=== PATIENT | male | born 1965 | race Caucasian/White ===

== ENCOUNTER 2023-11-27 15:49 | Emergency (ER) | payer OTHER, SELFPAY ==
[2023-11-27 15:52] VITALS: BP 144/95; PULSE 66; RESP 16; TEMP 36.6; O2SAT 99; BMI 21.4
--- NOTE | 2023-11-27 16:13 | ED.GENADUL1 ---
HPI - General Adult General Chief complaint: Dental/Oral Stated complaint: Dental Pain Time Seen by Provider: 11/27/23 15:56 Source: patient Mode of arrival: walk-in Limitations: no limitations History of Present Illness HPI narrative: Patient is a 58-year-old male who is presenting to the ER today with chief complaint of concern that he is having a partial piece of his tooth popping through his inner hard plate gum tissue from a previous fractured tooth. Patient says he has a dentist appointment in December. Patient is here because he wants a x-ray to see if it is a tooth or not. I educated patient that we do not perform dental x-rays in the ER. Patient states this small area has been there for months, he states today is 7/10 pain and wanted an x-ray to see if it is a tooth or not. No new swelling, no redness, no foul taste in his mouth, no drainage of pus. No signs of any infection, noticed facial swelling. All systems are negative except as noted/marked. All systems reviewed and otherwise negative. Nurses note and vital signs reviewed and patient is not hypoxic. Nurses notes reviewed and patient is noted to be non-hypoxic. General: The patient is comfortable, alert and oriented x3, well appearing, non toxic in no apparent distress. Patient smells of cigarette smoke. Head: Atraumatic and normocephalic. Eyes: Normal conjunctiva ENT: The oropharynx is normal. No pharyngeal erythema, uvular edema, tonsillar exudates, asymmetry or trismus. Uvula is midline. Patient has his lower teeth all extracted. Mouth is normal to inspection With the exception of a pain on percussion to the left lower inner aspect of the left lower hard palate, there is a 2 x 2 millimeter hard, jagged possible piece of tooth that is working its way through the soft tissue. This is not new, this has been there for months. There is no evidence of facial asymmetry or abscess formation. Floor of the mouth is soft. No tenderness in the submental or submandibular space. No tongue elevation or deviation. The patient has no evidence of periapical abscess, gingivitis, ANUG or other acute pathology. Airway is patent. Neck: The neck demonstrates normal range of motion. No meningeals signs are present. No stridor. No masses or lymphandenopathy noted. Respiratory: No acute distress, lungs are clear to auscultation, no wheezing, rhonchi, or rales noted. No stridor or retractions are noted. Cardiovascular: Regular rate and rhythm Skin: The skin exam shows no evidence of rashes Neuro: Alert and oriented x4, normal speech Lymphatic: No cervical lymphadenopathy Related Data Home Medications Medication Instructions Recorded Confirmed olanzapine 20 mg tablet 20 mg PO DAILY 11/27/23 11/27/23 sertraline 100 mg tablet 200 mg PO DAILY 11/27/23 11/27/23 Allergies Allergy/AdvReac Type Severity Reaction Status Date / Time Penicillins AdvReac Mild Verified 11/27/23 15:55 PFSH PFSH Social History Smoking status: Current every day smoker Exam Constitutional Vital Signs, click to edit/add: Last Vital Signs Temp 97.9 F 11/27/23 15:52 Pulse 66 11/27/23 15:52 Resp 16 11/27/23 15:52 BP 144/95 H 11/27/23 15:52 Pulse Ox 99 11/27/23 15:52 O2 Del Method Room Air 11/27/23 15:52 Course Vital Signs Vital signs: Vital Signs Temperature 97.9 F 11/27/23 15:52 Pulse Rate 66 11/27/23 15:52 Respiratory Rate 16 11/27/23 15:52 Blood Pressure 144/95 H 11/27/23 15:52 Pulse Oximetry 99 11/27/23 15:52 Oxygen Delivery Method Room Air 11/27/23 15:52 Temperature 97.9 F 11/27/23 15:52 Pulse Rate 66 11/27/23 15:52 Respiratory Rate 16 11/27/23 15:52 Blood Pressure 144/95 H 11/27/23 15:52 Pulse Oximetry 99 11/27/23 15:52 Oxygen Delivery Method Room Air 11/27/23 15:52 Medical Decision Making MDM Narrative Medical decision making narrative: Patient was given dental anesthesia. Patient was educated we do not perform dental x-rays in the ER. Patient will call his dentist to see if there is a cancellation that he can be seen sooner. Patient has no acute findings on today's exam. Patient's appearance of the ER he is discussing is inside of where tooth #20 used to be, left lower soft tissue looks like canker sore but does feel sharp and it may be a possible tooth. Patient understands a plan and follow-up with dentistry Discharge Plan Discharge Chief Complaint: Dental/Oral Clinical Impression: Atypical face pain, Toothache Patient Disposition: Home, Self-Care Time of Disposition Decision: 16:12 Condition: Fair Prescriptions / Home Meds: No Action sertraline 100 mg tablet 200 mg PO DAILY olanzapine 20 mg tablet 20 mg PO DAILY Instructions: Toothache (ED), Atypical Facial Pain (ED) Additional Instructions: See your dentist at your scheduled appointment. Call to see if there is any cancellations to see if he can move your dentist appointment up sooner. Use the cotton balls with medication half a cottonball every 6 hours as needed for pain. Use Tylenol Motrin as needed. Stand Alone Forms: Portal Instructions Referrals: SILVINA BEARD [Primary Care Provider] - 1 week
[2023-11-27] MEDS: BENZOCAINE 30 ML, lidocaine HCL 15 ML MM (16:25)
== END 2023-11-27 16:28 | disposition home or self-care (01) ==
PROVIDERS: Emergency Provider Emergency Medicine; PCP Internal Medicine
DX: K08.89 Other specified disorders of teeth and supporting structures (principal); G50.1 Atypical facial pain; Z79.899 Other long term (current) drug therapy; F17.210 Nicotine dependence, cigarettes, uncomplicated
CPT/HCPCS: 99282

== ENCOUNTER 2024-09-24 06:46 | Emergency (ER) | payer OTHER, SELFPAY ==
[2024-09-24 06:54] VITALS: BP 113/66; PULSE 57; TEMP 36.6; O2SAT 100; BMI 18.8
--- NOTE | 2024-09-24 07:04 | PC.NURSE ---
Patient reports fall from ladder 5 months ago and has had consistent back pain since. pain worsened over the past few days and feels like he can't get comfortable. patient c/o mid thoracic, bilateral scapula and shoulder pain. patient has attempted to take ibuprofen with no relief. patient's habitus is very thin and patient reports he has lost weight recently. areas on thoracic and cervical spine where pain is noted to be protruding more.
--- NOTE | 2024-09-24 07:17 | CT_ITS ---
The [address] [address] Patient Name: GRACE JURADO MRN: [id number] date: 1965 Sex: M Assigned Patient Location: ER Current Patient Location: ER Accession/Order Number: [id number] Exam Date: 09/24/2024 07:37 Report Date: 09/24/2024 08:14 At the request of: LEONARDA GRACE Procedure: CT thoracic spine wo con PROCEDURE: CT thoracic spine wo con HISTORY: pain COMPARISON: None. TECHNIQUE: Axial, Coronal, and Sagittal CT images obtained without IV contrast. Dose reduction techniques were achieved by using automated exposure control and/or adjustment of mA and/or kV according to patient size and/or use of iterative reconstruction technique. FINDINGS: PARASPINAL AREA: Normal with no visible mass. DISCS: No significant disc space narrowing. BONES: Prominent bone encroachment secondary to uncovertebral joint spurring and facet arthropathy involving the right T3-T4 and T4-T5 neural foramen. No significant central canal narrowing. No fracture, spondylolisthesis, bone lesion. OTHER: Negative. CT/CT thoracic spine wo con IMPRESSION: 1. No appreciable acute abnormality. 2. Right T3-T4 and T4-T5 neural foramen narrowing secondary to degenerative facet arthropathy and uncovertebral joint spurring. Electronically authenticated by: ANA BENSON Date: 09/24/2024 08:14
--- NOTE | 2024-09-24 07:17 | XR_ITS ---
The [address] [address] Patient Name: GRACE JURADO MRN: [id number] date: 1965 Sex: M Assigned Patient Location: ER Current Patient Location: ER Accession/Order Number: [id number] Exam Date: 09/24/2024 07:37 Report Date: 09/24/2024 07:59 At the request of: LEONARDA GRACE Procedure: XR chest 2V EXAM: XR chest 2V HISTORY: pain COMPARISON: None. TECHNIQUE: PA and lateral views of the chest performed. FINDINGS: The heart size is normal. The cardiac mediastinal silhouette and hilar shadows are unremarkable. There is no consolidation, pleural effusion or pulmonary vascular congestion. There is no pneumothorax. There is no acute osseous abnormality. XR/XR chest 2V IMPRESSION: There is no acute cardiopulmonary process. Electronically authenticated by: CATHI CARREON Date: 09/24/2024 07:59
--- OUTSIDE RECORDS SUMMARY | 2024-09-24 07:19 | XMS_ITS | CCD ---
Author Organization [facility] Care Team Providers Care Reimbursement Consultant Name Role Phone CARLOS ENRIQUE BEARD Admitting Unavailable CARLOS ENRIQUE BEARD Attending Unavailable CARLOS ENRIQUE BEARD Primary Care Unavailable CARLOS ENRIQUE BEARD Consulting Unavailable GURVINDER HILLIARD Consulting Unavailable CARLOS ENRIQUE BEARD Primary Care Unavailable QUENTIN ZHAO Admitting Unavailable CECE, QUENTIN Attending Unavailable CECE, QUENTIN Consulting Unavailable GUZMAN HAJI Consulting Unavailable AHMEDCODY Consulting Unavailable CARLOS ENRIQUE BEARD Primary Care Unavailable SAM KOENIG Consulting Unavailable QUENTIN ZHAO Admitting Unavailable QUENTIN ZHAO Attending Unavailable QUENTIN ZHAO Consulting Unavailable PURA RUSSELL Consulting Unavailable Josephine Castillo Unavailable [phone] RISA CANADA Attending Unavailable CARLOS ENRIQUE BEARD Attending Unavailable CARLOS ENRIQUE BEARD Attending Unavailable CARLOS ENRIQUE BEARD Attending Unavailable 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 Attending Unavailable Benjy Ackerman Attending Unavailab Benjy Hightower Admitting Unavailab Carlos Enrique Tipton Primary Care Unavailable Allergies Allergy Classification Reported Allergen(s) Allergy Type Date of Onset Reaction(s) Facility (1 source) Penicillins Drug allergy (disorder) 11-03-2016 [facility] Repository (1 source) Penicillin Drug Allergy Unknown [facility] Other (1 source) Penicillins Drug allergy (disorder) 08-04-2023 [facility] Repository Medications Current Medications Medication Drug Class(es) Dates Sig (Normalized) Sig (Original) atorvastatin 20 mg oral tablet (1 source) HMG-CoA Reductase Inhibitor take 1 tablet by mouth once daily Atorvastatin Calcium 20 MG TAKE 1 TABLET BY MOUTH ONCE DAILY Oral for 90 Days Active clindamycin 300 mg oral capsule (1 source) Lincosamide Antibacterial Start: 08-04-2023 take 1 capsule by mouth every twelve hours Clindamycin HCl 300 MG 1 capsule Orally every 12 hrs for 7 days Jul, Active levothyroxine sodium 0.1 mg oral tablet (1 source) l-Thyroxine Levothyroxine Sodium 100 MCG Oral for 90 Days Active mirtazapine 30 mg oral tablet (1 source) Mirtazapine 30 M G Oral for 67 Days Active OLANZapine 20 mg oral tablet (1 source) Atypical Antipsychotic take 1 tablet by mouth once daily OLANZapine 20 MG TAKE 1 TABLET BY MOUTH ONCE DAILY Oral for 67 Days Active sertraline 100 mg oral tablet (1 source) Serotonin Reuptake Inhibitor take 2 tablets by mouth once daily Sertraline HCl 100 MG TAKE 2 TABLETS BY MOUTH ONCE DAILY Oral for 67 Days Active Problems Active Problems Problem Classification Problem Date Documented Date Episodic/Chronic Anxiety disorders (5 sources) Anxiety disorder, unspecified; Translations: [ANXIETY DISORDER UNSPECIFIED] Onset: 0 Chronic Chronic obstructive pulmonary disease and bronchiectasis (1 source) Emphysema, unspecified; Translations: [EMPHYSEMA UNSPECIFIED] Onset: 0 Chronic Disorders of lipid metabolism (1 source) Hyperlipidemia, unspecified; Translations: [HYPERLIPIDEMIA UNSPECIFIED] Onset: 0 Chronic Disorders of lipid metabolism (1 source) Pure hypercholesterolemia, unspecified; Translations: [PURE HYPERCHOLESTEROLEMIA UNSPEC] Onset: 0 Esophageal disorders (1 source) Gastro-esophageal reflux disease without esophagitis; Translations: [GERD WITHOUT ESOPHAGITIS] Onset: 9 Chronic Fluid and electrolyte disorders (2 sources) Hypokalemia; Translations: [Dehydration] Onset: 0 Episodic Nonspecific chest pain (4 sources) Chest pain, unspecified; Translations: [CHEST PAIN UNSPECIFIED] Onset: 0 Episodic Other aftercare (1 source) Other residential (current) drug therapy; Translations: [OTH PENITENTIARY CURRENT DRUG THERAPY] Onset: 0 Episodic Substance-related disorders (1 source) Nicotine dependence, cigarettes, uncomplicated; Translations: [NICOTINE DEPEND CIGARETTES UNCOMP] Onset: 0 Chronic Superficial injury; contusion (1 source) Blister (nonthermal) of oral cavity, initial encounter Episodic Past or Other Problems Problem Classification Problem Date Documented Da te Episodic/Chronic Abdominal pain (4 sources) Unspecified abdominal pain; Translations: [UNSPECIFIED ABDOMINAL PAIN] Onset: 12-17-2018 Episodic Other nutritional; endocrine; and metabolic disorders (1 source) Anorexia; Translations: [ANOREXIA] Onset: 12-23-2018 Episodic Results Test Name Value Interpretation Reference Range Facility CBC AUTO DIFFon 12-05-2019 Basophils (Bld) [#/Vol] 0.1 103/ul Normal 0.0-0.1 [facility] Comment on above: Performed By: #### C BC #### [facility] [address] [place] [address] Loc Risa Basophils/100 WBC (Bld) 1.1 % Normal 0.2-2.0 [facility] Comment on above: Performed By: #### C BC #### [facility] [address] [place] [address] Loc Risa Eosinophils (Bld) [#/Vol] 0.2 103/ul Normal 0.0-0.7 [facility] Comment on above: Performed By: #### C BC #### [facility] [address] [place] [address] Loc Risa Eosinophils/100 WBC (Bld) 2.2 % Normal 0.9-7.0 [facility] Comment on above: Performed By: #### C BC #### [facility] [address] [place] [address] Loc Risa Erythrocyte distribution width (RBC) [Ratio] 15.1 % Critically high 11.0-15.0 [facility] Comment on above: Performed By: #### C BC #### [facility] [address] [place] [address] Loc Risa Hematocrit (Bld) [Volume fraction] 37.2 % Critically low 42.0-54.0 [facility] Comment on above: Performed By: #### C BC #### [facility] [address] [place], [place] [id number] Loc Risa Hemoglobin (Bld) [Mass/Vol] 12.4 g/dL Critically low 14.0-18.0 [facility] Comment on above: Performed By: #### C BC #### [facility] [address] [place] [address] Loc Risa IG # 0.04 10e3/ul Critically high 0.00-0.03 [facility] Comment on above: Performed By: #### C BC #### [facility] [address] [place], [place] [id number] Loc Risa IG % 0.4 % Normal 0.0-0.5 [facility] Comment on above: Performed By: #### C BC #### [facility] [address] [place], [place] [id number] Loc Risa Lymphocytes (Bld) [#/Vol] 2.9 103/ul Normal 1.2-3.8 [facility] Comment on above: Performed By: #### C BC #### [facility] [address] [place] [address] Loc Risa Lymphocytes/100 WBC (Bld) 31.6 % Normal 20.5-60.0 [facility] Comment on above: Performed By: #### C BC #### [facility] [address] [place] [address] Loc Rsia MANUAL DIFF REQ NO Normal [facility] Comment on above: Performed By: #### C BC #### [facility] [address] [place], [place] [id number] Loc Risa MCH (RBC) [Entitic mass] 27.0 pg Normal 25.9-34.0 [facility] Comment on above: Performed By: #### C BC #### [facility] [address] [place] [address] Loc Risa MCHC (RBC) [Mass/Vol] 33.3 g/dL Normal 29.9-35.2 [facility] Comment on above: Performed By: #### C BC #### [facility] [address] [place], [place] [id number] Loc Risa MCV (RBC) [Entitic vol] 81.0 fL Normal 80.0-94.0 [facility] Comment on above: Performed By: #### C BC #### [facility] [address] [place], [place] [id number] Loc Risa Monocytes (Bld) [#/Vol] 0.6 103/ul Normal 0.3-0.8 [facility] Comment on above: Performed By: #### C BC #### [facility] [address] [place], [place] [id number] Loc Risa Monocytes/100 WBC (Bld) 7.0 % Normal 1.7-12.0 [facility] Comment on above: Performed By: #### C BC #### [facility] [address] [place], [place] [id number] Loc Risa Neutrophils (Bld) [#/Vol] 5.3 103/ul Normal 1.4-6.5 [facility] Comment on above: Performed By: #### C BC #### [facility] [address] [place] [address] Loc Risa Neutrophils/100 WBC (Bld) 57.7 % Normal 43.0-75.0 [facility] Comment on above: Performed By: #### C BC #### [facility] [address] [place], [place] [id number] Loc Risa Platelet mean volume (Bld) [Entitic vol] 9.7 fL Normal 9.5-13.5 [facility] Comment on above: Performed By: #### C BC #### [facility] [address] [place], [place] [id number] Loc Risa Platelets (Bld) [#/Vol] 241 103/ul Normal 150-450 [facility] Comment on above: Performed By: #### C BC #### [facility] [address] [place], [place] [id number] Loc Risa RBC (Bld) [#/Vol] 4.59 106/ul Critically low 4.70-6.10 [facility] Comment on above: Performed By: #### C BC #### [facility] [address] [place], [place] [id number] Loc Risa WBC (Bld) [#/Vol] 9.2 103/ul Normal 4.0-11.0 [facility] Comment on above: Performed By: #### C BC #### [facility] [address] [place], [place] [id number] Loc Lord CTA CHEST WO W CONon 020 CTA CHEST WO W CON EXAMINATION: CTA BIENVENIDO ST WO W CON HISTORY: Acute shortness of breath. Mid chest pain. COMPARISON: None. TECHNIQUE: CT angiography of the pulmonary arteries following the administration of 57 mL Omnipaque 350 intravenous contrast. 3-D, coronal and sagittal MIP (maximum intensity projection) images were performed. Dose reduction techniques were achieved by using automated exposure control and/or adjustment of mA and/or kV according to patient size and/or use of iterative reconstruction technique. FINDINGS: No evidence of pulmonary arterial embolism. Mild paraseptal emphysema is present. The pleural spaces are clear. Nonenlarged and borderline-sized mediastinal and bilateral hilar lymph nodes are present, likely reactive. IMPRESSION: 1. No evidence of pulmonary arterial embolism. 2. Mild emphysema. 3. Nonenlarged and borderline-sized mediastinal and bilateral hilar lymph nodes, likely reactive. Normal [facility] D-DIMERon 12-05-2019 D-DIMER COMMENTS SEE BELOW Normal [facility] [place] Comment on above: Result Comment: Incr eases in D-Dimer concentration observed with thromboembolic events can be variable due to localization, size, and age of the thrombus. Therefore, a thromboembolic event cannot be diagnosed with certainty on the basis of the reference range. D-Dimers may also be elevated for a variety of disorders including: advanced age, , coronary disease, cancer, liver disease, infection, inflammation, hematoma, DIC, trauma, post-surgery, diabetes, thrombolytic or anticoagulant therapy, stress, and generalizd hospitalization. Performed By: #### D DIM ####[facility] [address] [place] [address]Loc Lord Fibrin D-dimer FEU IA (Bld) [Mass/Vol] 0.71 ug/mL Critically high 0.19-0.50 [facility] Comment on above: Result Comment: test repeated, critical value verified Performed By: #### D DIM ####[facility] [address] [place] [address]Loc Lord PROF 14(COMP METB)on Albumin [Mass/Vol] 3.6 g/dL Normal 3.5-5.0 [facility] Comment on above: Performed By: #### C MP, TROP ####[facility] [address] [place], [place] [address]Taeong Risa Albumin/Globulin [Mass ratio] 1.0 {ratio} Normal [facility] Comment on above: Performed By: #### C MP, TROP ####[facility] [address] [place], [place] [address]Cuofkl Risa ALP [Catalytic activity/Vol] 84 U/L Normal 38-126 [facility] Comment on above: Performed By: #### C MP, TROP ####[facility] [address] [place], [place] [address]Lnstrd Risa ALT [Catalytic activity/Vol] 25 U/L Normal 21-72 [facility] Comment on above: Performed By: #### C MP, TROP ####[facility] [address] [place], [place] [address]Vivmha Risa Anion gap [Moles/Vol] 17.1 mmol/L Normal [facility] [place] Comment on above: Performed By: #### C MP, TROP ####[facility] [address] [place], [place] [address]Pihyvi Risa AST [Catalytic activity/Vol] 19 U/L Normal 17-59 [facility] Comment on above: Performed By: #### C MP, TROP ####[facility] [address] [place] [address]Jstilv Risa Bilirubin Ql (U) 0.5 mg/dL Normal 0.2-1.3 [facility] [place] Comment on above: Performed By: #### C MP, TROP ####[facility] [address] [place], [place] [address]Kgcqza Risa Calcium [Mass/Vol] 8.8 mg/dL Normal 8.4-10.2 [facility] Comment on above: Performed By: #### C MP, TROP ####[facility] [address] [place], [place] [address]Zcpubg Risa Chloride [Moles/Vol] 104 mmol/L Normal 98-107 [facility] Comment on above: Performed By: #### C MP, TROP ####[facility] [address] [place], [place] [address]Fnkvyf Risa CO2 [Moles/Vol] 21.3 mmol/L Critically low 22.0-30.0 [facility] Comment on above: Performed By: #### C MP, TROP ####[facility] [address] [place], [place] [address]Gqlaop Risa Creatinine [Mass/Vol] 1.02 mg/dL Normal 0.66-1.25 [facility] Comment on above: Performed By: #### C MP, TROP ####[facility] [address] [place], [place] [address]Flashk Risa EGFR-AF BELARUSIAN >60 Normal >=60 [facility] [place] Comment on above: Performed By: #### C MP, TROP ####[facility] [address] [place], [place] [address]Mxspwy Risa EGFR-NON AF BELARUSIAN >60 Normal >=60 [facility] Comment on above: Performed By: #### C MP, TROP ####[facility] [address] [place] [address]Fbyaoc Risa Globulin (S) [Mass/Vol] 3.6 g/dL Normal [facility] Comment on above: Performed By: #### C MP, TROP ####[facility] [address] [place] [address]Gltwvh Risa Glucose [Mass/Vol] 99 mg/dL Normal 74-106 [facility] Comment on above: Performed By: #### C MP, TROP ####[facility] [address] [place] [address]Yysvvq Risa Potassium [Moles/Vol] 3.4 mmol/L Normal 3.4-5.0 [facility] Comment on above: Performed By: #### C MP, TROP ####[facility] [address] [place] [address]Rvrtqh Risa Protein [Mass/Vol] 7.2 g/dL Normal 6.1-8.2 [facility] Comment on above: Performed By: #### C MP, TROP ####[facility] [address] [place], [place] [address]Dkqhnq Risa Sodium [Moles/Vol] 139 mmol/L Normal 137-145 [facility] Comment on above: Performed By: #### C MP, TROP ####[facility] [address] [place], [place] [address]Dyvatx Risa Urea nitrogen [Mass/Vol] 19.0 mg/dL Normal 9.0-20.0 [facility] Comment on above: Performed By: #### C MP, TROP ####[facility] [address] [place], [place] [address]Zqobtt Risa Urea nitrogen/Creatinine [Mass ratio] 18.6 mg/mg Normal [facility] Comment on above: Performed By: #### C MP, TROP ####[facility] [address] [place], [place] [address]Fzhwue Risa PROTIMEon 12-05-2019 INR Coag (PPP) [Relative time] 1.05 {INR} Normal [facility] Comment on above: Performed By: #### P T, PTT #### [facility] [address] [place], [place] [address] Loc Risa PT Coag (PPP) [Time] 10.9 s Normal 9.0-11.6 [facility] Comment on above: Performed By: #### P T, PTT #### [facility] [address] [place], [place] [address] Loc Risa PT Coag (PPP) [Time] PLEASE NOTE: NORMAL RANGE CHANGE 06-22-2014 DUE TO REAGENT LOT CHANGE Normal [facility] Comment on above: Performed By: #### P T, PTT #### [facility] [address] [place], [place] [address] Loc Risa PT Coag (PPP) [Time] SEE BELOW Normal [facility] Comment on above: Result Comment: ADDI RED INR: 2.0 - 3.0 CONDITIONS NOT LISTED BELOW 2.5 - 3.5 FOR PROSTHETIC HEART VALVE REPLACEMENT 2.5 - 3.5 RECURRENT THROMBOSIS Performed By: #### P T, PTT #### [facility] [address] [place], [place] [address] Loc Lord PTTon 12-05-2019 aPTT Coag (Bld) [Time] 24.8 s Normal 22.3-36.2 [facility] Comment on above: Performed By: #### P T, PTT ####[facility] [address] [place] [phone] Lord aPTT Coag (Bld) [Time] PLEASE NOTE: NORM AL RANGE CHANGE 08-29-2015 DUE TO REAGENT LOT CHANGE Normal [facility] Comment on above: Performed By: #### P T, PTT ####[facility] [address] [place] [id number] Lord TROPONIN - Ion 12-05-2019 Troponin I.cardiac [Mass/Vol] SEE BELOW Normal [facility] Comment on above: Result Comment: <0.0 34 ng/ml NEGATIVE 0.034-0.119 INDETERMINATE 0.120 AMI CUT OFF Performed By: #### C MP, TROP ####[facility] [address] [place] [id number] Lord Troponin I.cardiac [Mass/Vol] ng/mL Normal <=0.034 [facility] Comment on above: Performed By: #### C MP, TROP ####[facility] [address] [place] [phone] Lord CBC AUTO DIFFon 12-04-2019 Basophils (Bld) [#/Vol] 0.1 103/ul Normal 0.0-0.1 [facility] Comment on above: Performed By: #### C BC #### [facility] [address] [place] [id number] Loc Risa Basophils/100 WBC (Bld) 1.2 % Normal 0.2-2.0 [facility] Comment on above: Performed By: #### C BC #### [facility] [address] [place] [id number] Loc Risa Eosinophils (Bld) [#/Vol] 0.1 103/ul Normal 0.0-0.7 [facility] Comment on above: Performed By: #### C BC #### [facility] [address] [place] [id number] Loc Risa Eosinophils/100 WBC (Bld) 1.1 % Normal 0.9-7.0 [facility] Comment on above: Performed By: #### C BC #### [facility] [address] [place], [place] [id number] Loc Risa Erythrocyte distribution width (RBC) [Ratio] 14.8 % Normal 11.0-15.0 [facility] Comment on above: Performed By: #### C BC #### [facility] [address] [place], [place] [id number] Loc Risa Hematocrit (Bld) [Volume fraction] 42.7 % Normal 42.0-54.0 [facility] Comment on above: Performed By: #### C BC #### [facility] [address] [place] [address] Loc Risa Hemoglobin (Bld) [Mass/Vol] 14.8 g/dL Normal 14.0-18.0 [facility] Comment on above: Performed By: #### C BC #### [facility] [address] [place], [place] [id number] Loc Risa IG # 0.05 10e3/ul Critically high 0.00-0.03 [facility] Comment on above: Performed By: #### C BC #### [facility] [address] [place], [place] [id number] Loc Risa IG % 0.4 % Normal 0.0-0.5 [facility] Comment on above: Performed By: #### C BC #### [facility] [address] [place], [place] [id number] Loc Risa Lymphocytes (Bld) [#/Vol] 2.7 103/ul Normal 1.2-3.8 [facility] Comment on above: Performed By: #### C BC #### [facility] [address] [place], [place] [id number] Loc Risa Lymphocytes/100 WBC (Bld) 23.1 % Normal 20.5-60.0 [facility] Comment on above: Performed By: #### C BC #### [facility] [address] [place], [place] [id number] Loc Lord MANUAL DIFF REQ NO Normal [facility] Comment on above: Performed By: #### C BC #### [facility] [address] [place], [place] [id number] Locannalise Lord MCH (RBC) [Entitic mass] 27.1 pg Normal 25.9-34.0 [facility] Comment on above: Performed By: #### C BC #### [facility] [address] [place], [place] [id number] Locannalise Lord MCHC (RBC) [Mass/Vol] 34.7 g/dL Normal 29.9-35.2 [facility] Comment on above: Performed By: #### C BC #### [facility] [address] [place], [place] [id number] Locannalise Orren MCV (RBC) [Entitic vol] 78.2 fL Critically low 80.0-94.0 [facility] Comment on above: Performed By: #### C BC #### [facility] [address] [place], [place] [id number] Loc Risa Monocytes (Bld) [#/Vol] 1.0 103/ul Critically high 0.3-0.8 [facility] Comment on above: Performed By: #### C BC #### [facility] [address] [place], [place] [id number] Loc Risa Monocytes/100 WBC (Bld) 8.4 % Normal 1.7-12.0 [facility] Comment on above: Performed By: #### C BC #### [facility] [address] [place], [place] [id number] Loc Risa Neutrophils (Bld) [#/Vol] 7.6 103/ul Critically high 1.4-6.5 [facility] Comment on above: Performed By: #### C BC #### [facility] [address] [place], [place] [id number] Loc Risa Neutrophils/100 WBC (Bld) 65.8 % Normal 43.0-75.0 [facility] Comment on above: Performed By: #### C BC #### [facility] [address] [place] [id number] Loc Risa Platelet mean volume (Bld) [Entitic vol] 9.3 fL Critically low 9.5-13.5 [facility] Comment on above: Performed By: #### C BC #### [facility] [address] [place] [id number] Loc Risa Platelets (Bld) [#/Vol] 285 103/ul Normal 150-450 [facility] Comment on above: Performed By: #### C BC #### [facility] [address] [place], [place] [id number] Loc Risa RBC (Bld) [#/Vol] 5.46 106/ul Normal 4.70-6.10 [facility] Comment on above: Performed By: #### C BC #### [facility] [address] [place], [place] [id number] Loc Risa WBC (Bld) [#/Vol] 11.6 103/ul Critically high 4.0-11.0 [facility] Comment on above: Performed By: #### C BC #### [facility] [address] [place], [place] [id number] Locannalise Orren PROF CHEM 8 (BAS METB)on Anion gap [Moles/Vol] 20.8 mmol/L Normal [facility] Comment on above: Performed By: #### T ROP, TSH, T4, BMP #### [facility] [address] [place], [place] [id number] Loc Risa Calcium [Mass/Vol] 9.9 mg/dL Normal 8.4-10.2 [facility] Comment on above: Performed By: #### T ROP, TSH, T4, BMP #### [facility] [address] [place], [place] [id number] Loc Risa Chloride [Moles/Vol] 102 mmol/L Normal 98-107 [facility] Comment on above: Performed By: #### T ROP, TSH, T4, BMP #### [facility] [address] [place], [place] [id number] Loc Risa CO2 [Moles/Vol] 18.4 mmol/L Critically low 22.0-30.0 [facility] Comment on above: Performed By: #### T ROP, TSH, T4, BMP #### [facility] [address] [place] [address] Loc Risa Creatinine [Mass/Vol] 1.50 mg/dL Critically high 0.66-1.25 [facility] Comment on above: Performed By: #### T ROP, TSH, T4, BMP #### [facility] [address] [place] [address] Loc Risa EGFR-AF BELARUSIAN 59 mL/min/1.73m2 Critically low >=60 [facility] Comment on above: Performed By: #### T ROP, TSH, T4, BMP #### [facility] [address] [place] [address] Loc Risa EGFR-NON AF BELARUSIAN 49 mL/min/1.73m2 Critically low >=60 [facility] Comment on above: Performed By: #### T ROP, TSH, T4, BMP #### [facility] [address] [place] [address] Loc Risa Glucose [Mass/Vol] 101 mg/dL Normal 74-106 [facility] Comment on above: Performed By: #### T ROP, TSH, T4, BMP #### [facility] [address] [place] [address] Loc Risa Potassium [Moles/Vol] 3.2 mmol/L Critically low 3.4-5.0 [facility] Comment on above: Performed By: #### T ROP, TSH, T4, BMP #### [facility] [address] [place] [address] Loc Risa Sodium [Moles/Vol] 138 mmol/L Normal 137-145 [facility] Comment on above: Performed By: #### T ROP, TSH, T4, BMP #### [facility] [address] [place] [address] Loc Risa Urea nitrogen [Mass/Vol] 26.0 mg/dL Critically high 9.0-20.0 [facility] Comment on above: Performed By: #### T ROP, TSH, T4, BMP #### [facility] [address] [place] [address] Loc Lord Urea nitrogen/Creatinine [Mass ratio] 17.3 mg/mg Normal [facility] Comment on above: Performed By: #### T ROP, TSH, T4, BMP #### [facility] [address] [place] [address] Loc Lord T4on 12-04-2019 T4 [Mass/Vol] 7.40 ug/dL Normal 5.53-11.00 [facility] Comment on above: Performed By: #### T ROP, TSH, T4, BMP #### [facility] [address] [place] [address] Loc Lord TROPONIN - Ion 12-04-2019 Troponin I.cardiac [Mass/Vol] ng/mL Normal <=0.034 [facility] Comment on above: Performed By: #### T ROP, TSH, T4, BMP #### [facility] [address] [place] [address] Loc Lord Troponin I.cardiac [Mass/Vol] SEE BELOW Normal [facility] Comment on above: Result Comment: <0.0 34 ng/ml NEGATIVE 0.034-0.119 INDETERMINATE 0.120 AMI CUT OFF Performed By: #### T ROP, TSH, T4, BMP #### [facility] [address] [place] [address] Loc Lord TSHon 12-04-2019 TSH Qn SEE BELOW [facility] Comment on above: Result Comment: <0.3 4 UIU/ml HYPERTHYROID 0.34-5.60 UIU/ml EUTHYROID >5.60 UIU/ml HYPOTHYROID Performed By: #### T ROP, TSH, T4, BMP #### [facility] [address] [place] [address] Locannalise Lord TSH Qn 11.107 uIU/mL Critically high 0.470-4.680 [facility] Comment on above: Performed By: #### T ROP, TSH, T4, BMP #### [facility] [address] [place] [address] Locannalise Lord XR CHEST 2 Von 12-04-2019 XR CHEST 2 V EXAM:XR CHEST 2 V 12/04/2019 INDICATION: SHORTNESS OF BREATH COMPARISON: None. TECHNIQUE: PA and lateral chest radiographs. FINDINGS: The cardiomediastinal contour is within normal limits. There is chronic bronchial wall thickening. No focal consolidative opacity. No pleural effusion. No acute abnormalities of the visualized osseous structures. IMPRESSION: Chronic bronchial wall thickening is likely related to sequela of COPD. No focal consolidative opacity. Normal [facility] XR CINERADIOGRAPHYon 019 XR CINERADIOGRAPHY [address] [place] [address] Patient: OLE STEPHENS Exam Date: 12/17/2018 : 1965 Gender:M Ordering : DR CARLOS ENRIQUE BEARD M.D. Admission #: [id number] Family : Order #: [id number] CLICK HERE TO VIEW EXAM RADIOLOGY REPORT PROCEDURE: RADIOGRAPH GI UPPER AIR KUB COMPARISON: None. INDICATIONS: Acute loss of appetite and umbilical pain for two months. TECHNIQUE: An air contrast upper gastrointestinal series was performed in the usual manner. Standard level fluoroscopic mode of operation utilized. FLUORO TIME/IMAGES: 1.4 mins/ 13 images FINDINGS: ESOPHAGUS: Multiple episodes of gastroesophageal reflux extending to the thoracic inlet. No abnormal esophageal dilation, mucosal irregularity, or stricture. STOMACH: No obstruction, mass, or ulceration. Normal motility. DUODENUM: Normal. No ulceration or diverticulum. OTHER: Negative. CONCLUSION: 1. Frequent episodes of moderate-marked gastroesophageal reflux. No visible esophageal damage. Dictated by: Gurvinder Hilliard M.D. on 12/17/2018 at 13:58 Approved by: Gurvinder Hilliard M.D. on 12/17/2018 at 14:01 Normal [facility] XR UPPER GI W AIR KUBon 12-03 XR UPPER GI W AIR KUB [address] [place] [address] Patient: OLE STEPHENS Exam Date: 12/17/2018 : 1965 Gender:M Ordering : DR CARLOS ENRIQUE BEARD M.D. Admission #: [id number] Family : Order #: [id number] CLICK HERE TO VIEW EXAM RADIOLOGY REPORT PROCEDURE: RADIOGRAPH GI UPPER AIR KUB COMPARISON: None. INDICATIONS: Acute loss of appetite and umbilical pain for two months. TECHNIQUE: An air contrast upper gastrointestinal series was performed in the usual manner. Standard level fluoroscopic mode of operation utilized. FLUORO TIME/IMAGES: 1.4 mins/ 13 images FINDINGS: ESOPHAGUS: Multiple episodes of gastroesophageal reflux extending to the thoracic inlet. No abnormal esophageal dilation, mucosal irregularity, or stricture. STOMACH: No obstruction, mass, or ulceration. Normal motility. DUODENUM: Normal. No ulceration or diverticulum. OTHER: Negative. CONCLUSION: 1. Frequent episodes of moderate-marked gastroesophageal reflux. No visible esophageal damage. Dictated by: Gurvinder Hilliard M.D. on 12/17/2018 at 13:58 Approved by: Gurvinder Hilliard M.D. on 12/17/2018 at 14:01 Normal [facility] Vital Signs Date Time Vital Sign Value Performing Clinician Facility 08-04-2023 13:25-0400 Body height 180.34 cm Josephine Castillo Other [facility] Other 08-04-2023 13:25-0400 Body mass index (BMI) [Ratio] 18.6 kg/m2 Josephine Castillo Other [facility] Other 08-04-2023 13:25-0400 Body temperature 97.3 [degF] Josephine Castillo Other [facility] Other 08-04-2023 13:25-0400 Body weight 60.51 kg Josephine Castillo Other [facility] Other 08-04-2023 13:25-0400 Diastolic blood pressure 87 mm[Hg] Josephine Castillo Other [facility] Other 08-04-2023 13:25-0400 Respiratory rate 18 /min Josephine Castillo Other [facility] Other 08-04-2023 13:25-0400 SaO2% (BldA) [Mass fraction] 96 % Josephine Castillo Other [facility] Other 08-04-2023 13:25-0400 Systolic blood pressure 128 mm[Hg] Josephine Castillo Other [facility] Other Encounters Encounter Date Encounter Type Care Provider Facility Start: 05-11-2024 ambulatory Benjy Carbajal acility:[facility] Start: 05-11-2024 End: 05-11-2024 ambulatory 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 Not Available Start: 02-04-2024 End: 02-04-2024 ambulatory CARLOS ENRIQUE BEARD Not Available Start: 01-25-2024 End: 01-25-2024 ambulatory CARLOS ENRIQUE BEARD Not Available Start: 01-07-2024 End: 01-07-2024 ambulatory CARLOS ENRIQUE BEARD Not Available Start: 12-09-2023 End: 12-09-2023 ambulatory RISA CANADA Not Available Start: 08-04-2023 End: 08-04-2023 ambulatory Josephine Castillo Other [facility] Other Start: 08-04-2023 Office outpatient ne w 20 minutes Josephine Castillo [facility] Start: 12-05-2019 End: 12-05-2019 Patient encounter procedure CARLOS ENRIQUE BEARD Facility:[facility] Start: 12-04-2019 End: 12-04-2019 Patient encounter procedure CARLOS ENRIQUE BEARD Facility:[facility] Start: 12-17-2018 End: 12-18-2018 Patient encounter procedure CARLOS ENRIQUE BEARD Facility:[facility] Payers Date Payer Category Payer Medicare [id number] 2023 Self-pay 1965 Unknown [id number] 2.16.84 [id number] 1965 Unknown [id number] 2.16.84 [id number] 1965 Unknown [id number] 2.16.84 [id number] 1965 Unknown [id number] 2.16.84 [id number] 1965 Unknown [id number] 2.16.84 [id number] 1965 Unknown [id number] 2.16.84 [id number] 1965 Unknown [id number] 2.16.84 [id number] 1965 Unknown [id number] 2.16.84 [id number] 1958 Medicaid [id number] 1958 Medicare [id number] Unknown [id number] 2.16.8 [id number] Social History Date Type Detail Facility Unknown if ever smoked [facility] Other Sex Assigned At Sex Assigned At Bir th [facility] Other Evaluation note 08-04-2023 Note Date & Type Note Facility 08-04-2023 Evaluation note Encounter Date Diagnosis Assessment Notes Jul, Blister (nonthermal) of oral cavity, initial encounter (ICD-10 - S00.522A) Pt to take meds as prescribed. Take abx with food. No other nsaids while on anti-inflammat ory. Pt to f/u mini with dentist for further management. Educated pt on proper brushing technique and dental care. Avoid chewing on that side. May use oral gel on the area. Pt understood agreed to treatment plan. [facility] Other Summary Purpose Family History No Family History Records FoundNo Family History Records FoundNo Family History Records Found Advance Directives No Advanced Directives Records FoundNo Advanced Directives Records FoundNo Advanced Directives Records Found Additional Source Comments (unrecognized sect ion and content) No Status Records FoundNo Status Records FoundNo Status Records Found INFORMATION SOURCE (unrecogn ized section and content) DATE CREATED AUTHOR 12/07/2019 [facility] DATE CREATED AUTHOR AUTHOR'S ORGANIZ ATION 05/13/2024 [facility] EPIC DATE CREATED AUTHOR AUTHOR'S ORGANIZ ATION 05/24/2024 [facility] REASON FOR VISIT (unrecogniz ed section and content) SORE IN MOUTH, BOTTOM IN MID DLE FOR RECORDS PERTAINING TO PATIENTS WHO ARE OR HAVE BEEN ENROLLED IN A CHEMICAL DEPENDENCY/SUBSTANCEABUSE PROGRAM, SOME INFORMATION MAY BE OMITTED. This clinical summary was aggregated from multiple sources. Caution should be exercised in using it in the provision of clinical care. This summary normalizes information from multiple sources, and as a consequence, information in this document may materially change the coding, format and clinical context of patient data. In addition, data may be omitted in some cases. CLINICAL DECISIONS SHOULD BE BASED ON THE PRIMARY CLINICAL RECORDS. [facility] [employer] provides no warranty or guarantee of the accuracy or completeness of information in this document.
[2024-09-24] MEDS: KETOROLAC TROMETHAMINE 30 MG/ML VIAL IM (07:33)
[2024-09-24] MEDS: PREDNISONE 20 MG TABLET 40 MG PO (07:33)
--- NOTE | 2024-09-24 08:35 | ED_ITS ---
HPI HPI - Back Pain/Injury General Chief Complaint: Back Pain/Injury Stated Complaint: BACK PAIN Time Seen by Provider: 09/24/24 07:01 Source: patient Mode of arrival: walk-in Limitations: no limitations History of Present Illness HPI Narrative: The patient comes to us with upper back pain that been going on at least for the last few months , this all started after a fall injury The patient denies any radiation down his legs any numbness tingling or any weakness but he mentioned that the pain is continuous He did not follow-up with his primary care doctor otherwise He mentioned that he had been losing some weight over the last few months as well Patient have history of smoking cigarettes less than 1 pack/day Related Data Home Medications ?Medication ?Instructions ?Recorded ?Confirmed olanzapine 20 mg tablet 20 mg PO DAILY 11/27/23 11/27/23 sertraline 100 mg tablet 200 mg PO DAILY 11/27/23 09/24/24 atorvastatin 20 mg tablet 20 mg PO DAILY 09/24/24 09/24/24 buspirone 5 mg tablet 5 mg PO TID 09/24/24 09/24/24 Previous Rx's ?Medication ?Instructions ?Recorded diclofenac sodium 75 mg 75 mg PO BID PRN pain #14 tabs 09/24/24 tablet,delayed release orphenadrine citrate 100 mg 100 mg PO BID PRN muscle spasm #14 09/24/24 tablet,extended release tabs Allergies Allergy/AdvReac Type Severity Reaction Status Date / Time Penicillins Allergy Mild swelling Verified 09/24/24 06:59 Opioid HPI Opioid Management Most Recent Opioid Data: Last Pain Scale 10 09/24/24 07:33 09/24/24 Last MAR Pain Assessment 09/24/24 07:33 Review of Systems ROS Status of ROS 10 or more systems reviewed and unremark able except as noted in h istory and below PFSH PFSH Social History Smoking status: Current every day smoker Little interest or pleasure in doing things: not at all Feeling down, depressed, or hopeless: not at all Exam Narrative Exam Narrative: Nurses notes and vital signs reviewed and patient is not hypoxic. General: Well-appearing and in no apparent distress. Skin: Warm, dry, no pallor noted. No rash. Head: Normocephalic, atraumatic. Neck: Supple, non-tender. Eye: Pupils are equal, round and EOMI. No scleral icterus. Ears, Nose, Mouth, and Throat: TM are clear, no nasal mucosal hypertrophy. Oral mucosa is moist, no posterior oropharynx erythema, uvula is mid-line Cardiovascular: Regular Rate and Rhythm without murmur, gallop or rub. Respiratory: No accessory muscle use or respiratory distress. Lungs are clear to auscultation, no wheezing, rales or rhonchi Chest Wall: no tenderness Back: There is tenderness upon palpation of the mid thoracic area as well as paraspinal level Musculoskeletal: normal ROM, no calf or popliteal tenderness, no lower extremity edema/swelling GI: Abdomen is soft, non-distended. Normal bowel sounds. No masses appreciated. No tenderness to palpation. No rebound, guarding, or rigidity noted. Neurological: A&O x4. No cranial nerve dysfunction observed. No truncal ataxia. Moves all extremities. Sensation intact. Psychiatric: Cooperative and interactive. Normal mood and affect. Constitutional Vital Signs, click to edit/add: Last Vital Signs Temp 97.9 F 09/24/24 06:54 Pulse 57 L 09/24/24 06:54 Resp 16 09/24/24 06:54 BP 113/66 09/24/24 06:54 Pulse Ox 100 09/24/24 06:54 O2 Del Method Room Air 09/24/24 06:54 Course Vital Signs Vital signs: Vital Signs Temperature 97.9 F 09/24/24 06:54 Pulse Rate 57 L 09/24/24 06:54 Respiratory Rate 16 09/24/24 06:54 Blood Pressure 113/66 09/24/24 06:54 Pulse Oximetry 100 09/24/24 06:54 Oxygen Delivery Method Room Air 09/24/24 06:54 Temperature 97.9 F 09/24/24 06:54 Pulse Rate 57 L 09/24/24 06:54 Respiratory Rate 16 09/24/24 06:54 Blood Pressure 113/66 09/24/24 06:54 Pulse Oximetry 100 09/24/24 06:54 Oxygen Delivery Method Room Air 09/24/24 06:54 MDM - Back Pain/Injury MDM Narrative Medical decision making narrative: The patient CT of the thoracic spine showed that the patient have multiple disc disease he also had a x-ray of the chest showed no acute pathology Patient feeling better after being treated with Toradol he was discharged home with Voltaren and Norflex He was instructed to stop taking ibuprofen The patient is to follow up with primary care physician in next 2-3 days or to return to the emergency department should any of the signs or symptoms worsen or new symptoms develop. The patient agrees with the following Diagnosis and Treatment plan and the patient will be discharged home. Discharge Plan Discharge Chief Complaint: Back Pain/Injury Clinical Impression: Back pain Patient Disposition: Home, Self-Care Time of Disposition Decision: 08:32 Condition: Good Prescriptions / Home Meds: New orphenadrine citrate 100 mg tablet extended release 100 mg PO BID PRN (Reason: muscle spasm) Qty: 14 0RF diclofenac sodium 75 mg tablet,delayed release (DR/EC) 75 mg PO BID PRN (Reason: pain ) Qty: 14 0RF No Action atorvastatin 20 mg tablet 20 mg PO DAILY buspirone 5 mg tablet 5 mg PO TID sertraline 100 mg tablet 200 mg PO DAILY olanzapine 20 mg tablet 20 mg PO DAILY Print Language: Polish Instructions: Back Pain (ED) Referrals: SILVINA BEARD [Primary Care Provider] - 1 week
== END 2024-09-24 08:44 | disposition home or self-care (01) ==
PROVIDERS: Emergency Provider Emergency Medicine; PCP Internal Medicine
DX: M54.89 Other dorsalgia (principal); F17.210 Nicotine dependence, cigarettes, uncomplicated; Z91.81 History of falling
CPT/HCPCS: 71046; 72128; 96372; 99284; J1885; J7512

== ENCOUNTER 2024-11-28 10:49 | Emergency (ER) | payer OTHER, SELFPAY ==
[2024-11-28 10:54] VITALS: BP 127/76; PULSE 72; TEMP 36.7; O2SAT 100; BMI 19.9
--- OUTSIDE RECORDS SUMMARY | 2024-11-28 11:13 | XMS_ITS | CCD ---
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 Name Role Phone CARLOS ENRIQUE MAGUIRE Admitting Unavailable CARLOS ENRIQUE MAGUIRE Attending Unavailable CARLOS ENRIQUE MAGUIRE Primary Care Unavailable CARLOS ENRIQUE MAGUIRE Consulting Unavailable GURVINDER HILLIARD Consulting Unavailable CARLOS ENRIQUE MAGUIRE Primary Care Unavailable QUENTIN ZHAO Admitting Unavailable QUENTIN ZHAO Attending Unavailable QUENTIN ZHAO Consulting Unavailable GUZMAN HAJI Consulting Unavailable AHMEDCODY Consulting Unavailable CARLOS ENRIQUE MAGUIRE Primary Care Unavailable SAM KOENIG Consulting Unavailable QUENTIN ZHAO Admitting Unavailable QUENTIN ZHAO Attending Unavailable QUENTIN ZHAO Consulting Unavailable PURA RUSSELL Consulting Unavailable Josephine Castillo Unavailable [phone] Carlos Enrique Maguire MD Unavailable [phone] Carlos Enrique Maguire MD Primary Care Provider Benjy Ackerman Attending Unavailab Benjy Hightower Admitting Unavailab Carlos Enrique Tipton Primary Care Unavailable MIRNA KONG Attending Unavailable RISA CANADA Attending Unavailable CARLOS ENRIQUE MAGUIRE Attending Unavailable CARLOS ENRIQUE MAGUIRE Attending Unavailable CARLOS ENRIQUE MAGUIRE Attending Unavailable 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 Attending Unavailable MIRNA KONG Attending Unavailable Allergies Allergy Classification Reported Allergen(s) Allergy Type Date of Onset Reaction(s) Facility (1 source) Penicillins Drug allergy (disorder) 7 [facility] Repository (1 source) Penicillin Drug Allergy Unknown [facility] Other (7 sources) Penicillins Drug Intolerance 0 Swelling [facility] Healthcare Work Phone: (1 source) Penicillins Drug allergy (disorder) 3 [facility] Repository Medications Current Medications Medication Drug Class(es) Dates Sig (Normalized) Sig (Original) atorvastatin 20 mg oral tablet (10 sources) HMG-CoA Reductase Inhibitor Start: 12-10-2023 End: 02-07-2025 take 1 tablet by mouth once daily atorvastatin (Lipitor) 20 MG tablet Indications: Mixed hyperlipidemia (CMS/HCC) Take 1 tablet (20 mg) by mouth Daily 30 tablet 2 11/09/2024 02/07/2025 Active take 1 tablet by mouth once mathew y Atorvastatin Calcium 20 MG TAKE 1 TABLET BY MOUTH ONCE DAILY Oral for 90 Days Active 24 hr buPROPion hydrochloride 150 mg extended release oral tablet (8 sources) Aminoketone Start: 09-29-2024 End: 01-08-2025 take 1 tablet by mouth every twenty-four hours in the morning buPROPion XL (Wellbutrin XL) 150 MG 24 hr tablet Indications: Reactive depression (situational) (CMS/HCC) Take 1 tablet (150 mg) by mouth in the morning. Do not crush, chew, or split.. 30 tablet 2 11/09/2024 01/08/2025 Active busPIRone hydrochloride 5 mg oral tablet (9 sources) Start: 11-09-2024 End: 12-09-2024 take 2 tablets by mouth in the morning, then take 2 tablets by mouth in the evening, then take 2 tablets by mouth at bedtime busPIRone (Buspar) 5 MG tablet Indications: Reactive depression (situational) (CMS/HCC) Take 2 tablets (10 mg) by mouth in the morning and 2 tablets (10 mg) in the evening and 2 tablets (10 mg) before bedtime. 180 tablet 11/09/2024 12/09/2024 Active Start: 01-22-2024 End: 11-09-2024 take 1 tablet by mouth in the morning busPIRone (Buspar) 5 MG tablet Take 5 mg by mouth in the morning and 5 mg before bedtime. 01/22/2024 11/09/2024 Discontinued (Reorder) clindamycin 300 mg oral capsule (1 source) Lincosamide Antibacterial Start: 08-04-2023 take 1 capsule by mouth every twelve hours Clindamycin HCl 300 MG 1 capsule Orally every 12 hrs for 7 days Jul, Active levothyroxine sodium 0.1 mg oral tablet (10 sources) l-Thyroxine Start: 12-10-2023 End: 11-09-2024 take 1 tablet by mouth before mealtime levothyroxine (Synthroid, Levoxyl) 100 MCG tablet Indications: Hypothyroidism, unspecified (CMS/HCC) Take 1 tablet (100 mcg) by mouth in the morning. Take before meals. 100 tablet 3 11/09/2024 Active Levothyroxine So dium 100 MCG Oral for 90 Days Active LORazepam 0.5 mg oral tablet (8 sources) Benzodiazepine Start: 08-08-2024 End: 02-07-2025 take 1 tablet by mouth every twenty-four hours as needed for anxiety and anxiety and anxiety LORazepam (Ativan) 0.5 MG tablet Indications: Anxiety Take 1 tablet (0.5 mg) by mouth Daily as needed for anxiety 30 tablet 2 11/09/2024 02/07/2025 Active mirtazapine 30 mg oral tablet (10 sources) Start: 01-22-2024 End: 02-07-2025 take 1 tablet by mouth at bedtime mirtazapine (Remeron) 30 MG tablet Indications: Reactive depression (situational) (CMS/HCC) Take 1 tablet (30 mg) by mouth at bedtime 30 tablet 2 11/09/2024 02/07/2025 Active Mirtazapine 30 M G Oral for 67 Days Active sertraline 100 mg oral tablet (10 sources) Serotonin Reuptake Inhibitor Start: 11-09-2024 End: 02-07-2025 take 2 tablets by mouth at bedtime sertraline (Zoloft) 100 MG tablet Indications: Reactive depression (situational) (CMS/HCC) Take 2 tablets (200 mg) by mouth at bedtime 60 tablet 2 11/09/2024 02/07/2025 Active tiZANidine 4 mg oral tablet (9 sources) Central alpha-2 Adrenergic Agonist Start: 01-25-2024 End: 12-09-2024 take 1 tablet by mouth every eight hours for muscle spasms tiZANidine (Zanaflex) 4 MG tablet Indications: Acute strain of neck muscle, initial encounter Take 1 tablet (4 mg) by mouth every 8 (eight) hours if needed for muscle spasms 90 tablet 11/09/2024 12/09/2024 Active Completed/Discontinued Medications Medication Drug Class(es) Dates Sig (Normalized) Sig (Original) ALPRAZolam 0.25 mg oral tablet (6 sources) Benzodiazepine Start: 09-29-2024 End: 11-09-2024 take 1 tablet by mouth three times daily as needed for anxiety ALPRAZolam (Xanax) 0.25 MG tablet Indications: Situational mixed anxiety and depressive disorder (CMS/HCC) Take 1 tablet (0.25 mg) by mouth 3 (three) times a day as needed for anxiety for up to 10 days 30 tablet 09/29/2024 11/09/2024 Discontinued (Side effects) cariprazine 4.5 mg oral capsule (9 sources) Atypical Antipsychotic Start: 08-08-2024 End: 11-09-2024 take 1 capsule by mouth once daily Vraylar 4.5 MG capsule Take 1 capsule by mouth Daily 08/08/2024 11/09/2024 Discontinued (Cost of medication) End: 09-29-2024 take 1 capsule by mouth once daily Cariprazine HCl (Vraylar) 3 MG capsule Take 3 mg by mouth Daily 09/29/2024 Discontinued (Other) diclofenac sodium 75 mg delayed release oral tablet (10 sources) Nonsteroidal Anti-inflammatory Drug Start: 09-24-2024 End: 01-08-2025 take 1 tablet by mouth in the morning diclofenac (Voltaren) 75 MG EC tablet Indications: Severe back pain Take 1 tablet (75 mg) by mouth in the morning and 1 tablet (75 mg) before bedtime. 60 tablet 1 09/29/2024 11/09/2024 Discontinued (Reorder) OLANZapine 5 mg oral tablet (8 sources) Atypical Antipsychotic Start: 01-22-2024 End: 11-09-2024 take 1 tablet by mouth at bedtime OLANZapine (ZyPREXA) 5 MG tablet Take 1 tablet by mouth at bedtime 01/22/2024 11/09/2024 Discontinued (Side effects) take 1 tablet by mouth once mathew y OLANZapine 20 MG TAKE 1 TABLET BY MOUTH ONCE DAILY Oral for 67 Days Active 12 hr orphenadrine citrate 100 mg extended release oral tablet (8 sources) Muscle Relaxant Start: 09-24-2024 End: 11-28-2024 take 1 tablet by mouth twice daily as needed for muscle spasms orphenadrine (Norflex) 100 MG 12 hr tablet Indications: Muscle spasm Take 1 tablet (100 mg) by mouth 2 (two) times a day as needed for muscle spasms Do not crush, chew, or split. 60 tablet 1 09/29/2024 11/09/2024 Discontinued (Cost of medication) Problems Active Problems Problem Classification Problem Date Documented Date Episodic/Chronic Adjustment disorders (2 sources) Mixed anxiety and depressive disorder; Translations: [Adjustment disorder with mixed anxiety and depressed mood] 09-29-2024 Chronic Alcohol-related disorders (14 sources) History of alcohol abuse; Translations: [Alcohol abuse, in remission] Onset: 12-07-19 Resolved : 12-09-1912-09-2023 Chronic Anxiety disorders (14 sources) Anxiety disorder, unspecified; Translations: [Anxiety disorder] Onset: 12-04-1907-01-2023 Chronic Anxiety disorders (2 sources) Organic anxiety disorder; 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] 11-09-2024 Episodic Chronic obstructive pulmonary disease and bronchiectasis (1 source) Emphysema, unspecified; Translations: [EMPHYSEMA UNSPECIFIED] Onset: 12-07-19 Chronic Disorders of lipid metabolism (10 sources) Hyperlipidemia, unspecified; Translations: [Mixed hyperlipidemia] Onset: 12-06-1907-01-2023 Chronic Disorders of lipid metabolism (1 source) Pure hypercholesterolemia, unspecified; Translations: [PURE HYPERCHOLESTEROLEMIA UNSPEC] Onset: 12-07-19 Epilepsy; convulsions (9 sources) Seizure; Translations: [Unspecified convulsions] Onset: 07-01-2007-01-2023 Episodic Esophageal disorders (8 sources) Gastro-esophageal reflux disease without esophagitis; Translations: [Gastroesophageal reflux disease] Onset: 12-24-19 19 07-01-2023 Chronic Fluid and electrolyte disorders (2 sources) Hypokalemia; Translations: [Dehydration] Onset: 12-06-19 Episodic Mood disorders (20 sources) Bipolar disorder; Translations: [Bipolar disorder, unspecified] Onset: 07-01-2007-01-2023 Chronic Nonspecific chest pain (4 sources) Chest pain, unspecified; Translations: [CHEST PAIN UNSPECIFIED] Onset: 12-05-19 Episodic Other aftercare (1 source) 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; Translations: [OTH INTERMEDIATE CURRENT DRUG THERAPY] Onset: 12-07-19 Episodic Other aftercare (2 sources) Post-discharge follow-up; Translations: [Encounter for follow-up examination after completed treatment for conditions other than malignant neoplasm] 10-13-2024 Episodic Other connective tissue disease (2 sources) Spasm; Translations: [Other muscle spasm] 09-29-2024 Episodic Other gastrointestinal disorders (7 sources) Chronic idiopathic constipation; Translations: [Chronic idiopathic constipation] Onset: 12-09-19 24 12-09-2023 Chronic Other nutritional; endocrine; and metabolic disorders (9 sources) Loss of appetite; Translations: [Anorexia] Onset: 07-01-2007-01-2023 Episodic Other nutritional; endocrine; and metabolic disorders (2 sources) Weight loss; Translations: [Abnormal weight loss] 09-29-2024 Episodic Spondylosis; intervertebral disc disorders; other back problems (4 sources) Degeneration of thoracic intervertebral disc; Translations: [Other intervertebral disc degeneration, thoracic region] 09-29-2024 Chronic Spondylosis; intervertebral disc disorders; other back problems (4 sources) Backache; Translations: [Dorsalgia, unspecified] 09-29-2024 Episodic Sprains and strains (2 sources) Strain of neck muscle; Translations: [Strain of muscle, fascia and tendon at neck level, initial encounter] 11-09-2024 Episodic Substance-related disorders (17 sources) Nicotine dependence, cigarettes, uncomplicated; Translations: [History of drug abuse] Onset: 12-07-19 Resolved : 12-09-1912-09-2023 Chronic Superficial injury; contusion (1 source) Blister (nonthermal) of oral cavity, initial encounter Episodic Thyroid disorders (11 sources) Hypothyroidism; Translations: [Hypothyroidism, unspecified] Onset: 07-01-2007-01-2023 Chronic Past or Other Problems Problem Classification Problem Date Documented Da te Episodic/Chronic Abdominal pain (4 sources) Unspecified abdominal pain; Translations: [UNSPECIFIED ABDOMINAL PAIN] Onset: 12-17-2018 Episodic Cardiac dysrhythmias (7 sources) Palpitations; Translations: [Palpitations] Onset: 12-09-2009 12-09-2023 Episodic Conditions associated with dizziness or vertigo (7 sources) Dizziness and giddiness; Translations: [Dizziness and giddiness] Onset: 12-09-2009 12-09-2023 Episodic Hemorrhoids (7 sources) Bleeding external hemorrhoids; Translations: [Residual hemorrhoidal skin tags] Onset: 12-09-2023 12-09-2023 Episodic Mood disorders (7 sources) Mood disorders Onset: 12-09-2023 12-09-2023 Nutritional deficiencies (14 sources) Vitamin B deficiency; Translations: [Deficiency of other specified B group vitamins] Onset: 07-01-2023 07-01-2023 Episodic Other circulatory disease (7 sources) Orthostatic hypotension; Translations: [Orthostatic hypotension] Onset: 12-15-2009 12-09-2023 Episodic Other nutritional; endocrine; and metabolic disorders (1 source) Anorexia; Translations: [ANOREXIA] Onset: 12-23-2018 Episodic Other skin disorders (7 sources) Excessive sweating; Translations: [Generalized hyperhidrosis] Onset: 12-09-2009 Resolved: 12-09-2023 12-09-2023 Episodic Results Test Name Value Interpretation Reference Range Facility CBC AUTO DIFFon 12-05-2019 Basophils (Bld) [#/Vol] 0.1 103/ul Normal 0.0-0.1 [facility] Comment on above: Performed By: #### C BC #### [facility] [address] [place], [place] [phone] Loc [place]isa Basophils/100 WBC (Bld) 1.1 % Normal 0.2-2.0 [facility] Comment on above: Performed By: #### C BC #### [facility] [address] [place] [address] Loc [place] Eosinophils (Bld) [#/Vol] 0.2 103/ul Normal 0.0-0.7 [facility] Comment on above: Performed By: #### C BC #### [facility] [address] [place], [place] [phone] Loc [place] Eosinophils/100 WBC (Bld) 2.2 % Normal 0.9-7.0 [facility] Comment on above: Performed By: #### C BC #### [facility] [address] [place] [address] Loc [place]isa Erythrocyte distribution width (RBC) [Ratio] 15.1 % Critically high 11.0-15.0 [facility] Comment on above: Performed By: #### C BC #### [facility] [address] [place], [place] [phone] Loc [place] Hematocrit (Bld) [Volume fraction] 37.2 % Critically low 42.0-54.0 [facility] Comment on above: Performed By: #### C BC #### [facility] [address] [place] [address] Loc [place] Hemoglobin (Bld) [Mass/Vol] 12.4 g/dL Critically low 14.0-18.0 [facility] Comment on above: Performed By: #### C BC #### [facility] [address] [place] [address] Locannalise Lord IG # 0.04 10e3/ul Critically high 0.00-0.03 [facility] Comment on above: Performed By: #### C BC #### [facility] [address] [place] [address] [place] IG % 0.4 % Normal 0.0-0.5 [facility] Comment on above: Performed By: #### C BC #### [facility] [address] [place] [address] [place] Lymphocytes (Bld) [#/Vol] 2.9 103/ul Normal 1.2-3.8 [facility] Comment on above: Performed By: #### C BC #### [facility] [address] [place], [place] [phone] Loc Lord Lymphocytes/100 WBC (Bld) 31.6 % Normal 20.5-60.0 [facility] Comment on above: Performed By: #### C BC #### [facility] [address] [place], [place] [phone] Loc Lord MANUAL DIFF REQ NO Normal [facility] Comment on above: Performed By: #### C BC #### [facility] [address] [place], [place] [phone] Loc Lord MCH (RBC) [Entitic mass] 27.0 pg Normal 25.9-34.0 [facility] Comment on above: Performed By: #### C BC #### [facility] [address] [place], [place] [phone] Loc Lord MCHC (RBC) [Mass/Vol] 33.3 g/dL Normal 29.9-35.2 [facility] Comment on above: Performed By: #### C BC #### [facility] [address] [place], [place] [phone] Loc [place]isa MCV (RBC) [Entitic vol] 81.0 fL Normal 80.0-94.0 [facility] Comment on above: Performed By: #### C BC #### [facility] [address] [place], [place] [phone] Loc [place] Monocytes (Bld) [#/Vol] 0.6 103/ul Normal 0.3-0.8 [facility] Comment on above: Performed By: #### C BC #### [facility] [address] [place], [place] [phone] Loc [place] Monocytes/100 WBC (Bld) 7.0 % Normal 1.7-12.0 [facility] Comment on above: Performed By: #### C BC #### [facility] [address] [place], [place] [phone] Loc [place] Neutrophils (Bld) [#/Vol] 5.3 103/ul Normal 1.4-6.5 [facility] Comment on above: Performed By: #### C BC #### [facility] [address] [place], [place] [phone] Loc [place] Neutrophils/100 WBC (Bld) 57.7 % Normal 43.0-75.0 [facility] Comment on above: Performed By: #### C BC #### [facility] [address] [place], [place] [phone] Loc [place]isa Platelet mean volume (Bld) [Entitic vol] 9.7 fL Normal 9.5-13.5 [facility] Comment on above: Performed By: #### C BC #### [facility] [address] [place], [place] [phone] Loc [place]isa Platelets (Bld) [#/Vol] 241 103/ul Normal 150-450 [facility] Comment on above: Performed By: #### C BC #### [facility] [address] [place], [place] [phone] Loc [place]isa RBC (Bld) [#/Vol] 4.59 106/ul Critically low 4.70-6.10 [facility] Comment on above: Performed By: #### C BC #### [facility] [address] [place], [place] [address] Loc Lord WBC (Bld) [#/Vol] 9.2 103/ul Normal 4.0-11.0 [facility] Comment on above: Performed By: #### C BC #### [facility] [address] [place], [place] [address] Loc Lord CTA CHEST WO W CONon [...] hilar lymph nodes, likely reactive. Normal [facility] D-DIMERon 12-05-2019 D-DIMER COMMENTS SEE BELOW Normal [facility] [place] [facility] Comment on above: Result Comment: Incr eases [...] generalizd hospitalization. Performed By: #### D DIM ####[facility] [address] [place], [place] [address]Lsbqef Karen Fibrin D-dimer FEU IA (Bld) [Mass/Vol] 0.71 ug/mL Critically high 0.19-0.50 [facility] Comment on above: Result Comment: test repeated, critical value verified Performed By: #### D DIM ####[facility] [address] [place] [id number] Risa PROF 14(COMP METB)on 020 Albumin [Mass/Vol] 3.6 g/dL Normal 3.5-5.0 [facility] Comment on above: Performed By: #### C MP, TROP ####[facility] [address] [place], [place] [id number] Risa Albumin/Globulin [Mass ratio] 1.0 {ratio} Normal [facility] Comment on above: Performed By: #### C AMARILIS, TROP ####[facility] [address] [place], [place] [id number] Risa ALP [Catalytic activity/Vol] 84 U/L Normal 38-126 [facility] Comment on above: Performed By: #### C MP, TROP ####[facility] [address] [place], [place] [id number] Risa ALT [Catalytic activity/Vol] 25 U/L Normal 21-72 [facility] Comment on above: Performed By: #### C MP, TROP ####[facility] [address] [place] [phone] Risa Anion gap [Moles/Vol] 17.1 mmol/L Normal [facility] [place] Comment on above: Performed By: #### C MP, TROP ####[facility] [address] [place] [phone] Risa AST [Catalytic activity/Vol] 19 U/L Normal 17-59 [facility] Comment on above: Performed By: #### C MP, TROP ####[facility] [address] [place] [phone] Risa Bilirubin Ql (U) 0.5 mg/dL Normal 0.2-1.3 [facility] [place] [facility] Comment on above: Performed By: #### C MP, TROP ####[facility] [address] [place], [place] [address]Ymbvzz Risa Calcium [Mass/Vol] 8.8 mg/dL Normal 8.4-10.2 [facility] Comment on above: Performed By: #### C MP, TROP ####[facility] [address] [place] [phone] Risa Chloride [Moles/Vol] 104 mmol/L Normal 98-107 [facility] Comment on above: Performed By: #### C MP, TROP ####[facility] [address] Risa CO2 [Moles/Vol] 21.3 mmol/L Critically low 22.0-30.0 [facility] Comment on above: Performed By: #### C MP, TROP ####[facility] [address] [place], [place] [id number] Risa Creatinine [Mass/Vol] 1.02 mg/dL Normal 0.66-1.25 [facility] Comment on above: Performed By: #### C MP, TROP ####[facility] [address] [place] [address]Bdfikn Risa EGFR-AF TAJIK >60 Normal >=60 [facility] [place] [facility] Comment on above: Performed By: #### C MP, TROP ####[facility] [address] [place], [place] [address]Gerken Risa EGFR-NON AF TAJIK >60 Normal >=60 [facility] Comment on above: Performed By: #### C MP, TROP ####[facility] [address] [place] [address]Exugyu Risa Globulin (S) [Mass/Vol] 3.6 g/dL Normal [facility] Comment on above: Performed By: #### C MP, TROP ####[facility] [address] [place], [place] [id number] Risa Glucose [Mass/Vol] 99 mg/dL Normal 74-106 [facility] Comment on above: Performed By: #### C MP, TROP ####[facility] [address] [place], [place] [address]Qvpzko Risa Potassium [Moles/Vol] 3.4 mmol/L Normal 3.4-5.0 [facility] Comment on above: Performed By: #### C MP, TROP ####[facility] [address] [place], [place] [address]Glabsm Risa Protein [Mass/Vol] 7.2 g/dL Normal 6.1-8.2 [facility] Comment on above: Performed By: #### C MP, TROP ####[facility] [address] [place], [place] [address]Jtdbbk Risa Sodium [Moles/Vol] 139 mmol/L Normal 137-145 [facility] Comment on above: Performed By: #### C MP, TROP ####[facility] [address] [place], [place] [address]Lankcx Risa Urea nitrogen [Mass/Vol] 19.0 mg/dL Normal 9.0-20.0 [facility] Comment on above: Performed By: #### C MP, TROP ####[facility] [address] [place], [place] [address]Ddhmpb Risa Urea nitrogen/Creatinine [Mass ratio] 18.6 mg/mg Normal [facility] Comment on above: Performed By: #### C MP, TROP ####[facility] [address] [place] [address]Bnvgue Risa PROTIMEon 12-05-2019 INR Coag (PPP) [Relative time] 1.05 {INR} Normal [facility] Comment on above: Performed By: #### P T, PTT #### [facility] [address] [place], [place] [address] Loc Risa PT Coag (PPP) [Time] 10.9 s Normal 9.0-11.6 [facility] Comment on above: Performed By: #### P T, PTT #### [facility] [address] [place], [place] [address] Loc Risa PT Coag (PPP) [Time] PLEASE NOTE: NORMAL RANGE CHANGE 06-22-2014 DUE TO REAGENT LOT CHANGE Normal [facility] Comment on above: Performed By: #### P T, PTT #### [facility] [address] [place], [place] [address] Loc Lord PT Coag (PPP) [Time] SEE BELOW Normal [facility] Comment on above: Result Comment: ADDI RED INR: 2.0 - 3.0 CONDITIONS NOT LISTED BELOW 2.5 - 3.5 FOR PROSTHETIC HEART VALVE REPLACEMENT 2.5 - 3.5 RECURRENT THROMBOSIS Performed By: #### P T, PTT #### [facility] [address] [place] [address] Loc Lord PTTon 12-05-2019 aPTT Coag (Bld) [Time] 24.8 s Normal 22.3-36.2 [facility] Comment on above: Performed By: #### P T, PTT ####[facility] [address] [place] [address]Loc Lord aPTT Coag (Bld) [Time] PLEASE NOTE: NORM AL RANGE CHANGE 08-29-2015 DUE TO REAGENT LOT CHANGE Normal [facility] Comment on above: Performed By: #### P T, PTT ####[facility] [address] Risa TROPONIN - Ion 12-05-2019 Troponin I.cardiac [Mass/Vol] SEE BELOW Normal [facility] Comment on above: Result Comment: <0.0 34 ng/ml NEGATIVE 0.034-0.119 INDETERMINATE 0.120 AMI CUT OFF Performed By: #### C MP, TROP ####[facility] [address] [place] Troponin I.cardiac [Mass/Vol] ng/mL Normal <=0.034 [facility] Comment on above: Performed By: #### C MP, TROP ####[facility] [address] [place] [address]Loc Lord CBC AUTO DIFFon 12-04-2019 Basophils (Bld) [#/Vol] 0.1 103/ul Normal 0.0-0.1 [facility] Comment on above: Performed By: #### C BC #### [facility] [address] [place], [place] [address] Loc [place]isa Basophils/100 WBC (Bld) 1.2 % Normal 0.2-2.0 [facility] Comment on above: Performed By: #### C BC #### [facility] [address] [place], [place] [phone] Loc [place]isa Eosinophils (Bld) [#/Vol] 0.1 103/ul Normal 0.0-0.7 [facility] Comment on above: Performed By: #### C BC #### [facility] [address] [place], [place] [phone] Loc [place] Eosinophils/100 WBC (Bld) 1.1 % Normal 0.9-7.0 [facility] Comment on above: Performed By: #### C BC #### [facility] Laboratory [address] [place], [place] [id number] Loc Risa Erythrocyte distribution width (RBC) [Ratio] 14.8 % Normal 11.0-15.0 [facility] Comment on above: Performed By: #### C BC #### [facility] [address] [place], [place] [phone] Loc Risa Hematocrit (Bld) [Volume fraction] 42.7 % Normal 42.0-54.0 [facility] Comment on above: Performed By: #### C BC #### [facility] [address] [place], [place] [phone] Loc Risa Hemoglobin (Bld) [Mass/Vol] 14.8 g/dL Normal 14.0-18.0 [facility] Comment on above: Performed By: #### C BC #### [facility] [address] [place], [place] [phone] Loc Risa IG # 0.05 10e3/ul Critically high 0.00-0.03 [facility] Comment on above: Performed By: #### C BC #### [facility] [address] [place], [place] [phone] Loc Risa IG % 0.4 % Normal 0.0-0.5 [facility] Comment on above: Performed By: #### C BC #### [facility] [address] [address] Loc Risa Lymphocytes (Bld) [#/Vol] 2.7 103/ul Normal 1.2-3.8 [facility] Comment on above: Performed By: #### C BC #### [facility] [address] [id number] Loc Risa Lymphocytes/100 WBC (Bld) 23.1 % Normal 20.5-60.0 [facility] Comment on above: Performed By: #### C BC #### [facility] [address] [place], [place] [phone] Loc Risa MANUAL DIFF REQ NO Normal [facility] Comment on above: Performed By: #### C BC #### [facility] [address] [place], [place] [phone] Loc Risa MCH (RBC) [Entitic mass] 27.1 pg Normal 25.9-34.0 [facility] Comment on above: Performed By: #### C BC #### [facility] [address] [place], [place] [phone] Loc Risa MCHC (RBC) [Mass/Vol] 34.7 g/dL Normal 29.9-35.2 [facility] Comment on above: Performed By: #### C BC #### [facility] [address] [place], [place] [phone] Loc Risa MCV (RBC) [Entitic vol] 78.2 fL Critically low 80.0-94.0 [facility] Comment on above: Performed By: #### C BC #### [facility] [address] [place], [place] [phone] Loc Risa Monocytes (Bld) [#/Vol] 1.0 103/ul Critically high 0.3-0.8 [facility] Comment on above: Performed By: #### C BC #### [facility] [address] [place], [place] [phone] Loc Risa Monocytes/100 WBC (Bld) 8.4 % Normal 1.7-12.0 [facility] Comment on above: Performed By: #### C BC #### [facility] [address] [place], [place] [address] Loc Risa Neutrophils (Bld) [#/Vol] 7.6 103/ul Critically high 1.4-6.5 [facility] Comment on above: Performed By: #### C BC #### [facility] [address] [place], [place] [phone] Loc Risa Neutrophils/100 WBC (Bld) 65.8 % Normal 43.0-75.0 [facility] Comment on above: Performed By: #### C BC #### [facility] [address] [place] [address] Loc Risa Platelet mean volume (Bld) [Entitic vol] 9.3 fL Critically low 9.5-13.5 [facility] Comment on above: Performed By: #### C BC #### [facility] [address] [place], [place] [phone] Loc Risa Platelets (Bld) [#/Vol] 285 103/ul Normal 150-450 [facility] Comment on above: Performed By: #### C BC #### [facility] [address] [place] [address] Loc Risa RBC (Bld) [#/Vol] 5.46 106/ul Normal 4.70-6.10 [facility] Comment on above: Performed By: #### C BC #### [facility] [address] [place] [address] Loc Risa WBC (Bld) [#/Vol] 11.6 103/ul Critically high 4.0-11.0 [facility] Comment on above: Performed By: #### C BC #### [facility] [address] [place] [address] Loc Risa PROF CHEM 8 (BAS METB)on Anion gap [Moles/Vol] 20.8 mmol/L Normal [facility] [place] Comment on above: Performed By: #### T ROP, TSH, T4, BMP #### [facility] [address] [place] [address] Loc Risa Calcium [Mass/Vol] 9.9 mg/dL Normal 8.4-10.2 [facility] Comment on above: Performed By: #### T ROP, TSH, T4, BMP #### [facility] [address] [address] Loc Risa Chloride [Moles/Vol] 102 mmol/L Normal 98-107 [facility] Comment on above: Performed By: #### T ROP, TSH, T4, BMP #### [facility] [address] [address] Loc Risa CO2 [Moles/Vol] 18.4 mmol/L Critically low 22.0-30.0 [facility] Comment on above: Performed By: #### T ROP, TSH, T4, BMP #### [facility] [address] [place] [address] Loc Risa Creatinine [Mass/Vol] 1.50 mg/dL Critically high 0.66-1.25 [facility] Comment on above: Performed By: #### T ROP, TSH, T4, BMP #### [facility] [address] [place] [address] Loc Risa EGFR-AF TAJIK 59 mL/min/1.73m2 Critically low >=60 [facility] Comment on above: Performed By: #### T ROP, TSH, T4, BMP #### [facility] [address] [place] [address] Loc Risa EGFR-NON AF TAJIK 49 mL/min/1.73m2 Critically low >=60 [facility] Comment on above: Performed By: #### T ROP, TSH, T4, BMP #### [facility] [address] [place] [address] Loc Risa Glucose [Mass/Vol] 101 mg/dL Normal 74-106 [facility] Comment on above: Performed By: #### T ROP, TSH, T4, BMP #### [facility] [address] [address] Loc Risa Potassium [Moles/Vol] 3.2 mmol/L Critically low 3.4-5.0 [facility] Comment on above: Performed By: #### T ROP, TSH, T4, BMP #### [facility] [address] [phone] Loc Lord Sodium [Moles/Vol] 138 mmol/L Normal 137-145 [facility] Comment on above: Performed By: #### T ROP, TSH, T4, BMP #### [facility] [address] [phone] Locannalise Lord Urea nitrogen [Mass/Vol] 26.0 mg/dL Critically high 9.0-20.0 [facility] Comment on above: Performed By: #### T ROP, TSH, T4, BMP #### [facility] [address] [place], [place] [address] Loc Lord Urea nitrogen/Creatinine [Mass ratio] 17.3 mg/mg Normal [facility] Comment on above: Performed By: #### T ROP, TSH, T4, BMP #### [facility] [address] [place] [address] Locannalise Orren T4on 12-04-2019 T4 [Mass/Vol] 7.40 ug/dL Normal 5.53-11.00 [facility] Comment on above: Performed By: #### T ROP, TSH, T4, BMP #### [facility] [address] [place], [place] [address] Loc Lord TROPONIN - Ion 12-04-2019 Troponin I.cardiac [Mass/Vol] ng/mL Normal <=0.034 [facility] Comment on above: Performed By: #### T ROP, TSH, T4, BMP #### [facility] [address] [place], [place] [address] Loc Lord Troponin I.cardiac [Mass/Vol] SEE BELOW Normal [facility] Comment on above: Result Comment: <0.0 34 ng/ml NEGATIVE 0.034-0.119 INDETERMINATE 0.120 AMI CUT OFF Performed By: #### T ROP, TSH, T4, BMP #### [facility] [address] [place], [place] [address] Locannalise Orren TSHon 12-04-2019 TSH Qn SEE BELOW Normal [facility] Comment on above: Result Comment: <0.3 4 UIU/ml HYPERTHYROID 0.34-5.60 UIU/ml EUTHYROID >5.60 UIU/ml HYPOTHYROID Performed By: #### T ROP, TSH, T4, BMP #### [facility] [address] [phone] Loc Lord TSH Qn 11.107 uIU/mL Critically high 0.470-4.680 [facility] Comment on above: Performed By: #### T ROP, TSH, T4, BMP #### [facility] [address] [phone] Loc Lord XR CHEST 2 Von 12-04-2019 XR [...] COPD. No focal consolidative opacity. Normal [facility] XR CINERADIOGRAPHYon 019 XR CINERADIOGRAPHY [address] [place] [id number] Patient: OLE STEPHENS Exam Date: 12/17/2018 : 1965 Gender:M Ordering : DR CARLOS ENRIQUE MAGUIRE M.D. Admission #: [id number] Family : Order #: [id number] CLICK HERE TO VIEW EXAM RADIOLOGY REPORT [...] Gurvinder Hilliard M.D. on 12/17/2018 at 14:01 [facility] XR UPPER GI W AIR KUBon 12-03 XR UPPER GI W AIR KUB [address] [place] [address] Patient: OLE STEPHENS Exam Date: 12/17/2018 : 1965 Gender:M Ordering : DR CARLOS ENRIQUE MAGUIRE M.D. Admission #: [id number] Family : Order #: [id number] CLICK HERE TO VIEW EXAM RADIOLOGY REPORT [...] Gurvinder Hilliard M.D. on 12/17/2018 at 14:01 [facility] Vital Signs Date Time Vital Sign Value Performing Clinician Facility 11-09-2024 14:00-0500 Body height 175.3 cm Mirna Kong [employer] Work Phone: [facility] 11-09-2024 14:00-0500 Body mass index (BMI) [Ratio] 17.66 kg/m2 Mirna Kong [employer] Work Phone: [facility] 11-09-2024 14:00-0500 Body weight 54.25 kg Mirna Kong [employer] Work Phone: [facility] 11-09-2024 14:00-0500 Diastolic blood pressure 72 mm[Hg] Mirna Kong [employer] Work Phone: [facility] 11-09-2024 14:00-0500 Heart rate 67 /min Miran Kong [employer] Work Phone: [facility] 11-09-2024 14:00-0500 Respiratory rate 17 /min Mirna Kong [employer] Work Phone: [facility] 11-09-2024 14:00-0500 SaO2% (BldA) [Mass fraction] 99 % Mirna Kong [employer] Work Phone: [facility] 11-09-2024 14:00-0500 Systolic blood pressure 110 mm[Hg] Mirna Kong [employer] Work Phone: [facility] 09-29-2024 13:06-0500 Body height 175.3 cm Mirna Kong [employer] Work Phone: [facility] 09-29-2024 13:06-0500 Body mass index (BMI) [Ratio] 17.43 kg/m2 Mirna Kong [employer] Work Phone: [facility] 09-29-2024 13:06-0500 Body weight 53.52 kg Mirna Kong [employer] Work Phone: [facility] 09-29-2024 13:06-0500 Diastolic blood pressure 82 mm[Hg] Mirna Kong [employer] Work Phone: [facility] 09-29-2024 13:06-0500 Heart rate 56 /min Mirna Kong [employer] Work Phone: [facility] 09-29-2024 13:06-0500 SaO2% (BldA) [Mass fraction] 97 % Mirna Kong [employer] Work Phone: [facility] 09-29-2024 13:06-0500 Systolic blood pressure 118 mm[Hg] Mirna Kong [employer] Work Phone: [facility] 08-04-2023 13:25-0400 Body height 180.34 cm Josephine Castillo Other [facility] Other 08-04-2023 13:25-0400 Body mass index (BMI) [Ratio] 18.6 kg/m2 Josephine Castillo Other [facility] Other 08-04-2023 13:25-0400 Body temperature 97.3 [degF] Josephine Garzadeedee Other [facility] Other 08-04-2023 13:25-0400 Body weight 60.51 kg Josephine Leeedgar Other [facility] Other 08-04-2023 13:25-0400 Diastolic blood pressure 87 mm[Hg] Josephine Anna Other [facility] Other 08-04-2023 13:25-0400 Respiratory rate 18 /min Josephine Anna Other [facility] Other 08-04-2023 13:25-0400 SaO2% (BldA) [Mass fraction] 96 % Josephine Anna Other [facility] Other 08-04-2023 13:25-0400 Systolic blood pressure 128 mm[Hg] Josephine Anna Other [facility] Other Encounters Encounter Date Encounter Type Care Provider Facility Start: 11-09-2024 End: 11-09-2024 [employer] [employer] flow[facility] Mirna Kong [employer] Work Phone: [facility] Start: 11-09-2024 End: 11-09-2024 Bamboo flowsheet Mirna Kong [employer] Work Phone: [facility] Start: 11-09-2024 End: 11-09-2024 Office outpatient visit 25 minutes Mirna Kong [employer] Work Phone: [facility] Comment on above: Anxiety (Primary Dx) ; Severe back pain; Reactive depression (situational) (CMS/HCC); Mixed hyperlipidemia (CMS/HCC); Hypothyroidism, unspecified (CMS/HCC); Acute strain of neck muscle, initial encounter; Acquired hypothyroidism (CMS/HCC); Anorexia; Anxiety disorder due to known physiological condition; Bipolar affective disorder, current episode hypomanic (CMS/HCC); Unspecified convulsions (CMS/HCC); Bipolar disorder, in partial remission, most recent episode depressed (CMS/HCC); Other psychoactive substance abuse, in remission (CMS/HCC); Bipolar disorder, unspecified (CMS/HCC); Bipolar disorder, in partial remission, most recent episode mixed (CMS/HCC) Start: 11-09-2024 End: 11-09-2024 ambulatory MIRNA KONG Not Available Start: 10-04-2024 ambulatory Benjy Carbajal acility:[facility] Start: 10-03-2024 End: 10-14-2024 Telephone encounter Marsha Schofield MA [facility] Start: 09-29-2024 End: 09-29-2024 Bamboo flowsheet Mirna Kong [employer] Work Phone: [facility] Start: 09-29-2024 End: 09-29-2024 Bamboo flowsheet Mirna Kong [employer] Work Phone: [facility] Start: 09-29-2024 End: 09-29-2024 Office outpatient visit 25 minutes Mirna Kong [employer] Work Phone: [facility] Comment on above: Hospital discharge f ollow-up (Primary Dx); Degenerative disc disease, thoracic; Severe back pain; Muscle spasm; Reactive depression (situational) (CMS/HCC); Situational mixed anxiety and depressive disorder (CMS/HCC); Weight loss Start: 09-29-2024 End: 09-29-2024 ambulatory MIRNA KONG Not Available Start: 05-11-2024 End: 05-11-2024 ambulatory 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 Not Available Start: 02-04-2024 End: 02-04-2024 ambulatory CARLOS ENRIQUE MAGUIRE Not Available Start: 01-25-2024 End: 01-25-2024 ambulatory CARLOS ENRIQUE MAGUIRE Not Available Start: 01-07-2024 End: 01-07-2024 ambulatory CARLOS ENRIQUE MAGUIRE Not Available Start: 12-09-2023 End: 12-09-2023 ambulatory RISA CANADA Not Available Start: 08-04-2023 End: 08-04-2023 ambulatory Josephine Castillo Other [employer] Other Start: 08-04-2023 Office outpatient ne w 20 minutes Josephine Castillo [facility] [place] Start: 12-05-2019 End: 12-05-2019 Patient encounter procedure CARLOS ENRIQUE MAGUIRE Facility:[facility] Start: 12-04-2019 End: 12-04-2019 Patient encounter procedure CARLOS ENRIQUE MAGUIRE Facility:[facility] Start: 12-17-2018 End: 12-18-2018 Patient encounter procedure CARLOS ENRIQUE MAGUIRE Facility:[facility] Plan of Treatment Date Care Activity Detail Author Start: 02-08-2025 End: 02-08-2025 Patient encounter procedure 02/08/2025 1:00 PM EDT Office Visit [facility] [address] [place] [address] Mirna Kong, [employer] [address] [place] [address] [facility] Start: 12-08-2024 Medicare Annual Well ness (AWV) Medicare Annual Wellness (AWV) [facility] Start: 12-08-2024 Screening for malign ant neoplasm of colon Colorectal Cancer Screening [facility] Comment on above: Postponed from 10/16 (Patient Refused) Start: 11-09-2024 End: 11-09-2024 Patient encounter procedure 11/09/2024 2:00 PM EST Office Visit [facility] [address] [place] [address] Mirna Kong, [employer] [address] [place] [address] Arrived [facility] Comment on above: Arrived Start: 10-27-2024 End: 10-27-2024 Patient encounter procedure 10/27/2024 1:30 PM EST Office Visit [facility] [address] [place] [address] Mirna Kong, [employer] [address] [place] [address] [facility] Start: 09-29-2024 End: 09-29-2024 Patient encounter procedure 09/29/2024 1:00 PM EST Office Visit [facility] [address] [place] [address] Mirna Knog, [employer] [address] [place] [address] Arrived [facility] Comment on above: Arrived Start: 06-05-2024 Influenza vaccination Influenza Vacc ine (#1) [facility] Start: 1965 Screening for malign ant neoplasm of colon [facility] Immunizations Immunization Date Immunization Notes Care Provider [facility] 06-22-2020 influenza, injectabl e, quadrivalent, preservative free Mirna Kong [employer] Work Phone: [facility] 06-22-2020 influenza virus vacc ine, unspecified formulation Mirna Kong [employer] Work Phone: [facility] 07-08-2019 influenza, injectabl e, quadrivalent, contains preservative Mirna Kong [employer] Work Phone: [facility] 06-22-2017 seasonal influenza, intradermal, preservative free Mirna Kong [employer] Work Phone: [facility] 07-06-2015 seasonal influenza, intradermal, preservative free Mirna Kong [employer] Work Phone: [facility] 07-07-2014 seasonal influenza, intradermal, preservative free Mirna Kong [employer] Work Phone: [facility] Payers Date Payer Category Payer Medicare (Managed Care) [facility] [id number] 2023 Medicare [id number] 2023 Self-pay 1965 Unknown [id number] [id number] 1965 Unknown [id number] [id number]. 593 1966 Unknown [id number] [id number]. 593 1965 Unknown [id number] [id number]. 1259 1966 Unknown [id number] [id number]. 1259 1965 Unknown [id number] [id number]. 9 1966 Unknown [id number] [id number]. 1259 1966 Unknown [id number] [id number]. 9 1966 Unknown [id number] [id number]. 9 1966 Unknown [id number]. 1259 1958 Medicaid [id number] 1958 Medicare [id number] Unknown [id number] 531 Social History Date Type Detail Facility Unknown if ever smoked [facility] Other Start: 12-09-2023 End: 05-11-2024 Sex Assigned At [employer] Other Start: 12-09-2023 End: 11-09-2024 Tobacco smoking status NHIS Smokes tobacco daily [facility] History of tobacco use Cigarette Smoker [facility] Start: 12-09-2023 End: 11-09-2024 Tobacco use and exposure Smokeless tobacco non-user [facility] Start: 05-11-2024 End: 11-09-2024 Alcoholic beverage intake Lifetime non-drinker (finding) [facility] Start: 12-09-2023 End: 05-11-2024 History of Social function [facility] Start: 12-09-2023 Alcohol Comment Caffeine intak e : chocolate [facility] Start: 1965 Sex assigned at Not on file N [facility] History of Present illness Narrative 11-09-2024 Mirna Kong, JERRY - 11/09/2024 2:00 PM EST Note Date & Type Note Facility 11-09-2024 History of Presen t illness Narrative Images from the original note were not included. Subjective Patient ID: Ole Stephens is a 59 y.o. male who presents for medication F/U Ole presents today for medication F/U. Current Outpatient Medications on File Prior to Visit Medication Sig Dispense Refill ALPRAZolam (Xanax) 0.25 MG tablet Take 1 tablet (0.25 mg) by mouth 3 (three) times a day as needed for anxiety for up to 10 days 30 tablet 0 atorvastatin (Lipitor) 20 MG tablet Take 1 tablet (20 mg) by mouth Daily 100 tablet 3 buPROPion XL (Wellbutrin XL) 150 MG 24 hr tablet Take 1 tablet (150 mg) by mouth in the morning. Do not crush, chew, or split.. 30 tablet 1 busPIRone (Buspar) 5 MG tablet Take 5 mg by mouth in the morning and 5 mg before bedtime. diclofenac (Voltaren) 75 MG EC tablet Take 1 tablet (75 mg) by mouth in the morning and 1 tablet (75 mg) before bedtime. 60 tablet 1 levothyroxine (Synthroid, Levoxyl) 100 MCG tablet Take 1 tablet (100 mcg) by mouth in the morning. Take before meals. 100 tablet 3 LORazepam (Ativan) 0.5 MG tablet Take 0.5 mg by mouth Daily as needed for anxiety mirtazapine (Remeron) 30 MG tablet Take 30 mg by mouth at bedtime OLANZapine (ZyPREXA) 5 MG tablet Take 1 tablet by mouth at bedtime orphenadrine (Norflex) 100 MG 12 hr tablet Take 1 tablet (100 mg) by mouth 2 (two) times a day as needed for muscle spasms Do not crush, chew, or split. 60 tablet 1 sertraline (Zoloft) 100 MG tablet TAKE 2 TABLETS BY MOUTH ONCE DAILY tiZANidine (Zanaflex) 4 MG tablet Take 1 tablet (4 mg) by mouth in the evening 20 tablet 1 Vraylar 4.5 MG capsule Take 1 capsule by mouth Daily No current facility-administered medications on file prior to visit. I have reviewed and reconciled the history and medication list with the patient today. Allergies Allergen Reactions Penicillins Swelling Other Reaction(s): Unknown localized to the site of injection Social History Tobacco Use Smoking status: Every Day Current packs/day: 1.00 Types: Cigarettes Smokeless tobacco: Never Vaping Use Vaping status: Unknown Substance Use Topics Alcohol use: Never Comment: Caffeine intake : chocolate Drug use: Never Family History Problem Relation Name Age of Onset Hypertension Father Coronary artery disease Father Stroke Father Hyperlipidemia Father Past Medical History: Diagnosis Date Allergies Anxiety Bipolar disorder (CMS/HCC) Chest discomfort Closed head injury 10/2016 Fall Degenerative disease of basal ganglia (CMS/HCC) Diaphoresis Dysfunction of eustachian tube Esophageal reflux Gastritis and gastroduodenitis Hyperlipidemia (CMS/HCC) Hypothyroidism (CMS/HCC) Loss of appetite Seizure (CMS/HCC) Vitamin B 12 deficiency Past Surgical History: Procedure Laterality Date HERNIA REPAIR 1981 Visit Vitals Smoking Status Every Day Review of Systems Constitutional: Positive for fatigue. HENT: Negative. Eyes: Negative. Cardiovascular: Negative. Genitourinary: Negative. Musculoskeletal: Positive for arthralgias, back pain and myalgias. Skin: Negative. Neurological: Negative. Psychiatric/Behavioral: The patient is nervous/anxious. Hematological: Negative. Endocrine: Negative. Allergic/Immunologic: Negative. Objective Physical Exam Vitals reviewed. Constitutional: Appearance: Normal appearance. HENT: Head: Normocephalic and atraumatic. Right Ear: External ear normal. Left Ear: External ear normal. Nose: Nose normal. Eyes: Conjunctiva/sclera: Conjunctivae normal. Cardiovascular: Rate and Rhythm: Normal rate and regular rhythm. Heart sounds: Normal heart sounds. Pulmonary: Effort: Pulmonary effort is normal. Breath sounds: Normal breath sounds. Abdominal: Palpations: Abdomen is soft. Musculoskeletal: General: Normal range of motion. Cervical back: Normal range of motion. Skin: General: Skin is warm and dry. Neurological: General: No focal deficit present. Mental Status: He is alert and oriented to person, place, and time. Psychiatric: Mood and Affect: Mood normal. Thought Content: Thought content normal. Judgment: Judgment normal. Assessment/Plan 1. Severe back pain He states that his back pain is controlled with the use of voltaren. He denies any side effects. He will continue this medication without changes. - diclofenac (Voltaren) 75 MG EC tablet; Take 1 tablet (75 mg) by mouth in the morning and 1 tablet (75 mg) before bedtime. Dispense: 60 tablet; Refill: 2 2. Reactive depression (situational) (CMS/HCC) He continues to report feeling anxious. The buspirone is increased today to 10 mg TID. He continues on wellbutrin xl as ordered. He continues on mirtazapine as ordered. He continues on zoloft as ordered. - busPIRone (Buspar) 5 MG tablet; Take 2 tablets (10 mg) by mouth in the morning and 2 tablets (10 mg) in the evening and 2 tablets (10 mg) before bedtime. Dispense: 180 tablet; Refill: 0 - buPROPion XL (Wellbutrin XL) 150 MG 24 hr tablet; Take 1 tablet (150 mg) by mouth in the morning. Do not crush, chew, or split.. Dispense: 30 tablet; Refill: 2 - mirtazapine (Remeron) 30 MG tablet; Take 1 tablet (30 mg) by mouth at bedtime Dispense: 30 tablet; Refill: 2 - sertraline (Zoloft) 100 MG tablet; Take 2 tablets (200 mg) by mouth at bedtime Dispense: 60 tablet; Refill: 2 3. Mixed hyperlipidemia (CMS/HCC) Stable. 12/09/23 CHOLESTEROL, TOTAL <200 mg/dL 263 High HDL CHOLESTEROL > OR = 40 mg/dL 34 Low TRIGLYCERIDES <150 mg/dL 285 High LDL-CHOLESTEROL mg/dL (calc) 178 High - atorvastatin (Lipitor) 20 MG tablet; Take 1 tablet (20 mg) by mouth Daily Dispense: 30 tablet; Refill: 2 4. Hypothyroidism, unspecified (CMS/HCC) Stable. 12/09/23 TSH W/REFLEX TO FT4 0.40 - 4.50 mIU/L 6.28 High - levothyroxine (Synthroid, Levoxyl) 100 MCG tablet; Take 1 tablet (100 mcg) by mouth in the morning. Take before meals. Dispense: 100 tablet; Refill: 3 5. Acute strain of neck muscle, initial encounter The pt will continue tizanidine as ordered. The norflex previously ordered has been discontinued dt cost. - tiZANidine (Zanaflex) 4 MG tablet; Take 1 tablet (4 mg) by mouth every 8 (eight) hours if needed for muscle spasms Dispense: 90 tablet; Refill: 0 6. Anxiety (Primary) Stable. - LORazepam (Ativan) 0.5 MG tablet; Take 1 tablet (0.5 mg) by mouth Daily as needed for anxiety Dispense: 30 tablet; Refill: 2 7. Acquired hypothyroidism (CMS/HCC) stable 8. Anorexia Current wt at 119 lbs. 9. Anxiety disorder due to known physiological condition 10. Bipolar affective disorder, current episode hypomanic (CMS/HCC) Zoloft, Bupropion xl, buspirone continue. 11. Unspecified convulsions (CMS/HCC) No seizure activity reported. Stable. 12. Bipolar disorder, in partial remission, most recent episode depressed (CMS/HCC) Buspar has been increased. 13. Other psychoactive substance abuse, in remission (CMS/HCC) Stable. 14. Bipolar disorder, unspecified (CMS/HCC) 15. Bipolar disorder, in partial remission, most recent episode mixed (CMS/HCC) No follow-ups on file. documented in this encounter [facility] Instructions 11-09-2024 Patient Instructions Note Date & Type Note Facility 11-09-2024 Instructions Mirna Kong NP - 11/09/2024 2:00 PM EST Refills sent today. documented in this encounter [facility] Telephone encounter Note 10-14-2024 Telephone Encounter - Mirna Kong NP - 10/14/2024 11:35 AM EST Note Date & Type Note Facility 10-14-2024 Telephone encount er Note Please call the pt and notify that orthopedics recommended pain management. If he is ok with going to pain management please send the referral. [facility] Note 10-14-2024 Telephone Encounter - Mirna Kong NP - 10/14/2024 11:35 AM ESTTelephone Encounter - Marsha Schofield MA - 10/03/2024 9:27 AM EST Note Date & Type Note Facility 10-14-2024 Miscellaneous Notes Formattin g of this note might be different from the original. Please call the pt and notify that orthopedics recommended pain management. If he is ok with going to pain management please send the referral. Ortho office states they are denying the referral please refer to [facility] per ortho documented in this encounter [facility] Telephone encounter Note 10-03-2024 Telephone Encounter - Marsha Schofield MA - 10/03/2024 9:27 AM EST Note Date & Type Note Facility 10-03-2024 Telephone encount er Note Ortho office states they are denying the referral please refer to [facility] per ortho [facility] History of Present illness Narrative 09-29-2024 Mirna Kong NP - 09/29/2024 1:00 PM EST Note Date & Type Note Facility 09-29-2024 History of Presen t illness Narrative Images from the original note were not included. Subjective Patient ID: Ole Stephens is a 58 y.o. male who presents for Back Pain. Went to Er on Thursday,this was for the back pain he was given pain med and a muscle relaxer, they do help him with the pain Pt did try heat ice and this does not work for him Pt is also losing weight, pt is only eating one time a day pt is having microwave dinners like fish he stated No problems with going to the bathroom Back Pain This is a new problem. The current episode started in the past 7 days. Current Outpatient Medications on File Prior to Visit Medication Sig Dispense Refill diclofenac (Voltaren) 75 MG EC tablet Take 75 mg by mouth 2 (two) times a day as needed LORazepam (Ativan) 0.5 MG tablet Take 0.5 mg by mouth Daily as needed for anxiety orphenadrine (Norflex) 100 MG 12 hr tablet TAKE 1 TABLET BY MOUTH TWICE DAILY NEEDED FOR MUSCLE SPASM Vraylar 4.5 MG capsule Take 1 capsule by mouth Daily atorvastatin (Lipitor) 20 MG tablet Take 1 tablet (20 mg) by mouth Daily 100 tablet 3 busPIRone (Buspar) 5 MG tablet Take 5 mg by mouth in the morning and 5 mg before bedtime. levothyroxine (Synthroid, Levoxyl) 100 MCG tablet Take 1 tablet (100 mcg) by mouth in the morning. Take before meals. 100 tablet 3 mirtazapine (Remeron) 30 MG tablet Take 30 mg by mouth at bedtime OLANZapine (ZyPREXA) 5 MG tablet Take 1 tablet by mouth at bedtime sertraline (Zoloft) 100 MG tablet TAKE 2 TABLETS BY MOUTH ONCE DAILY tiZANidine (Zanaflex) 4 MG tablet Take 1 tablet (4 mg) by mouth in the evening 20 tablet 1 [DISCONTINUED] Cariprazine HCl (Vraylar) 3 MG capsule Take 3 mg by mouth Daily No current facility-administered medications on file prior to visit. I have reviewed and reconciled the history and medication list with the patient today. Allergies Allergen Reactions Penicillins Swelling Other Reaction(s): Unknown localized to the site of injection Social History Tobacco Use Smoking status: Every Day Current packs/day: 1.00 Types: Cigarettes Smokeless tobacco: Never Substance Use Topics Alcohol use: Never Comment: Caffeine intake : chocolate Drug use: Never Family History Problem Relation Name Age of Onset Hypertension Father Coronary artery disease Father Stroke Father Hyperlipidemia Father Past Medical History: Diagnosis Date Allergies Anxiety Bipolar disorder (CMS/HCC) Chest discomfort Closed head injury 10/2016 Fall Degenerative disease of basal ganglia (CMS/HCC) Diaphoresis Dysfunction of eustachian tube Esophageal reflux Gastritis and gastroduodenitis Hyperlipidemia (CMS/HCC) Hypothyroidism (CMS/HCC) Loss of appetite Seizure (CMS/HCC) Vitamin B 12 deficiency Past Surgical History: Procedure Laterality Date HERNIA REPAIR 1981 Visit Vitals Smoking Status Every Day Review of Systems Constitutional: Positive for activity change. HENT: Negative. Eyes: Negative. Respiratory: Negative. Cardiovascular: Negative. Gastrointestinal: Negative. Genitourinary: Negative. Musculoskeletal: Positive for arthralgias, back pain and myalgias. Skin: Negative. Neurological: Negative. Psychiatric/Behavioral: The patient is nervous/anxious. Hematological: Negative. Endocrine: Negative. Allergic/Immunologic: Negative. Objective Physical Exam Vitals reviewed. Constitutional: Appearance: Normal appearance. HENT: Head: Normocephalic and atraumatic. Right Ear: External ear normal. Left Ear: External ear normal. Nose: Nose normal. Mouth/Throat: Mouth: Mucous membranes are moist. Pharynx: Oropharynx is clear. Eyes: Extraocular Movements: Extraocular movements intact. Pupils: Pupils are equal, round, and reactive to light. Cardiovascular: Rate and Rhythm: Normal rate and regular rhythm. Heart sounds: Normal heart sounds. Pulmonary: Effort: Pulmonary effort is normal. Breath sounds: Normal breath sounds. Abdominal: Palpations: Abdomen is soft. Musculoskeletal: General: Swelling and tenderness present. Cervical back: Normal range of motion and neck supple. Comments: Thoracic paraspinal muscle spasms Skin: General: Skin is warm and dry. Neurological: General: No focal deficit present. Mental Status: He is alert and oriented to person, place, and time. Psychiatric: Mood and Affect: Mood normal. Behavior: Behavior normal. Thought Content: Thought content normal. Judgment: Judgment normal. Assessment/Plan 1. Hospital discharge follow-up (Primary) He reports that his back pain has worsened and he would like to go to orthopedics. 2. Degenerative disc disease, thoracic - Ambulatory referral to Orthopaedic Surgery; Future 3. Severe back pain He continues on voltaren as ordered. Stable. - diclofenac (Voltaren) 75 MG EC tablet; Take 1 tablet (75 mg) by mouth in the morning and 1 tablet (75 mg) before bedtime. Dispense: 60 tablet; Refill: 1 4. Muscle spasm Norflex continues. Stable. - orphenadrine (Norflex) 100 MG 12 hr tablet; Take 1 tablet (100 mg) by mouth 2 (two) times a day as needed for muscle spasms Do not crush, chew, or split. Dispense: 60 tablet; Refill: 1 5. Reactive depression (situational) (CMS/HCC) Discussed diagnosis with the pt today. Wellburin xl is ordered today. Follow up 1 month. - buPROPion XL (Wellbutrin XL) 150 MG 24 hr tablet; Take 1 tablet (150 mg) by mouth in the morning. Do not crush, chew, or split.. Dispense: 30 tablet; Refill: 1 6. Situational mixed anxiety and depressive disorder (CMS/HCC) The pt reports increasing anxiety and depression. Alprazolam ordered today x 10 days. He is encouraged to continue the wellbutrin xl, most common side effects are discussed. Follow up in 1 month. - ALPRAZolam (Xanax) 0.25 MG tablet; Take 1 tablet (0.25 mg) by mouth 3 (three) times a day as needed for anxiety for up to 10 days Dispense: 30 tablet; Refill: 0 7. Weight loss Encouraged to start boost as directed. No follow-ups on file. documented in this encounter [facility] Instructions 09-29-2024 Patient Instructions Note Date & Type Note Facility 09-29-2024 Instructions Mirna Kong NP - 09/29/2024 1:00 PM EST Norflex continues. Voltaren continues. Wellbutrin xl is started. Alprazolam is started x 10 days only. documented in this encounter [facility] Evaluation note 08-04-2023 Note Date & Type [...] area. Pt understood agreed to treatment plan. 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) Weight loss Loss of weight documented in this encounter [facility] Evaluation note Note Date & Type Note Facility Evaluation note Diagnosis Anxiety- Primary Anxiety state, unspecified Severe back pain Reactive depression (situational) (CMS/HCC) Dysthymic disorder Mixed hyperlipidemia (CMS/HCC) Mixed hyperlipidemia Hypothyroidism, unspecified (CMS/HCC) Acute strain of neck muscle, initial encounter Acquired hypothyroidism (CMS/HCC) Unspecified hypothyroidism Anorexia Anxiety disorder due to known physiological condition Bipolar affective disorder, current episode hypomanic (CMS/HCC) Unspecified convulsions (CMS/HCC) Bipolar disorder, in partial remission, most recent episode depressed (CMS/HCC) Other psychoactive substance abuse, in remission (CMS/HCC) Bipolar disorder, unspecified (CMS/HCC) Bipolar disorder, unspecified Bipolar disorder, in partial remission, most recent episode mixed (CMS/HCC) documented in this encounter [facility] Summary Purpose Family History No Family History Records FoundNo Family History Records FoundNo Family History Records Found Advance Directives No Advanced Directives Records FoundNo Advanced Directives Records FoundNo Advanced Directives Records Found Additional Source Comments (unrecognized sect ion and content) No Status Records FoundNo Status Records FoundNo Status Records Found INFORMATION SOURCE (unrecogn ized section and content) DATE CREATED AUTHOR 12/07/2019 [facility] p[facility] DATE CREATED AUTHOR AUTHOR'S ORGANIZ ATION 10/06/2024 [facility] DATE CREATED AUTHOR AUTHOR'S ORGANIZ ATION 11/11/2024 [facility] EPIC REASON FOR VISIT (unrecogniz ed section and content) Reason Comments Back Pain Care Teams (unrecognized sec tion and content) Cooler Operator Relationship Specialty Start Date End Date Carlos Enrique Maguire MD [address] [facility] [address] [place] [address] PCP - ACO Reach 02/26/23 Carlos Enrique Maguire MD [address] [place] [address] PCP - General Internal Medicine 02/10/23 Cooler Operator Relationship Specialty Start Date End Date Carlos Enrique Maguire MD [address] [place] [address] PCP - ACO Reach 02/26/23 Carlos Enrique Maguire MD [address] [place] [address] PCP - General Internal Medicine 02/10/23 Cooler Operator Relationship Specialty Start Date End Date Carlos Enrique Maguire MD [address] [place] [address] PCP - ACO Reach 02/26/23 Carlos Enrique Maguire MD [address] [place] [address] PCP - General Internal Medicine 02/10/23 Cooler Operator Relationship Specialty Start Date End Date Carlos Enrique Maguire MD [address] [place] [address] PCP - ACO Reach 02/26/23 Carlos Enrique Maguire MD [address] [place] [address] PCP - General Internal Medicine 02/10/23 Cooler Operator Relationship Specialty Start Date End Date Carlos Enrique Maguire MD [address] [place] [address] PCP - ACO Reach 02/26/23 Carlos Enrique Maguire MD [address] [place] [address] PCP - General Internal Medicine 02/10/23 FOR RECORDS PERTAINING TO PATIENTS WHO ARE [...] BE BASED ON THE PRIMARY CLINICAL RECORDS. [facility] [employer] [facility]. provides no warranty or guarantee of the accuracy or completeness of information in this document.
== END 2024-11-28 13:12 | disposition left against medical advice (07) ==
PROVIDERS: Emergency Provider Emergency Medicine; PCP Internal Medicine
DX: Z53.21 Procedure and treatment not carried out due to patient leaving prior to being seen by health care provider (principal)

== ENCOUNTER 2025-04-17 13:55 | Emergency (ER) | payer OTHER, MEDICAID, SELFPAY ==
[2025-04-17 14:07] VITALS: BP 112/69; PULSE 53; TEMP 36.7; O2SAT 100; BMI 17.6
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
[2025-04-17] MEDS: BACITRACIN 0.9 GM PACKET 1 PACKET TOPICAL (14:17)
== END 2025-04-17 14:24 | disposition home or self-care (01) ==
PROVIDERS: Emergency Provider Emergency Medicine; PCP Internal Medicine
DX: T22.211A Burn of second degree of right forearm, initial encounter (principal); X08.8XXA Exposure to other specified smoke, fire and flames, initial encounter; F17.210 Nicotine dependence, cigarettes, uncomplicated
CPT/HCPCS: 99281

== ENCOUNTER 2025-06-24 03:07 | Emergency (ER) | payer BC, SELFPAY ==
--- OUTSIDE RECORDS SUMMARY | 2025-06-15 16:00 | XMS_ITS | Encounter Summary ---
Author Organization [facility] Address [address] [place] [address] Care Team Providers Care Post Acute Care Nurse Practitioner Name Role Phone Carlos Enrique Maguire MD Primary Care Provider [phone] Reason for Referral * Consultation (Routine) - Authorized Specialty Diagnoses / Procedures Referred By Contac t Referred To Contact General Surgery Diagnoses Weight loss Gastric pain Nausea and vomiting, unspecified vomiting type Dysphagia, unspecified type Procedures [place] OFFICE/OUTPATIENT [facility] 60 MINUTES Munira Freedman NP 112 [facility] [address] [place] [address] Phone: tel: fax: Gustavo Castro DO [address] [place] [id number] Phone: tel: fax: Referral ID Status Reason Start Date Expiration Date Visits Requested Visits Authorized [id number] Authorized Specialty Services Required 06/15/2025 12/12/2025 1 1 Encounter Details Date Type Department Care Team (Late st Contact Info) Description 06/15/2025 4:00 PM EDT Office Visit HENNY Navarro [address] [facility] [address] [place] [address] Munira Freedman NP 112 [facility] [address] [place], [place] [id number] Weight loss (Primary Dx); Gastric pain; Nausea and vomiting, unspecified vomiting type; Dysphagia, unspecified type; Pericardial effusion (HHS-HCC); Skin infection Social History Tobacco Use Types Packs/Day Years Used Date Smoking Tobacco: Every Day Cigarettes Smokeless Tobacco: Never Tobacco Cessation:Ready to Q uit: No; Counseling Given: Yes Alcohol Use Standard Drinks/Week Comments Never 0 (1 standard drink = 0.6 oz pur e alcohol) Caffeine intake : chocolate PHQ-2 Answer Date Recorded Patient Health Questionnaire-2 Score 2 06/15/2025 Sex and Gender Information Value Date Recorded Sex Assigned at Not on file Legal Sex Male 6:37 PM EDT Gender Identity Not on file Sexual Orientation Not on file documented as of this encounter Last Filed Vital Signs Vital Sign Reading Time Taken Comments Blood Pressure 130/68 06/15/2025 3:49 PM EDT Pulse 84 06/15/2025 3:49 PM EDT Temperature - - Respiratory Rate 17 06/15/2025 3:49 PM EDT Oxygen Saturation 96% 06/15/2025 3:49 PM EDT Inhaled Oxygen Concentration - - Weight 51.7 kg (114 lb) 06/15/2025 3:49 PM EDT Height 175.3 cm (5' 9 ) 06/15/2025 3:49 PM EDT Body Mass Index 16.83 06/15/2025 3:49 PM EDT documented in this encounter Functional Status * Over the past 2 weeks, how often have you been bothered by any of the following problems? Question Answer Date of Assessment Author Little interest or pleasure in doing things Several days 06/15/2025 3:48 PM EDT MORRIS VEGA Feeling down, depressed, or hopeless Several days 06/05 3:48 PM EDT MORRIS VEGA Patient Health Questionnaire-2 Score 2 06/05 3:48 PM EDT MORRIS VEGA * If you checked off any problems on this questionnaire so far, Question Answer Date of Assessment Author How difficult have these problems made it for you to do your work, take care of things at home, or get along with other people? Somewhat difficult 06/15/2025 3:48 PM EDT MORRIS VEGA documented as of this encounter Progress Notes * Munira Freedman NP - 06/15/2025 4:00 PM EDT Images from the original note were not included. Subjective Patient ID: Ole Stephens is a 59 y.o. male who presents for No chief complaint on file.. Ole presents today for his echo results. Abdominal Pain This is a new problem. The current episode started 1 to 4 weeks ago. The onset quality is sudden. The problem occurs intermittently. The problem has been gradually worsening. The pain is located in the LLQ. The pain is at a severity of 3/10. The pain is moderate. The quality of the pain is crampingand sharp. The abdominal pain radiates to the LLQ. Associated symptoms include anorexia, belching, constipation, flatus, nausea and vomiting. The pain is aggravated by eating. The pain is relieved byNothing. He has tried proton pump inhibitors for the symptoms. The treatment provided no relief. His past medical history is significant for GERD. Over the past 2 weeks, how often have you been bothered by any of the following problems? Little interest or pleasure in doing things: Several days Feeling down, depressed, or hopeless: Several days Patient Health Questionnaire-2 Score: 2 If you checked off any problems on this questionnaire so far, How difficult have these problems made it for you to do your work, take care of things at home, or get along with other people?: Somewhat difficult Current Outpatient Medications on File Prior to Visit Medication Sig Dispense Refill atorvastatin (Lipitor) 20 MG tablet Take 1 tablet (20 mg) by mouth Daily 30 tablet 2 bacitracin 500 UNIT/GM ointment Apply topically in the morning and before bedtime. 14 g 1 cyclobenzaprine (Flexeril) 5 MG tablet Take 1 tablet (5 mg) by mouth 3 (three) times a day as needed for muscle spasms May take 2 at bedtime 60 tablet 2 diclofenac (Voltaren) 75 MG EC tablet Take 1 tablet (75 mg) by mouth in the morning and 1 tablet (75 mg) before bedtime. 180 tablet 3 levothyroxine (Synthroid, Levoxyl) 100 MCG tablet Take 1 tablet (100 mcg) by mouth in the morning. Take before meals. 100 tablet 3 LORazepam (Ativan) 1 MG tablet Take 1 tablet (1 mg) by mouth 3 (three) times a day as needed for anxiety for up to 10 days 30 tablet 0 mirtazapine (Remeron) 30 MG tablet Take 1 tablet (30 mg) by mouth at bedtime 30 tablet 2 pantoprazole (ProtoNix) 40 MG EC tablet Take 1 tablet (40 mg) by mouth Daily Do not crush, chew, orsplit. 100 tablet 3 sertraline (Zoloft) 100 MG tablet Take 2 tablets (200 mg) by mouth at bedtime 60 tablet 2 traMADol (Ultram) 50 MG tablet Take 1 tablet (50 mg) by mouth every 6 (six) hours if needed for severe pain for up to 7 days 28 tablet 0 No current facility-administered medications on file prior to visit. I have reviewed and reconciled the history and medication list with the patient today. Allergies Allergen Reactions Penicillins Swelling Other Reaction(s): Unknown localized to the site of injection Social History Tobacco Use Smoking status: Every Day Current packs/day: 1.00 Types: Cigarettes Smokeless tobacco: Never Vaping Use Vaping status: Never Used Substance Use Topics Alcohol use: Never Comment: Caffeine intake : chocolate Drug use: Never Family History Problem Relation Name Age of Onset Hypertension Father Coronary artery disease Father Stroke Father Hyperlipidemia Father Past Medical History: Diagnosis Date Allergies Anxiety Bipolar disorder (HCC) Chest discomfort Closed head injury 10/2016 Fall Degenerative disease of basal ganglia (HCC) Diaphoresis Dysfunction of eustachian tube Esophageal reflux Gastritis and gastroduodenitis Hyperlipidemia Hypothyroidism Loss of appetite Seizure (HCC) Vitamin B 12 deficiency Past Surgical History: Procedure Laterality Date HERNIA REPAIR 1981 Visit Vitals Smoking Status Every Day Review of Systems Constitutional: Positive for unexpected weight change. HENT: Negative. Eyes: Negative. Respiratory: Negative. Cardiovascular: Negative. Gastrointestinal: Positive for abdominal pain, anorexia, constipation, flatus, nausea and vomiting. Genitourinary: Negative. Musculoskeletal: Negative. Skin: Negative. Neurological: Negative. Psychiatric/Behavioral: Negative. Endocrine: Negative. Objective Physical Exam Vitals reviewed. Constitutional: Appearance: Normal appearance. HENT: Head: Normocephalic. Nose: Nose normal. Mouth/Throat: Mouth: Mucous membranes are moist. Pharynx: Oropharynx is clear. Eyes: Conjunctiva/sclera: Conjunctivae normal. Cardiovascular: Rate and Rhythm: Normal rate. Pulmonary: Effort: Pulmonary effort is normal. Abdominal: General: Bowel sounds are normal. Palpations: Abdomen is soft. Skin: General: Skin is warm and dry. Neurological: General: No focal deficit present. Mental Status: He is alert and oriented to person, place, and time. Psychiatric: Mood and Affect: Mood normal. Behavior: Behavior normal. Thought Content: Thought content normal. Judgment: Judgment normal. Assessment/Plan Diagnoses and all orders for this visit: Weight loss - Ambulatory referral to General Surgery; Future Referral made for EGD. Gastric pain - Ambulatory referral to General Surgery; Future - sucralfate (Carafate) 1 g tablet; Take 1 tablet (1 g) by mouth in the morning and 1 tablet (1 g) in the evening. Take before meals. Take medication as ordered. Await referral for EGD Nausea and vomiting, unspecified vomiting type - Ambulatory referral to General Surgery; Future - sucralfate (Carafate) 1 g tablet; Take 1 tablet (1 g) by mouth in the morning and 1 tablet (1 g) in the evening. Take before meals. Await referral for EGD Dysphagia, unspecified type - Ambulatory referral to General Surgery; Future Await EGD Pericardial effusion (HHS-HCC) - predniSONE (Deltasone) 10 MG tablet; Take 4 tablets (40 mg) by mouth Daily for 4 days, THEN 3 tablets (30 mg) Daily for 4 days, THEN 2 tablets (20 mg) Daily for 4 days, THEN 1 tablet (10 mg) Daily for 4 days. Pt had a small pericardial effusion on Echo. Will start Prednisone. No Motrin or Ibuprofen while onPrednisone. No follow-ups on file. documented in this encounter Plan of Treatment Upcoming Encounters Date Type Department Care Team (Late st Contact Info) Description 08/23/2025 10:30 AM EST Office Visit [facility] [address] [address] Munira Freedman NP 112 [facility] 110 [place] [address] Scheduled Referrals Name Type Priority Associated Diagnoses Orde r Schedule Ambulatory referral to General Surgery Outpatient Referral Routine Weight loss Gastric pain Nausea and vomiting, unspecified vomiting type Dysphagia, unspecified type Expected: 06/15/2025 (Approximate), Expires: 12/13/2025 documented as of this encounter Visit Diagnoses Diagnosis Weight loss- Primary Loss of weight Gastric pain Dyspepsia and other specified disorders of function of stomach Nausea and vomiting, unspecified vomiting type Dysphagia, unspecified type Pericardial effusion (HHS-HCC) Unspecified disease of pericardium Skin infection Unspecified local infection of skin and subcutaneous tissue documented in this encounter Additional Health Concerns Assessment Noted Time PHQ-9 Depression Total Score: 0 12/09/19 24 11:00 AM EST documented as of this encounter Care Teams Post Acute Care Nurse Practitioner Relationship Specialty Start Date End Date Carlos Enrique Maguire MD 112 [facility] 110 [place] [address] PCP - General Internal Medicine 02/10/23 06/21/25 documented as of this encounter
--- OUTSIDE RECORDS SUMMARY | 2025-06-21 11:30 | XMS_ITS | Encounter Summary ---
Author Organization [facility] Address [address] [place] [address] Care Team Providers Care Lead Pressman [employer] Name Role Phone Carlos Enrique Maguire MD Primary Care Provider [phone] Encounter Details Date Type Department Care Team (Late st Contact Info) Description 06/21/2025 11:30 AM EDT Office Visit [facility] [address] [facility] [address] [place] [id number] Munira Freedman, DOCUMENT REVIEW ATTORNEY [address] [facility] [address] [place], [place] [id number] Pre-operative clearance (Primary Dx) Social History Tobacco Use Types Packs/Day Years Used Date Smoking Tobacco: Every Day Cigarettes Smokeless Tobacco: Never Tobacco Cessation:Ready to Q uit: Not Asked; Counseling Given: Yes Alcohol Use Standard Drinks/Week Comments Never 0 (1 standard drink = 0.6 oz pur e alcohol) Caffeine intake : chocolate PHQ-2 Answer Date Recorded Patient Health Questionnaire-2 Score 4 06/21/2025 Sex and Gender Information Value Date Recorded Sex Assigned at Not on file Legal Sex Male 6:37 PM EDT Gender Identity Not on file Sexual Orientation Not on file documented as of this encounter Last Filed Vital Signs Vital Sign Reading Time Taken Comments Blood Pressure 122/78 06/21/2025 11:32 AM EDT Pulse 80 06/21/2025 11:32 AM EDT Temperature - - Respiratory Rate 16 06/21/2025 11:32 AM EDT Oxygen Saturation 98% 06/21/2025 11:32 AM EDT Inhaled Oxygen Concentration - - Weight 51.3 kg (113 lb) 06/21/2025 11:32 AM EDT Height 175.3 cm (5' 9 ) 06/21/2025 11:32 AM EDT Body Mass Index 16.69 06/21/2025 11:32 AM EDT documented in this encounter Functional Status * Over the past 2 weeks, how often have you been bothered by any of the following problems? Question Answer Date of Assessment Author Little interest or pleasure in doing things More than half the days 06/21/2025 11:28 AM MORRIS REMY Feeling down, depressed, or hopeless More than half the days 06/21/2025 11:28 AM MORRIS REMY Patient Health Questionnaire-2 Score 4 06/21/2025 11:28 AM MORRIS REMY * Question Answer Date of Assessment Author Trouble falling or staying asleep, or sleeping too much More than half the days 06/21/2025 11:28 AM MORRIS REMY Feeling tired or having little energy More than half the days 06/21/2025 11:28 AM MORRIS REMY Poor appetite or overeating More than damon lf the days 06/21/2025 11:28 AM MORRIS REMY Feeling bad about yourself - or that you are a failure or have let yourself or your family down More than half the days 06/21/2025 11:28 AM MORRIS REMY Trouble concentrating on things, such as reading the newspaper or watching television More than half the days 06/21/2025 11:28 AM MORRIS REMY Moving or speaking so slowly that other people could have noticed? Or the opposite - being so fidgety or restless that you have been moving around a lot more than usual. More than half the days 06/21/2025 11:28 AM MORRIS REMY Thoughts that you would be better off or hurting yourself in some way Not at all 06/21/2025 11:28 AM MORRIS REMY Patient Health Questionnaire-9 Score 16 06/21/2025 11:28 AM MORRIS REMY * If you checked off any problems on this questionnaire so far, Question Answer Date of Assessment Author How difficult have these pro blems made it for you to do your work, take care of things at home, or get along with other people? Very difficult 06/21/2025 11:28 AM MORRIS REMY documented as of this encounter Progress Notes * Munira Freedman, DOCUMENT REVIEW ATTORNEY - 06/21/2025 11:30 AM EDT Images from the original note were not included. Subjective Patient ID: Ole Stephens is a 59 y.o. male who presents for No chief complaint on file.. Ole presents today for issues with fluid around his heart. Pain management will not do anythinguntil they speak with a provider. He see's pain management at [facility] in [place]. Pt needs surgical clearance injection. See echo results: ?? Left Ventricle: Left ventricle is small. Systolic function is normal with an ejection fraction of 60-65%. The quantitative EF by [employer]D [employer] biplane is 65%. Normal diastolic function is present. ?? Right Ventricle: Right ventricular size appears normal. ?? There is no significant valvular stenosis or regurgitation. ?? Pericardium: There is a small fluid pericardial effusion. There is a left pleural effusion. 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 WBC 9.0 Hgb 12.8 BU 12 Cr 0.82 GFR 102 Na 141 K 4.7 CO2 30 Alk Phos 83 AST 18 ALT 17 Chol 142 Triglycerides 111 LDL 74 PSA 0.26 Vit B12 317 CXR negative Pt is in significant pain. He is unable to sleep. He wants to proceed with his injections Over the past 2 weeks, how often have you been bothered by any of the following problems? Little interest or pleasure in doing things: More than half the days Feeling down, depressed, or hopeless: More than half the days Patient Health Questionnaire-2 Score: 4 Over the past 2 weeks, how often have you been bothered by any of the following problems? Trouble falling or staying asleep, or sleeping too much: More than half the days Feeling tired or having little energy: More than half the days Poor appetite or overeating: More than half the days Feeling bad about yourself - or that you are a failure or have let yourself or your family down: More than half the days Trouble concentrating on things, such as reading the newspaper or watching television: More than half the days Moving or speaking so slowly that other people could have noticed? Or the opposite - being so fidgety or restless that you have been moving around a lot more than usual.: More than half the days Thoughts that you would be better off or hurting yourself in some way: Not at all Patient Health Questionnaire-9 Score: 16 If you checked off any problems on this questionnaire so far, How difficult have these problems made it for you to do your work, take care of things at home, or get along with other people?: Very difficult Current Outpatient Medications on File Prior [...] by mouth at bedtime 30 tablet 2 mupirocin (Bactroban) 2 % cream Apply topically in the morning and in the evening and before bedtime. Do all this for 10 days. 15 g 0 pantoprazole (ProtoNix) 40 MG EC tablet Take 1 tablet (40 mg) by mouth Daily Do not crush, chew, orsplit. 100 tablet 3 predniSONE (Deltasone) 10 MG tablet Take 4 tablets (40 mg) by mouth Daily for 4 days, THEN 3 tablets (30 mg) Daily for 4 days, THEN 2 tablets (20 mg) Daily for 4 days, THEN 1 tablet (10 mg) Daily for4 days. 40 tablet 0 sertraline (Zoloft) 100 MG tablet Take 2 tablets (200 mg) by mouth at bedtime 60 tablet 2 sucralfate (Carafate) 1 g tablet Take 1 tablet (1 g) by mouth in the morning and 1 tablet (1 g) in the evening. Take before meals. 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 HENT: Negative. Eyes: Negative. Respiratory: Negative. Cardiovascular: Negative. Gastrointestinal: Negative. Genitourinary: Negative. Musculoskeletal: Negative. Skin: Negative. Neurological: Negative. Psychiatric/Behavioral: Negative. Objective Physical Exam Vitals reviewed. Constitutional: Appearance: Normal appearance. HENT: Head: Normocephalic. Nose: Nose normal. Mouth/Throat: Mouth: Mucous membranes are moist. Pharynx: Oropharynx is clear. Eyes: Conjunctiva/sclera: Conjunctivae normal. Cardiovascular: Rate and Rhythm: Normal rate and regular rhythm. Pulmonary: Effort: Pulmonary effort is normal. Breath sounds: Normal breath sounds. Abdominal: General: Bowel sounds are normal. Palpations: Abdomen is soft. Musculoskeletal: General: Tenderness present. Cervical back: Neck supple. Comments: Back pain Skin: General: Skin is warm and dry. Neurological: General: No focal deficit present. Mental Status: He is alert and oriented to person, place, and time. Psychiatric: Mood and Affect: Mood normal. Behavior: Behavior normal. Thought Content: Thought content normal. Judgment: Judgment normal. Assessment/Plan Diagnoses and all orders for this visit: Pre-operative clearance The patient was interviewed and examined. The patient's medical history and medications were reviewed. Patient is to follow guidance of surgical team regarding all medications. There are no uncontrolled medical problems at present. Patient is active and has no chest pain or dyspnea. All available PAT was reviewed. The patient is cleared for surgery without additional testing. Pt does not want to see cardiology for small pericardial effusion. He is on Steroids at this time. Discussed risk and benefits with pt and he verbalized understanding. He wants to continue with injections despite the risk involved as his pain is severe and interfering with his sleep. No follow-ups on file. documented in this encounter Plan of Treatment Upcoming Encounters Date Type Department Care Team (Late st Contact Info) Description 08/23/2025 10:30 AM EST Office Visit [facility] [place] [facility] [address] [facility] [address] [place] [address] Munira Freedman NP [address] [facility] [address] [place] [address] documented as of this encounter Visit Diagnoses Diagnosis Pre-operative clearance- Primary Unspecified pre-operative examination documented in this encounter Additional Health Concerns Assessment Noted Time PHQ-9 Depression Total Score: 16 025 11:28 AM EDT documented as of this encounter Care Teams Lead Pressman [employer] Relationship Specialty Start Date End Date Carlos Enrique Maguire MD [address] [facility] [address] [place] [address] PCP - General Internal Medicine 02/10/23 06/21/25 documented as of this encounter
--- OUTSIDE RECORDS SUMMARY | 2025-06-23 08:45 | XMS_ITS | Encounter Summary ---
Author Organization [facility] Address [id number] [address] [place] [address] Care Team Providers Care Informatic[employer] Architect Name Role Phone Carlos Enrique Maguire MD Primary Care Provider [phone] Reason for Referral * Diagnostic Imaging (Routine) - Pending Review Specialty Diagnoses / Procedures Referred By Rasac melinda Referred To Contact Diagnoses Thoracic spondylosis without myelopathy Procedures Fluoroscopy less than one hour Kota Petty MD [address] [place] [address] Phone: tel: fax: Referral ID Status Reason Start Date Expiration Date V isits Requested Visits Authorized [id number] Pending Review 06/22/2025 06/22/2026 1 1 Reason for Visit * Auth/Cert Specialty Diagnoses / Procedures Referred By Iris lawrence Referred To Contact Diagnoses Thoracic spondylosis without myelopathy Thoracic spondylosis without myelopathy [721.2] Procedures CA INJ DX/THER AGNT PARAVERT FACET JOINT,IMG GUIDE,CERV/THORAC, 1ST LEVEL INJECTION BLOCK NERVE MEDIAL BRANCH; Bilat T 3/4, 4/5 Kota Petty MD [address] [place] [address] Phone: tel: fax: Referral ID Status Reason Start Date Expiration Date Visits Re quested Visits Authorized [id number] 1 1 Encounter Details Date Type Department Care Team (Latest Contact Info) Description 06/23/2025 8:45 AM EDT - 06/23/2025 9:22 AM EDT Hospital Encounter [facility] - Radiology [address] [place] [address] [place] [address] Kota Petty MD [address] [place] [address] [place] [address] Thoracic spondylosis without myelopathy Discharge Disposition: Home Social History Tobacco Use Types Packs/Day Years Used Date Smoking Tobacco: Every Day Cigarettes Smokeless Tobacco: Never Childcare Answer Date Recorded Childcare Unknown 03/16/2019 Employment Answer Date Recorded Employment Unknown 03/16/2019 Hunger Screening Answer Date Recorded Within the past 12 months we worried whether our food would run out before we got money to buy more. Never True 06/07/2025 Within the past 12 months th e food we bought just didn't last and we didn't have money to get more. Never True 06/07/2025 Sex and Gender Information Value Date Recorded Sex Assigned at Not on file Legal Sex Male 11:28 AM EDT Gender Identity Not on file Sexual Orientation Not on file documented as of this encounter Medications at Time of Discharge atorvastatin (LIPITOR) 20 mg tablet Take 1 tablet (20 mg total) by mouth in the morning. baclofen (LIORESAL) 10 mg tablet Take 1 tablet (10 mg total) by mouth 2 (two) times a day as needed for muscle spasms. 60 tablet 1 05/31/2025 gabapentin (NEURONTIN) 300 mg capsuleIndication s:Thoracic spondylosis without myelopathy,Lumbar spondylosis Take 1 capsule (300 mg total) by mouth 3 (three) times a day. 90 capsule 1 05/23/2025 levothyroxine (SYNTHROID, LEVOTHROID) 100 MCG tablet Take 1 tablet (100 mcg total) by mouth in the morning. LORazepam (ATIVAN) 0.5 mg tablet Take 1 tablet (0.5 mg total) by mouth 2 (two) times a day as needed for anxiety. 02/23/2025 meloxicam (MOBIC) 15 mg tablet Take 1 tablet (15 mg total) by mouth in the morning. 30 tablet 1 05/23/2025 mirtazapine (REMERON) 30 mg tablet Take 1 tablet (30 mg total) by mouth nightly. 11/09/2024 mupirocin (BACTROBAN) 2 % cream 06/15/2025 09/21/202 5 predniSONE (DELTASONE) 10 mg tablet Take by mouth in the morning. 40 mg taper as directed . 06/15/2025 sucralfate (CARAFATE) 1 gram tablet Take 1 tablet (1 g total) by mouth in the morning and 1 tablet (1 g total) in the evening. Take before meals. 06/15/2025 tiZANidine (ZANAFLEX) 4 mg tablet Take 1 tablet (4 mg total) by mouth every 8 (eight) hours as needed for muscle spasms. TAKE 1 TABLET(4 MG) BY MOUTH EVERY 8 HOURS NEEDED FOR MUSCLE SPASMS 12/19/2024 traMADoL (ULTRAM) 50 mg tablet Take 2 tablets (100 mg total) by mouth every 6 (six) hours as needed. 03/02/2025 doxycycline (VIBRAMYCIN) 100 mg capsule Take 1 capsule (100 mg total) by mouth in the morning and 1 capsule (100 mg total) before bedtime. 06/13/2025 documented as of this encounter Plan of Treatment Upcoming Encounters Date Type Department Care Team (Late st Contact Info) Description 07/11/2025 9:00 AM EDT Office Visit [facility] [address] [place] [id number] Monica Ortiz APRN-[facility] [address] [place] [address] 07/19/2025 10:45 AM EDT Office Visit [facility] [address] [place] [address] [place] [id number] Jackelin Omalley PA-C [address] [facility], [address] [place] [address] documented as of this encounter Procedures Procedure Name Priority Date/Time Associated Diagnosis Comments FL FLUOROSCOPY UP TO 1 HOUR Routine 06/23/2025 9:55 AM EDT Thoracic spondylosis without myelopathy documented in this encounter Results * Fluoroscopy less than one hour (06/23/2025 9:55 AM EDT) Narrative SYSTEMGENERATED, DOCUMENTATION - 06/23/2025 9:55 AM EDT No Reading Required. This procedure does not require a formal dictation. Non-Radiologist provider performed procedures can be reviewed under Post-Op, Procedure or Progress notes. For full report details, please reach out to your physician. Effective 02/19/2021 this image will be visible to you in MyChart. us Kota Petty MD IMG FLUOROSCOPY ORDERABLES Fi nal Result documented in this encounter Visit Diagnoses Diagnosis Thoracic spondylosis without myelopathy documented in this encounter Care Teams Inform[employer] Architect Relationship Specialty Start Date End Date Carlos Enrique Maguire MD [address] [place] [address] PCP - General Internal Medicine 03/15/25 documented as of this encounter
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
--- OUTSIDE RECORDS SUMMARY | 2025-06-23 10:07 | XMS_ITS | Encounter Summary ---
Author Organization [facility] Address [id number] [place] [address] Care Team Providers Care Commercial Producer Name Role Phone Carlos Enrique Maguire MD Primary Care Provider [phone] Reason for Visit * Auth/Cert Specialty Diagnoses / Procedures Referred By Contac t Referred To Contact Diagnoses Thoracic spondylosis without myelopathy Thoracic spondylosis without myelopathy [721.2] Procedures [facility] INJ DX/THER AGNT PARAVERT FACET JOINT,IMG GUIDE,CERV/THORAC, 1ST LEVEL INJECTION BLOCK NERVE MEDIAL BRANCH; Bilat T 3/4, 4/5 Kota Petty MD [address] [place] [address] Phone: tel: fax: Referral ID Status Reason Start Date Expiration Date Visits Re quested Visits Authorized [id number] 1 1 Encounter Details Date Type Department Care Team (Late st Contact Info) Description 06/23/2025 10:07 AM EDT - 06/23/2025 10:14 AM EDT Surgery [facility] - Pain Procedures [address] [place] [phone] Kota Petty MD [address], [place] [id number] INJECTION BLOCK NERVE MEDIAL BRANCH Bilat T 3/4, 4/5 [87734 (CPT )] Surgery Details Date/Time Status Location OR Service Patient Class Case Class Case Type Trauma Case? 06/23/2025 10:07 AM Posted [facility] Pain Management Outpatient Elective Panel 1 Procedure LRB Anes Op Region Wound Class Comments INJECTION BLOCK NERVE MEDIAL BRANCH Bilat T 3/4, 4/5 Bilateral Local Clean Surgeon Surgeon Role Service Panel Kota Petty MD Primary Pain Management 1 Special Needs Echo 06/08 documented in this encounter Social History Tobacco Use Types Packs/Day Years [...] 40 mg taper as directed . 06/15/2025 5 sucralfate (CARAFATE) 1 gram tablet Take 1 [...] AND PHYSICAL INTERVAL NOTE: Ole Stephens 1965 [id number] H&P reviewed. The patient was examined and there are no changes to the H&P. Kota Petty Jr, MD Source Note - Jackelin Omalley PA-C - 06/07/2025 1:00 PM EDT [facility] Pain Management [address] [place] [address] Patient: Ole Stephens Sex: male : 1965 [...] treatment: see above Pain scale after treatment: 06/14 currently Chief Complaint Patient presents with Back [...] Anxiety disorder, unspecified 12/09/2009 [place] 2 [place] 12/06/20092002 Chronic bilateral thoracic back pain Chronic idiopathic constipation 12/09/2023 Chronic pain disorder Depressive disorder 12/09/2009 Drug abuse [place] 12/06/2009 denies since 2005 Esophageal reflux 07/01/2023 ETOH abuse 12/06/2009 denies since 2005 External hemorrhoid, bleeding 12/09/2023 History of drug abuse in remission [place] 12/09/2023 Hypothyroidism 07/01/2023 Joint pain Loss of appetite 07/01/2023 Low back pain Mixed hyperlipidemia 07/01/2023 Murmur Muscle spasm Orthostatic hypotension 12/15/2009 Palpitations 12/09/2009 Seizure [place] 07/01/2023 Vitamin B12 deficiency 07/01/2023 Past Surgical History: Procedure Laterality Date INJECTION BLOCK NERVE MEDIAL BRANCH Bilat T 3, 4/5 Bilateral 05/19/2025 Performed by Kota Petty MD at [facility] Allergies Allergen Reactions Penicillins Swelling localized [...] for further evaluation. OARRS: Reviewed. Scribe Statement: IRufina CNA, scribed for and in the presence [...] Description 07/11/2025 9:00 AM EDT Office Visit [facility] [address] [place] [address] Monica Ortiz, CHARGE AUTHORIZER-PAYROLL OFFICER [address] [place] [address] 07/19/2025 10:45 AM EDT Office Visit [facility] [address] [place] [phone] Jackelin Omalley PA-C [address] [facility] [place] [address] Scheduled Orders Name Type Priority Associated Diagnoses Orde r Schedule Bedside Glucose *Place/Obtain serum glucose if >500 per glucometer. Point of Care Testing Routine As Needed until discontinued starting 06/23/2025 documented as of this encounter Procedures Procedure Name Priority Date/Time Associated Diagnosis Comments VA INJ DX/THER AGNT PARAVERT FACET JOINT,IMG GUIDE,CERV/THORAC, 1ST LEVEL 06/23/2025 9:50 AM EDT Thoracic spondylosis without myelopathy Special Needs Echo 06/08 documented in this encounter Visit Diagnoses Diagnosis Thoracic spondylosis without myelopathy- Primary Thoracic spondylosis without myelopathy documented in this encounter Admitting Diagnoses Diagnosis Thoracic spondylosis without myelopathy documented in this encounter Administered Medications Inactive Administered Medications - up to 3 most recent administrations Medication Order MAR Action Action Date Dose Rate Site BUPivacaine (PF) (MARCAINE) 0.25 % (2.5 mg/mL) injection As needed, Starting on Thu06/23/25 at 0953, Intra-op Given 06/23/2025 9:53 AM EDT 8 mL triamcinolone acetonide (KENALOG-40) injection As needed, Starting on Thu06/23/25 at 0953, Intra-op Given 06/23/2025 9:53 AM EDT 40 mg documented in this encounter Care Teams Commercial Producer Relationship Specialty Start Date End Date Carlos Enrique Maguire MD [address] [facility] [address] [place] [address] PCP - General Internal Medicine 03/15/25 documented as of this encounter
[2025-06-24 03:13] VITALS: BP 136/83; PULSE 65; TEMP 36.7; O2SAT 99; BMI 16.7
--- OUTSIDE RECORDS SUMMARY | 2025-06-24 03:14 | XMS_ITS | Encounter Summary ---
Author Organization [facility] Address [address] [place] [address] Care Team Providers Care Barrel Brander Name Role Phone Carlos Enrique Maguire MD Primary Care Provider [phone] Unallocated, [facility]oms Provider Primary Care Provi alba Encounter Details Date Type Department Care Team (Late Contact Info) Description 05/17/2025 Abstract [facility] [address] [facility] [address] [place] [phone] Carlos Enrique Maguire MD [address] [facility] [address] [place] [address] Social History Tobacco Use Types Packs/Day Years Used Date Smoking Tobacco: Every Day Cigarettes Smokeless Tobacco: Never Alcohol Use Standard Drinks/Week Comments Never 0 (1 standard drink = 0.6 oz pur e alcohol) Caffeine intake : chocolate PHQ-2 Answer Date Recorded Patient Health Questionnaire-2 Score 0 02/28/2025 Sex and Gender Information Value Date Recorded Sex Assigned at Not on file Legal Sex Male 6:37 PM EDT Gender Identity Not on file Sexual Orientation Not on file documented as of this encounter Plan of Treatment Upcoming Encounters Date Type Department Care Team (Late st Contact Info) Description 08/23/2025 10:30 AM EST Office Visit [facility] [place] [facility] [address] [facility] [address] [place] [phone] Munira Freedman NP [address] [facility] [address] [place] [address] documented as of this encounter Visit Diagnoses Not on filedocumented in this encounter Additional Health Concerns Assessment Noted Time PHQ-9 Depression Total Score: 0 12/09/19 24 11:00 AM EST documented as of this encounter Care Teams Barrel Brander Relationship Specialty Start Date End Date Carlos Enrique Maguire MD [address] [facility] [address] [place] [address] PCP - General Internal Medicine 02/10/23 06/21/25 Unallocated, Noms Provider, [address] [place], [place] [phone] PCP - General Family Medicine 06/22/25 documented as of this encounter
--- OUTSIDE RECORDS SUMMARY | 2025-06-24 03:14 | XMS_ITS | Encounter Summary ---
Author Organization [facility] Address [address] [place] [address] Care Team Providers Care Position Clerk Name Role Phone Carlos Enrique Maguire MD Primary Care Provider [phone] Carlos Enrique Maguire MD Unavailable [phone] Unallocated, Noms Provider Primary Care Provi alba Encounter Details Date Type Department Care Team (Late st Contact Info) Description 11/18/2024 Abstract [facility]un[facility] [address] [place] [address] [place] [phone] Carlos Enrique Maguire MD [address] [facility] [address] [place] [address] Social History Tobacco Use Types Packs/Day Years Used Date Smoking Tobacco: Every Day Cigarettes Smokeless Tobacco: Never Alcohol Use Standard Drinks/Week Comments Never 0 (1 standard drink = 0.6 oz pur e alcohol) Caffeine intake : chocolate Sex and Gender Information Value Date Recorded Sex Assigned at Not on file Legal Sex Male 6:37 PM EDT Gender Identity Not on file Sexual Orientation Not on file documented as of this encounter Plan of Treatment Upcoming Encounters Date Type Department Care Team (Late st Contact Info) Description 08/23/2025 10:30 AM EST Office Visit [facility] [address] [place] [address] [place] [phone] Munira Freedman NP [address] [facility] [address] [place], [place] [phone] documented as of this encounter Visit Diagnoses Not on filedocumented in this encounter Additional Health Concerns Assessment Noted Time PHQ-9 Depression Total Score: 0 12/09/19 24 11:00 AM EST documented as of this encounter Care Teams Position Clerk Relationship Specialty Start Date End Date Carlos Enrique Maguire MD [address] [facility] [address] [place] [address] PCP - General Internal Medicine 02/10/23 06/21/25 Carlos Enrique Maguire MD [address] [facility] [address] [place] [address] PCP - ACO Reach 11/18/24 01/05/25 Unallocated, Noms Provider, [address] [place] [address] PCP - General Family Medicine 06/22/25 documented as of this encounter
--- OUTSIDE RECORDS SUMMARY | 2025-06-24 03:14 | XMS_ITS | Encounter Summary ---
Author Organization [facility] Address [address] [facility] [place] [address] Care Team Providers Care Broadcast Operations Engineer Name Role Phone Carlos Enrique Maguire MD Primary Care Provider [phone] Unallocated, Noms Provider Primary Care Provi alba Encounter Details Date Type Department Care Team (Late Contact Info) Description 03/01/2025 Abstract [facility] [address] [facility] [address] [place] [phone] Carlos Enrique Maguire MD [address] [facility] [address] [place] [address] Social History Tobacco Use Types Packs/Day Years [...] 08/23/2025 10:30 AM EST Office Visit [facility] [address] [facility] [address] [place] [phone] Munira Freedman NP [address] [facility] [address] [place] [address] documented as of this encounter Visit Diagnoses Not on filedocumented in this encounter Additional Health Concerns Assessment Noted Time PHQ-9 Depression Total Score: 0 12/09/19 24 11:00 AM EST documented as of this encounter Care Teams Broadcast Operations Engineer Relationship Specialty Start Date End Date Carlos Enrique Maguire MD [address] [facility] [address] [place] [address] PCP - General Internal Medicine 02/10/23 06/21/25 Unallocated, Noms Provider, [address] [place], [place] [phone] PCP - General Family Medicine 06/22/25 documented as of this encounter
--- OUTSIDE RECORDS SUMMARY | 2025-06-24 03:14 | XMS_ITS | Encounter Summary ---
Author Organization [facility] Address [address] [place] [address] Care Team Providers Care Container Finishing Inspector Name Role Phone Carlos Enrique Maguire MD Unavailable [phone] Carlos Enrique Maguire MD Primary Care Provider [phone] Carlos Enrique Maguire MD Unavailable [phone] Unallocated, Noms Provider Primary Care Provi alba Encounter Details Date Type Department Care Team (Late st Contact Info) Description 12/10/2023 Abstract [facility] [place] [facility] [address] [facility] [address] [place] [phone] Carlos Enrique Maguire MD [address] [facility] [address] [place] [address] Social History Tobacco Use Types Packs/Day Years [...] 10:30 AM EST Office Visit [facility] [place] [facility] [address] [facility] [address] [place] [phone] Munira Freedman, JERRY [address] [facility] [address] [place], [place] [phone] documented as of this encounter Visit Diagnoses Not on filedocumented in this encounter Additional Health Concerns Assessment Noted Time PHQ-9 Depression Total Score: 0 12/09/19 24 11:00 AM EST documented as of this encounter Care Teams Container Finishing Inspector Relationship Specialty Start Date End Date Carlos Enrique Maguire MD [address] [facility] [address] [place] [address] PCP - ACO Reach 02/26/23 11/10/24 Carlos Enrique Maguire MD [address] [facility] [address] [place] [address] PCP - General Internal Medicine 02/10/23 06/21/25 Carlos Enrique Maguire MD [address] [place] [address] PCP - ACO Reach 11/18/24 01/05/25 Unallocated, Noms Provider, [address] [place] [address] PCP - General Family Medicine 06/22/25 documented as of this encounter
--- OUTSIDE RECORDS SUMMARY | 2025-06-24 03:14 | XMS_ITS | CCD ---
Author Organization [facility] Care Team Providers Care Body Stylist Name Role Phone CARLOS ENRIQUE MAGUIRE Admitting Unavailable CARLOS ENRIQUE MAGUIRE Attending Unavailable CARLOS ENRIQUE MAGUIRE Primary Care Unavailable CARLOS ENRIQUE MAGUIRE Consulting Unavailable ANA HILLIARD Consulting Unavailable CARLOS ENRIQUE MAGUIRE Primary Care Unavailable QUENTIN ZHAO Admitting Unavailable QUENTIN ZHAO Attending Unavailable QUENTIN ZHAO Consulting Unavailable GUZMAN HAJI Consulting Unavailable CODY BARRON Consulting Unavailable CARLOS ENRIQUE MAGUIRE Primary Care Unavailable SAM KOENIG Consulting Unavailable QUENTIN ZHAO Admitting Unavailable QUENTIN ZHAO Attending Unavailable QUENTIN ZHAO Consulting Unavailable PURA RUSSELL Consulting Unavailable Josephine Castillo Unavailable [phone] Carlos Enrique Maguire MD Unavailable Carlos Enrique Maguire MD Primary Care Provider [phone] Carlos Enrique Maguire MD Unavailable [phone] Benjy Ackerman Attending Unavailab Benjy Hightower Admitting Unavailab Carlos Enrique Tipton Primary Care Unavailable Carlos Enrique Maguire MD Primary Care Provider Carlos Enrique Maguire II Primary Care Provider Rebeca Dill APRN Attending Provider Jaqui Zeng APRN Attending Provider [phone] RAUDEL CROWLEY Primary Care Unavailable GABI OMALLEY Attending Unavailable CARLOS ENRIQUE MAGUIRE Primary Care Unavailable CARLOS ENRIQUE MAGUIRE Referring Unavailable GABI OMALLEY Referring Unavailable CARLOS ENRIQUE MAGUIRE Primary Care Unavailable GABI OMALLEY Attending Unavailable CARLOS ENRIQUE MAGUIRE Referring Unavailable CARLOS ENRIQUE MAGUIRE Primary Care Unavailable GABI OMALLEY Referring Unavailable CARLOS ENRIQUE MAGUIRE Primary Care Unavailable KOTA PETTY Attending Unavailable KOTA PETTY Referring Unavailable CARLOS ENRIQUE MAGUIRE Primary Care Unavailable KOTA PETTY Admitting Unavailable KOTA PETTY Attending Unavailable CARLOS ENRIQUE MAGUIRE B Referring Unavailable CARLOS ENRIQUE MAGUIRE B Primary Care Unavailable GABI OMALLEY Referring Unavailable CARLOS ENRIQUE MAGUIRE B Primary Care Unavailable GABI OMALLEY Attending Unavailable CARLOS ENRIQUE MAGUIRE B Referring Unavailable CARLOS ENRIQUE MAGUIRE B Primary Care Unavailable AHSAN, HALEY M Referring Unavailable ANDREZ CARLOS ENRIQUE B Primary Care Unavailable Anny Bhatti APRN Attending Provider [phone] MICHAEL KONG Attending Unavailable AHSANHALEY M Attending Unavailable HEMDORIAN FINCH Attending Unavailable AHSANHALEY M Attending Unavailable AHSAN HALEY M Referring Unavailable MICHAEL KONG Attending Unavailable AHSANHALEY M Referring Unavailable AHSAN, HALEY M Referring Unavailable HEMMERDORIAN M Referring Unavailable AHSAN, HALEY M Attending Unavailable AHSANJOVANIRI M Attending Unavailable AHSANJOVANIRI M Attending Unavailable Allergies Allergy Classification Reported Allergen(s) Allergy Type Date of Onset Reaction(s) Facility (6 sources) Penicillins; Translations: [PENICILLINS] Drug allergy (disorder) 0 Swelling [facility] Repository (1 source) Penicillin Drug Allergy Unknown [employer] Other (20 sources) Penicillins Drug Intolerance 0 Swelling [facility] [employer] Work Phone: (1 source) Penicillins Drug allergy (disorder) 3 [facility] [place] Repository (6 sources) Penicillins Propensity to adverse reactions to drug 0 Swelling [facility] Medications Current Medications Medication Drug Class(es) Dates Sig (Normalized) Sig (Original) atorvastatin 20 mg oral tablet (20 sources) HMG-CoA Reductase Inhibitor Start: 12-10-2023 End: 02-07-2025 take 1 tablet by mouth once daily atorvastatin (Lipitor) 20 MG tablet Indications: Mixed hyperlipidemia Take 1 tablet (20 mg) by mouth Daily 30 tablet 2 11/09/2024 Active bacitracin zinc 0.5 unt/mg topical ointment (9 sources) Start: 05-24-2025 bacitracin 500 UNIT/GM ointment Indications: Abrasion Apply topically in the morning and before bedtime. 14 g 1 05/24/2025 Active baclofen 10 mg oral tablet (4 sources) gamma-Aminobutyri c Acid-ergic Agonist Start: 05-31-2025 take 1 tablet by mouth twice daily as needed for muscle spasms baclofen (LIORESAL) 10 mg tablet Take 1 tablet (10 mg total) by mouth 2 (two) times a day as needed for muscle spasms. 60 tablet 1 05/31/2025 Active 24 hr buPROPion hydrochloride 150 mg extended release oral tablet (19 sources) Aminoketone Start: 09-29-2024 End: 02-28-2025 take 1 tablet by mouth every twenty-four hours in the morning buPROPion XL (Wellbutrin XL) 150 MG 24 hr tablet Indications: Reactive depression (situational) (CMS/HCC) Take 1 tablet (150 mg) by mouth in the morning. Do not crush, chew, or split.. 30 tablet 2 11/09/2024 02/28/2025 Discontinued (Ineffective) busPIRone hydrochloride 5 mg oral tablet (19 sources) Start: 11-09-2024 End: 02-28-2025 take 2 tablets by mouth in the morning, then take 2 tablets by mouth in the evening, then take 2 tablets by mouth at bedtime busPIRone (Buspar) 5 MG tablet Indications: Reactive depression (situational) (CMS/HCC) Take 2 tablets (10 mg) by mouth in the morning and 2 tablets (10 mg) in the evening and 2 tablets (10 mg) before bedtime. 180 tablet 11/09/2024 02/28/2025 Discontinued (Ineffective) Start: 01-22-2024 End: 11-09-2024 take 1 tablet [...] 12 hrs for 7 days Jul, Active cyclobenzaprine hydrochloride 5 mg oral tablet (11 sources) Muscle Relaxant Start: 05-24-2025 End: 01-19-2026 take 1 tablet by mouth three times daily as needed for muscle spasms, then take 2 tablets by mouth at bedtime as needed for muscle spasms cyclobenzaprine (Flexeril) 5 MG tablet Indications: Muscle spasm Take 1 tablet (5 mg) by mouth 3 (three) times a day as needed for muscle spasms May take 2 at bedtime 60 tablet 2 05/24/2025 01/19/2026 Active diclofenac sodium 75 mg delayed release oral tablet (20 sources) Nonsteroidal Anti-inflammatory Drug Start: 09-24-2024 End: 01-11-2026 take 1 tablet by mouth in the morning diclofenac (Voltaren) 75 MG EC tablet Indications: Severe back pain Take 1 tablet (75 mg) by mouth in the morning and 1 tablet (75 mg) before bedtime. 180 tablet 3 01/11/2025 01/11/2026 Active doxycycline hyclate 100 mg oral capsule (1 source) Tetracycline-class Drug Start: 06-13-2025 take 1 capsule by mouth twice daily Doxycycline Hyclate 100 mg capsule Active 100 MG PO Twice daily 24 07June 13, 2025 12:00am Complies with drug therapy gabapentin 300 mg oral capsule (9 sources) Anti-epileptic Agent Start: 04-26-2025 End: 05-22-2025 take 1 capsule by mouth three times daily gabapentin (NEURONTIN) 300 mg capsule Indications: Thoracic spondylosis without myelopathy , Lumbar spondylosis Take 1 capsule (300 mg total) by mouth 3 (three) times a day. 90 capsule 1 05/23/2025 Active levothyroxine sodium 0.1 mg oral tablet (20 sources) l-Thyroxine Start: 12-10-2023 End: 11-09-2024 take 1 tablet by mouth before mealtime levothyroxine (Synthroid, Levoxyl) 100 MCG tablet Indications: Hypothyroidism, unspecified Take 1 tablet (100 mcg) by mouth in the morning. Take before meals. 100 tablet 3 11/09/2024 Active Levothyroxine So dium 100 MCG Oral for 90 Days Active LORazepam 0.5 mg oral tablet (20 sources) Benzodiazepine Start: 06-13-2025 Lorazepam 0.5 mg tablet Active MG PO June 13, 2025 12:00am Complies with drug therapy Start: 03-02-2025 End: 06-18-2025 take 1 tablet by mouth three times daily as needed for anxiety LORazepam (Ativan) 1 MG tablet Indications: Anxiety Take 1 tablet (1 mg) by mouth 3 (three) times a day as needed for anxiety for up to 10 days 30 tablet 06/08/2025 Active Start: 02-28-2025 End: 02-28-2025 take 1 tablet by mouth three times daily as needed for anxiety LORazepam (Ativan) 1 MG tablet Indications: Anxiety Take 1 tablet (1 mg) by mouth 3 (three) times a day as needed for anxiety 30 tablet 02/28/2025 02/28/2025 Discontinued (Ineffective) Start: 11-29-2024 End: 03-25-2025 take 1 tablet by mouth twice daily as needed for anxiety LORazepam (ATIVAN) 0.5 mg tablet Take 1 tablet (0.5 mg total) by mouth 2 (two) times a day as needed for anxiety. 02/23/2025 Active Start: 08-08-2024 End: 02-07-2025 take 1 tablet by mouth every twenty-four hours as needed for anxiety and anxiety and anxiety LORazepam (Ativan) 0.5 MG tablet Indications: Anxiety Take 1 tablet (0.5 mg) by mouth Daily as needed for anxiety 30 tablet 2 11/09/2024 02/07/2025 Active meloxicam 15 mg oral tablet (10 sources) Nonsteroidal Anti-inflammatory Drug Start: 03-15-2025 End: 05-22-2025 take 1 tablet by mouth in the morning meloxicam (MOBIC) 15 mg tablet Take 1 tablet (15 mg total) by mouth in the morning. 30 tablet 1 05/23/2025 Active mirtazapine 30 mg oral tablet (20 sources) Start: 01-22-2024 End: 02-07-2025 take 1 tablet by mouth once daily mirtazapine (REMERON) 30 mg tablet Take 1 tablet (30 mg total) by mouth nightly. 11/09/2024 Active Mirtazapine 30 M G Oral for 67 Days Active mupirocin 20 mg/ml topical cream (5 sources) RNA Synthetase Inhibitor Antibacterial Start: 06-15-2025 End: 06-25-2025 mupirocin (Bactroban) 2 % cream Indications: Skin infection Apply topically in the morning and in the evening and before bedtime. Do all this for 10 days. 15 g 06/15/2025 06/25/2025 Active ondansetron 4 mg disintegrating oral tablet (4 sources) Serotonin-3 Receptor Antagonist Start: 05-24-2025 End: 05-31-2025 take 1 tablet by mouth every eight hours for nausea ondansetron ODT (Zofran-ODT) 4 MG disintegrating tablet Indications: Nausea and vomiting, unspecified vomiting type Take 1 tablet (4 mg) by mouth every 8 (eight) hours if needed for nausea or vomiting for up to 7 days 21 tablet 05/24/2025 05/31/2025 Active Start: 02-06-2025 End: 02-13-2025 take 1 tablet by mouth every eight hours for nausea ondansetron ODT (Zofran-ODT) 4 MG disintegrating tablet Indications: Nausea and vomiting, unspecified vomiting type Take 1 tablet (4 mg) by mouth every 8 (eight) hours if needed for nausea or vomiting for up to 7 days 21 tablet 02/06/2025 02/13/2025 Active 12 hr orphenadrine citrate 100 mg extended release oral tablet (20 sources) Muscle Relaxant Start: 12-16-2024 End: 05-24-2025 take 1 tablet by mouth twice daily as needed for muscle spasms orphenadrine (Norflex) 100 MG 12 hr tablet Indications: Muscle spasm Take 1 tablet (100 mg) by mouth 2 (two) times a day as needed for muscle spasms Do not crush, chew, or split. 60 tablet 1 02/28/2025 05/24/2025 Discontinued (Ineffective) Start: 09-24-2024 End: 11-28-2024 take 1 tablet by mouth twice daily as needed for muscle spasms orphenadrine (Norflex) 100 MG 12 hr tablet Indications: Muscle spasm Take 1 tablet (100 mg) by mouth 2 (two) times a day as needed for muscle spasms Do not crush, chew, or split. 60 tablet 1 09/29/2024 11/09/2024 Discontinued (Cost of medication) pantoprazole 40 mg delayed release oral tablet (11 sources) Proton Pump Inhibitor Start: 05-24-2025 End: 05-24-2026 take 1 tablet by mouth once daily pantoprazole (ProtoNix) 40 MG EC tablet Indications: Gastroesophageal reflux disease with esophagitis without hemorrhage Take 1 tablet (40 mg) by mouth Daily Do not crush, chew, or split. 100 tablet 3 05/24/2025 05/24/2026 Active predniSONE 10 mg oral tablet (5 sources) Start: 06-15-2025 End: 07-01-2025 take 4 tablets by mouth once daily, then take 3 tablets by mouth once daily, then take 2 tablets by mouth once daily, then take 1 tablet by mouth once daily predniSONE (Deltasone) 10 MG tablet Indications: Pericardial effusion (HHS-HCC) Take 4 tablets (40 mg) by mouth Daily for 4 days, THEN 3 tablets (30 mg) Daily for 4 days, THEN 2 tablets (20 mg) Daily for 4 days, THEN 1 tablet (10 mg) Daily for 4 days. 40 tablet 06/15/2025 07/01/2025 Active sertraline 100 mg oral tablet (20 sources) Serotonin Reuptake Inhibitor Start: 05-17-2025 Sertraline 100 mg tablet Active 100 MG PO May 17, 2025 12:00am Complies with drug therapy Start: 11-09-2024 End: 05-29-2025 take 2 tablets by mouth at bedtime sertraline (Zoloft) 100 MG tablet Indications: Reactive depression (situational) Take 2 tablets (200 mg) by mouth at bedtime 60 tablet 2 02/28/2025 Active sucralfate 1000 mg oral tablet (5 sources) Aluminum Complex Start: 06-15-2025 End: 06-15-2026 take 1 tablet by mouth before mealtime sucralfate (Carafate) 1 g tablet Indications: Gastric pain , Nausea and vomiting, unspecified vomiting type Take 1 tablet (1 g) by mouth in the morning and 1 tablet (1 g) in the evening. Take before meals. 60 tablet 11 06/15/2025 06/15/2026 Active tiZANidine 4 mg oral tablet (20 sources) Central alpha-2 Adrenergic Agonist Start: 12-19-2024 End: 05-24-2025 take 1 tablet by mouth every eight hours as needed tiZANidine (ZANAFLEX) 4 mg tablet Take 1 tablet (4 mg total) by mouth every 8 (eight) hours as needed for muscle spasms. TAKE 1 TABLET(4 MG) BY MOUTH EVERY 8 HOURS NEEDED FOR MUSCLE SPASMS 12/19/2024 Active Start: 01-25-2024 End: 12-09-2024 take 1 tablet by mouth every eight hours for muscle spasms tiZANidine (Zanaflex) 4 MG tablet Indications: Acute strain of neck muscle, initial encounter Take 1 tablet (4 mg) by mouth every 8 (eight) hours if needed for muscle spasms 90 tablet 11/09/2024 12/09/2024 Active traMADol hydrochloride 50 mg oral tablet (20 sources) Opioid Agonist Start: 05-17-2025 End: 05-29-2025 take 1 tablet by mouth every six hours for pain traMADol (Ultram) 50 MG tablet Indications: Severe back pain Take 1 tablet (50 mg) by mouth every 6 (six) hours if needed for severe pain for up to 7 days 28 tablet 05/22/2025 Active Start: 03-02-2025 End: 05-01-2025 take 2 tablets by mouth every six hours as needed traMADoL (ULTRAM) 50 mg tablet Take 2 tablets (100 mg total) by mouth every 6 (six) hours as needed. 03/02/2025 Active Start: 02-28-2025 End: 02-28-2025 take 2 tablets by mouth every six hours for pain traMADol (Ultram) 50 MG tablet Indications: Severe back pain Take 2 tablets (100 mg) by mouth every 6 (six) hours if needed for severe pain 28 tablet 02/28/2025 02/28/2025 Discontinued (Ineffective) Start: 02-23-2025 End: 02-28-2025 take 1 tablet by mouth every six hours for pain traMADol (Ultram) 50 MG tablet Indications: Severe back pain Take 1 tablet (50 mg) by mouth every 6 (six) hours if needed for severe pain 28 tablet 02/23/2025 02/28/2025 Discontinued (Reorder) Start: 01-10-2025 End: 01-26-2025 take 1 tablet by mouth every six hours for pain traMADol (Ultram) 50 MG tablet Indications: Severe back pain Take 1 tablet (50 mg) by mouth every 6 (six) hours if needed for severe pain 28 tablet 01/26/2025 Active Start: 11-29-2024 End: 12-06-2024 take 1 tablet by mouth every six hours for pain traMADol (Ultram) 50 MG tablet Indications: Severe back pain Take 1 tablet (50 mg) by mouth every 6 (six) hours if needed for moderate pain or severe pain for up to 7 days 28 tablet 11/29/2024 12/06/2024 Active Completed/Discontinued Medications Medication Drug Class(es) Dates [...] mg by mouth Daily 09/29/2024 Discontinued (Other) OLANZapine 5 mg oral tablet (8 sources) Atypical Antipsychotic Start: 01-22-2024 End: 11-09-2024 take 1 tablet by mouth at bedtime OLANZapine (ZyPREXA) 5 MG tablet Take 1 tablet by mouth at bedtime 01/22/2024 11/09/2024 Discontinued (Side effects) take 1 tablet by mouth once mathew y OLANZapine 20 MG TAKE 1 TABLET BY MOUTH ONCE DAILY Oral for 67 Days Active sulfamethoxazole 800 mg / trimethoprim 160 mg oral tablet (3 sources) Dihydrofolate Reductase Inhibitor Antibacterial, Sulfonamide Antimicrobial Start: 05-17-2025 End: 06-06-2025 take 1 tablet by mouth every twelve hours Sulfamethoxazole-Trimethoprim (Bactrim Ds) 800-160 mg tablet Discontinued 1 TAB PO Every 12 hours May 17, 2025 12:00am June 06, 2025 9:03am Problems Active Problems Problem Classification Problem Date Documented Date Episodic/Chronic Abdominal pain (10 sources) Unspecified abdominal pain; Translations: [Generalized abdominal pain] Onset: 12-18-19 19 02-28-2025 Episodic Adjustment disorders (2 sources) Mixed anxiety and depressive disorder; Translations: [Adjustment disorder with mixed anxiety and depressed mood] 09-29-2024 Chronic Alcohol-related disorders (20 sources) History of alcohol abuse; Translations: [Alcohol abuse, in remission] Onset: 12-07-19 Resolved : 12-09-1912-09-2023 Chronic Anxiety disorders (20 sources) Anxiety disorder, unspecified; Translations: [Anxiety disorder] Onset: 12-10-19 10 07-01-2023 Chronic Anxiety disorders (2 sources) Organic anxiety disorder; 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] 11-09-2024 Episodic Chronic obstructive pulmonary disease and bronchiectasis (1 source) Emphysema, unspecified; Translations: [EMPHYSEMA UNSPECIFIED] Onset: 12-07-19 Chronic Disorders of lipid metabolism (20 sources) Hyperlipidemia, unspecified; Translations: [Mixed hyperlipidemia] Onset: 12-06-1907-01-2023 Chronic Disorders of lipid metabolism (1 source) Pure hypercholesterolemia, unspecified; Translations: [PURE HYPERCHOLESTEROLEMIA UNSPEC] Onset: 12-07-19 Esophageal disorders (20 sources) Gastro-esophageal reflux disease without esophagitis; Translations: [Gastroesophageal reflux disease] Onset: 12-24-19 19 07-01-2023 Chronic Essential hypertension (3 sources) Hypertensive disorder; Translations: [Essential (primary) hypertension] 05-17-2025 Chronic Fluid and electrolyte disorders (2 sources) Hypokalemia; Translations: [Dehydration] Onset: 12-06-19 Episodic Heart valve disorders (5 sources) Heart murmur; Translations: [Cardiac murmur, unspecified] Onset: 06-08-2005-24-2025 Episodic Mood disorders (20 sources) Bipolar disorder; Translations: [Bipolar disorder, unspecified] Onset: 12-07-19 10 07-01-2023 Chronic Nausea and vomiting (8 sources) Nausea and vomiting; Translations: [Nausea with vomiting, unspecified] 02-06-2025 Episodic Nonspecific chest pain (4 sources) Chest pain, unspecified; Translations: [CHEST PAIN UNSPECIFIED] Onset: 12-05-19 Episodic Open wounds of extremities (1 source) Puncture wound of left hand; Translations: [Puncture wound without foreign body of left hand, initial encounter] 06-06-2025 Episodic Other aftercare (1 source) Other rat exterminator (current) 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 therapy; Translations: [OTH ALF CURRENT DRUG THERAPY] Onset: 12-07-19 Episodic Other aftercare (2 sources) Post-discharge follow-up; Translations: [Encounter for follow-up examination after completed treatment for conditions other than malignant neoplasm] 10-13-2024 Episodic Other connective tissue disease (6 sources) Spasm; Translations: [Other muscle spasm] 09-29-2024 Episodic Other gastrointestinal disorders (20 sources) Chronic idiopathic constipation; Translations: [Chronic idiopathic constipation] Onset: 12-09-1912-09-2023 Chronic Other gastrointestinal disorders (4 sources) Dysphagia; Translations: [Dysphagia, unspecified] 06-15-2025 Episodic Other injuries and conditions due to external causes (2 sources) Abrasion; Translations: [Other injury of unspecified body region, initial encounter] 05-24-2025 Episodic Other lower respiratory disease (2 sources) Rib pain; Translations: [Pleurodynia] 03-15-2025 Episodic Other lower respiratory disease (1 source) Cough; Translations: [Acute cough] 03-15-2025 Episodic Other lower respiratory disease (4 sources) Dyspnea; Translations: [Shortness of breath] 05-24-2025 Episodic Other lower respiratory disease (1 source) Shortness of breath; Translations: [Shortness of breath] Onset: 06-08-20 Episodic Other nutritional; endocrine; and metabolic disorders (2 sources) Weight loss; Translations: [Abnormal weight loss] 09-29-2024 Episodic Other nutritional; endocrine; and metabolic disorders (6 sources) Weight decreased; Translations: [Abnormal weight loss] 02-28-2025 Episodic Other screening for suspected conditions (not mental disorders or infectious disease) (4 sources) Patient encounter status; Translations: [Encounter for screening for malignant neoplasm of prostate] 02-28-2025 Episodic Yazmin-; endo-; and myocarditis; cardiomyopathy (except that caused by tuberculosis or sexually transmitted disease) (2 sources) Pericardial effusion; Translations: [Pericardial effusion (HHS-HCC)] 06-15-2025 Episodic Residual codes; unclassified (4 sources) Tobacco user; Translations: [Tobacco use] 02-28-2025 Episodic Residual codes; unclassified (1 source) Pain, unspecified; Translations: [Pain, unspecified] Onset: 03-02-20 Episodic Screening and history of mental health and substance abuse codes (2 sources) Tobacco use and exposure - finding 02-28-2025 Chronic Screening and history of mental health and substance abuse codes (6 sources) Personal history of nicotine dependence; Translations: [Tobacco use and exposure - finding] 02-28-2025 Episodic Skin and subcutaneous tissue infections (6 sources) Impetigo; Translations: [Impetigo, unspecified] 05-17-2025 Episodic Spondylosis; intervertebral disc disorders; other back problems (20 sources) Degeneration of thoracic intervertebral disc; Translations: [Other intervertebral disc degeneration, thoracic region] Onset: 03-15-2009-29-2024 Chronic Spondylosis; intervertebral disc disorders; other back problems (20 sources) Backache; Translations: [Dorsalgia, unspecified] Onset: 03-15-2009-29-2024 Episodic Sprains and strains (2 sources) Strain of neck muscle; Translations: [Strain of muscle, fascia and tendon at neck level, initial encounter] 11-09-2024 Episodic Substance-related disorders (20 sources) Nicotine dependence, cigarettes, uncomplicated; Translations: [History of drug abuse] Onset: 12-07-19 Resolved : 12-09-19 24 12-09-2023 Chronic Superficial injury; contusion (1 source) Blister (nonthermal) of oral cavity, initial encounter Episodic Thyroid disorders (20 sources) Hypothyroidism; Translations: [Hypothyroidism, unspecified] Onset: 07-01-2007-01-2023 Chronic Unclassified (1 source) Anxiety, Med Refill Onset: 11-28-19 Past or Other Problems Problem Classification Problem Date Documented Da te Episodic/Chronic Cardiac dysrhythmias (20 sources) Palpitations; Translations: [Palpitations] Onset: 12-09-2009 12-09-2023 Episodic Conditions associated with dizziness or vertigo (20 sources) Dizziness and giddiness; Translations: [Dizziness and giddiness] Onset: 12-09-2009 12-09-2023 Episodic Epilepsy; convulsions (20 sources) Seizure; Translations: [Unspecified convulsions] Onset: 07-01-2023 07-01-2023 Episodic Hemorrhoids (20 sources) Bleeding external hemorrhoids; Translations: [Residual hemorrhoidal skin tags] Onset: 12-09-2023 12-09-2023 Episodic Mood disorders (20 sources) Mood disorders Onset: 12-09-2023 Resolved: 06-21-2025 12-09-2023 Nutritional deficiencies (20 sources) Vitamin B deficiency; Translations: [Deficiency of other specified B group vitamins] Onset: 07-01-2023 07-01-2023 Episodic Other circulatory disease (20 sources) Orthostatic hypotension; Translations: [Orthostatic hypotension] Onset: 12-15-2009 12-09-2023 Episodic Other nutritional; endocrine; and metabolic disorders (1 source) Anorexia; Translations: [ANOREXIA] Onset: 12-23-2018 Episodic Other nutritional; endocrine; and metabolic disorders (20 sources) Loss of appetite; Translations: [Anorexia] Onset: 07-01-2023 07-01-2023 Episodic Other skin disorders (20 sources) Excessive sweating; Translations: [Generalized hyperhidrosis] Onset: 12-09-2009 Resolved: 12-09-2023 12-09-2023 Episodic Unclassified (2 sources) Patient encounter status 02-28-2025 Results Test Name Value Interpretation Reference Range Facility XR RIBS 3 VIEWS BILATERAL WI TH CHEST POSTEROANTERIORon 03-15-2025 XR RIBS 3 VIEWS BILATERAL WITH CHEST POSTEROANTERIOR XR RIBS 3 VIEWS BILATERAL WITH CHEST POSTEROANTERIOR Reason for exam: Acute bilateral mid to distal rib pain posteriorly, ribs cracking when coughing, no injury Views: 10 FINDINGS: The lungs are clear. The heart size is normal. No pleural abnormalities are seen. No definite rib fractures are identified. IMPRESSION: Normal study. Dictated on: 03/16/2025 7:58 AM This report has been electronically signed and approved by the interpreting Radiologist. Normal Not Available CT LUNG SCREENING LOW DOSEon 03-10-2025 CT LUNG SCREENING LOW DOSE This is a summary report. The complete report is available in the patient's medical record. If you cannot access the medical record, please contact the sending organization for a detailed fax or copy. LOW DOSE CT IMAGING OF THE CHEST WITHOUT INTRAVENOUS CONTRAST MEDIUM. HISTORY: Tobacco use. TECHNICAL FACTORS: Without IV contrast axial helical 1.25mm slice thickness low dose images of the chest performed for lung cancer screening. Findings: No suspicious nodule, mass or parenchymal consolidation. Moderate subpleural bullous formation both upper lobes/apices. No significant hilar or mediastinal lymphadenopathy. IMPRESSION: Lung Rads: LUNGRADS 2 - Benign Follow-up Recommendation: LDCT 1 Year Lung Rads categories: Category 0: Incomplete Additional Imaging Categories 1 & 2: Negative/Benign Continue annual screening Category 3: Probable benign 6 month f/u CT Chest wo Category 3s: Clinically significant or potentially clinically significant findings Category 4A/B Suspicious 4A: [address] Chest wo; PET/CT when > 8mm solid nodule component exists 4B: Chest w/ contrast; PET/CT and/or biopsy Category 5: Highly suspicious for Nodules with strong evidence of malignancy, requiring malignancy. immediate biopsy. Category 6: Incomplete Insufficient Information All CT scans at this facility use dose modulation, iterative reconstruction, and/or weight based dosing when appropriate to reduce radiation dose to as low as reasonably achievable. TRANSCRIBED BY: ELECTRONICALLY SIGNED BY: Aaron Edwards MD Normal Not Available CBC (H/H, RBC, INDICES, WBC, PLT)on 03-01-2025 Erythrocyte distribution width (RBC) [Ratio] 13.7 % Normal 11.0-15.0 [facility] Comment on above: Performed By: #### 9 27, 866, 83452, 31943, 5363, 1759, 7600 #### [facility] [address] Network Support Engineer: Brian Alvares MD Hematocrit (Bld) [Volume fraction] 41.3 % Normal 38.5-50.0 [facility] Comment on above: Performed By: #### 9 27, 866, 36826, 19577, 5363, 1759, 7600 #### [facility] [address], [address] [place] [phone] Network Support Engineer: Brian Alvares MD Hemoglobin (Bld) [Mass/Vol] 12.8 g/dL Low 13.2-17.1 [facility] Comment on above: Performed By: #### 9 27, 866, 05330, 00010, 5363, 1759, 7600 #### [facility] [address], [address] [place] [address] Network Support Engineer: Brian Alvares MD MCH (RBC) [Entitic mass] 28.7 pg Normal 27.0-33.0 [facility] Comment on above: Performed By: #### 9 27, 866, 57661, 24327, 5363, 175, 7600 #### [facility] [place] [address] Network Support Engineer: Brian Alvares MD MCHC (RBC) [Mass/Vol] 31.0 g/dL Low 32.0-36.[address] [facility] Comment on above: Result Comment: For adults, a slight decrease in the calculated MCHC value (in the range of 30 to 32 g/dL) is most likely not clinically significant; however, it should be interpreted with caution in correlation with other red cell parameters and the patient's clinical condition. Performed By: #### 9 , 86, , , 5363, 175, 7600 #### [facility] [place] [address] Network Support Engineer: Brian Alvares MD MCV (RBC) [Entitic vol] 92.6 fL Normal 80.0-100.0 [facility] Comment on above: Performed By: #### 9 , 86, 29835, , 5363, 175, 7600 #### [facility] [place] [address] Network Support Engineer: Brian Alvares MD Platelet mean volume (Bld) [Entitic vol] 10.2 fL Normal 7.5-12.5 [facility] Comment on above: Performed By: #### 9 , 86, 48820, , 5363, 1759, 7600 #### [facility] [place] [address] Network Support Engineer: Brian Alvares MD Platelets (Bld) [#/Vol] 326 10*3/uL Normal 140-400 [facility] Comment on above: Performed By: #### 9 , 86, 61463, , 5363, 175, 7600 #### [facility] of [address], [address] [place] [address] Network Support Engineer: Brian Alvares MD RBC (Bld) [#/Vol] 4.46 10*6/uL Normal 4.20-5.80 [facility] Comment on above: Performed By: #### 9 27, 866, 65447, 31252, 5363, 1759, 7600 #### [facility] of [place] [address] Network Support Engineer: Brian Alvares MD WBC (Bld) [#/Vol] 9.0 10*3/uL Normal 3.8-10.8 [facility] Comment on above: Performed By: #### 9 27, 866, 62135, 36759, 5363, 1759, 7600 #### [facility] of [place] [address] Network Support Engineer: Brian Alvares MD COMPREHENSIVE METABOLIC PANE [facility] 03-01-2025 Albumin [Mass/Vol] 4.3 g/dL Normal 3.6-5.1 [facility] Comment on above: Performed By: #### 9 27, 866, 78311, 81970, 5363, 1759, 7600 #### [facility] of [place] [address] Network Support Engineer: Brian Alvares MD Albumin/Globulin [Mass ratio] 1.7 {ratio} Normal 1.0-2.5 [facility] Comment on above: Performed By: #### 9 27, 866, 43970, 83513, 5363, 1759, 7600 #### [facility] of [place] [address] Network Support Engineer: Brian Alvares MD ALP [Catalytic activity/Vol] 83 U/L Normal 35-144 [facility] Comment on above: Performed By: #### 9 27, 866, 98092, 69841, 5363, 1759, 7600 #### [facility] of [place] [address] Network Support Engineer: Brian Alvares MD ALT [Catalytic activity/Vol] 17 U/L Normal 9-46 [facility] Comment on above: Performed By: #### 9 27, 866, 39435, 05018, 5363, 1759, 7600 #### [facility] [place] [address] Network Support Engineer: Brian Alvares MD AST [Catalytic activity/Vol] 18 U/L Normal 10-35 [facility] Comment on above: Performed By: #### 9 27, 866, 45279, 17424, 5363, 1759, 7600 #### [facility] [place] [address] Network Support Engineer: Brian Alvares MD Bilirubin [Mass/Vol] 0.3 mg/dL Normal 0.2-1.2 [facility] Comment on above: Performed By: #### 9 27, 86, 60482, , 5363, 175, 7600 #### [facility] [address], [address] [place] [address] Network Support Engineer: Brian Alvares MD BUN/CREATININE RATIO SEE NOTE: Normal 6-22 [facility] Comment on above: Result Comment: Not Reported: BUN and Creatinine are within reference range. Performed By: #### 9 27, 866, 46143, 30184, 5363, 1759, 7600 #### [facility] [place] [address] Network Support Engineer: Brian Alvares MD Calcium [Mass/Vol] 9.1 mg/dL Normal 8.6-10.3 [facility] Comment on above: Performed By: #### 9 27, 866, 58235, 95469, 5363, 1759, 7600 #### [facility] [address], [address] [place] [address] Network Support Engineer: Brian Alvares MD Chloride [Moles/Vol] 104 mmol/L Normal 98-110 [facility] Comment on above: Performed By: #### 9 27, 866, 32142, 55036, 5363, 1759, 7600 #### [facility] [place] [address] Network Support Engineer: Brian Alvares MD CO2 [Moles/Vol] 30 mmol/L Normal 20-32 [facility] Comment on above: Performed By: #### 9 27, 866, 63058, 98530, 5363, 1759, 7600 #### [facility] [place] [address] Network Support Engineer: Brian Alvares MD Creatinine [Mass/Vol] 0.82 mg/dL Normal 0.70-1.30 [facility] Comment on above: Performed By: #### 9 27, 866, 93508, 72358, 5363, 1759, 7600 #### [facility] [place] [address] Network Support Engineer: Brian Alvares MD GFR/1.73 sq M.predicted among non-blacks MDRD (S/P/Bld) [Vol rate/Area] 102 mL/min/{1.73_m2} Normal > OR = 60 [facility] Comment on above: Performed By: #### 9 27, 866, 42861, 60696, 5363, 1759, 7600 #### [facility] [place] [address] Network Support Engineer: Brian Alvares MD Globulin (S) [Mass/Vol] 2.5 g/dL Normal 1.9-3.7 [facility] Comment on above: Performed By: #### 9 27, 866, 37534, 39716, 5363, 1759, 7600 #### [facility] [place] [address] Network Support Engineer: Brian Alvares MD Glucose [Mass/Vol] 92 mg/dL Normal 65-99 [facility] Comment on above: Result Comment: Fasting reference interval Performed By: #### 9 27, 866, 74966, 25838, 5363, 1759, 7600 #### [facility] of [address], [address] [place] [address] Network Support Engineer: Brian Alvares MD Potassium [Moles/Vol] 4.7 mmol/L Normal 3.5-5.3 [facility] Comment on above: Performed By: #### 9 27, 866, 28231, 14759, 5363, 1759, 7600 #### [facility] of [place] [address] Network Support Engineer: Brian Alvares MD Protein [Mass/Vol] 6.8 g/dL Normal 6.1-8.1 [facility] Comment on above: Performed By: #### 9 27, 866, 58676, 07944, 5363, 1759, 7600 #### [facility] of [address], [address] [place] [address] Network Support Engineer: Brian Alvares MD Sodium [Moles/Vol] 141 mmol/L Normal 135-146 [facility] Comment on above: Performed By: #### 9 27, 866, 55383, 23409, 5363, 1759, 7600 #### [facility] of [place] [address] Network Support Engineer: Brian Alvares MD Urea nitrogen [Mass/Vol] 12 mg/dL Normal 7-25 [facility] Comment on above: Performed By: #### 9 27, 866, 72936, 72040, 5363, 1759, 7600 #### [facility] of [place] [address] Network Support Engineer: Brian Alvares MD LIPID PANEL, [facility] 02-03 Cholesterol [Mass/Vol] 142 mg/dL Normal <200 [facility] Comment on above: Order Comment: FASTI NG:YES FASTING: YES Performed By: #### 9 27, 866, 53949, 18724, 5363, 1759, 7600 #### [facility] of [address], [address] [place] [address] Network Support Engineer: Brian Alvares MD Cholesterol in HDL [Mass/Vol] 49 mg/dL Normal > OR = 40 [facility] Comment on above: Order Comment: FASTI NG:YES FASTING: YES Performed By: #### 9 27, 866, 23773, 04656, 5363, 1759, 7600 #### [facility] [address], [address] [place] [address] Network Support Engineer: Brian Alvares MD Cholesterol in LDL [Mass/Vol] 74 mg/dL Normal [facility] Comment on above: Order Comment: FASTI NG:YES FASTING: YES Result Comment: Refe rence range: <100 Desirable range <100 mg/dL for primary prevention; <70 mg/dL for patients with CHD or diabetic patients with > or = 2 CHD risk factors. LDL-C is now calculated using the Swathi calculation, which is a validated novel method providing better accuracy than the Friedewald equation in the estimation of LDL-C. Aman SILVEIRA et al. CLARISA. 2013;310(19): 2625-3164 (http://education.[employer] Education.Omnireliant/faq/BGX167) Performed By: #### 9 27, 866, 17638, 21955, 5363, 1759, 7600 #### [facility] [address], [address] [place] [address] Network Support Engineer: Brian Alvares MD Cholesterol.total/Cho lesterol in HDL [Mass ratio] 2.9 {ratio} Normal <5.0 [facility] Comment on above: Order Comment: FASTI NG:YES FASTING: YES Performed By: #### 9 27, 866, 62406, 54514, 5363, 1759, 7600 #### [facility] [address], [address] [place] [address] Network Support Engineer: Brian Alvares MD NON HDL CHOLESTEROL 93 mg/dL (calc) Normal <130 [facility] Comment on above: Order Comment: FASTI NG:YES FASTING: YES Result Comment: For patients with diabetes plus 1 major ASCVD risk factor, treating to a non-HDL-C goal of <100 mg/dL (LDL-C of <70 mg/dL) is considered a therapeutic option. Performed By: #### 9 27, 866, 02454, 32623, 5363, 1759, 7600 #### [facility] [place] [address] Network Support Engineer: Brian Alvares MD Triglyceride [Mass/Vol] 111 mg/dL Normal <150 [facility] Comment on above: Order Comment: FASTI NG:YES FASTING: YES Performed By: #### 9 27, 866, 70262, 35097, 5363, 1759, 7600 #### [facility] [address], [address] [place] [address] Network Support Engineer: Brian Alvares MD PSA, TOTALon 03-01-2025 PSA, TOTAL 0.26 ng/mL Normal < OR = 4.00 [facility] Comment on above: Result Comment: The total PSA value from this assay system is standardized against the WHO standard. The test result will be approximately 20% lower when compared to the equimolar-standardized total PSA (Warren Danny). Comparison of serial PSA results should be interpreted with this fact in mind. This test was performed using the Siemens chemiluminescent method. Values obtained from different assay methods cannot be used interchangeably. PSA levels, regardless of value, should not be interpreted as absolute evidence of the presence or absence of disease. Performed By: #### 9 27, 866, 19851, 10317, 5363, 1759, 7600 #### [facility] [place] [address] Network Support Engineer: Brian Alvares MD T4, FREEon 03-01-2025 Free T4 [Mass/Vol] 1.0 ng/dL Normal 0.8-1.8 [facility] Comment on above: Performed By: #### 9 27, 866, 76667, 43694, 5363, 1759, 7600 #### [facility] [place] [address] Network Support Engineer: Brian Alvares MD TSH W/REFLEX TO FT4on 2024 TSH W/REFLEX TO FT4 5.15 mIU/L High 0.40-4.50 [facility] Comment on above: Performed By: #### 9 27, 866, 51205, 94348, 5363, 1759, 7600 #### [facility] [address] [place] [address], [address] [place] [phone] Network Support Engineer: Brian Alvares MD VITAMIN B12on 03-01-2025 Cobalamin (Vitamin B12) [Mass/Vol] 317 pg/mL Normal 200-1100 [facility] Comment on above: Result Comment: Please Note: Although the reference range for vitamin B12 is 200-1100 pg/mL, it has been reported that between 5 and 10% of patients with values between 200 and 400 pg/mL may experience neuropsychiatric and hematologic abnormalities due to occult B12 deficiency; less than 1% of patients with values above 400 pg/mL will have symptoms. Performed By: #### 9 27, 866, 55273, 51430, 5363, 1759, 7600 #### [facility] [address] [facility], [address] [place] [address] Network Support Engineer: Brian Alvares MD XR ABDOMEN 2 VIEWon 02-29-20 XR ABDOMEN 2 VIEW Abdomen CLINICAL HISTORY: Abdominal pain Supine and upright views of the abdomen. Normal bowel gas pattern. Retained stool in the distal colon. No apparent air-fluid level. There are clips in the right upper quadrant related to cholecystectomy. IMPRESSION: Distal colonic stool. No evidence for obstruction Normal Not Available XR LUMBAR SPINE 4+ VIEWS WIT H FLEXION EXTENSIONon 02-28-2025 XR LUMBAR SPINE 4+ VIEWS WITH FLEXION EXTENSION Exam: XR LUMBAR SPINE 4+ VIEWS WITH FLEXION EXTENSION Reason for study: Low back pain Comparison: None AP, lateral, lateral flexion, lateral extension, and bilateral oblique views Lumbar vertebral alignment is satisfactory. No compression deformities or listhesis. No dynamic instability. The disc spaces appear to be maintained. IMPRESSION: No acute fracture or malalignment of the lumbosacral spine Dictated on: 02/28/2025 1:06 PM This report has been electronically signed and approved by the interpreting Radiologist. Normal Not Available CBC AUTO DIFFon 12-05-2019 Basophils (Bld) [#/Vol] 0.1 103/ul Normal 0.0-0.1 [facility] Comment on above: Performed By: #### C BC #### [facility] [address] [place], [place] [address] Loc [place] Basophils/100 WBC (Bld) 1.1 % Normal 0.2-2.0 [facility] Comment on above: Performed By: #### C BC #### [facility] [address] [place] [address] [place] Eosinophils (Bld) [#/Vol] 0.2 103/ul Normal 0.0-0.7 [facility] Comment on above: Performed By: #### C BC #### [facility] [address] [place] [address] [place] Eosinophils/100 WBC (Bld) 2.2 % Normal 0.9-7.0 [facility] Comment on above: Performed By: #### C BC #### [facility] [address] [place] [address] [place] Erythrocyte distribution width (RBC) [Ratio] 15.1 % Critically high 11.0-15.0 [facility] Comment on above: Performed By: #### C BC #### [facility] [address] [place] [address] [place] Hematocrit (Bld) [Volume fraction] 37.2 % Critically low 42.0-54.0 [facility] Comment on above: Performed By: #### C BC #### [facility] [address] [place] [address] [place] Hemoglobin (Bld) [Mass/Vol] 12.4 g/dL Critically low 14.0-18.0 [facility] Comment on above: Performed By: #### C BC #### [facility] [address] [place] [address] [place] IG # 0.04 10e3/ul Critically high 0.00-0.03 [facility] Comment on above: Performed By: #### C BC #### [facility] [address] [place] [address] [place] IG % 0.4 % Normal 0.0-0.5 [facility] Comment on above: Performed By: #### C BC #### [facility] [address] [place] [address] [place] Lymphocytes (Bld) [#/Vol] 2.9 103/ul Normal 1.2-3.8 [facility] Comment on above: Performed By: #### C BC #### [facility] [address] [place], [place] [id number] [place] Lymphocytes/100 WBC (Bld) 31.6 % Normal 20.5-60.0 [facility] Comment on above: Performed By: #### C BC #### [facility] [address] [place], [place] [id number] [place] MANUAL DIFF REQ NO Normal [facility] Comment on above: Performed By: #### C BC #### [facility] [address] [place], [place] [id number] [place] MCH (RBC) [Entitic mass] 27.0 pg Normal 25.9-34.0 [facility] Comment on above: Performed By: #### C BC #### [facility] [address] [place] [address] [place] MCHC (RBC) [Mass/Vol] 33.3 g/dL Normal 29.9-35.2 [facility] Comment on above: Performed By: #### C BC #### [facility] [address] [place], [place] [id number] [place] MCV (RBC) [Entitic vol] 81.0 fL Normal 80.0-94.0 [facility] Comment on above: Performed By: #### C BC #### [facility] [address] [place] [address] [place] Monocytes (Bld) [#/Vol] 0.6 103/ul Normal 0.3-0.8 [facility] Comment on above: Performed By: #### C BC #### [facility] [address] [place], [place] [id number] [place] Monocytes/100 WBC (Bld) 7.0 % Normal 1.7-12.0 [facility] Comment on above: Performed By: #### C BC #### [facility] [address] [place], [place] [id number] [place] Neutrophils (Bld) [#/Vol] 5.3 103/ul Normal 1.4-6.5 [facility] Comment on above: Performed By: #### C BC #### [facility] [address] [place], [place] [address] Loc Lord Neutrophils/100 WBC (Bld) 57.7 % Normal 43.0-75.0 [facility] Comment on above: Performed By: #### C BC #### [facility] [address] [place], [place] [address] Locannalise Lord Platelet mean volume (Bld) [Entitic vol] 9.7 fL Normal 9.5-13.5 [facility] Comment on above: Performed By: #### C BC #### [facility] [address] [place], [place] [address] Locannalise Orren Platelets (Bld) [#/Vol] 241 103/ul Normal 150-450 [facility] Comment on above: Performed By: #### C BC #### [facility] [address] [place], [place] [address] [place] RBC (Bld) [#/Vol] 4.59 106/ul Critically low 4.70-6.10 [facility] Comment on above: Performed By: #### C BC #### [facility] [address] [place] [address] Locannalise Lord WBC (Bld) [#/Vol] 9.2 103/ul Normal 4.0-11.0 [facility] Comment on above: Performed By: #### C BC #### [facility] [address] [place] [address] Locannalise Orren CTA CHEST WO W CONon 020 CTA CHEST WO W CON EXAMINATION: CTA CHEST WO W CON HISTORY: Acute shortness of [...] hilar lymph nodes, likely reactive. Normal [facility] D-DIMERon 12-05-2019 D-DIMER COMMENTS SEE BELOW Normal [facility] Comment on above: Result Comment: Incr eases [...] generalizd hospitalization. Performed By: #### D DIM ####[facility] Tob[address] [place] Fibrin D-dimer FEU IA (Bld) [Mass/Vol] 0.71 ug/mL Critically high 0.19-0.50 [facility] Comment on above: Result Comment: test repeated, critical value verified Performed By: #### D DIM ####[facility] [address] [place] [address]Gerken [place]ian PROF 14(COMP METB)on 020 Albumin [Mass/Vol] 3.6 g/dL Normal 3.5-5.0 [facility] Comment on above: Performed By: #### C MP, TROP ####[facility] [address] [place] Albumin/Globulin [Mass ratio] 1.0 {ratio} Normal [facility] Comment on above: Performed By: #### C MP, TROP ####[facility] [address] [place] ALP [Catalytic activity/Vol] 84 U/L Normal 38-126 [facility] Comment on above: Performed By: #### C MP, TROP ####[facility] [address] [place], [place] [address]Lztftu Dorian ALT [Catalytic activity/Vol] 25 U/L Normal 21-72 [facility] Comment on above: Performed By: #### C MP, TROP ####[facility] [address] [place], [place] [address]Mlihwq Dorian Anion gap [Moles/Vol] 17.1 mmol/L Normal [facility] Comment on above: Performed By: #### C MP, TROP ####[facility] [address] [place], [place] [address]Uttuaj Dorian AST [Catalytic activity/Vol] 19 U/L Normal 17-59 [facility] Comment on above: Performed By: #### C MP, TROP ####[facility] [address] [place] [address]Ufkumr Dorian Bilirubin Ql (U) 0.5 mg/dL Normal 0.2-1.3 [facility] Comment on above: Performed By: #### C MP, TROP ####[facility] [address] [place] [address]Ldwyhg Dorian Calcium [Mass/Vol] 8.8 mg/dL Normal 8.4-10.2 [facility] Comment on above: Performed By: #### C MP, TROP ####[facility] [address] [place] [address]Snwjsc [place] Chloride [Moles/Vol] 104 mmol/L Normal 98-107 [facility] Comment on above: Performed By: #### C MP, TROP ####[facility] [address] [place], [place] [address]Ftfovh Dorian CO2 [Moles/Vol] 21.3 mmol/L Critically low 22.0-30.0 [facility] Comment on above: Performed By: #### C MP, TROP ####[facility] [address] [place], [place] [address]Ywupcw Dorian Creatinine [Mass/Vol] 1.02 mg/dL Normal 0.66-1.25 [facility] Comment on above: Performed By: #### C MP, TROP ####[facility] [address] [place], [place] [address]Uwimko Dorian EGFR-AF MALAYSIAN >60 Normal >=60 [facility] Comment on above: Performed By: #### C MP, TROP ####[facility] [address] [place], [place] [address]Skcvux Dorian EGFR-NON AF MALAYSIAN >60 Normal >=60 [facility] Comment on above: Performed By: #### C MP, TROP ####[facility] [address] [place], [place] [address]Ppffgc Dorian Globulin (S) [Mass/Vol] 3.6 g/dL Normal [facility] Comment on above: Performed By: #### C MP, TROP ####[facility] [address] [place], [place] [address]Wslkdj Dorian Glucose [Mass/Vol] 99 mg/dL Normal 74-106 [facility] Comment on above: Performed By: #### C MP, TROP ####[facility] [address] [place], [place] [address]Nqdaxr Dorian Potassium [Moles/Vol] 3.4 mmol/L Normal 3.4-5.0 [facility] Comment on above: Performed By: #### C MP, TROP ####[facility] [address] [place] [address]Xmzixz Dor[place] Protein [Mass/Vol] 7.2 g/dL Normal 6.1-8.2 [facility] Comment on above: Performed By: #### C MP, TROP ####[facility] [address] [place], [place] [address]Xfsjvb Dorian Sodium [Moles/Vol] 139 mmol/L Normal 137-145 [facility] Comment on above: Performed By: #### C MP, TROP ####[facility] [facility] [id number] [place] [id number] Dorian Urea nitrogen [Mass/Vol] 19.0 mg/dL Normal 9.0-20.0 [facility] Comment on above: Performed By: #### C MP, TROP ####[facility] [address] [place], [place] [address]Wffdyh Dorian Urea nitrogen/Creatinine [Mass ratio] 18.6 mg/mg Normal [facility] Comment on above: Performed By: #### C MP, TROP ####[facility] [address] [place], [place] [address]Xocgvu Dorian PROTIMEon 12-05-2019 INR Coag (PPP) [Relative time] 1.05 {INR} Normal [facility] Comment on above: Performed By: #### P T, PTT #### [facility] [address] [place], [place] [address] Loc Dorian PT Coag (PPP) [Time] 10.9 s Normal 9.0-11.6 [facility] Comment on above: Performed By: #### P T, PTT #### [facility] [address] [place], [place] [address] Loc Dorian PT Coag (PPP) [Time] PLEASE NOTE: NORMAL RANGE CHANGE 06-22-2014 DUE TO REAGENT LOT CHANGE [facility] Comment on above: Performed By: #### P T, PTT #### [facility] [address] [place], [place] [address] Loc Dorian PT Coag (PPP) [Time] SEE BELOW Normal [facility] Comment on above: Result Comment: ADDI RED INR: 2.0 - 3.0 CONDITIONS NOT LISTED BELOW 2.5 - 3.5 FOR PROSTHETIC HEART VALVE REPLACEMENT 2.5 - 3.5 RECURRENT THROMBOSIS Performed By: #### P T, PTT #### [facility] [address] [place], [place] [address] Loc Dorian PTTon 12-05-2019 aPTT Coag (Bld) [Time] 24.8 s Normal 22.3-36.2 [facility] Comment on above: Performed By: #### P T, PTT ####[facility] [address] [place], [place] [address]Zklxsj Dorian aPTT Coag (Bld) [Time] PLEASE NOTE: NORMAL RANGE CHANGE 08-29-2015 DUE TO REAGENT LOT CHANGE Normal [facility] Comment on above: Performed By: #### P T, PTT ####[facility] [address] [place], [place] [address]XvvrrbLoc Lord TROPONIN - Ion 12-05-2019 Troponin I.cardiac [Mass/Vol] SEE BELOW Normal [facility] Comment on above: Result Comment: <0.0 34 ng/ml NEGATIVE 0.034-0.119 INDETERMINATE 0.120 AMI CUT OFF Performed By: #### C MP, TROP ####[facility] [address] [place], [place] [address]EggzrrLoc Lord Troponin I.cardiac [Mass/Vol] ng/mL Normal <=0.034 [facility] Comment on above: Performed By: #### C MP, TROP ####[facility] [address] [place] [id number] Lord CBC AUTO DIFFon 12-04-2019 Basophils (Bld) [#/Vol] 0.1 103/ul Normal 0.0-0.1 [facility] Comment on above: Performed By: #### C BC #### [facility] [address] [place] [address] Loc Dorian Basophils/100 WBC (Bld) 1.2 % Normal 0.2-2.0 [facility] Comment on above: Performed By: #### C BC #### [facility] [address] [place] [address] Loc Dorian Eosinophils (Bld) [#/Vol] 0.1 103/ul Normal 0.0-0.7 [facility] Comment on above: Performed By: #### C BC #### [facility] [address] [place] [address] Loc Dorian Eosinophils/100 WBC (Bld) 1.1 % Normal 0.9-7.0 [facility] Comment on above: Performed By: #### C BC #### [facility] [address] [place] [address] Loc Dorian Erythrocyte distribution width (RBC) [Ratio] 14.8 % Normal 11.0-15.0 [facility] Comment on above: Performed By: #### C BC #### [facility] [address] [place] [id number] Loc Dorian Hematocrit (Bld) [Volume fraction] 42.7 % Normal 42.0-54.0 [facility] Comment on above: Performed By: #### C BC #### [facility] [address] [place] [id number] Loc Droian Hemoglobin (Bld) [Mass/Vol] 14.8 g/dL Normal 14.0-18.0 [facility] Comment on above: Performed By: #### C BC #### [facility] [address] [place] [id number] Loc Dorian IG # 0.05 10e3/ul Critically high 0.00-0.03 [facility] Comment on above: Performed By: #### C BC #### [facility] [address] [place] [address] Loc Dorian IG % 0.4 % Normal 0.0-0.5 [facility] Comment on above: Performed By: #### C BC #### [facility] [address] [place] [id number] Loc Dorian Lymphocytes (Bld) [#/Vol] 2.7 103/ul Normal 1.2-3.8 [facility] Comment on above: Performed By: #### C BC #### [facility] [address] [place], [place] [phone] Loc Dorian Lymphocytes/100 WBC (Bld) 23.1 % Normal 20.5-60.0 [facility] Comment on above: Performed By: #### C BC #### [facility] [address] [place], [place] [phone] Loc Dorian MANUAL DIFF REQ NO Normal [facility] Comment on above: Performed By: #### C BC #### [facility] [address] [place], [place] [phone] Loc Dorian MCH (RBC) [Entitic mass] 27.1 pg Normal 25.9-34.0 [facility] Comment on above: Performed By: #### C BC #### [facility] [address] [place], [place] [phone] Locannalise Orren MCHC (RBC) [Mass/Vol] 34.7 g/dL Normal 29.9-35.2 [facility] Comment on above: Performed By: #### C BC #### [facility] [address] [place], [place] [address] Loc Dorian MCV (RBC) [Entitic vol] 78.2 fL Critically low 80.0-94.0 [facility] Comment on above: Performed By: #### C BC #### [facility] [address] [place], [place] [address] Loc Dorian Monocytes (Bld) [#/Vol] 1.0 103/ul Critically high 0.3-0.8 [facility] Comment on above: Performed By: #### C BC #### [facility] [address] [place] [id number] Loc Dorian Monocytes/100 WBC (Bld) 8.4 % Normal 1.7-12.0 [facility] Comment on above: Performed By: #### C BC #### [facility] [address] [place], [place] [address] Loc Dorian Neutrophils (Bld) [#/Vol] 7.6 103/ul Critically high 1.4-6.5 [facility] Comment on above: Performed By: #### C BC #### [facility] [address] [place] [address] Loc Dorian Neutrophils/100 WBC (Bld) 65.8 % Normal 43.0-75.0 [facility] Comment on above: Performed By: #### C BC #### [facility] [address] [place], [place] [address] Loc Dorian Platelet mean volume (Bld) [Entitic vol] 9.3 fL Critically low 9.5-13.5 [facility] Comment on above: Performed By: #### C BC #### [facility] [address] [place], [place] [address] Loc Dorian Platelets (Bld) [#/Vol] 285 103/ul Normal 150-450 [facility] Comment on above: Performed By: #### C BC #### [facility] [address] [place] [address] Loc Dorian RBC (Bld) [#/Vol] 5.46 106/ul Normal 4.70-6.10 The [facility] Comment on above: Performed By: #### C BC #### [facility] [address] [place], [place] [phone] Loc Dorian WBC (Bld) [#/Vol] 11.6 103/ul Critically high 4.0-11.0 [facility] Comment on above: Performed By: #### C BC #### [facility] [address] [place] [address] Loc Dorian PROF CHEM 8 (BAS METB)on Anion gap [Moles/Vol] 20.8 mmol/L Normal [facility] Comment on above: Performed By: #### T ROP, TSH, T4, BMP #### [facility] [address] [place] [address] Loc Dorian Calcium [Mass/Vol] 9.9 mg/dL Normal 8.4-10.2 [facility] Comment on above: Performed By: #### T ROP, TSH, T4, BMP #### [facility] [address] [place] [address] Loc Dorian Chloride [Moles/Vol] 102 mmol/L Normal 98-107 [facility] Comment on above: Performed By: #### T ROP, TSH, T4, BMP #### [facility] [address] [place] [address] Loc Dorian CO2 [Moles/Vol] 18.4 mmol/L Critically low 22.0-30.0 [facility] Comment on above: Performed By: #### T ROP, TSH, T4, BMP #### [facility] [address] [place] [address] Loc Dorian Creatinine [Mass/Vol] 1.50 mg/dL Critically high 0.66-1.25 [facility] Comment on above: Performed By: #### T ROP, TSH, T4, BMP #### [facility] [address] [place], [place] [address] Loc Dorian EGFR-AF MALAYSIAN 59 mL/min/1.73m2 Critically low >=60 [facility] Comment on above: Performed By: #### T ROP, TSH, T4, BMP #### [facility] [address] [place] [address] Loc Dorian EGFR-NON AF MALAYSIAN 49 mL/min/1.73m2 Critically low >=60 [facility] Comment on above: Performed By: #### T ROP, TSH, T4, BMP #### [facility] [address] [place] [address] Loc Dorian Glucose [Mass/Vol] 101 mg/dL Normal 74-106 The [facility] Comment on above: Performed By: #### T ROP, TSH, T4, BMP #### [facility] [address] [place] [address] Loc Dorian Potassium [Moles/Vol] 3.2 mmol/L Critically low 3.4-5.0 [facility] Comment on above: Performed By: #### T ROP, TSH, T4, BMP #### [facility] [address] [place] [address] Loc Dorian Sodium [Moles/Vol] 138 mmol/L Normal 137-145 The [facility] Comment on above: Performed By: #### T ROP, TSH, T4, BMP #### [facility] [address] [place] [address] Loc Dorian Urea nitrogen [Mass/Vol] 26.0 mg/dL Critically high 9.0-20.0 [facility] Comment on above: Performed By: #### T ROP, TSH, T4, BMP #### [facility] [address] [place] [address] Loc Dorian Urea nitrogen/Creatinine [Mass ratio] 17.3 mg/mg Normal [facility] Comment on above: Performed By: #### T ROP, TSH, T4, BMP #### [facility] [address] [place] [id number] Loc Dorian T4on 12-04-2019 T4 [Mass/Vol] 7.40 ug/dL Normal 5.53-11.00 [facility] Comment on above: Performed By: #### T ROP, TSH, T4, BMP #### [facility] [address] [place] [address] TROPONIN - Ion 12-04-2019 Troponin I.cardiac [Mass/Vol] ng/mL Normal <=0.034 [facility] Comment on above: Performed By: #### T ROP, TSH, T4, BMP #### [facility] [address] [place] [address] Troponin I.cardiac [Mass/Vol] SEE BELOW Normal [facility] Comment on above: Result Comment: <0.0 34 ng/ml NEGATIVE 0.034-0.119 INDETERMINATE 0.120 AMI CUT OFF Performed By: #### T ROP, TSH, T4, BMP #### [facility] [address] [place], [place] [address] TSHon 12-04-2019 TSH Qn SEE BELOW Normal [facility] Comment on above: Result Comment: <0.3 4 UIU/ml HYPERTHYROID 0.34-5.60 UIU/ml EUTHYROID >5.60 UIU/ml HYPOTHYROID Performed By: #### T ROP, TSH, T4, BMP #### [facility] [address] [place] [address] TSH Qn 11.107 uIU/mL Critically high 0.470-4.680 [facility] Comment on above: Performed By: #### T ROP, TSH, T4, BMP #### [facility] [address] [place] [address] [facility] Von 12-04-2019 XR CHEST [...] COPD. No focal consolidative opacity. Normal [facility] XR CINERADIOGRAPHYon 019 XR CINERADIOGRAPHY [address] [place] [address] Patient: OLE STEPHENS Exam Date: 12/17/2018 : 1965 Gender:M Ordering : DR CARLOS ENRIQUE MAGUIRE M.D. Admission #: [id number] Family : Order #: [id number] CLICK HERE TO VIEW EXAM RADIOLOGY REPORT [...] reflux. No visible esophageal damage. Dictated by: Ana Hilliard M.D. on 12/17/2018 at 13:58 Approved by: Ana Hilliard M.D. on 12/17/2018 at 14:01 Normal [facility] XR UPPER GI W AIR KUBon 12-03 XR UPPER GI W AIR KUB [address] [place] [address] Patient: OLE STEPHENS Exam Date: 12/17/2018 : 1965 Gender:Meenu Ordering : DR CARLOS ENRIQUE MAGUIRE M.D. Admission #: [id number] Family : Order #: [id number] CLICK HERE TO VIEW EXAM RADIOLOGY REPORT [...] reflux. No visible esophageal damage. Dictated by: Ana Hilliard M.D. on 12/17/2018 at 13:58 Approved by: Ana Hilliard M.D. on 12/17/2018 at 14:01 Normal [facility] Vital Signs Date Time Vital Sign Value Performing Clinician Facility 06-21-2025 11:32-0400 Body height 175.3 cm Haleyaidan Freedman REFINING MACHINE OPERATOR Work Phone: [facility] 06-21-2025 11:32-0400 Body mass index (BMI) [Ratio] 16.69 kg/m2 Haley Arcola REFINING MACHINE OPERATOR Work Phone: [facility] 06-21-2025 11:32-0400 Body weight 51.26 kg Haley Ahsan REFINING MACHINE OPERATOR Work Phone: [facility] 06-21-2025 11:32-0400 Diastolic blood pressure 78 mm[Hg] Haley Ahsan REFINING MACHINE OPERATOR Work Phone: [facility] 06-21-2025 11:32-0400 Heart rate 80 /min Haley Arcola REFINING MACHINE OPERATOR Work Phone: [facility] 06-21-2025 11:32-0400 Respiratory rate 16 /min Haley Ahsan REFINING MACHINE OPERATOR Work Phone: [facility] 06-21-2025 11:32-0400 SaO2% (BldA) [Mass fraction] 98 % Haley Arcola REFINING MACHINE OPERATOR Work Phone: [facility] 06-21-2025 11:32-0400 Systolic blood pressure 122 mm[Hg] Haley Arcola REFINING MACHINE OPERATOR Work Phone: [facility] 06-15-2025 15:49-0400 Body height 175.3 cm Haley Arcola REFINING MACHINE OPERATOR Work Phone: [facility] 06-15-2025 15:49-0400 Body mass index (BMI) [Ratio] 16.83 kg/m2 Haley Ahsan REFINING MACHINE OPERATOR Work Phone: [facility] 06-15-2025 15:49-0400 Body weight 51.71 kg Haley Ahsan REFINING MACHINE OPERATOR Work Phone: [facility] 06-15-2025 15:49-0400 Diastolic blood pressure 68 mm[Hg] Haley Freedman REFINING MACHINE OPERATOR Work Phone: [facility] 06-15-2025 15:49-0400 Heart rate 84 /min Haley Arcola REFINING MACHINE OPERATOR Work Phone: [facility] 06-15-2025 15:49-0400 Respiratory rate 17 /min Haley Ahsan REFINING MACHINE OPERATOR Work Phone: [facility] 06-15-2025 15:49-0400 SaO2% (BldA) [Mass fraction] 96 % Haley Reynavely REFINING MACHINE OPERATOR Work Phone: [facility] 06-15-2025 15:49-0400 Systolic blood pressure 130 mm[Hg] Haley Freedman REFINING MACHINE OPERATOR Work Phone: [facility] 06-13-2025 10:12-0400 Body height 175.26 cm Carlos Enrique Maguire II Work Phone: [facility] 06-13-2025 10:12-0400 Body mass index (BMI) [Ratio] 16.2 kg/m2 Carlos Enrique Maguire II Work Phone: [facility] 06-13-2025 10:12-0400 Body temperature 98 [degF] Carlos Enrique Maguire II Work Phone: [facility] 06-13-2025 10:12-0400 Body weight 49.95 kg Carlos Enrique Maguire II Work Phone: [facility] 06-13-2025 10:12-0400 Diastolic blood pressure 87 mm[Hg] Carlos Enrique Maguire II Work Phone: [facility] 06-13-2025 10:12-0400 Heart rate 75 /min Carlos Enrique Maguire II Work Phone: [facility] 06-13-2025 10:12-0400 Respiratory rate 18 /min Carlos Enrique Maguire II Work Phone: [facility] 06-13-2025 10:12-0400 SaO2% (BldA) [Mass fraction] 99 % Carlos Enrique Maguire II Work Phone: [facility] 06-13-2025 10:12-0400 Systolic blood pressure 129 mm[Hg] Carlos Enrique Andrez ROBERTS Work Phone: [facility] 06-07-2025 12:55-0400 Body height 175.3 cm Gabi Verhoff PA-C Work Phone: [facility] [employer] [facility] 06-07-2025 12:55-0400 Body mass index (BMI) [Ratio] 15.8 kg/m2 Gabi Verhoff PA-C Work Phone: [facility] 06-07-2025 12:55-0400 Body weight 48.53 kg Gabi Verhoff PA-C Work Phone: [facility] [employer] [facility] 06-07-2025 12:55-0400 Diastolic blood pressure 94 mm[Hg] Gabi Verhoff PA-C Work Phone: [facility] [employer] [facility] 06-07-2025 12:55-0400 Heart rate 100 /min Gabi Verhoff PA-C Work Phone: [facility] 06-07-2025 12:55-0400 Respiratory rate 18 /min Gabi Verhoff PA-C Work Phone: [facility] 06-07-2025 12:55-0400 SaO2% (BldA) [Mass fraction] 100 % Gabi Verhoff PA-C Work Phone: [facility] [employer] [facility] 06-07-2025 12:55-0400 Systolic blood pressure 129 mm[Hg] Gabi Verhoff PA-C Work Phone: [facility] 06-06-2025 09:08-0400 Body height 175.26 cm Carlos Enrique Maguire II Work Phone: [facility] 06-06-2025 09:08-0400 Body mass index (BMI) [Ratio] 16.7 kg/m2 Carlos Enriqueelisabeth Maguire II Work Phone: [facility] 06-06-2025 09:08-0400 Body temperature 98.2 [degF] Carlos Enrique Maguire II Work Phone: [facility] 06-06-2025 09:08-0400 Body weight 51.31 kg Carlos Enrique Maguire II Work Phone: [facility] 06-06-2025 09:08-0400 Diastolic blood pressure 76 mm[Hg] Carlos Enrique Maguire II Work Phone: [facility] 06-06-2025 09:08-0400 Heart rate 75 /min Carlos Enrique Maguire II Work Phone: [facility] 06-06-2025 09:08-0400 Respiratory rate 16 /min Carlos Enrique Maguire II Work Phone: [facility] 06-06-2025 09:08-0400 SaO2% (BldA) [Mass fraction] 99 % Carlos Enrique Maguire II Work Phone: [facility] 06-06-2025 09:08-0400 Systolic blood pressure 144 mm[Hg] Carlos Enrique Maguire II Work Phone: [facility] 05-24-2025 10:35-0400 Body height 175.3 cm Haley Freedman REFINING MACHINE OPERATOR Work Phone: [facility] 05-24-2025 10:35-0400 Body mass index (BMI) [Ratio] 16.69 kg/m2 Haley Freedman REFINING MACHINE OPERATOR Work Phone: [facility] 05-24-2025 10:35-0400 Body weight 51.26 kg Haley Freedman REFINING MACHINE OPERATOR Work Phone: [facility] 05-24-2025 10:35-0400 Diastolic blood pressure 78 mm[Hg] Haley Freedman REFINING MACHINE OPERATOR Work Phone: [facility] 05-24-2025 10:35-0400 Heart rate 55 /min Haley Freedman REFINING MACHINE OPERATOR Work Phone: [facility] 05-24-2025 10:35-0400 Respiratory rate 17 /min Haley Freedman REFINING MACHINE OPERATOR Work Phone: [facility] 05-24-2025 10:35-0400 SaO2% (BldA) [Mass fraction] 99 % Haley Freedman REFINING MACHINE OPERATOR Work Phone: [facility] 05-24-2025 10:35-0400 Systolic blood pressure 110 mm[Hg] Haley Freedman REFINING MACHINE OPERATOR Work Phone: [facility] 05-17-2025 09:49-0400 Body height 175.26 cm Carlos Enrique Maguire II Work Phone: [facility] 05-17-2025 09:49-0400 Body mass index (BMI) [Ratio] 16.7 kg/m2 Carlos Enrique Maguire II Work Phone: [facility] 05-17-2025 09:49-0400 Body temperature 97.9 [degF] Carlos Enrique Maguire II Work Phone: [facility] 05-17-2025 09:49-0400 Body weight 51.25 kg Carlos Enrique Maguire II Work Phone: [facility] 05-17-2025 09:49-0400 Diastolic blood pressure 79 mm[Hg] Carlos Enrique Maguire II Work Phone: [facility] 05-17-2025 09:49-0400 Heart rate 58 /min Carlos Enrique Mgauire II Work Phone: [facility] 05-17-2025 09:49-0400 Respiratory rate 14 /min Carlos Enrique Maguire II Work Phone: [facility] 05-17-2025 09:49-0400 SaO2% (BldA) [Mass fraction] 99 % Carlos Enrique Maguire II Work Phone: [facility] 05-17-2025 09:49-0400 Systolic blood pressure 131 mm[Hg] Carlos Enrique Maguire II Work Phone: [facility] 04-26-2025 08:50-0400 Diastolic blood pressure 84 mm[Hg] Gabi Omalley PA-C Work Phone: [facility] 04-26-2025 08:50-0400 Heart rate 51 /min Gabi Verhoff PA-C Work Phone: [facility] [employer] [facility] 04-26-2025 08:50-0400 Respiratory rate 18 /min Gabi Verhoff PA-C Work Phone: [facility] 04-26-2025 08:50-0400 SaO2% (BldA) [Mass fraction] 100 % Gabi Verhoff PA-C Work Phone: [facility] 04-26-2025 08:50-0400 Systolic blood pressure 126 mm[Hg] Gabi Verhoff PA-C Work Phone: [facility] 03-15-2025 12:29-0400 Body height 175.3 cm Gabi Verhoff PA-C Work Phone: [facility] 03-15-2025 12:29-0400 Body mass index (BMI) [Ratio] 16.54 kg/m2 Gabi Verhoff PA-C Work Phone: [facility] [employer] [facility] 03-15-2025 12:29-0400 Body weight 50.8 kg Gabi Verhoff PA-C Work Phone: [facility] 03-15-2025 12:29-0400 Diastolic blood pressure 95 mm[Hg] Gabi Verhoff PA-C Work Phone: [facility] 03-15-2025 12:29-0400 Heart rate 59 /min Gabi Verhoff PA-C Work Phone: [facility] [employer] [facility] 03-15-2025 12:29-0400 Respiratory rate 18 /min Gabi Verhoff PA-C Work Phone: [facility] [employer] [facility] 03-15-2025 12:29-0400 SaO2% (BldA) [Mass fraction] 100 % Gabi Verhoff PA-C Work Phone: [facility] 03-15-2025 12:29-0400 Systolic blood pressure 141 mm[Hg] Gabi Gomezabhijit PA-C Work Phone: [facility] 02-28-2025 10:11-0400 Body height 175.3 cm Haley Freedman REFINING MACHINE OPERATOR Work Phone: [facility] 02-28-2025 10:11-0400 Body mass index (BMI) [Ratio] 16.89 kg/m2 Haley Freedman REFINING MACHINE OPERATOR Work Phone: [facility] 02-28-2025 10:11-0400 Body weight 51.89 kg Haley Freedman REFINING MACHINE OPERATOR Work Phone: [facility] 02-28-2025 10:11-0400 Diastolic blood pressure 76 mm[Hg] Haley Freedman REFINING MACHINE OPERATOR Work Phone: [facility] 02-28-2025 10:11-0400 Heart rate 54 /min Haley Freedman REFINING MACHINE OPERATOR Work Phone: [facility] 02-28-2025 10:11-0400 Respiratory rate 16 /min Haley Reynavely REFINING MACHINE OPERATOR Work Phone: [facility] 02-28-2025 10:11-0400 SaO2% (BldA) [Mass fraction] 98 % Haley Freedman REFINING MACHINE OPERATOR Work Phone: [facility] 02-28-2025 10:11-0400 Systolic blood pressure 112 mm[Hg] Haley Freedman REFINING MACHINE OPERATOR Work Phone: [facility] 02-06-2025 08:38-0400 Body height 175.3 cm Dorian Hemmer PA Work Phone: [facility] 02-06-2025 08:38-0400 Body mass index (BMI) [Ratio] 17.1 kg/m2 Dorian Hemmer PA Work Phone: [facility] 02-06-2025 08:38-0400 Body temperature 97.3 [degF] Dorian Hemmer PA Work Phone: [facility] 02-06-2025 08:38-0400 Body weight 52.53 kg Dorian Hemmer PA Work Phone: [facility] 02-06-2025 08:38-0400 Diastolic blood pressure 84 mm[Hg] Dorian Hemmer PA Work Phone: [facility] 02-06-2025 08:38-0400 Heart rate 54 /min Dorian Hemmer PA Work Phone: [facility] 02-06-2025 08:38-0400 Respiratory rate 16 /min Dorian Hemmer PA Work Phone: [facility] 02-06-2025 08:38-0400 SaO2% (BldA) [Mass fraction] 98 % Dorian Hemmer PA Work Phone: [facility] 02-06-2025 08:38-0400 Systolic blood pressure 122 mm[Hg] Dorian Hemmer PA Work Phone: [facility] 11-29-2024 11:05-0500 Body height 175.3 cm Haley Freedman REFINING MACHINE OPERATOR Work Phone: [facility] 11-29-2024 11:05-0500 Body mass index (BMI) [Ratio] 16.69 kg/m2 Haley Freedman REFINING MACHINE OPERATOR Work Phone: [facility] 11-29-2024 11:05-0500 Body weight 51.26 kg Haley Freedman REFINING MACHINE OPERATOR Work Phone: [facility] 11-29-2024 11:05-0500 Diastolic blood pressure 74 mm[Hg] Haley Freedman REFINING MACHINE OPERATOR Work Phone: [facility] 11-29-2024 11:05-0500 Heart rate 56 /min Haley Freedman REFINING MACHINE OPERATOR Work Phone: [facility] 11-29-2024 11:05-0500 Respiratory rate 17 /min Haley Freedman REFINING MACHINE OPERATOR Work Phone: [facility] 11-29-2024 11:05-0500 SaO2% (BldA) [Mass fraction] 99 % Haley Freedman REFINING MACHINE OPERATOR Work Phone: [facility] 11-29-2024 11:05-0500 Systolic blood pressure 122 mm[Hg] Haley Freedman REFINING MACHINE OPERATOR Work Phone: [facility] 11-09-2024 14:00-0500 Body height 175.3 cm Michael Kong REFINING MACHINE OPERATOR Work Phone: [facility] 11-09-2024 14:00-0500 Body mass index (BMI) [Ratio] 17.66 kg/m2 Michael Kong REFINING MACHINE OPERATOR Work Phone: [facility] 11-09-2024 14:00-0500 Body weight 54.25 kg Michael Kong REFINING MACHINE OPERATOR Work Phone: [facility] 11-09-2024 14:00-0500 Diastolic blood pressure 72 mm[Hg] Michael Kong REFINING MACHINE OPERATOR Work Phone: [facility] 11-09-2024 14:00-0500 Heart rate 67 /min Michael Kong REFINING MACHINE OPERATOR Work Phone: [facility] 11-09-2024 14:00-0500 Respiratory rate 17 /min Michael Kong REFINING MACHINE OPERATOR Work Phone: [facility] 11-09-2024 14:00-0500 SaO2% (BldA) [Mass fraction] 99 % Michael Kong REFINING MACHINE OPERATOR Work Phone: [facility] 11-09-2024 14:00-0500 Systolic blood pressure 110 mm[Hg] Michael Derek REFINING MACHINE OPERATOR Work Phone: [facility] 09-29-2024 13:06-0500 Body height 175.3 cm Michael Kong REFINING MACHINE OPERATOR Work Phone: [facility] 09-29-2024 13:06-0500 Body mass index (BMI) [Ratio] 17.43 kg/m2 Michael Kong REFINING MACHINE OPERATOR Work Phone: [facility] 09-29-2024 13:06-0500 Body weight 53.52 kg Michael Derek REFINING MACHINE OPERATOR Work Phone: [facility] 09-29-2024 13:06-0500 Diastolic blood pressure 82 mm[Hg] Michael Kong REFINING MACHINE OPERATOR Work Phone: [facility] 09-29-2024 13:06-0500 Heart rate 56 /min Michael Kong REFINING MACHINE OPERATOR Work Phone: [facility] 09-29-2024 13:06-0500 SaO2% (BldA) [Mass fraction] 97 % Michael Kong REFINING MACHINE OPERATOR Work Phone: [facility] [employer] 09-29-2024 13:06-0500 Systolic blood pressure 118 mm[Hg] Michael Kong REFINING MACHINE OPERATOR Work Phone: [facility] 08-04-2023 13:25-0400 Body height 180.34 cm Josephine Castillo Other [employer] Other 08-04-2023 13:25-0400 Body mass index (BMI) [Ratio] 18.6 kg/m2 Josephine Castillo Other [employer] Other 08-04-2023 13:25-0400 Body temperature 97.3 [degF] Josephine Castillo Other [employer] Other 08-04-2023 13:25-0400 Body weight 60.51 kg Josephine Castillo Other [employer] Other 08-04-2023 13:25-0400 Diastolic blood pressure 87 mm[Hg] Josephine Castillo Other [employer] Other 08-04-2023 13:25-0400 Respiratory rate 18 /min Josephine Castillo Other [employer] Other 08-04-2023 13:25-0400 SaO2% (BldA) [Mass fraction] 96 % Josephine Castillo Other [employer] Other 08-04-2023 13:25-0400 Systolic blood pressure 128 mm[Hg] Josephine Castillo Other [employer] Other Encounters Encounter Date Encounter Type Care Provider Facility Start: 06-21-2025 End: 06-21-2025 Bamboo flowsheet Haley Freedman REFINING MACHINE OPERATOR Work Phone: [facility] Start: 06-21-2025 End: 06-21-2025 Bamboo flowsheet Haley Freedman REFINING MACHINE OPERATOR Work Phone: [facility] [facility] Start: 06-21-2025 End: 06-21-2025 Office outpatient visit 25 minutes Haley Freedman REFINING MACHINE OPERATOR Work Phone: [facility] [facility] Comment on above: Pre-operative cleara nce (Primary Dx) Start: 06-21-2025 End: 06-21-2025 Preoperative state Haley Freedman REFINING MACHINE OPERATOR Work Phone: [facility] Work Phone: Start: 06-21-2025 End: 06-21-2025 ambulatory HALEY FREEDMAN Not Available Start: 06-16-2025 End: 06-23-2025 Telephone encounter Steffi Israel RN [facility] Start: 06-15-2025 End: 06-15-2025 Office outpatient visit 25 minutes Haley Freedman REFINING MACHINE OPERATOR Work Phone: [facility] [facility] Comment on above: Weight loss (Primary Dx); Gastric pain; Nausea and vomiting, unspecified vomiting type; Dysphagia, unspecified type; Pericardial effusion ([facility]); Skin infection Start: 06-15-2025 End: 06-15-2025 ambulatory HALEY FREEDMAN Not Available Start: 06-15-2025 End: 06-15-2025 Bamboo flowsheet Haley Freedman REFINING MACHINE OPERATOR Work Phone: [facility] [place] [facility] Start: 06-15-2025 End: 06-15-2025 Bamboo flowsheet Haley Freedman REFINING MACHINE OPERATOR Work Phone: [facility] [place] [facility] Start: 06-13-2025 End: 06-13-2025 ambulatory Carlos Enrique Maguire II Work Phone: [facility] Work Phone: Start: 06-13-2025 End: 06-13-2025 Patient encounter procedure Anny Corrigan [facility] WORK[facility] [place] Work Phone: Start: 06-08-2025 End: 06-08-2025 Refjolie Maguire MD Work Phone: [facility] [place] [address] [place] [address] Medicine Comment on above: Anxiety Start: 06-07-2025 End: 06-07-2025 Office outpatient visit 15 minutes Gabi Omalley PA-C Work Phone: [facility] Comment on above: Thoracic spondylosis without myelopathy (Primary Dx) Start: 06-07-2025 End: 06-07-2025 [facility] Start: 06-06-2025 End: 06-06-2025 ambulatory Carlos Enrique Maguire II Work Phone: [facility] Work Phone: Start: 06-06-2025 End: 06-06-2025 Patient encounter procedure Jaqui Bliss Karri [facility] WORK[facility] [place] Work Phone: Start: 05-24-2025 End: 05-24-2025 Bamboo flowsheet Haley Freedman REFINING MACHINE OPERATOR Work Phone: [facility] [place] [facility] Start: 05-24-2025 End: 05-24-2025 Bamboo flowsheet Haley Freedman REFINING MACHINE OPERATOR Work Phone: [facility] [place] [facility] Start: 05-24-2025 End: 05-24-2025 ambulatory HALEY FREEDMAN Not Available Start: 05-24-2025 End: 05-24-2025 Office outpatient visit 25 minutes Haley Freedman REFINING MACHINE OPERATOR Work Phone: [facility] [facility] Comment on above: SOB (shortness of br eath) (Primary Dx); Nausea and vomiting, unspecified vomiting type; Muscle spasm; Abrasion; Gastroesophageal reflux disease with esophagitis without hemorrhage; Murmur, heart Start: 05-22-2025 End: 05-24-2025 Telephone encounter Carlos Enrique Maguire MD Work Phone: [address] Comment on above: Thoracic spondylosis without myelopathy; Lumbar spondylosis Start: 05-20-2025 End: 05-22-2025 Refill Carlos Enrique Maguire MD Work Phone: [facility] Comment on above: Anxiety; Severe back pain Start: 05-19-2025 End: 05-19-2025 ambulatory KOTA Sosa PETTY [facility] Start: 05-17-2025 End: 05-17-2025 ambulatory Carlos Enrique Maguire II Work Phone: [facility] Work Phone: Start: 05-17-2025 End: 05-17-2025 Patient encounter procedure Rebeca Dill [facility]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 [facility] [place] Work Phone: Start: 05-08-2025 ambulatory [facility]ABI [facility] Start: 04-26-2025 End: 04-26-2025 Office outpatient visit 25 minutes Gabi CEDEÑOC Work Phone: [facility] Comment on above: Thoracic spondylosis without myelopathy (Primary Dx); Lumbar spondylosis Start: 04-26-2025 End: 04-26-2025 ambulatory GABI N [facility] Start: 04-24-2025 End: 04-24-2025 Refjolie Maguire MD Work Phone: [facility] Comment on above: Severe back pain Start: 04-17-2025 End: 04-18-2025 Refjolie Maguire MD Work Phone: [facility] Comment on above: Anxiety Start: 04-08-2025 End: 04-10-2025 Refjolie Maguire MD Work Phone: [facility] Comment on above: Severe back pain Start: 03-16-2025 ambulatory [facility] Daisy HAQUEОЛЬГА [facility] Start: 03-15-2025 End: 03-15-2025 ambulatory DORIAN CANADA Not Available Start: 03-15-2025 End: 03-15-2025 Telephone encounter Carlos Enrique Maguire MD Work Phone: [facility] Start: 03-15-2025 End: 03-15-2025 ambulatory [facility] Start: 03-15-2025 End: 03-15-2025 Office outpatient new 45 minutes [facility] Work Phone: [facility] Comment on above: Thoracic spondylosis without myelopathy (Primary Dx); Lumbar spondylosis Start: 03-14-2025 End: 03-15-2025 Telephone encounter Carlos Enrique Maguire MD Work Phone: [facility] Start: 03-10-2025 End: 03-10-2025 ambulatory HALEY FREEDMAN Not Available Start: 03-02-2025 ambulatory [facility] Start: 02-28-2025 End: 02-28-2025 Bamboo flowsheet Haley Freedman REFINING MACHINE OPERATOR Work Phone: [facility] Start: 02-28-2025 End: 02-28-2025 Bamboo flowsheet Haley Freedman REFINING MACHINE OPERATOR Work Phone: [facility] Start: 02-28-2025 End: 02-28-2025 Telephone encounter Haley Freedman REFINING MACHINE OPERATOR Work Phone: [facility] Start: 02-28-2025 End: 02-28-2025 ambulatory HALEY FREEDMAN Not Available Start: 02-28-2025 End: 02-28-2025 Assay of hemosiderin, quant Haley Freedman REFINING MACHINE OPERATOR Work Phone: [facility] Start: 02-28-2025 End: 02-28-2025 Patient encounter procedure Haley Freedman REFINING MACHINE OPERATOR Work Phone: [facility] Comment on above: Chronic bilateral th oracic back pain (Primary Dx); Reactive depression (situational) (CMS/HCC); Muscle spasm; Vitamin B12 deficiency; Acquired hypothyroidism (CMS/HCC); Mixed hyperlipidemia (CMS/HCC); Orthostatic hypotension; Weight loss; Screening for prostate cancer; Seizure ([facility]); Palpitations; Chronic idiopathic constipation; Other specified anxiety disorders; Bipolar disorder, in partial remission, most recent episode mixed ([facility]); History of drug abuse in remission; History of ETOH abuse; Persistent depressive disorder ([facility]/HCC); Routine general medical examination at health care facility; Generalized abdominal pain; Acute bilateral low back pain without sciatica; History of smoking for more than 10 years; Screening for lung cancer; Continuous tobacco abuse; Personal history of nicotine dependence; Medicare annual wellness visit, subsequent Start: 02-28-2025 End: 02-28-2025 ambulatory HALEY FREEDMAN Not Available Start: 02-06-2025 End: 02-06-2025 Bamboo flowsheet Dorian PATRICIO Work Phone: [facility] Start: 02-06-2025 End: 02-06-2025 Bamboo flowsheet Dorian Canada PA Work Phone: [facility] Start: 02-06-2025 End: 02-06-2025 Office outpatient visit 15 minutes Dorian PATRICIO Work Phone: [facility] Comment on above: Nausea and vomiting, unspecified vomiting type (Primary Dx); Chronic idiopathic constipation; Acute bilateral low back pain without sciatica Start: 02-06-2025 End: 02-06-2025 ambulatory DORIAN CANADA Not Available Start: 01-26-2025 End: 01-26-2025 Refjolie Maguire MD Work Phone: [facility] Comment on above: Severe back pain Start: 01-06-2025 End: 01-10-2025 Vickie Maguire MD Work Phone: [facility] Comment on above: Severe back pain Start: 11-29-2024 End: 11-29-2024 Bamboo flowsheet Haley Freedman REFINING MACHINE OPERATOR Work Phone: [facility] Start: 11-29-2024 End: 11-29-2024 Bamboo flowsheet Haley Freedman REFINING MACHINE OPERATOR Work Phone: [facility] Start: 11-29-2024 End: 11-29-2024 Office outpatient visit 25 minutes Haley Freedman REFINING MACHINE OPERATOR Work Phone: [facility] Comment on above: Severe back pain; Anxiety Start: 11-29-2024 End: 11-29-2024 ambulatory HALEY FREEDMAN Not Available Start: 11-28-2024 End: 11-28-2024 Emergency department patient visit RAUDEL [facility] Start: 11-09-2024 End: 11-09-2024 Bamboo flowsheet Michael Kong REFINING MACHINE OPERATOR Work Phone: [facility] Start: 11-09-2024 End: 11-09-2024 Bamboo flowsheet Michael Kong REFINING MACHINE OPERATOR Work Phone: [facility] Start: 11-09-2024 End: 11-09-2024 Office outpatient visit 25 minutes Michael Kong REFINING MACHINE OPERATOR Work Phone: [facility] Comment on [...] mixed (CMS/HCC) Start: 11-09-2024 End: 11-09-2024 ambulatory MICHAEL KONG Not Available Start: 10-04-2024 ambulatory Benjy Carbajal acility:[facility] Start: 10-03-2024 End: 10-14-2024 Telephone encounter Marsha Schofield ROSHAN [facility] Start: 09-29-2024 End: 09-29-2024 Bamboo flowsheet Michael Kong REFINING MACHINE OPERATOR Work Phone: [facility] Start: 09-29-2024 End: 09-29-2024 Bamboo flowsheet Michael Kong REFINING MACHINE OPERATOR Work Phone: [facility] Start: 09-29-2024 End: 09-29-2024 Office outpatient visit 25 minutes Michael Kong REFINING MACHINE OPERATOR Work Phone: [facility] Comment on above: Hospital discharge f ollow-up (Primary Dx); Degenerative disc disease, thoracic; Severe back pain; Muscle spasm; Reactive depression (situational) (CMS/HCC); Situational mixed anxiety and depressive disorder (CMS/HCC); Weight loss Start: 09-29-2024 End: 09-29-2024 ambulatory MICHAEL KONG Not Available Start: 08-04-2023 End: 08-04-2023 ambulatory Josephine Castillo Other [employer] Other Start: 08-04-2023 Office outpatient ne w 20 minutes Josephine Castillo [facility] [place] Start: 12-05-2019 End: 12-05-2019 Patient encounter procedure CARLOS ENRIQUE MAGUIRE Facility:[facility] Start: 12-04-2019 End: 12-04-2019 Patient encounter procedure CARLOS ENRIQUE MAGUIRE Facility:[facility] Start: 12-17-2018 End: 12-18-2018 Patient encounter procedure CARLOS ENRIQUE MAGUIRE Facility:[facility] Plan of Treatment Date Care Activity Detail Author Start: 06-06-2035 DTaP,Tdap and Td Vaccines (2 - Td or Tdap) DTaP,Tdap and Td Vaccines (2 - Td or Tdap) [facility] Start: 06-23-2026 Tobacco Screening Tobacco Screening [facility] Start: 06-07-2026 Adult BMI Screening Adult BMI Screening [facility] Start: 06-07-2026 Tobacco Screening Tobacco Screening [facility] Start: 03-15-2026 Adult BMI Screening Adult BMI Screening [facility] Start: 02-28-2026 Medicare Annual Wellness (AWV) Medicare Annual Wellness (AWV) [facility] Start: 08-23-2025 End: 08-23-2025 Patient encounter procedure 08/23/2025 10:30 AM EST Office Visit [facility] [address] [place] [address] Haley Freedman REFINING MACHINE OPERATOR [address] [place] [address] [facility] Start: 07-19-2025 End: 07-19-2025 Patient encounter procedure 07/19/2025 10:45 AM EDT Office Visit [facility] [address] [place] [phone] Gabi Omalley, PAAngC [address] [place], [place] [id number] [facility] Start: 07-11-2025 End: 07-11-2025 Patient encounter procedure 07/11/2025 9:00 AM EDT Office Visit [facility] General Surgery [address] [place] [id number] Monica Ortiz, MORTAR WORKER-TRANSITION OF CARE SPECIALIST [address] [place] [address] [facility] General Surgery Start: 06-23-2025 End: 06-23-2025 Admission to same day surgery center 06/23/2025 10:07 AM EDT - 06/23/2025 10:14 AM EDT Surgery [facility] [address] [place] [phone] Kota Petty MD [address] [place] [address] INJECTION FACET JOINT Bilateral T 3/4, 4/5 [59049 (CPT )] [facility] Comment on above: INJECTION FACET JOINT Bilateral T 3/4, 4 /5 [75048 (CPT )] Start: 06-23-2025 End: 06-23-2025 Njx dx/ther agt pvrt facet jt crv/thrc 1 level INJECTION FACET JOINT Thoracic spondylosis without myelopathy 06/23/2025 10:07 AM EDT [facility] Start: 06-23-2025 Subsequent hospital visit by physician 06/23/2025 10:07 AM EDT Hospital Encounter [facility] [address] [place] [phone] Kota Petty MD [address], [place] [phone] [facility] Start: 06-21-2025 End: 06-21-2025 Patient encounter procedure 06/21/2025 11:30 AM EDT Office Visit [facility] [address] [place] [address] Haley Freedman NP [address] [place] [address] Arrived [facility] Comment on above: Arrived Start: 06-15-2025 End: 06-15-2025 Patient encounter procedure 06/15/2025 4:00 PM EDT Office Visit [facility] [place] [facility] [address] [place] [address] Halye Freedman NP [address] [place] [address] Arrived [facility] Comment on above: Arrived Start: 06-08-2025 End: 06-08-2025 Patient encounter procedure 06/08/2025 7:30 AM EDT Appointment [facility] [address] [place] [phone] [facility] Start: 06-07-2025 End: 06-07-2025 Patient encounter procedure [facility] Start: 06-05-2025 Influenza vaccination [facility] Start: 05-24-2025 End: 05-24-2027 Echocardiogram 2D complete Echocardiogram 2D complete Echocardiography Routine Murmur, heart SOB (shortness of breath) Expected: 05/24/2025 (Approximate), Expires: 05/24/2027 [facility] Work Phone: Comment on above: Expected: 05/24/2025 (Approximate), Expi res: 05/24/2027 Start: 05-24-2025 End: 05-24-2025 Patient encounter procedure [facility] [address] [facility] Start: 05-19-2025 End: 05-19-2025 Admission to same day surgery center 05/19/2025 9:45 AM EDT - 05/19/2025 9:52 AM EDT Surgery [facility] [address] [place] [phone] Kota Petty MD [address] [place], [place] [phone] INJECTION FACET JOINT Bilateral T 3/4, 4/5 [87845 (CPT )] [facility] Comment on above: INJECTION FACET JOINT Bilateral T 3/4, 4 /5 [41075 (CPT )] Start: 05-19-2025 End: 05-19-2025 Njx dx/ther agt pvrt facet jt crv/thrc 1 level INJECTION FACET JOINT Thoracic spondylosis without myelopathy 05/19/2025 9:45 AM EDT [facility] Start: 05-19-2025 Subsequent hospital visit by physician 05/19/2025 9:45 AM EDT Hospital Encounter [facility] [address] [place] [phone] Kota Petty MD [address] [place] [address] [facility] Start: 04-26-2025 End: 04-26-2025 Patient encounter procedure 04/26/2025 8:45 AM EDT Office Visit [facility] [address] [phone] Gabi Omalley, PA-C [address] [place] [address] [facility] Start: 03-15-2025 End: 03-15-2026 XR Chest 2 Views XR chest 2 views Imaging Routine Rib pain Expected: 03/15/2025, Expires: 03/15/2026 [facility] Work Phone: Comment on above: Expected: 03/15/2025, Expires: Start: 03-15-2025 End: 03-15-2026 XR Ribs Views and Chest PA [facility] Work Phone: Comment on above: Expected: 03/15/2025, Expires: Start: 02-28-2025 End: 02-28-2026 CBC panel - Blood by Automated count CBC Lab Routine Orthostatic hypotension Expected: 02/28/2025 (Approximate), Expires: 02/28/2026 [facility] Comment on above: Expected: 02/28/2025 (Approximate), Expi res: 02/28/2026 Start: 02-28-2025 End: 02-28-2026 Cobalamin (Vitamin B12) [Mass/volume] in Serum or Plasma Vitamin B12 Lab Routine Vitamin B12 deficiency Expected: 02/28/2025 (Approximate), Expires: 02/28/2026 [facility] Comment on above: Expected: 02/28/2025 (Approximate), Expi res: 02/28/2026 Start: 02-28-2025 End: 02-28-2026 Comprehensive metabolic 2000 panel - Serum or Plasma Comprehensive metabolic panel Lab Routine Acquired hypothyroidism (CMS/HCC) Orthostatic hypotension Weight loss Expected: 02/28/2025 (Approximate), Expires: 02/28/2026 [facility] Comment on above: Expected: 02/28/2025 (Approximate), Expi res: 02/28/2026 Start: 02-28-2025 End: 02-28-2026 CT Chest for screening WO contrast [facility] Comment on above: Expected: 02/28/2025 (Approximate), Expi res: 02/28/2026 Expected: 02/28/2025 , Expires: 02/28/2026 Start: 02-28-2025 End: 02-28-2026 Lipid 1996 panel - Serum or Plasma Lipid panel Lab Routine Mixed hyperlipidemia (CMS/HCC) Expected: 02/28/2025 (Approximate), Expires: 02/28/2026 [facility] Comment on above: Expected: 02/28/2025 (Approximate), Expi res: 02/28/2026 Start: 02-28-2025 End: 02-28-2026 Prostate specific Ag [Mass/volume] in Serum or Plasma PSA Lab Routine Screening for prostate cancer Expected: 02/28/2025 (Approximate), Expires: 02/28/2026 [facility] Comment on above: Expected: 02/28/2025 (Approximate), Expi res: 02/28/2026 Start: 02-28-2025 End: 02-28-2026 TSH W/REFLEX TO FT4 TSH W/REFLEX TO FT4 Lab Routine Acquired hypothyroidism (CMS/HCC) Expected: 02/28/2025 (Approximate), Expires: 02/28/2026 [facility] Work Phone: Comment on above: Expected: 02/28/2025 (Approximate), Expi res: 02/28/2026 Start: 02-28-2025 End: 02-28-2026 XR Abdomen Single view XR ABDOMEN 2 VIEW Imaging Routine Chronic idiopathic constipation Expected: 02/28/2025, Expires: 02/28/2026 [facility] [facility] Comment on above: Expected: 02/28/2025, Expires: Start: 02-28-2025 End: 02-28-2026 XR Lumbar spine Views W flexion and W extension XR lumbar spine 4+ views w flexion extension Imaging Routine Acute bilateral low back pain without sciatica Expected: 02/28/2025, Expires: 02/28/2026 [facility] Comment on above: Expected: 02/28/2025, Expires: Start: 02-28-2025 End: 02-28-2025 Patient encounter procedure [facility] Comment on above: Arrived Start: 02-08-2025 End: 02-08-2025 Patient encounter procedure 02/08/2025 1:00 PM EDT Office Visit [facility] [address] [place] [address] Michael Kong REFINING MACHINE OPERATOR [address] [place] [address] [facility] Start: 02-06-2025 End: 02-06-2025 Patient encounter procedure 02/06/2025 8:30 AM EDT Office Visit [facility] [address] [place] [address] Dorian Canada PA [address] [place] [address] Arrived [facility] Comment on above: Arrived Start: 12-08-2024 Medicare Annual Wellness (AWV) Medicare Annual Wellness (AWV) [facility] Start: 12-08-2024 Screening for malignant neoplasm of colon Colorectal Cancer Screening [facility] Comment on above: Postponed from 1966 (Patient Refus ed) Start: 11-29-2024 End: 11-29-2024 Patient encounter procedure 11/29/2024 11:00 AM EST Office Visit [facility] [address] [place] [address] Haley Freedman REFINING MACHINE OPERATOR [address] [place] [address] Arrived [facility] Comment on above: Arrived Start: 11-09-2024 End: 11-09-2024 Patient encounter procedure 11/09/2024 2:00 PM EST Office Visit [facility] [address] [place] [address] Michael Kong, REFINING MACHINE OPERATOR [address] [place] [address] Arrived [facility] Comment on above: Arrived Start: 10-27-2024 End: 10-27-2024 Patient encounter procedure 10/27/2024 1:30 PM EST Office Visit [facility] [address] [place] [address] Michael Kong, REFINING MACHINE OPERATOR [address] [place] [address] [facility] Start: 09-29-2024 End: 09-29-2024 Patient encounter procedure 09/29/2024 1:00 PM EST Office Visit [facility] [address] [place] [address] Michael Kong, REFINING MACHINE OPERATOR [address] [place] [address] Arrived [facility] Comment on above: Arrived Start: 06-05-2024 Influenza vaccination Influenza Vaccine (#1) [facility] Start: 2016 Administration of varicella zoster vaccine Zoster (Shingles) Vaccine (1 of 2) [facility] Start: 1985 DTaP,Tdap and Td Vaccines (1 - Tdap) DTaP,Tdap and Td Vaccines (1 - Tdap) [facility] Start: 1984 Adult BMI Follow Up Plan Adult BMI Follow Up Plan [facility] Start: 1978 Depression Screening Depression Screening [facility] Start: 1978 Tobacco Screening Tobacco Screening [facility] Start: 1966 Screening for malignant neoplasm of colon [facility] Start: 1966 Tobacco Counseling Tobacco Counseling [facility] Immunizations Immunization Date Immunization Notes Care Provider Fa cility 06-06-2025 tetanus and diphther ia toxoids, adsorbed, preservative free, for adult use (5 Lf of tetanus toxoid and 2 Lf of diphtheria toxoid) Carlos Enrique Maguire II Work Phone: [facility] 06-22-2020 influenza, injectabl e, quadrivalent, preservative free Michael Kong REFINING MACHINE OPERATOR Work Phone: [facility] 06-22-2020 influenza virus vaccine, unspecified formulation Michael Kong REFINING MACHINE OPERATOR Work Phone: [facility] 07-08-2019 influenza, injectabl e, quadrivalent, contains preservative Michael Kong REFINING MACHINE OPERATOR Work Phone: [facility] 06-22-2017 seasonal influenza, intradermal, preservative free Michael Kong REFINING MACHINE OPERATOR Work Phone: [facility] 07-06-2015 seasonal influenza, intradermal, preservative free Michael Kong REFINING MACHINE OPERATOR Work Phone: [facility] 07-07-2014 seasonal influenza, intradermal, preservative free Michael Kong REFINING MACHINE OPERATOR Work Phone: [facility] Payers Date Payer Category Payer Unknown [id number] 2024 Medicare HMO [id number] 2023 Medicare (Managed Care) 1.2. [id number] 2023 Unknown [id number] 2023 Self-pay [address] [facility] [id number] 1966 Unknown [id number] 2.16.840.1.981105.3.579.2. 593 1966 Unknown [id number] 2.16.840.1.118522.3.579.2. 593 1966 Unknown [id number] 2.16.840.1.416130.3.579.2. 593 1966 Unknown [id number] 2.16.840.1.887204.3.579.2. 1286 1966 Unknown [id number] 2.16.840.1.074206.3.579.2. 1285 1966 Unknown [id number] 2.16.840.1.609507.3.579.2. 1285 1966 Unknown [id number] 2.16.840.1.702117.3.579.2. 1285 1966 Unknown [id number] 2.16.840.1.165240.3.579.2. 1285 1966 Unknown [id number] 2.16.840.1.151339.3.579.2. 1285 1966 Unknown [id number] 2.16.840.1.583388.3.579.2. 1285 1966 Unknown [id number] 2.16.840.1.113882.3.579.2. 1285 1966 Unknown [id number] 2.16.840.1.097259.3.579.2. 1285 1966 Unknown [id number] 2.16.840.1.753665.3.579.2. 1285 1966 Unknown [id number] 2.16.840.1.170828.3.579.2. 1285 1966 Unknown [id number] 2.16.840.1.403858.3.579.2. 1285 1966 Unknown [id number] 2.16.840.1.238924.3.579.2. 9 1966 Unknown [id number] 2.16.840.1.830796.3.579.2. 9 1966 Unknown [id number] 2.16.840.1.433942.3.579.2. 1258 1966 Unknown [id number] 2.16.840.1.953623.3.579.2. 1258 1966 Unknown [id number] 2.16.840.1.405528.3.579.2. 1258 1966 Unknown [id number] 2.16.840.1.718655.3.579.2. 1258 1966 Unknown [id number] 2.16.840.1.639484.3.579.2. 1258 1966 Unknown [id number] 2.16.840.1.489260.3.579.2. 1258 1966 Unknown [id number] 2.16.840.1.571480.3.579.2. 1258 1966 Unknown [id number] 2.16.840.1.187427.3.579.2. 1258 1966 Unknown [id number] 2.16.840.1.930314.3.579.2. 1258 1966 Unknown [id number] 2.16840.1.189972.3.579.2. 1258 1966 Unknown [id number] 2.16.840.1.661918.3.579.2. 9 1959 Medicaid [id number] 1958 Medicare [id number] Unknown [id number] 2.16.840.1.832605.3.579.2. 531 Social History Date Type Detail Facility Unknown if ever smoked [employer] Other Start: 05-11-2024 End: 06-07-2025 Sex Assigned At [facility] [employer] Other Start: 12-09-2023 End: 06-07-2025 Tobacco smoking status NHIS Smokes tobacco daily [facility] History of tobacco use Cigarette Smoker [facility] Start: 12-09-2023 End: 06-07-2025 Tobacco use and exposure Smokeless tobacco non-user [facility] Start: 05-11-2024 End: 06-21-2025 Alcoholic beverage intake Lifetime non-drinker (finding) [facility] Start: 05-11-2024 End: 06-07-2025 History of Social function [facility] Start: 12-09-2023 Alcohol Comment Caffeine intak e : chocolate [facility] Start: 1965 Sex assigned at Not on file [facility] Tobacco smoking status VTIS Tobacco smoking consumption unknown [facility] Childcare Unknown [facility] Start: 05-10-2015 Sex Male (finding) [facility] Start: 1965 Sex Assigned At Male F [facility] Functional Status Date Assessment Result Facility 06-21-2025 Patient Health Quest ionnaire 2 item (PHQ-2) [Reported] [facility] 06-21-2025 PHQ-9 quick depressi on assessment panel [Reported.PHQ] [facility] 06-15-2025 Patient Health Quest ionnaire 2 item (PHQ-2) [Reported] [facility] 06-15-2025 PHQ-9 quick depressi on assessment panel [Reported.PHQ] [facility] 05-24-2025 Patient Health Quest ionnaire 2 item (PHQ-2) [Reported] [facility] 05-24-2025 PHQ-9 quick depressi on assessment panel [Reported.PHQ] [facility] 02-28-2025 Patient Health Quest ionnaire 2 item (PHQ-2) [Reported] [facility] 02-06-2025 Patient Health Quest ionnaire 2 item (PHQ-2) [Reported] [facility] Clinical Notes 08-04-2023 to 06-21-2025 Haley Freedman NP - 06/21/2025 11:30 AM EDTTelephone Encounter - Steffi Israel RN - 06/16/2025 1:40 PM EDTTelephone Encounter - Gabi Omalley PA-C - 06/16/2025 1:40 PM EDT Note Date & Type Note Facility 06-21-2025 History of Presen t illness Narrative Images from the original note were not included. Subjective Patient ID: Ole Stephens is a 59 y.o. male who presents for No chief complaint on file.. Ole presents today for issues with fluid around his heart. Pain management will not do anything until they speak with a provider. He see's pain management at [facility] in [place]. Pt needs surgical clearance injection. See echo results: Left Ventricle: Left ventricle is small. Systolic function is normal with an ejection fraction of 60-65%. The quantitative EF by 2D Go biplane is 65%. Normal diastolic function is present. Right Ventricle: Right ventricular size appears normal. There is no significant valvular stenosis or regurgitation. Pericardium: There is a small fluid pericardial effusion. There is a left pleural effusion. Pt does not want to pursue calcine furnace loader at this time. WBC 9.0 Hgb 12.8 [...] by mouth Daily Do not crush, chew, or split. 100 tablet 3 predniSONE (Deltasone) 10 MG tablet Take 4 tablets (40 mg) by mouth Daily for 4 days, THEN 3 tablets (30 mg) Daily for 4 days, THEN 2 tablets (20 mg) Daily for 4 days, THEN 1 tablet (10 mg) Daily for 4 days. 40 tablet 0 sertraline (Zoloft) 100 [...] 10/2016 Fall Degenerative disease of basal ganglia ([facility]) Diaphoresis Dysfunction of eustachian tube Esophageal reflux Gastritis and gastroduodenitis Hyperlipidemia Hypothyroidism Loss of appetite Seizure ([facility]) Vitamin B 12 deficiency Past Surgical History: [...] follow-ups on file. documented in this encounter [facility] 06-16-2025 Miscellaneous Notes Patient called office today to report that he was seen by cardiology and placed on new medications. He states he had an echo that showed water around my heart . New medications include 40 mg Prednisone taper, Carafate, Doxycycline (started 2 days ago), and a steroid cream that he has not oyster picker yet from the pharmacy. Doxy and topical is for a skin infection on his chin. Patient is scheduled for Bilateral T 3/4 4/5 MBB 06/23/2025. We will need cardio clearance prior to procedure Call placed to patient to obtain the name of patient's calcine furnace loader. He states he does not have a calcine furnace loader. Patient's PCP, Haley Freedman NP, ordered the echo. Patient's upcoming procedure is without sedation. How would you like to proceed? Patient called office and repeated information noted in previous encounters related to echo results. He states he has to have his injection this week as he is so much pain. 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 Patient states that if he not able to have his scheduled injection this week he will go to the ED. He then ended the call. Patient called office again and states he called and scheduled an appointment with Haley Freedman CNP tomorrow at 11:00 AM. Patient was again informed that provider will be made of aware of previous conversations. He is informed that a nurse will call him with an update tomorrow once provider response. He states it's just a little water around my heart . If PCP will clear him that is sufficient Clearance letter sent to his PCP, Haley Freedman NP. Resent surgical clearance to haley freedman. They did not send it back. They sent a referral, documentation stating pt requested referral Pt states his PCP office received our surgical clearance letter but they never addressed it. No one is back in office until 1 pm and they may not sign it by the time this office closes at 3pm. Pt states he went off with PCP office, yelling & cursing at them so he's not sure if they will even send it back to us. I told him I'll wait until at least 4 pm to give PCP more time to return clearance. If I don't received anything I'll call him and let him know if he can have procedure or not. Pt is scheduled for Bilateral T 3/4, 4/5 MBB, local. Clearance received from PCP. Called pt to inform him and that he can proceed with procedure. No answer. Will try again later. documented in this encounter [facility] 06-16-2025 Telephone encounter Note Patient called office today to report that he was seen by cardiology and placed on new medications. He states he had an echo that showed water around my heart . New medications include 40 mg Prednisone taper, Carafate, Doxycycline (started 2 days ago), and a steroid cream that he has not oyster picker yet from the pharmacy. Doxy and topical is for a skin infection on his chin. Patient is scheduled for Bilateral T 3/4 4/5 MBB 06/23/2025. [facility] 06-16-2025 Telephone encounter Note We will need cardio clearance prior to procedure [facility] 06-16-2025 Telephone encounter Note Call placed to patient to obtain the name of patient's calcine furnace loader. He states he does not have a calcine furnace loader. Patient's PCP, Haley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 metabolic panel Standing Status: Future Number of Occurrences: 1 Expected Date: 02/28/2025 Expiration Date: 02/28/2026 Print requisition?: No CBC Standing Status: Future Number of Occurrences: 1 Expected Date: 02/28/2025 Expiration Date: 02/28/2026 Print requisition?: No Ambulatory referral to Pain Medicine Standing Status: Future Expected Date: 02/28/2025 Expiration Date: 08/31/2025 Referral Priority: Routine Referral Type: Consultation Referral Reason: Specialty Services Required Referred to Provider: Kota Petty MD Requested Specialty: Pain Medicine Number of Visits Requested: 1 1. Reactive depression (situational) (CMS/[facility]) Medication as directed. Verbalizes understanding of the need to be seen in the ER for suicidal/homicidal ideation, excessive stress, elevated blood pressure or palpitations. Pt offers understanding of treatment plan. I discussed the side effects of the medications described and to seek medical careif they arise. Discussed stress mgmt strategies, social support and importance of healthy diet, exercise and regular sleep habits. Advised on relaxation methods to decrease anxiety and depression. - sertraline (Zoloft) 100 MG tablet; Take 2 tablets (200 mg) by mouth at bedtime Dispense: 60 tablet; Refill: 2 2. Muscle spasm Start the above medications as directed. Advised of potential side effects of the steroid. Patient is to take the steroid with food. Do not take any NSAIDs while on Prednisone, Tylenol ok prn. Can take the Tizanidine prn before bed, cautioned it may cause drowsiness. Encouraged gentle heat to area.Encouraged gentle stretches. Handout provided. Advised patient that if symptoms do not improve imaging may be required for further evaluation, PT referral may also be appropriate. - orphenadrine (Norflex) 100 MG 12 hr tablet; Take 1 tablet (100 mg) by mouth 2 (two) times a day as needed for muscle spasms Do not crush, chew, or split. Dispense: 60 tablet; Refill: 1 3. Chronic bilateral thoracic back pain (Primary) Await referral to pain management - Ambulatory referral to Pain Medicine; Future 4. Vitamin B12 deficiency Await lab values - Vitamin B12; Future - Vitamin B12 5. Acquired hypothyroidism (CMS/HCC) This is a chronic medical condition that is stable since last assessment. No changes in treatment are suggested at this time. - TSH W/REFLEX TO FT4; Future - Comprehensive metabolic panel; Future - TSH W/REFLEX TO FT4 - Comprehensive metabolic panel 6. Mixed hyperlipidemia (CMS/HCC) This is a chronic medical condition that is stable since last assessment. No changes in treatment are suggested at this time. - Lipid panel; Future - Lipid panel 7. Orthostatic hypotension This is a chronic medical condition that is stable since last assessment. No changes in treatment are suggested at this time. - Comprehensive metabolic panel; Future - CBC; Future - Comprehensive metabolic panel - CBC 8. Weight loss Encouraged supplements. Await TSH level - Comprehensive metabolic panel; Future - Comprehensive metabolic panel 9. Screening for prostate cancer Await lab - PSA; Future - PSA 10. Seizure (CMS/HCC) This is a chronic medical condition that is stable since last assessment. No changes in treatment are suggested at this time. 11. Palpitations This is a chronic medical condition that is stable since last assessment. No changes in treatment are suggested at this time. 12. Chronic idiopathic constipation Drink plenty of fluids, enough so that your urine is light yellow or clear like water. At least 1/2body weight in water each day. Include high-fiber foods in your diet each day. These include fruits, vegetables, beans, and whole grains. Get at least 30 minutes of exercise on most days of the week.Take a fiber supplement, such as Citrucel or Metamucil, every day. Probiotics recommended also. Schedule time each day for a bowel movement. A daily routine may help. Take your time having your bowelmovement. - XR ABDOMEN 2 VIEW; Future 13. Other specified anxiety disorders Take medication as directed. Verbalizes understanding of the need to be seen in the ER for excessive stress, elevated blood pressure or palpitations. Advised on relaxation methods to decrease anxietyand depression. Pt offers understanding of treatment plan. Pt does not feel that the anxiety medication has been effective. Will increase Ativan 1mg three times a day as needed 14. Bipolar disorder, in partial remission, most recent episode mixed (CMS/HCC) Pt has stopped all of his medications. He feels that he is on too much medication. 15. History of drug abuse in remission This is a chronic medical condition that is stable since last assessment. No changes in treatment are suggested at this time. 16. History of ETOH abuse This is a chronic medical condition that is stable since last assessment. No changes in treatment are suggested at this time. 17. Persistent depressive disorder (CMS/HCC) Medication as directed. Verbalizes understanding of the need to be seen in the ER for suicidal/homicidal ideation, excessive stress, elevated blood pressure or palpitations. Pt offers understanding of treatment plan. I discussed the side effects of the medications described and to seek medical careif they arise. Discussed stress mgmt strategies, social support and importance of healthy diet, exercise and regular sleep habits. Advised on relaxation methods to decrease anxiety and depression. 18. Routine general medical examination at health care facility Reviewed all relevant preventative screenings with the patient in detail. Medicare Wellness form completed and will be scanned into patient's chart. All needed testing was ordered. Will continue withyearly Medicare Wellness exams. 19. Generalized abdominal pain Await results of xray 20. Acute bilateral low back pain without sciatica Await results of xray. He has been referred to pain management - XR lumbar spine 4+ views w flexion extension; Future 21. History of smoking for more than 10 years Discussed smoking cessation with the patient. Encouraged patient to cut back and soon quit smoking.Health risks of smoking, and benefits of quitting reviewed with the patient. - CT lung screening low dose; Future 22. Screening for lung cancer Await results - CT lung screening low dose; Future 23. Continuous tobacco abuse Discussed smoking cessation with the patient. Encouraged patient to cut back and soon quit smoking.Health risks of smoking, and benefits of quitting reviewed with the patient. - CT lung screening low dose; Future 24. Personal history of nicotine dependence Discussed smoking cessation with the patient. Encouraged patient to cut back and soon quit smoking.Health risks of smoking, and benefits of quitting reviewed with the patient. - CT lung screening low dose; Future 25. Medicare annual wellness visit, subsequent Reviewed all relevant preventative screenings with the patient in detail. Medicare Wellness form completed and will be scanned into patient's chart. All needed testing was ordered. Will continue withyearly Medicare Wellness exams. Electronically signed by Haley Freedman NP on February 28, 2025 documented in this encounterUniversity Health [facility] Medical [id number] History of Present illness Narrative* SHENG Carrasco - 02/06/2025 8:30 AM EDT Images from the original note were not included. HPI Constipation Additional comments: States this has been going on forever and it he is taking Miralax with some relief. Has never tried anything else. Back Pain Additional comments: Admits lower back pain for 3 days. Describes pain as an ache, he can turn his back a certain way and it will crack and that will relieve the pain some. Rates pain 7/10. He has been taking a muscle relaxer, he has 2 on his med list and he is not sure which one he is taking and also diclofenac and tramadol. Last edited by SHENG Carrasco on 02/06/2025 8:46 AM. Subjective Patient ID: Ole Stephens is a 59 y.o. male who presents for vomiting. Ole is present today for evaluation of vomiting. Admits started 3 days ago, spicy foods seem toaggravate it and cannot seem to keep anything down, nausea. He has not been taking anything OTC to help with his symptoms. Spicy foods and dairy aggravate his symptoms. States he drinks chocolate milk. Last time he had a BM was about 2 days ago. Current Outpatient Medications on File Prior to Visit Medication Sig Dispense Refill atorvastatin (Lipitor) 20 MG tablet Take 1 tablet (20 mg) by mouth Daily 30 tablet 2 buPROPion XL (Wellbutrin XL) 150 MG 24 hr tablet Take 1 tablet (150 mg) by mouth in the morning. Donot crush, chew, or split.. 30 tablet 2 busPIRone (Buspar) 5 MG tablet Take 2 tablets (10 mg) by mouth in the morning and 2 tablets (10 mg)in the evening and 2 tablets (10 mg) before bedtime. 180 tablet 0 diclofenac (Voltaren) 75 MG EC tablet Take 1 tablet (75 mg) by mouth in the morning and 1 tablet (75 mg) before bedtime. 180 tablet 3 levothyroxine (Synthroid, Levoxyl) 100 MCG tablet Take 1 tablet (100 mcg) by mouth in the morning. Take before meals. 100 tablet 3 LORazepam (Ativan) 0.5 MG tablet Take 1 tablet (0.5 mg) by mouth 2 (two) times a day as needed for anxiety 60 tablet 2 mirtazapine (Remeron) 30 MG tablet Take 1 tablet (30 mg) by mouth at bedtime 30 tablet 2 orphenadrine (Norflex) 100 MG 12 hr tablet Take 1 tablet (100 mg) by mouth 2 (two) times a day as needed for muscle spasms Do not crush, chew, or split. 60 tablet 1 sertraline (Zoloft) 100 MG tablet Take 2 tablets (200 mg) by mouth at bedtime 60 tablet 2 tiZANidine (Zanaflex) 4 MG tablet TAKE 1 TABLET(4 MG) BY MOUTH EVERY 8 HOURS NEEDED FOR MUSCLE SPASMS 90 tablet 0 traMADol (Ultram) 50 MG tablet Take 1 tablet (50 mg) by mouth every 6 (six) hours if needed for severe pain 28 tablet 0 No current facility-administered medications [...] History: Diagnosis Date Allergies Anxiety Bipolar disorder Chest discomfort Closed head injury 10/2016 Fall Degenerative disease of basal ganglia (CMS/HCC) Diaphoresis Dysfunction of eustachian tube Esophageal reflux Gastritis and gastroduodenitis Hyperlipidemia (CMS/HCC) Hypothyroidism (CMS/HCC) Loss of appetite Seizure (CMS/HCC) Vitamin B 12 deficiency Past Surgical History: Procedure Laterality Date HERNIA REPAIR 1980 Visit Vitals BP 122/84 Pulse 54 Temp 97.3 F Resp 16 Ht 5' 9 Wt 115 lb 12.8 oz SpO2 98% BMI 17.10 kg/m Smoking Status Every Day BSA 1.6 m Review of Systems Constitutional: Positive for fatigue. Negative for chills and fever. Respiratory: Negative for cough, shortness of breath and wheezing. Cardiovascular: Negative for chest pain, palpitations and leg swelling. Gastrointestinal: Positive for constipation, nausea and vomiting. Negative for abdominal pain and diarrhea. Musculoskeletal: Positive for back pain. Skin: Negative for rash. Objective Physical Exam Constitutional: General: He is not in acute distress. Comments: Thin, appears fatigued HENT: Head: Normocephalic and atraumatic. Eyes: General: No scleral icterus. Cardiovascular: Rate and Rhythm: Normal rate and regular rhythm. Heart sounds: No murmur heard. Pulmonary: Effort: Pulmonary effort is normal. No respiratory distress. Breath sounds: Wheezing (Mild inspiratory) present. No rhonchi or rales. Abdominal: General: Bowel sounds are decreased. Palpations: Abdomen is soft. Tenderness: There is generalized abdominal tenderness (Mild diffuse). There is no guarding. Musculoskeletal: General: No swelling. Lumbar back: Tenderness (Paraspinous) present. No bony tenderness. Skin: General: Skin is warm and dry. Neurological: General: No focal deficit present. Mental Status: He is alert and oriented to person, place, and time. Psychiatric: Mood and Affect: Mood normal. Behavior: Behavior normal. Assessment/Plan Diagnoses and all orders for this visit: Nausea and vomiting, unspecified vomiting type - ondansetron ODT (Zofran-ODT) 4 MG disintegrating tablet; Take 1 tablet (4 mg) by mouth every 8 (eight) hours if needed for nausea or vomiting for up to 7 days Reassurance given that this is most likely viral and should continue to gradually improve. Start the above medication as needed for nausea. Increase water intake, sipping clear fluids frequently, getplenty of rest. Keep to a bland diet. Can take Tylenol prn for any discomfort or fever. Wash hands often, and avoid sharing food/drinks. Follow up in our office if no improvement in one week. Chronic idiopathic constipation Pt admits he does not drink water. Encouraged him to gradually increase his water intake. Avoid Miralax until he is feeling better as that will dehydrate him further. Limit dairy intake. Acute bilateral low back pain without sciatica Encouraged gentle heat to the area as needed. Can take a muscle relaxer once his stomach has calmeddown. Follow up if this does not improve. He does see a chiropractor as needed. Follow up for Appointment As Scheduled. documented in this encounterUniversity Health [facility] Medical [id number] Telephone encounter Note* Telephone Encounter - Abi Diego - 01/26/2025 11:18 AM EDT traMADol (Ultram) 50 MG tablet [facility] [id number] Miscellaneous Notes* Telephone Encounter - Abi Diego - 01/26/2025 11:18 AM EDT traMADol (Ultram) 50 MG tablet [facility] documented in this encounterUniversity Health Truman Medical [id number] History of Present illness Narrative* MORRIS VEGA - 11/29/2024 11:00 AM EST Images from the original note were not included. Subjective Patient ID: Ole Stephens is a 59 y.o. male who presents for medication F/U. Ole presents today for a F/U for anxiety medication. Current Outpatient Medications on File Prior to Visit Medication Sig Dispense Refill atorvastatin (Lipitor) 20 MG tablet Take 1 tablet (20 mg) by mouth Daily 30 tablet 2 buPROPion XL (Wellbutrin XL) 150 MG 24 hr tablet Take 1 tablet (150 mg) by mouth in the morning. Donot crush, chew, or split.. 30 tablet 2 busPIRone (Buspar) 5 MG tablet Take 2 tablets (10 mg) by mouth in the morning and 2 tablets (10 mg)in the evening and 2 tablets (10 mg) before bedtime. 180 tablet 0 diclofenac (Voltaren) 75 MG EC tablet Take 1 tablet (75 mg) by mouth in the morning and 1 tablet (75 mg) before bedtime. 60 tablet 2 levothyroxine (Synthroid, Levoxyl) 100 MCG tablet Take 1 tablet (100 mcg) by mouth in the morning. Take before meals. 100 tablet 3 LORazepam (Ativan) 0.5 MG tablet Take 1 tablet (0.5 mg) by mouth Daily as needed for anxiety 30 tablet 2 mirtazapine (Remeron) 30 MG tablet Take 1 tablet (30 mg) by mouth at bedtime 30 tablet 2 sertraline (Zoloft) 100 MG tablet Take 2 tablets (200 mg) by mouth at bedtime 60 tablet 2 tiZANidine (Zanaflex) 4 MG tablet Take 1 tablet (4 mg) by mouth every 8 (eight) hours if needed formuscle spasms 90 tablet 0 No current facility-administered medications on [...] Surgical History: Procedure Laterality Date HERNIA REPAIR 1980 Visit Vitals BP 122/74 Pulse 56 Resp 17 Ht 5' 9 Wt 113 lb SpO2 99% BMI 16.69 kg/m Smoking Status Every Day BSA 1.58 m Review of Systems Objective Physical Exam Assessment/Plan No follow-ups on file. * Haley Freedman NP - 11/29/2024 11:00 AM EST Subjective Patient ID: Ole Stephens is a 59 y.o. male who presents for No chief complaint on file.. Pt is here for follow up on anxiety medications. He had order for 1 time a day as needed but has such severe anxiety that he needs to take an ativan at night. He has had a 5 pound weight loss. He reports that this is due to anxiety and pain. Anxiety Presents for follow-up visit. Symptoms include decreased concentration, excessive worry, irritability, nervous/anxious behavior and restlessness. Symptoms occur constantly. The severity of symptoms is severe and causing significant distress. The patient sleeps 8 hours per night. The quality of sleep is good. Nighttime awakenings: none. Compliance with medications is 76-100%. Back Pain This is a chronic problem. The current episode started more than 1 year ago. The problem occurs constantly. The problem has been gradually worsening since onset. The pain is present in the lumbar spine and thoracic spine. The quality of the pain is described as aching. The pain is at a severity of 8/10. The pain is severe. The pain is The same all the time. Exacerbated by: nothing mkes it worse. Stiffness is present All day. He has tried analgesics, heat, muscle relaxant, NSAIDs and walking forthe symptoms. The treatment provided mild relief. Review of Systems Constitutional: Positive for irritability. Musculoskeletal: Positive for back pain. Psychiatric/Behavioral: Positive for decreased concentration. The patient is nervous/anxious. Objective Physical Exam Vitals reviewed. Constitutional: Appearance: Normal appearance. HENT: Head: Normocephalic. Nose: Nose normal. Mouth/Throat: Mouth: Mucous membranes are moist. Pharynx: Oropharynx is clear. Eyes: Conjunctiva/sclera: Conjunctivae normal. Cardiovascular: Rate and Rhythm: Normal rate. Pulmonary: Effort: Pulmonary effort is normal. Musculoskeletal: General: Tenderness present. Skin: General: Skin is warm and dry. Neurological: General: No focal deficit present. Mental Status: He is alert and oriented to person, place, and time. Psychiatric: Mood and Affect: Mood normal. Behavior: Behavior normal. Thought Content: Thought content normal. Assessment/Plan Diagnoses and all orders for this visit: Severe back pain - diclofenac (Voltaren) 75 MG EC tablet; Take 1 tablet (75 mg) by mouth in the morning and 1 tablet(75 mg) before bedtime. - Ambulatory referral to Neurosurgery; Future - traMADol (Ultram) 50 MG tablet; Take 1 tablet (50 mg) by mouth every 6 (six) hours if needed for moderate pain or severe pain for up to 7 days Discussed risks of this class of medication including the potential for abuse, reliance. Discussed importance of properly storing and disposing of the medication. Reviewed the goals of treatment, including improving pain control and improving functional status. Medication choice and dosage is appropriate for patient's current medical conditions. Reviewed the rules and regulations surrounding prescription of opioids and compliance at length with the patient. Patient will be required to be seen in our office at least every three months for monitoring. At each follow up visit I will reassess thepatient's need for the medication. Patient is to have this medication prescribed only through this office. Failure to follow the rules and regulations will result in tapering and discontinuation of medications if applicable. Patient verbalized understanding. OARRS Report was reviewed for this patient. Anxiety - LORazepam (Ativan) 0.5 MG tablet; Take 1 tablet (0.5 mg) by mouth 2 (two) times a day as needed for anxiety Take medication as directed. Verbalizes understanding of the need to be seen in the ER for excessive stress, elevated blood pressure or palpitations. Advised on relaxation methods to decrease anxietyand depression. Pt offers understanding of treatment plan. documented in this encounterUniversity Health Truman Medical [id number] History of Present illness Narrative* Michael Kong NP - 11/09/2024 2:00 PM EST Images from the original note were not [...] (150 mg) by mouth in the morning. Donot crush, chew, or split.. 30 tablet 1 [...] Surgical History: Procedure Laterality Date HERNIA REPAIR 1980 Visit Vitals Smoking Status Every Day Review [...] of voltaren. He denies any side effects. Hewill continue this medication without changes. - diclofenac (Voltaren) 75 MG EC tablet; Take 1 tablet (75 mg) by mouth in the morning and 1 tablet(75 mg) before bedtime. Dispense: 60 tablet; Refill: 2 2. Reactive depression (situational) (CMS/HCC) He continues to report feeling anxious. The buspirone is increased today to 10 mg TID. He continueson wellbutrin xl as ordered. He continues on [...] tablet (150 mg) by mouth in the morning.Do not crush, chew, or split.. Dispense: 30 [...] The norflex previously ordered has been discontinued dtcost. - tiZANidine (Zanaflex) 4 MG tablet; Take [...] No follow-ups on file. documented in this [facility]02-05-2025 Instructions* Patient Instructions* Michael Kong NP - 11/09/2024 2:00 PM EST Refills sent today. documented in this [facility]01-10-2025 Telephone encounter Note* Telephone Encounter - Michael Kong NP - 10/14/2024 11:35 AM EST Please call the pt and notify that orthopedics recommended pain management. If he is ok with going to pain management please send the referral. [facility] [id number] Miscellaneous Notes* Telephone Encounter - Michael Kong NP - 10/14/2024 11:35 AM EST Please call the pt and notify that orthopedics recommended pain management. If he is ok with going to pain management please send the referral. * Telephone Encounter - Marsha Schofield MA - 10/03/2024 9:27 AM EST Ortho office states they are denying the referral please refer to [facility] per ortho documented in this [facility]12-30-2024 Telephone encounter Note* Telephone Encounter - Marsha Schofield MA - 10/03/2024 9:27 AM EST Ortho office states they are denying the referral please refer to [facility] per ortho [facility] [id number] History of Present illness Narrative* Michael Kong NP - 09/29/2024 1:00 PM EST Images from the original note were not [...] day pt is having microwave dinners like [employer] stated No problems with going to the [...] by mouth in the morning and 1 tablet(75 mg) before bedtime. Dispense: 60 tablet; Refill: [...] tablet (150 mg) by mouth in the morning.Do not crush, chew, or split.. Dispense: 30 [...] No follow-ups on file. documented in this [facility]12-26-2024 Instructions* Patient Instructions* Michael Kong NP - 09/29/2024 1:00 PM EST Norflex continues. Voltaren continues. Wellbutrin xl is started. Alprazolam is started x 10 days only. documented in this [facility]10-31-2023 Evaluation note* Encounter Date Diagnosis Assessment Notes Treatment Notes Treatment Clinical Notes Jul, Blister (nonthermal) of oral cavity, initial encounter (ICD-10 - S00.522A) Pt to take meds as prescribed. Take abx with food. No other nsaids while on anti-inflammatory. Pt to f/u mini with dentist for further management. Educated pt on proper brushing technique and dental care. Avoid chewing on that side. May use oral gel on the area. Pt understood agreed to treatment plan. 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) Weight loss Loss of weight [facility] Diagnosis Anxiety- Primary Anxiety state, unspecified Severe [...] mixed (CMS/HCC) [facility]* Diagnosis Severe back pain Anxiety Anxiety state, unspecified [facility]* Diagnosis Severe back pain [facility]* Diagnosis Severe back pain [facility]* Diagnosis Nausea and vomiting, unspecified vomiting type- Primary Chronic idiopathic constipation Unspecified constipation Acute bilateral low back pain without sciatica [facility]* Diagnosis Chronic bilateral thoracic back pain- Primary Reactive depression (situational) (CMS/HCC) Dysthymic disorder Muscle spasm Spasm of muscle Vitamin B12 deficiency Other B-complex deficiencies Acquired hypothyroidism (CMS/HCC) Unspecified hypothyroidism Mixed hyperlipidemia (CMS/HCC) Mixed hyperlipidemia Orthostatic hypotension Weight loss Loss of weight Screening for prostate cancer Special screening for malignant neoplasm of prostate Seizure (CMS/HCC) Other convulsions Palpitations Chronic idiopathic constipation Unspecified constipation Other specified anxiety disorders Bipolar disorder, in partial remission, most recent episode mixed ([facility]) History of drug abuse in remission History of ETOH abuse Persistent depressive disorder ([facility]) Routine general medical examination at health care facility Routine general medical examination at a health care facility Generalized abdominal pain Abdominal pain, generalized Acute bilateral low back pain without sciatica History of smoking for more than 10 years Screening for lung cancer Continuous tobacco abuse Personal history of nicotine dependence Medicare annual wellness visit, subsequent [facility]* Diagnosis Anxiety Anxiety state, unspecified Severe back pain [facility]* Diagnosis Rib pain- Primary Unspecified chest pain [facility]* Diagnosis Rib pain- Primary Unspecified chest pain Acute cough Chronic bilateral thoracic back pain [facility]* Diagnosis Thoracic spondylosis without myelopathy- Primary Lumbar spondylosis Lumbosacral spondylosis without myelopathy [facility] Diagnosis Severe back pain [facility]* Diagnosis Anxiety Anxiety state, unspecified [facility]* Diagnosis Anxiety Anxiety state, unspecified [facility]* Diagnosis Severe back pain [facility]* Diagnosis Thoracic spondylosis without myelopathy- Primary Lumbar spondylosis Lumbosacral spondylosis without myelopathy Thoracic spondylosis without myelopathy- Primary Thoracic spondylosis without myelopathy [facility] noteNo assessment information available [facility] Work Phone: Evaluation note* Diagnosis Anxiety Anxiety state, unspecified Severe back pain [facility]* Diagnosis Severe back pain Anxiety Anxiety state, unspecified [facility]* Diagnosis Thoracic spondylosis without myelopathy Lumbar spondylosis Lumbosacral spondylosis without myelopathy [facility]* Diagnosis SOB (shortness of breath)- Primary Shortness of breath Nausea and vomiting, unspecified vomiting type Muscle spasm Spasm of muscle Abrasion Abrasion or friction burn of other, multiple, and unspecified sites, without mention of infection Gastroesophageal reflux disease with esophagitis without hemorrhage Murmur, heart Undiagnosed cardiac murmurs [facility]* Diagnosis Thoracic spondylosis without myelopathy- Primary Thoracic spondylosis without myelopathy- Primary Thoracic spondylosis without myelopathy [facility]* Diagnosis Anxiety Anxiety state, unspecified documented in [facility] encounter [facility]* Diagnosis Weight loss- Primary Loss of weight Gastric pain Dyspepsia and other specified disorders of function of stomach Nausea and vomiting, unspecified vomiting type Dysphagia, unspecified type Pericardial effusion ([facility]-HCC) Unspecified disease of pericardium Skin infection Unspecified local infection of skin and subcutaneous tissue [facility]* Diagnosis Pre-operative clearance- Primary Unspecified pre-operative examination documented in this encounter [facility] HealthcareInstructionsNot on filedocumented in this encounterProMediak Health SystemInstructionsNot on filedocumented in this encounterProFirelands [facility] SystemInstructionsNot on filedocumented in this encounterProFirelands [facility] SystemInstructionsNot on filedocumented in this encounterProFirelands [facility] System Reason for referral (narrative)No reason for referral information available [facility] Work Phone: Summary Purpose Family History No Family History Records FoundNo Family History Records FoundNo Family History Records FoundNo Family History Records FoundNo Family History Records FoundNo Family History Records Found Advance Directives Advance Directive Response Recorded Date/ Time Advance Directives No May 17, 2025 9:41am Chief Complaint and Reason for Visit Chief Complaint Admit Date Rash on Chin May 17, 2025 9: 43am Chief Complaint Admit Date Rash on Chin May 17, 2025 9: 43am wants tetanus, puncture on hand Septembe r 2024 9:02am Reason for Visit Admit Date Impetigo May 17, 2025 9: 43am Chief Complaint Admit Date Rash on Chin May 17, 2025 9: 43am wants tetanus, puncture on hand Septembe r 2024 9:02am infection on chin June 13, 2025 10:03am Reason for Visit Admit Date Impetigo May 17, 2025 9: 43am Puncture wound of left hand June 9:02am Additional Source Comments (unrecognized sect ion and content) No Status Records FoundNo Status Records FoundNo Status Records FoundNo Status Records FoundNo Status Records FoundNo Status Records Found INFORMATION SOURCE (unrecogn ized section and content) DATE CREATED AUTHOR 12/07/2019 [facility] DATE CREATED AUTHOR AUTHOR'S ORGANIZ ATION 01/13/2025 [facility] DATE CREATED AUTHOR AUTHOR'S ORGANIZ ATION 03/04/2025 [facility] DATE CREATED AUTHOR AUTHOR'S ORGANIZ ATION 05/27/2025 [facility] DATE CREATED AUTHOR AUTHOR'S ORGANIZ ATION 06/11/2025 [facility] DATE CREATED AUTHOR AUTHOR'S ORGANIZ ATION 06/22/2025 [facility] EPIC REASON FOR VISIT (unrecogniz ed section and content) Reason Comments Back Pain Reason Comments Med Refill Reason Onset Date Comments Med Refill 01/26/2025 Reason Comments Constipation States this has been going on forever and it he is taking Miralax with some relief. Has never tried anything else. Back Pain Admits lower back pa in for 3 days. Describes pain as an ache, he can turn his back a certain way and it will crack and that will relieve the pain some. Rates pain 10. He has been taking a muscle relaxer, he has 2 on his med list and he is not sure which one he is taking and also diclofenac and tramadol. Reason Onset Date Comments Med Refill 04/17/2025 Reason Onset Date Comments Med Refill 05/22/2025 Care Teams (unrecognized sec tion and content) Body Stylist Relationship Specialty Start Date End Date Carlos Enrique Maguire MD [address] [facility] [address] [place] [address] PCP - ACO Reach 02/26/23 Carlos Enrique Maguire MD [address] [facility] [address] [place] [address] PCP - General Internal Medicine 02/10/23 Body Stylist Relationship Specialty Start Date End Date Carlos Enrique Maguire MD [address] [facility] [address] [place] [address] PCP - ACO Reach 02/26/23 Carlos Enrique Maguire MD [address] [facility] [address] [place] [address] PCP - General Internal Medicine 02/10/23 Body Stylist Relationship Specialty Start Date End Date Carlos Enrique Maguire MD [address] [facility] [address] [place] [address] PCP - ACO Reach 02/26/23 Carlos Enrique Maguire MD [address] [facility] [address] [place] [address] PCP - General Internal Medicine 02/10/23 Body Stylist Relationship Specialty Start Date End Date Carlos Enrique Maguire MD [address] [facility] [address] [place] [address] PCP - ACO Reach 02/26/23 Carlos Enrique Maguire MD [address] [facility] [address] [place] [address] PCP - General Internal Medicine 02/10/23 Body Stylist Relationship Specialty Start Date End Date Carlos Enrique Maguire MD [address] [facility] [address] [place] [address] PCP - ACO Reach 02/26/23 Carlos Enrique Maguire MD [address] [place] [address] PCP - General Internal Medicine 02/10/23 Body Stylist Relationship Specialty Start Date End Date Carlos Enrique Maguire MD [address] [place] [address] PCP - General Internal Medicine 02/10/23 Carlos Enrique Maguire MD [address] [place] [address] PCP - ACO Reach 11/18/24 Body Stylist Relationship Specialty Start Date End Date Carlos Enrique Maguire MD [address] [place] [address] PCP - General Internal Medicine 02/10/23 Carlos Enrique Maguire MD [address] [place] [address] PCP - ACO Reach 11/18/24 Body Stylist Relationship Specialty Start Date End Date Carlos Enrique Maguire MD [address] [place] [address] PCP - General Internal Medicine 02/10/23 Body Stylist Relationship Specialty Start Date End Date Carlos Enrique Maguire MD [address] [place] [address] PCP - General Internal Medicine 02/10/23 Body Stylist Relationship Specialty Start Date End Date Carlos Enrique Maguire MD [address] [place] [address] PCP - General Internal Medicine 02/10/23 Body Stylist Relationship Specialty Start Date End Date Carlos Enrique Maguire MD [address] [place] [address] PCP - General Internal Medicine 02/10/23 Body Stylist Relationship Specialty Start Date End Date Carlos Enrique Maguire MD [address] [place] [address] PCP - General Internal Medicine 02/10/23 Body Stylist Relationship Specialty Start Date End Date Carlos Enrique Maguire MD [address] [place] [address] PCP - General Internal Medicine 02/10/23 Body Stylist Relationship Specialty Start Date End Date Carlos Enrique Maguire MD [address] [place] [address] PCP - General Internal Medicine 02/10/23 Body Stylist Relationship Specialty Start Date End Date Carlos Enrique Maguire MD [address] [place] [address] PCP - General Internal Medicine 02/10/23 Body Stylist Relationship Specialty Start Date End Date Carlos Enrique Maguire MD [address] [place] [address] PCP - General Internal Medicine 03/15/25 Body Stylist Relationship Specialty Start Date End Date Carlos Enrique Maguire MD [address] [place] [address] PCP - General Internal Medicine 02/10/23 Body Stylist Relationship Specialty Start Date End Date Carlos Enrique Maguire MD [address] [place] [address] PCP - General Internal Medicine 03/15/25 Team Status: Active Member Role Status Dates Carlos Enrique Maguire II MD Primary Care Provider Active Team Status: Inactive Member Role Status Dates Carlos Enrique Maguire II MD Primary Care Provider Active Start: May 17, 2025 End: May 17, 2025 ALBERT Galindo RN REFINING MACHINE OPERATOR-C Attending Provider Active Start: May 17, 2025 End: May 17, 2025 Body Stylist Relationship Specialty Start Date End Date Carlos Enrique Maguire MD [address] [place] [address] PCP - General Internal Medicine 02/10/23 Body Stylist Relationship Specialty Start Date End Date Carlos Enrique Maguire MD [address] [place] [address] PCP - General Internal Medicine 02/10/23 Body Stylist Relationship Specialty Start Date End Date Carlos Enrique Maguire MD [address] [place] [address] PCP - General Internal Medicine 03/15/25 Body Stylist Relationship Specialty Start Date End Date Carlos Enrique Maguire MD [address] [place] [address] PCP - General Internal Medicine 03/15/25 Body Stylist Relationship Specialty Start Date End Date Carlos Enrique Maguire MD [address] [place] [address] PCP - General Internal Medicine 02/10/23 Body Stylist Relationship Specialty Start Date End Date Carlos Enrique Maguire MD [address] [place] [address] PCP - General Internal Medicine 02/10/23 Team Status: Inactive Member Role Status Dates Carlos Enrique Maguire II MD Primary Care Provider Active Start: June 06, 2025 End: June 06, 2025 Jaqui Zeng APRN Attending Provider Active Start: June 06, 2025 End: June 06, 2025 Body Stylist Relationship Specialty Start Date End Date Carlos Enrique Maguire MD [address] [place] [address] PCP - General Internal Medicine 02/10/23 Team Status: Inactive Member Role Status Dates Carlos Enrique Maguire II MD Primary Care Provider Active Start: June 13, 2025 End: June 13, 2025 Anny Bhatti APRN Attending Provider Active S tart: June 13, 2025 End: June 13, 2025 Body Stylist Relationship Specialty Start Date End Date Carlos Enrique Maguire MD [address] [facility] [address] [place] [address] PCP - General Internal Medicine 02/10/23 Body Stylist Relationship Specialty Start Date End Date Carlos Enrique Maguire MD [address] [facility] [address] [place] [address] PCP - General Internal Medicine 02/10/23 Body Stylist Relationship Specialty Start Date End Date Carlos Enrique Maguire MD [address] [facility] [address] [place] [address] PCP - General Internal Medicine 03/15/25 Goals (unrecognized section and content) Goals may be documented in a n alternate section FOR RECORDS PERTAINING TO PATIENTS WHO ARE [...] BE BASED ON THE PRIMARY CLINICAL RECORDS. [employer] [facility]. provides no warranty or guarantee of the accuracy or completeness of information in this document.
--- OUTSIDE RECORDS SUMMARY | 2025-06-24 03:15 | XMS_ITS | Encounter Summary ---
Author Organization [facility] Address [address] [place] [address] Care Team Providers Care Screen Writer Name Role Phone Carlos Enrique Maguire MD Primary Care Provider [phone] Encounter Details Date Type Department Care Team (Late st Contact Info) Description 06/14/2025 Telephone [facility] [address] [place] [address] Munira Freedman NP [address] [place] [address] Social History Tobacco Use Types Packs/Day Years [...] on file documented as of this encounter Functional Status * Over the [...] people? Somewhat difficult 06/15/2025 3:48 PM EDT SILVIA, MORRIS documented as of this encounter Miscellaneous Notes * Telephone Encounter - MORRIS VEGA - 06/14/2025 4:10 PM EDT Patient Lm for a CB for his echo results. I returned his call and he stated that he was having trouble breathing and wanted his test results. I advised him to call 911 if he was having breathing issues. He proceeded to yell at me for the result and that he has called 4 different times. He said he first called on Thursday when he saw the result sin his Mychart and then again twice on Thursday and . He was very upset that tasia one had called him back. I stated that there wasn't any messages in his chart that he had called. I even asked the other nurses if they got a call, they said No. He continued to yell at me for his result and I relayed to him that they provider has not seen them andthat if his breathing issues continue it would be in his best interest to go to the ER. documented in this encounter Plan of Treatment Upcoming Encounters Date Type Department Care Team (Late st Contact Info) Description 08/23/2025 10:30 AM EST Office Visit [facility] [place] [facility] [address] [facility] [address] [place] [address] Munira Freedman NP [address] [facility] [address] [place] [address] documented as of this encounter Visit Diagnoses Not on filedocumented in this encounter Additional Health Concerns Assessment Noted Time PHQ-9 Depression Total Score: 0 12/09/19 24 11:00 AM EST documented as of this encounter Care Teams Screen Writer Relationship Specialty Start Date End Date Carlos Enrique Maguire MD [address] [facility] [address] [place] [address] PCP - General Internal Medicine 02/10/23 06/21/25 documented as of this encounter
--- OUTSIDE RECORDS SUMMARY | 2025-06-24 03:15 | XMS_ITS | Clinical Summary ---
Author Organization [employer] [facility] Address [id number] [place] [address] Care Team Providers Care Java Tech Lead Name Role Phone Carlos Enrique Maguire MD Primary Care Provider [phone] Allergies Active Allergy Reactions Criticality Noted Date Comments Penicillins Swelling 12/06/2009 localized to the site of injection Other Reaction(s): Unknown localized to the site of injection Medications atorvastatin (LIPITOR) 20 mg tablet Take 1 tablet (20 mg total) by mouth in the morning. Active levothyroxine (SYNTHROID, LEVOTHROID) 100 MCG tablet Take 1 tablet (100 mcg total) by mouth in the morning. Active LORazepam (ATIVAN) 0.5 mg tablet Take 1 tablet (0.5 mg total) by mouth 2 (two) times a day as needed for anxiety. 5 Active mirtazapine (REMERON) 30 mg tablet Take 1 tablet (30 mg total) by mouth nightly. 5 Active tiZANidine (ZANAFLEX) 4 mg tablet Take 1 tablet (4 mg total) by mouth every 8 (eight) hours as needed for muscle spasms. TAKE 1 TABLET(4 MG) BY MOUTH EVERY 8 HOURS NEEDED FOR MUSCLE SPASMS 5 Active traMADoL (ULTRAM) 50 mg tablet Take 2 tablets (100 mg total) by mouth every 6 (six) hours as needed. 5 Active gabapentin (NEURONTIN) 300 mg capsuleIndicatio ns:Thoracic spondylosis without myelopathy,Lumba r spondylosis Take 1 capsule (300 mg total) by mouth 3 (three) times a day. 90 capsule 1 5 Active meloxicam (MOBIC) 15 mg tablet Take 1 tablet (15 mg total) by mouth in the morning. 30 tablet 1 5 Active baclofen (LIORESAL) 10 mg tablet Take 1 tablet (10 mg total) by mouth 2 (two) times a day as needed for muscle spasms. 60 tablet 1 Active mupirocin (BACTROBAN) 2 % cream 5 06/25/20 Active sucralfate (CARAFATE) 1 gram tablet Take 1 tablet (1 g total) by mouth in the morning and 1 tablet (1 g total) in the evening. Take before meals. Active predniSONE (DELTASONE) 10 mg tablet Take by mouth in the morning. 40 mg taper as directed . 5 07/01/20 Active sertraline (ZOLOFT) 100 mg tablet Take 2 tablets (200 mg total) by mouth. 5 05/29/20 doxycycline (VIBRAMYCIN) 100 mg capsule Take 1 capsule (100 mg total) by mouth in the morning and 1 capsule (100 mg total) before bedtime. 06/23/20 Active Problems Problem Noted Date Diagnosed Date Thoracic spondylosis without myelopathy 03/15/20 Chronic idiopathic constipation 12/09/2023 External hemorrhoid, bleeding 12/09/2023 History of drug abuse in remission 12/09/2023 Esophageal reflux 07/01/2023 Hypothyroidism 07/01/2023 Loss of appetite 07/01/2023 Mixed hyperlipidemia 07/01/2023 Seizure 07/01/2023 Vitamin B12 deficiency 07/01/2023 Orthostatic hypotension 12/15/2009 Anxiety disorder, unspecified 12/09/2009 Depressive disorder 12/09/2009 Palpitations 12/09/2009 Bipolar 2 disorder 12/06/2009 Overview (03/15/2025): 2003 Drug abuse 12/06/2009 Overview (03/15/2025): denies since 2005 ETOH abuse 12/06/2009 Overview (03/15/2025): denies since 2005 Encounters Date Type Department Care Team Description 06/23/2025 10:07 AM EDT - 06/23/2025 10:14 AM EDT Surgery [facility] Procedures [address] [place] [address] Kota Petty MD INJECTION BLOCK NERVE MEDIAL BRANCH Bilat T 3/4, 4/5 [01769 (CPT )] 06/23/2025 9:23 AM EDT - 06/23/2025 11:59 PM EDT Hospital Encounter [facility] [address] [place] [place] [address] Kota Petty MD Discharge Disposition: Home 06/23/2025 8:45 AM EDT - 06/23/2025 9:22 AM EDT Hospital Encounter [facility] - Radiology [address] [address] Kota Petty MD Thoracic spondylosis without myelopathy Discharge Disposition: Home 06/23/2025 Telephone [facility] [address] [place] [address] Stacie Carranza, FLORENCIA 06/16/2025 Orders Only [facility] [address] [place] [address] Steffi Israel, FLORENCIA 06/16/2025 Telephone [facility] [address] [place] [address] Steffi Israel, FLORENCIA 06/09/2025 Refill [facility] [address] [place] [address] Liss Moralez, FLORENCIA 06/08/2025 7:16 AM EDT - 06/08/2025 11:59 PM EDT Hospital Encounter [facility] - Cardiovascular [address] [place] [address] Murmur, heart; SOB (shortness of breath) Discharge Disposition: Home 06/07/2025 1:00 PM EDT Office Visit [facility] [address] [place] [address] Jackelin Omalley PA-C Thoracic spondylosis without myelopathy (Primary Dx) 06/06/2025 Travel 05/22/2025 Refill [facility] [address] [place] [address] Liss Moralez RN 05/22/2025 Refill [facility] [address] [place] [address] Liss Moralez RN Thoracic spondylosis without myelopathy; Lumbar spondylosis 05/19/2025 9:50 AM EDT - 05/19/2025 9:57 AM EDT Surgery [facility] [address] [place] [address] Kota Petty MD INJECTION BLOCK NERVE MEDIAL BRANCH Bilat T 3/4, 4/5 [27392 (CPT )] 05/19/2025 8:59 AM EDT - 05/19/2025 11:59 PM EDT Hospital Encounter [facility] [address] [place] [address] Kota Petty MD Discharge Disposition: Home 05/19/2025 8:20 AM EDT - 05/19/2025 8:58 AM EDT Hospital Encounter [facility] [address] [place] [address] Kota Petty MD Thoracic spondylosis without myelopathy Discharge Disposition: Home 05/19/2025 Travel 05/08/2025 Travel 04/26/2025 8:45 AM EDT Office Visit [facility] [address] [place] [address] [place] [address] Jackelin Omalley PA-C Thoracic spondylosis without myelopathy (Primary Dx); Lumbar spondylosis 04/26/2025 Travel from Last 3 Months Social History Tobacco Use Types Packs/Day Years [...] on file Sexual Orientation Not on file Last Filed Vital Signs Vital Sign Reading Time Taken Comments Blood Pressure 152/90 06/23/2025 9:56 AM EDT Pulse 53 06/23/2025 9:56 AM EDT Temperature 36.4 C (97.5 F) 06/23/2025 9:37 AM EDT Respiratory Rate 18 06/23/2025 9:56 AM EDT Oxygen Saturation 100% 06/23/2025 9:56 AM EDT Inhaled Oxygen Concentration - - Weight 48.5 kg (107 lb) 06/07/2025 12:55 PM EDT Height 175.3 cm (5' 9 ) 06/07/2025 12:55 PM EDT Body Mass Index 15.8 06/07/2025 12:55 PM EDT Plan of Treatment Upcoming Encounters Date Type Department Care Team (Late st Contact Info) Description 07/11/2025 9:00 AM EDT Office Visit [facility] General Surgery [address] [place] [address] Monica Ortiz, BOOSTER PUMP OPERATOR-DIRECTOR [employer] [address] [place] [address] 07/19/2025 10:45 AM EDT Office Visit [facility] [address] [place] [address] Jackelin Omalley, PA-C [address] [place] [address] Health Maintenance Due Date Last Done Comments Tobacco Counseling 1966 Depression Screening 1978 Adult BMI Follow Up Plan 1984 Zoster (Shingles) Vaccine (1 of 2) 2016 Influenza Vaccine 06/05/2025 06/22/2020, , 06/22/2017, Additional history exists Adult BMI Screening 06/07/2026 06/07/2025 Tobacco Screening 06/23/2026 06/23/2025 DTaP,Tdap and Td Vaccines (2 - Td or Tdap) 06/06/2035 06/06/2025 Medical Devices Not on file Procedures Procedure Name Priority Date/Time Associated Diagnosis Comments FL FLUOROSCOPY UP TO 1 HOUR Routine 06/23/2025 9:55 AM EDT Thoracic spondylosis without myelopathy OR INJ DX/THER AGNT PARAVERT FACET JOINT,IMG GUIDE,CERV/THORAC, 1ST LEVEL 06/23/2025 9:50 AM EDT Thoracic spondylosis without myelopathy Special Needs Echo 06/08 ECHO COMPLETE WO CONTRAST Routine 06/08/2025 7:58 AM EDT Murmur, heart SOB (shortness of breath) FL FLUOROSCOPY UP TO 1 HOUR Routine 05/19/2025 9:41 AM EDT Thoracic spondylosis without myelopathy OR INJ DX/THER AGNT PARAVERT FACET JOINT,IMG GUIDE,CERV/THORAC, 1ST LEVEL 05/19/2025 9:34 AM EDT Thoracic spondylosis without myelopathy Special Needs NO STEROID PER INSURANCE from Last 3 Months Results * Fluoroscopy less than one hour (06/23/2025 9:55 AM EDT) Only the most recent of2 resultswithin the time period is included. Narrative SYSTEMGENERATED, DOCUMENTATION - 06/23/2025 9:55 AM EDT No Reading Required. This procedure does not require a formal dictation. Non-Radiologist provider performed procedures can be reviewed under Post-Op, Procedure or Progress notes. For full report details, please reach out to your physician. Effective 02/19/2021 this image will be visible to you in [employer]. us Kota Petty MD IMG FLUOROSCOPY ORDERABLES Fi nal Result * Echo complete W/O contrast (06/08/2025 7:58 AM EDT) LVOT stroke volume 68.80 ml XCELERA LV Systolic Volume 23.80 mL XCELERA EF 65 % XCELERA FS 33 28 - 44 % XCELERA LV Diastolic Volume 68.50 mL XCELERA LVIDd 3.60 cm XCELERA LVIDs 2.40 cm XCELERA IVS 0.80 0.6 - 1.1 cm XCELERA PW 0.80 0.6 - 1.1 cm XCELERA LVOT diameter 2.00 cm XCELERA TDI 11.10 cm/s XCELERA MV TDI E' (medial) 7.29 cm/s XCELERA LA Volume Index 13.1 mL/m2 XCELERA E/A ratio 0.83 XCELERA E wave deceleration time 275.00 msec XCELERA MV Peak E Felix 47.50 cm/s XCELERA MV Peak A Felix 57.20 cm/s XCELERA LA size 3.00 cm XCELERA Aortic root 2.90 cm XCELERA LA volume 20.10 cm3 XCELERA RV diastolic dimension (basal) 32.0 mm XCELERA RVID d 2.6 cm XCELERA TAPSE 2.47 cm XCELERA AV peak felix 141.00 cm/s XCELERA LVOT peak felix 1.25 m/s XCELERA AV VTI 28.20 cm XCELERA LVOT peak VTI 21.90 cm XCELERA AV mean gradient 4.00 mmHg XCELERA AV peak gradient 7.95 mmHg XCELERA AV valve area 2.44 XCELERA Valve area - Index 1.6 XCELERA MV pressure 1/2 time 80.00 ms XCELERA MV valve area p 1/2 method 2.75 cm2 XCELERA TR Peak Felix 1.8 m/s XCELERA TR peak gradient 12.25 mmHg XCELERA LV ESV A2C 18.80 mL XCELERA LV ESV A4C 19.20 mL XCELERA LV RWT 2D 44.44 XCELERA Echo EF Estimated 65 % XC[facility]A AV Velocity Ratio 0.78 XCELERA Left Ventricle Mass 78.101635 68573853 g XCELERA Interventricular Septum Diastolic Thickness by 2D 8 cm XCELERA Est. RA pressure 3 mmHg XCELERA RA area 10.5 cm2 XCELERA Anatomical Region Laterality Modality Chest N/A Ultrasound Narrative 06/08/2025 9:51 AM EDT Left Ventricle: Left ventricle is small. Systolic function is normal with an ejection fraction of 60-65%. The quantitative EF by 2D Og biplane is 65%. Normal diastolic function is present. Right Ventricle: Right ventricular size appears normal. There is no significant valvular stenosis or regurgitation. Pericardium: There is a small fluid pericardial effusion. There is a left pleural effusion. Left Ventricle Left ventricle is small. Wall thickness is normal. Systolic function is normal with an ejection fraction of 60-65%. The quantitative EF by 2D Go biplane is 65%. No obvious regional wall motion abnormalities. Normal diastolic function is present. Lateral E' is 11.10 cm/s. Medial E' is 7.29 cm/s. Right Ventricle Right ventricular size appears normal. The right ventricular basal diameter is 32.0 mm. Systolic function is normal. Normal tricuspid annular plane systolic excursion. Normal systolic excursion velocity by TDI (>9.5 cm/s). Left Atrium Left atrium volume index is normal. The left atrial volume index is 13.1 mL/m2. Right Atrium Right atrium is normal in size. The right atrial area is 10.5 cm2. IVC/SVC The right atrial pressure is estimated at 3 mmHg. There is normal collapse with deep inspiration. Mitral Valve The mitral valve was not well visualized. The leaflets are mildly thickened. There is mild annular calcification. There is no regurgitation or stenosis. Tricuspid Valve The tricuspid valve was not well visualized. The leaflets are mildly thickened. There is trace regurgitation. There is no evidence of tricuspid valve stenosis. Insufficient regurgitant jet to assess right ventricular systolic pressure. RVSP is based on RA pressure of 3 mmHg. RVSP estimated at <30 mmHg. Aortic Valve The aortic valve was not well visualized. There is mild sclerosis. There is no regurgitation or stenosis. Pulmonic Valve The pulmonic valve was not well visualized. Ascending Aorta The aortic root is normal in size. Pericardium There is a small fluid pericardial effusion. There is a left pleural effusion. Study Details A complete echo was performed using complete 2D, color flow Doppler and spectral Doppler. Overall the study quality was adequate. The study was difficult due to patient's body habitus and poor acoustic windows. BP 138/85 Wall Scoring Baseline Score Index: 1.00 The left ventricular wall motion is normal. us Munira Freedman BOOSTER PUMP OPERATOR-DIRECTOR [employer]NER[employer] CV ECHO ORDERABLES Fin al Result from Last 3 Months Insurance MEDICAID [place] MEDIC[place] Care Teams Java Tech Lead Relationship Specialty Start Date End Date Carlos Enrique Maguire MD [address] [facility] [address] [place] [address] PCP - General Internal Medicine 03/15/25
--- OUTSIDE RECORDS SUMMARY | 2025-06-24 03:15 | XMS_ITS | Clinical Summary ---
Author Organization [facility] Address [address] [place], [place] [id number] Care Team Providers Care Fish Salter Name Role Phone Unavailable Primary Care Provider Unavailabl e Allergies Active Allergy Reactions Criticality Noted Date Comments Penicillins Swelling 12/06/2009 localized to the site of injection Medications sertraline hcl(ZOLOFT 100 MG TAB) two tablets daily 0 12/06/2009 Active OLANZAPINE 15 MG TAB Take one(1) tablet daily. 0 12/06/2009 Active fludrocortisone acetate(FLORINEF 0.1 MG TAB)Indications: Orthostatic hypotension Take one tablet a day for 2 days, then take 1/2 tablet once a day for 10 days, then take 1/2 tablet every other day. 13 2 12/25/2009 Active potassium chloride(KLOR-CO N 8 MEQ TAB)Indications: Hypokalemia Take one tablet daily. 30 3 12/28/2009 Active Active Problems Problem Noted Date Diagnosed Date Orthostatic hypotension 12/15/2009 Dizziness and giddiness 12/09/2009 Diaphoresis 12/09/2009 Anxiety 12/09/2009 Depressive disorder 12/09/2009 Bipolar disorder 12/09/2009 Palpitations 12/09/2009 Bipolar 2 disorder 12/06/2009 Overview (12/06/2009): 2003 Syncope 12/06/2009 ETOH abuse 12/06/2009 Overview (12/06/2009): denies since 2005 Drug abuse 12/06/2009 Overview (12/06/2009): denies since 2005 Social History Tobacco Use Types Packs/Day Years Used Date Smoking Tobacco: Every Day Cigarettes 1 17 Comments:smokes marajuana 1- 2 times a month Alcohol Use Standard Drinks/Week Comments No 0 (1 standard drink = 0.6 oz pure alcohol) quit 2005, used to drink 3 beers daily Sex and Gender Information Value Date Recorded Sex Assigned at Not on file Legal Sex Male 8:27 AM EST Gender Identity Not on file Sexual Orientation Not on file Last Filed Vital Signs Vital Sign Reading Time Taken Comments Blood Pressure - - Pulse - - Temperature - - Respiratory Rate - - Oxygen Saturation - - Inhaled Oxygen Concentration - - Weight 76.3 kg (168 lb 4.8 oz) 12/06/2009 12:23 PM EST Height 175.3 cm (5' 9 ) 12/06/2009 12:23 PM EST Body Mass Index 24.85 12/06/2009 12:23 PM EST Plan of Treatment Health Maintenance Due Date Last Done Comments Anxiety Screening 1984 Depression Screening 1984 HIV Screening 1984 Hepatitis C Screening 1984 DTaP,Tdap,Td Vaccine (1 - Tdap) 1985 Hepatitis B Vaccine (1 of 3 - 19+ 3-dose series) 10/[address] Colonography 2011 Cologuard (FIT-DNA) 2011 Colonoscopy 2011 Colorectal Cancer Screening 2011 Diabetes Screening 2011 Fecal Occult Blood 2011 Prostate Cancer Screening Discussion 2011 Sigmoidoscopy 2011 Pneumococcal Vaccine: 50+ (1 of 1 - PCV) 2016 Shingrix Vaccine (1 of 2) 2016 Influenza Vaccine (#1) 2025
--- OUTSIDE RECORDS SUMMARY | 2025-06-24 03:15 | XMS_ITS | Encounter Summary ---
Author Organization [facility] Address [id number] [address] [place] [address] Care Team Providers Care Branch Service Associate Name Role Phone Carlos Enrique Maguire MD Primary Care Provider [phone] Encounter Details Date Type Department Care Team (Late st Contact Info) Description 06/23/2025 Telephone [facility] [address] [place] [address] Stacie Carranza, RN Social History Tobacco Use Types Packs/Day Years [...] on file documented as of this encounter Miscellaneous Notes * Telephone Encounter - Stacie Carranza RN - 06/23/2025 12:37 PM EDT Pt calls with c/o pain at injection site and bilateral shoulder blades are sore. Educated pt that injection site pain is to be expected and for pain control he can use OTC treatments such as NSAIDs, tylenol, topical pain relievers such as creams/gels, patches, heat/ice. PVU documented in this encounter Plan of Treatment Upcoming Encounters Date Type Department Care Team (Late st Contact Info) Description 07/11/2025 9:00 AM EDT Office Visit [facility] General [facility] [address] [place] [phone] Monica Ortiz APRN-[employer] [address] [place] [address] 07/19/2025 10:45 AM EDT Office Visit [facility] [address] [place] [phone] Jackelin Omalley, PAAngC [address] [facility], 2nd Floor [place], [place] [phone] documented as of this encounter Visit Diagnoses Not on filedocumented in this encounter Care Teams Branch Service Associate Relationship Specialty Start Date End Date Carlos Enrique Maguire MD [address] [facility] [address] [place] [address] PCP - General Internal Medicine 03/15/25 documented as of this encounter
--- OUTSIDE RECORDS SUMMARY | 2025-06-24 03:15 | XMS_ITS | Encounter Summary ---
Author Organization [email or web address] Address [id number] [address] [place] [address] Care Team Providers Care Pocket Assembler Name Role Phone Carlos Enrique Maguire MD Primary Care Provider [phone] Reason for Visit * Reason Onset Date Comments Med Refill 06/09/2025 Encounter Details Date Type Department Care Team ([facility] Contact Info) Description 06/09/2025 Refill [facility] [address] [place] [phone] Liss Moralez RN Social History Tobacco Use Types Packs/Day [...] encounter Miscellaneous Notes * Telephone Encounter - Liss Moralez RN - 06/09/2025 1:16 PM EDT Error. Patient does not need a refill. Last RX for Gabapentin was 05/23/25 with one refill. Attempt to call patient an inform of refill at pharmacy, no answer and unable to leave a voicemail. documented in this encounter Plan of Treatment Upcoming Encounters Date Type Department Care Team ([facility] Contact Info) Description 07/11/2025 9:00 AM EDT Office Visit [facility] [address] [place] [phone] Monica Ortiz APRN-DIRECTOR OF MARKETING [employer]NALYTICS [address] [place] [address] 07/19/2025 10:45 AM EDT Office Visit [facility] [address] [place] [phone] Jackelin Omalley PA-C [address] [facility], 2nd Floor [place], [place] [phone] documented as of this encounter Visit Diagnoses Not on filedocumented in this encounter Care Teams Pocket Assembler Relationship Specialty Start Date End Date Carlos Enrique Maguire MD [address] [facility] [address] [place] [address] PCP - General Internal Medicine 03/15/25 documented as of this encounter
--- OUTSIDE RECORDS SUMMARY | 2025-06-24 03:15 | XMS_ITS | Encounter Summary ---
Author Organization [facility] Address [address] [place] [address] Care Team Providers Care Marine Rigger Name Role Phone Carlos Enrique Maguire MD Primary Care Provider [phone] Encounter Details Date Type Department Care Team (Late Contact Info) Description 06/15/2025 Bamboo flowsheet [facility] [place] [facility] [address] [place] [phone] Munira Freedman NP [address] [place] [address] Social History Tobacco Use Types Packs/Day Years [...] Encounters Date Type Department Care Team (Late Contact Info) Description 08/23/2025 10:30 AM EST Office Visit [facility] [place] [facility] [address] [place] [phone] Munira Freedman NP [address] [place] [address] documented as of this encounter Visit Diagnoses Not on filedocumented in this encounter Additional Health Concerns Assessment Noted Time PHQ-9 Depression Total Score: 0 12/09/19 24 11:00 AM EST documented as of this encounter Care Teams Marine Rigger Relationship Specialty Start Date End Date Carlos Enrique Maguire MD 112 [facility] 110 [place] [address] PCP - General Internal Medicine 02/10/23 06/21/25 documented as of this encounter
--- OUTSIDE RECORDS SUMMARY | 2025-06-24 03:15 | XMS_ITS | Clinical Summary ---
Author Organization [facility] Healthcare Address [address] [place] [address] Care Team Providers Care Nursery Helper Name Role Phone Unallocated, [facility] Provider Primary Care Provi alba Allergies Active Allergy Reactions Criticality Noted Date Comments Penicillins Swelling 12/06/2009 Other Reaction(s): Unknown localized to the site of injection Medications atorvastatin (Lipitor) 20 MG tabletIndications: Mixed hyperlipidemia Take 1 tablet (20 mg) by mouth Daily 30 tablet 2 11/09/19 25 Active levothyroxine (Synthroid, Levoxyl) 100 MCG tabletIndications: Hypothyroidism, unspecified Take 1 tablet (100 mcg) by mouth in the morning. Take before meals. 100 tablet 3 11/09/19 25 Active mirtazapine (Remeron) 30 MG tabletIndications: Reactive depression (situational) Take 1 tablet (30 mg) by mouth at bedtime 30 tablet 2 11/09/19 25 Active diclofenac (Voltaren) 75 MG EC tabletIndications: Severe back pain Take 1 tablet (75 mg) by mouth in the morning and 1 tablet (75 mg) before bedtime. 180 tablet 3 01/12/20 25 026 Active sertraline (Zoloft) 100 MG tabletIndications: Reactive depression (situational) Take 2 tablets (200 mg) by mouth at bedtime 60 tablet 2 02/29/20 25 Active traMADol (Ultram) 50 MG tabletIndications: Severe back pain Take 1 tablet (50 mg) by mouth every 6 (six) hours if needed for severe pain for up to 7 days 28 tablet 05/22/20 25 Active cyclobenzaprine (Flexeril) 5 MG tabletIndications: Muscle spasm Take 1 tablet (5 mg) by mouth 3 (three) times a day as needed for muscle spasms May take 2 at bedtime 60 tablet 2 05/24/20 25 026 Active bacitracin 500 UNIT/GM ointmentIndication s:Abrasion Apply topically in the morning and before bedtime. 14 g 1 05/24/20 25 Active pantoprazole (ProtoNix) 40 MG EC tabletIndications: Gastroesophageal reflux disease with esophagitis without hemorrhage Take 1 tablet (40 mg) by mouth Daily Do not crush, chew, or split. 100 tablet 3 05/24/20 25 026 Active LORazepam (Ativan) 1 MG tabletIndications: Anxiety Take 1 tablet (1 mg) by mouth 3 (three) times a day as needed for anxiety for up to 10 days 30 tablet 06/08/20 25 Active sucralfate (Carafate) 1 g tabletIndications: Gastric pain,Nausea and vomiting, unspecified vomiting type Take 1 tablet (1 g) by mouth in the morning and 1 tablet (1 g) in the evening. Take before meals. 60 tablet 11 06/15/20 25 026 Active predniSONE (Deltasone) 10 MG tabletIndications: Pericardial effusion (HHS-HCC) Take 4 tablets (40 mg) by mouth Daily for 4 days, THEN 3 tablets (30 mg) Daily for 4 days, THEN 2 tablets (20 mg) Daily for 4 days, THEN 1 tablet (10 mg) Daily for 4 days. 40 tablet 06/15/20 25 025 Active mupirocin (Bactroban) 2 % creamIndications:S kin infection Apply topically in the morning and in the evening and before bedtime. Do all this for 10 days. 15 g 06/15/20 25 025 Active LORazepam (Ativan) 1 MG tabletIndications: Anxiety Take 1 tablet (1 mg) by mouth 3 (three) times a day as needed for anxiety for up to 10 days 30 tablet 05/22/20 25 025 Discontinu ed(Reorder ) ondansetron ODT (Zofran-ODT) 4 MG disintegrating tabletIndications: Nausea and vomiting, unspecified vomiting type Take 1 tablet (4 mg) by mouth every 8 (eight) hours if needed for nausea or vomiting for up to 7 days 21 tablet 05/24/20 25 025 Active Problems Problem Noted Date Diagnosed Date Persistent depressive disorder 11/09/2024 Chronic idiopathic constipation 12/09/2023 External hemorrhoid, bleeding 12/09/2023 History of drug abuse in remission 12/09/2023 History of ETOH abuse 12/09/2023 Anorexia 07/01/2023 Anxiety disorder, unspecified 07/01/2023 Bipolar disorder 07/01/2023 Deficiency of other specified B group vitamins 0 07/01/2023 Vitamin B12 deficiency 07/01/2023 Esophageal reflux 07/01/2023 Hypothyroidism 07/01/2023 Mixed hyperlipidemia 07/01/2023 Seizure 07/01/2023 Orthostatic hypotension 12/15/2009 Dizziness and giddiness 12/09/2009 Palpitations 12/09/2009 Resolved Problems Problem Noted Date Diagnosed Date Resolved Date Diaphoresis 12/09/2009 12/09/2023 Drug abuse 12/06/2009 12/09/2023 Overview (12/09/2023): denies since 2005 ETOH abuse 12/06/2009 12/09/2023 Overview (12/09/2023): denies since 2005 Encounters Date Type Department Care Team Description 06/22/2025 [facility] [address] [place] [address] Unallocated, Noms MD Reshma 06/22/2025 Telephone [facility] [place] [facility] [address] [place] [place] [address] Tessa Castañeda 06/21/2025 11:30 AM EDT Office Visit [facility] [place] [facility] [address] [place] [address] Munira Freedman NP Pre-operative clearance (Primary Dx) 06/21/2025 Telephone [facility] [place] [facility] [address] [place] [place] [address] Carlos Enrique Maguire MD 06/21/2025 Bamboo flowsheet [facility] [place] [facility] [address] [place] [address] Munira Freedman, JERRY 06/21/2025 Travel 06/15/2025 4:00 PM EDT Office Visit [facility] [place] [facility] [address] [facility] [address] [place] [address] Munira Freedman, FILM SORTER Weight loss (Primary Dx); Gastric pain; Nausea and vomiting, unspecified vomiting type; Dysphagia, unspecified type; Pericardial effusion ([facility]); Skin infection 06/15/2025 Bamboo flowsheet [facility] [place] [facility] [address] [facility] [address] [place] [address] Munira Freedman NP 06/15/2025 Travel 06/14/2025 Telephone [facility] [place] [facility] [address] [facility] [address] [place] [address] Munira Freedman NP 06/13/2025 Abstract [facility] [place] [facility] [address] [facility] [address] [place] [address] Carlos Enrique Maguire MD 06/08/[address] [facility] [place] [facility] [address] [place] [address] Carlos Enrique Maguire MD Anxiety 06/08/2025 Abstract [facility] [place] [facility] [address] [facility] [address] [place] [address] Carlos Enrique Maguire MD 06/06/2025 Abstract [facility] [place] [facility] [address] [facility] [address] [place] [address] Carlos Enrique Maguire MD 05/24/2025 10:30 AM EDT Office Visit [facility] [place] [facility] [address] [facility] [address] [place] [address] Munira Freedman NP SOB (shortness of breath) (Primary Dx); Nausea and vomiting, unspecified vomiting type; Muscle spasm; Abrasion; Gastroesophageal reflux disease with esophagitis without hemorrhage; Murmur, heart 05/24/2025 Telephone [facility] [place] [facility] [address] [place] [address] Carlos Enrique Maguire MD 05/24/2025 Bamboo flowsheet [facility] [place] [facility] [address] [place] [address] Munira Freedman, FILM SORTER 05/24/2025 Travel 05/22/2025 Telephone [facility] [place] [facility] [address] [place] [address] Carlos Enrique Maguire MD 05/20/2025 Refill [facility] [place] [facility] [address] [place] [address] Carlos Enrique Maguire MD Anxiety; Severe back pain 05/17/2025 Abstract [facility] [place] [facility] [address] [place] [address] Carlos Enrique aMguire MD 05/03/2025 Telephone [facility] [place] [facility] [address] [place] [address] Carlos Enrique Maguire MD Referral 04/24/2025 Refill [facility] [place] [facility] [address] [place] [address] Carlos Enrique Maguire MD Severe back pain 04/17/2025 Refill [facility] [place] [facility] [address] [place] [address] Carlos Enrique Maguire MD Anxiety 04/17/2025 Refill [facility] [place] [facility] [address] [place] [address] Carlos Enrique Maguire MD Anxiety 04/08/2025 Refill [facility] [place] [facility] [address] [place] [address] Carlos Enrique Maguire MD Severe back pain from Last 3 Months Immunizations Immunization Administration Dates Next Due Influenza, injectable, quadrivalent 07/08/2019 Influenza, injectable, quadr ivalent, preservative free 06/22/2020 Influenza, seasonal, intrade rmal, preservative free 06/22/2017,07/06/2015,07/07/2014 Family History Medical History Relation Name Comments Coronary artery disease Father Hyperlipidemia Father Hypertension Father Stroke Father Relation Name Status Comments Father Mother Social History Tobacco Use Types Packs/Day Years [...] Pulse 80 06/21/2025 11:32 AM EDT Temperature 36.3 C (97.3 F) 02/06/2025 8:38 AM EDT Respiratory Rate 16 06/21/2025 11:32 AM EDT Oxygen Saturation 98% 06/21/2025 11:32 AM EDT Inhaled Oxygen Concentration - - Weight 51.3 kg (113 lb) 06/21/2025 11:32 AM EDT Height 175.3 cm (5' 9 ) 06/21/2025 11:32 AM EDT Body Mass Index 16.69 06/21/2025 11:32 AM EDT Plan of Treatment Upcoming Encounters Date Type Department Care Team (Late st Contact Info) Description 08/23/2025 10:30 AM EST Office Visit [facility] [place] [facility] [address] [facility] 110 [place] [address] Munira Freedman NP 112 [facility] 110 [place] [address] Health Maintenance Due Date Last Done Comments CT Colonography 1966 Colonoscopy 1966 Colorectal Cancer Screening 1966 FIT-DNA 1966 FIT 1966 FOBT 1966 Sigmoidoscopy 1966 Influenza Vaccine (#1) 2025 0, 07/08/2019, 06/22/2017, Additional history exists Medicare Annual Wellness (AWV) 02/28/2026 02/28/2025 , 02/28/2025, 12/09/2023 Insurance [employer]ARE [employer]VANTAGE Care Teams Nursery Helper Relationship Specialty Start Date End Date Unallocated, Noms MD Reshma [address] [place] [address] PCP - General Family Medicine 06/22/25
--- OUTSIDE RECORDS SUMMARY | 2025-06-24 03:15 | XMS_ITS | Encounter Summary ---
Author Organization [facility] Address [address] [facility] [place] [address] Care Team Providers Care Litigation Associate Name Role Phone Carlos Enrique Maguire MD Primary Care Provider [phone] Unallocated, [facility] Provider Primary Care Provi alba Encounter Details Date Type Department Care Team (Late Contact Info) Description 06/08/2025 Abstract [facility] [place] [facility] [address] [facility] 110 [place] [address] Carlos Enrique Maguire MD [address] [facility] 110 [place] [address] Social History Tobacco Use Types Packs/Day Years Used Date Smoking Tobacco: Every Day Cigarettes Smokeless Tobacco: Never Alcohol Use Standard Drinks/Week Comments Never 0 (1 standard drink = 0.6 oz pur e alcohol) Caffeine intake : chocolate PHQ-2 Answer Date Recorded Patient Health Questionnaire-2 Score 2 05/24/2025 Sex and Gender Information Value Date Recorded Sex Assigned at Not on file Legal Sex Male 6:37 PM EDT Gender Identity Not on file Sexual Orientation Not on file documented as of this encounter Plan of Treatment Upcoming Encounters Date Type Department Care Team (Late st Contact Info) Description 08/23/2025 10:30 AM EST Office Visit [facility] [place] [facility] [address] [facility] [address] [place] [address] Munira Freedman NP [address] [facility] [address] [place] [address] documented as of this encounter Visit Diagnoses Not on filedocumented in this encounter Additional Health Concerns Assessment Noted Time PHQ-9 Depression Total Score: 0 12/09/19 24 11:00 AM EST documented as of this encounter Care Teams Litigation Associate Relationship Specialty Start Date End Date Carlos Enrique Maguire MD [address] [facility] [address] [place] [address] PCP - General Internal Medicine 02/10/23 06/21/25 Unallocated, Noms Provider, [address] [place], [place] [phone] PCP - General Family Medicine 06/22/25 documented as of this encounter
--- OUTSIDE RECORDS SUMMARY | 2025-06-24 03:15 | XMS_ITS | Encounter Summary ---
Author Organization [facility] Address [address] [place] [address] Care Team Providers Care Gallery Manager Name Role Phone Unallocated, [facility] Encounter Details Date Type Department Care Team (Late Contact Info) Description 06/22/2025 Telephone [facility] [place] [facility] [address] [place] [address] Tessa Castañeda Social History Tobacco Use Types Packs/Day Years [...] encounter Miscellaneous Notes * Telephone Encounter - Tessa Castañeda - 06/22/2025 10:21 AM EDT Made in Error documented in this encounter Plan of Treatment Upcoming Encounters Date Type Department Care Team (Late st Contact Info) Description 08/23/2025 10:30 AM EST Office Visit [facility] [place] [facility] [address] [place] [address] Munira Freedman, JERRY [address] [place], [place] [address] documented as of this encounter Visit Diagnoses Not on filedocumented in this encounter Additional Health Concerns Assessment Noted Time PHQ-9 Depression Total Score: 16 025 11:28 AM EDT documented as of this encounter Care Teams Gallery Manager Relationship Specialty Start Date End Date Unallocated, Noms Provider, [address] [place] [address] PCP - General Family Medicine 06/22/25 documented as of this encounter
--- OUTSIDE RECORDS SUMMARY | 2025-06-24 03:15 | XMS_ITS | Encounter Summary ---
Author Organization [facility] Address [address] [place] [address] Care Team Providers Care Telephonic Case Manager Name Role Phone Unallocated, Noms Provider Primary Care [facility] Encounter Details Date Type Department Care Team ([facility] Contact Info) Description 06/22/2025 Abstract [facility] [address] [place] [phone] Unallocated, Noms Provider, [address] [place] [address] Social History Tobacco Use Types Packs/Day Years [...] Upcoming Encounters Date Type Department Care Team ([facility] Contact Info) Description 08/23/2025 10:30 AM EST Office Visit [facility] [facility] [address] [facility] 110 [place] [address] Munira Freedman, JERRY 112 [facility] 110 [place] [address] documented as of this encounter Visit Diagnoses Not on filedocumented in this encounter Additional Health Concerns Assessment Noted Time PHQ-9 Depression Total Score: 16 025 11:28 AM EDT documented as of this encounter Care Teams Telephonic Case Manager Relationship Specialty Start Date End Date Unallocated, Anys Provider, [address] [place] [address] PCP - General Family Medicine 06/22/25 documented as of this encounter
--- OUTSIDE RECORDS SUMMARY | 2025-06-24 03:15 | XMS_ITS | Encounter Summary ---
Author Organization [facility] [employer] [facility] tem Address [id number] [address] [place] [address] Care Team Providers Care Mechanic And Welder Name Role Phone Carlos Enrique Maguire MD Primary Care Provider [phone] Encounter Details Date Type Department Care Team (Late st Contact Info) Description 06/16/2025 Telephone [facility] [address] [place] [address] Steffi Israel RN Social History Tobacco Use Types Packs/Day [...] encounter Miscellaneous Notes * Telephone Encounter - Steffi Israel RN - 06/16/2025 1:40 PM EDT Patient called office today to report that he was seen by cardiology and placed on new medications.He states he had an echo that showed water around my heart . 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 Doxy and topical is for a skin infection on his chin. Patient is scheduled for Bilateral T 3/4 4/5 MBB 06/23/2025. * Telephone Encounter - Jackelin Omalley PA-C - 06/16/2025 1:40 PM EDT We will need cardio clearance prior to procedure * Telephone Encounter - Steffi Israel RN - 06/16/2025 1:40 PM EDT Call placed to patient to obtain the name of patient's manager sales and marketing. He states he does not have a manager sales and marketing. Patient's PCP, Haley Morrell NP, ordered the echo. Patient's upcoming procedure is without sedation. How would you like to proceed? * Telephone Encounter - Steffi Israel RN - 06/16/2025 1:40 PM EDT Patient called office and repeated information noted in previous encounters related to echo results. He states he has to have his injection this week as he is so much pain. Patient is informed that provider will be made aware that he has no manager sales and marketing and that his PCP was the ordering provider. Patient states that if he not able to have his scheduled injection this week he will go to the ED. Jose ended the call. * Telephone Encounter - Steffi Israel RN - 06/16/2025 1:40 PM EDT Patient called office again and states he called and scheduled an appointment with Haley Morrell CNP tomorrow at 11:00 AM. Patient was again informed that provider will be made of aware of previous conversations. He is informed that a nurse will call him with an update tomorrow once provider response. He states it's just a little water around my heart . * Telephone Encounter - Jackelin Omalley PA-C - 06/16/2025 1:40 PM EDT If PCP will clear him that is sufficient * Telephone Encounter - Steffi Israel RN - 06/16/2025 1:40 PM EDT Clearance letter sent to his PCP, Haley Morrell RESEARCH LAB ASSISTANT. * Telephone Encounter - Stacie Carranza RN - 06/16/2025 1:40 PM EDT Resent surgical clearance to haley morrell. They did not send it back. They sent a referral, documentation stating pt requested referral * Telephone Encounter - Stacie Carranza RN - 06/16/2025 1:40 PM EDT Pt states his PCP office received our surgical clearance letter but they never addressed it. No oneis back in office until 1 pm and [...] for Bilateral T 3/4, 4/5 MBB, local. * Telephone Encounter - Stacie Carranza RN - 06/16/2025 1:40 PM EDT Clearance received from PCP. Called pt to inform him and that he can proceed with procedure. No answer. Will try again later. documented in this encounter Plan of Treatment Upcoming Encounters Date Type Department Care Team (Late st Contact Info) Description 07/11/2025 9:00 AM EDT Office Visit [facility] General Surgery [address] [place] [address] Monica Ortiz APRN-FIELD LOGISTICS COORDINATOR [address] [place] [address] 07/19/2025 10:45 AM EDT Office Visit [facility] [address] [place] [phone] Jackelin Omalley, PAAngC [address] [place] [address] documented as of this encounter Visit Diagnoses Not on filedocumented in this encounter Care Teams Mechanic And Welder Relationship Specialty Start Date End Date Carlos Enrique Maguire MD [address] [facility] 110 [place] [address] PCP - General Internal Medicine 03/15/25 documented as of this encounter
--- OUTSIDE RECORDS SUMMARY | 2025-06-24 03:15 | XMS_ITS | Encounter Summary ---
Author Organization [facility] Address [address] [place] [address] Care Team Providers Care Hematology Oncology Consultant Name Role Phone Carlos Enrique Maguire MD Primary Care Provider [phone] Encounter Details Date Type Department Care Team (Latest Contact Info) Description 06/15/2025 Travel Social History Tobacco Use Types Packs/Day Years [...] MORRIS VEGA documented as of this encounter Plan of Treatment Upcoming Encounters Date Type Department Care Team (Late st Contact Info) Description 08/23/2025 10:30 AM EST Office Visit [facility] [place] [facility] [address] [place] [address] [place] [address] Munira Freedman, AGRICULTURAL CROP FARM MANAGER [address] [facility] 110 [place] [address] documented as of this encounter Visit Diagnoses Not on filedocumented in this encounter Additional Health Concerns Assessment Noted Time PHQ-9 Depression Total Score: 0 12/09/19 24 11:00 AM EST documented as of this encounter Care Teams Hematology Oncology Consultant Relationship Specialty Start Date End Date Carlos Enrique Maugire MD [address] [facility] 110 [place] [address] PCP - General Internal Medicine 02/10/23 06/21/25 documented as of this encounter
--- OUTSIDE RECORDS SUMMARY | 2025-06-24 03:15 | XMS_ITS | Encounter Summary ---
Author Organization [facility] Address [address] [place] [address] Care Team Providers Care Behavioral Health Consultant Name Role Phone Carlos Enrique Maguire MD Primary Care Provider [phone] Reason for Referral * Consultation (Routine) - Authorized Specialty Diagnoses / Procedures Referred By Contac t Referred To Contact Pain Medicine Diagnoses Severe back pain Chronic bilateral thoracic back pain Procedures [place] OFFICE/OUTPATIENT [facility] MDM 60 MINUTES Carlos Enrique Maguire MD [address] [facility] 110 [place] [address] Phone: tel: fax: Kota Petty MD [address] [place] [address] Phone: tel: fax: Referral ID Status Reason Start Date Expiration Date Visits Requested Visits Authorized [id number] Authorized Consult and Treat 06/21/2025 12/18/2025 1 1 Encounter Details Date Type Department Care Team (Late st Contact Info) Description 06/21/2025 Telephone [facility] [place] [facility] 110 [place] [address] Carlos Enrique Maguire MD 112 [facility] 110 [place], [place] [id number] Social History Tobacco Use Types Packs/Day Years [...] other people? Very difficult 06/21/2025 11:28 AM EDT MORRIS VEGA documented as of this encounter Miscellaneous Notes * Telephone Encounter - Abi Diego - 06/21/2025 1:13 PM EDT Patient called and asked for us to send referral to pain management and the fax number that he gaveus is [phone]. documented in this encounter Plan of Treatment Upcoming Encounters Date Type Department Care Team (Late st Contact Info) Description 08/23/2025 10:30 AM EST Office Visit [facility] [place] [facility] [address] [facility] 110 [place] [address] Munira Freedman NP [address] [place] [address] [place] [address] Scheduled Referrals Name Type Priority Associated Diagnoses Order Schedule Ambulatory referral to Pain Medicine Outpatient Referral Routine Severe back pain Chronic bilateral thoracic back pain Expected: 06/21/2025 (Approximate), Expires: 12/19/2025 documented as of this encounter Visit Diagnoses Diagnosis Severe back pain Chronic bilateral thoracic back pain documented in this encounter Additional Health Concerns Assessment Noted Time PHQ-9 Depression Total Score: 16 025 11:28 AM EDT documented as of this encounter Care Teams Behavioral Health Consultant Relationship Specialty Start Date End Date Carlos Enrique Maguire MD [address] [facility] 110 [place] [address] PCP - General Internal Medicine 02/10/23 06/21/25 documented as of this encounter
--- OUTSIDE RECORDS SUMMARY | 2025-06-24 03:15 | XMS_ITS | Encounter Summary ---
Author Organization [facility] Address [address] [place] [address] Care Team Providers Care Mold Filler Plastic Dolls Name Role Phone Carlos Enrique Maguire MD Primary Care Provider [phone] Encounter Details Date Type Department Care Team (Late Contact Info) Description 06/21/2025 Bamboo flowsheet [facility] [place] [facility] [address] [place] [address] [place] [phone] Munira Freedman NP [address] [place] [address] [place] [address] Social History Tobacco Use Types Packs/Day Years [...] [facility] [address] [place] [phone] Munira Freedman NP [address] [place] [address] documented as of this encounter Visit Diagnoses Not on filedocumented in this encounter Additional Health Concerns Assessment Noted Time PHQ-9 Depression Total Score: 16 025 11:28 AM EDT documented as of this encounter Care Teams Mold Filler Plastic Dolls Relationship Specialty Start Date End Date Carlos Enrique Maguire MD 112 [facility] 110 [place] [address] PCP - General Internal Medicine 02/10/23 06/21/25 documented as of this encounter
--- OUTSIDE RECORDS SUMMARY | 2025-06-24 03:15 | XMS_ITS | Encounter Summary ---
Author Organization [facility] Address [address] [facility] [place] [address] Care Team Providers Care Life Insurance Agent Name Role Phone Carlos Enrique Maguire MD Primary Care Provider [phone] Unallocated, Noms Provider Primary Care Provi alba Encounter Details Date Type Department Care Team (Late Contact Info) Description 03/16/2025 Abstract [facility] [place] [facility] [address] [facility] 110 [place] [address] Carlos Enrique Maguire MD [address] [facility] 110 [place] [address] Social History Tobacco Use Types Packs/Day Years [...] Visit [facility] [place] [facility] [address] [facility] 110 [place] [phone] Munira Freedman NP [address] [facility] 110 [place] [address] documented as of this encounter Visit Diagnoses Not on filedocumented in this encounter Additional Health Concerns Assessment Noted Time PHQ-9 Depression Total Score: 0 12/09/19 24 11:00 AM EST documented as of this encounter Care Teams Life Insurance Agent Relationship Specialty Start Date End Date Carlos Enrique Maguire MD [address] [facility] 110 [place] [address] PCP - General Internal Medicine 02/10/23 06/21/25 Unallocated, Noms Provider, [address] [place], [place] [address] PCP - General Family Medicine 06/22/25 documented as of this encounter
--- OUTSIDE RECORDS SUMMARY | 2025-06-24 03:15 | XMS_ITS | Encounter Summary ---
Author Organization [facility] Address [id number] [address] [place] [address] Care Team Providers Care Licensed Weigher Name Role Phone Carlos Enrique Maguire MD Primary Care Provider [phone] Encounter Details Date Type Department Care Team ([facility] Contact Info) Description 06/16/2025 Orders Only [facility] [address] [facility] [place] [phone] Steffi Israel RN Social History Tobacco Use [...] Department Care Team (Late Contact Info) Description 07/11/2025 9:00 AM EDT Office Visit [facility] General Surgery [address] [place] [phone] Monica Ortiz, LEAD JAVA PROGRAMMER-CHLORINATION OPERATOR [address] [place], [place] [phone] 07/19/2025 10:45 AM EDT Office Visit [facility] [address] [place] [address] Jackelin Omalley, PA-C [address] [place], [place] [address] documented as of this encounter Visit Diagnoses Not on filedocumented in this encounter Care Teams Licensed Weigher Relationship Specialty Start Date End Date Carlos Enrique Maguire MD 112 [facility] 110 [place] [address] PCP - General Internal Medicine 03/15/25 documented as of this encounter
--- OUTSIDE RECORDS SUMMARY | 2025-06-24 03:15 | XMS_ITS | Encounter Summary ---
Author Organization [facility] Address [address] [place] [address] Care Team Providers Care Client Development Manager Name Role Phone aCrlos Enrique Maguire MD Primary Care Provider [phone] Encounter Details Date Type Department Care Team (Latest Contact Info) Description 06/21/2025 Travel Social History Tobacco Use Types Packs/Day [...] MORRIS REMY documented as of this encounter Plan of Treatment Upcoming Encounters Date Type Department Care Team (Late st Contact Info) Description 08/23/2025 10:30 AM EST Office Visit [facility] [place] [facility] [address] [place] [address] [place] [address] Munira Freedman SAP BASIS CONSULTANT [address] [place] [address] documented as of this encounter Visit Diagnoses Not on filedocumented in this encounter Additional Health Concerns Assessment Noted Time PHQ-9 Depression Total Score: 16 025 11:28 AM EDT documented as of this encounter Care Teams Client Development Manager Relationship Specialty Start Date End Date Carlos Enrique Maguire MD [address] [place] [address] PCP - General Internal Medicine 02/10/23 06/21/25 documented as of this encounter
--- OUTSIDE RECORDS SUMMARY | 2025-06-24 03:16 | XMS_ITS | Encounter Summary ---
Author Organization [facility] Address [address] [place] [facility] [place] [address] Care Team Providers Care Salad Maker Name Role Phone Carlos Enrique Maguire MD Primary Care Provider [phone] Unallocated, Noms Provider Primary Care Provi alba Encounter Details Date Type Department Care Team (Late Contact Info) Description 06/06/2025 Abstract [facility] [place] [facility] [facility] [address] [facility] 110 [place] [phone] Carlos Enrique Maguire MD [address] [facility] 110 [place] [address] Social History Tobacco Use Types Packs/Day Years [...] Visit [facility] [place] [facility] [address] [facility] 110 [place] [phone] Munira Freedman NP [address] [facility] 110 [place] [address] documented as of this encounter Visit Diagnoses Not on filedocumented in this encounter Additional Health Concerns Assessment Noted Time PHQ-9 Depression Total Score: 0 12/09/19 24 11:00 AM EST documented as of this encounter Care Teams Salad Maker Relationship Specialty Start Date End Date Carlos Enrique Maguire MD [address] [facility] 110 [place] [address] PCP - General Internal Medicine 02/10/23 06/21/25 Unallocated, Noms Provider, [address] [place], [place] [address] PCP - General Family Medicine 06/22/25 documented as of this encounter
--- OUTSIDE RECORDS SUMMARY | 2025-06-24 03:16 | XMS_ITS | Encounter Summary ---
Author Organization [facility] Address [address] [place] [address] Care Team Providers Care [place] Cutter Name Role Phone Carlos Enrique Maguire MD Primary Care Provider Unallocated, Noms Provider Primary Care Provi alba Encounter Details Date Type Department Care Team (Late st Contact Info) Description 06/13/2025 Abstract [facility] [address] [facility] 110 [place] [address] Carlos Enrique Maguire MD [address] [facility] 110 [place], [place] [phone] Social History Tobacco Use Types Packs/Day Years [...] doing things Several days 06/15/2025 3:48 PM JEAN MARIET MORRIS VEGA Feeling down, depressed, or hopeless [...] Description 08/23/2025 10:30 AM EST Office Visit [facility] [address] [facility] 110 [place] [address] Munira Freedman NP [address] [facility] 110 [place] [address] documented as of this encounter Visit Diagnoses Not on filedocumented in this encounter Additional Health Concerns Assessment Noted Time PHQ-9 Depression Total Score: 0 12/09/19 24 11:00 AM EST documented as of this encounter Care Teams Gore Cutter Relationship Specialty Start Date End Date Carlos Enrique Maguire MD [address] [facility] 110 [place] [address] PCP - General Internal Medicine 02/10/23 06/21/25 Unallocated, Henny Justice MD [address] [place] [address] PCP - General Family Medicine 06/22/25 documented as of this encounter
--- NOTE | 2025-06-24 03:33 | ED.GENADUL1 ---
HPI HPI - General Adult General Chief complaint: Skin/Abscess/Foreign Body Stated complaint: infection in chin Time Seen by Provider: 06/24/25 03:20 Source: patient Mode of arrival: walk-in Limitations: no limitations History of Present Illness HPI narrative: Patient is a 59-year-old male presenting to the emergency department for evaluation of a wound on his chin. Patient states he was diagnosed with a infection of the skin on his chin 2 weeks ago. He states he finished a course of doxycycline and has been using mupirocin cream prescribed by his outpatient PCP. Patient states that he is still having persistent pain from the area. He states he squeezes the wound with return of fresh blood multiple times throughout the day. He denies any pus draining from the area. He denies any redness of the chin. Denies any difficulty swallowing, breathing, shortness of breath, chest pain, fevers, chills, or any other systemic symptoms. Related Data Home Medications ?Medication ?Instructions ?Recorded ?Confirmed olanzapine 20 mg tablet 20 mg PO DAILY 11/27/23 06/24/25 sertraline 100 mg tablet 200 mg PO DAILY 11/27/23 06/24/25 atorvastatin 20 mg tablet 20 mg PO DAILY 09/24/24 06/24/25 buspirone 5 mg tablet 5 mg PO TID 09/24/24 06/24/25 alprazolam 0.25 mg tablet 0.5 mg PO DAILY 11/28/24 06/24/25 meloxicam 15 mg tablet 15 mg PO DAILY 06/24/25 06/24/25 Previous Rx's ?Medication ?Instructions ?Recorded diclofenac sodium 75 mg 75 mg PO BID PRN pain #14 tabs 09/24/24 tablet,delayed release orphenadrine citrate 100 mg 100 mg PO BID PRN muscle spasm #14 09/24/24 tablet,extended release tabs Allergies Allergy/AdvReac Type Severity Reaction Status Date / Time Penicillins Allergy Mild swelling Verified 06/24/25 03:18 Opioid HPI Opioid Management Most Recent Opioid Data: Last Pain Scale 9 Today, 03:23 Last ED Pain Assessment Today, 03:23 Review of Systems ROS Status of ROS 10 or more systems reviewed and unremarkable except as noted in history and below PFSH PFSH Social History Smoking status: Current every day smoker Little interest or pleasure in doing things: not at all Feeling down, depressed, or hopeless: not at all Exam Narrative Exam Narrative: CONSTITUTIONAL: Well-appearing, answering questions and following commands appropriately SKIN: On the patient's anterior chin, just below the lip, there is a superficial abrasion with an overlying scab. There is no surrounding cellulitic changes such as induration, fluctuance, purulent drainage, crepitus, erythema, or tenderness to palpation. EYES: Sclerae white. EARS, NOSE, THROAT: Moist oral mucosa. No trismus. Edentulous with healthy gingiva. No facial edema. RESPIRATORY: Nonlabored respirations CARDIOVASCULAR: Normal rate and regular rhythm. There is no S3, S4, murmur, rub. GASTROINTESTINAL: Abdomen is nondistended. MUSCULOSKELETAL: No peripheral edema. NEUROLOGIC: Patient is awake and alert. Facies were symmetrical. Constitutional Vital Signs, click to edit/add: Last Vital Signs Temp 98.1 F 06/24/25 03:13 Pulse 65 06/24/25 03:13 Resp 18 06/24/25 03:13 BP 136/83 06/24/25 03:13 Pulse Ox 99 06/24/25 03:13 O2 Del Method Room Air 06/24/25 03:13 Course Vital Signs Vital signs: Vital Signs Temperature 98.1 F 06/24/25 03:13 Pulse Rate 65 06/24/25 03:13 Respiratory Rate 18 06/24/25 03:13 Blood Pressure 136/83 06/24/25 03:13 Pulse Oximetry 99 06/24/25 03:13 Oxygen Delivery Method Room Air 06/24/25 03:13 Temperature 98.1 F 06/24/25 03:13 Pulse Rate 65 06/24/25 03:13 Respiratory Rate 18 06/24/25 03:13 Blood Pressure 136/83 06/24/25 03:13 Pulse Oximetry 99 06/24/25 03:13 Oxygen Delivery Method Room Air 06/24/25 03:13 Medical Decision Making [facility] Narrative Medical decision making narrative: Patient is a 59-year-old male presenting to the emergency department for evaluation of a chin wound. He was recently treated with oral doxycycline and mupirocin cream over the last 10 days. His vital signs are within normal limits. He is afebrile and hemodynamically stable. Examination was consistent with a superficial abrasion of the left chin, just inferior to the bottom lip. He may have had a previous soft tissue infection, however there is no signs of active infection currently. The patient states the wound is draining blood, but no pus. There is no underlying fluctuance - I have low concern for abscess. There are no cellulitic changes to the skin. Overall, the patient appears well. I do believe the patient is stable for discharge. He was educated on proper wound care, including keeping the area clean with soap/water. He was instructed to refrain from squeezing/picking at the wound, as this is likely contributing to his pain and delayed healing. They were instructed to follow up with his PCP as needed. Return precautions were given including any new or worsening symptoms. Patient understands and agrees to the plan. FINAL IMPRESSION: #Acute chin abrasion DISPOSITION: Discharged home CONDITION: Good Discharge Plan Discharge Chief Complaint: Skin/Abscess/Foreign Body Clinical Impression: Abrasion Patient Disposition: Home, Self-Care Time of Disposition Decision: 03:26 Condition: Good Mode of Transportation: Private Vehicle Prescriptions / Home Meds: No Action atorvastatin 20 mg tablet 20 mg PO DAILY buspirone 5 mg tablet 5 mg PO TID orphenadrine citrate 100 mg tablet extended release 100 mg PO BID PRN (Reason: muscle spasm) Qty: 14 0RF diclofenac sodium 75 mg tablet,delayed release (DR/EC) 75 mg PO BID PRN (Reason: pain ) Qty: 14 0RF alprazolam 0.25 mg tablet 0.5 mg PO DAILY sertraline 100 mg tablet 200 mg PO DAILY olanzapine 20 mg tablet 20 mg PO DAILY meloxicam 15 mg tablet 15 mg PO DAILY Print Language: Grenadian Instructions: Abrasion (ED) Referrals: SILVINA BEARD [Primary Care Provider, Internal Medicine] - 1 week
== END 2025-06-24 03:36 | disposition home or self-care (01) ==
PROVIDERS: Emergency Provider Student in an Organized Health Care Education/Training Program; PCP Internal Medicine
DX: S00.81XA Abrasion of other part of head, initial encounter (principal); X58.XXXA Exposure to other specified factors, initial encounter; F17.200 Nicotine dependence, unspecified, uncomplicated
CPT/HCPCS: 99282

== ENCOUNTER 2025-07-09 17:10 | Emergency (ER) | payer MEDICARE, SELFPAY ==
--- OUTSIDE RECORDS SUMMARY | 2025-07-09 17:18 | XMS_ITS | CCD ---
Author Organization [facility] Care Team Providers Care Regional Sales Associate Name Role Phone CARLOS ENRIQUE MAGUIRE Admitting [...] PURA RUSSELL Consulting Unavailable Josephine Castillo Unavailable Carlos Enrique Maguire MD Unavailable Carlos Enrique Maguire MD Primary Care Provider Carlos Enrique Maguire MD Unavailable Benjy Ackerman Attending Unavailab Benjy Hightower Admitting Unavailab Carlos Enrique Tipton Primary Care Unavailable Carlos Enrique Maguire MD Primary Care Provider Carlos Enrique Maguire II Primary Care Provider [phone] Rebeca Dill APRN Attending Provider Jaqui Zeng APRN Attending Provider Anny Bhatti APRN Attending Provider MICHAEL KONG Attending Unavailable HALEY FREEDMAN Attending Unavailable DORIAN CANADA Attending Unavailable HALEY FREEDMAN Attending Unavailable HALEY FREEDMAN Referring Unavailable MICHAEL KONG Attending Unavailable HALEY FREEDMAN Referring Unavailable HALEY FREEDMAN Referring Unavailable DORIAN CANADA Referring Unavailable HALEY FREEDMAN Attending Unavailable HALEY FREEDMAN Attending Unavailable HALEY FREEDMAN Attending Unavailable Carlos Enrique Maguire MD Primary Care Provider Tonya Hare APRN Attending Provider RAUDEL CROWLEY Primary Care Unavailable VERHOFF, GABI N Attending Unavailable MAGUIRE, CARLOS ENRIQUE B Primary Care Unavailable MAGUIRE, CARLOS ENRIQUE B Referring Unavailable VERHOFF, GABI N Referring Unavailable MAGUIRE, CARLOS ENRIQUE B Primary Care Unavailable VERHOFF, GABI N Attending Unavailable MAGUIRE, CARLOS ENRIQUE B Referring Unavailable MAGUIRE, CARLOS ENRIQUE B Primary Care Unavailable VERHOFF, GABI N Referring Unavailable MAGUIRE, CARLOS ENRIQUE B Primary Care Unavailable PETTY, KOTA E Attending Unavailable PETTY, KOTA E Referring Unavailable MAGUIRE, CARLOS ENRIQUE B Primary Care Unavailable PETTY, KOTA E Admitting Unavailable PETTY, KOTA E Attending Unavailable MAGUIRE, CARLOS ENRIQUE B Referring Unavailable MAGUIRE, CARLOS ENRIQUE B Primary Care Unavailable VERHOFF, GABI N Referring Unavailable MAGUIRE, CARLOS ENRIQUE B Primary Care Unavailable VERHOFF, GABI N Attending Unavailable MAGUIRE, CARLOS ENRIQUE B Referring Unavailable MAGUIRE, CARLO SENRIQUE B Primary Care Unavailable HALEY FREEDMAN Referring Unavailable MAGUIRE, CARLOS ENRIQUE B Primary Care Unavailable PETTY, KOTA E Attending Unavailable PETTY, KOTA E Referring Unavailable MAGUIRE, CARLOS ENRIQUE B Primary Care Unavailable PETTY, KOAT E Admitting Unavailable PETTY, KOTA E Attending Unavailable MAGUIRE, CARLOS ENRIQUE B Referring Unavailable MAGUIRE, CARLOS ENRIQUE B Primary Care Unavailable Allergies Allergy Classification Reported Allergen(s) Allergy Type Date of Onset Reaction(s) Facility (7 sources) Penicillins; Translations: [PENICILLINS] Drug allergy (disorder) 0 Swelling [facility] Repository (1 source) Penicillin Drug Allergy Unknown Citizen.VC Other (20 sources) Penicillins Drug Intolerance 0 Swelling [facility] [employer] Work Phone: (1 source) Penicillins Drug allergy (disorder) 3 [facility] Repository (8 sources) Penicillins Propensity to adverse reactions to drug 0 Swelling [facility] Medications Current Medications Medication Drug Class(es) Dates Sig (Normalized) Sig (Original) atorvastatin 20 mg oral tablet (20 sources) HMG-CoA Reductase Inhibitor Start: 05-17-2025 Atorvastatin 20 mg tablet Active 20 MG PO May 17, 2025 12:00am Complies with drug therapy Start: 12-10-2023 End: 02-07-2025 take 1 tablet by mouth once daily atorvastatin (Lipitor) 20 MG tablet Indications: Mixed hyperlipidemia Take 1 tablet (20 mg) by mouth Daily 30 tablet 2 11/09/2024 Active bacitracin zinc 0.5 unt/mg topical ointment (10 sources) Start: 05-24-2025 bacitracin 500 UNIT/GM ointment Indications: Abrasion Apply topically in the morning and before bedtime. 14 g 1 05/24/2025 Active baclofen 10 mg oral tablet (7 sources) gamma-Aminobutyric Acid-ergic Agonist Start: 05-31-2025 take 1 tablet [...] mg before bedtime. 01/22/2024 11/09/2024 Discontinued (Reorder) cephalexin 500 mg oral capsule (1 source) Cephalosporin Antibacterial Start: 06-30-2025 take 1 capsule by mouth three times daily Cephalexin 500 mg capsule Active 500 MG PO Three times daily 24 04June 30, 2025 12:00am Complies with drug therapy clindamycin 300 mg oral capsule (1 source) Lincosamide Antibacterial Start: 08-04-2023 take 1 capsule by mouth every twelve hours Clindamycin HCl 300 MG 1 capsule Orally every 12 hrs for 7 days Jul, Active cyclobenzaprine hydrochloride 5 mg oral tablet (13 sources) Muscle Relaxant Start: 05-24-2025 End: 01-19-2026 take 1 mg by mouth three times daily as needed Cyclobenzaprine 5 mg tablet Active MG PO Three times daily as needed June 06, 2025 12:00am Complies with drug therapy diclofenac sodium 75 mg delayed release oral tablet (20 sources) Nonsteroidal Anti-inflammatory Drug Start: 09-24-2024 End: 01-11-2026 take 1 tablet by mouth in the morning diclofenac (Voltaren) 75 MG EC tablet Indications: Severe back pain Take 1 tablet (75 mg) by mouth in the morning and 1 tablet (75 mg) before bedtime. 180 tablet 3 01/11/2025 01/11/2026 Active gabapentin 300 mg oral capsule (12 sources) Anti-epileptic Agent Start: 04-26-2025 End: 05-22-2025 [...] 100 MCG Oral for 90 Days Active meloxicam 15 mg oral tablet (13 sources) Nonsteroidal Anti-inflammatory Drug Start: 03-15-2025 End: [...] G Oral for 67 Days Active mupirocin 0.02 mg/mg topical ointment (6 sources) RNA Synthetase Inhibitor Antibacterial Start: 06-30-2025 Mupirocin 2 % ointment Active 1 APPLIC TOPICAL Three times daily 26 07June 30, 2025 12:00am Complies with drug therapy Start: 06-15-2025 End: 06-25-2025 mupirocin (Bactroban) 2 % cr eam Indications: Skin infection Apply topically in the [...] pantoprazole 40 mg delayed release oral tablet (13 sources) Proton Pump Inhibitor Start: 05-24-2025 End: 05-24-2026 Pantoprazole 40 mg tablet,delayed release (DR/EC) Active MG PO June 06, 2025 12:00am Complies with drug therapy predniSONE 10 mg oral tablet (7 sources) Start: 06-15-2025 End: 07-01-2025 take 4 tablets by mouth in the morning predniSONE (DELTASONE) 10 mg tablet Take by mouth in the morning. 40 mg taper as directed . 06/15/2025 07/01/2025 Active sertraline 100 mg oral [...] 02/28/2025 Active sucralfate 1000 mg oral tablet (9 sources) Aluminum Complex Start: 06-30-2025 Sucralfate 1 gram tablet Active PO June 30, 2025 12:00am Complies with drug therapy Start: 06-15-2025 End: 06-15-2026 take 1 tablet by mouth before mealtime sucralfate (CARAFATE) 1 gram tablet Take 1 tablet (1 g total) by mouth in the morning and 1 tablet (1 g total) in the evening. Take before meals. 06/15/2025 Active tiZANidine 4 mg oral tablet (20 [...] mg by mouth Daily 09/29/2024 Discontinued (Other) doxycycline hyclate 100 mg oral capsule (2 sources) Tetracycline-class Drug Start: 06-13-2025 End: 06-30-2025 take 1 capsule by mouth twice daily Doxycycline Hyclate 100 mg capsule Discontinued 100 MG PO Twice daily 20 June 13, 2025 12:00am June 30, 2025 11:09am LORazepam 0.5 mg oral tablet (20 sources) Benzodiazepine Start: 06-13-2025 End: 06-30-2025 Lorazepam 0.5 mg tablet Discontinued MG PO June 13, 2025 12:00am June 30, 2025 11:10am Start: 03-02-2025 End: 07-06-2025 Lorazepam 1 mg tablet Discon tinued 1 MG PO May 17, 2025 12:00am June 13, 2025 10:06am Start: 02-28-2025 End: 02-28-2025 take 1 tablet [...] anxiety 30 tablet 2 11/09/2024 02/07/2025 Active OLANZapine 5 mg oral tablet (8 sources) [...] mg / trimethoprim 160 mg oral tablet (4 sources) Dihydrofolate Reductase Inhibitor Antibacterial, Sulfonamide Antimicrobial Start: 05-17-2025 End: 06-06-2025 take 1 tablet by mouth every twelve hours Sulfamethoxazole-Trimethoprim (Bactrim Ds) 800-160 mg tablet Discontinued 1 TAB PO Every 12 hours May 17, 2025 12:00am June 06, 2025 9:03am traMADol hydrochloride 50 mg oral tablet (20 sources) Opioid Agonist Start: 05-17-2025 End: 06-30-2025 Tramadol 50 mg tablet Discontinued MG PO May 17, 2025 12:00am June 30, 2025 11:09am Start: 03-02-2025 End: 05-01-2025 take 2 tablets [...] 7 days 28 tablet 11/29/2024 12/06/2024 Active Problems Active Problems Problem Classification Problem Date Documented Date Episodic/Chronic Abdominal pain (10 sources) Unspecified abdominal pain; Translations: [Generalized abdominal pain] Onset: 12-18-19 19 02-28-2025 Episodic Adjustment disorders (3 sources) Mixed anxiety and depressive disorder; Translations: [...] Onset: 12-24-19 19 07-01-2023 Chronic Essential hypertension (4 sources) Hypertensive disorder; Translations: [Essential (primary) hypertension] [...] Onset: 12-05-19 Episodic Open wounds of extremities (2 sources) Puncture wound of left hand; Translations: [Puncture wound without foreign body of left hand, initial encounter] 06-06-2025 Episodic Other aftercare (1 source) Other meterman (current) drug therapy; Translations: [OTH USP CURRENT DRUG THERAPY] Onset: 12-07-19 Episodic Other [...] for malignant neoplasm of prostate] 02-28-2025 Episodic Other skin disorders (2 sources) Folliculitis; Translations: [Follicular disorder, unspecified] 06-13-2025 Episodic Yazmin-; endo-; and myocarditis; cardiomyopathy (except that caused by tuberculosis or sexually transmitted disease) (2 sources) Pericardial effusion; Translations: [Pericardial effusion ([facility])] 06-15-2025 Episodic Residual codes; unclassified (4 sources) [...] 02-28-2025 Episodic Skin and subcutaneous tissue infections (10 sources) Impetigo; Translations: [Impetigo, unspecified] 05-17-2025 Episodic Spondylosis; intervertebral disc disorders; other back problems (20 sources) Degeneration of thoracic intervertebral disc; Translations: [Other intervertebral disc degeneration, thoracic region] Onset: 03-15-20 25 09-29-2024 Chronic Sprains and strains (2 sources) Strain of neck muscle; Translations: [Strain of muscle, fascia and tendon at neck level, initial encounter] 11-09-2024 Episodic Substance-related disorders (20 sources) Nicotine dependence, cigarettes, uncomplicated; Translations: [History of drug abuse] Onset: 12-07-19 10 Resolved : 12-09-19 24 12-09-2023 Chronic Superficial injury; contusion (1 source) Blister (nonthermal) of oral cavity, initial encounter Episodic Thyroid disorders (20 sources) Hypothyroidism; Translations: [Hypothyroidism, unspecified] Onset: 07-01-20 23 07-01-2023 Chronic Unclassified (1 source) Anxiety, Med Refill [...] hyperhidrosis] Onset: 12-09-2009 Resolved: 12-09-2023 12-09-2023 Episodic Spondylosis; intervertebral disc disorders; other back problems (20 sources) Backache; Translations: [Dorsalgia, unspecified] Onset: 03-15-2025 09-29-2024 Episodic Unclassified (2 sources) Patient encounter status [...] above: Performed By: #### 9 27, 866, 65204, 78979, 5363, 1759, 7600 #### [facility] [address], [address] [place] [id number] Antisubmarine Weapons Officer: Brian Alvares MD Hematocrit (Bld) [Volume fraction] 41.3 % Normal 38.5-50.0 [facility] Comment on above: Performed By: #### 9 27, 866, 87416, 81093, 5363, 1759, 7600 #### [facility] [address], [address] [place] [phone] Antisubmarine Weapons Officer: Brian Alvares MD Hemoglobin (Bld) [Mass/Vol] 12.8 g/dL Low 13.2-17.1 [facility] Comment on above: Performed By: #### 9 27, 866, 72594, 77417, 5363, 1759, 7600 #### [facility] [place] [address] Antis[employer]ine Weapons Officer: Brian Alvares MD MCH (RBC) [Entitic mass] 28.7 pg Normal 27.0-33.0 [facility] Comment on above: Performed By: #### 9 27, 866, 85446, 39390, 5363, 1759, 7600 #### [facility] [place] [address] Antis[employer]ine Weapons Officer: Brian Alvares MD MCHC (RBC) [Mass/Vol] 31.0 [...] patient's clinical condition. Performed By: #### 9 27, 866, 08723, 16029, 5363, 1759, 7600 #### [facility] [place] [address] Antisubmarine Weapons Officer: Brian Alvares MD MCV (RBC) [Entitic vol] 92.6 fL Normal 80.0-100.0 [facility] Comment on above: Performed By: #### 9 27, 866, 12398, 52412, 5363, 1759, 7600 #### [facility] [place] [address] Antisubmarine Weapons Officer: Brian Alvares MD Platelet mean volume (Bld) [Entitic vol] 10.2 fL Normal 7.5-12.5 [facility] Comment on above: Performed By: #### 9 27, 866, 95982, 58329, 5363, 1759, 7600 #### [facility] [address] [place] [address] Antisubmarine Weapons Officer: Brian Alvares MD Platelets (Bld) [#/Vol] 326 10*3/uL Normal 140-400 [facility] Comment on above: Performed By: #### 9 27, 866, 23485, 80302, 5363, 1759, 7600 #### [facility] of [place] [address] Antisubmarine Weapons Officer: Brian Alvares MD RBC (Bld) [#/Vol] 4.46 10*6/uL Normal 4.20-5.80 [facility] Comment on above: Performed By: #### 9 27, 866, 56339, 83720, 5363, 1759, 7600 #### [facility] [place] [address] Antisubmarine Weapons Officer: Brian Alvares MD WBC (Bld) [#/Vol] 9.0 10*3/uL Normal 3.8-10.8 [facility] Comment on above: Performed By: #### 9 27, 866, 55366, 75693, 5363, 1759, 7600 #### [facility] [place] [address] Antis[employer]ine Weapons Officer: Brian Alvares MD [facility] METABOL[facility] 03-01-2025 Albumin [Mass/Vol] 4.3 g/dL Normal 3.6-5.1 [facility] Comment on above: Performed By: #### 9 27, 866, 26744, 88112, 5363, 1759, 7600 #### [facility] [place] [address] Antis[employer]ine Weapons Officer: Brian Alvares MD Albumin/Globulin [Mass ratio] 1.7 {ratio} Normal 1.0-2.5 [facility] Comment on above: Performed By: #### 9 27, 866, 08591, 20052, 5363, 1759, 7600 #### [facility] [place] [address] Antisubmarine Weapons Officer: Brian Alvares MD ALP [Catalytic activity/Vol] 83 U/L Normal 35-144 [facility] Comment on above: Performed By: #### 9 27, 866, 04233, 68889, 5363, 1759, 7600 #### [facility] [place] [address] Antisubmarine Weapons Officer: Brian Alvares MD ALT [Catalytic activity/Vol] 17 U/L Normal 9-46 [facility] Comment on above: Performed By: #### 9 27, 866, 47488, 56062, 5363, 1759, 7600 #### [facility] [place] [address] Antisubmarine Weapons Officer: Brian Alvares MD AST [Catalytic activity/Vol] 18 U/L Normal 10-35 [facility] Comment on above: Performed By: #### 9 27, 866, 84709, 38002, 5363, 1759, 7600 #### [facility] [place] [address] Antisub[employer]ine Weapons Officer: Brian Alvares MD Bilirubin [Mass/Vol] 0.3 mg/dL Normal 0.2-1.2 [facility] Comment on above: Performed By: #### 9 27, 866, 83915, 82812, 5363, 1759, 7600 #### [facility] [place] [address] Antisubmarine Weapons Officer: Brian Alvares MD BUN/CREATININE RATIO SEE NOTE: Normal 6-22 [facility] Comment on above: Result Comment: Not Reported: BUN and Creatinine are within reference range. Performed By: #### 9 27, 866, 23558, 26713, 5363, 1759, 7600 #### [facility] [place] [address] Antisubmarine Weapons Officer: Brian Alvares MD Calcium [Mass/Vol] 9.1 mg/dL Normal 8.6-10.3 [facility] Comment on above: Performed By: #### 9 27, 866, 99875, 51721, 5363, 1759, 7600 #### [facility] of [address], [address] [place] [address] Antisub[employer]ine Weapons Officer: Brian Alvares MD Chloride [Moles/Vol] 104 mmol/L Normal 98-110 [facility] Comment on above: Performed By: #### 9 27, 866, 46653, 70822, 5363, 1759, 7600 #### [facility] of [address], [address] [place] [address] Antisub[employer]ine Weapons Officer: Brian Alvares MD CO2 [Moles/Vol] 30 mmol/L Normal 20-32 [facility] Comment on above: Performed By: #### 9 27, 866, 11627, 03731, 5363, 175, 7600 #### [facility] [place] [address] Antisubmarine Weapons Officer: Brian Alvares MD Creatinine [Mass/Vol] 0.82 mg/dL Normal 0.70-1.30 [facility] Comment on above: Performed By: #### 9 27, 866, 49890, 65149, 5363, 175, 7600 #### [facility] [place] [address] Antisub[employer]ine Weapons Officer: Brian Alvares MD GFR/1.73 sq M.predicted among non-blacks MDRD (S/P/Bld) [Vol rate/Area] 102 mL/min/{1.73_m2} Normal > OR = 60 [facility] Comment on above: Performed By: #### 9 27, 866, 69374, 07839, 5363, 1759, 7600 #### [facility] of [address], [address] [place] [address] Antisub[employer]ine Weapons Officer: Brian Alvares MD Globulin (S) [Mass/Vol] 2.5 g/dL Normal 1.9-3.7 [facility] Comment on above: Performed By: #### 9 27, 866, 10480, 78083, 5363, 1759, 7600 #### [facility] of [address], [address] [place] [address] Antisub[employer]ine Weapons Officer: Brian Alvares MD Glucose [Mass/Vol] 92 mg/dL Normal 65-99 [facility] Comment on above: Result Comment: Fasting reference interval Performed By: #### 9 27, 866, 61270, 20406, 5363, 1759, 7600 #### [facility] [place] [address] Antis[employer]ine Weapons Officer: Brian Alvares MD Potassium [Moles/Vol] 4.7 mmol/L Normal 3.5-5.3 [facility] Comment on above: Performed By: #### 9 27, 866, 55973, 84024, 5363, 1759, 7600 #### [facility] [place] [address] Antis[employer]ine Weapons Officer: Brian Alvares MD Protein [Mass/Vol] 6.8 g/dL Normal 6.1-8.1 [facility] Comment on above: Performed By: #### 9 27, 866, 61260, 97889, 5363, 1759, 7600 #### [facility] [address], [address] [place] [address] Antis[employer]ine Weapons Officer: Brian Alvares MD Sodium [Moles/Vol] 141 mmol/L Normal 135-146 [facility] Comment on above: Performed By: #### 9 27, 866, 86000, 10118, 5363, 1759, 7600 #### [facility] [place] [address] Antis[employer]ine Weapons Officer: Brian Alvares MD Urea nitrogen [Mass/Vol] 12 mg/dL Normal 7-25 [facility] Comment on above: Performed By: #### 9 27, 866, 00331, 21276, 5363, 1759, 7600 #### [facility] of [place] [address] Antis[employer]ine Weapons Officer: Brian Alvares MD LIPID PANEL, [facility] 02-03 Cholesterol [Mass/Vol] 142 mg/dL Normal <200 [facility] Comment on above: Order Comment: FASTI NG:YES FASTING: YES Performed By: #### 9 27, 866, 44878, 78867, 5363, 1759, 7600 #### [facility] [address], [address] [place] [address] Antis[employer]ine Weapons Officer: Brian Alvares MD Cholesterol in HDL [Mass/Vol] 49 mg/dL Normal > OR = 40 [facility] Comment on above: Order Comment: FASTI NG:YES FASTING: YES Performed By: #### 9 27, 866, 45320, 82682, 5363, 1759, 7600 #### [facility] [address], [address] [place] [address] Antis[employer]ine Weapons Officer: Brian Alvares MD Cholesterol in LDL [Mass/Vol] 74 mg/dL Normal [facility] Comment on above: Order Comment: FASTI NG:YES FASTING: YES Result Comment: Refe rence range: <100 Desirable range <100 mg/dL for primary prevention; <70 mg/dL for patients with CHD or diabetic patients with > or = 2 CHD risk factors. LDL-C is now calculated using the Aman-Julienne calculation, which is a validated novel method providing better accuracy than the Friedewald equation in the estimation of LDL-C. Aman SS et al. CLARISA. 2013;310(19): 2590-3059 (http://education.Ubiquigent/faq/DJB503) Performed By: #### 9 27, 866, 04580, 35494, 5363, 1759, 7600 #### [facility] [address], [address] [place] [address] Antis[employer]ine Weapons Officer: Brian Alvares MD Cholesterol.total/Cho lesterol in HDL [Mass ratio] 2.9 {ratio} Normal <5.0 [facility] Comment on above: Order Comment: FASTI NG:YES FASTING: YES Performed By: #### 9 27, 866, 26569, 75559, 5363, 1759, 7600 #### [facility] [address], [address] [place], [place] [address] Antisubmarine Weapons Officer: Brian Alvares MD NON HDL CHOLESTEROL 93 mg/dL (calc) Normal <130 [facility] Comment on above: Order Comment: FASTI NG:YES FASTING: YES Result Comment: For patients with diabetes plus 1 major ASCVD risk factor, treating to a non-HDL-C goal of <100 mg/dL (LDL-C of <70 mg/dL) is considered a therapeutic option. Performed By: #### 9 27, 866, 31894, 72701, 5363, 1759, 7600 #### [facility] [address], [address] [place] [address] [employer]ine Weapons Officer: Brian Alvares MD Triglyceride [Mass/Vol] 111 mg/dL Normal <150 [facility] Comment on above: Order Comment: FASTI NG:YES FASTING: YES Performed By: #### 9 27, 866, 86595, 81641, 5363, 1759, 7600 #### [facility] [address], [address] [place] [address] Antis[employer]ine Weapons Officer: Brian Alvares MD PSA, TOTALon 03-01-2025 PSA, TOTAL 0.26 ng/mL Normal < OR = 4.00 [facility] Comment on above: Result Comment: The total PSA value from this assay system is standardized against the WHO standard. The test result will be approximately 20% lower when compared to the equimolar-standardized total PSA ([place]). Comparison of serial PSA results should be interpreted with this fact in mind. This test was performed using the Siemens chemiluminescent method. Values obtained from different assay methods cannot be used interchangeably. PSA levels, regardless of value, should not be interpreted as absolute evidence of the presence or absence of disease. Performed By: #### 9 27, 866, 39994, 27547, 5363, 1759, 7600 #### [facility] [address], [address] [place] [address] Antis[employer]ine Weapons Officer: Brian Alvares MD T4, FREEon 03-01-2025 Free T4 [Mass/Vol] 1.0 ng/dL Normal 0.8-1.8 [facility] Comment on above: Performed By: #### 9 27, 866, 14840, 98071, 5363, 1759, 7600 #### [facility] [address], [address] [place] [address] Antis[employer]ine Weapons Officer: Brian Alvares MD TSH W/REFLEX TO FT4on 2024 TSH W/REFLEX TO FT4 5.15 mIU/L High 0.40-4.50 [facility] Comment on above: Performed By: #### 9 27, 866, 98287, 48071, 5363, 1759, 7600 #### [facility] [address], [address] [place] [address] Antis[employer]ine Weapons Officer: Brian Alvares MD VITAMIN B12on 03-01-2025 Cobalamin [...] symptoms. Performed By: #### 9 27, 866, 07848, 93214, 5363, 1759, 7600 #### [facility] [address], [address] [place] [address] Antisub[employer]ine Weapons Officer: Brian Alvares MD XR ABDOMEN 2 VIEWon [...] Basophils (Bld) [#/Vol] 0.1 103/ul Normal 0.0-0.1 [facility] Comment on above: Performed By: #### C BC #### [facility] [address] [id number] [place] Basophils/100 WBC (Bld) 1.1 % Normal 0.2-2.0 [facility] Comment on above: Performed By: #### C BC #### [facility] [address] [place] [address] [place] Eosinophils (Bld) [#/Vol] 0.2 103/ul Normal 0.0-0.7 [facility] Comment on above: Performed By: #### C BC #### [facility] [address] [place] [address] [place] Eosinophils/100 WBC (Bld) 2.2 % Normal 0.9-7.0 [facility] Comment on above: Performed By: #### C BC #### [facility] [address] [place], [place] [id number] [place] Erythrocyte distribution width (RBC) [Ratio] 15.1 % Critically high 11.0-15.0 [facility] Comment on above: Performed By: #### C BC #### [facility] [address] [place], [place] [id number] [place] Hematocrit (Bld) [Volume fraction] 37.2 % Critically low 42.0-54.0 [facility] Comment on above: Performed By: #### C BC #### [facility] [address] [place], [place] [id number] [place] Hemoglobin (Bld) [Mass/Vol] 12.4 g/dL Critically low 14.0-18.0 [facility] Comment on above: Performed By: #### C BC #### [facility] [address] [place], [place] [id number] [place] IG # 0.04 10e3/ul Critically high 0.00-0.03 [facility] Comment on above: Performed By: #### C BC #### [facility] [address] [place] [id number] [place] Dorian IG % 0.4 % Normal 0.0-0.5 [facility] Comment on above: Performed By: #### C BC #### [facility] [address] [place] [id number] [place] Lymphocytes (Bld) [#/Vol] 2.9 103/ul Normal 1.2-3.8 [facility] Comment on above: Performed By: #### C BC #### [facility] [address] [place], [place] [id number] [place] Lymphocytes/100 WBC (Bld) 31.6 % Normal 20.5-60.0 [facility] Comment on above: Performed By: #### C BC #### [facility] [address] [place], [place] [id number] [place] MANUAL DIFF REQ NO Normal [facility] Comment on above: Performed By: #### C BC #### [facility] [address] [place], [place] [id number] [place] MCH (RBC) [Entitic mass] 27.0 pg Normal 25.9-34.0 [facility] Comment on above: Performed By: #### C BC #### [facility] [address] [place], [place] [id number] [place] MCHC (RBC) [Mass/Vol] 33.3 g/dL Normal 29.9-35.2 [facility] Comment on above: Performed By: #### C BC #### [facility] [address] [place], [place] [id number] [place] MCV (RBC) [Entitic vol] 81.0 fL Normal 80.0-94.0 [facility] Comment on above: Performed By: #### C BC #### [facility] [address] [place], [place] [id number] [place] Monocytes (Bld) [#/Vol] 0.6 103/ul Normal 0.3-0.8 [facility] Comment on above: Performed By: #### C BC #### [facility] [address] [place], [place] [address] [place] Monocytes/100 WBC (Bld) 7.0 % Normal 1.7-12.0 [facility] Comment on above: Performed By: #### C BC #### [facility] [address] [place], [place] [address] [place] Neutrophils (Bld) [#/Vol] 5.3 103/ul Normal 1.4-6.5 [facility] Comment on above: Performed By: #### C BC #### [facility] [address] [place], [place] [address] [place] Neutrophils/100 WBC (Bld) 57.7 % Normal 43.0-75.0 [facility] Comment on above: Performed By: #### C BC #### [facility] [address] [place], [place] [address] [place] Platelet mean volume (Bld) [Entitic vol] 9.7 fL Normal 9.5-13.5 [facility] Comment on above: Performed By: #### C BC #### [facility] [address] [place], [place] [address] [place] Platelets (Bld) [#/Vol] 241 103/ul Normal 150-450 [facility] Comment on above: Performed By: #### C BC #### [facility] [address] [place], [place] [address] [place] RBC (Bld) [#/Vol] 4.59 106/ul Critically low 4.70-6.10 [facility] Comment on above: Performed By: #### C BC #### [facility] [address] [place], [place] [address] [place] WBC (Bld) [#/Vol] 9.2 103/ul Normal 4.0-11.0 [facility] Comment on above: Performed By: #### C BC #### [facility] [address] [place], [place] [address] [place] CTA CHEST WO W CONon 020 CTA [...] hilar lymph nodes, likely reactive. Normal [facility] D-DIMERon 12-05-2019 D-DIMER COMMENTS SEE BELOW Normal [facility] Comment on above: Result Comment: Incr eases [...] generalizd hospitalization. Performed By: #### D DIM ####[facility] [address] Dorian Fibrin D-dimer FEU IA (Bld) [Mass/Vol] 0.71 ug/mL Critically high 0.19-0.50 [facility] Comment on above: Result Comment: test repeated, critical value verified Performed By: #### D DIM ####[facility] [address] [place] [address] PROF 14(COMP METB)on 020 Albumin [Mass/Vol] 3.6 g/dL Normal 3.5-5.0 [facility] Comment on above: Performed By: #### C MP, TROP ####[facility] [address] Dorian Albumin/Globulin [Mass ratio] 1.0 {ratio} Normal [facility] Comment on above: Performed By: #### C MP, TROP ####[facility] [address] [place], [place] [address]Skermb Dorian ALP [Catalytic activity/Vol] 84 U/L Normal 38-126 [facility] Comment on above: Performed By: #### C MP, TROP ####[facility] [address] [place], [place] [address]Divtlk Dorian ALT [Catalytic activity/Vol] 25 U/L Normal 21-72 [facility] Comment on above: Performed By: #### C MP, TROP ####[facility] [address] [place], [place] [address]Pwefnw Dorian Anion gap [Moles/Vol] 17.1 mmol/L Normal [facility] Comment on above: Performed By: #### C MP, TROP ####[facility] [address] [place], [place] [address]Ylnchy Dorian AST [Catalytic activity/Vol] 19 U/L Normal 17-59 [facility] Comment on above: Performed By: #### C MP, TROP ####[facility] [address] [place], [place] [address]Dazpmx Dorian Bilirubin Ql (U) 0.5 mg/dL Normal 0.2-1.3 [facility] Comment on above: Performed By: #### C MP, TROP ####[facility] [address] [place], [place] [address]Eebsqe Dorian Calcium [Mass/Vol] 8.8 mg/dL Normal 8.4-10.2 [facility] Comment on above: Performed By: #### C MP, TROP ####[facility] [address] [place], [place] [address]Yeuink Dorian Chloride [Moles/Vol] 104 mmol/L Normal 98-107 [facility] Comment on above: Performed By: #### C MP, TROP ####[facility] [address] [place], [place] [address]Iyydeq Dorian CO2 [Moles/Vol] 21.3 mmol/L Critically low 22.0-30.0 [facility] Comment on above: Performed By: #### C MP, TROP ####[facility] [address] [place], [place] [address]Pgpwzx Dorian Creatinine [Mass/Vol] 1.02 mg/dL Normal 0.66-1.25 [facility] Comment on above: Performed By: #### C MP, TROP ####[facility] [address] [place], [place] [address]Tbftoy Dorian EGFR-AF ALGERIAN >60 Normal >=60 [facility] Comment on above: Performed By: #### C MP, TROP ####[facility] [address] [place], [place] [address]Kwthoh Dorian EGFR-NON AF ALGERIAN >60 Normal >=60 [facility] Comment on above: Performed By: #### C MP, TROP ####[facility] [address] [place], [place] [address]Gerken Dorian Globulin (S) [Mass/Vol] 3.6 g/dL Normal [facility] Comment on above: Performed By: #### C MP, TROP ####[facility] [address]28[address] [place], [place] [address]Qmhssp Dorian Glucose [Mass/Vol] 99 mg/dL Normal 74-106 [facility] Comment on above: Performed By: #### C MP, TROP ####[facility] [address] [place] [address]Gerken Dorian Potassium [Moles/Vol] 3.4 mmol/L Normal 3.4-5.0 [facility] Comment on above: Performed By: #### C MP, TROP ####[facility] [address] [place], [place] [address]Tjomxl Dorian Protein [Mass/Vol] 7.2 g/dL Normal 6.1-8.2 [facility] Comment on above: Performed By: #### C MP, TROP ####[facility] [address] [place] [phone] Dorian Sodium [Moles/Vol] 139 mmol/L Normal 137-145 [facility] Comment on above: Performed By: #### C MP, TROP ####[facility] [address] [place], [place] [address]GojqioLoc Lord Urea nitrogen [Mass/Vol] 19.0 mg/dL Normal 9.0-20.0 [facility] Comment on above: Performed By: #### C MP, TROP ####[facility] [address] [place], [place] [address]BlmxkwLoc Lord Urea nitrogen/Creatinine [Mass ratio] 18.6 mg/mg Normal [facility] Comment on above: Performed By: #### C MP, TROP ####[facility] [address] [place] [id number] PROTIMEon 12-05-2019 INR Coag (PPP) [Relative time] 1.05 {INR} Normal [facility] Comment on above: Performed By: #### P T, PTT #### [facility] [address] [place] [address] [place] PT Coag (PPP) [Time] 10.9 s Normal 9.0-11.6 [facility] Comment on above: Performed By: #### P T, PTT #### [facility] [address] [place] [phone] [place] PT Coag (PPP) [Time] PLEASE NOTE: NORMAL RANGE CHANGE 06-22-2014 DUE TO REAGENT LOT CHANGE Normal [facility] Comment on above: Performed By: #### P T, PTT #### [facility] [address] [place] [address] [place] PT Coag (PPP) [Time] SEE BELOW Normal [facility] Comment on above: Result Comment: ADDI RED INR: 2.0 - 3.0 CONDITIONS NOT LISTED BELOW 2.5 - 3.5 FOR PROSTHETIC HEART VALVE REPLACEMENT 2.5 - 3.5 RECURRENT THROMBOSIS Performed By: #### P T, PTT #### [facility] [address] [place] [phone] Locannalise Lord PTTon 12-05-2019 aPTT Coag (Bld) [Time] 24.8 s Normal 22.3-36.2 [facility] Comment on above: Performed By: #### P T, PTT ####[facility] [address] [place] [phone] Lord aPTT Coag (Bld) [Time] PLEASE NOTE: NORMAL RANGE CHANGE 08-29-2015 DUE TO REAGENT LOT CHANGE Normal [facility] Comment on above: Performed By: #### P T, PTT ####[facility] [address] [place] [address] TROPONIN - Ion 12-05-2019 Troponin I.cardiac [Mass/Vol] SEE BELOW Normal [facility] Comment on above: Result Comment: <0.0 34 ng/ml NEGATIVE 0.034-0.119 INDETERMINATE 0.120 AMI CUT OFF Performed By: #### C MP, TROP ####[facility] [address] [place], [place] [address]Loc Lord Troponin I.cardiac [Mass/Vol] ng/mL Normal <=0.034 [facility] Comment on above: Performed By: #### C MP, TROP ####[facility] [address] [place], [place] [address]Loc Lord CBC AUTO DIFFon 12-04-2019 Basophils (Bld) [#/Vol] 0.1 103/ul Normal 0.0-0.1 [facility] Comment on above: Performed By: #### C BC #### [facility] [address] [place] [address] [place] Basophils/100 WBC (Bld) 1.2 % Normal 0.2-2.0 [facility] Comment on above: Performed By: #### C BC #### [facility] [address] [place] [address] [place] Eosinophils (Bld) [#/Vol] 0.1 103/ul Normal 0.0-0.7 [facility] Comment on above: Performed By: #### C BC #### [facility] [address] [place] [address] [place] Eosinophils/100 WBC (Bld) 1.1 % Normal 0.9-7.0 [facility] Comment on above: Performed By: #### C BC #### [facility] [address] [place] [phone] [place] Erythrocyte distribution width (RBC) [Ratio] 14.8 % Normal 11.0-15.0 [facility] Comment on above: Performed By: #### C BC #### [facility] [address] [place] [phone] [place] Hematocrit (Bld) [Volume fraction] 42.7 % Normal 42.0-54.0 [facility] Comment on above: Performed By: #### C BC #### [facility] [address] [place] [address] [place] Hemoglobin (Bld) [Mass/Vol] 14.8 g/dL Normal 14.0-18.0 [facility] Comment on above: Performed By: #### C BC #### [facility] [address] [place], [place] [address] [place] IG # 0.05 10e3/ul Critically high 0.00-0.03 [facility] Comment on above: Performed By: #### C BC #### [facility] [address] [place], [place] [address] [place] IG % 0.4 % Normal 0.0-0.5 [facility] Comment on above: Performed By: #### C BC #### [facility] [address] [place], [place] [id number] [place] Lymphocytes (Bld) [#/Vol] 2.7 103/ul Normal 1.2-3.8 [facility] Comment on above: Performed By: #### C BC #### [facility] [address] [place], [place] [address] [place] Lymphocytes/100 WBC (Bld) 23.1 % Normal 20.5-60.0 [facility] Comment on above: Performed By: #### C BC #### [facility] [address] [place] [phone] [place] MANUAL DIFF REQ NO Normal [facility] Comment on above: Performed By: #### C BC #### [facility] [address] [place], [place] [address] Locannalise Orren MCH (RBC) [Entitic mass] 27.1 pg Normal 25.9-34.0 [facility] Comment on above: Performed By: #### C BC #### [facility] [address] [place] [address] Locannalise Lord MCHC (RBC) [Mass/Vol] 34.7 g/dL Normal 29.9-35.2 [facility] Comment on above: Performed By: #### C BC #### [facility] [address] [place] [address] [place] MCV (RBC) [Entitic vol] 78.2 fL Critically low 80.0-94.0 [facility] Comment on above: Performed By: #### C BC #### [facility] [address] [place] [address] [place] Monocytes (Bld) [#/Vol] 1.0 103/ul Critically high 0.3-0.8 [facility] Comment on above: Performed By: #### C BC #### [facility] [address] [place] [address] [place] Monocytes/100 WBC (Bld) 8.4 % Normal 1.7-12.0 [facility] Comment on above: Performed By: #### C BC #### [facility] [address] [place] [address] [place] Neutrophils (Bld) [#/Vol] 7.6 103/ul Critically high 1.4-6.5 [facility] Comment on above: Performed By: #### C BC #### [facility] [address] [place] [address] [place] Neutrophils/100 WBC (Bld) 65.8 % Normal 43.0-75.0 [facility] Comment on above: Performed By: #### C BC #### [facility] [address] [place] [address] [place] Platelet mean volume (Bld) [Entitic vol] 9.3 fL Critically low 9.5-13.5 [facility] Comment on above: Performed By: #### C BC #### [facility] [address] [place] [phone] Locannalise Orren Platelets (Bld) [#/Vol] 285 103/ul Normal 150-450 [facility] Comment on above: Performed By: #### C BC #### [facility] [address] [place] [address] [place] RBC (Bld) [#/Vol] 5.46 106/ul Normal 4.70-6.10 [facility] Comment on above: Performed By: #### C BC #### [facility] [address] [place], [place] [address] [place] WBC (Bld) [#/Vol] 11.6 103/ul Critically high 4.0-11.0 [facility] Comment on above: Performed By: #### C BC #### [facility] [address] [place] [address] [place] PROF CHEM 8 (BAS METB)on Anion gap [Moles/Vol] 20.8 mmol/L Normal [facility] Comment on above: Performed By: #### T ROP, TSH, T4, BMP #### [facility] [address] [place] [address] [place] Calcium [Mass/Vol] 9.9 mg/dL Normal 8.4-10.2 [facility] Comment on above: Performed By: #### T ROP, TSH, T4, BMP #### [facility] [address] [place] [address] Loc [place] Chloride [Moles/Vol] 102 mmol/L Normal 98-107 [facility] Comment on above: Performed By: #### T ROP, TSH, T4, BMP #### [facility] [address] [place] [address] [place] CO2 [Moles/Vol] 18.4 mmol/L Critically low 22.0-30.0 [facility] Comment on above: Performed By: #### T ROP, TSH, T4, BMP #### [facility] [address] [place] [address] [place] Creatinine [Mass/Vol] 1.50 mg/dL Critically high 0.66-1.25 [facility] Comment on above: Performed By: #### T ROP, TSH, T4, BMP #### [facility] [address] [place] [address] [place] EGFR-AF ALGERIAN 59 mL/min/1.73m2 Critically low >=60 [facility] Comment on above: Performed By: #### T ROP, TSH, T4, BMP #### [facility] [address] [place] [address] [place] EGFR-NON AF ALGERIAN 49 mL/min/1.73m2 Critically low >=60 [facility] Comment on above: Performed By: #### T ROP, TSH, T4, BMP #### [facility] [address] [place] [address] [place]ian Glucose [Mass/Vol] 101 mg/dL Normal 74-106 [facility] Comment on above: Performed By: #### T ROP, TSH, T4, BMP #### [facility] [address] [place] [address] [place] Potassium [Moles/Vol] 3.2 mmol/L Critically low 3.4-5.0 [facility] Comment on above: Performed By: #### T ROP, TSH, T4, BMP #### [facility] [address] [place] [address] [place] Sodium [Moles/Vol] 138 mmol/L Normal 137-145 [facility] Comment on above: Performed By: #### T ROP, TSH, T4, BMP #### [facility] [address] [place] [address] Loc [place]ian Urea nitrogen [Mass/Vol] 26.0 mg/dL Critically high 9.0-20.0 [facility] Comment on above: Performed By: #### T ROP, TSH, T4, BMP #### [facility] [address] [place] [address] Loc Dorian Urea nitrogen/Creatinine [Mass ratio] 17.3 mg/mg Normal [facility] Comment on above: Performed By: #### T ROP, TSH, T4, BMP #### [facility] [address] [place] [address] Loc Lord T4on 12-04-2019 T4 [Mass/Vol] 7.40 ug/dL Normal 5.53-11.00 [facility] Comment on above: Performed By: #### T ROP, TSH, T4, BMP #### [facility] [address] [place] [address] [facility] 12-04-2019 Troponin I.cardiac [Mass/Vol] ng/mL Normal <=0.034 [facility] Comment on above: Performed By: #### T ROP, TSH, T4, BMP #### [facility] [address] [place] [address] Loc Dorian Troponin I.cardiac [Mass/Vol] SEE BELOW Normal [facility] Comment on above: Result Comment: <0.0 34 ng/ml NEGATIVE 0.034-0.119 INDETERMINATE 0.120 AMI CUT OFF Performed By: #### T ROP, TSH, T4, BMP #### [facility] [address] [place] [address] Loc Dorian TSHon 12-04-2019 TSH Qn SEE BELOW Normal [facility] Comment on above: Result Comment: <0.3 4 UIU/ml HYPERTHYROID 0.34-5.60 UIU/ml EUTHYROID >5.60 UIU/ml HYPOTHYROID Performed By: #### T ROP, TSH, T4, BMP #### [facility] [address] [place] [address] Loc Lord TSH Qn 11.107 uIU/mL Critically high 0.470-4.680 [facility] Comment on above: Performed By: #### T ROP, TSH, T4, BMP #### [facility] [address] [place] [address] Loc Lord XR CHEST 2 Von 12-04-2019 [...] COPD. No focal consolidative opacity. Normal [facility] XR CINERADIOGRAPHYon 019 XR CINERADIOGRAPHY [address] [place] [address] Patient: OLE STEPHENS. Exam Date: 12/17/2018 : 1965 Gender:M Ordering : DR CARLOS ENRIQUE MAGUIRE M.D. Admission #: [id number] Family : Order #: [id number] CLICK HERE TO VIEW EXAM RADIOLOGY REPORT [...] M.D. on 12/17/2018 at 14:01 Normal [facility] XR UPPER GI W AIR KUBon 12-03 XR UPPER GI W AIR KUB [address] [place] [address] Patient: OLE STEPHENS. Exam Date: 12/17/2018 : 1965 Gender:M Ordering : DR CARLOS ENRIQUE MAGUIRE M.D. Admission #: [id number] Family : Order #: [id number] CLICK HERE TO VIEW EXAM RADIOLOGY REPORT [...] Hilliard M.D. on 12/17/2018 at 14:01 Normal [facility] Vital Signs Date Time Vital Sign Value Performing Clinician Facility 06-30-2025 11:15-0400 Body height 175.26 cm Carlos Enrique Maguire II Work Phone: [facility] 06-30-2025 11:15-0400 Body mass index (BMI) [Ratio] 16.1 kg/m2 Carlos Enrique Maguire II Work Phone: [facility] 06-30-2025 11:15-0400 Body temperature 98.3 [degF] Carlos Enriqueelisabeth Maguire II Work Phone: [facility] 06-30-2025 11:15-0400 Body weight 49.49 kg Carlos Enrique Maguire II Work Phone: [facility] 06-30-2025 11:15-0400 Diastolic blood pressure 87 mm[Hg] Carlos Enrique Maguire II Work Phone: [facility] 06-30-2025 11:15-0400 Heart rate 54 /min Carlos Enrique Maguire II Work Phone: [facility] 06-30-2025 11:15-0400 Respiratory rate 18 /min Carlos Enrique Maguire II Work Phone: [facility] 06-30-2025 11:15-0400 SaO2% (BldA) [Mass fraction] 99 % Carlos Enrique Maguire II Work Phone: [facility] 06-30-2025 11:15-0400 Systolic blood pressure 133 mm[Hg] Carlos Enriqeu Maguire II Work Phone: [facility] 06-21-2025 11:32-0400 Body height 175.3 cm Haley Lowpoint [employer] Work Phone: [facility] 06-21-2025 11:32-0400 Body mass index (BMI) [Ratio] 16.69 kg/m2 Haley Tano [employer]PER[employer] Work Phone: [facility] 06-21-2025 11:32-0400 Body weight 51.26 kg Haley Tano [employer] Work Phone: [facility] 06-21-2025 11:32-0400 Diastolic blood pressure 78 mm[Hg] Haley Lowpoint [employer]PER[employer] Work Phone: [facility] 06-21-2025 11:32-0400 Heart rate 80 /min Haley Lowpoint [employer]PER[employer] Work Phone: [facility] 06-21-2025 11:32-0400 Respiratory rate 16 /min Haley Lowpoint [employer]PER[employer] Work Phone: [facility] 06-21-2025 11:32-0400 SaO2% (BldA) [Mass fraction] 98 % Haley Lowpoint [employer]PER[employer] Work Phone: [facility] 06-21-2025 11:32-0400 Systolic blood pressure 122 mm[Hg] Haley Lowpoint [employer]PER[employer] Work Phone: [facility] 06-15-2025 15:49-0400 Body height 175.3 cm Haley Lowpoint [employer]PER[employer] Work Phone: [facility] 06-15-2025 15:49-0400 Body mass index (BMI) [Ratio] 16.83 kg/m2 Haley Lowpoint [employer]PER[employer] Work Phone: [facility] 06-15-2025 15:49-0400 Body weight 51.71 kg Haley Tano [employer]PER[employer] Work Phone: [facility] 06-15-2025 15:49-0400 Diastolic blood pressure 68 mm[Hg] Haley Tano [employer]PER[employer] Work Phone: [facility] 06-15-2025 15:49-0400 Heart rate 84 /min Haley Freedman [employer]PER[employer] Work Phone: [facility] 06-15-2025 15:49-0400 Respiratory rate 17 /min Haley Reynavely [employer]PER[employer] Work Phone: [facility] 06-15-2025 15:49-0400 SaO2% (BldA) [Mass fraction] 96 % Haley Reynavely [employer]PER[employer] Work Phone: [facility] 06-15-2025 15:49-0400 Systolic blood pressure 130 mm[Hg] Haley Freedman [employer]PER[employer] Work Phone: [facility] 06-13-2025 10:12-0400 Body height 175.26 cm Carlos Enrique Maguire II Work Phone: [facility] 06-13-2025 10:12-0400 Body mass index (BMI) [Ratio] 16.2 kg/m2 Carlos nErique Maguire II Work Phone: [facility] 06-13-2025 10:12-0400 Body temperature 98 [degF] Carlos Enrique Maguire II Work Phone: [facility] 06-13-2025 10:12-0400 Body weight 49.95 kg Carlos Enrique Maguire II Work Phone: [facility] 06-13-2025 10:12-0400 Diastolic blood pressure 87 mm[Hg] Carlos Enrique Maguire II Work Phone: [facility] 06-13-2025 10:12-0400 Heart rate 75 /min Carlos Enriqueelisabeth Maguire II Work Phone: [facility] 06-13-2025 10:12-0400 Respiratory rate 18 /min Carlos Enrique Maguire II Work Phone: [facility] 06-13-2025 10:12-0400 SaO2% (BldA) [Mass fraction] 99 % Carlos Enrique Maguire II Work Phone: [facility] 06-13-2025 10:12-0400 Systolic blood pressure 129 mm[Hg] Carlos Enrique Maguire II Work Phone: [facility] 06-07-2025 12:55-0400 Body height 175.3 cm Gabi Verhoff PA-C Work Phone: [facility] [employer] [facility] 06-07-2025 12:55-0400 Body mass index (BMI) [Ratio] 15.8 kg/m2 Gabi Verhoff PA-C Work Phone: [facility] [employer] [facility] 06-07-2025 12:55-0400 Body weight 48.53 kg Gabi Verhoff PA-C Work Phone: [facility] [employer] [facility] 06-07-2025 12:55-0400 Diastolic blood pressure 94 mm[Hg] Gabi Verhoff PA-C Work Phone: [facility] [employer] [facility] 06-07-2025 12:55-0400 Heart rate 100 /min Gabi Verhoff PA-C Work Phone: [facility] [employer] [facility] 06-07-2025 12:55-0400 Respiratory rate 18 /min Gabi Verhoff PA-C Work Phone: [facility] [employer] [facility] 06-07-2025 12:55-0400 SaO2% (BldA) [Mass fraction] 100 % Gabi Verhoff PA-C Work Phone: [facility] [employer] [facility] 06-07-2025 12:55-0400 Systolic blood pressure 129 mm[Hg] Gabi Verhoff PA-C Work Phone: [facility] 06-06-2025 09:08-0400 Body height 175.26 cm Carlos Enrique Maguire II Work Phone: [facility] 06-06-2025 09:08-0400 Body mass index (BMI) [Ratio] 16.7 kg/m2 Carlos Enrique Maguire II Work Phone: [facility] 06-06-2025 09:08-0400 Body temperature 98.2 [degF] Carlos Enrique Maguire II Work Phone: [facility] 06-06-2025 09:08-0400 Body weight 51.31 kg Carlos Enrique Maguire II Work Phone: [facility] 06-06-2025 09:08-0400 Diastolic blood pressure 76 mm[Hg] Carlos Enrique Maguire II Work Phone: [facility] 06-06-2025 09:08-0400 Heart rate 75 /min Carlos Enrique Maguire II Work Phone: [facility] 06-06-2025 09:08-0400 Respiratory rate 16 /min Carlos Enrique Maguire II Work Phone: [facility] 06-06-2025 09:08-0400 SaO2% (BldA) [Mass fraction] 99 % Carlos Enrique Maguire II Work Phone: [facility] 06-06-2025 09:08-0400 Systolic blood pressure 144 mm[Hg] Carlos Enrique Maguire II Work Phone: [facility] 05-24-2025 10:35-0400 Body height 175.3 cm Haley Freedman CATALYST SUPERVISOR Work Phone: [facility] 05-24-2025 10:35-0400 Body mass index (BMI) [Ratio] 16.69 kg/m2 Haley Freedman CATALYST SUPERVISOR Work Phone: [facility] 05-24-2025 10:35-0400 Body weight 51.26 kg Haley Freedman CATALYST SUPERVISOR Work Phone: [facility] 05-24-2025 10:35-0400 Diastolic blood pressure 78 mm[Hg] Haley Freedman CATALYST SUPERVISOR Work Phone: [facility] 05-24-2025 10:35-0400 Heart rate 55 /min Haley Freedman CATALYST SUPERVISOR Work Phone: [facility] 05-24-2025 10:35-0400 Respiratory rate 17 /min Haley Freedman CATALYST SUPERVISOR Work Phone: [facility] 05-24-2025 10:35-0400 SaO2% (BldA) [Mass fraction] 99 % Haley Freedman CATALYST SUPERVISOR Work Phone: [facility] 05-24-2025 10:35-0400 Systolic blood pressure 110 mm[Hg] Haley Freedman NP Work Phone: [facility] 05-17-2025 09:49-0400 Body height 175.26 cm Carlos Enrique Maguire II Work Phone: [facility] 05-17-2025 09:49-0400 Body mass index (BMI) [Ratio] 16.7 kg/m2 Carlos Enrique Maguire II Work Phone: [facility] 05-17-2025 09:49-0400 Body temperature 97.9 [degF] Carlos Enrique Maguire II Work Phone: [facility] 05-17-2025 09:49-0400 Body weight 51.25 kg Carlos Enrique Maguire II Work Phone: [facility] 05-17-2025 09:49-0400 Diastolic blood pressure 79 mm[Hg] Carlos Enrique Maguire II Work Phone: [facility] 05-17-2025 09:49-0400 Heart rate 58 /min Carlos Enriqueelisabeth Maguire II Work Phone: [facility] 05-17-2025 09:49-0400 Respiratory rate 14 /min Carlos Enrique Maguire II Work Phone: [facility] 05-17-2025 09:49-0400 SaO2% (BldA) [Mass fraction] 99 % Carlos Enriqueleisabeth Maguire II Work Phone: [facility] 05-17-2025 09:49-0400 Systolic blood pressure 131 mm[Hg] Carlos Enrique Maguire II Work Phone: [facility] 04-26-2025 08:50-0400 Diastolic blood pressure 84 mm[Hg] Gabi Verhoff PA-C Work Phone: [facility] 04-26-2025 08:50-0400 Heart rate 51 /min Gabi Verhoff PA-C [facility] 04-26-2025 08:50-0400 Respiratory rate 18 /min Gabi Verhoff PA-C Work Phone: [facility] 04-26-2025 08:50-0400 SaO2% (BldA) [Mass fraction] 100 % Gabi Verhoff PA-C Work Phone: [facility] [employer] [facility] 04-26-2025 08:50-0400 Systolic blood pressure 126 mm[Hg] Gabi Verhoff PA-C Work Phone: [facility] [employer] [facility] 03-15-2025 12:29-0400 Body height 175.3 cm Gabi Verhoff PA-C Work Phone: [facility] [employer] 03-15-2025 12:29-0400 Body mass index (BMI) [Ratio] 16.54 kg/m2 Gabi Verhoff PA-C Work Phone: [facility] [employer] [facility] 03-15-2025 12:29-0400 Body weight 50.8 kg Gabi Verhoff PA-C Work Phone: [facility] [employer] [facility] 03-15-2025 12:29-0400 Diastolic blood pressure 95 mm[Hg] Gabi Verhoff PA-C Work Phone: [facility] [employer] 03-15-2025 12:29-0400 Heart rate 59 /min Gabi Verhoff PA-C Work Phone: [facility] [employer] [facility] 03-15-2025 12:29-0400 Respiratory rate 18 /min Gabi Verhoff PA-C Work Phone: [facility] [employer] [facility] 03-15-2025 12:29-0400 SaO2% (BldA) [Mass fraction] 100 % Gabi Verhoff PA-C Work Phone: [facility] [employer] [facility] 03-15-2025 12:29-0400 Systolic blood pressure 141 mm[Hg] Gabi Verhoff PA-C Work Phone: [facility] [employer] [facility] 02-28-2025 10:11-0400 Body height 175.3 cm Haley Freedman NP Work Phone: [facility] 02-28-2025 10:11-0400 Body mass index (BMI) [Ratio] 16.89 kg/m2 Haley Freedman CATALYST SUPERVISOR Work Phone: [facility] 02-28-2025 10:11-0400 Body weight 51.89 kg Haley Freedman CATALYST SUPERVISOR Work Phone: [facility] 02-28-2025 10:11-0400 Diastolic blood pressure 76 mm[Hg] Haley Freedman CATALYST SUPERVISOR Work Phone: [facility] 02-28-2025 10:11-0400 Heart rate 54 /min Haley Freedman CATALYST SUPERVISOR Work Phone: [facility] 02-28-2025 10:11-0400 Respiratory rate 16 /min Haley Freedman CATALYST SUPERVISOR Work Phone: [facility] 02-28-2025 10:11-0400 SaO2% (BldA) [Mass fraction] 98 % Haley Freedman CATALYST SUPERVISOR Work Phone: [facility] 02-28-2025 10:11-0400 Systolic blood pressure 112 mm[Hg] Haley Freedman CATALYST SUPERVISOR Work Phone: [facility] 02-06-2025 08:38-0400 Body height 175.3 cm Dorian Hemmer PA Work Phone: [facility] 02-06-2025 08:38-0400 Body mass index (BMI) [Ratio] 17.1 kg/m2 Dorian Hemmer PA Work Phone: [facility] 02-06-2025 08:38-0400 Body temperature 97.3 [degF] Dorian Hemmer PA Work Phone: [facility] 02-06-2025 08:38-0400 Body weight 52.53 kg Dorian Hemmer PA Work Phone: [facility] 02-06-2025 08:38-0400 Diastolic blood pressure 84 mm[Hg] Dorian Hemmer PA Work Phone: [facility] 02-06-2025 08:38-0400 Heart rate 54 /min Dorian Hemmer PA Work Phone: [facility] 02-06-2025 08:38-0400 Respiratory rate 16 /min Dorian Canada PA Work Phone: [facility] 02-06-2025 08:38-0400 SaO2% (BldA) [Mass fraction] 98 % Dorian Arellanomer PA Work Phone: [facility] 02-06-2025 08:38-0400 Systolic blood pressure 122 mm[Hg] Dorian Canada PA Work Phone: [facility] 11-29-2024 11:05-0500 Body height 175.3 cm Haley Freedman CATALYST SUPERVISOR Work Phone: [facility] 11-29-2024 11:05-0500 Body mass index (BMI) [Ratio] 16.69 kg/m2 Haley Freedman CATALYST SUPERVISOR Work Phone: [facility] 11-29-2024 11:05-0500 Body weight 51.26 kg Haley Freedman CATALYST SUPERVISOR Work Phone: [facility] 11-29-2024 11:05-0500 Diastolic blood pressure 74 mm[Hg] Haley Freedman CATALYST SUPERVISOR Work Phone: [facility] 11-29-2024 11:05-0500 Heart rate 56 /min Haley Freedman CATALYST SUPERVISOR Work Phone: [facility] 11-29-2024 11:05-0500 Respiratory rate 17 /min Haley Freedman CATALYST SUPERVISOR Work Phone: [facility] 11-29-2024 11:05-0500 SaO2% (BldA) [Mass fraction] 99 % Haley Freedman CATALYST SUPERVISOR Work Phone: [facility] 11-29-2024 11:05-0500 Systolic blood pressure 122 mm[Hg] Haley Freedman CATALYST SUPERVISOR Work Phone: [facility] 11-09-2024 14:00-0500 Body height 175.3 cm Michael Kong CATALYST SUPERVISOR Work Phone: [facility] 11-09-2024 14:00-0500 Body mass index (BMI) [Ratio] 17.66 kg/m2 Michael Kong CATALYST SUPERVISOR Work Phone: [facility] 11-09-2024 14:00-0500 Body weight 54.25 kg Michael Kong CATALYST SUPERVISOR Work Phone: [facility] 11-09-2024 14:00-0500 Diastolic blood pressure 72 mm[Hg] Michael Kong CATALYST SUPERVISOR Work Phone: [facility] 11-09-2024 14:00-0500 Heart rate 67 /min Michael Kong CATALYST SUPERVISOR Work Phone: [facility] 11-09-2024 14:00-0500 Respiratory rate 17 /min Michael Kong CATALYST SUPERVISOR Work Phone: [facility] 11-09-2024 14:00-0500 SaO2% (BldA) [Mass fraction] 99 % Michael Kong CATALYST SUPERVISOR Work Phone: [facility] 11-09-2024 14:00-0500 Systolic blood pressure 110 mm[Hg] Michael Kong CATALYST SUPERVISOR Work Phone: [facility] 09-29-2024 13:06-0500 Body height 175.3 cm Michael Kong CATALYST SUPERVISOR Work Phone: [facility] 09-29-2024 13:06-0500 Body mass index (BMI) [Ratio] 17.43 kg/m2 Michael Kong CATALYST SUPERVISOR Work Phone: [facility] 09-29-2024 13:06-0500 Body weight 53.52 kg Michael Kong CATALYST SUPERVISOR Work Phone: [facility] 09-29-2024 13:06-0500 Diastolic blood pressure 82 mm[Hg] Michael Kong CATALYST SUPERVISOR Work Phone: [facility] 09-29-2024 13:06-0500 Heart rate 56 /min Michael Kong CATALYST SUPERVISOR Work Phone: [facility] 09-29-2024 13:06-0500 SaO2% (BldA) [Mass fraction] 97 % Michael Kong CATALYST SUPERVISOR Work Phone: [facility] 09-29-2024 13:06-0500 Systolic blood pressure 118 mm[Hg] Michael Kong CATALYST SUPERVISOR Work Phone: [facility] 08-04-2023 13:25-0400 Body height 180.34 cm Josephine Castillo Other [employer] Other 08-04-2023 13:25-0400 Body mass index (BMI) [Ratio] 18.6 kg/m2 Josephine Csatillo Other [employer] Other 08-04-2023 13:25-0400 Body temperature 97.3 [degF] Josephine Castillo Other [employer] Other 08-04-2023 13:25-0400 Body weight 60.51 kg Josephine Castillo Other [employer] Other 08-04-2023 13:25-0400 Diastolic blood pressure 87 mm[Hg] Josephine Castillo Other [employer] Other 08-04-2023 13:25-0400 Respiratory rate 18 /min Josephine Castillo Other [employer] Other 08-04-2023 13:25-0400 SaO2% (BldA) [Mass fraction] 96 % Josephine Castillo Other [employer] Other 08-04-2023 13:25-0400 Systolic blood pressure 128 mm[Hg] Josephine Castillo Other [employer] Other Encounters Encounter Date Encounter Type Care Provider Facility Start: 06-30-2025 End: 06-30-2025 ambulatory Carlos Enrique Maguire II Work Phone: [facility] Work Phone: Start: 06-30-2025 End: 06-30-2025 Patient encounter procedure Tonya Ananya Corrigan [employer] [facility] [place] Work Phone: Start: 06-27-2025 End: 06-29-2025 Telephone encounter Steffi Israel RN [facility] Start: 06-26-2025 End: 06-26-2025 Refill Haley Freedman CATALYST SUPERVISOR Work Phone: [facility] Comment on above: Situational mixed an xiety and depressive disorder ; Anxiety Start: 06-23-2025 End: 07-06-2025 Telephone encounter Stcaie Carranza RN [facility] Start: 06-23-2025 End: 06-23-2025 ambulatory KOTA Sosa PETTY [facility] Start: 06-21-2025 End: 06-21-2025 Bamboo flowsheet Haley Freedman CATALYST SUPERVISOR Work Phone: [facility] Start: 06-21-2025 End: 06-21-2025 Bamboo flowsheet Haley Freedman CATALYST SUPERVISOR Work Phone: [facility] Start: 06-21-2025 End: 06-21-2025 Office outpatient visit 25 minutes Haley Freedman CATALYST SUPERVISOR Work Phone: [facility] Comment on above: Pre-operative cleara nce (Primary Dx) Start: 06-21-2025 End: 06-21-2025 Preoperative state Haley Freedman CATALYST SUPERVISOR Work Phone: [facility] Work Phone: Start: 06-21-2025 End: 06-21-2025 ambulatory HALEY FREEDMAN Not Available Start: 06-16-2025 End: 06-23-2025 Telephone encounter Steffi Israel RN [facility] Start: 06-15-2025 End: 06-15-2025 Office outpatient visit 25 minutes Haley Freedman CATALYST SUPERVISOR Work Phone: [facility] [place] [facility] Comment on above: Weight loss (Primary Dx); Gastric pain; Nausea and vomiting, unspecified vomiting type; Dysphagia, unspecified type; Pericardial effusion (HHS-HCC); Skin infection Start: 06-15-2025 End: 06-15-2025 ambulatory HALEY FREEDMAN Not Available Start: 06-15-2025 End: 06-15-2025 Bamboo flowsheet Haley Freedman CATALYST SUPERVISOR Work Phone: [facility] [facility] Start: 06-15-2025 End: 06-15-2025 Bamboo flowsheet Haley Freedman CATALYST SUPERVISOR Work Phone: [facility] [place] [facility] Start: 06-13-2025 End: 06-13-2025 ambulatory Carlos Enrique Maguire II Work Phone: [facility] Work Phone: Start: 06-13-2025 End: 06-13-2025 Patient encounter procedure Anny Corrigan [employer] [facility] [place] Work Phone: Start: 06-08-2025 End: 06-08-2025 Vickie Maguire MD Work Phone: [address] Comment on above: Anxiety Start: 06-07-2025 End: 06-07-2025 Office outpatient visit 15 minutes Gabi Omalley PA-C Work Phone: [facility] Comment on above: Thoracic spondylosis without myelopathy (Primary Dx) Start: 06-07-2025 End: 06-07-2025 ambulatory GABI OMALLEY [facility] Start: 06-06-2025 End: 06-06-2025 ambulatory Carlos Enrique Maguire II Work Phone: [facility] Work Phone: Start: 06-06-2025 End: 06-06-2025 Patient encounter procedure Jaqui Zeng [employer] [facility] [place] Work Phone: Start: 05-24-2025 End: 05-24-2025 Bamboo flowsheet Haley Freedman CATALYST SUPERVISOR Work Phone: [facility] [place] [facility] Start: 05-24-2025 End: 05-24-2025 Bamboo flowsheet Haley Freedman CATALYST SUPERVISOR Work Phone: [facility] [facility] Start: 05-24-2025 End: 05-24-2025 ambulatory HALEY FREEDMAN Not Available Start: 05-24-2025 End: 05-24-2025 Office outpatient visit 25 minutes Haley Freedman CATALYST SUPERVISOR Work Phone: [facility] [place] [facility] Comment on above: SOB (shortness of br eath) (Primary Dx); Nausea and vomiting, unspecified vomiting type; Muscle spasm; Abrasion; Gastroesophageal reflux disease with esophagitis without hemorrhage; Murmur, heart Start: 05-22-2025 End: 05-24-2025 Telephone encounter [facility] Comment on above: Thoracic spondylosis without myelopathy; Lumbar spondylosis Start: 05-20-2025 End: 05-22-2025 Refill Carlos Enrique Maguire MD Work Phone: [facility] [place] [facility] Comment on above: Anxiety; Severe back pain Start: 05-19-2025 End: 05-19-2025 [facility] Start: 05-17-2025 End: 05-17-2025 ambulatory Carlos Enrique Maguire II Work Phone: [facility] Work Phone: Start: 05-17-2025 End: 05-17-2025 Patient encounter procedure Rebeca Dill [employer] [facility] Work Phone: Start: 05-08-2025 [facility] Start: 04-26-2025 End: 04-26-2025 Office outpatient visit 25 minutes Gabi Omalley PA-C Work Phone: [facility] Comment on above: Thoracic spondylosis without myelopathy (Primary Dx); Lumbar spondylosis Start: 04-26-2025 End: 04-26-2025 ambulatory [facility] Start: 04-24-2025 End: 04-24-2025 Refill Carlos Enrique Maguire MD Work Phone: [facility] Comment on above: Severe back pain Start: 04-17-2025 End: 04-18-2025 Refill Carlos Enrique Maguire MD Work Phone: [facility] Comment on above: Anxiety Start: 04-08-2025 End: 04-10-2025 Refill Carlos Enrique Maguire MD Work Phone: [facility] Comment on above: Severe back pain Start: 03-16-2025 ambulatory GABI OMALLEY [facility] Start: 03-15-2025 End: 03-15-2025 ambulatory DORIAN Corrigan NANCIE Not Available Start: 03-15-2025 End: 03-15-2025 Telephone encounter Carlos Enrique Maguire MD Work Phone: [facility] Start: 03-15-2025 End: 03-15-2025 ambulatory [facility] Start: 03-15-2025 End: 03-15-2025 Office outpatient new 45 minutes Gabi Daisy Dyerjuarez PA-C Work Phone: [facility] Comment on above: Thoracic spondylosis without myelopathy (Primary Dx); Lumbar spondylosis Start: 03-14-2025 End: 03-15-2025 Telephone encounter Carlos Enrique Maguire MD Work Phone: [facility] Start: 03-10-2025 End: 03-10-2025 ambulatory HALEY FREEDMAN Not Available Start: 03-02-2025 [facility] Start: 02-28-2025 End: 02-28-2025 Bamboo flowsheet Haley Freedman CATALYST SUPERVISOR Work Phone: [facility] Start: 02-28-2025 End: 02-28-2025 Bamboo flowsheet Haley Freedman CATALYST SUPERVISOR Work Phone: [facility] Start: 02-28-2025 End: 02-28-2025 Telephone encounter Haley Freedman NP Work Phone: [facility] Start: 02-28-2025 End: 02-28-2025 ambulatory HALEY FREEDMAN Not Available Start: 02-28-2025 End: 02-28-2025 Assay of hemosiderin, quant Haley Freedman CATALYST SUPERVISOR Work Phone: [facility] Start: 02-28-2025 End: 02-28-2025 Patient encounter procedure Haley Freedman CATALYST SUPERVISOR Work Phone: [facility] Comment on above: Chronic bilateral th oracic back pain (Primary Dx); Reactive depression (situational) (CMS/HCC); Muscle spasm; Vitamin B12 deficiency; Acquired hypothyroidism (CMS/HCC); Mixed hyperlipidemia (CMS/HCC); Orthostatic hypotension; Weight loss; Screening for prostate cancer; Seizure (CMS/HCC); Palpitations; Chronic idiopathic constipation; Other specified anxiety disorders; Bipolar disorder, in partial remission, most recent episode mixed (CMS/HCC); History of drug abuse in remission; History of ETOH abuse; Persistent depressive disorder (CMS/HCC); Routine general medical examination at health care [...] 02-06-2025 Office outpatient visit 15 minutes Dorian Corrigan Nancie PA Work Phone: [facility] Comment on above: Nausea and vomiting, unspecified vomiting type (Primary Dx); Chronic idiopathic constipation; Acute bilateral low back pain without sciatica Start: 02-06-2025 End: 02-06-2025 ambulatory DORIAN CANADA Not Available Start: 01-26-2025 End: 01-26-2025 Refill Carlos Enrique Maguire MD Work Phone: [facility] Comment on above: Severe back pain Start: 01-06-2025 End: 01-10-2025 Refill Carlos Enrique Maguire MD Work Phone: [facility] Comment on above: Severe back pain Start: 11-29-2024 End: 11-29-2024 Bamboo flowsheet Haley Freedman CATALYST SUPERVISOR Work Phone: [facility] Start: 11-29-2024 End: 11-29-2024 Bamboo flowsheet Haley Freedman CATALYST SUPERVISOR Work Phone: [facility] Start: 11-29-2024 End: 11-29-2024 Office outpatient visit 25 minutes Haley Freedman CATALYST SUPERVISOR Work Phone: [facility] Comment on above: Severe back pain; Anxiety Start: 11-29-2024 End: 11-29-2024 ambulatory HALEY FREEDMAN Not Available Start: 11-28-2024 End: 11-28-2024 [facility] Start: 11-09-2024 End: 11-09-2024 Bamboo flowsheet Michael Kong CATALYST SUPERVISOR Work Phone: [facility] Start: 11-09-2024 End: 11-09-2024 Bamboo flowsheet Michael Kong CATALYST SUPERVISOR Work Phone: [facility] Start: 11-09-2024 End: 11-09-2024 Office outpatient visit 25 minutes Michael Kong CATALYST SUPERVISOR Work Phone: [facility] Comment on [...] Not Available Start: 10-04-2024 ambulatory Benjy Carbajal acility:[facility] Start: 10-03-2024 End: 10-14-2024 Telephone encounter Marsha Schofield MA [facility] Start: 09-29-2024 End: 09-29-2024 Bamboo flowsheet Michael Kong CATALYST SUPERVISOR Work Phone: [facility] Start: 09-29-2024 End: 09-29-2024 Bamboo flowsheet Michael Kong CATALYST SUPERVISOR Work Phone: [facility] Start: 09-29-2024 End: 09-29-2024 Office outpatient visit 25 minutes Michael Kong CATALYST SUPERVISOR Work Phone: [facility] Comment on above: Hospital discharge f ollow-up (Primary Dx); Degenerative disc disease, thoracic; Severe back pain; Muscle spasm; Reactive depression (situational) (CMS/HCC); Situational mixed anxiety and depressive disorder (CMS/HCC); Weight loss Start: 09-29-2024 End: 09-29-2024 ambulatory MICHAEL KONG Not Available Start: 08-04-2023 End: 08-04-2023 ambulatory Josephine Castillo Other [employer] Other Start: 08-04-2023 Office outpatient ne w 20 minutes Josephine Castillo [facility] [place] Start: 12-05-2019 [...] Td Vaccines (2 - Td or Tdap) [facility] Start: 06-23-2026 Tobacco Screening Tobacco Screening [facility] Start: 06-07-2026 Adult BMI Screening Adult BMI Screening [facility] Start: 06-07-2026 Tobacco Screening Tobacco Screening [facility] Start: 03-15-2026 Adult BMI Screening Adult BMI Screening [facility] Start: 02-28-2026 Medicare Annual Wellness (AWV) Medicare Annual Wellness (AWV) [facility] Start: 08-23-2025 End: 08-23-2025 Patient encounter procedure 08/23/2025 10:30 AM EST Office Visit [facility] [place] [facility] [address] [facility] [address] [place] [address] Haley Freedman NP [address] [facility] [address] [place] [address] [facility] Start: 07-19-2025 End: 07-19-2025 Patient encounter procedure 07/19/2025 10:45 AM EDT Office Visit [facility] [address] [place] [id number] Gabi Omalley, PAAngC [address] [place] [address] [facility] Start: 07-11-2025 End: 07-11-2025 Patient encounter procedure 07/11/2025 9:00 AM EDT Office Visit [facility] [address] [place] [phone] Monica Ortiz, CO TEACHER-[employer] ADMINISTRATOR [address] [place] [address] [facility] Start: 06-23-2025 End: 06-23-2025 Admission to same day surgery center 06/23/2025 10:07 AM EDT - 06/23/2025 10:14 AM EDT Surgery [facility] [address] [place] [id number] Kota Petty MD [address] [place] [place], [place] [id number] INJECTION FACET JOINT Bilateral T 3/4, 4/5 [04188 (CPT )] [facility] Comment on above: INJECTION FACET JOINT Bilateral T 3/4, 4 /5 [43258 (CPT )] Start: 06-23-2025 End: 06-23-2025 Njx dx/ther agt pvrt facet jt crv/thrc 1 level INJECTION FACET JOINT Thoracic spondylosis without myelopathy 06/23/2025 10:07 AM EDT [facility] Start: 06-23-2025 Subsequent hospital visit by physician 06/23/2025 10:07 AM EDT Hospital Encounter [facility] [address] [place] [phone] Kota Petty MD [address] [place] [address] [facility] Start: 06-21-2025 End: 06-21-2025 Patient encounter procedure 06/21/2025 11:30 AM EDT Office Visit [facility] [place] [facility] [address] [place] [id number] Haley Freedman NP [address] [place] [address] Arrived [facility] Comment on above: Arrived Start: 06-15-2025 End: 06-15-2025 Patient encounter procedure 06/15/2025 4:00 PM EDT Office Visit HENNY Prieto Ramon [address] [place] [address] Haley Freedman, CATALYST SUPERVISOR [address] [place] [address] Arrived HENNY [facility] Ramon Comment on above: Arrived Start: 06-08-2025 End: 06-08-2025 Patient encounter procedure 06/08/2025 7:30 AM EDT Appointment [facility] [address] [place] [id number] [facility] Start: 06-07-2025 End: 06-07-2025 Patient encounter procedure [facility] Start: 06-05-2025 Influenza vaccination [facility] Start: 05-24-2025 End: 05-24-2027 Echocardiogram 2D complete Echocardiogram 2D complete Echocardiography Routine Murmur, heart SOB (shortness of breath) Expected: 05/24/2025 (Approximate), Expires: 05/24/2027 [facility] Work Phone: Comment on above: Expected: 05/24/2025 (Approximate), Expi res: 05/24/2027 Start: 05-24-2025 End: 05-24-2025 Patient encounter procedure [facility] Start: 05-19-2025 End: 05-19-2025 Admission to same day surgery center 05/19/2025 9:45 AM EDT - 05/19/2025 9:52 AM EDT Surgery [facility] Pain Procedures [address] [place] [id number] Kota Petty MD [address] [facility] [place] [place] [id number] INJECTION FACET JOINT Bilateral T 3/4, 4/5 [28384 (CPT )] [facility] Comment on above: INJECTION FACET JOINT Bilateral T 3/4, 4 /5 [14992 (CPT )] Start: 05-19-2025 End: 05-19-2025 Njx dx/ther agt pvrt facet jt crv/thrc 1 level INJECTION FACET JOINT Thoracic spondylosis without myelopathy 05/19/2025 9:45 AM EDT [facility] Start: 05-19-2025 Subsequent hospital visit by physician 05/19/2025 9:45 AM EDT Hospital Encounter [facility] [address] [place] [phone] Kota Petty MD [address] [place] [address] [facility] Start: 04-26-2025 End: 04-26-2025 Patient encounter procedure 04/26/2025 8:45 AM EDT Office Visit [facility] [address] [place] [phone] Gabi Omalley, PA-C [address] [place] [address] [facility] Start: 03-15-2025 End: 03-15-2026 XR Chest 2 Views XR chest 2 views Imaging Routine Rib pain Expected: 03/15/2025, Expires: 03/15/2026 [facility] Work Phone: Comment on above: Expected: 03/15/2025, Expires: Start: 03-15-2025 End: 03-15-2026 XR Ribs Views and Chest PA [facility] Work Phone: Comment on above: Expected: 03/15/2025, Expires: Start: 02-28-2025 End: 02-28-2026 CBC panel - Blood by Automated count CBC Lab Routine Orthostatic hypotension Expected: 02/28/2025 (Approximate), Expires: 02/28/2026 [facility] Comment on above: Expected: 02/28/2025 (Approximate), Expi res: 02/28/2026 Start: 02-28-2025 End: 02-28-2026 Cobalamin (Vitamin B12) [Mass/volume] in Serum or Plasma Vitamin B12 Lab Routine Vitamin B12 deficiency Expected: 02/28/2025 (Approximate), Expires: 02/28/2026 [facility] Comment on above: Expected: 02/28/2025 (Approximate), Expi res: 02/28/2026 Start: 02-28-2025 End: 02-28-2026 Comprehensive metabolic 2000 panel - Serum or Plasma Comprehensive metabolic panel Lab Routine Acquired hypothyroidism (CMS/HCC) Orthostatic hypotension Weight loss Expected: 02/28/2025 (Approximate), Expires: 02/28/2026 [facility] Comment on above: Expected: 02/28/2025 (Approximate), Expi res: 02/28/2026 Start: 02-28-2025 End: 02-28-2026 CT Chest for screening WO contrast [facility] Comment on above: Expected: 02/28/2025 (Approximate), Expi res: 02/28/2026 Expected: 02/28/2025 , Expires: 02/28/2026 Start: 02-28-2025 End: 02-28-2026 Lipid 1996 panel - Serum or Plasma Lipid panel Lab Routine Mixed hyperlipidemia (CMS/HCC) Expected: 02/28/2025 (Approximate), Expires: 02/28/2026 [facility] Comment on above: Expected: 02/28/2025 (Approximate), Expi res: 02/28/2026 Start: 02-28-2025 End: 02-28-2026 Prostate specific Ag [Mass/volume] in Serum or Plasma PSA Lab Routine Screening for prostate cancer Expected: 02/28/2025 (Approximate), Expires: 02/28/2026 [facility] Comment on above: Expected: 02/28/2025 (Approximate), Expi res: 02/28/2026 Start: 02-28-2025 End: 02-28-2026 TSH W/REFLEX TO FT4 TSH W/REFLEX TO FT4 Lab Routine Acquired hypothyroidism (CMS/HCC) Expected: 02/28/2025 (Approximate), Expires: 02/28/2026 [facility] Work Phone: Comment on above: Expected: 02/28/2025 (Approximate), Expi res: 02/28/2026 Start: 02-28-2025 End: 02-28-2026 XR Abdomen Single view XR ABDOMEN 2 VIEW Imaging Routine Chronic idiopathic constipation Expected: 02/28/2025, Expires: 02/28/2026 [facility] Comment [...] [address] [place] [address] Michael Kong, CATALYST SUPERVISOR [address] [place] [address] [facility] Start: 02-06-2025 End: 02-06-2025 Patient encounter procedure 02/06/2025 8:30 AM EDT Office Visit [facility] [address] [place] [address] Dorian Canada, PA [address] [place] [address] Arrived [facility] Comment on above: Arrived Start: 12-08-2024 Medicare Annual Wellness (AWV) Medicare Annual Wellness (AWV) [facility] Start: 12-08-2024 Screening for malignant neoplasm of colon Colorectal Cancer Screening [facility] Comment on above: Postponed from 1966 (Patient Refus ed) Start: 11-29-2024 End: 11-29-2024 Patient encounter procedure 11/29/2024 11:00 AM EST Office Visit [facility] [address] [place] [address] Haley Freedman NP [address] [place] [address] Arrived [facility] Comment on above: Arrived Start: 11-09-2024 End: 11-09-2024 Patient encounter procedure 11/09/2024 2:00 PM EST Office Visit [facility] [address] [place] [address] Michael Kogn, CATALYST SUPERVISOR [address] [place] [address] Arrived [facility] Comment on above: Arrived Start: 10-27-2024 End: 10-27-2024 Patient encounter procedure 10/27/2024 1:30 PM EST Office Visit [facility] [address] [place] [address] Michael Kong, CATALYST SUPERVISOR [address] [place] [address] [facility] Start: 09-29-2024 End: 09-29-2024 Patient encounter procedure 09/29/2024 1:00 PM EST Office Visit [facility] [address] [place] [address] Michael Kong, CATALYST SUPERVISOR [address] [place] [address] Arrived [facility] Comment on above: Arrived Start: 06-05-2024 Influenza vaccination Influenza Vaccine (#1) [facility] Start: 2016 Administration of varicella zoster vaccine Zoster (Shingles) Vaccine (1 of 2) [facility] Start: 1985 DTaP,Tdap and Td Vaccines (1 - Tdap) DTaP,Tdap and Td Vaccines (1 - Tdap) [facility] Start: 1984 Adult BMI Follow Up Plan Adult BMI Follow Up Plan [facility] Start: 1978 Depression Screening Depression Screening [facility] Start: 1978 Tobacco Screening Tobacco Screening [facility] Start: 1966 Screening for malignant neoplasm of colon [facility] Start: 1966 Tobacco Counseling Tobacco Counseling [facility] Immunizations Immunization Date Immunization Notes Care Provider Fa cilidana 06-06-2025 tetanus and diphther ia toxoids, adsorbed, preservative free, for adult use (5 Lf of tetanus toxoid and 2 Lf of diphtheria toxoid) Carlos Enrique Maguire II Work Phone: [facility] 06-22-2020 influenza, injectabl e, quadrivalent, preservative free Michael Kong CATALYST SUPERVISOR Work Phone: [facility] 06-22-2020 influenza virus vaccine, unspecified formulation Michael Kong CATALYST SUPERVISOR Work Phone: [facility] 07-08-2019 influenza, injectabl e, quadrivalent, contains preservative Michael Kong CATALYST SUPERVISOR Work Phone: [facility] 06-22-2017 seasonal influenza, intradermal, preservative free Michael Kong CATALYST SUPERVISOR Work Phone: [facility] 07-06-2015 seasonal influenza, intradermal, preservative free Michael Kong CATALYST SUPERVISOR Work Phone: [facility] 07-07-2014 seasonal influenza, intradermal, preservative free Michael Kong CATALYST SUPERVISOR Work Phone: [facility] Payers Date Payer Category Payer Unknown [id number] 2024 Medicare O [id number] 2023 Medicare (Managed Care) 1.2. [id number] 2023 Unknown [id number] 2023 Self-pay 2017 Medicaid [place] [id number] 1966 Unknown [id number] 2.16.840.1.401122.3.579.2. 593 1966 Unknown [id number] 2.16.840.1.817445.3.579.2. 593 1966 Unknown [id number] 2.16.840.1.881999.3.579.2. 593 1966 Unknown [id number] 2.16.840.1.075987.3.579.2. 1286 1966 Unknown [id number] 2.16.840.1.356882.3.579.2. 1286 1966 Unknown [id number] 2.16.840.1.035256.3.579.2. 1259 1966 Unknown [id number] 2.16.840.1.326017.3.579.2. 1259 1966 Unknown [id number] 2.16.840.1.014266.3.579.2. 1259 1966 Unknown [id number] 2.16.840.1.008995.3.579.2. 1259 1966 Unknown [id number] 2.16.840.1.610919.3.579.2. 1258 1966 Unknown [id number] 2.16.840.1.532306.3.579.2. 1258 1966 Unknown [id number] 2.16.840.1.981703.3.579.2. 1258 1966 Unknown [id number] 2.16.840.1.854937.3.579.2. 1258 1966 Unknown [id number] 2.16.840.1.693809.3.579.2. 1258 1966 Unknown [id number] 2.16.840.1.558041.3.579.2. 1258 1966 Unknown [id number] 2.16.840.1.718739.3.579.2. 1258 1966 Unknown [id number] 2.16.840.1.050236.3.579.2. 1258 1966 Unknown [id number] 2.16.840.1.360237.3.579.2. 1258 1966 Unknown [id number] 2.16.840.1.582673.3.579.2. 1285 1966 Unknown [id number] 2.16.840.1.799398.3.579.2. 1285 1966 Unknown [id number] 2.16.840.1.880567.3.579.2. 1285 1966 Unknown [id number] 2.16.840.1.682914.3.579.2. 1285 1966 Unknown [id number] 2.16.840.1.846406.3.579.2. 1285 1966 Unknown [id number] 2.16.840.1.802327.3.579.2. 1285 1966 Unknown [id number] 2.16.840.1.362317.3.579.2. 1286 1966 Unknown [id number] 2.16.840.1.661912.3.579.2. 1286 1966 Unknown [id number] 2.16.840.1.203426.3.579.2. 1286 1966 Unknown [id number] 2.16.840.1.293140.3.579.2. 1286 1966 Unknown [id number] 2.16.840.1.578808.3.579.2. 1286 1966 Unknown [id number] 2.16.840.1.004943.3.579.2. 1286 1958 Medicaid [id number] 1958 Medicare [id number] Unknown [id number] 2.16.840.1.669893.3.579.2. 531 Social History Date Type Detail Facility Unknown if ever smoked [employer] Other Start: 05-11-2024 End: 06-07-2025 Sex Assigned At Self [facility] Start: 12-09-2023 End: 06-07-2025 Tobacco smoking status [facility] Smokes tobacco daily [facility] History of tobacco use Cigarette Smoker [facility] Start: 12-09-2023 End: 06-07-2025 Tobacco use and exposure Smokeless tobacco non-user [facility] Start: 05-11-2024 End: 06-21-2025 Alcoholic beverage intake Lifetime non-drinker (finding) [facility] Start: 05-11-2024 End: 06-07-2025 History of Social function [facility] Start: 12-09-2023 Alcohol Comment Caffeine intak e : chocolate [facility] Start: 1965 Sex assigned at Not on file [facility] Tobacco smoking status LAIS Tobacco smoking consumption unknown [facility] Childcare Unknown [facility] Start: 05-10-2015 Sex Male (finding) [facility] Start: 1965 Sex Assigned At Male F [facility] Functional Status Date Assessment Result Facility 06-21-2025 Patient Health [facility] ionnaire 2 item (PHQ-2) [Reported] [facility] 06-21-2025 PHQ-9 quick depressi on assessment panel [Reported.PHQ] [facility] 06-15-2025 Patient Health [facility] ionnaire 2 item (PHQ-2) [Reported] [facility] 06-15-2025 PHQ-9 quick depressi on assessment panel [Reported.PHQ] [facility] 05-24-2025 Patient Health [facility] ionnaire 2 item (PHQ-2) [Reported] [facility] 05-24-2025 PHQ-9 quick depressi on assessment panel [Reported.PHQ] [facility] 02-28-2025 Patient Health [facility] ionnaire 2 item (PHQ-2) [Reported] [facility] 02-06-2025 Patient Health Quest ionnaire 2 item (PHQ-2) [Reported] [facility] Clinical Notes 08-04-2023 to 06-27-2025 Telephone Encounter - Steffi Israel RN - 06/27/2025 1:36 PM EDTTelephone Encounter - Steffi Israel RN - 06/27/2025 1:36 PM Raj Freedman NP - 06/21/2025 11:30 AM EDT Note Date & Type Note Facility 06-27-2025 Miscellaneous Notes Patient left message requesting Meloxicam refill. Prescription signed 05/23/2025 has 1 refill. Call placed to patient to inform him of this information and to advise him to call his pharmacy. PVU documented in this encounter [facility] 06-27-2025 Telephone encounter Note Patient left message requesting Meloxicam refill. Prescription signed 05/23/2025 has 1 refill. Call placed to patient to inform him of this information and to advise him to call his pharmacy. PVU [facility] 06-26-2025 Telephone encounter Note Request was for Xanax, Alprazolam. Pt does not take this medication. OARRS reviewed. Lorazepam sent. [facility] 06-26-2025 Miscellaneous Notes Request was for Xanax, Alprazolam. Pt does not take this medication. OARRS reviewed. Lorazepam sent. documented in this encounter [facility] 06-23-2025 Miscellaneous Notes Pt calls with c/o pain at injection site and bilateral shoulder blades are sore. Educated pt that injection site pain is to be expected and for pain control he can use OTC treatments such as NSAIDs, tylenol, topical pain relievers such as creams/gels, patches, heat/ice. PVU documented in this encounter [facility] 06-23-2025 Telephone encounter Note Pt calls with c/o pain at injection site and bilateral shoulder blades are sore. Educated pt that injection site pain is to be expected and for pain control he can use OTC treatments such as NSAIDs, tylenol, topical pain relievers such as creams/gels, patches, heat/ice. PVU [facility] 06-21-2025 History of Presen t illness Narrative Images from the original note were not included. Subjective Patient ID: Ole Stephens is a 59 y.o. male who presents for No chief complaint on file.. Ole presents today for issues with fluid around his heart. Pain management will not do anything until they speak with a provider. He see's pain management at [facility] in [place]. Pt needs surgical clearance injection. See echo [...] effusion. Pt does not want to pursue mold builder at this time. WBC 9.0 Hgb 12.8 [...] History: Diagnosis Date Allergies Anxiety Bipolar disorder ([facility]) Chest discomfort Closed head injury 10/2016 Fall Degenerative disease of basal ganglia ([facility]) Diaphoresis Dysfunction of eustachian tube Esophageal reflux Gastritis and gastroduodenitis Hyperlipidemia Hypothyroidism Loss of appetite Seizure ([facility]) Vitamin B 12 deficiency Past Surgical History: [...] follow-ups on file. documented in this encounter [facility] 06-16-2025 Miscellaneous Notes Patient called office today to report that he was seen by cardiology and placed on new medications. He states he had an echo that showed water around my heart . 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 Doxy and topical is for a skin infection on his chin. Patient is scheduled for Bilateral T 3/4 4/5 MBB 06/23/2025. We will need cardio clearance prior to procedure Call placed to patient to obtain the name of patient's mold builder. He states he does not have a mold builder. Patient's PCP, Haley Freedman NP, ordered the echo. Patient's upcoming procedure is without sedation. How would you like to proceed? Patient called office and repeated information noted in previous encounters related to echo results. He states he has to have his injection this week as he is so much pain. Patient is informed that provider will be made aware that he has no mold builder and that his PCP was the ordering [...] letter sent to his PCP, Haley Freedman CATALYST SUPERVISOR. Resent surgical clearance to haley freedman. They [...] try again later. documented in this encounter [facility] 06-16-2025 Telephone encounter Note Patient called office today to report that he was seen by cardiology and placed on new medications. He states he had an echo that showed water around my heart . 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 Doxy and topical is for a skin infection on his chin. Patient is scheduled for Bilateral T 3/4 4/5 MBB 06/23/2025. [facility] 06-16-2025 Telephone encounter Note We will need cardio clearance prior to procedure [facility] 06-16-2025 Telephone encounter Note Call placed to patient to obtain the name of patient's mold builder. He states he does not have a mold builder. Patient's PCP, Haley Freedman NP, ordered the echo. Patient's upcoming procedure is without sedation. How would you like to proceed? [facility] 06-16-2025 Telephone encounter Note Patient called office and repeated information noted in previous encounters related to echo results. He states he has to have his injection this week as he is so much pain. Patient is informed that provider will be made aware that he has no mold builder and that his PCP was the ordering provider. Patient states that if he not able to have his scheduled injection this week he will go to the ED. He then ended the call. [facility] 06-16-2025 Telephone encounter Note Patient called [...] a little water around my heart . [facility] 06-16-2025 Telephone encounter Note If PCP will clear him that is sufficient [facility] 06-16-2025 Telephone encounter Note Clearance letter sent to his PCP, Haley Freedman CATALYST SUPERVISOR. [facility] 06-16-2025 Telephone encounter Note Resent surgical clearance to haley freedman. They did not send it back. They sent a referral, documentation stating pt requested referral [facility] 06-16-2025 Telephone encounter Note Pt states his [...] for Bilateral T 3/4, 4/5 MBB, local. [facility] 06-16-2025 Telephone encounter Note Clearance received from PCP. Called pt to inform him and that he can proceed with procedure. No answer. Will try again later. [facility] 06-15-2025 History of Presen t illness [...] General Surgery; Future Await EGD Pericardial effusion ([facility]) - predniSONE (Deltasone) 10 MG tablet; Take [...] follow-ups on file. documented in this encounter [facility] 06-08-2025 Telephone encounter Note OARRS reviewed, Rx sent into patient's pharmacy. [facility] 06-08-2025 Miscellaneous Notes OARRS reviewed, Rx sent into patient's pharmacy. Ole stopped in asking for a refill on LORazepam (Ativan) 1 MG to [facility] in [place] documented in this encounter [facility] 06-08-2025 Telephone encounter Note Ole stopped in asking for a refill on LORazepam (Ativan) 1 MG to [facility] [place] [facility] 06-07-2025 History of Presen t illness Narrative [facility] [address] [place] [address] Patient: Ole Stephens Sex: male : 1965 [...] Anxiety disorder, unspecified 12/09/2009 Bipolar 2 disorder ([facility]) 12/06/20092002 Chronic bilateral thoracic back pain Chronic idiopathic constipation 12/09/2023 Chronic pain disorder Depressive disorder 12/09/2009 Drug abuse ([facility]) 12/06/2009 denies since 2005 Esophageal reflux 07/01/2023 ETOH abuse 12/06/2009 denies since 2005 External hemorrhoid, bleeding 12/09/2023 History of drug abuse in remission ([facility]) 12/09/2023 Hypothyroidism 07/01/2023 Joint pain Loss of appetite 07/01/2023 Low back pain Mixed hyperlipidemia 07/01/2023 Murmur Muscle spasm Orthostatic hypotension 12/15/2009 Palpitations 12/09/2009 Seizure ([facility]) 07/01/2023 Vitamin B12 deficiency 07/01/2023 Past Surgical History: Procedure Laterality Date INJECTION BLOCK NERVE MEDIAL BRANCH Bilat T 3/4, 4/5 Bilateral 05/19/2025 Performed by Kota Petty MD at [facility] Allergies Allergen Reactions Penicillins Swelling localized [...] PA-C 06/07/25 1329 documented in this encounter [facility] [employer] [facility] 06-07-2025 Instructions Rufina Banks CNA - 06/07/2025 [...] nearest emergency room. documented in this encounter [facility] 05-24-2025 History of Presen t illness Narrative [...] follow-ups on file. documented in this encounter [facility] 05-22-2025 Miscellaneous Notes Patient had a bilateral T3/4, 4/5 on 05/19/25, he only received 100% relief x 30 minutes. 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 Advised patient, will send note to provider, but to follow up as scheduled and reminded him to bring his pain diary. PVU 13:00 Patient called office to request refill for Meloxicam and Gabapentin. He was informed that both medications had already been sent to [facility]. He is able to pick them [...] to sleep documented in this encounter [facility] 05-22-2025 Telephone encounter Note Patient had a bilateral T3/4, 4/5 on 05/19/25, he only received 100% relief x 30 minutes. 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 Advised patient, will send note to provider, but to follow up as scheduled and reminded him to bring his pain diary. PVU [facility] 05-22-2025 Telephone encounter Note 13:00 Patient [...] has not tried any other muscle relaxer. [facility] 05-22-2025 Telephone encounter Note Pt called in and left a voicemail requesting a different muscle relaxer. He stated that the muscle relaxer he is taking now does nothing but put him to sleep [facility] 05-22-2025 Miscellaneous Notes Last OV: 04/26/2025 Next OV: 06/07/2025 OARRS appropriate: Yes Last UDS: NA Pharmacy: [facility] Gabapentin was new on 04/26/25, patient requested refill of the Gabapentin and Mobic. documented in this encounter [facility] 05-22-2025 Telephone encounter Note Last OV: 04/26/2025 Next OV: 06/07/2025 OARRS appropriate: Yes Last UDS: NA [facility]acy: [facility] Gabapentin was new on 04/26/25, patient requested refill of the Gabapentin and Mobic. [facility] 05-22-2025 Telephone encounter Note resent [facility] 05-22-2025 Miscellaneous Notes resent Ole called and stated his meds got sent to [facility] but he goes to [facility] [place]. He asked that you resend it to [facility]. documented in this encounter [facility] 05-22-2025 Telephone encounter Note Ole called and stated his meds got sent to [facility] but he goes to [facility] [place]. He [facility] that [facility] 05-22-2025 Telephone encounter Note OARRS reviewed, Rx sent into patient's pharmacy. [facility] 05-22-2025 Miscellaneous Notes OARRS reviewed, Rx sent into patient's pharmacy. LORazepam (Ativan) 1 MG tablet And tramadol sent to [facility] [place] Per Leatha Arzate: I spoke with the [...] a lot of pain, call back number [phone]. Per Leatha Arzate: I'm not sure if he has a contract with pain mgt in regard to pain med. 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 I was reading his history in [employer] and he has a hx of drug abuse. I do not feel comfortable prescribing opioid medication Pt notified, states he will go to the ER Pt is calling because he just had injections with pain management in his back and he states he is in pain. He wants to know if he can get lorazepam and tramadol sent to [facility] in [place]. States he is in severe pain and it is causing him anxiety. Call back number is [phone] documented in this encounter [facility] 05-22-2025 Telephone encounter Note LORazepam (Ativan) 1 MG tablet [facility] [place] [facility] 05-20-2025 Telephone encounter Note Per Leatha Arzate: [...] and she said they can't be filled. [facility] 05-20-2025 Telephone encounter Note Pt called back and asked that the provider call him directly, he is very upset and in a lot of pain, call back number [phone]. [facility] 05-20-2025 Telephone encounter Note Per Leatha Arzate: I'm not sure if he has a contract with pain mgt in regard to pain med. 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 I was reading his history in [employer] and he has a hx of drug abuse. I do not feel comfortable prescribing opioid medication Pt notified, states he will go to the ER [facility] 05-20-2025 Telephone encounter Note Pt is calling because he just had injections with pain management in his back and he states he is in pain. He wants to know if he can get lorazepam and tramadol sent to [facility] in [place]. States he is in severe pain and it is causing him anxiety. Call back number is [phone] [facility] 05-17-2025 Evaluation note Diagnosis Onset Date Resolution Impetigo acute May 17, 2 025 9:43am [facility] Work Phone: 1(506) 974-138608-13-2025 Evaluation note* Diagnosis Onset Date Resolution Status Admit Date Impetigo acute May 17, 2 025 9:43am Puncture wound of left hand noneactive June 06 025 9:02am [facility] Work Phone: 1(869) 877-812708-13-2025 Evaluation note* Diagnosis Onset Date Resolution Status Admit Date Impetigo acute May 17, 2 025 9:43am Puncture wound of left hand noneacti ve June 06, 2025 9:02am Folliculitis acute June 10:03am Skin infection acute June 13, 2025 10:03am [facility] Work Phone: 1(822) 233-906207-23-2025 History of Present illness Narrative* Gabi Omalley PA-C - 04/26/2025 8:45 AM EDT [facility] [address] [place] [address] Patient: Ole Stephens Sex: male : 1965 Age: 59 y.o. PCP: CARLOS ENRIQUE MAGUIRE MD 04/26/2025 Ole Stephens is here for a(n) follow up appointment after starting Mobic 15mg daily whichis providing some relief for his upper back pain. Patient also started Physical Therapy in [place] which provides only very temporary relief before [...] Anxiety disorder, unspecified 12/09/2009 Bipolar 2 disorder ([facility]) 12/06/20092002 Chronic bilateral thoracic back pain Chronic idiopathic constipation 12/09/2023 Depressive disorder 12/09/2009 Drug abuse ([facility]) 12/06/2009 denies since 2005 Esophageal reflux 07/01/2023 ETOH abuse 12/06/2009 denies since 2005 External hemorrhoid, bleeding 12/09/2023 History of drug abuse in remission ([facility]) 12/09/2023 Hypothyroidism 07/01/2023 Loss of appetite 07/01/2023 Mixed hyperlipidemia 07/01/2023 Murmur Muscle spasm Orthostatic hypotension 12/15/2009 Palpitations 12/09/2009 Seizure ([facility]) 07/01/2023 Vitamin B12 deficiency 07/01/2023 History reviewed. [...] decrease procedural anxiety. OARRS: Reviewed. Scribe Statement: Rufina Wilson CNA, scribed for and in the presence of GABI OMALLEY PA-C who performed the above service. Rufina Banks CNA 04/26/25 0913 Gabi Omalley PA-C 04/26/25 0922 [facility] Instructions* Patient Instructions* Rufina Banks CNA [...] the nearest emergency room. [facility] Telephone encounter Note* Telephone Encounter - SHENG Carrasco - 04/24/2025 1:44 PM EDT OARRS reviewed, Rx sent into patient's pharmacy. [id number] Miscellaneous Notes* Telephone Encounter - SHENG Carrasco - 04/24/2025 1:44 PM EDT OARRS reviewed, Rx sent into patient's pharmacy. * Telephone Encounter - Jesusita Beck LPN - 04/24/2025 11:25 AM EDT I completed the prior auth on [employer] and it came back that Prior auth not required . Spoke to pt and he is just asking for a refill. * Telephone Encounter - Yuly Chan - 04/24/2025 10:08 AM EDT Ole left a message stating he needed a prior auth done on his Tramadol so he can fill it. documented in this encounterC[facility] [id number] Telephone encounter Note* Telephone Encounter - Jesusita Beck LPN - 04/24/2025 11:25 AM EDT I completed the prior auth on [employer] and it came back that Prior auth not required . Spoke to pt and he is just asking for a refill. [id number] Telephone encounter Note* Telephone Encounter - Yuly Chan - 04/24/2025 10:08 AM EDT Ole left a message stating he needed a prior auth done on his Tramadol so he can fill it. [id number] Miscellaneous Notes* Telephone Encounter - SHENG Carrasco [...] a new prescription to be sent to [facility] in [place]. * Telephone Encounter - Abi Diego - 04/17/2025 4:22 PM EDT LORazepam (Ativan) 1 MG tablet [facility] documented in this encounterC[facility] [id number] Telephone encounter Note* Telephone Encounter - SHENG Crarasco - 04/18/2025 9:59 AM EDT Spoke with [...] due to our office increasing the dosage. [id number] Telephone encounter Note* Telephone Encounter - Yuly Chan - 04/18/2025 9:14 AM EDT Ole left a message stating hisLORazepam (Ativan) 1 MG could not be filled and the pharmacy stated it was waiting approval from the physician. He is asking for a new prescription to be sent to [facility] in [place]. [id number] Telephone encounter Note* Telephone Encounter - Edith Contreras - 04/17/2025 5:06 PM EDT Pt called and he need refill of ativan [place] [id number] Miscellaneous Notes* Telephone Encounter - Edith Contreras - 04/17/2025 5:06 PM EDT Pt called and he need refill of ativan documented in this encounterCox [id number] Telephone encounter Note* Telephone Encounter - Abi Diego - 04/17/2025 4:22 PM EDT LORazepam (Ativan) 1 MG tablet [facility]gizchtnpq01-83-1053 Telephone encounter Note* Telephone Encounter - SHENG Carrasco - 04/10/2025 8:30 AM EDT OARRS reviewed, Rx sent into patient's pharmacy. [id number] Miscellaneous Notes* Telephone Encounter - SHENG Carrasco - 04/10/2025 8:30 AM EDT OARRS reviewed, Rx sent into patient's pharmacy. documented in this [facility]06-11-2025 Telephone encounter Note* Telephone Encounter - SHENG Carrasco - 03/15/2025 3:12 PM EDT Spoke with patient. He would like imaging specifically of his ribs to make sure he did not break a rib. Rib series with chest PA x-ray order sent to [facility]. [id number] Miscellaneous Notes* Telephone Encounter - SHENG Carrasco - 03/15/2025 3:12 PM EDT Spoke with patient. He would like imaging specifically of his ribs to make sure he did not break a rib. Rib series with chest PA x-ray order sent to [facility] Imaging. * Telephone Encounter - Abi [...] view of his ribs. documented in this [facility]06-11-2025 Telephone encounter Note* Telephone Encounter - Abi [...] order for another view of his ribs. [facility] [id number] History of Present illness Narrative* Gabi Omalley PA-C - 03/15/2025 12:00 PM EDT [facility] [address] [place] [address] Patient: Ole Stephens Sex: male : 1965 [...] Anxiety disorder, unspecified 12/09/2009 Bipolar 2 disorder ([facility]) 12/06/20092002 Chronic bilateral thoracic back pain Chronic idiopathic constipation 12/09/2023 Depressive disorder 12/09/2009 Drug abuse ([facility]) 12/06/2009 denies since 2005 Esophageal reflux 07/01/2023 ETOH abuse 12/06/2009 denies since 2005 External hemorrhoid, bleeding 12/09/2023 History of drug abuse in remission ([facility]) 12/09/2023 Hypothyroidism 07/01/2023 Loss of appetite 07/01/2023 Mixed hyperlipidemia 07/01/2023 Muscle spasm Orthostatic hypotension 12/15/2009 Palpitations 12/09/2009 Seizure ([facility]) 07/01/2023 Vitamin B12 deficiency 07/01/2023 History reviewed. [...] explain the condition. OARRS: Reviewed. Scribe Statement: I, Rufina Banks CNA, scribed for and in the presence of AGBI OMALLEY PA-C who performed the above service. Rufina Banks CNA 03/15/25 1245 Rufina Banks CNA 03/15/25 1344 Gabi Omalley PA-C 03/15/25 1359 [facility]06-[facility] Telephone encounter Note* Telephone Encounter - MORRIS VEGA - 03/14/2025 2:13 PM EDT Spoke with patient and he would like an x-ray done of his ribs due to back pain. He states his ribshurt all over when he coughs. He is to have back surgery and also see pain management on 03-15-25. Please avise [id number] Miscellaneous Notes* Telephone Encounter - MORRIS VEGA [...] they are very painful. documented in this encounterCox [id number] Telephone encounter Note* Telephone Encounter - Abi Diego - 03/14/2025 11:04 AM EDT Patient wants to know if he can get an xray on his ribs he said that they are very painful. [id number] Telephone encounter Note* Telephone Encounter - Haley Freedman NP - 02/28/2025 12:06 PM EDT Pt needs his Tramadol and Ativan sent in. Both of these are an increase since last visit. I referred him to pain management for his back pain Ativan 1mg TID prn Tramadol 100mg every 6 hours as needed [id number] Miscellaneous Notes* Telephone Encounter - Haley Freedman NP - 02/28/2025 12:06 PM EDT Pt needs his Tramadol and Ativan sent in. Both of these are an increase since last visit. I referred him to pain management for his back pain Ativan 1mg TID prn Tramadol 100mg every 6 hours as needed documented in this encounterCox [id number] History of Present illness Narrative* Haley Freedman [...] Yes Cognitive Screening Three Word Registration: Banana, [place], Chair Clock Drawing: Inability or Refusal to Draw Clock - 0 Three Word Recall: All 3 words correct - 3 Total Score (0-5 Points): 3 Pain Assessment Pain Score: 8 Advance Care Planning Do you have a living will?: Yes Do you have a medical power of wastewater project manager?: Yes Objective : BP 112/76 Pulse 54 [...] Visits Requested: 1 1. Reactive depression (situational) (CMS/[facility]) Medication as directed. Verbalizes understanding of the [...] depression. 18. Routine general medical examination at [facility] facility Reviewed all relevant preventative screenings with [...] on February 28, 2025 documented in this encounterCox [id number] History of Present illness Narrative* SHENG Carrasco [...] will relieve the pain some. Rates pain 04/13. He has been taking a muscle relaxer, [...] for Appointment As Scheduled. documented in this encounterCox [id number] Telephone encounter Note* Telephone Encounter - Abi Diego - 01/26/2025 11:18 AM EDT traMADol (Ultram) 50 [id number] Miscellaneous Notes* Telephone Encounter - Abi Diego - 01/26/2025 11:18 AM EDT traMADol (Ultram) 50 MG tablet [facility] documented in this encounterCox [id number] History of Present illness Narrative* MORRIS VEGA [...] understanding of treatment plan. documented in this encounterCox [id number] History of Present illness Narrative* Michael Kong [...] Refill: 2 3. Mixed hyperlipidemia (CMS/HCC) Stable. 3/6/24 CHOLESTEROL, TOTAL <200 mg/dL 263 High HDL [...] No follow-ups on file. documented in this encounterCox [id number] Instructions* Patient Instructions* Michael Kong NP - 11/09/2024 2:00 PM EST Refills sent today. documented in this [facility]01-10-2025 Telephone encounter Note* Telephone Encounter - Michael Kong NP - 10/14/2024 11:35 AM EST Please call the pt and notify that orthopedics recommended pain management. If he is ok with going to pain management please send the referral. [id number] Miscellaneous Notes* Telephone Encounter - Michael Kong NP - 10/14/2024 11:35 AM EST Please call the pt and notify that orthopedics recommended pain management. If he is ok with going to pain management please send the referral. * Telephone Encounter - Marsha Schofield MA - 10/03/2024 9:27 AM EST Ortho office states they are denying the referral please refer to [facility] per ortho documented in this [facility]12-30-2024 Telephone encounter Note* Telephone Encounter - Marsha Schofield MA - 10/03/2024 9:27 AM EST Ortho office states they are denying the referral please refer to [facility] per ortho [id number] History of Present illness Narrative* Michael Kong [...] day pt is having microwave dinners like [place]ark stated No problems with going to the [...] History: Diagnosis Date Allergies Anxiety Bipolar disorder ([facility]) Chest discomfort Closed head injury 10/2016 Fall [...] No follow-ups on file. documented in this [facility]12-26-2024 Instructions* Patient Instructions* Michael Kong NP - 09/29/2024 1:00 PM EST Norflex continues. Voltaren continues. Wellbutrin xl is started. Alprazolam is started x 10 days only. documented in this [facility]10-31-2023 Evaluation note* Encounter Date Diagnosis Assessment Notes [...] area. Pt understood agreed to treatment plan. Citizen[facility]VC Other Evaluation note* Diagnosis Hospital discharge follow-up- [...] in partial remission, most recent episode depressed ([facility]/HCC) Other psychoactive substance abuse, in remission ([facility]/HCC) Bipolar disorder, unspecified ([facility]/HCC) Bipolar disorder, unspecified Bipolar disorder, in partial remission, most recent episode mixed ([facility]/HCC) documented in this encounter [facility]* [...] partial remission, most recent episode mixed (CMS/HCC) History of drug abuse in remission History of ETOH abuse Persistent depressive disorder (CMS/HCC) Routine general medical examination at health care [...] [facility] assessment information available [facility] Work Phone: Evaluation note* Diagnosis Anxiety Anxiety state, unspecified Severe back pain documented in this encounter [facility]* Diagnosis Severe back pain Anxiety Anxiety state, unspecified documented in this encounter [facility]* Diagnosis Thoracic spondylosis without myelopathy Lumbar spondylosis Lumbosacral spondylosis without myelopathy documented [facility] this [facility]* Diagnosis SOB (shortness of [...] this encounter [facility]* Diagnosis Anxiety Anxiety state, unspecified documented in this encounter [facility]* Diagnosis Weight loss- Primary Loss [...] Unspecified pre-operative examination documented in this encounter [facility]* Diagnosis Situational mixed anxiety and depressive disorder Anxiety Anxiety state, unspecified documented in this encounter [facility] HealthcareInstructionsNot on filedocumented in this encounterProMedica Health SystemInstructionsNot on filedocumented in this encounterProMedica Health SystemInstructionsNot on filedocumented in this encounterProMedica Health SystemInstructionsNot on filedocumented in this encounterProMedica Health System InstructionsNot on filedocumented in this encounterProMedica Health SystemReason for referral (narrative)No reason for referral information availableCorey Hospital Work Phone: Summary Purpose Family History No Family History Records FoundNo Family History Records FoundNo Family History Records FoundNo Family History Records FoundNo Family History Records FoundNo Family History Records Found Advance Directives No Advanced Directives Records Found Advance Directive Response Recorded Date/ Time Advance [...] Puncture wound of left hand June 9:02am Chief Complaint Admit Date Rash on Chin May 17, 2025 9: 43am wants tetanus, puncture on hand Septembe r 2024 9:02am infection on chin June 13, 2025 10:03am Sore on chin possible infected acne Sept ember 2024 11:05am Reason for Visit Admit Date Impetigo May 17, 2025 9: 43am Puncture wound of left hand June 9:02am Folliculitis June 13, 2025 10:03am Skin infection June 13, 2025 10:03am Additional Source Comments (unrecognized sect ion and content) No Status Records FoundNo Status Records FoundNo Status Records FoundNo Status Records FoundNo Status Records FoundNo Status Records Found INFORMATION SOURCE (unrecogn ized section and content) DATE CREATED AUTHOR 12/07/2019 [facility] DATE CREATED AUTHOR AUTHOR'S ORGANIZ ATION 01/13/2025 [facility] DATE CREATED AUTHOR AUTHOR'S ORGANIZ ATION 03/04/2025 [facility] DATE CREATED AUTHOR AUTHOR'S ORGANIZ ATION 05/27/2025 [facility] DATE CREATED AUTHOR AUTHOR'S ORGANIZ ATION 06/22/2025 [facility] DATE CREATED AUTHOR AUTHOR'S ORGANIZ ATION 07/08/2025 [facility] REASON FOR VISIT (unrecogniz ed section and [...] Reason Onset Date Comments Med Refill 05/22/2025 Reason Onset Date Comments Med Refill 06/26/2025 Care Teams (unrecognized sec tion and content) Regional Sales Associate Relationship Specialty Start Date End Date Carlos Enrique Maguire MD [address] [facility] [address] [place] [address] PCP - ACO Reach 02/26/23 Carlos Enrique Maguire MD [address] [place] [address] PCP - General Internal Medicine 02/10/23 Regional Sales Associate Relationship Specialty Start Date End Date Carlos Enrique Maguire MD [address] [place] [address] PCP - ACO Reach 02/26/23 Carlos Enrique Maguire MD [address] [place] [address] PCP - General Internal Medicine 02/10/23 Regional Sales Associate Relationship Specialty Start Date End Date Carlos Enrique Maguire MD [address] [place] [address] PCP - ACO Reach 02/26/23 Carlos Enrique Maguire MD [address] [place] [address] PCP - General Internal Medicine 02/10/23 Regional Sales Associate Relationship Specialty Start Date End Date Carlos Enrique Maguire MD [address] [place] [address] PCP - ACO Reach 02/26/23 Carlos Enrique Maguire MD [address] [place] [address] PCP - General Internal Medicine 02/10/23 Regional Sales Associate Relationship Specialty Start Date End Date Carlos Enrique Maguire MD [address] [place] [address] PCP - ACO Reach 02/26/23 Carlos Enrique Maguire MD [address] [place] [address] PCP - General Internal Medicine 02/10/23 Regional Sales Associate Relationship Specialty Start Date End Date Carlos Enrique Maguire MD [address] [place] [address] PCP - General Internal Medicine 02/10/23 Carlos Enrique Maguire MD [address] [place] [address] PCP - ACO Reach 11/18/24 Regional Sales Associate Relationship Specialty Start Date End Date Carlos Enrique Maguire MD [address] [place] [address] PCP - General Internal Medicine 02/10/23 Carlos Enrique Maguire MD [address] [place] [address] PCP - ACO Reach 11/18/24 Regional Sales Associate Relationship Specialty Start Date End Date Carlos Enrique Maguire MD [address] [place] [address] PCP - General Internal Medicine 02/10/23 Regional Sales Associate Relationship Specialty Start Date End Date Carlos Enrique Maguire MD [address] [place] [address] PCP - General Internal Medicine 02/10/23 Regional Sales Associate Relationship Specialty Start Date End Date Carlos Enrique Maguire MD [address] [place] [address] PCP - General Internal Medicine 02/10/23 Regional Sales Associate Relationship Specialty Start Date End Date Carlos Enrique Maguire MD [address] [place] [address] PCP - General Internal Medicine 02/10/23 Regional Sales Associate Relationship Specialty Start Date End Date Carlos Enrique Maguire MD [address] [place] [address] PCP - General Internal Medicine 02/10/23 Regional Sales Associate Relationship Specialty Start Date End Date Carlos Enrique Maguire MD [address] [place] [address] PCP - General Internal Medicine 02/10/23 Regional Sales Associate Relationship Specialty Start Date End Date Carlos Enrique Maguire MD [address] [place] [address] PCP - General Internal Medicine 02/10/23 Regional Sales Associate Relationship Specialty Start Date End Date Carlos Enrique Maguire MD [address] [place] [address] PCP - General Internal Medicine 02/10/23 Regional Sales Associate Relationship Specialty Start Date End Date Carlos Enrique Maguire MD [address] [place] [address] PCP - General Internal Medicine 03/15/25 Regional Sales Associate Relationship Specialty Start Date End Date Carlos Enrique Maguire MD [address] [place] [address] PCP - General Internal Medicine 02/10/23 Regional Sales Associate Relationship Specialty Start Date End Date Carlos Enrique Maguire MD [address] [place] [address] PCP - General Internal Medicine 03/15/25 Team Status: Active Member Role Status Dates Carlos Enrique Maguire II MD Primary Care Provider Active Team Status: Inactive Member Role Status Dates Carlos Enrique Maguire II MD Primary Care Provider Active Start: May 17, 2025 End: May 17, 2025 ALBERT Galindo RN [employer] SUPERVISOR-C Attending Provider Active Start: May 17, 2025 End: May 17, 2025 Regional Sales Associate Relationship Specialty Start Date End Date Carlos Enrique Maguire MD [address] [place] [address] PCP - General Internal Medicine 02/10/23 Regional Sales Associate Relationship Specialty Start Date End Date Carlos Enrique Maguire MD [address] [place] [address] PCP - General Internal Medicine 02/10/23 Regional Sales Associate Relationship Specialty Start Date End Date Carlos Enrique Maguire MD [address] [place] [address] PCP - General Internal Medicine 03/15/25 Regional Sales Associate Relationship Specialty Start Date End Date Carlos Enrique Maguire MD [address] [place] [address] PCP - General Internal Medicine 03/15/25 Regional Sales Associate Relationship Specialty Start Date End Date Carlos Enrique Maguire MD [address] [place] [address] PCP - General Internal Medicine 02/10/23 Regional Sales Associate Relationship Specialty Start Date End Date Carlos Enrique Maguire MD [address] [place] [address] PCP - General Internal Medicine 02/10/23 Team Status: Inactive Member Role Status Dates Carlos Enrique Maguire II MD Primary Care Provider Active Start: June 06, 2025 End: June 06, 2025 Jaqui Zeng APRN Attending Provider Active Start: June 06, 2025 End: June 06, 2025 Regional Sales Associate Relationship Specialty Start Date End Date Carlos Enrique Maguire MD [address] [place] [address] PCP - General Internal Medicine 02/10/23 Team Status: Inactive Member Role Status Dates Carlos Enrique Maguire II MD Primary Care Provider Active Start: June 13, 2025 End: June 13, 2025 Anny Bhatti APRN Attending Provider Active S tart: June 13, 2025 End: June 13, 2025 Regional Sales Associate Relationship Specialty Start Date End Date Carlos Enrique Maguire MD [address] [facility] [address] [place] [address] PCP - General Internal Medicine 02/10/23 Regional Sales Associate Relationship Specialty Start Date End Date Carlos Enrique Maguire MD [address] [facility] [address] [place] [address] PCP - General Internal Medicine 02/10/23 Regional Sales Associate Relationship Specialty Start Date End Date Carlos Enrique Maguire MD [address] [place] [address] PCP - General Internal Medicine 03/15/25 Regional Sales Associate Relationship Specialty Start Date End Date Carlos Enrique Maguire MD [address] [place] [address] PCP - General Internal Medicine 06/26/25 Regional Sales Associate Relationship Specialty Start Date End Date Carlos Enrique Maguire MD [address] [place] [address] PCP - General Internal Medicine 03/15/25 Team Status: Inactive Member Role Status Dates Carlos Enrique Maguire II MD Primary Care Provider Active Start: June 30, 2025 End: June 30, 2025 Tonya Hare , JORGE Attending Provider Active Start: June 30, 2025 End: June 30, 2025 Regional Sales Associate Relationship Specialty Start Date End Date Carlos Enrique Maguire MD [address] [facility] [address] [place] [address] PCP - General Internal Medicine 03/15/25 Goals [...] BE BASED ON THE PRIMARY CLINICAL RECORDS. [employer] provides no warranty or guarantee of the accuracy or completeness of information in this document.
== END 2025-07-09 17:55 | disposition left against medical advice (07) ==
PROVIDERS: Emergency Provider Emergency Medicine; PCP Family Medicine
DX: Z53.21 Procedure and treatment not carried out due to patient leaving prior to being seen by health care provider (principal)

== ENCOUNTER 2025-07-28 16:32 | Emergency (ER) | payer MEDICARE, MEDICAID, SELFPAY ==
--- OUTSIDE RECORDS SUMMARY | 2025-07-17 23:59 | XMS_ITS | Encounter Summary ---
Author Organization [facility] [employer] [facility] tem Address [id number] [address] [place] [address] Care Team Providers Care Branch Specialist Name Role Phone Alexander Lassiter MD Primary Care Provider [phone] Encounter Details DateTypeDepartmentCare Team (Latest Contact Info)Wtmejerqkiz22/16/2025 11:59 PM EDTAnesthesia Event [facility] [address] [place] [address] Costa Brooke, DO [address] [place] [address] Anesthesia Record Procedure NameResponsible AnesthesiologistAnesthesia Start TimeAnesthesia Stop TimeESOPHAGOGASTRODUODENOSCOPY DIAGNOSTICEvents No events on file. * Meds No medications on file. * Agents No agents on file. * Blood No blood administrations on file. Lines, Drains, and Airways No LDAs on file. documented in this encounter Social History Tobacco UseTypesPacks/DayYears UsedDateSmoking Tobacco: Every DayCigarettes Smokeless Tobacco: NeverAlcohol UseStandard Drinks/WeekCommentsNot Currently0 (1 standard drink = 0.6 oz pure alcohol)soberChildcareAnswerDate RecordedChildcare Djmfnjo0303/16/2019EmploymentAnswerDate NsivoevtRupcqjsvsiQrosvxo41/12/2019Hunger ScreeningAnswerDate RecordedWithin the past 12 months we worried whether our food would run out before we got money to buy more.Never True07/19/2025Within the past 12 months the food we bought just didn't last and we didn't have money to get more.Never True07/19/2025Sex and Gender InformationValueDate RecordedSex Assigned at BirthNot on fileLegal RfpMpyq1805/10/2015 11:28 AM EDTGender Identity Not on fileSexual OrientationNot on filedocumented as of this encounter OR Notes * Anesthesia Preprocedure Evaluation - Costa Brooke DO - 07/17/2025 7:36 AM EDT ANESTHESIA PRE-PROCEDURE EVALUATION [facility] Procedure(s): ESOPHAGOGASTRODUODENOSCOPY DIAGNOSTIC COLONOSCOPY DIAGNOSTIC / SCREENING Anesthesia Evaluation ANESTHESIA PLAN ASA 3 Anesthesia Type: MAC Induction: Intravenous Anesthetic risks, plan and alternatives discussed with Patient. Plan discussed with FINISHED CIGAR MAKER. Airway Management: Nasal Cannula Transfer to Phase II PONV: Low Risk Total Score: 0 Criteria that do not apply: Female patient Non-smoker History of PONV and/or Motion Sickness Intended opioid administration RCRI: Low Risk: Score of 0 = 3.9% (2.8-5.4%) Risk of major cardiac event Score of 1 = 6.0% (4.9-7.4%) Risk of major cardiac event Total Score: 0 Criteria that do not apply: Cerebrovascular Disease Ischemic Heart Disease Congestive Heart Failure Elevated Risk Surgery Pre-operative Treatment with Insulin Pre-operative Creatinine >2 mg/dL / 176.8 mol/L Patient Active Problem List Diagnosis Anxiety disorder, unspecified Bipolar 2 disorder ([facility]) Chronic idiopathic constipation Depressive disorder Drug abuse ([facility]) Esophageal reflux ETOH abuse External hemorrhoid, bleeding History of drug abuse in remission ([facility]) Hypothyroidism Loss of appetite Mixed hyperlipidemia Orthostatic hypotension Palpitations Seizure ([facility]) Vitamin B12 deficiency Thoracic spondylosis without myelopathy documented in this encounter Plan of Treatment DateTypeDepartmentCare Team (Latest Contact Info)Kctxicuorci18/06/2025 7:15 AM ESTAppointment [facility] [address] [place] [phone] Jackelin Omalley, PAPatrice [address] [place] [address] 08/22/2025 8:00 AM ESTOffice Visit [facility] [address] [place] [place] [phone] Zarina Holt APRN-SAFETY MANAGER [address] [facility] [facility] [address] documented as of this encounter Goals GoalPatient Goal TypeAssociated ProblemsRecent ProgressPatient-Stated?Author Autogenerated Goal Care PlanAutogenerated ProblemNoPotts, Elizabethdocumented as of this encounter Visit Diagnoses Not on filedocumented in this encounter Additional Health Concerns Active ProblemsNoted DateDiagnosed DateAutogenerated Xzribzp7707/11/2025documented as of this encounter Care Teams Team MemberRelationshipSpecialtyStart DateEnd Date Alexander Lassiter MD [address] [place] [address] PCP - GeneralFamily Qjsnmgcl25/5/2510documented as of this encounter
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
--- OUTSIDE RECORDS SUMMARY | 2025-07-20 06:00 | XMS_ITS ---
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 * Medical History: Objective: * Vitals: Assessment: Plan: * Treatment: * Billing Information: * Visit Code: * Procedure Codes: * Electronic signature of MACHELLE Vincent on 07/28/2025 at 05:01 PM EDT Sign off status: Pending * Provider: Yesica Vargas APRN, FNP-C Date: 1 Generated for Printing/Faxing/eTransmitting on:?07/28/2025 05:01 PM EDT
--- OUTSIDE RECORDS SUMMARY | 2025-07-24 04:30 | XMS_ITS ---
Author Organization [facility] vices Address [address] [place] [id number] Care Team Providers Care Cigar Packing Examiner Name Role Phone Azucena Vargas Primary Care Provider [phone] Alexander Quan [phone] REASON FOR VISIT DEPUTY K 9 Wellness Encounters Encounter Location Date Provider Diagnosis Main [address] [place] [id number] 07/24/2025 Alexander Cook Plan Of Treatment No Information Progress Notes * Ole STEPHENSDOB:[birth year] (59 yo M)Acc No.[id number]:07/24/2025 Patient:?Ole STEPHENS :?Alexander BlockdDOB:1965???Age:59 Y???Sex:Male Date:07/24/2025Phone:[phone]:[address], [place], [place]: Azucena Vargas Subjective: * Chief Complaints: * 1 . DEPUTY K 9 Wellness. * Medical History: Objective: * Vitals: Assessment: Plan: * Treatment: * Billing Information: * Visit Code: * Procedure Codes: * Electronic signature of SHENG Jacob on 07/28/2025 at 05:01 PM EDTSign off status: Pending * Provider: Chip Cook Date: Generated for Printing/Faxing/eTransmitting on:?07/28/2025 05:01 PM EDT
--- OUTSIDE RECORDS SUMMARY | 2025-07-26 08:20 | XMS_ITS | Encounter Summary ---
Author Organization [facility] Address [address] [place] [address] Care Team Providers Care Supervisor By[employer] Name Role Phone Dg Galo DO Primary Care Provider + [phone] Reason for Referral * Consultation (Routine) - AuthorizedSpecialtyDiagnoses / ProceduresReferred By ContactReferred To ContactGeneral Surgery Diagnoses Screening for colon cancer Unintentional weight loss Procedures ND OFFICE/OUTPATIENT NEW HIGH MDM 60 MINUTES Dg Galo DO [address] [facility] [address] [place] [address] Phone: tel: fax: Jarod Wall DO [facility] [facility] [address] [place] [address] Phone: tel: fax: Referral IDStatusReasonStart DateExpiration DateVisits RequestedVisits [id number] Specialty Services Required / * Imaging (Routine) - Pending ReviewSpecialtyDiagnoses / ProceduresReferred By ContactReferred To ContactRadiology Diagnoses Smoker Unintentional weight loss Procedures CT chest w IV contrast Dg Galo DO [address] [facility] [address] [place] [address] Phone: tel: fax: [facility] [address] [facility] [address] [place] [address] Phone: tel: fax: Referral IDStatusNanette DateExpiration DateVisits RequestedVisits [id number] Iacaux30/ * Imaging (Routine) - Pending ReviewSpecialtyDiagnoses / ProceduresReferred By ContactReferred To ContactRadiology Diagnoses Gastroesophageal reflux disease with esophagitis without hemorrhage Gastric pain Nausea and vomiting, unspecified vomiting type Unintentional weight loss Procedures CT abdomen pelvis w IV contrast Dg Galo DO [address] [place] [address] Phone: tel: fax: [facility] [address] [place] [address] Phone: tel: fax: Referral IDStatusNanette DateExpiration DateVisits RequestedVisits [id number]/ Reason for Visit * ReasonCommentsEstablish Care Encounter Details DateTypeDepartmentCare Team (Latest Contact Info)Ujyuincuesg49/22/2025 8:20 AM EDTOffice Visit [facility] [address] [place] [phone] Dg Galo DO [address] [place] [address] Wellness examination (Primary Dx); Screening for colon cancer; Severe back pain; Anxiety; Encounter for screening for coronary artery disease; Smoker; Reactive depression (situational); Hypothyroidism, unspecified; Gastroesophageal reflux disease with esophagitis without hemorrhage; Gastric pain; Nausea and vomiting, unspecified vomiting type; Mixed hyperlipidemia; Unintentional weight loss; Dermatitis Social History Tobacco UseTypesPacks/DayYears UsedDateSmoking Tobacco: Every DayCigarettes Smokeless Tobacco: NeverAlcohol UseStandard Drinks/WeekCommentsNever0 (1 standard drink = 0.6 oz pure alcohol)Caffeine intake : chocolatePHQ-2AnswerDate RecordedPatient Health Questionnaire-2 Mawcp062Sex and Gender InformationValueDate RecordedSex Assigned at BirthNot on fileLegal SexMale 12/17/2022 6:37 PM EDTGender IdentityNot on fileSexual OrientationNot on file documented as of this encounter Last Filed Vital Signs Vital SignReadingTime TakenCommentsBlood Wmaattys248/7807/26/2025 8:12 AM EDT Coeiq529107/26/2025 8:12 AM GHIXpzkfgvhmnw10.4 ??C (97.5 ??F)07/26/2025 8:12 AM EDTRespiratory Rate--Oxygen Gtcfdezefr14%07/26/2025 8:12 AM EDTInhaled Oxygen Concentration--Rjkxbg86.9 kg (112 lb 3.2 oz)07/26/2025 8:12 AM JZNNspbnm449.3 cm (5' 9 )07/26/2025 8:12 AM EDTBody Mass Index16.5707/26/2025 8:12 AM EDT documented in this encounter Functional Status * Over the past 2 weeks, how often have you been bothered by any of the following problems?QuestionAnswerDate of AssessmentAuthorLittle interest or pleasure in doing thingsNearly every day07/26/2025 8:11 AM Isabelle Godfrey MAFeeling down, depressed, or hopelessNearly every day07/26/2025 8:11 AM Isabelle Godfrey MAPatient Health Questionnaire-2 Hqfcw070 8:11 AM Isabelle Godfrey MA * QuestionAnswerDate of AssessmentAuthorTrouble falling or staying asleep, or sleeping too muchNearly every day07/26/2025 8:11 AM Isabelle Godfrey MA Feeling tired or having little energyNearly every day07/26/2025 8:11 AM EDT SepidehIsabelle saldana MAPoor appetite or overeatingNearly every day07/26/2025 8:11 AM EDIsabelle Shaver MAFeeling bad about yourself - or that you are a failure or have let yourself or your family downNearly every day07/26/2025 8:11 AM Isabelle Godfrey MATrouble concentrating on things, such as reading the newspaper or watching televisionNearly every day07/26/2025 8:11 AM Isabelle Godfrey MAMoving or speaking so slowly that other people could have noticed? Or the opposite - being so fidgety or restless that you have been moving around a lot more than usual.Not at all07/26/2025 8:11 AM Isabelle Gore MAThoughts that you would be better off or hurting yourself in some wayNot at all07/26/2025 8:11 AM Isabelle Godfrey MA Patient Health Questionnaire-9 Desni572107/26/2025 8:11 AM Isabelle Godfrey MA * If you checked off any problems on this questionnaire,QuestionAnswerDate of AssessmentAuthorHow difficult have these problems made it for you to do your work, take care of things at home, or get along with other people?Extremely qrdvfgufz54/22/2025 8:11 AM Isabelle Godfrey MA documented as of this encounter Progress Notes * Dg Galo, DO - 07/26/2025 8:20 AM EDT Images from the original note were not included. [facility] SUBJECTIVE: HPI: Ole Stephens is a 59 y.o. male who presents with chief complaint of Establish Care Pt states that he is here to establish care. Pt states he would like yearly labs. Pt states that he has been losing weight. Pt states he started to lose weight about 7 months ago. Pt states he was at about 143lb and is at 112lb today. Pt states that he has been having pain and numbness that goes down to his feet. Pt states the pain comes and goes. Pt states that this has been going for about a month ago. Pt states that for the last 4 days he has had numbness in his feet and toes. Pt states that he has anxiety that is not controlled. Pt states that he was taking lorazepam before. Pt states that he has been dealing with a short fuse. Pt states that he has been snapping at people frequently Pt states that he is having pain in his tailbone and his having difficulty walking and is falling down. Pt states that this pain started about 2 months ago. Pt Denies injury. Pt states the pain is constant. Pt states his back pain has been going on for over a year. Pt states he does see pain management at [facility]. I have reviewed and reconciled the history and medication list with the patient today. History of Present Illness The patient presents with weight loss, anxiety, back pain, leg numbness, and a skin laceration. Weight Loss - He has lost 30 pounds over 7 months without dietary changes, primarily consuming yogurt and lacking appetite. - No blood in stool. - History of gastrointestinal issues, including constipation. - Underwent stomach x-rays due to vomiting but no endoscopy. Leg Numbness - For 4 days, he has had numbness and pain in both legs from knees to feet, worse in toes, alleviated by walking at night. - Numbness intensifies when lying down. Back Pain - Severe tailbone and upper back pain impedes walking, causing falls. - Injections for back pain initially effective but now ineffective. - Scheduled for MRI on 08/10/2025. - Under pain management care, taking meloxicam, gabapentin, muscle relaxant, and diclofenac for arthritis, worse at night and in cold weather. Anxiety - Heightened anxiety possibly leading to nervous breakdowns. - Previously on lorazepam for severe anxiety attacks causing fainting, now on Zoloft 100 mg twice daily. Skin Laceration - Sustained a cut while shaving, treated with ointment for 1.5 months, condition worsened and painful. - Tried Bactine zinc, which exacerbated condition. - Emergency care prescribed bacitracin, providing some relief. PAST MEDICAL HISTORY: - Gastrointestinal issues, including constipation - Anxiety - Arthritis - Acid reflux SOCIAL HISTORY Smokes a pack a day since age [age]. Smokes marijuana daily. FAMILY HISTORY Family history of stomach problems, including constipation. MEDICATIONS - Meloxicam - Gabapentin - Muscle relaxant - Diclofenac - Zoloft: 100 mg, oral, twice daily - Pantoprazole: oral, daily - Sucralfate: oral, as needed Depression: At risk (07/26/2025) PHQ-2 PHQ-2 Score: 6 reports that he has been smoking cigarettes. He has never used smokeless tobacco. He reports current drug use. Drug: Marijuana. He reports that he does not drink alcohol. OBJECTIVE: 11/29/2024 11:05 AM 02/06/2025 8:38 AM 02/28/2025 10:11 AM 05/24/2025 10:35 AM 06/15/2025 3:49 PM 06/21/2025 11:32 AM 07/26/2025 8:12 AM Vitals BMI 16.69 kg/m2 17.1 kg/m2 16.89 kg/m2 16.69 kg/m2 16.83 kg/m2 16.69 kg/m2 16.57 kg/m2 BSA (m2) 1.58 m2 1.6 m2 1.59 m2 1.58 m2 1.59 m2 1.58 m2 1.57 m2 Systolic 122 122 112 110 130 122 136 Diastolic 74 84 76 78 68 78 78 Heart Rate 56 54 54 55 84 80 68 SpO2 99 % 98 % 98 % 99 % 96 % 98 % 99 % Temp 97.3 ??F 97.5 ??F Resp 17 16 16 17 17 16 Height (in) 5' 9 5' 9 5' 9 5' 9 5' 9 5' 9 5' 9 Weight (lb) 113 115.8 114.4 113 114 113 112.2 Visit Report Report Report Report Report Report Report Report Physical Exam Physical Exam General Appearance: Alert, no distress. Cachectic. Respiratory: No respiratory distress, normal work of breathing. CTA bilat without wheezes or ronchi. Cardiovascular: RRR, no murmurs. Skin: Warm and dry, no rash. Neurological: Normal. Psychiatric: normal affect, normal thought content. Results Laboratory Studies Prostate cancer screening test in February was normal. Recent Results (from the past 4 weeks) CBC and differential Collection Time: 07/27/25 8:42 AM Result Value Ref Range WBC 12.3 (H) 3.4 - 10.8 x10E3/uL RBC 4.73 4.14 - 5.80 x10E6/uL Hgb 13.7 13.0 - 17.7 g/dL Hct 42.1 37.5 - 51.0 % MCV 89 79 - 97 fL MCH 29.0 26.6 - 33.0 pg MCHC 32.5 31.5 - 35.7 g/dL RDW 14.3 11.6 - 15.4 % Platelets 401 150 - 450 x10E3/uL Neutrophils 61 Not Estab. % Lymphs 28 Not Estab. % Monocytes 8 Not Estab. % Eos 2 Not Estab. % Basos 1 Not Estab. % Neutrophils Abs 7.5 (H) 1.4 - 7.0 x10E3/uL Lymphs Abs 3.4 (H) 0.7 - 3.1 x10E3/uL MonocytesAbs 1.0 (H) 0.1 - 0.9 x10E3/uL Eos Abs 0.2 0.0 - 0.4 x10E3/uL Baso Abs 0.1 0.0 - 0.2 x10E3/uL Immature Granulocytes 0 Not Estab. % Immature Grans Abs 0.0 0.0 - 0.1 x10E3/uL Comprehensive metabolic panel Collection Time: 07/27/25 8:42 AM Result Value Ref Range Glucose 102 (H) 70 - 99 mg/dL BUN 23 6 - 24 mg/dL Creat 0.81 0.76 - 1.27 mg/dL EGFR 102 >59 mL/min/1.73 BUN/Creat Ratio 28 (H) 9 - 20 Sodium 140 134 - 144 mmol/L Potassium 4.6 3.5 - 5.2 mmol/L Chloride 102 96 - 106 mmol/L Carbon Dioxide 24 20 - 29 mmol/L Calcium 9.1 8.7 - 10.2 mg/dL Protein Total 6.7 6.0 - 8.5 g/dL Albumin 4.2 3.8 - 4.9 g/dL Globulin Total 2.5 1.5 - 4.5 g/dL Bili Total 0.5 0.0 - 1.2 mg/dL Alk Phosphatase 102 47 - 123 IU/L AST 30 0 - 40 IU/L ALT 31 0 - 44 IU/L Lipid panel Collection Time: 07/27/25 8:42 AM Result Value Ref Range Cholesterol, Total 171 100 - 199 mg/dL Triglycerides 135 0 - 149 mg/dL HDL Cholesterol 43 >39 mg/dL VLDL Cholesterol Cristofer 24 5 - 40 mg/dL LDL Chol Calc (NIH) 104 (H) 0 - 99 mg/dL TSH Collection Time: 07/27/25 8:42 AM Result Value Ref Range TSH 7.650 (H) 0.450 - 4.500 uIU/mL T4, free Collection Time: 07/27/25 8:42 AM Result Value Ref Range T4Free(Direct) 1.04 0.82 - 1.77 ng/dL C-reactive protein Collection Time: 07/27/25 8:42 AM Result Value Ref Range C-Reactive Protein Quant <1 0 - 10 mg/L Sedimentation rate, automated Collection Time: 07/27/25 8:42 AM Result Value Ref Range Sed Rate-Westergren 12 0 - 30 mm/hr ASSESSMENT AND PLAN: Assessment/Plan Diagnoses and all orders for this visit: Wellness examination - CBC and differential; Future - Comprehensive metabolic panel; Future - Lipid panel; Future Screening for colon cancer - Ambulatory referral to General Surgery; Future Severe back pain - diclofenac (Voltaren) 75 MG EC tablet; Take 1 tablet (75 mg) by mouth in the morning and 1 tablet(75 mg) before bedtime. Anxiety - hydrOXYzine pamoate (Vistaril) 50 MG capsule; Take 1 capsule (50 mg) by mouth every 6 (six) hoursif needed for anxiety Encounter for screening for coronary artery disease - CBC and differential; Future - Comprehensive metabolic panel; Future - Lipid panel; Future Smoker - CT chest w IV contrast; Future Reactive depression (situational) - sertraline (Zoloft) 100 MG tablet; Take 2 tablets (200 mg) by mouth at bedtime Hypothyroidism, unspecified - levothyroxine (Synthroid, Levoxyl) 100 MCG tablet; Take 1 tablet (100 mcg) by mouth in the morning. Take before meals. - TSH; Future - T4, free; Future Gastroesophageal reflux disease with esophagitis without hemorrhage - CT abdomen pelvis w IV contrast; Future - pantoprazole (ProtoNix) 40 MG EC tablet; Take 1 tablet (40 mg) by mouth Daily Do not crush, chew,or split. Gastric pain - CT abdomen pelvis w IV contrast; Future - sucralfate (Carafate) 1 g tablet; Take 1 tablet (1 g) by mouth 3 (three) times a day as needed (reflux) Nausea and vomiting, unspecified vomiting type - CT abdomen pelvis w IV contrast; Future - sucralfate (Carafate) 1 g tablet; Take 1 tablet (1 g) by mouth 3 (three) times a day as needed (reflux) Mixed hyperlipidemia - atorvastatin (Lipitor) 20 MG tablet; Take 1 tablet (20 mg) by mouth Daily Unintentional weight loss - CT abdomen pelvis w IV contrast; Future - CT chest w IV contrast; Future - TSH; Future - T4, free; Future - C-reactive protein; Future - Sedimentation rate, automated; Future - Ambulatory referral to General Surgery; Future Dermatitis - triamcinolone (Kenalog) 0.1 % cream; Apply topically in the morning and before bedtime. Assessment & Plan 1. Unexplained weight loss: Acute. - Comprehensive blood workup today to assess CBC, kidney, liver, and thyroid function. - CT scan of chest, abdomen, and pelvis ordered. - Referral for colonoscopy. 2. Anxiety: Chronic. - Prescribed mirtazapine for anxiety and sleep. - Vistaril as needed for panic attacks. 3. Back pain: Chronic. - CT scan to evaluate cause. - Currently taking meloxicam, gabapentin, and muscle relaxant. 4. Numbness in legs and toes. - Recommended OTC magnesium supplements. - If ineffective, consider alpha-lipoic acid. 5. Skin laceration. - Prescribed topical cream twice daily. 6. Medication management. - Current medications: meloxicam, gabapentin, muscle relaxant, Zoloft 100 mg, pantoprazole, sucralfate as needed. - Refills as necessary. Follow-up in 1 month. 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[facility]) History of ETOH abuse Persistent depressive disorder [2] Past Medical History: Diagnosis Date Allergies Anxiety Bipolar disorder (HCC) Chest discomfort Closed head injury 10/2016 Fall Degenerative disease of basal ganglia (HCC) Diaphoresis Dysfunction of eustachian tube Esophageal reflux Gastritis and gastroduodenitis Hyperlipidemia Hypothyroidism Loss of appetite Seizure (HCC) Vitamin B 12 deficiency documented in this encounter Plan of Treatment DateTypeDepartmentCare Team (Latest Contact Info)Gtyteqeddlf23/07/2025 9:15 AM ESTConsult [facility] [address] [place] [id number] Samuel Taveras MD [facility] [facility] [address] [place] [address] 08/23/2025 10:30 AM ESTOffice Visit [facility] [address] [place] [id number] Munira Freedman NP [address] [place] [address] 09/04/2025 8:40 AM ESTOffice Visit [facility] [address] [place] [phone] Dg Galo, [address] [place] [address] NameTypePriorityAssociated DiagnosesOrder ScheduleCT abdomen pelvis w IV contrastImagingRoutine Gastroesophageal reflux disease with esophagitis without hemorrhage Gastric pain Nausea and vomiting, unspecified vomiting type Unintentional weight loss Expected: 07/26/2025, Expires: 07/26/2026T chest w IV contrastImagingRoutine Smoker Unintentional weight loss Expected: 07/26/2025, Expires: 07/26/2026NameTypePriorityAssociated Diagnoses Order ScheduleAmbulatory referral to General SurgeryOutpatient ReferralRoutine Screening for colon cancer Unintentional weight loss Expected: 07/26/2025 (Approximate), Expires: 01/24/2026documented as of this encounter Procedures Procedure NamePriorityDate/TimeAssociated DiagnosisCommentsSED RATE BY MODIFIED HDUGNNPJGSRpcnnsb70/23/2025 8:42 AM EDT Unintentional weight loss CBC (INCLUDES DIFF/PLT)Yfykwzm6407/27/2025 8:42 AM EDT Wellness examination Encounter for screening for coronary artery disease C-REACTIVE LKOHZASKuaaeva64/23/2025 8:42 AM EDT Unintentional weight loss CINKxigzjp20/23/2025 8:42 AM EDT Hypothyroidism, unspecified Unintentional weight loss T4, XXRJFzqopoz39/23/2025 8:42 AM EDT Hypothyroidism, unspecified Unintentional weight loss LIPID FBXZVEfrwidm85/23/2025 8:42 AM EDT Wellness examination Encounter for screening for coronary artery disease COMPREHENSIVE METABOLIC TNMSKHiqwtkd51/23/2025 8:42 AM EDT Wellness examination Encounter for screening for coronary artery disease documented in this encounter Results * Sedimentation rate, automated (07/27/2025 8:42 AM EDT)ComponentValueRef Range Test MethodAnalysis TimePerformed AtPathologist SignatureSed Rate-Njnrgivdvm86 0 - 30 mm/hrLABCORPSpecimen (Source)Anatomical Location / LateralityCollection Method / VolumeCollection TimeReceived TimeBloodVenous blood specimen / Znqxugw0107/27/2025 8:42 AM EDT1 Narrative [facility] - 07/28/2025 8:08 AM EDT Performed at: [address] ??[id number] [employer]: Henri Figueroa PhD, Phone: ??[phone] Authorizing ProviderResult TypeResult StatusTimothy Izaiah Galo DOLAB BLOOD ORDERABLESFinal ResultPerforming OrganizationAddressCity/State/ZIP CodePhone Number [facility] * C-reactive protein (07/27/2025 8:42 AM EDT)ComponentValueRef RangeTest Method Analysis TimePerformed AtPathologist SignatureC-Reactive Protein Quant<10 - 10 mg/LLABCORPSpecimen (Source)Anatomical Location / LateralityCollection Method / VolumeCollection TimeReceived TimeBloodVenous blood specimen / Unknown 07/27/2025 8:42 AM EDT1 Narrative [facility] - 07/28/2025 8:08 AM EDT Performed at: [address] ??[id number] [employer]: Henri Figueroa PhD, Phone: ??[phone] Authorizing ProviderResult TypeResult StatusTimothy L [place] DOLAB BLOOD ORDERABLESFinal ResultPerforming OrganizationAddressCity/State/ZIP CodePhone Number [facility] * T4, free (07/27/2025 8:42 AM EDT)ComponentValueRef RangeTest MethodAnalysis TimePerformed AtPathologist QuvuvkkzjA3Axdd(Direct)1.040.82 - 1.77 ng/dL [facility]PSpecimen (Source)Anatomical Location / LateralityCollection Method / VolumeCollection TimeReceived TimeBloodVenous blood specimen / Unknown 07/27/2025 8:42 AM EDT1 Narrative [facility] - 07/28/2025 8:08 AM EDT Performed at: 01 - [address] ??[id number] [employer]: Henri Figueroa PhD, Phone: ??[phone] Authorizing ProviderResult TypeResult StatusTimothy L [place] DOLAB BLOOD ORDERABLESFinal ResultPerforming OrganizationAddressCity/State/ZIP CodePhone Number [facility] * (ABNORMAL) TSH (07/27/2025 8:42 AM EDT)ComponentValueRef RangeTest Method Analysis TimePerformed AtPathologist SignatureTSH7.650(H)0.450 - 4.500 uIU/mL [facility]PSpecimen (Source)Anatomical Location / LateralityCollection Method / VolumeCollection TimeReceived TimeBloodVenous blood specimen / Unknown 07/27/2025 8:42 AM EDT1 Narrative [facility] - 07/28/2025 8:08 AM EDT Performed at: 01 - [address] ??[id number] [employer]: Henri Figueroa PhD, Phone: ??[phone] Authorizing ProviderResult TypeResult StatusTimothy L [place] DOLAB BLOOD ORDERABLESFinal ResultPerforming OrganizationAddressCity/State/ZIP CodePhone Number [facility] * (ABNORMAL) Lipid panel (07/27/2025 8:42 AM EDT)ComponentValueRef RangeTest MethodAnalysis TimePerformed AtPathologist SignatureCholesterol, Bcflp390441 - 199 mg/uFJSNVCUDFdoxelkwmmamt2281 - 149 mg/dLLABCORPHDL Ygjaebdqybq41>39 mg/dLLABCORPVLDL Cholesterol Xly416 - 40 mg/dLLABCORPLDL Chol Calc (NIH)104(H) 0 - 99 mg/dLLABCORPSpecimen (Source)Anatomical Location / LateralityCollection Method / VolumeCollection TimeReceived TimeBloodVenous blood specimen / Vlsrmej1507/27/2025 8:42 AM EDT1 Narrative [facility] - 07/28/2025 8:08 AM EDT Performed at: 01 - [address] ??[id number] [employer]: Henri Figueroa PhD, Phone: ??[phone] Authorizing ProviderResult TypeResult StatusTimtristen Galo [facility] BLOOD ORDERABLESFinal ResultPerforming OrganizationAddressCity/State/ZIP CodePhone Number [facility] * (ABNORMAL) Comprehensive metabolic panel (07/27/2025 8:42 AM EDT)Component ValueRef RangeTest MethodAnalysis TimePerformed AtPathologist SignatureGlucose 102(H)70 - 99 mg/sLETKVMATABF632 - 24 mg/dLLABCORPCreat0.810.76 - 1.27 mg/dL KWYPMXIDRCV157>59 mL/min/1.73LABCORPBUN/Creat Ratio28(H)9 - 87TJQQIRANhdheb209 134 - 144 mmol/[facility]ABC[facility]PPotassium4.63.5 - 5.2 mmol/KCWEBCTGLfrnkwak06162 - 106 mmol/LLABCORPCarbon Gjchscs7813 - 29 mmol/LLABCORPCalcium9.18.7 - 10.2 mg/dL [facility]PProtein Total6.76.0 - 8.5 g/dLLABCORPAlbumin4.23.8 - 4.9 g/dLLABCORP Globulin Total2.51.5 - 4.5 g/dLLABCORPBili Total0.50.0 - 1.2 mg/dLLABCORPAlk Npksdblrfzl36857 - 123 IU/AKEEDMHHADK833 - 40 IU/OVHAAJEIGFS389 - 44 IU/L [facility]PSpecimen (Source)Anatomical Location / LateralityCollection Method / VolumeCollection TimeReceived TimeBloodVenous blood specimen / Unknown 07/27/2025 8:42 AM EDT1 Narrative [facility] - 07/28/2025 8:08 AM EDT Performed at: 01 - [address], [place], [place] ??[id number] [employer]: Henri Figueroa PhD, Phone: ??[phone] Authorizing ProviderResult TypeResult StatusTimtristen Galo DOLAB BLOOD ORDERABLESFinal ResultPerforming OrganizationAddressCity/State/ZIP CodePhone Number [facility] * (ABNORMAL) CBC and differential (07/27/2025 8:42 AM EDT)ComponentValueRef RangeTest MethodAnalysis TimePerformed AtPathologist XlwffnimsRIV57.3(H)3.4 - 10.8 x10E3/uLLABCORPRBC4.734.14 - 5.80 x10E6/oFCAVFJDELtn10.713.0 - 17.7 g/dL JTWJLYZWpq72.137.5 - 51.0 %DDUEECWZAW9808 - 97 qNLWURGURERB84.026.6 - 33.0 pg KYCUORFAWZE68.531.5 - 35.7 g/mPLSQLYSAAGN54.311.6 - 15.4 %YRETDXHFgdmuvunx165 150 - 450 x10E3/vGSCNUNYZNuzehxfvdqa80Nnm Estab. %QLBSEROFoamko71Hsa Estab. % RFVFDEOOrbpdqdih0Roz Estab. %MIWFSEEIkq1Okb Estab. %CIJBHDKOdnhk4Rbm Estab. % [facility]ABCORPNeutrophils Abs7.5(H)1.4 - 7.0 x10E3/uLLABCORPLymphs Abs3.4(H)0.7 - 3.1 x10E3/uLLABCORPMonocytesAbs1.0(H)0.1 - 0.9 x10E3/uLLABCORPEos Abs0.20.0 - 0.4 x10E3/uLLABCORPBaso Abs0.10.0 - 0.2 x10E3/uLLABCORPImmature Uqbfupzfebka2Acz Estab. %LABCORPImmature Grans Abs0.00.0 - 0.1 x10E3/uLLABCORPSpecimen (Source) Anatomical Location / LateralityCollection Method / VolumeCollection Time Received TimeBloodVenous blood specimen / Cuekdfb9407/27/2025 8:42 AM EDT 07/27/2025 Narrative [facility] - 07/28/2025 8:08 AM EDT Performed at: 01 - [facility] [address] ??[id number] [employer]: Henri Figueroa PhD, Phone: ??[phone] Authorizing ProviderResult TypeResult StatusDg Galo DOLAB BLOOD ORDERABLESFinal ResultPerforming OrganizationAddressCity/State/ZIP CodePhone Number [facility] documented in this encounter Visit Diagnoses Diagnosis Wellness examination- Primary Screening for colon cancer Special screening for malignant neoplasms, colon Severe back pain Anxiety Anxiety state, unspecified Encounter for screening for coronary artery disease Smoker Tobacco use disorder Reactive depression (situational) Dysthymic disorder Hypothyroidism, unspecified Gastroesophageal reflux disease with esophagitis without hemorrhage Gastric pain Dyspepsia and other specified disorders of function of stomach Nausea and vomiting, unspecified vomiting type Mixed hyperlipidemia Unintentional weight loss Loss of weight Dermatitis Contact dermatitis and other eczema, due to unspecified cause documented in this encounter Additional Health Concerns AssessmentNoted TimePHQ-9 Depression Total Score: 8:11 AM EDT documented as of this encounter Care Teams Team MemberRelationshipSpecialtyStart DateEnd Date Dg Galo DO [address] [place] [address] PCP - GeneralFamily Ezxqiwed55/21/25documented as of this encounter
[2025-07-28 16:35] VITALS: BP 151/87; PULSE 89; TEMP 37; O2SAT 100; BMI 16.5
--- NOTE | 2025-07-28 16:41 | PC.NURSE ---
pt presents to ED very anxious. pt is tachypneic, but not in any resp distress. denies any suicidal/homicidal ideations. took a hydroxyzine around 1500, not helping. has apt with on sep 04 but doesnt feel like he can wait that long.
[2025-07-28] MEDS: LORAZEPAM 0.5 MG TABLET PO (16:56)
--- OUTSIDE RECORDS SUMMARY | 2025-07-28 17:01 | XMS_ITS | Encounter Summary ---
Author Organization [facility] [employer] [facility] tem Address [id number] [address] [place] [address] Care Team Providers Care Equipment Inspector Name Role Phone Alexander Lassiter MD Primary Care Provider [phone] Encounter Details DateTypeDepartmentCare Team (Latest Contact Info)Igikcacnuhd35/15/2025Travel Social History Tobacco UseTypesPacks/DayYears UsedDateSmoking Tobacco: Every DayCigarettes Smokeless Tobacco: NeverAlcohol UseStandard Drinks/WeekCommentsNot Currently0 (1 standard drink = 0.6 oz pure alcohol)soberChildcareAnswerDate RecordedChildcare Eubjnyh8903/16/2019EmploymentAnswerDate IxtrtimiIlgjxecgkcUzhywvs32/12/2019Hunger ScreeningAnswerDate RecordedWithin the past 12 months we worried whether our food would run out before we got money to buy more.Never True07/19/2025Within the past 12 months the food we bought just didn't last and we didn't have money to get more.Never True07/19/2025Sex and Gender InformationValueDate RecordedSex Assigned at BirthNot on fileLegal GyvSjgu9905/10/2015 11:28 AM EDTGender Identity Not on fileSexual OrientationNot on filedocumented as of this encounter Plan of Treatment DateTypeDepartmentCare Team (Latest Contact Info)Huushgvwkxp27/06/2025 7:[address] [facility] [address] [place] [address] Jackelin Omalley PA-C [address] [place], [place] [address] 08/22/2025 8:[address] [facility] [address] [facility] [place] [address] Zarina Holt, PRINTING GREY CLOTH TENDER-AMMONIA DISTILLER [address] [place] [place] [place] [address] documented as of this encounter Goals GoalPatient Goal TypeAssociated ProblemsRecent ProgressPatient-Stated?Author Autogenerated Goal Care PlanAutogenerated ProblemNoPotts, Elizabethdocumented as of this encounter Visit Diagnoses Not on filedocumented in this encounter Additional Health Concerns Active ProblemsNoted DateDiagnosed DateAutogenerated Ailrfhx5007/11/2025documented as of this encounter Care Teams Team MemberRelationshipSpecialtyStart DateEnd Date Alexander Lassiter MD [address] [place] [address] PCP - GeneralFamily Tzipwsyx20/5/2510documented as of this encounter
--- OUTSIDE RECORDS SUMMARY | 2025-07-28 17:01 | XMS_ITS | Encounter Summary ---
Author Organization [facility] [employer] [facility] tem Address [facility] [id number] [address] [place] [address] Care Team Providers Care Administrative Office Clerk Name Role Phone Dg Galo DO Primary Care Provider [phone] Encounter Details DateTypeDepartmentCare Team (Latest Contact Info)Akfdmgegubh43/17/2025Telephone [facility] [address] [place] [address] Leny Madsen RN Social History Tobacco UseTypesPacks/DayYears UsedDateSmoking Tobacco: Every DayCigarettes Smokeless Tobacco: NeverAlcohol UseStandard Drinks/WeekCommentsNot Currently0 (1 standard drink = 0.6 oz pure alcohol)soberChildcareAnswerDate RecordedChildcare Olpscol0503/16/2019EmploymentAnswerDate ZozrponjOkycyzvzomKjqsbxg46/12/2019Hunger ScreeningAnswerDate RecordedWithin the past 12 months we worried whether our food would run out before we got money to buy more.Never True07/19/2025Within the past 12 months the food we bought just didn't last and we didn't have money to get more.Never True07/19/2025Sex and Gender InformationValueDate RecordedSex Assigned at BirthNot on fileLegal MwcUhlv4005/10/2015 11:28 AM EDTGender Identity Not on fileSexual OrientationNot on filedocumented as of this encounter Miscellaneous Notes * Telephone Encounter - Leny Madsen RN - 07/21/2025 3:07 PM EDT Attempted to return patient's call about what he could do and what medications he could take for knee arthritis. No voicemail was set up. * Telephone Encounter - Stacie Carranza RN - 07/21/2025 3:07 PM EDT Pt calls back, states he's noticed improvement from gabapentin increase from last OV, also taking baclofen 10 mg BID, voltaren gel on his low back, meloxicam 15 daily. He wants to know what he can dofor knee arthritis. Advised pt he can add diclofenac for knee pain. PVU Asks if there is anything else he can do for pain relief. * Telephone Encounter - Jackelin Omalley PA-C - 07/21/2025 3:07 PM EDT He can do ice or heat and try an over the counter brace. We can see him and get xray and see if we can do an injection in his knee * Telephone Encounter - Steffi Israel RN - 07/21/2025 3:07 PM EDT Patient was seen 07/19 for thoracic pain. He is scheduled for MRI follow up on 08/22/2025. Should we try to find something sooner for his knee or can X-ray be ordered now? * Telephone Encounter - Jackelin Omalley PA-C - 07/21/2025 3:07 PM EDT We can order an xray for his knee and then have him follow up and we can go over it * Telephone Encounter - Steffi Israel RN - 07/21/2025 3:07 PM EDT Call placed to patient to clarify which knee is painful. He states both knees are equally painful due to arthritis. Patient was advised of provider's recommendations and is agreeable the plan. X-ray pended for bilateral knees for review and signature if you agree. Patient also has a new PCP. The information has been updated in [facility]. * Addendum Note - Steffi Israel RN - 07/21/2025 3:07 PM EDTAddended by: STEFFI ISRAEL on: 07/26/2025 05:01 PM Modules accepted: Orders documented in this encounter Plan of Treatment DateTypeDepartmentCare Team (Latest Contact Info)Mqdswimfzzr35/06/2025 7:15 AM ESTAppointment [facility] - [facility] [address] [address] Jackelin Omalley, PAAngC [address] [place] [address] 08/22/2025 8:00 AM ESTOffice Visit [facility] [address] [address] Zarina Holt, SENIOR ANALYST DEVELOPER-WEDDING COORDINATOR [address] [address] documented as of this encounter Goals GoalPatient Goal TypeAssociated ProblemsRecent ProgressPatient-Stated?Author Autogenerated Goal Care PlanAutogenerated ProblemNoPotts, Elizabethdocumented as of this encounter Visit Diagnoses Diagnosis Chronic pain of left knee- Primary Chronic pain of right knee documented in this encounter Additional Health Concerns Active ProblemsNoted DateDiagnosed DateAutogenerated Vbcazzm2907/11/2025documented as of this encounter Care Teams Team MemberRelationshipSpecialtyStart DateEnd Date Dg Galo DO [address] [facility] [address] [place] [address] PCP - GeneralOsteopathic Oftbtylx60/22/25documented as of this encounter
--- OUTSIDE RECORDS SUMMARY | 2025-07-28 17:01 | XMS_ITS | Encounter Summary ---
Author Organization [facility] Address [id number] [address] [id number] Care Team Providers Care State Attorney Name Role Phone Dg Galo Primary Care Provider [phone] Reason for Visit * Auth/CertSpecialtyDiagnoses / ProceduresReferred By ContactReferred To Contact Diagnoses unintentional weight loss Procedures NC ESOPHAGOGASTRODUODENOSCOPY TRANSORAL DIAGNOSTIC NC COLONOSCOPY FLX DX W/COLLJ SPEC WHEN PFRMD ESOPHAGOGASTRODUODENOSCOPY DIAGNOSTIC COLONOSCOPY DIAGNOSTIC / SCREENING Gustavo Castro DO [address] [place] [address] Phone: tel: fax: Referral IDStatusReasonStart DateExpiration DateVisits RequestedVisits [id number] Encounter Details DateTypeDepartmentCare Team (Latest Contact Info)Dbiuhyvrcol69/16/2025Hospital Encounter [facility] - Surgery [address] [place] [address] [place] [address] [place] [address] Social History Tobacco UseTypesPacks/DayYears UsedDateSmoking Tobacco: Every DayCigarettes Smokeless Tobacco: NeverAlcohol UseStandard Drinks/WeekCommentsNot Currently0 (1 standard drink = 0.6 oz pure alcohol)soberChildcareAnswerDate RecordedChildcare Pfkkruy3203/16/2019EmploymentAnswerDate UdylvxnpTftodsgnvqPnghapw72/12/2019Hunger ScreeningAnswerDate RecordedWithin the past 12 months we worried whether our food would run out before we got money to buy more.Never True07/19/2025Within the past 12 months the food we bought just didn't last and we didn't have money to get more.Never True07/19/2025Sex and Gender InformationValueDate RecordedSex Assigned at BirthNot on fileLegal FiuYvgd5705/10/2015 11:28 AM EDTGender Identity Not on fileSexual OrientationNot on filedocumented as of this encounter Plan of Treatment DateTypeDepartmentCare Team (Latest Contact Info)Vkotcwecihv47/06/2025 7:15 AM ESTAppointment [facility] [address] [place] [address] Jackelin Omalley, PA-C [address] [facility] 2nd [address] [place], [place] [address] 08/22/2025 8:00 AM ESTOffice Visit [facility] [address] [place] [address] Zarina Holt, ELECTRICIAN AIRCRAFT-APPLIED RESEARCHER [address] [place], [place] [address] documented as of this encounter Goals GoalPatient Goal TypeAssociated ProblemsRecent ProgressPatient-Stated?Author Autogenerated Goal Care PlanAutogenerated ProblemNoPotts, Elizabethdocumented as of this encounter Visit Diagnoses Not on filedocumented in this encounter Additional Health Concerns Active ProblemsNoted DateDiagnosed DateAutogenerated Tmfvdfg0807/11/2025documented as of this encounter Care Teams Team MemberRelationshipSpecialtyStart DateEnd Date Dg Galo DO [address] [place] [address] PCP - GeneralOsteopathic Cottigqa79/22/25documented as of this encounter
--- OUTSIDE RECORDS SUMMARY | 2025-07-28 17:01 | XMS_ITS | Encounter Summary ---
Author Organization [employer] [facility] tem Address [facility] [id number] [address] [place] [address] Care Team Providers Care Automotive Airconditioning Mechanic Name Role Phone Alexander Lassiter MD Primary Care Provider [phone] Encounter Details DateTypeDepartmentCare Team (Latest Contact Info)Lpvltiletkc76/14/2025Telephone [facility] [address] [place] [address] Gustavo Castro, DO [address] [place], [place] [address] Social History Tobacco UseTypesPacks/DayYears UsedDateSmoking Tobacco: Every DayCigarettes Smokeless Tobacco: NeverAlcohol UseStandard Drinks/WeekCommentsNot Currently0 (1 standard drink = 0.6 oz pure alcohol)soberChildcareAnswerDate RecordedChildcare Jrxjrbk0003/16/2019EmploymentAnswerDate ThgrpothPsvrytyvolGmxyipa92/12/2019Hunger ScreeningAnswerDate RecordedWithin the past 12 months we worried whether our food would run out before we got money to buy more.Never True07/19/2025Within the past 12 months the food we bought just didn't last and we didn't have money to get more.Never True07/19/2025Sex and Gender InformationValueDate RecordedSex Assigned at BirthNot on fileLegal UgdHfyj7905/10/2015 11:28 AM EDTGender Identity Not on fileSexual OrientationNot on filedocumented as of this encounter Miscellaneous Notes * Telephone Encounter - Karie Pope - 07/18/2025 9:53 AM EDT Ole called the office and stated he wished to cancel his colonoscopy and egd scheduled for 07/20/[address] Castro. He does not wish to reschedule at this time. I informed patient he will need another consult if he chooses to wait past 30 days to reschedule. * Telephone Encounter - ROZINA Blair - 07/18/2025 9:53 AM EDT [facility] Surgery Coordinator @ [facility] was called and patient was removed from the surgery schedule. documented in this encounter Plan of Treatment DateTypeDepartmentCare Team (Latest Contact Info)Zdkwjzwelnq40/06/2025 7:15 AM ESTAppointment [facility] - [facility] Imaging [address] [place] [address] Jackelin Omalley, PAAngC [address] [facility], 2nd [place] [address] 08/22/2025 8:00 AM ESTOffice Visit [facility] [address] [place] [address] Zarina Holt, JAVASCRIPT FRONT END DEVELOPER-POWER BARKER [address] [place], [place] [address] documented as of this encounter Goals GoalPatient Goal TypeAssociated ProblemsRecent ProgressPatient-Stated?Author Autogenerated Goal Care PlanAutogenerated ProblemNoPotts, Elizabethdocumented as of this encounter Visit Diagnoses Not on filedocumented in this encounter Additional Health Concerns Active ProblemsNoted DateDiagnosed DateAutogenerated Acyyhfa5807/11/2025documented as of this encounter Care Teams Team MemberRelationshipSpecialtyStart DateEnd Date Alexander Lassiter MD [address] [place] [address] PCP - GeneralFamily Jfsdyztl45/5/2510documented as of this encounter
--- NOTE | 2025-07-28 17:02 | CT_ITS ---
The [address] [address] Patient Name: GRACE JURADO MRN: [id number] date: 1965 Sex: M Assigned Patient Location: ER Current Patient Location: ER Accession/Order Number: [id number] Exam Date: 07/28/2025 17:24 Report Date: 07/28/2025 17:51 At the request of: YAZAN BUTLER DO Procedure: CT chest wo con CT CHEST WITHOUT IV CONTRAST: CLINICAL HISTORY: heavy smoking history, recent weight loss, SOB COMPARISON: None TECHNIQUE: Spiral images were obtained through the chest without IV contrast. This CT exam was performed using one or more following dose reduction techniques: Automated exposure control, adjustment of the mA and/or kV according to patient size, or use of iterative reconstruction technique. FINDINGS: Evaluation degraded due to lack contrast. Mediastinum:Coronary artery calcifications. No pericardial effusion, no bulky adenopathy. Lungs:Hyperinflation. Emphysematous changes with biapical bulla formation. No focal airspace opacity effusion or pneumothorax.. Abd:There are vascular calcification. Soft tissues/Bones: Degenerative changes. CT/CT chest wo con IMPRESSION: Emphysematous change. Negative acute pleural-parenchymal disease. Impression dictated by: Hayden Collado M.D. 07/28/2025 5:51 PM Dictation Location: [place] [address] Electronically authenticated by: [id number] Y Date: 07/28/2025 17:51
--- NOTE | 2025-07-28 17:02 | CT_ITS ---
The [address] [address] Patient Name: GRACE JURADO MRN: [id number] date: 1965 Sex: M Assigned Patient Location: ER Current Patient Location: Accession/Order Number: [id number] Exam Date: 07/28/2025 17:24 Report Date: 07/28/2025 18:11 At the request of: YAZAN BUTLER DO Procedure: CT abdomen pelvis w con CT ABDOMEN AND PELVIS WITH INTRAVENOUS CONTRAST: CLINICAL HISTORY: weight loss, epigastric discomfort, possible ca. COMPARISON: None TECHNIQUE: Spiral images were obtained through the abdomen and pelvis following the administration of intravenous contrast. This CT exam was performed using one or more following dose reduction techniques: Automated exposure control, adjustment of the mA and/or kV according to patient size, or use of iterative reconstruction technique. FINDINGS: Lung Bases: [No focal opacity] Organs:Cholecystectomy. Fatty liver. Otherwise liver, spleen, adrenals, kidneys, pancreas unremarkable. GI: Wall thickening gastric antrum. Zqzz-zn-cbnkmjha stool burden. No bowel obstruction.[ Visualized. No pericecal inflammatory changes. Colonic diverticulosis. Pelvis:[Bladder and prostate are grossly unremarkable.] Peritoneum/Retroperitoneum:Mild/moderate aortic plaque. Aorta is not aneurysmal. No free fluid. No bulky adenopathy.[ Abd wall/Bones:No suspicious osseous lesion. Degenerative changes both hips[ CT/CT abdomen pelvis w con IMPRESSION: No definite abdominal mass or metastatic disease identified Mild gastric wall thickening could raise possibility for gastritis. Impression dictated by: Hayden Collado M.D. 07/28/2025 6:11 PM Dictation Location: [place] [address] Electronically authenticated by: [id number] Y Date: 07/28/2025 18:11
--- OUTSIDE RECORDS SUMMARY | 2025-07-28 17:02 | XMS_ITS | Encounter Summary ---
Author Organization [facility] Address [address] [place] [address] Care Team Providers Care Mud Worker Name Role Phone Unallocated, Noms Provider Primary Care Provi alba Dg Galo DO Primary Care Provider [phone] Reason for Visit * ReasonOnset DateCommentsAppointment Msylxsf3807/24/2025 Encounter Details DateTypeDepartmentCare Team (Latest Contact Info)Jwbyvblhdge73/20/2025Telephone [facility] [address] [facility] [address] [place] [address] Dg Galo DO [address] [facility] [address] [place] [address] Appointment Request Social History Tobacco UseTypesPacks/DayYears UsedDateSmoking Tobacco: Every DayCigarettes Smokeless Tobacco: NeverAlcohol UseStandard Drinks/WeekCommentsNever0 (1 standard drink = 0.6 oz pure alcohol)Caffeine intake : chocolatePHQ-2AnswerDate RecordedPatient Health Questionnaire-2 Iqjkl429Sex and Gender InformationValueDate RecordedSex Assigned at BirthNot on fileLegal SexMale 12/17/2022 6:37 PM EDTGender IdentityNot on fileSexual OrientationNot on file documented as of this encounter Miscellaneous Notes * Telephone Encounter - Adeola Suarez - 07/25/2025 8:19 AM EDT Noted. Thanks. * Telephone Encounter - Jigna Rodriguez LPN - 07/24/2025 12:04 PM EDT It looks like he is scheduled on 07.26 for this * Telephone Encounter - Adeola Suarez - 07/24/2025 10:18 AM EDT Pt is calling to fu about npq that was filled out for Dr. Galo last week. He is concerned becausehe has lost a significant amount of weight and would like to get checked out mini. documented in this encounter Plan of Treatment DateTypeDepartmentCare Team (Latest Contact Info)Uuwrrdgzczb84/07/2025 9:15 AM ESTConsult [facility] [address] [facility] [address] [place] [address] Samuel Taveras MD [address] [facility] [address] [place] [address] 08/23/2025 10:30 AM ESTOffice Visit [facility] [place] [facility] [address] [place] [address] Munira Freedman NP [address] [place] [address] 09/04/2025 8:40 AM ESTOffice Visit [facility] [address] [place] [address] Dg Galo DO [address] [place] [address] documented as of this encounter Visit Diagnoses Not on filedocumented in this encounter Additional Health Concerns AssessmentNoted TimePHQ-9 Depression Total Score: 1609 11:28 AM EDT documented as of this encounter Care Teams Team MemberRelationshipSpecialtyStart DateEnd Date Unallocated, Noms Provider, [address] [place] [address] PCP - GeneralFamily Medicine06/27/2510 Dg Galo DO [address] [place] [address] PCP - GeneralFamily Hzeblcum67/21/25documented as of this encounter
--- OUTSIDE RECORDS SUMMARY | 2025-07-28 17:02 | XMS_ITS | Encounter Summary ---
Author Organization [facility] Address [address] [place] [address] Care Team Providers Care Contracts Attorney Name Role Phone HammondDg mclaughlin Izaiah MORIN Primary Care Provider [phone] Encounter Details DateTypeDepartmentCare Team (Latest Contact Info)Hwllnxhdive85/22/2025amboo flowsheet [facility] [address] [place] [address] Dg Galo DO [address] [place] [address] Social History Tobacco UseTypesPacks/DayYears UsedDateSmoking Tobacco: Every DayCigarettes Smokeless Tobacco: NeverAlcohol UseStandard Drinks/WeekCommentsNever0 (1 standard drink = 0.6 oz pure alcohol)Caffeine intake : chocolatePHQ-2AnswerDate RecordedPatient Health Questionnaire-2 Qhing102Sex and Gender InformationValueDate RecordedSex Assigned at BirthNot on fileLegal SexMale 12/17/2022 6:37 PM EDTGender IdentityNot on fileSexual OrientationNot on file documented as of this encounter Plan of Treatment DateTypeDepartmentCare Team (Latest Contact Info)Sdemrihwudn65/07/2025 9:15 AM ESTConsult [facility] [address] [facility] [address] [place] [address] Samuel Taveras MD [address] [facility] [address] [place] [address] 08/23/2025 10:30 AM ESTOffice Visit [facility] [address] [place] [address] Munira Freedman, MANAGER [place] [address] [place] [address] 09/04/2025 8:40 AM ESTOffice Visit [facility] [address] [place] [address] Dg Galo DO [address] [facility] [address] [place] [address] documented as of this encounter Visit Diagnoses Not on filedocumented in this encounter Additional Health Concerns AssessmentNoted TimePHQ-9 Depression Total Score: 8:11 AM EDT documented as of this encounter Care Teams Team MemberRelationshipSpecialtyStart DateEnd Date Dg Galo DO [address] [facility] [address] [place] [address] PCP - GeneralFamily Hdekpqof05/21/25documented as of this encounter
--- OUTSIDE RECORDS SUMMARY | 2025-07-28 17:02 | XMS_ITS | Patient Health Record ---
Author Organization [facility] Address [address] [place], [place] [address] Care Team Providers Care School Age Teacher Name Role Phone Azucena Vargas Primary Care Provider [phone] Alexander Cook Unavailable [phone] Reason For Referral No Information Plan Of Treatment No Information Insurance Providers Payer Name Payer Address Payer Phone Subscriber Number Group Number Insured Name Patient Relationship to Insured Coverage Start Date Coverage End Date [place] [employer] [address] [place] [address] [id number] Jennifer Stephens - patient is the insuredMedicaid CrossoverPo [address] [place], [place] [id number], CharlesSelf - patient is the insured
--- OUTSIDE RECORDS SUMMARY | 2025-07-28 17:02 | XMS_ITS | Encounter Summary ---
Author Organization [facility] Address [address] [place] [address] Care Team Providers Care Chronometer Assembler And Adjuster Name Role Phone Dg Galo DO Primary Care Provider [phone] Reason for Visit * ReasonOnset DateCommentsMed Iezuuo7507/26/2025Medication Gxjugivb44/22/2025 Encounter Details DateTypeDepartmentCare Team (Latest Contact Info)Qwxozrdssnh00/22/2025Telephone [facility] [address] [facility] [address] [place] [address] Dg Galo DO [address] [facility] [address] [place] [address] Med Refill; Medication Question Social History Tobacco UseTypesPacks/DayYears UsedDateSmoking Tobacco: Every DayCigarettes Smokeless Tobacco: NeverAlcohol UseStandard Drinks/WeekCommentsNever0 (1 standard drink = 0.6 oz pure alcohol)Caffeine intake : chocolatePHQ-2AnswerDate RecordedPatient Health Questionnaire-2 [id number] and Gender InformationValueDate RecordedSex Assigned at BirthNot on fileLegal SexMale 12/17/2022 6:37 PM EDTGender IdentityNot on fileSexual OrientationNot on file documented as of this encounter Functional Status * Over the past 2 weeks, how often have you been bothered by any of the following problems?QuestionAnswerDate of AssessmentAuthorLittle interest or pleasure in doing thingsNearly every day07/26/2025 8:11 AM EDTReinshana, Isabelle, MAFeeling down, depressed, or hopelessNearly every day07/26/2025 8:11 AM Isabelle Godfrey MAPatient Health Questionnaire-2 Svseh335 8:11 AM Isabelle Godfrey MA * QuestionAnswerDate of AssessmentAuthorTrouble falling or staying asleep, or sleeping too muchNearly every day07/26/2025 8:11 AM sIabelle Godfrey MA Feeling tired or having little energyNearly every day07/26/2025 8:11 AM Isabelle Gore MAPoor appetite or overeatingNearly every day07/26/2025 8:11 AM Isabelle Godfrey MAFeeling bad about yourself - or that [...] AM Isabelle Godfrey MA Patient Health Questionnaire-9 Lqbtt674207/26/2025 8:11 AM Isabelle Godfrey MA * If you checked off any problems on this questionnaire,QuestionAnswerDate of AssessmentAuthorHow difficult have these problems made it for you to do your work, take care of things at home, or get along with other people?Extremely tjohhmplz19/22/2025 8:11 AM Isabelle Godfrey MA documented as of this encounter Miscellaneous Notes * Telephone Encounter - Isabelle Bunn MA - 07/28/2025 3:38 PM EDT Spoke to pt on the phone and explained that Dr. Galo said he should not be feeling that way and to try 1 tablet daily to see how he feels. Pt states he took 1 tablet last night. Did re-explain thatthe magnesium should not be having that kind of effect. Pt states he will try it through the weekend and let us know on Thursday how he feels * Telephone Encounter - Isabelle Bunn MA - 07/28/2025 2:25 PM EDT Attempted to contact pt but went a VM that was not set up at this time. * Telephone Encounter - Dg Galo DO - 07/28/2025 2:07 PM EDT There is no reason magnesium should make him feel this way, he should try 1 pill daily moving forward and keep seeing how he feels * Telephone Encounter - Adeola Suarez - 07/28/2025 1:05 PM EDT Pt states he is waking up in the morning doped up . This started 2 days ago when he started magnesium. He took 2 pills at night the first day and he felt he couldn't drive. The next night he just took [address] but still is feeling doped up . He is very concerned about this and would like a call back. * Telephone Encounter - Isabelle Bunn MA - 07/27/2025 8:16 AM EDT Spoke to pt about his medication and what they are for. Pt voiced understanding. * Telephone Encounter - Dg Galo DO - 07/26/2025 5:44 PM EDT Diclofenac is for arthritis Magnesium is for numbness/tingling in his toes * Telephone Encounter - Adeola Suarez - 07/26/2025 3:06 PM EDT Pt would like a call back regarding medications prescribed today. He would like to know which med is for his arthritis. He also would like to know if the magnesium glycinate is for arthritis. * Telephone Encounter - Isabelle Bunn MA - 07/26/2025 2:15 PM EDT Spoke to pt on the phone about the otc medication. Pt voiced understanding and states he forgot that was mentioned. * Telephone Encounter - Dg Galo DO - 07/26/2025 2:08 PM EDT Those are both OTC as discussed today * Telephone Encounter - Isabelle Bunn MA - 07/26/2025 1:15 PM EDT These are not on the patient medication list * Telephone Encounter - Letty Bui - 07/26/2025 1:07 PM EDT Patient called in stating that he was missing a few medications that he was supposed to be prescribed after today's visit with Dr. Galo. He says that he is missing the magnesium glycinate and also alpha lipoic acid medication. [facility] [place] Please advise. documented in this encounter Plan of Treatment DateTypeDepartmentCare Team (Latest Contact Info)Hkyhydsbxjb68/07/2025 9:15 AM ESTConsult [facility] [address] [place] [phone] Samuel Taveras MD [address] [place] [address] 08/23/2025 10:30 AM ESTOffice Visit [facility] [address] [place] [address] Munira Freedman NP [address] [place] [address] 09/04/2025 8:40 AM ESTOffice Visit [facility] [address] [place] [address] Dg Galo DO [address] [place] [address] documented as of this encounter Visit Diagnoses Not on filedocumented in this encounter Additional Health Concerns AssessmentNoted TimePHQ-9 Depression Total Score: 8:11 AM EDT documented as of this encounter Care Teams Team MemberRelationshipSpecialtyStart DateEnd Date Dg Galo DO [address] [place] [address] PCP - GeneralFamily Qqjajdde56/21/25documented as of this encounter
--- OUTSIDE RECORDS SUMMARY | 2025-07-28 17:02 | XMS_ITS | Encounter Summary ---
Author Organization [facility] Address [address] [place] [address] Care Team Providers Care Preflight Inspector Name Role Phone Dg Galo DO Primary Care Provider + [phone] Encounter Details DateTypeDepartmentCare Team (Latest Contact Info)Xagdwhkrunj45/22/2025Travel Social History Tobacco UseTypesPacks/DayYears UsedDateSmoking Tobacco: Every DayCigarettes Smokeless Tobacco: NeverAlcohol UseStandard Drinks/WeekCommentsNever0 (1 standard drink = 0.6 oz pure alcohol)Caffeine intake : chocolatePHQ-2AnswerDate RecordedPatient Health Questionnaire-2 [id number] and Gender InformationValueDate RecordedSex Assigned at BirthNot [...] 8:11 AM Isabelle Godfrey MAPatient Health Questionnaire-2 Toocb292 8:11 AM Isabelle Godfrey MA * QuestionAnswerDate [...] AM Isabelle Godfrey MA Patient Health Questionnaire-9 Qanqk645207/26/2025 8:11 AM Isabelle Godfrey MA * If you checked off any problems on this questionnaire,QuestionAnswerDate of AssessmentAuthorHow difficult have these problems made it for you to do your work, take care of things at home, or get along with other people?Extremely gvdxiabqn56/22/2025 8:11 AM Isabelle Godfrey MA documented as of this encounter Plan of Treatment DateTypeDepartmentCare Team (Latest Contact Info)Naamntppzmt11/07/2025 9:15 AM ESTConsult [facility] [address] [facility] [address] [place] [address] Samuel Taveras MD 7[address] [facility] [address] [place] [address] 08/23/2025 10:30 AM ESTOffice Visit [facility] [place] [facility] [address] [facility] [address] [place] [address] Munira Freedman NP [address] [facility] 110 [place] [address] 09/04/2025 8:40 AM ESTOffice Visit [facility] [address] [place] [address] Dg Galo DO [address] [facility] 230 [place] [address] documented as of this encounter Visit Diagnoses Not on filedocumented in this encounter Additional Health Concerns AssessmentNoted TimePHQ-9 Depression Total Score: 8:11 AM EDT documented as of this encounter Care Teams Team MemberRelationshipSpecialtyStart DateEnd Dg Galo DO [address] [facility] [address] [place] [address] PCP - GeneralFamily Dtecaszy43/21/25documented as of this encounter
--- OUTSIDE RECORDS SUMMARY | 2025-07-28 17:02 | XMS_ITS | Clinical Summary ---
Author Organization [facility] Address [address] [place], [place] [id number] Care Team Providers Care Furnace Combustion Analyst Name Role Phone Unavailable Primary Care Provider Unavailabl e Allergies Active AllergyReactionsCriticalityNoted DateCommentsPenicillinsSwelling 12/06/2009 localized to the site of injection Medications MedicationSigDispense QuantityRefillsLast FilledStart DateEnd DateStatus sertraline hcl(ZOLOFT 100 MG TAB) two tablets [id number] OLANZAPINE 15 MG TAB Take one(1) tablet daily.ctive fludrocortisone acetate(FLORINEF 0.1 MG TAB) Indications:Orthostatic hypotensionTake one tablet a day for 2 days, then take 1/2 tablet once a day for 10 days, then take 1/2 tabletevery other day. 13 ctive potassium chloride(KLOR-CON 8 MEQ TAB) Indications:HypokalemiaTake one tablet daily. 30 ctive Active Problems ProblemNoted DateDiagnosed DateOrthostatic duspztjbgba98/13/2010Dizziness and bhgzkwweo37/07/4256Vkegskstunp77/07/7163Nfjixeh61/07/2010Depressive disorder 12/09/2009ipolar ydjbbryt66/07/3317Ljavksjdlgtq94/07/2010ipolar 2 disorder 12/06/2009 Overview (12/06/2009): 2003 Csizxjr4912/06/2009ETOH abuse12/06/2009 Overview (12/06/2009): denies since 2005 Drug abuse12/06/2009 Overview (12/06/2009): denies since 2005 Social History Tobacco UseTypesPacks/DayYears UsedDateSmoking Tobacco: Every VfzMzioryxxbp417 Comments:smokes marajuana 1- 2 times a month Alcohol UseStandard Drinks/WeekCommentsNo0 (1 standard drink = 0.6 oz pure alcohol)quit 2005, used to drink 3 beers dailySex and Gender InformationValue Date RecordedSex Assigned at BirthNot on fileLegal LumJgsq72/02/2012 8:27 AM EST Gender IdentityNot on fileSexual OrientationNot on file Last Filed Vital Signs Vital SignReadingTime TakenCommentsBlood Pressure--Pulse--Temperature-- Respiratory Rate--Oxygen Saturation--Inhaled Oxygen Concentration--Yubxmn33.3 kg (168 lb 4.8 oz)12/06/2009 12:23 PM GTKQdlbhe945.3 cm (5' 9 )12/06/2009 12:23 PM ESTBody Mass Index24.85012/06/2009 12:23 PM EST Plan of Treatment Health MaintenanceDue DateLast DoneCommentsAnxiety Ydwymefsm05/12/1985Depression Xkbqcumlx04/12/1985HIV Slwmjejis62/12/1985Hepatitis C Cwhabpkcw10/12/1985 DTaP,Tdap,Td Vaccine (1 - Tdap)1985Hepatitis B Vaccine (1 of 3 - 19+ 3- dose series)1985Lipid Jzerfbdnt32/12/2002CT Qlensxgimpfn78/12/2012 Cologuard (FIT-DNA)10/16/20111113Yseqejczcph63/12/2012Colorectal Cancer Screening 2011Diabetes Ihpphjdkx93/12/2012Fecal Occult Blood2011Prostate Cancer Screening Xmvmsqsdxk64/12/8658Nvxyuojaalirn86/12/2012Pneumococcal Vaccine: 50+ (1 of 1 - PCV)2016Shingrix Vaccine (1 of 2)2016Covid-19 Vaccine (1 - 2024-26 season)2025Influenza Vaccine (#1)2025
--- OUTSIDE RECORDS SUMMARY | 2025-07-28 17:02 | XMS_ITS | Encounter Summary ---
Author Organization [facility] Address [address] [place] [address] Care Team Providers Care Cash Processor Name Role Phone Dg Galo DO Primary Care Provider [phone] Encounter Details DateTypeDepartmentCare Team (Latest Contact Info)Iwaugpmocua82/24/2025Results Follow-Up [facility] [address] [place] [phone] Dg Galo DO [address] [facility] [address] [place] [address] CBC and differential, Comprehensive metabolic panel, Lipid panel, Additional followed-up results: 4 Social History Tobacco UseTypesPacks/DayYears UsedDateSmoking Tobacco: Every DayCigarettes Smokeless Tobacco: NeverAlcohol UseStandard Drinks/WeekCommentsNever0 (1 standard drink = 0.6 oz pure alcohol)Caffeine intake : chocolatePHQ-2AnswerDate RecordedPatient Health Questionnaire-2 Pzmyb678Sex and Gender InformationValueDate RecordedSex Assigned at BirthNot on fileLegal SexMale 12/17/2022 6:37 PM EDTGender IdentityNot on fileSexual OrientationNot on file documented as of this encounter Miscellaneous Notes * Telephone Encounter - Isabelle Bunn MA - 07/28/2025 4:03 PM EDT Attempted to contact pt but he does not have a set up at this time. * Telephone Encounter - Isabelle Bnun MA - 07/28/2025 4:01 PM EDT ----- Message from Dr. Dg Galo sent at 07/28/2025 3:23 PM EDT ----- Let the patient know that I reviewed the labs below. They do not explain his weight loss. Await CT scans ----- Message ----- From: Interface, [facility] Lab Results In Sent: 07/28/2025 8:08 AM EDT To: Dg Galo DO documented in this encounter Plan of Treatment DateTypeDepartmentCare Team (Latest Contact Info)Bnfnhcbcips52/07/2025 9:15 AM ESTConsult [facility] [address] [facility] [address] [place] [address] Samuel Taveras MD [address] [facility] [address] [place], [place] [address] 08/23/2025 10:30 AM ESTOffice Visit [facility] [address] [place] [address] Munira Freedman NP [address] [place] [address] 09/04/2025 8:40 AM ESTOffice Visit [facility] [address] [place] [phone] Dg Galo DO [address] [place], [place] [phone] documented as of this encounter Visit Diagnoses Not on filedocumented in this encounter Additional Health Concerns AssessmentNoted TimePHQ-9 Depression Total Score: 8:11 AM EDT documented as of this encounter Care Teams Team MemberRelationshipSpecialtyStart DateEnd Date Dg Galo DO [address] [place] [address] PCP - GeneralFamily Fdvqxdfw25/21/25documented as of this encounter
--- OUTSIDE RECORDS SUMMARY | 2025-07-28 17:02 | XMS_ITS | CCD ---
Author Organization [facility] Care Team Providers Care Business Banking Sales Assistant Name Role Phone CARLOS ENRIQUE MAGUIRE Admitting Unavailable CARLOS ENRIQUE MAGUIRE Attending Unavailable CARLOS ENRIQUE MAGUIRE Primary Care Unavailable CARLOS ENRIQUE MAGUIRE Consulting Unavailable ANA BENSON Consulting Unavailable CARLOS ENRIQUE MAGUIRE Primary Care Unavailable QUENTIN ZHAO Admitting Unavailable QUENTIN ZHAO Attending Unavailable QUENTIN ZHAO Consulting Unavailable GUZMAN HAJI Consulting Unavailable AHMEDCODY Consulting Unavailable CARLOS ENRIQUE MAGUIRE Primary Care Unavailable SAM KOENIG Consulting Unavailable QUENTIN ZHAO Admitting Unavailable QUENTIN ZHAO Attending Unavailable QUENTIN ZHAO Consulting Unavailable PURA RUSSELL Consulting Unavailable Josephine Castillo Unavailable [phone] Carlos Enrique Maguire MD Unavailable Carlos Enrique Maguire MD Primary Care Provider [phone] Carlos Enrique Maguire MD Unavailable [phone] Carlos Enrique Maguire MD Primary Care Provider Carlos Enrique Maguire II Primary Care Provider Rebeca Dill APRN Attending Provider Jaqui Zeng APRN Attending Provider Anny Bhatti APRN Attending Provider Carlos Enrique Maguire MD Primary Care Provider Tonya Hare APRN Attending Provider Alexander Lopez MD Primary Care Provider MONICA ORTIZ Attending Unavailable CARLOS ENRIQUE MAGUIRE Referring Unavailable ALEXANDER LOPEZ Primary Care Unavailable RAUDEL CROWLEY Primary Care Unavailable GABI OMALLEY Attending Unavailable CARLOS ENRIQUE MAGUIRE Primary Care Unavailable MAGUIRE, CARLOS ENRIQUE B [...] MAGUIRE, CARLOS ENRIQUE B Primary Care Unavailable AHSAN, HALEY M Referring Unavailable MAGUIRE, CARLOS ENRIQUE B Primary Care Unavailable PETTY, KOTA E Attending Unavailable PETTY, KOTA E Referring Unavailable MAGUIRE, CARLOS ENRIQUE B Primary Care Unavailable PETTY, KOTA E Admitting Unavailable PETTY, KOTA E Attending Unavailable MAGUIRE, CARLOS ENRIQUE B Referring Unavailable MAGUIRE, CARLOS ENRIQUE B Primary Care Unavailable NADERER, ALEXANDER Primary Care Unavailable NADERER, ALEXANDER Referring Unavailable NADERER, ALEXANDER Primary Care Unavailable VERHOFF, GABI N Attending Unavailable MAGUIRE, CARLOS ENRIQUE B Referring Unavailable NADERER, ALEXANDER Primary Care Unavailable Unallocated MD, Noms Provider Primary Care Provi alba Benjy Ackerman Attending Unavailab Benjy Hightower Admitting Unavailab le Maguire, Carlos Enrique Primary Care Unavailable Jean Pierre Galo DO Primary Care Provider MICHAEL KONG Attending Unavailable AHSAN, HALEY M Attending Unavailable HEMMER, DORIAN M Attending Unavailable AHSAN, HALEY M Attending Unavailable AHSAN, HALEY M Referring Unavailable AHSAN, HALEY M Referring Unavailable AHSAN, HALEY M Referring Unavailable HEMMER, DORIAN M Referring Unavailable AHSAN, HALEY M Attending Unavailable AHSAN, HALEY M Attending Unavailable AHSAN, HALEY M Attending Unavailable CUTLER JEAN PIERRE L Attending Unavailable CUTLERSUKHWINDERJEAN PIERRE L Referring Unavailable MICHAEL KONG Attending Unavailable Allergies Allergy ClassificationReported Allergen(s)Allergy TypeDate of OnsetReaction(s) Facility (7 sources)Penicillins; Translations: [PENICILLINS]Drug allergy (disorder) 62-35-3973EvamdkslAbhEast [facility] (1 source)PenicillinDrug AllergyUnknoAlbany Medical Center [facility] Other (20 sources)PenicillinsDrug Cpjqgbyokbd26-84-4808LrixerchJLVA Healthcare Work Phone: (14 sources)PenicillinsPropensity to adverse reactions to bfur74-10-4529Isriwaxn [facility] [employer] [facility] (1 source)PenicillinsDrug allergy (disorder)85-49-0192UwadodecfVeterans Health Administration Repository Medications Current Medications MedicationDrug Class(es)DatesSig (Normalized)Sig (Original)atorvastatin 20 mg oral tablet (20 sources)HMG-CoA Reductase InhibitorStart: 07-26-2025 End: 83-31-1063snvb 1 tablet by mouth once dailyatorvastatin (Lipitor) 20 MG tablet Indications: Mixed hyperlipidemia Take 1 tablet (20 mg) by mouth Daily 30 tablet 2 07/26/2025 10/24/2025 ActiveStart: 12-10-2023 End: 67-23-2786dhmt 1 tablet by mouth once dailyatorvastatin (Lipitor) 20 MG tablet Indications: Mixed hyperlipidemia Take 1 tablet (20 mg) by mouth Daily 30 tablet 2 11/09/2024 Activebacitracin zinc 0.5 unt/mg topical ointment (19 sources)Start: 50-93-6728oodtymnqvc zinc ointment Apply 1 Application topically in the morning and 1 Application before bedtime. 120 g 07/09/2025 ActiveStart: 33-83-2449fieskwoxhq 500 UNIT/GM ointment Indications: Abrasion Apply topically in the morning and before bedtime. 14 g 1 05/24/2025 Active baclofen 10 mg oral tablet (12 sources)gamma-Aminobutyric Acid-ergic AgonistStart: 05-31-2025 End: 79-49-1339eqvm 1 tablet by mouth twice daily as needed for muscle spasms baclofen (LIORESAL) 10 mg tablet Take 1 tablet (10 mg total) by mouth 2 (two) times a day as neededfor muscle spasms. 60 tablet 1 07/19/2025 Fxizwv93 hr buPROPion hydrochloride 150 mg extended release oral tablet (19 sources)AminoketoneStart: 09-29-2024 End: 44-03-0547fnrs 1 tablet by mouth every twenty-four hours in the morning buPROPion XL (Wellbutrin XL) 150 MG 24 hr tablet Indications: Reactive depression (situational) (CMS/HCC) Take 1 tablet (150 mg) by mouth in the morning. Do not crush, chew, or split.. 30 tablet 2 11/09/2024 02/28/2025 Discontinued (Ineffective)busPIRone hydrochloride 5 mg oral tablet (19 sources)Start: 11-09-2024 End: 72-99-3856uvdh 2 tablets by mouth in the morning, then take 2 tablets by mouth in the evening, then take 2 tablets by mouth at bedtimebusPIRone (Buspar) 5 MG tablet Indications: Reactive depression (situational) (CMS/HCC) Take 2 tablets (10 mg) by mouth in the morning and 2 tablets (10 mg) in the evening and 2 tablets (10 mg) before bedtime. 180 tablet 11/09/2024 02/28/2025 Discontinued (Ineffective)Start: 01-22-2024 End: 28-73-4074hchy 1 tablet by mouth in the morningbusPIRone (Buspar) 5 MG tablet Take 5 mg by mouth in the morning and 5 mg before bedtime. 01/22/2024 11/09/2024 Discontinued (Reorder)cephalexin 500 mg oral capsule (1 source)Cephalosporin AntibacterialStart: 66-06-8454wcci 1 capsule by mouth three times dailyCephalexin 500 mg capsule Active 500 MG PO Three times daily 24 04June 30, 2025 12:00am Complies with drug therapyclindamycin 300 mg oral capsule (1 source)Lincosamide AntibacterialStart: 03-93-9821jmqh 1 capsule by mouth every twelve hoursClindamycin HCl 300 MG 1 capsule Orally every 12 hrs for 7 days Jul, Activecyclobenzaprine hydrochloride 5 mg oral tablet (16 sources)Muscle RelaxantStart: 05-24-2025 End: 28-61-4832luzp 1 tablet by mouth three times daily as needed for muscle spasms, then take 2 tablets by mouth at bedtime as needed for muscle spasms cyclobenzaprine (Flexeril) 5 MG tablet Indications: Muscle spasm Take 1 tablet (5 mg) by mouth 3 (three) times a day as needed for muscle spasms May take 2 at bedtime 60 tablet 2 05/24/2025 01/19/2026 Activediclofenac sodium 75 mg delayed release oral tablet (20 sources)Nonsteroidal Anti-inflammatory DrugStart: 65-34-4857sjmrapmedm sodium (VOLTAREN) 1 % gel Apply 2 g topically in the morning and 2 g at noon and 2 g in the evening and 2 g before bedtime. 100 g 07/09/2025 ActiveStart: 09-24-2024 End: 82-21-4395zeyz 1 tablet by mouth in the morningdiclofenac (Voltaren) 75 MG EC tablet Indications: Severe back pain Take 1 tablet (75 mg) by mouth in the morning and 1 tablet (75 mg) before bedtime. 180 tablet 3 07/26/2025 07/26/2026 Activegabapentin 600 mg oral tablet (17 sources)Anti-epileptic AgentStart: 12-42-6472cill 1 tablet by mouth three times dailygabapentin (NEURONTIN) 600 mg tablet Indications: Thoracic spondylosis without myelopathy , Lumbar spondylosis Take 1 tablet (600 mg total) by mouth 3 (three) times a day. 90 tablet 1 07/19/2025 ActiveStart: 04-26-2025 End: 86-58-5653vcvy 1 capsule by mouth three times dailygabapentin (NEURONTIN) 300 mg capsule Indications: Thoracic spondylosis without myelopathy , Lumbar spondylosis Take 1 capsule (300 mg total) by mouth 3 (three) times a day. 90 capsule 1 05/23/2025 07/19/2025 Discontinued (Reorder)hydrOXYzine pamoate 50 mg oral capsule (1 source)AntihistamineStart: 48-14-4747ccrb 1 capsule by mouth every six hours as needed for anxiety and anxiety and anxietyhydrOXYzine pamoate (Vistaril) 50 MG capsule Indications: Anxiety Take 1 capsule (50 mg) by mouth every 6 (six) hours if needed for anxiety 90 capsule 11 07/26/2025 ActiveStart: 96-00-8296tuek 1 capsule by mouth every six hours as needed for anxiety and anxiety and anxietyhydrOXYzine pamoate (Vistaril) 50 MG capsule Indications: Anxiety Take 1 capsule (50 mg) by mouth every 6 (six) hours if needed for anxiety 90 capsule 11 07/26/2025 Activeibuprofen 600 mg oral tablet (6 sources)Nonsteroidal Anti-inflammatory DrugStart: 84-33-6539fopa 1 tablet by mouth every six hours as needed for painibuprofen (MOTRIN) 600 mg tablet Take 1 tablet (600 mg total) by mouth every 6 (six) hours as needed for pain. 30 tablet 07/09/2025 Activelevothyroxine sodium 0.1 mg oral tablet (20 sources)l-ThyroxineStart: 02-27-5700grba 1 tablet by mouth before mealtime levothyroxine (Synthroid, Levoxyl) 100 MCG tablet Indications: Hypothyroidism, unspecified Take 1 tablet (100 mcg) by mouth in the morning. Take before meals. 100 tablet 3 07/26/2025 ActiveStart: 12-10-2023 End: 14-31-9589bujq 1 tablet by mouth before mealtimelevothyroxine (Synthroid, Levoxyl) 100 MCG tablet Indications: Hypothyroidism, unspecified Take 1 tablet (100 mcg) by mouth in the morning. Take before meals. 100 tablet 3 11/09/2024 ActiveLevothyroxine Sodium 100 MCG Oral for 90 Days ActiveLORazepam 1 mg oral tablet (20 sources)BenzodiazepineStart: 06-13-2025 End: 72-46-7874Chidootqi 0.5 mg tablet Discontinued MG PO June 13, 2025 12:00am June 30, 2025 11:10amStart: 03-02-2025 End: 52-91-4514uore 1 tablet by mouth three times daily as needed for anxiety LORazepam (Ativan) 1 MG tablet Indications: Anxiety Take 1 tablet (1 mg) by mouth 3 (three) times aday as needed for anxiety for up to 10 days 30 tablet 06/26/2025 ActiveStart: 02-28-2025 End: 42-85-7164ijhd 1 tablet by mouth three times daily as needed for anxiety LORazepam (Ativan) 1 MG tablet Indications: Anxiety Take 1 tablet (1 mg) by mouth 3 (three) times aday as needed for anxiety 30 tablet 02/28/2025 02/28/2025 Discontinued (Ineffective)Start: 11-29-2024 End: 17-56-4332mejt 1 tablet by mouth twice daily as needed for anxietyLORazepam (ATIVAN) 0.5 mg tablet Take 1 tablet (0.5 mg total) by mouth 2 (two) times a day as needed for anxiety. 02/23/2025 ActiveStart: 08-08-2024 End: 78-28-0587kyxn 1 tablet by mouth every twenty-four hours as needed for anxiety and anxiety and anxietyLORazepam (Ativan) 0.5 MG tablet Indications: Anxiety Take 1 tablet (0.5 mg) by mouth Daily as needed for anxiety 30 tablet 2 11/09/2024 02/07/2025 Activemeloxicam 15 mg oral tablet (18 sources)Nonsteroidal Anti-inflammatory DrugStart: 03-15-2025 End: 44-98-7248aiop 1 tablet by mouth in the morningmeloxicam (MOBIC) 15 mg tablet Take 1 tablet (15 mg total) by mouth in the morning. 30 tablet 1 07/05 Activemirtazapine 30 mg oral tablet (20 sources)Start: 01-22-2024 End: 37-81-3194dodt 1 tablet by mouth at bedtimemirtazapine (Remeron) 30 MG tablet Indications: Reactive depression (situational) Take 1 tablet (30mg) by mouth at bedtime 30 tablet 2 11/09/2024 ActiveMirtazapine 30 MG Oral for 67 Days Activemupirocin 0.02 mg/mg topical ointment (6 sources)RNA Synthetase Inhibitor AntibacterialStart: 38-68-1427Rzobtdurw 2 % ointment Active 1 APPLIC TOPICAL Three times daily 26 07June 30, 2025 12:00amComplies with drug therapyStart: 06-15-2025 End: 22-44-9385cclkmshoq (Bactroban) 2 % cream Indications: Skin infection Apply topically in the morning and in the evening and before bedtime. Do all this for 10 days. 15 g 06/15/2025 06/25/2025 Activeondansetron 4 mg disintegrating oral tablet (4 sources)Serotonin-3 Receptor AntagonistStart: 05-24-2025 End: 96-94-7625oecb 1 tablet by mouth every eight hours for nauseaondansetron ODT (Zofran-ODT) 4 MG disintegrating tablet Indications: Nausea and vomiting, unspecified vomiting type Take 1 tablet (4 mg) by mouth every 8 (eight) hours if needed for nausea or vomiting for up to 7 days 21 tablet 05/24/2025 05/31/2025 ActiveStart: 02-06-2025 End: 18-28-4527lklk 1 tablet by mouth every eight hours for nauseaondansetron ODT (Zofran-ODT) 4 MG disintegrating tablet Indications: Nausea and vomiting, unspecified vomiting type Take 1 tablet (4 mg) by mouth every 8 (eight) hours if needed for nausea or vomiting for up to 7 days 21 tablet 02/06/2025 02/13/2025 Wbhmyf39 hr orphenadrine citrate 100 mg extended release oral tablet (20 sources)Muscle RelaxantStart: 12-16-2024 End: 11-44-6318ompi 1 tablet by mouth twice daily as needed for muscle spasms orphenadrine (Norflex) 100 MG 12 hr tablet Indications: Muscle spasm Take 1 tablet (100 mg) by mouth 2 (two) times a day as needed for muscle spasms Do not crush, chew, or split. 60 tablet 1 02/28/2025 05/24/2025 Discontinued (Ineffective)Start: 09-24-2024 End: 47-88-6022vbby 1 tablet by mouth twice daily as needed for muscle spasms orphenadrine (Norflex) 100 MG 12 hr tablet Indications: Muscle spasm Take 1 tablet (100 mg) by mouth 2 (two) times a day as needed for muscle spasms Do not crush, chew, or split. 60 tablet 1 09/29/2024 11/09/2024 Discontinued (Cost of medication)pantoprazole 40 mg delayed release oral tablet (16 sources)Proton Pump InhibitorStart: 05-24-2025 End: 15-31-9333uvzn 1 tablet by mouth once dailypantoprazole (ProtoNix) 40 MG EC tablet Indications: Gastroesophageal reflux disease with esophagitis without hemorrhage Take 1 tablet (40 mg) by mouth Daily Do not crush, chew, or split. 90 tablet 07/26/2026 ActivepredniSONE 10 mg oral tablet (7 sources)Start: 06-15-2025 End: 78-10-3876ihwo 4 tablets by mouth in the morningpredniSONE (DELTASONE) 10 mg tablet Take by mouth in the morning. 40 mg taper as directed . 06/15/2025 07/01/2025 Activesertraline 100 mg oral tablet (20 sources)Serotonin Reuptake InhibitorStart: 07-26-2025 End: 71-34-5170mdpr 2 tablets by mouth at bedtimesertraline (Zoloft) 100 MG tablet Indications: Reactive depression (situational) Take 2 tablets (200 mg) by mouth at bedtime 60 tablet 2 07/26/2025 10/24/2025 ActiveStart: 05-17-2025 Sertraline 100 mg tablet Active 100 MG PO May 17, 2025 12:00am Complies with drug therapyStart: 11-09-2024 End: 26-11-5180ldbe 2 tablets by mouth at bedtimesertraline (Zoloft) 100 MG tablet Indications: Reactive depression (situational) Take 2 tablets (200 mg) by mouth at bedtime 60 tablet 2 02/28/2025 Activesod sulf-pot chloride-mag sulf 1.479-0.188- 0.225 gram tablet (7 sources)Start: 33-11-6394vcw sulf-pot chloride-mag sulf 1.479-0.188- 0.225 gram tablet Indications: Weight loss , Nausea andvomiting, unspecified vomiting type Please see instructional sheet given by physicians office. 24 tablet 07/11/2025 ActiveStart: 07-11-2025 End: 47-09-9080wps sulf-pot chloride-mag sulf 1.479-0.188- 0.225 gram tablet Indications: Weight loss , Nausea andvomiting, unspecified vomiting type Please see instructional sheet given by physicians office. 24 tablet 07/11/2025 07/11/2025 Discontinuedsucralfate 1000 mg oral tablet (18 sources)Aluminum ComplexStart: 16-31-5552syvk 1 tablet by mouth three times daily as needed for gastroesophageal reflux diseasesucralfate (Carafate) 1 g tablet Indications: Gastric pain , Nausea and vomiting, unspecified vomiting type Take 1 tablet (1 g) by mouth 3 (three) times a day as needed (reflux) 120 tablet 3 07/26/2025 ActiveStart: 57-46-7521Iskynlqxwg 1 gram tablet Active PO June 30, 2025 12:00am Complies with drug therapyStart: 06-15-2025 End: 90-58-9879vqic 1 tablet by mouth before mealtimesucralfate (Carafate) 1 g tablet Indications: Gastric pain , Nausea and vomiting, unspecified vomiting type Take 1 tablet (1 g) by mouth in the morning and 1 tablet (1 g) in the evening. Take before meals. 60 tablet 11 06/15/2025 06/15/2026 ActivetraMADol hydrochloride 50 mg oral tablet (20 sources)Opioid AgonistStart: 05-17-2025 End: 67-45-7002fmel 1 tablet by mouth every six hours for paintraMADol (Ultram) 50 MG tablet Indications: Severe back pain Take 1 tablet (50 mg) by mouth every 6(six) hours if needed for severe pain for up to 7 days 28 tablet 05/22/2025 ActiveStart: 03-02-2025 End: 97-05-4857udxr 2 tablets by mouth every six hours as neededtraMADoL (ULTRAM) 50 mg tablet Take 2 tablets (100 mg total) by mouth every 6 (six) hours as needed. 03/02/2025 ActiveStart: 02-28-2025 End: 25-04-6863lmah 2 tablets by mouth every six hours for paintraMADol (Ultram) 50 MG tablet Indications: Severe back pain Take 2 tablets (100 mg) by mouth every6 (six) hours if needed for severe pain 28 tablet 02/28/2025 02/28/2025 Discontinued (Ineffective)Start: 02-23-2025 End: 88-70-9497dfkx 1 tablet by mouth every six hours for paintraMADol (Ultram) 50 MG tablet Indications: Severe back pain Take 1 tablet (50 mg) by mouth every 6(six) hours if needed for severe pain 28 tablet 02/23/2025 02/28/2025 Discontinued (Reorder)Start: 01-10-2025 End: 53-84-8473wcrr 1 tablet by mouth every six hours for paintraMADol (Ultram) 50 MG tablet Indications: Severe back pain Take 1 tablet (50 mg) by mouth every 6(six) hours if needed for severe pain 28 tablet 01/26/2025 ActiveStart: 11-29-2024 End: 15-81-4480udam 1 tablet by mouth every six hours for paintraMADol (Ultram) 50 MG tablet Indications: Severe back pain Take 1 tablet (50 mg) by mouth every 6(six) hours if needed for moderate pain or severe pain for up to 7 days 28 tablet 11/29/2024 12/06/2024 Activetriamcinolone acetonide 1 mg/ml topical cream (1 source)CorticosteroidStart: 78-62-3587hlnfwljmgqowb (Kenalog) 0.1 % cream Indications: Dermatitis Apply topically in the morning and before bedtime. 30 g 07/26/2025 ActiveStart: 80-17-5591llfwgayyblfal (Kenalog) 0.1 % cream Indications: Dermatitis Apply topically in the morning and before bedtime. 30 g 07/26/2025 Active Completed/Discontinued Medications MedicationDrug Class(es)DatesSig (Normalized)Sig (Original)ALPRAZolam 0.25 mg oral tablet (6 sources)BenzodiazepineStart: 09-29-2024 End: 98-20-0312noqm 1 tablet by mouth three times daily as needed for anxiety ALPRAZolam (Xanax) 0.25 MG tablet Indications: Situational mixed anxiety and depressive disorder (CMS/HCC) Take 1 tablet (0.25 mg) by mouth 3 (three) times a day as needed for anxiety for up to 10 days 30 tablet 09/29/2024 11/09/2024 Discontinued (Side effects)cariprazine 4.5 mg oral capsule (9 sources)Atypical AntipsychoticStart: 08-08-2024 End: 59-37-9232xwzu 1 capsule by mouth once dailyVraylar 4.5 MG capsule Take 1 capsule by mouth Daily 08/08/2024 11/09/2024 Discontinued (Cost of medication) End: 72-66-3498xvbj 1 capsule by mouth once dailyCariprazine HCl (Vraylar) 3 MG capsule Take 3 mg by mouth Daily 09/29/2024 Discontinued (Other)doxycycline hyclate 100 mg oral capsule (2 sources)Tetracycline-class DrugStart: 06-13-2025 End: 10-36-0275ncve 1 capsule by mouth twice dailyDoxycycline Hyclate 100 mg capsule Discontinued 100 MG PO Twice daily 20 10 June 13, 2025 12:00am June 30, 2025 11:09amOLANZapine 5 mg oral tablet (8 sources)Atypical AntipsychoticStart: 01-22-2024 End: 36-56-4060kjqq 1 tablet by mouth at bedtimeOLANZapine (ZyPREXA) 5 MG tablet Take 1 tablet by mouth at bedtime 01/22/2024 11/09/2024 Discontinued (Side effects)take 1 tablet by mouth once dailyOLANZapine 20 MG TAKE 1 TABLET BY MOUTH ONCE DAILY Oral for 67 Days Activesulfamethoxazole 800 mg / trimethoprim 160 mg oral tablet (4 sources)Dihydrofolate Reductase Inhibitor Antibacterial, Sulfonamide AntimicrobialStart: 05-17-2025 End: 13-49-6515ukjb 1 tablet by mouth every twelve hoursSulfamethoxazole- Trimethoprim (Bactrim Ds) 800-160 mg tablet Discontinued 1 TAB PO Every 12 hours May 17, 2025 12:00am June 06, 2025 9:03amtiZANidine 4 mg oral tablet (20 sources)Central alpha-2 Adrenergic AgonistStart: 12-19-2024 End: 63-43-1444cstm 1 tablet by mouth every eight hours as neededtiZANidine (ZANAFLEX) 4 mg tablet Take 1 tablet (4 mg total) by mouth every 8 (eight) hours as needed for muscle spasms. TAKE 1 TABLET(4 MG) BY MOUTH EVERY 8 HOURS NEEDED FOR MUSCLE SPASMS 12/19/2024 07/19/2025 Discontinued (Alternate therapy) Start: 01-25-2024 End: 45-65-4289nfbd 1 tablet by mouth every eight hours for muscle spasms tiZANidine (Zanaflex) 4 MG tablet Indications: Acute strain of neck muscle, initial encounter Take 1 tablet (4 mg) by mouth every 8 (eight) hours if needed for muscle spasms 90 tablet 11/09/2024 12/09/2024 Active Problems Active Problems Problem ClassificationProblemDateDocumented DateEpisodic/ChronicAbdominal pain (10 sources)Unspecified abdominal pain; Translations: [Generalized abdominal pain]Onset: 170082-75-9134GhgtqtcvJkizigvqkd disorders (3 sources)Mixed anxiety and depressive disorder; Translations: [Adjustment disorder with mixed anxiety and depressed mood]79-06-9474XwgjjshRguhxzh-related disorders (20 sources)History of alcohol abuse; Translations: [Alcohol abuse, in remission]Onset: 12-06-2009 Resolved: 216777-08-0408WofyxbrTvyektt disorders (20 sources)Anxiety disorder, unspecified; Translations: [Anxiety disorder] Onset: 959563-01-3284WnbbljwXuxmpnx disorders (2 sources)Organic anxiety disorder; 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]92-75-8909AttfsqdnQpoztna obstructive pulmonary disease and bronchiectasis (1 source)Emphysema, unspecified; Translations: [EMPHYSEMA UNSPECIFIED]Onset: 51-83-0333MskqoozMzalcylxb of lipid metabolism (20 sources)Hyperlipidemia, unspecified; Translations: [Mixed hyperlipidemia] Onset: 236567-80-5718ByiiybwIrmbluxqo of lipid metabolism (1 source)Pure hypercholesterolemia, unspecified; Translations: [PURE HYPERCHOLESTEROLEMIA UNSPEC]Onset: 81-28-1178Qvgpazqdvp disorders (20 sources)Gastro-esophageal reflux disease without esophagitis; Translations: [Gastroesophageal reflux disease]Onset: 138258-69-2968SeqsvinYmfmnxcgs hypertension (4 sources)Hypertensive disorder; Translations: [Essential (primary) hypertension]76-79-9651GuvrgyhKhqgk and electrolyte disorders (2 sources)Hypokalemia; Translations: [Dehydration]Onset: 99-46-3787Bknnpmjy Heart valve disorders (5 sources)Heart murmur; Translations: [Cardiac murmur, unspecified]Onset: 345060-78-6985VjmtqkybUlgc disorders (20 sources)Bipolar disorder; Translations: [Bipolar disorder, unspecified] Onset: 037043-43-7088WwmqdbnCkbrml and vomiting (10 sources)Nausea and vomiting; Translations: [Nausea with vomiting, unspecified]Onset: 424963-44-8505LdpfrgpmPfctqrrovgp chest pain (4 sources)Chest pain, unspecified; Translations: [CHEST PAIN UNSPECIFIED]Onset: 38-89-8829FkypxyohStya wounds of extremities (2 sources)Puncture wound of left hand; Translations: [Puncture wound without foreign body of left hand, initial encounter]75-61-4152HddgukwaGqfv wounds of head; neck; and trunk (2 sources)Unspecified open wound of other part of head, initial encounter; Translations: [Facial laceration ]Onset: 98-51-8503GinvqwjjYkgxl aftercare (1 source)Other group home (current) drug therapy; Translations: [OTH ASSISTED CURRENT DRUG THERAPY]Onset: 29-40-7989OsirdpnuBzrik aftercare (2 sources)Post-discharge follow-up; Translations: [Encounter for follow-up examination after completed treatment for conditions other than malignant neoplasm]87-04-7201UubihtwaSrsjw connective tissue disease (6 sources)Spasm; Translations: [Other muscle spasm]66-22-5859QhjqxbdzZsmwt gastrointestinal disorders (20 sources)Chronic idiopathic constipation; Translations: [Chronic idiopathic constipation]Onset: 359329-92-0124KplrojiJynyl gastrointestinal disorders (4 sources)Dysphagia; Translations: [Dysphagia, unspecified]10-81-2392Clwhghvb Other injuries and conditions due to external causes (2 sources)Abrasion; Translations: [Other injury of unspecified body region, initial encounter]53-59-2997IfvwxvqlTnskp lower respiratory disease (2 sources)Rib pain; Translations: [Pleurodynia]84-74-4510SojnlcdjHnrxc lower respiratory disease (1 source)Cough; Translations: [Acute cough]68-08-3116WmitmugjJaavl lower respiratory disease (4 sources)Dyspnea; Translations: [Shortness of breath]62-27-8796MfbhezssSulcr lower respiratory disease (1 source)Shortness of breath; Translations: [Shortness of breath]Onset: 15-82-4018AasgybfiLcqcl nutritional; endocrine; and metabolic disorders (3 sources)Weight loss; Translations: [Abnormal weight loss]Onset: 07-11-2025 44-56-0249XfcohparBuyqo nutritional; endocrine; and metabolic disorders (7 sources)Weight decreased; Translations: [Abnormal weight loss]02-28-2025 EpisodicOther nutritional; endocrine; and metabolic disorders (1 source)Abnormal weight loss; Translations: [Abnormal weight loss]Onset: 93-22-2956BtfstzrjEuzpi screening for suspected conditions (not mental disorders or infectious disease) (4 sources)Patient encounter status; Translations: [Encounter for screening for malignant neoplasm of prostate]35-17-9313UfdndxaxNivjz skin disorders (2 sources)Folliculitis; Translations: [Follicular disorder, unspecified] 70-33-1245JvirxcrhOevb-; endo-; and myocarditis; cardiomyopathy (except that caused by tuberculosis or sexually transmitted disease) (2 sources)Pericardial effusion; Translations: [Pericardial effusion (HHS-HCC)] 67-77-8099UbkagjjbFjoxmwkr codes; unclassified (4 sources)Tobacco user; Translations: [Tobacco use]68-76-0583GrvgzitoInwutgixz and history of mental health and substance abuse codes (2 sources)Tobacco use and exposure - phbacty39-66-7911SpylrlrDtgwkfvzq and history of mental health and substance abuse codes (6 sources)Personal history of nicotine dependence; Translations: [Tobacco use and exposure - finding]95-18-7303PllihlrgQehk and subcutaneous tissue infections (10 sources)Impetigo; Translations: [Impetigo, unspecified]14-58-2012Gtrtrqad Spondylosis; intervertebral disc disorders; other back problems (20 sources)Degeneration of thoracic intervertebral disc; Translations: [Other intervertebral disc degeneration, thoracic region]Onset: ChronicSpondylosis; intervertebral disc disorders; other back problems (20 sources)Backache; Translations: [Dorsalgia, unspecified]Onset: 03-15-2025 49-72-7654IavztltqFeksabd and strains (2 sources)Strain of neck muscle; Translations: [Strain of muscle, fascia and tendon at neck level, initial encounter]50-61-3158MymlegszQklqlaipb-related disorders (20 sources)Nicotine dependence, cigarettes, uncomplicated; Translations: [History of drug abuse]Onset: 12-06-2009 Resolved: 307101-97-5691HqstxtaZkvqcbalnjp injury; contusion (1 source)Blister (nonthermal) of oral cavity, initial encounterEpisodicThyroid disorders (20 sources)Hypothyroidism; Translations: [Hypothyroidism, unspecified]Onset: 881625-62-0531NmxdcjnPvamioydrbcm (6 sources)Autogenerated ProblemOnset: 218145-69-7888Yojvgxxdjiga (1 source)Anxiety, Med RefillOnset: 11-28-2024 Past or Other Problems Problem ClassificationProblemDateDocumented DateEpisodic/ChronicCardiac dysrhythmias (20 sources)Palpitations; Translations: [Palpitations]Onset: 12-09-2009 63-17-9496TpggpditBdfkwtckdh associated with dizziness or vertigo (20 sources)Dizziness and giddiness; Translations: [Dizziness and giddiness] Onset: 542061-76-2994BzjtdpivKtpcabcw; convulsions (20 sources)Seizure; Translations: [Unspecified convulsions]Onset: 07-01-2023 12-01-9662RtdhgweyLngcjhdaqvs (20 sources)Bleeding external hemorrhoids; Translations: [Residual hemorrhoidal skin tags]Onset: 373899-08-8272BddpbodqDihu disorders (20 sources)Mood disordersOnset: 12-09-2023 Resolved: 487294-62-0215Uubozlkzobi deficiencies (20 sources)Vitamin B deficiency; Translations: [Deficiency of other specified B group vitamins]Onset: 100907-57-1720TtuwzjrvWxtlg circulatory disease (20 sources)Orthostatic hypotension; Translations: [Orthostatic hypotension] Onset: 366888-02-5273GaaxpyskJknpt nutritional; endocrine; and metabolic disorders (1 source)Anorexia; Translations: [ANOREXIA]Onset: 86-32-4594AcliqfzuWlvlv nutritional; endocrine; and metabolic disorders (20 sources)Loss of appetite; Translations: [Anorexia]Onset: 07-01-2023 45-08-4812WfqvxmcdFfgja skin disorders (20 sources)Excessive sweating; Translations: [Generalized hyperhidrosis]Onset: 12-09-2009 Resolved: 807107-65-3602SxenpyuvXuvvilzf codes; unclassified (1 source)Pain, unspecified; Translations: [Pain, unspecified]Onset: 03-02-2025 EpisodicUnclassified (2 sources)Patient encounter jvohra16-43-7316 Results Test NameValueInterpretationReference RangeFacilityXR RIBS 3 VIEWS BILATERAL WITH CHEST POSTEROANTERIORon 60-28-7108ZJ RIBS 3 VIEWS BILATERAL WITH CHEST POSTEROANTERIORXR RIBS 3 VIEWS BILATERAL WITH CHEST POSTEROANTERIOR [...] electronically signed and approved by the interpreting Radiologist.NormalNot AvailableCT LUNG SCREENING LOW DOSEon 03-35-5205EO LUNG SCREENING LOW DOSEThis is a summary report. The complete report is available in the patient's medical record. If you cannot access the medical record, please contact the sending organization for a detailed fax or copy. LOW DOSE CT IMAGING OF THE CHEST WITHOUT INTRAVENOUS CONTRAST MEDIUM. HISTORY: Tobacco use. TECHNICAL FACTORS: Without IV contrast axial helical 1.25mm slice thickness low dose images of the chest performed forlung cancer screening. Findings: No suspicious nodule, mass or parenchymal consolidation. Moderate subpleural bullous formation bothupper lobes/apices. No significant hilar or mediastinal lymphadenopathy. [...] TRANSCRIBED BY: ELECTRONICALLY SIGNED BY: Aaron Edwards MDNormalNot AvailableCBC (H/H, RBC, INDICES, WBC, PLT)on 62-24-9941Vjaojgkcjoj distribution width (RBC) [Ratio]13.7 %Lexxpm35.0-15.0Quest DiagnosticsComment on above:Performed By: #### 927, 866, 56519, 85957, 5363, 1759, 7600 #### [facility] of [address], [address] [place] [address] Mobility Specialist: Brian Alvares MDHematocrit (Bld) [Volume fraction]41.3 %Normal 38.5-50.0Quest DiagnosticsComment on above:Performed By: #### 927, 866, 31485, 22556, 5363, 1759, 7600 #### [facility] of [address], [address] [place] [address] Mobility Specialist: Brian Alvares MDHemoglobin (Bld) [Mass/Vol]12.8 g/dLLow 13.2-17.1Quest DiagnosticsComment on above:Performed By: #### 927, 866, 71747, 53213, 5363, 1759, 7600 #### [facility] [place] [address] Mobility Specialist: Brian Alvares MDMCH (RBC) [Entitic mass]28.7 qsXlpqgi70.0-33.0 [facility] DiagnosticsComment on above:Performed By: #### 927, 866, 49546, 50731, 5363, 1759, 7600 #### [facility] of [place] [address] Mobility Specialist: Brian Alavres MDMCHC (RBC) [Mass/Vol]31.0 g/dLLow32.0-36.0 Quest DiagnosticsComment on above:Result Comment: For adults, a slight decrease in the calculated MCHC value (in the range of 30 to 32 g/dL) is most likely not clinically significant; however, it should be interpreted with caution in correlation with other red cell parameters and the patient's clinical condition.Performed By: #### 927, 866, 00277, 41622, 5363, 1759, 7600 #### [facility] [place] [address] Mobility Specialist: Brian Alvares MDMCV (RBC) [Entitic vol]92.6 jDRgejds65.0-100.0 [facility] DiagnosticsComment on above:Performed By: #### 927, 866, 78805, 23799, 5363, 1759, 7600 #### [facility] of [place] [address], [address] [place], [place] [id number] Mobility Specialist: Brian Alvares MDPlatelet mean volume (Bld) [Entitic vol]10.2 fLNormal7.5-12.5Quest DiagnosticsComment on above:Performed By: #### 927, 866, 81919, 69419, 5363, 1759, 7600 #### [facility] of [address], [address] [place], [place] [address] Mobility Specialist: Brian Alvares MDPlatelets (Bld) [#/Vol]326 10*3/uLNormal 140-400Quest DiagnosticsComment on above:Performed By: #### 927, 866, 62863, 96099, 5363, 1759, 7600 #### [facility] of [address], [address] [place] [address] Mobility Specialist: Brian Alvares MDRBC (Bld) [#/Vol]4.46 10*6/uLNormal4.20-5.80 [facility] DiagnosticsComment on above:Performed By: #### 927, 866, 00466, 12306, 5363, 1759, 7600 #### [facility] of [place] [address], [address] [place], [place] [phone] Mobility Specialist: Brian Alvares MDWBC (Bld) [#/Vol]9.0 10*3/uLNormal3.8-10.8 [facility] DiagnosticsComment on above:Performed By: #### 927, 866, 38834, 70571, 5363, 1759, 7600 #### [facility] of [address], [address] [place] [address] Mobility Specialist: Brian Alvares MDCOMPREHENSIVE METABOLIC PANELon 03-01-2025 Albumin [Mass/Vol]4.3 g/dLNormal3.6-5.1Quest DiagnosticsComment on above: Performed By: #### 927, 866, 32930, 58697, 5363, 1759, 7600 #### [facility] of [address], [address] [place] [address] Mobility Specialist: Brian Alvares MDAlbumin/Globulin [Mass ratio]1.7 {ratio}Normal 1.0-2.5Quest DiagnosticsComment on above:Performed By: #### 927, 866, 31330, 62630, 5363, 1759, 7600 #### [facility] of [place] [address] Mobility Specialist: Brian Alvares MDALP [Catalytic activity/Vol]83 U/ARfcsyn19-845 Quest DiagnosticsComment on above:Performed By: #### 927, 866, 19865, 38734, 5363, 1759, 7600 #### [facility] of [address], [address] [place] [address] Mobility Specialist: Brian Alvares MDALT [Catalytic activity/Vol]17 U/LNormal9-46 [facility] DiagnosticsComment on above:Performed By: #### 927, 866, 03356, 74131, 5363, 1759, 7600 #### [facility] of [place] [address] Mobility Specialist: Brian Alvares MDAST [Catalytic activity/Vol]18 U/QMxmidm54-45 [facility] DiagnosticsComment on above:Performed By: #### 927, 866, 33527, 38179, 5363, 1759, 7600 #### [facility] of [place] [address] Mobility Specialist: Brian Alvares MDBilirubin [Mass/Vol]0.3 mg/dLNormal0.2-1.2 [facility] DiagnosticsComment on above:Performed By: #### 927, 866, 91455, 27633, 5363, 1759, 7600 #### [facility] of [place] [address] Mobility Specialist: Brian Alvares MDBUN/CREATININE RATIOSEE NOTE:Normal6-22Quest DiagnosticsComment on above:Result Comment: Not Reported: BUN and Creatinine are within reference range.Performed By: #### 927, 866, 88151, 58302, 5363, 1759, 7600 #### [facility] of [address], [address] [place] [address] Mobility Specialist: Brian Alvares MDCalcium [Mass/Vol]9.1 mg/dLNormal8.6-10.3Quest DiagnosticsComment on above:Performed By: #### 927, 866, 15931, 78859, 5363, 1759, 7600 #### [facility] of [address], [address] [place] [address] Mobility Specialist: Brian Alvares MDChloride [Moles/Vol]104 mmol/FPsbyix59-401 Quest DiagnosticsComment on above:Performed By: #### 927, 866, 76572, 42605, 5363, 1759, 7600 #### [facility] of [place] [address] Mobility Specialist: Brian Alvares MDCO2 [Moles/Vol]30 mmol/QQrxuay00-11Nqzzp DiagnosticsComment on above:Performed By: #### 927, 866, 77630, 18021, 5363, 1759, 7600 #### [facility] of [place] [address] Mobility Specialist: Brian Alvares MDCreatinine [Mass/Vol]0.82 mg/dLNormal0.70-1.30 [facility] DiagnosticsComment on above:Performed By: #### 927, 866, 85089, 89893, 5363, 1759, 7600 #### [facility] of [place] [address] [place] [address] Mobility Specialist: Brian Alvares MDGFR/1.73 sq M.predicted among non-blacks MDRD (S/P/Bld) [Vol rate/Area]102 mL/min/{1.73_m2}Normal> OR = 60[facility] Comment on above:Performed By: #### 927, 866, 50343, 48913, 5363, 1759, 7600 #### [facility] [place] [address] Mobility Specialist: Brian Alvares MDGlobulin (S) [Mass/Vol]2.5 g/dLNormal1.9-3.7 [facility] DiagnosticsComment on above:Performed By: #### 927, 866, 50209, 37784, 5363, 175, 7600 #### [facility] [place] [address] Mobility Specialist: Brian Alvares MDGlucose [Mass/Vol]92 mg/oUCggzlo57-82Ldjfr DiagnosticsComment on above:Result Comment: Fasting reference intervalPerformed By: #### 927, 866, 49075, 32759, 5363, 1759, 7600 #### [facility] [place] [address] Mobility Specialist: Brian Alvares MDPotassium [Moles/Vol]4.7 mmol/LNormal3.5-5.3 [facility] DiagnosticsComment on above:Performed By: #### 927, 866, 19321, 46226, 5363, 1759, 7600 #### [facility] [place] [address] Mobility Specialist: Brian Alvares MDProtein [Mass/Vol]6.8 g/dLNormal6.1-8.1Quest DiagnosticsComment on above:Performed By: #### 927, 866, 19907, 36919, 5363, 1759, 7600 #### [facility] [address] [address] Mobility Specialist: Brian Alvares MDSodium [Moles/Vol]141 mmol/NDjyiad069-485Gpyhl DiagnosticsComment on above:Performed By: #### 927, 866, 10674, 35214, 5363, 1759, 7600 #### [facility] [address], [address] [place] [address] Mobility Specialist: Brian Alvares MDUrea nitrogen [Mass/Vol]12 mg/dLNormal7-25 [facility] DiagnosticsComment on above:Performed By: #### 927, 866, 03148, 58268, 5363, 1759, 7600 #### [facility] [place] [address] Mobility Specialist: Brian Alvares MDLIPID PANEL, STANDARD 46-42-2648Hncqkjbtfns [Mass/Vol]142 mg/dLNormal<200Quest DiagnosticsComment on above:Order Comment: FASTING:YES FASTING: YESPerformed By: #### 927, 866, 71386, 30830, 5363, 1759, 7600 #### [facility] [place] [address] Mobility Specialist: Brian Alvares MDCholesterol in HDL [Mass/Vol]49 mg/dLNormal> OR = 40Quest DiagnosticsComment on above:Order Comment: FASTING:YES FASTING: YESPerformed By: #### 927, 866, 73099, 89670, 5363, 1759, 7600 #### [facility] [address], [address] [place] [address] Mobility Specialist: Brian Alvares MDCholesterol in LDL [Mass/Vol]74 mg/dLNormal [facility] DiagnosticsComment on above:Order Comment: FASTING:YES FASTING: YESResult Comment: Reference range: <100 Desirable range <100 mg/dL for primary prevention; <70 mg/dL for patients with CHD or diabetic patients with > or = 2 CHD risk factors. LDL-C is now calculated using the Aman-Robins calculation, which is a validated novel method providing better accuracy than the Friedewald equation in the estimation of LDL-C. Aman SS et al. CLARISA. 2013;310(19): 5013-1321 (http://education.[employer]/faq/UIE327)Performed By: #### 927, 866, 56639, 61592, 5363, 1759, 7600 #### [facility] [address], [address] [place] [address] Mobility Specialist: Brian MCCARTHYholesterol.total/Cholesterol in HDL [Mass ratio]2.9 {ratio}Normal<5.0Quest DiagnosticsComment on above:Order Comment: FASTING:YES FASTING: YESPerformed By: #### 927, 866, 08993, 46165, 5363, 1759, 7600 #### [facility] [address], [address] [place] [address] Mobility Specialist: Brian DE DIOS HDL STIMZUUUHTM86 mg/dL (calc)Normal<130 [facility] DiagnosticsComment on above:Order Comment: FASTING:YES FASTING: YESResult Comment: For patients with diabetes plus 1 major ASCVD risk factor, treating to a non-HDL-C goal of <100 mg/dL (LDL-C of <70 mg/dL) is considered a therapeutic option.Performed By: #### 927, 866, 02713, 80362, 5363, 1759, 7600 #### [facility] [place] [address] Mobility Specialist: Brian Alvares MDTriglyceride [Mass/Vol]111 mg/dLNormal<150 [facility] DiagnosticsComment on above:Order Comment: FASTING:YES FASTING: YESPerformed By: #### 927, 866, 32753, 42906, 5363, 1759, 7600 #### [facility] [address], [address] [place] [address] Mobility Specialist: Brian Alvares MDPSA, TOTALon 83-79-5134RKG, TOTAL0.26 ng/mL Normal< OR = 4.00Quest DiagnosticsComment on above:Result Comment: The total PSA value from this [...] evidence of the presence or absence of disease.Performed By: #### 927, 866, 62274, 92203, 5363, 1759, 7600 #### [facility] [address], [address] [place] [address] Mobility Specialist: Brian Alvares MDT, FREE 23-25-1902Xfgr T4 [Mass/Vol]1.0 ng/dLNormal0.8-1.8Quest DiagnosticsComment on above:Performed By: #### 927, 866, 39336, 16104, 5363, 1759, 7600 #### [facility] [address], [address] [place] [address] Mobility Specialist: Brian Alvares MDTS W/REFLEX TO FT4on 90-43-1490LBD W/REFLEX TO FT45.15 mIU/LHigh0.40-4.50Quest DiagnosticsComment on above:Performed By: #### 927, 866, 07128, 17730, 5363, 1759, 7600 #### [facility] [address], [address] [place] [address] Mobility Specialist: Brian Alvares MDVITAMIN B12on 69-46-1107Okmefqrbx (Vitamin B12) [Mass/Vol]317 pg/nKYuaciw233-8639Ylwtq DiagnosticsComment on above:Result Comment: Please Note: Although the reference range for vitamin B12 is 200-1100 pg/mL, it has been reported that between 5 and 10% of patients with values between 200 and 400 pg/mL may experience neuropsychiatric and hematologic abnormalities due to occult B12 deficiency; less than 1% of patients with values above 400 pg/mL will have symptoms.Performed By: #### 927, 866, 34321, 59722, 5363, 1759, 7600 #### [facility] [address] [facility], [address] [place] [address] Mobility Specialist: Brian Alvares MDXR ABDOMEN 2 VIEWon 86-28-7583WT ABDOMEN 2 VIEWAbdomen CLINICAL HISTORY: Abdominal pain Supine and upright views of the abdomen. Normal bowel gas pattern. Retained stool in the distal colon. No apparent air- fluid level. There are clips in the right upper quadrant related to cholecystectomy. IMPRESSION: Distal colonic stool. No evidence for obstructionNormalNot AvailableXR LUMBAR SPINE 4+ VIEWS WITH FLEXION EXTENSIONon 72-65-1567XG LUMBAR SPINE 4+ VIEWS WITH FLEXION EXTENSIONExam: XR LUMBAR SPINE 4+ VIEWS WITH FLEXION [...] electronically signed and approved by the interpreting Radiologist.NormalNot AvailableCB AUTO DIFFon 35-39-8252Qzwvfseok (Bld) [#/Vol] 0.1 103/ulNormal0.0-0.1[facility] HospitalComment on above:Performed By: #### CBC #### [facility] [address] [place], [place] [address] Loc KarenBasophils/100 WBC (Bld)1.1 %Normal0.2-2.0The [facility] Comment on above:Performed By: #### CBC #### [facility] [address] [place], [place] [address] Loc KarenEosinophils (Bld) [#/Vol]0.2 103/ulNormal0.0-0.7The [facility] HospitalComment on above:Performed By: #### CBC #### [facility] [address] [place], [place] [address] Loc KarenEosinophils/100 WBC (Bld)2.2 %Normal0.9-7.0[facility] Comment on above:Performed By: #### CBC #### [facility] [address] [place] [address] Loc KarenErythrocyte distribution width (RBC) [Ratio]15.1 %Critically high 11.0-15.0The [facility] HospitalComment on above:Performed By: #### CBC #### [facility] [address] [place] [address] Loc KarenHematocrit (Bld) [Volume fraction]37.2 %Critically low42.0-54.0The [facility] HospitalComment on above:Performed By: #### CBC #### [facility] [address] [place] [address] Loc KarenHemoglobin (Bld) [Mass/Vol]12.4 g/dLCritically low14.0-18.0The [facility] HospitalComment on above:Performed By: #### CBC #### [facility] [address] [place] [address] Loc KarenIG #0.04 10e3/ulCritically high0.00-0.03The [facility] HospitalComment on above:Performed By: #### CBC #### [facility] [address] [place] [address] Loc KarenIG %0.4 %Normal0.0-0.5The [facility] HospitalComment on above: Performed By: #### CBC #### [facility] [address] [place] [address] Loc KarenLymphocytes (Bld) [#/Vol]2.9 103/ulNormal1.2-3.8The [facility] HospitalComment on above:Performed By: #### CBC #### [facility] [address] [place] [address] Loc KarenLymphocytes/100 WBC (Bld)31.6 %Gyyqsu05.5-60.0The [facility] Comment on above:Performed By: #### CBC #### [facility] [address] [place] [address] Loc KarenMANUAL DIFF REQNONormalThe [facility] HospitalComment on above: Performed By: #### CBC #### [facility] [address] [place] [address] Loc KarenMCH (RBC) [Entitic mass]27.0 xrTudznz18.9-34.0[facility] Comment on above:Performed By: #### CBC #### [facility] [address] [place] [address] Loc KarenMCHC (RBC) [Mass/Vol]33.3 g/zMGvdpgg67.9-35.2[facility] Comment on above:Performed By: #### CBC #### [facility] [address] [place] [address] Loc KarenMCV (RBC) [Entitic vol]81.0 wECrqvsn74.0-94.0[facility] Comment on above:Performed By: #### CBC #### [facility] [address] [place] [address] Loc KarenMonocytes (Bld) [#/Vol]0.6 103/ulNormal0.3-0.8ThWooster [facility] Comment on above:Performed By: #### CBC #### [facility] [address] [place] [address] Loc KarenMonocytes/100 WBC (Bld)7.0 %Normal1.7-12.0[facility] Comment on above:Performed By: #### CBC #### [facility] [address] [place] [address] Loc KarenNeutrophils (Bld) [#/Vol]5.3 103/ulNormal1.4-6.5The [facility] HospitalComment on above:Performed By: #### CBC #### [facility] [address] [place] [address] Loc KarenNeutrophils/100 WBC (Bld)57.7 %Vnsees60.0-75.0[facility] Comment on above:Performed By: #### CBC #### [facility] [address] [place] [address] Loc KarenPlatelet mean volume (Bld) [Entitic vol]9.7 fLNormal9.5-13.5The [facility] HospitalComment on above:Performed By: #### CBC #### [facility] [address] [place] [address] Loc KarenPlatelets (Bld) [#/Vol]241 103/uaHbvtlh715-326Sjp [facility] Comment on above:Performed By: #### CBC #### [facility] [address] [place] [address] Loc KarenRBC (Bld) [#/Vol]4.59 106/ulCritically low4.70-6.10The [facility] HospitalComment on above:Performed By: #### CBC #### [facility] [address] [place] [address] Loc KarenWBC (Bld) [#/Vol]9.2 103/ulNormal4.0-11.0The [facility] Comment on above:Performed By: #### CBC #### [facility] [address] [place] [address] Loc KarenCTA CHEST WO W CONon [id number] CHEST WO W CONEXAMINATION: CTA CHEST WO W CON HISTORY: Acute [...] mediastinal and bilateral hilar lymph nodes, likely reactive.NormalThe [facility]-DIMERon [id number]-DIMER COMMENTS SEE BELOWNormalThe Jordan HospitalComment on above:Result Comment: Increases in D-Dimer concentration observed with thromboembolic events can be variable due to localization, size, and age of the thrombus. Therefore, a thromboembolic event cannot be diagnosed with certainty on the basis of the reference range. D- Dimers may also be elevated for a variety of disorders including: advanced age, , coronary disease, cancer, liver disease, infection, inflammation, hematoma, DIC, trauma, post-surgery, diabetes, thrombolytic or anticoagulant the rapy, stress, and generalizd hospitalization.Performed By: #### DDIM ####[facility] [address] KarenFibrin D-dimer FEU IA (Bld) [Mass/Vol]0.71 ug/mLCritically high0.19-0.50The [facility] on above:Result Comment: test repeated, critical value verifiedPerformed By: #### DDIM ####[facility] [address] [place] [address] KarenPROF 14(COMP METB)on 42-76-0251Wyzffyx [Mass/Vol]3.6 g/dLNormal3.5-5.0The [facility] on above:Performed By: #### CMP, TROP ####[facility] [address] [place], [place] [address]Gerken KarenAlbumin/Globulin [Mass ratio]1.0 {ratio} NormalThe [facility] on above:Performed By: #### CMP, TROP ####[facility] [facility] Vqsmallpuh[address] [place], [place] [address]Gerken KarenALP [Catalytic activity/Vol]84 U/UGkfwif06-053Plm [facility] on above:Performed By: #### CMP, TROP ####[facility] Vbswlvsrys[address] [place], [place] [address]Gerken KarenALT [Catalytic activity/Vol]25 U/L Tygtjk77-16Omy [facility] on above:Performed By: #### CMP, TROP ####[facility] Cvlquvrjdi[address] [place], [place] [address]Gerken KarenAnion gap [Moles/Vol]17.1 mmol/LNormalThe [facility] HospitalComment on above:Performed By: #### CMP, TROP ####[facility] Acgiknjscp[address] KarenAST [Catalytic activity/Vol]19 U/L Zipwkq40-78Lij [facility] HospitalComment on above:Performed By: #### CMP, TROP ####[facility] Rktlpslqgr[address] [place], [place] [address]Gerken KarenBilirubin Ql (U)0.5 mg/dLNormal0.2-1.3The [facility] HospitalComment on above:Performed By: #### CMP, TROP ####[facility] Xqrelusoxm[address] [place], [place] [address]Gerken KarenCalcium [Mass/Vol]8.8 mg/dLNormal 8.4-10.2The [facility] HospitalComment on above:Performed By: #### CMP, TROP ####[facility] Ilngqojuib[address] [place], [place] [address]Gerken KarenChloride [Moles/Vol]104 mmol/QRyudst25-331Eob [facility] HospitalComment on above:Performed By: #### CMP, TROP ####[facility] Zxvallrvcq[address] [place], [place] [address]Gerken KarenCO2 [Moles/Vol]21.3 mmol/LCritically low22.0-30.0The [facility] HospitalComment on above:Performed By: #### CMP, TROP ####[facility] Zoowsdcera[address] [place], [place] [address]Gerken KarenCreatinine [Mass/Vol]1.02 mg/dLNormal0.66-1.25The [facility] HospitalComment on above:Performed By: #### CMP, TROP ####[facility] Malgqmnrll[address] [place], [place] [address]Gerken KarenEGFR-AF COLOMBIAN>60Normal>=60The [facility] HospitalComment on above:Performed By: #### CMP, TROP ####[facility] Ccjcikzycn[address] Main StreetB[place], [place] [address]Uoeblw KarenEGFR-NON AF COLOMBIAN>60Normal>=60The [facility] HospitalComment on above:Performed By: #### CMP, TROP ####[facility] Piisivddef[address] [place], [place] [address]Gerken KarenGlobulin (S) [Mass/Vol]3.6 g/dLNormalThe [facility] Comment on above:Performed By: #### CMP, TROP ####[facility] Qliujsccyd[address] [place], [place] [address]Gerken KarenGlucose [Mass/Vol]99 mg/tNOqymst01-184Pny [facility] HospitalComment on above:Performed By: #### CMP, TROP ####[facility] Xlhqwmprfz[address] [place], [place] [address]Gerken KarenPotassium [Moles/Vol]3.4 mmol/LNormal 3.4-5.0The [facility] HospitalComment on above:Performed By: #### CMP, TROP ####[facility] Tgpnsiatgl[address] [place], [place] [address]Gerken KarenProtein [Mass/Vol]7.2 g/dLNormal6.1-8.2The [facility] HospitalComment on above:Performed By: #### CMP, TROP ####[facility] Zlqywwgyfx[address] [place], [place] [address]Gerken KarenSodium [Moles/Vol]139 mmol/LNormal 137-145The [facility] HospitalComment on above:Performed By: #### CMP, TROP ####[facility] Lwgijklpjn[address] [place], [place] [address]Gerken KarenUrea nitrogen [Mass/Vol]19.0 mg/dLNormal9.0-20.0The [facility] Comment on above:Performed By: #### CMP, TROP ####[facility] Wrorbbumvx[address] [place], [place] [address]Gerken KarenUrea nitrogen/Creatinine [Mass ratio]18.6 mg/mgNormalThe [facility] HospitalComment on above:Performed By: #### CMP, TROP ####[facility] Prymirarur[address] [place] [address] KarenPROTIMEon [id number] Coag (PPP) [Relative time]1.05 {INR}NormalThe [facility] on above:Performed By: #### PT, PTT #### [facility] [address] [place], [place] [address] Loc KarenPT Coag (PPP) [Time]10.9 sNormal9.0-11.6The [facility] on above:Performed By: #### PT, PTT #### [facility] [address] [place] [phone] Loc KarenPT Coag (PPP) [Time]PLEASE NOTE: NORMAL RANGE CHANGE 06-22-2014 DUE TO [facility]AGENT [facility]ANGEKind[facility] on above:Performed By: #### PT, PTT #### [facility] [address] [place] [phone] Loc KarenPT Coag (PPP) [Time]SEE BELOWKindred Healthcare on above:Result Comment: DESIRED INR: 2.0 - 3.0 CONDITIONS NOT LISTED BELOW 2.5 - 3.5 FOR PROSTHETIC HEART VALVE REPLACEMENT 2.5 - 3.5 RECURRENT THROMBOSIS Performed By: #### PT, PTT #### [facility] [address] [place] [address] Loc LordPTTon [id number] Coag (Bld) [Time]24.8 xDluqyo86.3-36.2The [facility] on above:Performed By: #### PT, PTT ####[facility] [address] [place] [address]Gerken KarenaPTT Coag (Bld) [Time]PLEASE NOTE: NORMAL RANGE CHANGE 08-29-2015 DUE TO REAGENT [facility]ANGEKind[facility] on above:Performed By: #### PT, PTT ####[facility] [address] [place] [address]Gerken KarenTROPONIN - Ion 12-22-8722Vfibjqpr I.cardiac [Mass/Vol]SEE BELOWKindred Healthcare on above:Result Comment: <0.034 ng/ml NEGATIVE 0.034- 0.119 INDETERMINATE 0.120 AMI CUT OFFPerformed By: #### CMP, TROP ####[facility] X[address] [place] [address]Gerken KarenTroponin I.cardiac [Mass/Vol]ng/mLNormal<=0.034The [facility] HospitalComment on above: Performed By: #### CMP, TROP ####[facility] [address] [place] [address]Gerken KarenCBC AUTO DIFFon 88-00-0215Hbcmnnptq (Bld) [#/Vol]0.1 103/ulNormal0.0-0.1The [facility] HospitalComment on above:Performed By: #### CBC #### [facility] [address] [place] [address] Loc KarenBasophils/100 WBC (Bld)1.2 %Normal0.2-2.0The [facility] Comment on above:Performed By: #### CBC #### [facility] [address] [place] [address] Loc KarenEosinophils (Bld) [#/Vol]0.1 103/ulNormal0.0-0.7The [facility] HospitalComment on above:Performed By: #### CBC #### [facility] [address] [place] [address] Loc KarenEosinophils/100 WBC (Bld)1.1 %Normal0.9-7.0The [facility] Comment on above:Performed By: #### CBC #### [facility] [address] [place] [address] Loc KarenErythrocyte distribution width (RBC) [Ratio]14.8 %Sqlxdr43.0-15.0The [facility] HospitalComment on above:Performed By: #### CBC #### [facility] [address] [place] [address] Loc KarenHematocrit (Bld) [Volume fraction]42.7 %Pnbyga73.0-54.0The [facility] HospitalComment on above:Performed By: #### CBC #### [facility] [address] [place] [address] Loc KarenHemoglobin (Bld) [Mass/Vol]14.8 g/zRUznhga22.0-18.0The [facility] HospitalComment on above:Performed By: #### CBC #### [facility] [address] [place] [address] Loc KarenIG #0.05 10e3/ulCritically high0.00-0.03The [facility] HospitalComment on above:Performed By: #### CBC #### [facility] [address] [place] [address] Loc KarenIG %0.4 %Normal0.0-0.5The [facility] HospitalComment on above: Performed By: #### CBC #### [facility] [address] [place] [address] Loc KarenLymphocytes (Bld) [#/Vol]2.7 103/ulNormal1.2-3.8The [facility] HospitalComment on above:Performed By: #### CBC #### [facility] [address] [place] [address] Loc KarenLymphocytes/100 WBC (Bld)23.1 %Ubfwli88.5-60.0[facility] Comment on above:Performed By: #### CBC #### [facility] [address] [place] [address] Loc KarenMANUAL DIFF REQNONormalThe [facility] HospitalComment on above: Performed By: #### CBC #### [facility] [address] [place] [address] Loc KarenMCH (RBC) [Entitic mass]27.1 oiAkohai98.9-34.0The [facility] Comment on above:Performed By: #### CBC #### [facility] [address] [place] [address] Loc KarenMCHC (RBC) [Mass/Vol]34.7 g/lLXhfnhb03.9-35.2The [facility] Comment on above:Performed By: #### CBC #### [facility] [address] [place], [place] [address] Loc KarenMCV (RBC) [Entitic vol]78.2 fLCritically low80.0-94.0[facility]Comment on above:Performed By: #### CBC #### [facility] [address] [place] [address] Loc KarenMonocytes (Bld) [#/Vol]1.0 103/ulCritically high0.3-0.8The [facility] HospitalComment on above:Performed By: #### CBC #### [facility] [address] [place], [place] [address] Loc KarenMonocytes/100 WBC (Bld)8.4 %Normal1.7-12.0[facility] Comment on above:Performed By: #### CBC #### [facility] [address] [place] [address] Loc KarenNeutrophils (Bld) [#/Vol]7.6 103/ulCritically high1.4-6.5The [facility] HospitalComment on above:Performed By: #### CBC #### [facility] [address] [place] [address] Loc KarenNeutrophils/100 WBC (Bld)65.8 %Wkxqyr40.0-75.0[facility] Comment on above:Performed By: #### CBC #### [facility] [address] [place] [address] Loc KarenPlatelet mean volume (Bld) [Entitic vol]9.3 fLCritically low9.5-13.5 The [facility] HospitalComment on above:Performed By: #### CBC #### [facility] [address] [place] [address] Loc KarenPlatelets (Bld) [#/Vol]285 103/zjYncydw714-919JsoLicking Memorial Hospital Comment on above:Performed By: #### CBC #### [facility] [address] [place], [place] [address] Loc KarenRBC (Bld) [#/Vol]5.46 106/ulNormal4.70-6.10The [facility] Comment on above:Performed By: #### CBC #### [facility] [address] [place] [address] Loc KarenWBC (Bld) [#/Vol]11.6 103/ulCritically high4.0-11.0The [facility] HospitalComment on above:Performed By: #### CBC #### [facility] [address] [place] [address] Loc KarenPROF CHEM 8 (BAS METB)on 81-20-9177Pklqe gap [Moles/Vol]20.8 mmol/L NormalThe [facility] HospitalComment on above:Performed By: #### TROP, TSH, T4, BMP #### [facility] [address] [place] [address] Olc KarenCalcium [Mass/Vol]9.9 mg/dLNormal8.4-10.2[facility] Comment on above:Performed By: #### TROP, TSH, T4, BMP #### [facility] [address] [place] [address] Loc KarenChloride [Moles/Vol]102 mmol/OIatpay18-928Unj [facility] Comment on above:Performed By: #### TROP, TSH, T4, BMP #### [facility] [address] [place] [address] Loc KarenCO2 [Moles/Vol]18.4 mmol/LCritically low22.0-30.0The [facility] HospitalComment on above:Performed By: #### TROP, TSH, T4, BMP #### [facility] [address] [place] [address] Loc KarenCreatinine [Mass/Vol]1.50 mg/dLCritically high0.66-1.25The [facility] HospitalComment on above:Performed By: #### TROP, TSH, T4, BMP #### [facility] [address] [place] [address] Loc KarenEGFR-AF TFASLNBR77 mL/min/1.67r7Scqamjxpcy low>=60The [facility] on above:Performed By: #### TROP, TSH, T4, BMP #### [facility] [address] [place] [address] Loc KarenEGFR-NON AF IBUSHGUA65 mL/min/1.53l0Egfxnhbney low>=60The [facility] on above:Performed By: #### TROP, TSH, T4, BMP #### [facility] [address] [place] [address] Loc KarenGlucose [Mass/Vol]101 mg/lVKrtyfx11-186Qcu [facility] HospitalComment on above:Performed By: #### TROP, TSH, T4, BMP #### [facility] [address] [place] [address] Loc KarenPotassium [Moles/Vol]3.2 mmol/LCritically low3.4-5.0The [facility] on above:Performed By: #### TROP, TSH, T4, BMP #### [facility] [address] [place] [address] Loc KarenSodium [Moles/Vol]138 mmol/CGzpgsr666-751Myr [facility] Comment on above:Performed By: #### TROP, TSH, T4, BMP #### [facility] [address] [place] [address] Loc KarenUrea nitrogen [Mass/Vol]26.0 mg/dLCritically high9.0-20.0The [facility] on above:Performed By: #### TROP, TSH, T4, BMP #### [facility] [address] [place] [address] Loc KarenUrea nitrogen/Creatinine [Mass ratio]17.3 mg/mgNormalThe [facility] on above:Performed By: #### TROP, TSH, T4, BMP #### [facility] [address] [place] [address] Loc YfdcaT4nx 94-22-0938A7 [Mass/Vol]7.40 ug/dLNormal5.53-11.00The [facility] on above:Performed By: #### TROP, TSH, T4, BMP #### [facility] [address] [place] [address] Loc KarenTROPONIN - Ion 41-01-8614Yjlvscxz I.cardiac [Mass/Vol]ng/mLNormal <=0.034[facility] HospitalComment on above:Performed By: #### TROP, TSH, T4, BMP #### [facility] [address] [place] [address] KarenTroponin I.cardiac [Mass/Vol]SEE [facility] Comment on above:Result Comment: <0.034 ng/ml NEGATIVE 0.034-0.119 INDETERMINATE 0.120 AMI CUT OFFPerformed By: #### TROP, TSH, T4, BMP #### [facility] [address] [place] [address] KirbyenTSHon [id number] QnSEE BELOWDetwiler Memorial HospitalComment on above:Result Comment: <0.34 UIU/ml HYPERTHYROID 0.34-5.60 UIU/ml EUTHYROID >5.60 UIU/ml HYPOTHYROIDPerformed By: #### TROP, TSH, T4, BMP #### [facility] [address] [place] [address] Qn11.107 uIU/mLCritically high0.470-4.680[facility] Comment on above:Performed By: #### TROP, TSH, T4, BMP #### [facility] [address] [place] [address] KirbyenXR CHEST 2 Von 25-47-3872QI CHEST 2 VEXAM:XR CHEST 2 V 12/04/2019 INDICATION: SHORTNESS OF BREATH COMPARISON: None. TECHNIQUE: PA and lateral chest radiographs. FINDINGS: The cardiomediastinal contour is within normal limits. There is chronic bronchial wall thickening. No focal consolidative opacity. No pleural effusion. No acute abnormalities of the visualized osseous structures. IMPRESSION: Chronic bronchial wall thickening is likely related to sequela of COPD. No focal consolidative opacity.NormalThe [facility] HospitalXR CINERADIOGRAPHYon 36-14-6490UZ MLLSAMAFTNHKVRF5822 [place] [address] Patient: OLE STEPHENS Exam Date: 12/17/2018 : 1965 Gender:M Ordering : DR CARLOS ENRIQUE MAGUIRE M.D. Admission #: [id number] Family : Order #: [id number] CLICK HERE TO VIEW EXAM RADIOLOGY REPORT [...] No visible esophageal damage. Dictated by: Ana Benson M.D. on 12/17/2018 at 13:58 Approved by: Ana Benson M.D. on 12/17/2018 at 14:01[facility] HospitalXR UPPER GI W AIR KUBon [id number] UPPER GI W AIR IAJ3711 [place] [address] Patient: OLE STEPHENS Exam Date: 12/17/2018 : 1965 Gender:Sujey Ordering : DR CARLOS ENRIQUE MAGUIRE M.D. Admission #: [id number] Family : Order #: [id number] CLICK HERE TO VIEW EXAM RADIOLOGY REPORT [...] No visible esophageal damage. Dictated by: Ana Benson M.D. on 12/17/2018 at 13:58 Approved by: Ana Benson M.D. on 12/17/2018 at 14:01[facility] Vital Signs Date TimeVital SignValuePerforming GwwnjwourQmhwndeq23-85-4001 10:37-0400 Diastolic blood egvnotkb83 mm[Hg]Gabi Verhoff PA-C Work Phone: [facility] 10:37-0400Heart rate 66 /minMegan Verhoff PA-C Work Phone: [facility]-2025 10:37-0400 Respiratory rate18 /minMegan Verhoff PA-C Work Phone: [facility]-15-2025 10:37-4223FcB8% (BldA) [Mass fraction]100 %Gabi Verhoff PA-C Work Phone: [facility]-15-2025 10:37-0400Systolic blood zfyoreer812 mm[Hg]Gabi Verhoff PA-C Work Phone: [facility]-07-2025 08:55-0400Body uorhpz161.3 cmMonica Ortiz MANAGER VAN-PNEUMATIC TOOL REPAIRER Work Phone: [facility]-07-2025 08:55-0400Body mass index (BMI) [Ratio]16.86 kg/s3VyynzpwMonica Ortiz MANAGER VAN-PNEUMATIC TOOL REPAIRER Work Phone: [facility]-07-2025 08:55-0400Body qtvajk09.8 kgMonica Aguirreoll MANAGER VAN-PNEUMATIC TOOL REPAIRER Work Phone: [facility]10-07-2025 08:55-0400Diastolic blood vhdwupft35 mm[Hg]Monica Aguirreoll MANAGER VAN-PNEUMATIC TOOL REPAIRER Work Phone: [facility]10-07-2025 08:55-0400Heart rate 60 /minMonica Ortiz MANAGER VAN-PNEUMATIC TOOL REPAIRER Work Phone: [facility]10-07-2025 08:55-0400Systolic blood skbyrmzs790 mm[Hg]Monica Ortiz MANAGER VAN-PNEUMATIC TOOL REPAIRER Work Phone: [facility]09-26-2025 11:15-0400Body slhfiu167.26 cmDanancy Maguire II Work Phone: [phone]09-26-2025 11:15-0400 Body mass index (BMI) [Ratio]16.1 kg/j4Hnxnwe Maguire II Work Phone: [phone]09-26-2025 11:15-0400 Body rbbskhgkybc06.3 [degF]Carlos Enrique Maguire II Work Phone: [phone]09-26-2025 11:15-0400 Body leffbd51.49 kgDanancy Maguire II Work Phone: [phone])[address]09-26-2025 11:15-0400 Diastolic blood xfukibeg65 mm[Hg]Carlos Enrique Maguire II Work Phone: [phone])[address]09-26-2025 11:15-0400 Heart rate54 /minDtonyel Maguire II Work Phone: [phone])[address]09-26-2025 11:15-0400 Respiratory rate18 /minDtonyel Maguire II Work Phone: [phone] [place], [place] 4965409-26-2025 11:15-0400 SaO2% (BldA) [Mass fraction]99 %Carlos Enrique Maguire II Work Phone: [phone] [place], [place] 4965409-26-2025 11:15-0400 Systolic blood qvdgviyp553 mm[Hg]Carlos Enrique Maguire II Work Phone: [phone]09-17-2025 11:32-0400 Body fyybpt207.3 cmSherri Ahsan EDWARDS Work Phone: [facility] CareTmzymeezqb17-79-5442 11:32-0400Body mass index (BMI) [Ratio]16.69 kg/y1Rfqbac Ahsan CATALOG LIBRARIAN Work Phone: [facility] CareMobkhqmxnm78-26-5590 11:32-0400Body kacdtv43.26 kgSherri Ahsan CATALOG LIBRARIAN Work Phone: [facility] CareLzytoyqvjj36-28-8014 11:32-0400Diastolic blood wlhduwau17 mm[Hg]Haley Jemison CATALOG LIBRARIAN Work Phone: [phone] [place], [place] [address]Wszndkuzjc09-72-3453 11:32-0400Heart rate80 /min Haley Jemison CATALOG LIBRARIAN Work Phone: [phone] [place], [place] [address]Thfbjlnvgo32-32-8845 11:32-0400Respiratory rate16 /minSherri Ahsan CATALOG LIBRARIAN Work Phone: [phone])[facility]-[address] [place], [place] [address]Qsdwbkiftu76-07-2033 11:32-7923TpQ5% (BldA) [Mass fraction]98 %Haley Morrell CATALOG LIBRARIAN Work Phone: [phone])[facility]-[address] [place], [place] [address]Atzwqicnxs25-31-7998 11:32-0400Systolic blood emzhfqfj065 mm[Hg]Haley Jemison CATALOG LIBRARIAN Work Phone: 1(111)[facility]-[address] [place], [place] [address]Htkjxfrvhj89-89-8118 15:49-0400Body .3 cmSherri Jemison CATALOG LIBRARIAN Work Phone: [phone] [place], [place] [address]Ybypegepyi54-39-8179 15:49-0400Body mass index (BMI) [Ratio]16.83 kg/l6Nrpupg Ahsan CATALOG LIBRARIAN Work Phone: 1(507)[facility]-[address] [place], [place] [address]Zqkraekqws43-12-1284 15:49-0400Body cvomsa96.71 kgSherri Ahsan CATALOG LIBRARIAN Work Phone: [place] [address]Axotugkavs16-60-6503 15:49-0400Diastolic blood vbeleclx73 mm[Hg]Haley Morrell CATALOG LIBRARIAN Work Phone: 1(361)[facility]-[address] [place], [place] [address]Ilspzzjftf62-44-6334 15:49-0400Heart rate84 /min Haley Ahsan CATALOG LIBRARIAN Work Phone: 1([phone] [place], [place] [address]Hkffaxvatw57-57-4929 15:49-0400Respiratory rate17 /minSherri Jemison CATALOG LIBRARIAN Work Phone: [facility] CareOefohaosjm60-11-7988 15:49-9988VhX2% (BldA) [Mass fraction]96 %Haley Morrell CATALOG LIBRARIAN Work Phone: [facility] CareWeemtfifqw96-80-8590 15:49-0400Systolic blood uhsmjbex746 mm[Hg]Haley Morrell CATALOG LIBRARIAN Work Phone: [facility] CarePmyvetplvm65-53-9548 10:12-0400Body whaqbp640.26 cmDaanthonyel Maguire II Work Phone: [phone] [place], [place] 4965409-09-2025 10:12-0400 Body mass index (BMI) [Ratio]16.2 kg/c4Dfytdz Maguire II Work Phone: [phone])[address] [place], [place] 5222109-09-2025 10:12-0400 Body efishsrjhub54 [degF]Carlos Enrique Maguire II Work Phone: 1(204)[facility] [place], [place] 4965409-09-2025 10:12-0400 Body yanvkg95.95 kgDaanthonyel Maguire II Work Phone: [phone] [place], [place] 4965409-09-2025 10:12-0400 Diastolic blood ryweocxe42 mm[Hg]Carlos Enrique Maguire II Work Phone: 1([phone] [place], [place] 4965409-09-2025 10:12-0400 Heart rate75 /minDaniel Maguire II Work Phone: 1([phone] [place], [place] 4965409-09-2025 10:12-0400 Respiratory rate18 /minDaniel Maguire II Work Phone: [phone] [place], [place] 4965409-09-2025 10:12-0400 SaO2% (BldA) [Mass fraction]99 %Carlos Enrique Maguire II Work Phone: [phone] [place], [place] 4965409-09-2025 10:12-0400 Systolic blood eepicyem401 mm[Hg]Carlos Enrique Maguire II Work Phone: [phone]09-03-2025 12:55-0400 Body .3 cmMegan Verhoff PA-C Work Phone: [facility] ODIN Nbsgrd82-54-4991 12:55-0400Body mass index (BMI) [Ratio]15.8 kg/n2Bncnb Verhoff PA-C Work Phone: [facility] Gflixa28-20-7751 12:55-0400Body yldwit90.53 kgMegan Verhoff PA-C Work Phone: [facility]09-03-2025 12:55-0400Diastolic blood vsgudbhu15 mm[Hg]Gabi Verhoff PA-C Work Phone: [facility] [place] Pctvxs53-61-3360 12:55-0400Heart rate 100 /minMegan Verhoff PA-C Work Phone: [facility]09-03-2025 12:55-0400 Respiratory rate18 /minMegan Verhoff PA-C Work Phone: [facility]09-03-2025 12:55-1974KlU5% (BldA) [Mass fraction]100 %Gabi Verhoff PA-C Work Phone: [facility]09-03-2025 12:55-0400Systolic blood eigilsub662 mm[Hg]Gabi Verhoff PA-C Work Phone: [facility] [facility]09-02-2025 09:08-0400Body mziybd482.26 cmDanancy Maguire II Work Phone: [facility]09-02-2025 09:08-0400 Body mass index (BMI) [Ratio]16.7 kg/m1Pvtgut Maguire II Work Phone: [facility]09-02-2025 09:08-0400 Body hzqlmvqzuiz07.2 [degF]Carlos Enrique Maguire II Work Phone: [facility]09-02-2025 09:08-0400 Body ddvabw77.31 kgDanancy Maguire II Work Phone: 1(419)483-[address] [place], [place] 5618709-02-2025 09:08-0400 Diastolic blood xmeokaez63 mm[Hg]Carlos Enrique Maguire II Work Phone: 1(478)612-[address] [place], [place] 5618709-02-2025 09:08-0400 Heart rate75 /Rhiannon Maguire II Work Phone: 1(843)960-[address] [place], [place] 5618709-02-2025 09:08-0400 Respiratory rate16 /Rhiannon Maguire II Work Phone: 1(079)650-[address] [place], [place] 4965409-02-2025 09:08-0400 SaO2% (BldA) [Mass fraction]99 %Carlos Enrique Maguire II Work Phone: 1(877)019-[address] [place], [place] 4965409-02-2025 09:08-0400 Systolic blood mm[Hg]Carlos Enrique Maguire II Work Phone: 1(551)508-[address] [place], [place] 5618708-20-2025 10:35-0400 Body .3 cmSmarlene Morrell CATALOG LIBRARIAN Work Phone: 1(892)317-[address] [place], [place] [address]Ocdeeozkqd41-57-7687 10:35-0400Body mass index (BMI) [Ratio]16.69 kg/o8Dyfuxzveronica Morrell CATALOG LIBRARIAN Work Phone: 1(672)330-[address] [place], [place] [address]Xfwymdwdhw33-33-1159 10:35-0400Body eprshm03.26 kgShveronica Morrell CATALOG LIBRARIAN Work Phone: [facility] CareItydbuppbu29-57-7910 10:35-0400Diastolic blood mm[Hg]Haley Morrell CATALOG LIBRARIAN Work Phone: 1(695)054-[address] [place], [place] [address]Mnpumahhkk59-66-3708 10:35-0400Heart rate55 /min Haley Morrell CATALOG LIBRARIAN Work Phone: [facility] CareLtizxjkgna84-29-9846 10:35-0400Respiratory rate17 /minSmarlene Morrell CATALOG LIBRARIAN Work Phone: [facility] CareTdkvevgvcs25-73-2246 10:35-0931MpG9% (BldA) [Mass fraction]99 %Haley Morrell CATALOG LIBRARIAN Work Phone: [facility] CareHiklwvmqvl77-54-7582 10:35-0400Systolic blood kmekptln480 mm[Hg]Haley Morrell NP Work Phone: [facility] CareLhzeqtofjq70-97-9694 09:49-0400Body .26 cmDanancy Maguire II Work Phone: 1(974)220-[facility]08-13-2025 09:49-0400 Body mass index (BMI) [Ratio]16.7 kg/p7Tsowov Maguire II Work Phone: 1(816)971-[address] [place], [place] 4965408-13-2025 09:49-0400 Body .9 [degF]Carlos Enrique Maguire II Work Phone: 1(408)[address]08-13-2025 09:49-0400 Body fxaivs71.25 kgDanancy Maguire II Work Phone: 1(409)[address]08-13-2025 09:49-0400 Diastolic blood yzfhrluy80 mm[Hg]Carlos Enrique Maguire II Work Phone: 1(308)434-[address] [place], [place] 4965408-13-2025 09:49-0400 Heart rate58 /Rhiannon Maguire II Work Phone: 1(636)282-[address] [place], [place] 4965408-13-2025 09:49-0400 Respiratory rate14 /Rhiannon Maguire II Work Phone: 1(060)[address]08-13-2025 09:49-0400 SaO2% (BldA) [Mass fraction]99 %Carlos Enrique Maguire II Work Phone: 1(968)481-[address] [place], [place] 4965408-13-2025 09:49-0400 Systolic blood zxvvaaxd020 mm[Hg]Carlos Enrique Maguire II Work Phone: 1(027)365-[facility]07-23-2025 08:50-0400 Diastolic blood kspjedxw58 mm[Hg]Gabi Omalley PA-C Work Phone: [facility]07-23-2025 08:50-0400Heart rate 51 /minGabi Omalley PA-C Work Phone: [facility]07-23-2025 08:50-0400 Respiratory rate18 /minMegan Verhoff PA-C Work Phone: [facility] HospitalProximic Xikbmn56-38-9140 08:50-5269LzG4% (BldA) [Mass fraction]100 %Gabi Verhoff PA-C Work Phone: [facility] Dgqyuf59-11-7734 08:50-0400Systolic blood ynwbpeyx358 mm[Hg]Gabi Verhoff PA-C Work Phone: [facility] Skezjm43-16-8132 12:29-0400Body ebzuyp685.3 cmMegan Verhoff PA-C Work Phone: [facility] Qndhem73-90-4025 12:29-0400Body mass index (BMI) [Ratio]16.54 kg/n3Pjizg Verhoff PA-C Work Phone: [facility] Hcouqu53-63-2171 12:29-0400Body sobubx65.8 kgMegan Verhoff PA-C Work Phone: [facility] Rvilsm77-18-8563 12:29-0400Diastolic blood kevghwfz30 mm[Hg]Gabi Verhoff PA-C Work Phone: [facility] Rbdcut24-31-7567 12:29-0400Heart rate 59 /minMegan Verhoff PA-C Work Phone: [facility] Iyfeqc69-96-9472 12:29-0400 Respiratory rate18 /minMegan Verhoff PA-C Work Phone: [facility] Wxrvkm48-17-2249 12:29-4458YfF3% (BldA) [Mass fraction]100 %Gabi Verhoff PA-C Work Phone: [facility] Pqvdak38-41-7665 12:29-0400Systolic blood mm[Hg]Gabi Verhoff PA-C Work Phone: [facility] Mpwjze57-64-6742 10:11-0400Body bshbog563.3 cmSherri Ahsan CATALOG LIBRARIAN Work Phone: [facility] CareSizdrinxim43-35-4501 10:11-0400Body mass index (BMI) [Ratio]16.89 kg/p9TpsdfrHaley Reynavely CATALOG LIBRARIAN Work Phone: [facility] CareVzolcvdreh44-86-9086 10:11-0400Body szjpyl85.89 kgHaley Ahsan CATALOG LIBRARIAN Work Phone: [facility] CareVodfndjcco40-71-9075 10:11-0400Diastolic blood qklxnfur02 mm[Hg]Haley Ahsan CATALOG LIBRARIAN Work Phone: [facility] CareEqxnwscqkx90-54-8947 10:11-0400Heart rate54 /min Haley Morrell CATALOG LIBRARIAN Work Phone: [facility] CareOulxddjyrw86-45-0602 10:110400Respiratory rate16 /minSaidan Morrell CATALOG LIBRARIAN Work Phone: [facility] CareVydxtglmbg29-62-3821 10:11-6938LgC5% (BldA) [Mass fraction]98 %Haley Jemison CATALOG LIBRARIAN Work Phone: [facility] CareAqgejkpafs98-24-9314 10:11-0400Systolic blood xctwmiig159 mm[Hg]Haley Morrell CATALOG LIBRARIAN Work Phone: [facility] CareGfueebimge18-41-3720 08:38-0400Body exudrr122.3 cmDorian Arellanomer PA Work Phone: [facility] CareYzaqgydxuo28-63-6948 08:38-0400Body mass index (BMI) [Ratio]17.1 kg/d9Fzinn Hemmer PA Work Phone: [facility] CareRdejhtrjou77-20-0599 08:38-0400Body temperature 97.3 [degF]Dorian Hemmer PA Work Phone: [facility] CareOjzcigltee97-47-6794 08:38-0400Body nifdnt06.53 kgKirbyen Hemmer PA Work Phone: NOB[facility] HospitalIehujvfpxm62-83-6006 08:38-0400Diastolic blood qlosuimg09 mm[Hg]Dorian Hemmer PA Work Phone: NOB[facility] HospitalRcnqxocsym20-25-6839 08:38-0400Heart rate54 /min Dorian Hemmer PA Work Phone: NOB[facility] HospitalUdhkrbvwwf64-75-7207 08:38-0400Respiratory rate16 /minDorian Hemmer PA Work Phone: NOB[facility] HospitalUmpytygwrc10-10-3402 08:38-0305NlR4% (BldA) [Mass fraction]98 %Dorian Arellanomer PA Work Phone: NOB[facility] HospitalEzhwdpdjxw26-06-0433 08:38-0400Systolic blood dajrxlzg923 mm[Hg]Dorian Arellanomer PA Work Phone: [facility] CareUcpajwxitp68-54-9299 11:05-0500Body lorywc667.3 cmSmarlene Morrell CATALOG LIBRARIAN Work Phone: [facility] CareQxsardaulz33-58-5240 11:05-0500Body mass index (BMI) [Ratio]16.69 kg/x3RbayrtHaley Morrell CATALOG LIBRARIAN Work Phone: [facility] CareRbgkdodmcy91-52-2465 11:05-0500Body .26 kgHaley Morrell CATALOG LIBRARIAN Work Phone: [facility] CareWtvrzvltzw87-17-9412 11:05-0500Diastolic blood demvjaih37 mm[Hg]Haley Morrell CATALOG LIBRARIAN Work Phone: NOB[facility] HospitalZwgpdourrr22-40-9186 11:05-0500Heart rate56 /min Haley Morrell CATALOG LIBRARIAN Work Phone: [facility] CareVegleyuwxg26-45-8206 11:05-0500Respiratory rate17 /minSmarlene Morrell CATALOG LIBRARIAN Work Phone: NOB[facility] HospitalVajifsbwkp23-88-6878 11:05-2807BeU5% (BldA) [Mass fraction]99 %Haley Morrell CATALOG LIBRARIAN Work Phone: [facility] CarePimkpfebkq60-75-5058 11:05-0500Systolic blood mukxfeyq954 mm[Hg]Haley Morrell CATALOG LIBRARIAN Work Phone: NOB[facility] HospitalCzdpkgqcfw61-23-3476 14:00-0500Body mkvytf588.3 cmMichael Kong CATALOG LIBRARIAN Work Phone: [facility] CareOpjwalmhlh90-70-7828 14:00-0500Body mass index (BMI) [Ratio]17.66 kg/m2Michael Kong CATALOG LIBRARIAN Work Phone: [facility] CareUczkdgpwpg71-82-4236 14:00-0500Body jetcyl45.25 kgMichael Kong CATALOG LIBRARIAN Work Phone: [facility] CareAxicrcrxix64-83-9269 14:00-0500Diastolic blood nejljpdy79 mm[Hg]Michael Derek CATALOG LIBRARIAN Work Phone: [facility] CareXxpnunvdqs40-31-1289 14:00-0500Heart rate67 /min Michael Kong CATALOG LIBRARIAN Work Phone: [facility] CareXdmwwznryu64-66-4308 14:00-0500Respiratory rate17 /minMichael Kong CATALOG LIBRARIAN Work Phone: [facility] CareBstmvmmghh11-53-5499 14:00-9337GcG5% (BldA) [Mass fraction]99 %Michael Kong CATALOG LIBRARIAN Work Phone: [facility] CareVoeipdiykl03-44-1139 14:00-0500Systolic blood knzhcyiv749 mm[Hg]Michael Kong CATALOG LIBRARIAN Work Phone: [facility] CareGcwbmxjoub29-53-4684 13:06-0500Body nenwhp290.3 cmMichael Kong CATALOG LIBRARIAN Work Phone: [facility] CareCchuwpjiti85-05-5942 13:06-0500Body mass index (BMI) [Ratio]17.43 kg/m2Michael Kong CATALOG LIBRARIAN Work Phone: [facility] CarePbardbniuc42-92-9031 13:06-0500Body drtjay83.52 kgMichael Kong CATALOG LIBRARIAN Work Phone: [facility] CareIktwybnyex41-38-2946 13:06-0500Diastolic blood hfvalgmr93 mm[Hg]Michael Kong CATALOG LIBRARIAN Work Phone: [facility] CareEnmkpohzqe44-85-2486 13:06-0500Heart rate56 /min Michael Kong CATALOG LIBRARIAN Work Phone: [facility] CareArtkimngbk07-64-5845 13:06-8191RpM7% (BldA) [Mass fraction]97 %Michael Kong CATALOG LIBRARIAN Work Phone: noUltimate Football NetworkLncimqdscs40-55-5134 13:06-0500Systolic blood vhbgbunv433 mm[Hg]Michael Kong CATALOG LIBRARIAN Work Phone: noUltimate Football NetworkKxceioanoa06-72-3596 13:25-0400Body zaozqf503.34 cmJosephine Garzarbacher Other [employer] Other 9-106763-43243725-69-4282 13:25-0400Body mass index (BMI) [Ratio]18.6 kg/q5FwhejsrzJosephine Garzarbacher Other [employer] Other 2-564316-06619297-98-6021 13:25-0400Body qlwfwvodtzv95.3 [degF] Josephine Castillo Other [employer] Other 4-133348-47250851-48-6582 13:25-0400Body qhpydv37.51 kgFranciscohimanshu Garzarbacher Other [employer] Other 10-31-2023 13:25-0400Diastolic blood ghkjxnaj67 mm[Hg] Josephine Castillo Other [employer] Other 10-31-2023 13:25-0400Respiratory rate18 /minJosephine Rainacheedgar Other [employer] Other 10-31-2023 13:25-9513AqT0% (BldA) [Mass fraction]96 % Josephine Castillo Other [employer] Other 10-31-2023 13:25-0400Systolic blood dviisdwh549 mm[Hg] Josephine Castillo Other [employer] Other Encounters Encounter DateEncounter TypeCare ProviderFacilityStart: 07-26-2025 End: 27-01-9718Ztihkx flowsheetTimothy L Cromwell DO Work Phone: [facility] 230Start: 07-26-2025 End: 05-31-1241Vxavsz flowsheetTimothy L Cromwell DO Work Phone: [facility] 230Start: 07-26-2025 End: 70-24-6391Fvldmdrdt encounterTimothy L Cromwell DO Work Phone: [facility] 230Comment on above:Med RefillStart: 07-26-2025 End: 71-77-6573devvhflwrjHGVSSLZ L CUTLERNot AvailableStart: 07-24-2025 End: 73-09-6444Xxiukvkat encounterTimothy L Cromwell DO Work Phone: [facility] 230Comment on above: Appointment RequestStart: 07-21-2025 End: 53-78-5223Mnksrptpf encounterLeny Madsen [facility] - Pain Management ClinicStart: 07-19-2025 End: 53-06-5573Amhxox outpatient visit 25 minutesGabi Omalley PA-C Work Phone: [facility] ClinicComment on above:Thoracic spine pain (Primary Dx); Thoracic spondylosis without myelopathy; Lumbar spondylosisStart: 07-19-2025 End: 86-38-9566khypxlyeshNSTMI N VERHOFFTrumbull Regional Medical Center HospitalStart: 07-18-2025 End: 85-21-5029Tddxvfqyx encounterMicjenna Castro DO Work Phone: [facility] General SurgeryStart: 07-13-2025 End: 91-25-3872avjvmxmbgeJtv Pat Phone Call Provider [address] [place] [address] - Pre AdmitStart: 07-12-2025 End: 11-51-5168Nmyftpeoc encounterMebryce N Verhoff PA-C Work Phone: [facility] ClinicStart: 07-12-2025 End: 06-02-7672imwlwfvnlvJLTVOhio Valley Surgical Hospitaltart: 07-11-2025 End: 41-05-5825Rvjoxk outpatient new 30 minutesEncompass Health Rehabilitation [facility] Yesica Ortiz MANAGER [facility] Work Phone: [facility] General SurgeryComment on above: Weight loss (Primary Dx); Nausea and vomiting, unspecified vomiting type; Marijuana abuseStart: 07-11-2025 End: 28-66-0297djnswjhhvrOCCADAXPeaceHealth St[facility] Start: 07-09-2025 End: 09-92-0856Dvdaxvmpo department patient visitHansen Family Hospital HospitalStart: 06-30-2025 End: 41-70-8737eufjxjfdazLkgqfs Berry II Work Phone: [facility] Work Phone: Start: 06-30-2025 End: 65-07-2891Ckigall encounter Luis Fernando Corrigan APRN-[facility] Work Phone: Start: 06-27-2025 End: 11-88-9428Rtszzfghf encounterSteffi Israel [facility] - Pain Management ClinicStart: 06-26-2025 End: 69-49-6381AmzxdlZaxcjo M Shively CATALOG LIBRARIAN Work Phone: [facility] MedinceComment on above:Situational mixed anxiety and depressive disorder ; AnxietyStart: 06-23-2025 End: 74-80-6450Dhadlwgii encounterStacie Carranza [facility] - Pain Management ClinicStart: 06-23-2025 End: 23-55-6798drmjqlxivgHYXVYEL E HOGANTrumbull Regional Medical Center HospitalStart: 06-21-2025 End: 21-58-0364Vwacrn flowsRoberth Morrell NP Work Phone: [facility] MedinceStart: 06-21-2025 End: 05-98-5272Hxspav Bubba Morrell CATALOG LIBRARIAN Work Phone: [facility] MedinceStart: 06-21-2025 End: 60-08-2781Clfjoi outpatient visit 25 minutesHaley Morrell CATALOG LIBRARIAN Work Phone: [facility] MedinceComment on above:Pre- operative clearance (Primary Dx)Start: 06-21-2025 End: 27-94-2822Xbqaxkehsdkd stateSmarlene Morrell CATALOG LIBRARIAN Work Phone: [facility] Work Phone: Start: 06-21-2025 End: 47-87-8360xxzblihdtlSACZTI M SHIVELYNot AvailableStart: 06-16-2025 End: 86-92-9402Ocpvnajbl encounterMercy Health [facility] - Pain Management ClinicStart: 06-15-2025 End: 86-88-4311Rxuyrt outpatient visit 25 minutesHaley Morrell CATALOG LIBRARIAN Work Phone: [facility] MedinceComment on above:Weight loss (Primary Dx); Gastric pain; Nausea and vomiting, unspecified vomiting type; Dysphagia, unspecified type; Pericardial effusion (HHS-HCC); Skin infectionStart: 06-15-2025 End: 07-24-8992zsmppcsdibPLPBDJ M SHIVELYNot AvailableStart: 06-15-2025 End: 26-60-8156Pihhdk Bubba Morrell CATALOG LIBRARIAN Work Phone: [facility] MedinceStart: 06-15-2025 End: 18-41-9678Prvmjyangelique Morrell CATALOG LIBRARIAN Work Phone: [facility] MedinceStart: 06-13-2025 End: 63-15-7643pqdcqorbacEdxgyy Maguire II Work Phone: [facility] Work Phone: Start: 06-13-2025 End: 90-26-0407Jbgcnni encounter procedurePetevaleria Corrigan MANAGER [facility] Work Phone: Start: 06-08-2025 End: 51-96-1772NcvqobQmzowb B Berry MD Work Phone: [facility] [address] [place] [address] MedicineComment on above:Anxiety Start: 06-07-2025 End: 11-77-4700Rjsmcb outpatient visit 15 minutesGabi Omalley PA-C Work Phone: [facility] ClinicComment on above:Thoracic spondylosis without myelopathy (Primary Dx) Start: 06-07-2025 End: 33-42-1680guvyyghyltEZJLF HU HU K[facility] MEMORIAL HOSPITALABHIJITTrumbull Memorial Hospitaltart: 06-06-2025 End: 03-07-4456nocixeekoxOcgany Berry II Work Phone: [facility] Work Phone: Start: 06-06-2025 End: 61-61-8263Yrldnzg encounter procedureJaqui Zeng APRN-[facility] Work Phone: Start: 05-24-2025 End: 21-16-3446Draxcmdede Morrell CATALOG LIBRARIAN Work Phone: [facility] MedinceStart: 05-24-2025 End: 01-41-5819Hvmklnangelique Morrell CATALOG LIBRARIAN Work Phone: [facility] MedinceStart: 05-24-2025 End: 98-18-8945qmcvruoiumIMDIID M SHIVELYNot AvailableStart: 05-24-2025 End: 51-93-1691Etfbwy outpatient visit 25 minutesHaley Morrell CATALOG LIBRARIAN Work Phone: [facility] MedinceComment on above:SOB (shortness of breath) (Primary Dx); Nausea and vomiting, unspecified vomiting type; Muscle spasm; Abrasion; Gastroesophageal reflux disease with esophagitis without hemorrhage; Murmur, heartStart: 05-22-2025 End: 08-90-1335Dkflurocs encounterDanancy Maguire MD Work Phone: noms [address] MedicineComment on above: Thoracic spondylosis without myelopathy; Lumbar spondylosisStart: 05-20-2025 End: 88-73-4835JuidsdKztrpe B Berry MD Work Phone: [facility] MedinceComment on above:Anxiety; Severe back painStart: 05-19-2025 End: 59-38-8397nioitgluvrDIFJYXE Sheila [facility] OKLA[facility] CITYRIKYTrumbull Memorial Hospitaltart: 05-17-2025 End: 34-13-5217fongpctajxJbxusg Berry II Work Phone: [facility] Work Phone: Start: 05-17-2025 End: 32-75-0933Oftnked encounter procedurePatricjaved Dill MANAGER [facility] Work Phone: Start: 56-49-0739kgimdmvzyvCMOPC [facility] Hospitaltart: 04-26-2025 End: 54-89-1674Shhrad outpatient visit 25 minutesMebryce Omalley PA-C Work Phone: [facility] Management ClinicComment on above:Thoracic spondylosis without myelopathy (Primary Dx); Lumbar spondylosisStart: 04-26-2025 End: 12-42-1483uqvcsptzzzPVWSX N VERHOОЛЬГАProBaylor Scott & White [facility] Fort Worthtart: 04-24-2025 End: 44-10-8498MjaqhbJvdpup B Berry MD Work Phone: [facility] FM 100Comment on above:Severe back painStart: 04-17-2025 End: 88-19-7169NvstutJgjvqn B Berry MD Work Phone: [facility] CI FMComment on above:AnxietyStart: 04-08-2025 End: 05-35-3086RaamkpNyxyqk B Berry MD Work Phone: [facility] FMComment on above:Severe back painStart: 17-32-5498qihadayfgsVFAZY [facility] HospitalStart: 03-15-2025 End: 35-37-9881ssxdgijpzjSNRNQ M HEMMERNot AvailableStart: 03-15-2025 End: 60-92-3500Mnofvpoug encounterCarlos Enrique Maguire MD Work Phone: [facility] FMStart: 03-15-2025 End: 22-46-0832anhvyvaafiTIFVWOrange County Community Hospitaltart: 03-15-2025 End: 80-42-1350Ofyoyr outpatient new 45 minutesMegan N Shahram CEDEÑOC Work Phone: [facility] ClinicComment on above:Thoracic spondylosis without myelopathy (Primary Dx); Lumbar spondylosisStart: 03-14-2025 End: 28-22-8798Feaxrvfcc encounterCarlos Enrique Maguire MD Work Phone: [facility] FMStart: 03-10-2025 End: 93-87-6962rxczpygkwcYIWWBU M SHIVELYNot AvailableStart: 03-02-2025 [facility] PPGStart: 02-28-2025 End: 32-14-7417Dwxfhv Bubba Morrell CATALOG LIBRARIAN Work Phone: [facility] FMStart: 02-28-2025 End: 48-83-3045Kqixtm Bubba Morrell CATALOG LIBRARIAN Work Phone: [facility] FMStart: 02-28-2025 End: 58-93-1389Ndvhhhqvl Zora Morrell CATALOG LIBRARIAN Work Phone: [facility] FMStart: 02-28-2025 End: 13-20-5652oadbfjeryvBSUNBT M SHIVELYNot AvailableStart: 02-28-2025 End: 30-37-5934Sejjx of hemosiderin, quantSherri M Jemison CATALOG LIBRARIAN Work Phone: [facility] HealthcareStart: 02-28-2025 End: 89-33-8065Mrsjxrh encounter procedureSmarlene Morrell CATALOG LIBRARIAN Work Phone: [facility] CI FMComment on above:Chronic bilateral thoracic back pain (Primary Dx); Reactive depression (situational) [...] of nicotine dependence; Medicare annual wellness visit, subsequentStart: 02-28-2025 End: 43-95-0801pdkafsatfgQTAOLF M SHIVELYNot AvailableStart: 02-06-2025 End: 81-81-7860Xodfqa Alvaro PATRICIO Work Phone: [facility] FMStart: 02-06-2025 End: 09-08-9863Kzwkep Alvaro PATRICIO Work Phone: [facility] FMStart: 02-06-2025 End: 55-93-8169Nqnlsk outpatient visit [address] PATRICIO Work Phone: [facility] CI FMComment on above:Nausea and vomiting, unspecified vomiting type (Primary Dx); Chronic idiopathic constipation; Acute bilateral low back pain without sciaticaStart: 02-06-2025 End: 65-31-6929rtfivwlcbwBNKSJTasha Fox AvailableStart: 01-26-2025 End: 18-61-5306IfzvgcYdhzdq B Berry MD Work Phone: [facility] CI FMComment on above:Severe back painStart: 01-06-2025 End: 40-56-4548PgaoauBftrhz B Berry MD Work Phone: [facility] CI FMComment on above:Severe back painStart: 11-29-2024 End: 68-51-5232Npwshc Bubba Morrell CATALOG LIBRARIAN Work Phone: [facility] FMStart: 11-29-2024 End: 54-18-6687Zzdauk Bubba Morrell CATALOG LIBRARIAN Work Phone: [facility] FMStart: 11-29-2024 End: 88-95-6395Xzwgkk outpatient visit 25 minutesShveronica Morrell CATALOG LIBRARIAN Work Phone: [facility] CI FMComment on above:Severe back pain; AnxietyStart: 11-29-2024 End: 59-86-4995ppctjhrxlsJRERBT M SHIVELYNot AvailableStart: 11-28-2024 End: 01-93-7339Kaidfvfhs department patient visitKettering Health Hamiltontart: 11-09-2024 End: 56-28-9944Ryiqcr Pedro Kong CATALOG LIBRARIAN Work Phone: [facility] FMStart: 11-09-2024 End: 59-64-5077Wghmmy Pedro Kong CATALOG LIBRARIAN Work Phone: [facility] FMStart: 11-09-2024 End: 28-24-0447Kmbelg outpatient visit 25 minutesMichael Kong CATALOG LIBRARIAN Work Phone: [facility] CI FMComment on above:Anxiety (Primary Dx); Severe back pain; Reactive depression (situational) (CMS/HCC); [...] recent episode mixed (CMS/HCC) Start: 11-09-2024 End: 88-94-9957gezxzjdireHWEEvelio Alaniz AvailableStart: 10-03-2024 End: 16-68-1918Qhbtwqzwc encounterMarsha ROSARIO SWS UCStart: 09-29-2024 End: 99-58-4616Uvoapr Pedro Kong CATALOG LIBRARIAN Work Phone: [facility] FMStart: 09-29-2024 End: 84-94-0658Ldswpo Pedro Kong CATALOG LIBRARIAN Work Phone: [facility] FMStart: 09-29-2024 End: 80-41-3828Gjpmxt outpatient visit 25 minutesMichael Kong CATALOG LIBRARIAN Work Phone: [facility] CI FMComment on above:Hospital discharge follow- up (Primary Dx); Degenerative disc disease, thoracic; Severe back pain; Muscle spasm; Reactive depression (situational) (CMS/HCC); Situational mixed anxiety and depressive disorder (CMS/HCC); Weight lossStart: 09-29-2024 End: 07-94-6381hdezxwkovcTGREvelio Alaniz AvailableStart: 08-04-2023 End: 30-37-2020jickafithiPrbnyymp Rohrbacher Other [facility] [employer] Other Start: 39-77-3233Lysjso outpatient new 20 minutes Josephine [facility] ClydeStart: 12-05-2019 End: 50-55-0087Ysktdha encounter procedureDANIEL BERRYFacility:L6Smcgq: 12-04-2019 End: 12-52-0946Exmvgtq encounter procedureDANIEL BERRYFacility:E2Rpsrj: 12-17-2018 End: 59-79-0403Tuaqjoo encounter procedureDANIEL BERRYFacility:H1 Plan of Treatment DateCare ActivityDetailAuthorStart: 26-66-7428RXbK,Tdap and Td Vaccines (2 - Td or Tdap)DTaP,Tdap and Td Vaccines (2 - Td or Tdap)[facility] SystemStart: 38-66-9473Thgkpvr ScreeningTobacco ScreeningProUc Healthca Health SystemStart: 36-42-1844Tjyzwsv ScreeningTobacco ScreeningProUc Healthca Health SystemStart: 61-45-7250Xhuow BMI ScreeningAdult BMI ScreeningProUc Healthca Health SystemStart: 78-45-3791Itrdbns ScreeningTobacco ScreeningProUc Healthca Health SystemStart: 99-08-2243Skbsygy ScreeningTobacco ScreeningCleveland Clinic Luther[facility] Hospitalca [facility] SystemStart: 20-14-9402Ymjze BMI ScreeningAdult BMI ScreeningCleveland Clinic Lutheran Hospitalca [facility] SystemStart: 24-57-5682Fdzmkwy ScreeningTobacco ScreeningC[facility] Clinic Lutheran Hospitalca [facility] SystemStart: 67-63-0910Lzzjr BMI ScreeningAdult BMI ScreeningCleveland Clinic Lutheran [facility] SystemStart: 05-27-2026Medicare Annual Wellness (AWV)Medicare Annual Wellness (AWV)NOM HealthcareStart: 09-04-2025 End: 44-58-7555Lqkkzpt encounter wijayxljl98/01/2025 8:40 AM EST Office Visit [facility] [address] [place] [address] Jean Pierre Galo DO [address] [place] [address] [facility] 230 Start: 08-23-2025 End: 47-95-0423Mhsourb encounter jbdgvcieo44/19/2025 10:30 AM EST Office Visit [facility] [place] [facility] [address] [place] [address] Haley Morrell NP [address] [place] [address] [facility] [place] [facility]: 08-22[facility]2025 End: 21-59-8158Ppkrhmp encounter /18/2025 8:00 AM EST Office Visit [facility] [address] [facility] [place] [address] Zarina Holt, MANAGER VAN-PNEUMATIC TOOL REPAIRER [address] [place] [address] [facility] ClinicStart: 08-10-2025 End: 59-53-9787Edzpjyq encounter jtavnktku46/06/2025 7:15 AM EST Appointment [facility] [address] [place] [address] Gabi Omalley PA-C [address], [address] [place] [address] [facility] ImagingStart: 07-26-2025 End: 14-45-6896Udocysj encounter hhfxgivlz45/22/2025 8:20 AM EDT Office Visit [facility] [address] [place] [address] Jean Pierre Galo, [address] [place] [address] [facility] 230Comment on above:ArrivedStart: 07-20-2025 End: 81-80-5290Tjcvsfjxk to same day surgery xiuotm0907/20/2025 11:00 AM EDT - 07/20/2025 11:45 AM EDT Surgery [facility] [address] [place] [address] Gustaov Castro, DO [facility] [place], [place] [address] ESOPHAGOGASTRODUODENOSCOPY DIAGNOSTIC [48533 (CPT )][facility] SurgeryComment on above:ESOPHAGOGASTRODUODENOSCOPY DIAGNOSTIC [71618 (CPT )]Start: 07-20-2025 End: 84-32-3256Phzkvbaoxfw flx dx w/collj spec when pfrmdCOLONOSCOPY DIAGNOSTIC / SCREENING unintentional weight loss 07/20/2025 11:00 AM EDTFREMONT [facility] Start: 07-20-2025 End: 17-11-0230Fcszakwscbqnvabaiqxeurunyb transoral diagnostic ESOPHAGOGASTRODUODENOSCOPY DIAGNOSTIC unintentional weight loss 07/20/2025 11:00 AM EDTFREMONT SURGERYStart: 08-66-0310Ajbawsfesk hospital visit by physician [facility]Start: 07-19-2025 End: 77-24-3273NL Thoracic spine WO contrastMR thoracic spine without contrast Imaging Routine Thoracic spondylosis without myelopathy Thoracicspine pain Expected: 07/19/2025, Expires: 07/19/2026[facility] Work Phone: Comment on above:Expected: 07/19/2025, Expires: 07/19/2026Start: 07-19-2025 End: 44-74-9595Qprgvak encounter spamtwgza01/15/2025 10:45 AM EDT Office Visit [facility] [address] [place] [address] Gabi Omalley, GALAC [address] [place], [place] [address] [facility] ClinicStart: 07-17-2025 End: 85-79-7714Vrzacrjphx mfrexdiccfii45/13/2025 11:59 PM EDT Anesthesia Event [facility] [address] [place] [address] Costa Brooke, DO [address] [place] [address] [facility] Start: 07-13-2025 End: 26-49-4222vlbmpmacoe99/09/2025 1:50 PM EDT Support Visit [facility] [address] [address] 753 [facility] Pre AdmitStart: 07-11-2025 End: 09-98-3276Ynspopz encounter lfwftoqgf47/07/2025 9:00 AM EDT Office Visit [facility] [address] [place], [place] Monica Ortiz, MANAGER VAN-PNEUMATIC TOOL REPAIRER [address] [place] [address] [facility] SurgeryStart: 06-23-2025 End: 30-34-6752Vgnihvojs to same day surgery vzmnid8606/23/2025 10:07 AM EDT - 06/23/2025 10:14 AM EDT Surgery [facility] [address] [address] Kota Petty MD [address] [address] INJECTION FACET JOINT Bilateral T 3/4, 4/5 [96872 (CPT )][facility] ProceduresComment on above:INJECTION FACET JOINT Bilateral T 3/4, 4/5 [42945 (CPT )]Start: 06-23-2025 End: 29-37-8533Kzq dx/ther agt pvrt facet jt crv/thrc 1 levelINJECTION FACET JOINT Thoracic spondylosis without myelopathy 06/23/2025 10:07 AM EDTFREMONT PAINStart: 61-11-8464Oowpraucmy hospital visit by hvnlnjufh75/19/2025 10:07 AM EDT Hospital Encounter [facility] [address] [address] Kota Petty MD [address] [place] [address] [facility] ProceduresStart: 06-21-2025 End: 48-53-5751Zxfvqzy encounter zhmpcusiw21/17/2025 11:30 AM EDT Office Visit [facility] [place] [facility] [address] [place] [address] Haley Morrell NP [address] [place] [address] ArrivedNOMS [place] [facility] MedinceComment on above:ArrivedStart: 06-15-2025 End: 62-40-3438Hchynsw encounter byekwinff93/11/2025 4:00 PM EDT Office Visit [facility] [place] [facility] [address] [place] [address] Haley Morrell NP [address] [place] [address] ArrivedNOMS [place] [facility] MedinceComment on above:ArrivedStart: 06-08-2025 End: 16-52-6255Gldooph encounter hzfsjccxu37/04/2025 7:30 AM EDT Appointment [facility] [address] [place] [address] [place] [address] [phone]. [facility] Start: 06-07-2025 End: 92-07-8105Nnbxwsb encounter procedureProEast [facility] - Pain [facility] ClinicStart: 02-62-5749Uwfgljltt vaccinationUniversity of Missouri Health Care Start: 05-24-2025 End: 90-27-8202Nudxkzfoicstfm 2D completeEchocardiogram 2D complete Echocardiography Routine Murmur, heart SOB (shortness of breath) Expected: 05/24/2025 (Approximate), Expires: 05/24/2027[facility] Work Phone: Comment on above:Expected: 05/24/2025 (Approximate), Expires: 05/24/2027Start: 05-24-2025 End: 35-76-0072Osscegb encounter procedureNOSAINT FRANCIS [facility] FMStart: 05-19-2025 End: 57-71-1362Xgccucduh to same day surgery myyxgb1505/19/2025 9:45 AM EDT - 05/19/2025 9:52 AM EDT Surgery [facility] P rocedures [address] [place] [address] [place] [address] Kota Petty MD [address] [place] [place] [address] INJECTION FACET JOINT Bilateral T 3/4, 4/5 [76720 (CPT )][facility] ProceduresComment on above:INJECTION FACET JOINT Bilateral T 3/4, 4/5 [73038 (CPT )]Start: 05-19-2025 End: 15-91-0236Ukr dx/ther agt pvrt facet jt crv/thrc 1 levelINJECTION FACET JOINT Thoracic spondylosis without myelopathy 05/19/2025 9:45 AM EDTFREMONT PAIN Start: 39-41-2809Guckbftydm hospital visit by zljrwopsr55/15/2025 9:45 AM EDT Hospital Encounter [facility] Procedures [address] [place] [address] Kota Petty MD [address], [place] [address] [facility] ProceduresStart: 04-26-2025 End: 77-78-0332Ximitwk encounter szkssopdp19/23/2025 8:45 AM EDT Office Visit [facility] [address] [place] [address] Gabi Omalley, PA-C [address], [address] [place], [place] [address] [facility] ClinicStart: 03-15-2025 End: 61-96-9666AJ Chest 2 ViewsXR chest 2 views Imaging Routine Rib pain Expected: 03/15/2025, Expires: 03/15/2026[facility] Work Phone: Comment on above:Expected: 03/15/2025, Expires: 03/15/2026Start: 03-15-2025 End: 21-10-4151JQ Ribs Views and Chest [facility] Work Phone: Comment on above:Expected: 03/15/2025, Expires: 03/15/2026Start: 02-28-2025 End: 83-28-6038BET panel - Blood by Automated countCBC Lab Routine Orthostatic hypotension Expected: 02/28/2025 (Approximate), Expires: 02/28/2026N[facility]S HealthcareComment on above:Expected: 02/28/2025 (Approximate), Expires: 02/28/2026Start: 02-28-2025 End: 44-42-9690Uiqcfsoex (Vitamin B12) [Mass/volume] in Serum or PlasmaVitamin B12 Lab Routine Vitamin B12 deficiency Expected: 02/28/2025 (Approximate), Expires: 02/28/2026N[facility]S HealthcareComment on above:Expected: 02/28/2025 (Approximate), Expires: 02/28/2026Start: 02-28-2025 End: 16-88-1489Mtdhwmsitffkw metabolic 2000 panel - Serum or PlasmaComprehensive metabolic panel Lab Routine Acquired hypothyroidism (CMS/HCC) Orthostatic hypotensionWeight loss Expected: 02/28/2025 (Approximate), Expires: 02/28/2026 [facility] HealthcareComment on above:Expected: 02/28/2025 (Approximate), Expires: 02/28/2026Start: 02-28-2025 End: 75-71-9400WD Chest for screening WO contrastNOMS HealthcareComment on above:Expected: 02/28/2025 (Approximate), Expires: 02/28/2026Expected: 02/28/2025, Expires: 02/28/2026Start: 02-28-2025 End: 67-64-1229Pbblb 1996 panel - Serum or PlasmaLipid panel Lab Routine Mixed hyperlipidemia (CMS/HCC) Expected: 02/28/2025 (Approximate), Expires:02/28/2026 [facility] HealthcareComment on above:Expected: 02/28/2025 (Approximate), Expires: 02/28/2026Start: 02-28-2025 End: 25-64-1779Gtuapwch specific Ag [Mass/volume] in Serum or PlasmaPSA Lab Routine Screening for prostate cancer Expected: 02/28/2025 (Approximate), Expires: 02/28/2026N[facility]S HealthcareComment on above:Expected: 02/28/2025 (Approximate), Expires: 02/28/2026Start: 02-28-2025 End: 47-67-9629PCR W/REFLEX TO FT4TSH W/REFLEX TO FT4 Lab Routine Acquired hypothyroidism (CMS/HCC) Expected: 02/28/2025 (Approximate), Expires: 02/28/2026 [facility] Work Phone: Comment on above:Expected: 02/28/2025 (Approximate), Expires: 02/28/2026Start: 02-28-2025 End: 74-28-1827AZ Abdomen Single viewXR ABDOMEN 2 VIEW Imaging Routine Chronic idiopathic constipation Expected: 02/28/2025, Expires: 02/28/2026[facility] Comment on above:Expected: 02/28/2025, Expires: 02/28/2026Start: 02-28-2025 End: 92-68-1994WW Lumbar spine Views W flexion and W extensionXR lumbar spine 4+ views w flexion extension Imaging Routine Acute bilateral low back pain without sciatica Expected: 02/28/2025, Expires: 02/28/2026N[facility]S HealthcareComment on above:Expected: 02/28/2025, Expires: 02/28/2026Start: 02-28-2025 End: 69-35-0299Alynxvh encounter procedureNOMS CI FMComment on above:Arrived Start: 02-08-2025 End: 27-60-5516Xnbiqub encounter cowmkvijz17/07/2025 1:00 PM EDT Office Visit [facility] [address] [place] [address] Michael Kong, CATALOG LIBRARIAN [address] [place] [address] [facility] FMStart: 02-06-2025 End: 45-14-8019Gavuuoe encounter wsyygtkaw56/05/2025 8:30 AM EDT Office Visit [facility] [address] [place] [address] Dorian Heck PA [address] [place] [address] ArrivedNOMS CI FMComment on above:ArrivedStart: 03-06-2025Medicare Annual Wellness (AWV)Medicare Annual Wellness (AWV)[facility] HealthcareStart: 99-23-1785Wxrfryxir for malignant neoplasm of colonColorectal Cancer ScreeningNOMS HealthcareComment on above:Postponed from 1966 (Patient Refused)Start: 11-29-2024 End: 42-09-4337Robjmay encounter wzcbbvqmo08/25/2025 11:00 AM EST Office Visit [facility] [address] [place] [address] Haley Morrell NP [address] [place] [address] ArrivedNOMS CI FMComment on above:ArrivedStart: 11-09-2024 End: 26-34-8580Kehuhrc encounter woustnyfk75/05/2025 2:00 PM EST Office Visit [facility] [address] [place] [address] Michael Kong, CATALOG LIBRARIAN [address] [place] [address] ArrivedNOMS CI FMComment on above:ArrivedStart: 10-27-2024 End: 37-86-7964Hiptdtv encounter tmgourkck73/23/2025 1:30 PM EST Office Visit [facility] [address] [place] [address] Michael Kong, CATALOG LIBRARIAN [address] [place] [address] [facility] FMStart: 09-29-2024 End: 26-68-9687Agjlazt encounter snalkmney38/26/2024 1:00 PM EST Office Visit [facility] [address] [facility] [address] [place] [address] Michael Kong, CATALOG LIBRARIAN [address] [place] [address] ArrivedNOMS CI FMComment on above:ArrivedStart: 12-40-2613Zxviksafk vaccinationInfluenza Vaccine (#1)[facility] HealthcareStart: 21-94-8735Bcjsuvdotchnij of varicella zoster vaccineZoster (Shingles) Vaccine (1 of 2)[facility] SystemStart: 81-44-7605MAsA,Tdap and Td Vaccines (1 - Tdap)DTaP,Tdap and Td Vaccines (1 - Tdap)[facility] SystemStart: 43-97-3003Bftev BMI Follow Up PlanAdult BMI Follow Up PlanProSt. Vincent Hospital SystemStart: 76-35-0971Rgggskqbjy ScreeningDepression ScreeningProSt. Vincent Hospital SystemStart: 11-53-4193Aurdctg ScreeningTobacco ScreeningGrand Lake Joint [facility] Start: 44-78-7023Addakyvse for malignant neoplasm of colonNOCA HealthcareStart: 84-96-3400Woyhvgr CounselingTobacco CounselingMercy Health Springfield Regional Medical CenterColonoscopy flx dx w/collj spec when pfrmdCOLONOSCOPY DIAGNOSTIC / SCREENING unintentional weight lossFREMONT SURGERY End: 18-36-6992QPL / ColonoscopyEGD / Colonoscopy GI Routine Weight loss Nausea and vomiting, unspecified vomiting type 1 Occurrences starting 07/11/2025 until 07/11/2026[facility] Work Phone: Comment on above:1 Occurrences starting 07/11/2025 until 07/11/2026Esophagogastroduodenoscopy transoral diagnostic ESOPHAGOGASTRODUODENOSCOPY DIAGNOSTIC unintentional weight lossFREMONT SURGERY [facility] Immunizations Immunization DateImmunizationNotesCare LmgzzxqcAbekcfdw23-53-6471ffdveoo and diphtheria toxoids, adsorbed, preservative free, for adult use (5 Lf of tetanus toxoid and 2 Lf of diphtheria toxoid)Carlos Enrique Andrez II Work Phone: [facility]09-18-2020influenza, injectable, quadrivalent, preservative freeMichael Kong CATALOG LIBRARIAN Work Phone: [facility] CareShtstcnbai55-84-5128fugkqagoy virus vaccine, unspecified formulationKisujey Kong CATALOG LIBRARIAN Work Phone: [facility] CareQtamsmbupi96-84-0819nbiejgpsp, injectable, quadrivalent, contains preservativeKisujey Kong CATALOG LIBRARIAN Work Phone: [facility] CareZknmdjphcv83-98-6802llripahl influenza, intradermal, preservative freeMichael Kong CATALOG LIBRARIAN Work Phone: [facility] CareBwbnhspbok81-52-7790tmnlyurm influenza, intradermal, preservative freeMichael Kong CATALOG LIBRARIAN Work Phone: [facility] CareXxarfvvkzh73-91-9460aaivexnl influenza, intradermal, preservative freeMichael Kong CATALOG LIBRARIAN Work Phone: [facility] Payers DatePayer CategoryPayerPolicy [id number] 2025Medicare O [id number] 2024Medicare (Managed Care) [id number] 2023Self-pay2018Medicaid [id number] 2.16.840.1.502406.3.57[id number] 2.840.1.144714.3.579.[id number] 2.840.1.540112.3.57[id number] 2.840.1.527730.3.579.2.[id number] 2.0.1.817898.3.579.2.81[id number] 2..1.508040.3.579.2.626167-25-0328Qsbrxuo428763850 2..1.972295.3.579.2.740531-02-2167Wourphr823031952 2..1.679274.3.579.2.977262-07-5991Llevvyh743055071 2.0.1.897831.3.579.2.949963-52-9011Hxiifcy062529839 2..1.529825.3.579.2.933139-23-7505Rdbjvra898449435 2..1.329957.3.579.2.458724-53-7575Djyimtl765342728 2..1.073846.3.579.2.501689-43-4836Bemvxev073462525 2..1.860733.3.579.2.257738-65-0151Loylwpv182079304 2.840.1.445420.3.579.2.003427-52-8951Klbtenq355834085 2.840.1.927991.3.579.2.6[id number] 2.16.840.1.427309.3.579.2.818424-59-9264Phirvmq096199655 2.840.1.966163.3.579.2.046081-50-5943Xnvfatd025462988 2.840.1.087364.3.579.2.025615-29-7786Ulyedcm323443209 2.0.1.563184.3.579.2.499518-27-8353Dfdlbiy095470392 2.0.1.172918.3.579.2.109848-96-0591Gpnylcc457013491 2.840.1.808056.3.579.2.235586-78-2382Isgynqk82395831 2.0.1.173474.3.579.2.716773-42-8365Wtrnpnj62910275 2.840.1.073507.3.579.2.288692-39-1945Hawsmue03147001 2.0.1.561216.3.579.2.944878-25-1530Ungvdkz86067500 2.840.1.692759.3.579.2.354219-69-8719Bziicjw40290026 2.0.1.747581.3.579.2.393043-25-5579Pfdxjnp84198248 2.0.1.836886.3.579.2.421011-54-2501Xrgchpz81317831 2.0.1.550850.3.579.2.017054-32-6274Dxgzcjj5296038 2.840.1.297055.3.579.2.757400-89-2337Wtqqrpj0981345 2.840.1.069289.3.579.2.241269-48-7654Qouacqd1610194 2.16.840.1.651766.3.579.2.695815-16-9403Cgidgel8934747 2.16.840.1.132356.3.579.2.232317-49-0650Euxldjo1583127 2..840.1.066197.3.579.2.575491-34-7554Fcpjzdx8636992 2.840.1.913943.3.579.2.145644-51-6324Idbqlgs6859316 2..840.1.382382.3.579.2.1259 [id number] 1959Medicare [id number] 2.16.840.1.123781.3.579.2.531 Social History DateTypeDetailFacilityUnknown if ever smokedSmith Center [employer] Other Start: 05-11-2024 End: 65-92-4904Xgy Assigned At BirthNocrossroads regional medical center [employer] Other Start: 12-09-2023 End: 05-60-2174Dihvfwr smoking status NHISSmokes tobacco dailyNOMS Healthcare History of tobacco useCigarette SmokerNOMS HealthcareStart: 12-09-2023 End: 09-83-6692Lvtvubs use and exposureSmokeless tobacco non-userN[facility]S Healthcare Start: 05-11-2024 End: 11-33-2640Hlqgwwqqp beverage intakeLifetime non-drinker (finding)[facility] HealthcareStart: 05-11-2024 End: 84-30-7163Iruarkz of Social functionNOMS HealthcareStart: 64-04-4585Ochwucu CommentCaffeine intake : chocolateNOMS HealthcareStart: 00-38-9439Euk assigned at birthNot on fileNOMS HealthcareTobacco smoking status NHISTobacco smoking consumption unknownProMedimn Health SystemStart: 47-45-8664ApyqnlbpfViwphfb ProMedicEly-[facility]enson [facility] SystemStart: 26-15-5903JiiMrpj (finding)[facility] Start: 55-38-1582Ecb Assigned At [facility] Start: 07-11-2025 End: 64-30-6702Enzlvixob beverage intakeEx-drinker (finding)[facility] Propertygatetart: 67-11-8619Vjlwody CommentsoberProSt. Vincent Hospital System Goals DatePatient GoalDesired Activity/StatePersonal health goal Functional Status VgogTivsffuzvqPbqhsfOegroqmw35-62-5252Wxhvqoo Health Questionnaire 2 item (PHQ- 2) [Reported][facility] CareQxvsuzocvl57-45-7475Tjquvgr Health Questionnaire (PHQ) [Reported][facility] CareDwznmingns76-26-9967Gkhaoct Health Questionnaire 2 item (PHQ-2) [Reported][facility] CareNkaypitqfy59-43-2286TCJ-7 quick depression assessment panel [Reported.PHQ][facility] CareGnpehkyzfo14-29-4094Mzikeus Health Questionnaire 2 item (PHQ- 2) [Reported][facility] CareFrteklcmtv42-79-4272GWZ-2 quick depression assessment panel [Reported.PHQ][facility] CareNwnxuuypnq61-68-3031Odwmikj Health Questionnaire 2 item (PHQ- 2) [Reported][facility] CareVmvjslieca57-80-9659MOM-9 quick depression assessment panel [Reported.PHQ][facility] CareFzyogccysx86-70-9294Rlquvkd Health Questionnaire 2 item (PHQ- 2) [Reported][facility] CareJyqrkjbwfs89-78-6812Fumtxhc Health Questionnaire 2 item (PHQ- 2) [Reported][facility] Clinical Notes 08-04-2023 to 07-26-2025 Note Date & MwdtOptgXdudjyaa80-58-8023 Telephone encounter Note* Telephone Encounter - Letty Bui - 07/26/2025 1:07 PM EDT Patient called in stating that he was missing a few medications that he was supposed to be prescribed after today's visit with Dr. Galo. He says that he is missing the magnesium glycinate and also alpha lipoic acid medication. [facility] [place] Please advise. [facility] CareEywwawoveh07-22-7569 Miscellaneous Notes* Telephone Encounter - Letty Bui - 07/26/2025 1:07 PM EDT Patient called in stating that he was missing a few medications that he was supposed to be prescribed after today's visit with Dr. Galo. He says that he is missing the magnesium glycinate and also alpha lipoic acid medication. [facility] [place]. Please advise. documented in this [facility]10-20-2025 Telephone encounter Note* Telephone Encounter - Adeola Suarez - 07/24/2025 10:18 AM EDT Pt is calling to fu about npq that was filled out for Dr. Galo last week. He is concerned becausehe has lost a significant amount of weight and would like to get checked out mini. [facility] CarePjrvpvzfyk98-82-7297 Miscellaneous Notes* Telephone Encounter - Adeola Suarez - 07/24/2025 10:18 AM EDT Pt is calling to fu about npq that was filled out for Dr. Galo last week. He is concerned becausehe has lost a significant amount of weight and would like to get checked out mini. documented in this [facility]10-17-2025 Miscellaneous Notes* Telephone Encounter - Leny Madsen RN - 07/21/2025 3:07 PM EDT Attempted to return patient's call about what he could do and what medications he could take for knee arthritis. No voicemail was set up. documented in this [facility]10-17-2025 Telephone encounter Note* Telephone Encounter - Leny Madsen RN - 07/21/2025 3:07 PM EDT Attempted to return patient's call about what he could do and what medications he could take for knee arthritis. No voicemail was set up. [facility]10-15-2025 History of Present illness Narrative* Gabi Omalley PA-C - 07/19/2025 10:45 AM EDT [facility] [address] [place] [address] Patient: Ole Stephens Sex: male : 1965 Age: 59 y.o. PCP: ALEXANDER LOPEZ MD 07/19/2025 Ole Stephens is here for a(n) post [...] 0% relief continuing Pain scale after treatment: 9/10 Chief Complaint Patient presents with Back Pain [...] Anxiety disorder, unspecified 12/09/2009 Bipolar 2 disorder ([facility]) 12/06/2009 2003 Chronic bilateral thoracic back pain Chronic idiopathic constipation 12/09/2023 Chronic pain disorder Constipation Depressive disorder 12/09/2009 Drug abuse ([facility]) 12/06/2009 denies since 2005 Esophageal reflux 07/01/2023 ETOH abuse 12/06/2009 denies since 2005 External hemorrhoid, bleeding 12/09/2023 History of drug abuse in remission ([facility]) 12/09/2023 Hypothyroidism 07/01/2023 Joint pain Loss of appetite 07/01/2023 Low back pain Mixed hyperlipidemia 07/01/2023 Murmur Muscle spasm Nausea & vomiting Orthostatic hypotension 12/15/2009 Palpitations 12/09/2009 Seizure ([facility] [place]) 07/01/2023 Vitamin B12 deficiency 07/01/2023 Weight loss Past Surgical History: Procedure Laterality Date CHOLECYSTECTOMY HERNIA REPAIR inguinal hernia INJECTION BLOCK NERVE MEDIAL BRANCH Bilat T 3/4, 4/5 Bilateral 06/23/2025 Performed by Kota Petty MD at [facility] INJECTION BLOCK NERVE MEDIAL BRANCH Bilat T 3/4, 4/5 Bilateral 05/19/2025 Performed by Kota Petty MD at [facility] NOSE SURGERY Allergies Allergen Reactions Penicillins Swelling [...] physical exam findings noted above and the patient s description of refractory pain in a neuropathic distribution that is not relieved by change in body position and interferes with the patient s activities of daily living Follow up after [...] performed theabove service. Steffi Israel RN 07/19/25 [id number] Steffi Israel RN 07/19/25 1207 Gabi Omalley PA-C 07/19/25 [id number] documented in this encounterC[facility] HospitalTripsByTips10-15-2025 Instructions* Patient Instructions* Steffi Israel RN - 07/19/2025 10:45 AM EDT Call our office to notify us of the date MRI is scheduled. You will then be scheduled for a follow up with our office so that the provider can discuss your MRI results and treatment plan. documented in this encounterMer[facility] Miscellaneous Notes* Telephone Encounter - Karie Niko - 07/18/2025 9:53 AM EDT Ole called the office and stated he wished to cancel his colonoscopy and egd scheduled for 07/20/[address] Castro. He does not wish to reschedule at this time. I informed patient he will need another consult if he chooses to wait past 30 days to reschedule. * Telephone Encounter - ROZINA Blair - 07/18/2025 9:53 AM EDT [facility] Surgery Coordinator @ [facility] was called and patient was removed from the surgery schedule. documented in this encounterMer[facility]10-14-[facility]25 Telephone encounter Note* Telephone Encounter - Karie Niko - 07/18/2025 9:53 AM EDT Ole called the office and stated he wished to cancel his colonoscopy and egd scheduled for 07/20/[address] Castro. He does not wish to reschedule at this time. I informed patient he will need another consult if he chooses to wait past 30 days to reschedule. [facility]10-14-2025 Telephone encounter Note* Telephone Encounter - ROZINA Blair - 07/18/2025 9:53 AM EDT [facility] Surgery Coordinator @ [facility] was called and patient was removed from the surgery schedule. [facility]10-09-2025 Miscellaneous Notes* Perioperative Nursing Note - Madelyn White RN - 07/13/2025 1:50 PM EDT Preoperative Education Checklist- General Surgery date: 07/20/25 Surgery time: 1100 Arrival time: 0900 1. Bring a photo ID and your insurance card with you the day of surgery. You will check in at the main lobby of the [facility]- registration desk is straight ahead as soon as you walk in. Tell them you are here for surgery. 2. If you have a Living Will/Durable Power of Ultrasonographer for Health Care that is not on file here, please bring a copy the day of surgery. 3. Please shower/bathe the night before surgery with the provided soap or wipes. Do not shower the morning of surgery- you will do use wipes when you arrive here at the hospital before getting into your surgical gown. Do not shave the area of your procedure for 2 days prior to your surgery. 4. NO powder, lotion, perfume/cologne, aftershave, make-up, deodorant, or hair products after you have bathed. 5. NO nail citizen of [place]/acrylic on at least one finger. If you are having a hand, wrist or foot surgery then all nail citizen of [place] and artificial/acrylic nails must be removed from that hand or foot. 6. Avoid ALL Aspirin and non-steroidal anti-inflammatory drugs and certain vitamins (Ibuprofen, Advil, Aleve, Excedrin, Meloxicam, Celebrex, fish/krill oil, etc.) for 7 days prior to surgery as instructed by your surgeon and/or your prescribing doctor. Tylenol IS ALLOWED. If you are on Ticlid, Xarelto, Eliquis, Pradaxa, Plavix or Coumadin, please check with your prescribing doctor for instructions for when to stop them. 7. If you use an inhaler, continue to use it routinely. 8. Nothing to eat or drink (not even water, gum, mints, or hard candy!) AFTER midnight prior to your surgery. 9. Take only medications that you are instructed to on the morning of surgery with a TINY SIP OF WATER. 10. Choose a responsible adult that will be able to drive you home when you are discharged from your hospital stay for your surgery and can stay with you in your home for 24 hours after your procedure. You must NOT drive any vehicle or operate any machinery for 24 hours after surgery. 11. When you dress for your appointment, please wear loose fitting clothing that is appropriate to accommodate your surgical area procedure. BRING WITH YOU ANY DEVICES YOU MAY NEED: ASHWINI hose, ice machine, sling/swath, brace or special shoe, oversized zip-up or button up shirt, CPAP machine if staying overnight. 12. Do NOT wear jewelry, watches, or any piercings or metal for surgery- leave these valuables and money at home. 13. Do NOT wear contact lenses for surgery- glasses are okay if needed. 14. The anesthesiologist will talk with you the day of surgery and will ask you to sign a Consent Form. 15. Refrain from smoking or any type of tobacco use for at least 8 hours and marijuana for 24 hoursprior to arrival for your surgery. 16. Notify your surgeon if you develop any illness before your surgery. 17. If you are staying overnight, please DO NOT BRING your home medications with you. 18. If you have any questions prior to surgery, please call the Preadmission Testing office at [phone], Mon.-Fri. 7 a.m.-3 p.m. Leave a voicemail if needed. Pre-Surgery Instructions: Medication Instructions sertraline (ZOLOFT) 100 mg tablet Stop taking 0 days prior to procedure atorvastatin (LIPITOR) 20 mg tablet Stop taking 0 days prior to procedure bacitracin zinc ointment Stop taking 0 days prior to procedure baclofen (LIORESAL) 10 mg tablet Stop taking 0 days prior to procedure diclofenac sodium (VOLTAREN) 1 % gel Stop taking 1 week prior to procedure gabapentin (NEURONTIN) 300 mg capsule Stop taking 0 days prior to procedure ibuprofen (MOTRIN) 600 mg tablet Stop taking 1 week prior to procedure levothyroxine (SYNTHROID, LEVOTHROID) 100 MCG tablet Continue as prescribed, take morning of procedure LORazepam (ATIVAN) 0.5 mg tablet Stop taking 0 days prior to procedure meloxicam (MOBIC) 15 mg tablet Stop taking 1 week prior to procedure sod sulf-pot chloride-mag sulf 1.479-0.188- 0.225 gram tablet Stop taking 0 days prior to procedure sucralfate (CARAFATE) 1 gram tablet Stop taking 0 days prior to procedure tiZANidine (ZANAFLEX) 4 mg tablet Stop taking 0 days prior to procedure traMADoL (ULTRAM) 50 mg tablet Stop taking 0 days prior to procedure documented in this encounterMer[facility]10-09-2025 Nurse Note* Perioperative Nursing Note - Madelyn White RN - 07/13/2025 1:50 PM EDT Preoperative Education Checklist- General Surgery date: 07/20/25 Surgery time: 1100 Arrival time: 0900 1. Bring a photo ID and your insurance card with you the day of surgery. You will check in at the main lobby of the [facility]- registration desk is straight ahead as soon as you walk in. Tell them you are here for surgery. 2. If you have a Living Will/Durable Power of Ultrasonographer for Health Care that is not on file here, please bring a copy the day of surgery. 3. Please shower/bathe the night before surgery with the provided soap or wipes. Do not shower the morning of surgery- you will do use wipes when you arrive here at the hospital before getting into your surgical gown. Do not shave the area of your procedure for 2 days prior to your surgery. 4. NO powder, lotion, perfume/cologne, aftershave, make-up, deodorant, or hair products after you have bathed. 5. NO nail citizen of [place]/acrylic on at least one finger. If you are having a hand, wrist or foot surgery then all nail citizen of [place] and artificial/acrylic nails must be removed from that hand or foot. 6. Avoid ALL Aspirin and non-steroidal anti-inflammatory drugs and certain vitamins (Ibuprofen, Advil, Aleve, Excedrin, Meloxicam, Celebrex, fish/krill oil, etc.) for 7 days prior to surgery as instructed by your surgeon and/or your prescribing doctor. Tylenol IS ALLOWED. If you are on Ticlid, Xarelto, Eliquis, Pradaxa, Plavix or Coumadin, please check with your prescribing doctor for instructions for when to stop them. 7. If you use an inhaler, continue to use it routinely. 8. Nothing to eat or drink (not even water, gum, mints, or hard candy!) AFTER midnight prior to your surgery. 9. Take only medications that you are instructed to on the morning of surgery with a TINY SIP OF WATER. 10. Choose a responsible adult that will be able to drive you home when you are discharged from your hospital stay for your surgery and can stay with you in your home for 24 hours after your procedure. You must NOT drive any vehicle or operate any machinery for 24 hours after surgery. 11. When you dress for your appointment, please wear loose fitting clothing that is appropriate to accommodate your surgical area procedure. BRING WITH YOU ANY DEVICES YOU MAY NEED: ASHWINI hose, ice machine, sling/swath, brace or special shoe, oversized zip-up or button up shirt, CPAP machine if staying overnight. 12. Do NOT wear jewelry, watches, or any piercings or metal for surgery- leave these valuables and money at home. 13. Do NOT wear contact lenses for surgery- glasses are okay if needed. 14. The anesthesiologist will talk with you the day of surgery and will ask you to sign a Consent Form. 15. Refrain from smoking or any type of tobacco use for at least 8 hours and marijuana for 24 hoursprior to arrival for your surgery. 16. Notify your surgeon if you develop any illness before your surgery. 17. If you are staying overnight, please DO NOT BRING your home medications with you. 18. If you have any questions prior to surgery, please call the Preadmission Testing office at [phone], Mon.-Fri. 7 a.m.-3 p.m. Leave a voicemail if needed. Pre-Surgery Instructions: Medication Instructions sertraline (ZOLOFT) 100 mg tablet Stop taking 0 days prior to procedure atorvastatin (LIPITOR) 20 mg tablet Stop taking 0 days prior to procedure bacitracin zinc ointment Stop taking 0 days prior to procedure baclofen (LIORESAL) 10 mg tablet Stop taking 0 days prior to procedure diclofenac sodium (VOLTAREN) 1 % gel Stop taking 1 week prior to procedure gabapentin (NEURONTIN) 300 mg capsule Stop taking 0 days prior to procedure ibuprofen (MOTRIN) 600 mg tablet Stop taking 1 week prior to procedure levothyroxine (SYNTHROID, LEVOTHROID) 100 MCG tablet Continue as prescribed, take morning of procedure LORazepam (ATIVAN) 0.5 mg tablet Stop taking 0 days prior to procedure meloxicam (MOBIC) 15 mg tablet Stop taking 1 week prior to procedure sod sulf-pot chloride-mag sulf 1.479-0.188- 0.225 gram tablet Stop taking 0 days prior to procedure sucralfate (CARAFATE) 1 gram tablet Stop taking 0 days prior to procedure tiZANidine (ZANAFLEX) 4 mg tablet Stop taking 0 days prior to procedure traMADoL (ULTRAM) 50 mg tablet Stop taking 0 days prior to procedure [facility]10-08-2025 Miscellaneous Notes* Telephone Encounter - Rufina Banks CNA - 07/12/2025 2:39 PM EDT Patient calls to report he has ro have a EGD 07/20/25 and will not be able to take Mobic for 7 days. He asks for something for pain. He said he was told he could take Tylenol. Advise patient that wastrue he could take Tylenol. Pateint raised his voice and says What I am just supposed to be in pain for 7 days? Again informed him he could take Tylenol and ask him to plese lower his voice. He says I am done talking to you and ends call abruptly. * Telephone Encounter - Gabi Omalley PA-C - 07/12/2025 2:39 PM EDT Send letter for inappropriate behavior * Telephone Encounter - Steffi Israel RN - 07/12/2025 2:39 PM EDT Done documented in this encounterMer[facility]10-08-2025 Telephone encounter Note* Telephone Encounter - Rufina Banks CNA - 07/12/2025 2:39 PM EDT Patient calls to report he has ro have a EGD 07/20/25 and will not be able to take Mobic for 7 days. He asks for something for pain. He said he was told he could take Tylenol. Advise patient that wastrue he could take Tylenol. Pateint raised his voice and says What I am just supposed to be in pain for 7 days? Again informed him he could take Tylenol and ask him to plese lower his voice. He says I am done talking to you and ends call abruptly. [facility]10-08-2025 Telephone encounter Note* Telephone Encounter - Gabi Omalley PA-C - 07/12/2025 2:39 PM EDT Send letter for inappropriate behavior [facility]10-08-2025 Telephone encounter Note* Telephone Encounter - Steffi Israel RN - 07/12/2025 2:39 PM EDT Done [facility]10-07-2025 History of Present illness Narrative* Monica Ortiz APRN-SAEID - 07/11/2025 9:00 AM EDT Images from the original note were not included. Chief Complaint: Weight loss History of Present Illness Ole Stephens is a 59 y.o. male who presents to the office for unintentional weight loss. He states he has lost 30 lb over the past year. He states he has no appetite. The only thing he is able to hold down is yogurt. He has nausea, vomiting and heartburn. He also reports constipation and intermittent left-sided abdominal pain that started 7 months ago. The pain does not resolve after he has a bowel movement. He drinks an increased amount of caffeine at times and also smokes marijuana. He has been taking meloxicam and ibuprofen for his back. He does not drink alcohol. He takes Pepto-Bismol and Tums with no relief. He has never had an EGD or colonoscopy. Review of Systems Constitutional: Positive for appetite change and unexpected weight change. Negative for fever. HENT: Negative for trouble swallowing. Respiratory: Negative for shortness of breath. Cardiovascular: Negative for chest pain. Gastrointestinal: Positive for nausea, vomiting, abdominal pain and constipation. Negative for diarrhea and blood in stool. Genitourinary: Negative for dysuria and difficulty urinating. Musculoskeletal: Negative for gait problem. Skin: Negative for rash and wound. Neurological: Negative for dizziness, weakness and light-headedness. Hematological: Does not bruise/bleed easily. Psychiatric/Behavioral: Negative for confusion. Past Medical History: Diagnosis Date Anxiety disorder, unspecified 12/09/2009 Bipolar 2 disorder ([facility]) 12/06/2009 2003 Chronic bilateral thoracic back pain Chronic idiopathic constipation 12/09/2023 Chronic pain disorder Constipation Depressive disorder 12/09/2009 Drug abuse ([facility]) 12/06/2009 denies since 2005 Esophageal reflux 07/01/2023 ETOH abuse 12/06/2009 denies since 2005 External hemorrhoid, bleeding 12/09/2023 History of drug abuse in remission ([facility]) 12/09/2023 Hypothyroidism 07/01/2023 Joint pain Loss of appetite 07/01/2023 Low back pain Mixed hyperlipidemia 07/01/2023 Murmur Muscle spasm Nausea & vomiting Orthostatic hypotension 12/15/2009 Palpitations 12/09/2009 Seizure ([facility]) 07/01/2023 Vitamin B12 deficiency 07/01/2023 Weight loss Past Surgical History: Procedure Laterality Date CHOLECYSTECTOMY HERNIA REPAIR inguinal hernia INJECTION BLOCK NERVE MEDIAL BRANCH Bilat T 3/4, 4/5 Bilateral 06/23/2025 Performed by Kota Petty MD at [facility] INJECTION BLOCK NERVE MEDIAL BRANCH Bilat T 3/4, 4/5 Bilateral 05/19/2025 Performed by Kota Petty MD at [facility] NOSE SURGERY Allergies Allergen Reactions Penicillins Swelling localized to the site of injection Other Reaction(s): Unknown localized to the site of injection Current Outpatient Medications: atorvastatin (LIPITOR) 20 mg tablet, Take 1 tablet (20 mg total) by mouth in the morning., Disp: , Rfl: bacitracin zinc ointment, Apply 1 Application topically in the morning and 1 Application before bedtime., Disp: 120 g, Rfl: 0 baclofen (LIORESAL) 10 mg tablet, Take 1 tablet (10 mg total) by mouth 2 (two) times a day as needed for muscle spasms., Disp: 60 tablet, Rfl: 1 diclofenac sodium (VOLTAREN) 1 % gel, Apply 2 g topically in the morning and 2 g at noon and 2 g inthe evening and 2 g before bedtime., Disp: 100 g, Rfl: 0 gabapentin (NEURONTIN) 300 mg capsule, Take 1 capsule (300 mg total) by mouth 3 (three) times a day., Disp: 90 capsule, Rfl: 1 ibuprofen (MOTRIN) 600 mg tablet, Take 1 tablet (600 mg total) by mouth every 6 (six) hours as needed for pain., Disp: 30 tablet, Rfl: 0 levothyroxine (SYNTHROID, LEVOTHROID) 100 MCG tablet, Take 1 tablet (100 mcg total) by mouth in themorning., Disp: , Rfl: LORazepam (ATIVAN) 0.5 mg tablet, Take 1 tablet (0.5 mg total) by mouth 2 (two) times a day as needed for anxiety., Disp: , Rfl: meloxicam (MOBIC) 15 mg tablet, Take 1 tablet (15 mg total) by mouth in the morning., Disp: 30 tablet, Rfl: 1 mirtazapine (REMERON) 30 mg tablet, Take 1 tablet (30 mg total) by mouth nightly., Disp: , Rfl: sucralfate (CARAFATE) 1 gram tablet, Take 1 tablet (1 g total) by mouth in the morning and 1 tablet(1 g total) in the evening. Take before meals., Disp: , Rfl: tiZANidine (ZANAFLEX) 4 mg tablet, Take 1 tablet (4 mg total) by mouth every 8 (eight) hours as needed for muscle spasms. TAKE 1 TABLET(4 MG) BY MOUTH EVERY 8 HOURS NEEDED FOR MUSCLE SPASMS, Disp:, Rfl: traMADoL (ULTRAM) 50 mg tablet, Take 2 tablets (100 mg total) by mouth every 6 (six) hours as needed., Disp: , Rfl: sod sulf-pot chloride-mag sulf 1.479-0.188- 0.225 gram tablet, Please see instructional sheet givenby physicians office., Disp: 24 tablet, Rfl: 0 Social History Socioeconomic History Marital status: Single Spouse name: Not on file Number of children: Not on file Years of education: Not on file Highest education level: Not on file Occupational History Not on file Tobacco Use Smoking status: Every Day Types: Cigarettes Smokeless tobacco: Never Substance and Sexual Activity Alcohol use: Not Currently Comment: sober Drug use: Yes Types: Marijuana Sexual activity: Defer Other Topics Concern Not on file Social History Narrative Not on file Social Drivers of Health Financial Resource Strain: Not on file Food Insecurity: No Food Insecurity (07/11/2025) Hunger Screening Food Insecurity - Worry: Never True Food Insecurity - Inability: Never True Transportation Needs: Not on file Physical Activity: Not on file Stress: Not on file Social Connections: Not on file Interpersonal Safety: Not on file Housing Instability: Not on file Family History Problem Relation Age of Onset Hypertension Mother Diabetes Father Hypertension Father Objective Physical Exam Constitutional: General: He is not in acute distress. Comments: Underweight HENT: Head: Normocephalic and atraumatic. Mouth/Throat: Mouth: Mucous membranes are moist. Eyes: Pupils: Pupils are equal, round, and reactive to light. Cardiovascular: Rate and Rhythm: Normal rate. Pulmonary: Effort: Pulmonary effort is normal. No respiratory distress. Abdominal: General: There is no distension. Palpations: Abdomen is soft. There is no mass. Tenderness: There is abdominal tenderness. There is no guarding. Comments: Mild left-sided abdominal tenderness Musculoskeletal: General: Normal range of motion. Skin: General: Skin is warm and dry. Neurological: Mental Status: He is alert and oriented to person, place, and time. Mental status is at baseline. Vital Signs: Blood pressure 102/53, pulse 60, height 175.3 cm (5' 9 ), weight 51.8 kg (114 lb 3.2 oz). Respiratory Source: No data recorded Admission Weight: Weight: 51.8 kg (114 lb 3.2 oz) Labs No results found for: WBC , HGB , HCT , MCV , PLT No results found for: GLU , CALCIUM , NA , K , CO2 , CL , BUN , CREATININE No results found for: AMYLASE No results found for: LIPASE No results found for: ALT , AST , GGT , ALKPHOS , LABBILI No results found for: INR , PROTIME Assessment Unintentional weight loss Nausea and vomiting rule out gastritis, ulcer Intermittent left-sided abdominal pain Marijuana use Plan Avoid NSAIDs especially on empty stomach. Encouraged marijuana cessation, however, patient states he is not going to stop smoking. Schedule EGD and colonoscopy. Evaluation included: Preparing to see the patient (e.g., review of tests) Obtaining and/or reviewing separately obtained history Performing a medically appropriate examination and/or evaluation Counseling and educating the patient/family/caregiver Referring and communicating with other health healthcare specialist Weight loss [R63.4] SHERLYN GOMEZ [facility] General Surgery [place] This note was created with the assistance of a speech recognition program. While intending to generate a timely document that accurately reflects the content of the visit, no guarantee can be provided that every grammatical or spelling mistake has been or will be identified or corrected. Thank you for your understanding. SHERLYN Gmoez 07/11/25 1352 documented in this encounterMercy Health [facility]09-23-2025 Miscellaneous Notes* Telephone Encounter - Steffi Israel RN - 06/27/2025 1:36 PM EDT Patient left message requesting Meloxicam refill. Prescription signed 05/23/2025 has 1 refill. Call placed to patient to inform him of this information and to advise him to call his pharmacy. PVU documented in this encounterMercy Health [facility] Center09-23-2025 Telephone encounter Note* Telephone Encounter - Steffi Israel RN - 06/27/2025 1:36 PM EDT Patient left message requesting Meloxicam refill. Prescription signed 05/23/2025 has 1 refill. Call placed to patient to inform him of this information and to advise him to call his pharmacy. PVU [facility]09-22-2025 Telephone encounter Note* Telephone Encounter - SHENG Carrasco - 06/26/2025 2:25 PM EDT Request was for Xanax, Alprazolam. Pt does not take this medication. OARRS reviewed. Lorazepam [facility]. [facility] [id number] Miscellaneous Notes* Telephone Encounter - SHENG Carrasco - 06/26/2025 2:25 PM EDT Request was for Xanax, Alprazolam. Pt does not take this medication. OARRS reviewed. Lorazepam sent. documented in this encounterUniversity of Missouri Health [id number] Miscellaneous Notes* Telephone Encounter - Stacie Carranza RN - 06/23/2025 12:37 PM EDT Pt calls with c/o pain at injection site and bilateral shoulder blades are sore. Educated pt that injection site pain is to be expected and for pain control he can use OTC treatments such as NSAIDs, tylenol, topical pain relievers such as creams/gels, patches, heat/ice. PVU documented in this encounterMercy [facility]09-19-2025 Telephone encounter Note* Telephone Encounter - Stacie Carranza RN - 06/23/2025 12:37 PM EDT Pt calls with c/o pain at injection site and bilateral shoulder blades are sore. Educated pt that injection site pain is to be expected and for pain control he can use OTC treatments such as NSAIDs, tylenol, topical pain relievers such as creams/gels, patches, heat/ice. PVU [facility]09-17-2025 History of Present illness Narrative* Haley Morrell, CATALOG LIBRARIAN - 06/21/2025 11:30 AM EDT Images from the original note were not included. Subjective Patient ID: Ole Stephens is a 59 y.o. male who presents for No chief complaint on file.. Ole presents today for issues with fluid around his heart. Pain management will not do anythinguntil they speak with a provider. He see's pain management at [facility] in [place]. Pt needs surgical clearance injection. See echo [...] effusion. Pt does not want to pursue grinder machine setter at this time. WBC 9.0 Hgb 12.8 [...] No follow-ups on file. documented in this encounterUniversity of Missouri Health [id number] Miscellaneous Notes* Telephone Encounter - Steffi Israel RN - 06/16/2025 1:40 PM EDT Patient called office today to report that he was seen by cardiology and placed on new medications.He states he had an echo that showed water around my heart . New medications include 40 mg Prednisone taper, Carafate, Doxycycline (started 2 days ago), and a steroid cream that he has not moss picker yet from the pharmacy. Doxy and topical is for a skin infection on his chin. Patient is scheduled for Bilateral T 3/4 4/5 MBB 06/23/2025. * Telephone Encounter - Gabi Omalley PA-C - 06/16/2025 1:40 PM EDT We will need cardio clearance prior to procedure * Telephone Encounter - Steffi Israel RN - 06/16/2025 1:40 PM EDT Call placed to patient to obtain the name of patient's grinder machine setter. He states he does not have a grinder machine setter. Patient's PCP, Haley Morrell NP, ordered the [...] be made aware that he has no grinder machine setter and that his PCP was the ordering [...] my heart . * Telephone Encounter - Gabi Omalley PA-C - 06/16/2025 1:40 PM EDT If PCP will clear him that is sufficient * Telephone Encounter - Steffi Israel RN - 06/16/2025 1:40 PM EDT Clearance letter sent to his PCP, Haley Ahsan CATALOG LIBRARIAN. * Telephone Encounter - Stacie Carranza RN [...] Will try again later. documented in this encounterCleveland Clinic Lutheran HospitalCast Iron Systems [facility] MichiganVctyos84-79-1720 Telephone encounter Note* Telephone Encounter - Steffi Israel RN - 06/16/2025 1:40 PM EDT Patient called office today to report that he was seen by cardiology and placed on new medications.He states he had an echo that showed water around my heart . New medications include 40 mg Prednisone taper, Carafate, Doxycycline (started 2 days ago), and a steroid cream that he has not moss picker yet from the pharmacy. Doxy and topical is for a skin infection on his chin. Patient is scheduled for Bilateral T 3/4 4/5 MBB 06/23/2025. [facility]09-12-2025 Telephone encounter Note* Telephone Encounter - Gabi Omalley PA-C - 06/16/2025 1:40 PM EDT We will need cardio clearance prior to procedure [facility]09-12-2025 Telephone encounter Note* Telephone Encounter - Steffi Israel RN - 06/16/2025 1:40 PM EDT Call placed to patient to obtain the name of patient's grinder machine setter. He states he does not have a grinder machine setter. Patient's PCP, Haley Morrell NP, ordered the echo. Patient's upcoming procedure is without sedation. How would you like to proceed? [facility]09-12-2025 Telephone encounter Note* Telephone Encounter - Steffi Israel RN - 06/16/2025 1:40 PM EDT Patient called office and repeated information noted in previous encounters related to echo results. He states he has to have his injection this week as he is so much pain. Patient is informed that provider will be made aware that he has no grinder machine setter and that his PCP was the ordering provider. Patient states that if he not able to have his scheduled injection this week he will go to the ED. Jose ended the call. [facility]09-12-2025 Telephone encounter Note* Telephone Encounter - Steffi Israel RN - [...] a little water around my heart . [facility]09-12-2025 Telephone encounter Note* Telephone Encounter - Gabi Omalley PA-C - 06/16/2025 1:40 PM EDT If PCP will clear him that is sufficient [facility]09-12-2025 Telephone encounter Note* Telephone Encounter - Steffi Israel RN - 06/16/2025 1:40 PM EDT Clearance letter sent to his PCP, Haley Morrell NP. [facility]09-12-2025 Telephone encounter Note* Telephone Encounter - Stacie Carranza RN - 06/16/2025 1:40 PM EDT Resent surgical clearance to haley morrell. They did not send it back. They sent a referral, documentation stating pt requested referral [facility]09-12-2025 Telephone encounter Note* Telephone Encounter - Stacie Carranza RN - [...] for Bilateral T 3/4, 4/5 MBB, local. [facility]09-12-2025 Telephone encounter Note* Telephone Encounter - Stacie Carranza RN - 06/16/2025 1:40 PM EDT Clearance received from PCP. Called pt to inform him and that he can proceed with procedure. No answer. Will try again later. [facility]09-11-2025 History of Present illness Narrative* Haley Morrell NP - 06/15/2025 4:00 PM EDT Images [...] General Surgery; Future Await EGD Pericardial effusion ([facility]) - predniSONE (Deltasone) 10 MG tablet; Take [...] No follow-ups on file. documented in this [facility]09-04-2025 Telephone encounter Note* Telephone Encounter - SHENG Carrasco - 06/08/2025 4:52 PM EDT OARRS reviewed, Rx sent into patient's pharmacy. [facility] CareEflnmgzhiy84-10-3251 Miscellaneous Notes* Telephone Encounter - SHENG Carrasco - 06/08/2025 4:52 PM EDT OARRS reviewed, Rx sent into patient's pharmacy. * Telephone Encounter - Yuly Chan - 06/08/2025 12:58 PM EDT Ole stopped in asking for a refill on LORazepam (Ativan) 1 MG to [facility] in [place] documented in this [facility]09-04-2025 Telephone encounter Note* Telephone Encounter - Yuly Chan - 06/08/2025 12:58 PM EDT Ole stopped in asking for a refill on LORazepam (Ativan) 1 MG to [facility] [place] [facility] [id number] History of Present illness Narrative* Gabi Omalley PA-C - 06/07/2025 1:00 PM EDT [facility] [address] [place] [address] Patient: Ole Stephens Sex: male : 1965 Age: 59 y.o. PCP: CARLOS ENRIQUE MAGUIRE MD 06/07/2025 Ole Stephens is here for a(n) post procedure follow up 05/09/2025 Bilateral T3/4, 4/5 MBB with 30 min of relief 100% then slowly increased following that. Date of onset of pain: chronic , pain has lasted greater than 3 months. Pain scale before treatment: 10 Pre-op pain score: 8/10 Post-op pain score: [...] Anxiety disorder, unspecified 12/09/2009 Bipolar 2 disorder ([facility]) 12/06/20092002 Chronic bilateral thoracic back pain Chronic idiopathic constipation 12/09/2023 Chronic pain disorder Depressive disorder 12/09/2009 Drug abuse ([facility]) 12/06/2009 denies since 2005 Esophageal reflux 07/01/2023 ETOH abuse 12/06/2009 denies since 2005 External hemorrhoid, bleeding 12/09/2023 History of drug abuse in remission ([facility]) 12/09/2023 Hypothyroidism 07/01/2023 Joint pain Loss of appetite 07/01/2023 Low back pain Mixed hyperlipidemia 07/01/2023 Murmur Muscle spasm Orthostatic hypotension 12/15/2009 Palpitations 12/09/2009 Seizure ([facility]) 07/01/2023 Vitamin B12 deficiency 07/01/2023 Past Surgical History: Procedure Laterality Date INJECTION BLOCK NERVE MEDIAL BRANCH Bilat T 3, 4/5 Bilateral 05/19/2025 Performed by Kota Petty MD at [facility] Allergies Allergen Reactions Penicillins Swelling localized [...] Omalley PA-C 06/07/25 1329 documented in this encounterMer[facility]09-[facility]-2025 Instructions* Patient Instructions* Rufina Banks CNA - 06/07/2025 1:00 PM [...] the nearest emergency room. 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 GERD discussed with the patient. Pt [...] No follow-ups on file. documented in this encounterUniversity of Missouri Health CareTyzzlofier02-78-2020 Miscellaneous Notes* Telephone Encounter - Liss Moralez RN - 05/22/2025 3:56 PM EDT Patient had a bilateral T3/4, 4/5 on 05/19/25, he only received 100% relief x 30 minutes. 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 Advised patient, will send note to provider, but to follow up as scheduled and reminded him to bring his pain diary. PVU * Telephone Encounter - Steffi Israel RN - 05/22/2025 3:56 PM EDT 13:00 Patient called office to request refill [...] has not tried any other muscle relaxer. * Telephone Encounter - Sarah Andrews - 05/22/2025 3:56 PM EDT Pt called in and left a voicemail requesting a different muscle relaxer. He stated that the muscle relaxer he is taking now does nothing but put him to sleep documented in this encounterMer[facility]08-[facility]-2025 Telephone encounter Note* Telephone Encounter - Liss Moralez RN - 05/22/2025 3:56 PM EDT Patient had a bilateral T3/4, 4/5 on 05/19/25, he only received 100% relief x 30 minutes. 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 Advised patient, will send note to provider, but to follow up as scheduled and reminded him to bring his pain diary. PVU [facility]08-18-2025 Telephone encounter Note* Telephone Encounter - Steffi Israel RN - 05/22/2025 3:56 PM EDT 13:00 Patient called office to request refill [...] the original prescriber or to Gabi at [facility]. He states he has not tried any other muscle relaxer. [facility]08-18-2025 Telephone encounter Note* Telephone Encounter - Sarah Andrews - 05/22/2025 3:56 PM EDT Pt called in and left a voicemail requesting a different muscle relaxer. He stated that the muscle relaxer he is taking now does nothing but put him to sleep [facility]08-18-2025 Miscellaneous Notes* Telephone Encounter - Liss Moralez RN - 05/22/2025 3:51 PM EDT Last OV: 04/26/2025 Next OV: 06/07/2025 OARRS appropriate: Yes Last UDS: NA Pharmacy: [facility] Gabapentin was new on 04/26/25, patient requested refill of the Gabapentin and Mobic. documented in this encounterMercy Health Springfield [facility] Center08-18-2025 Telephone encounter Note* Telephone Encounter - Liss Moralez RN - 05/22/2025 3:51 PM EDT Last OV: 04/26/2025 Next OV: 06/07/2025 OARRS appropriate: Yes Last UDS: NA Pharmacy: [facility] Gabapentin was new on 04/26/25, patient requested refill of the Gabapentin and Mobic. [facility]08-18-2025 Telephone encounter Note* Telephone Encounter - SHENG Carrasco - 05/22/2025 3:01 PM EDT resent [facility] CareKqnhxerxex65-54-1515 Miscellaneous Notes* Telephone Encounter - SHENG Carrasco - 05/22/2025 3:01 PM EDT resent * Telephone Encounter - Yuly Chan - 05/22/2025 11:06 AM EDT Ole called and stated his meds got sent to [facility] but [facility] [place]. He asked that you res[facility] to [facility]. documented in this encounterUniversity of Missouri Health CareAzokzlmxpp82-51-0634 Telephone encounter Note* Telephone Encounter - Yuly Chan - 05/22/2025 11:06 AM EDT Ole called and stated his meds got sent to [facility] but he goes to [facility] [place]. He asked that you res[facility] it to [facility]. [facility] CareHvveoqwzbk13-86-2898 Telephone encounter Note* Telephone Encounter - SHENG Carrasco - 05/22/2025 10:38 AM EDT OARRS reviewed, Rx sent into patient's pharmacy. [facility] [id number] Miscellaneous Notes* Telephone Encounter - SHENG Carrasco - 05/22/2025 10:38 AM EDT OARRS reviewed, Rx sent into patient's pharmacy. * Telephone Encounter - Abi Diego - 05/22/2025 9:21 AM EDT LORazepam (Ativan) 1 MG tablet And [facility]adol [facility] [place] * Telephone Encounter - Chante Smith - 05/20/2025 3:06 PM EDT Per Leatha Arzate: I spoke with the patient. He has 30 day scripts for both of the medications. I believe he may be overtaking the meds and is now out of. I also educated him on the injection and what to expect afterwards. He was raising his voice over the phone. I reached out to Haley and she said they can't be filled. * Telephone Encounter - Chante Smith - 05/20/2025 1:51 PM EDT Pt called back and asked that the provider call him directly, he is very upset and in a lot of pain, call back number [phone]. * Telephone Encounter - Chante Smith - 05/20/2025 1:41 PM EDT Per Leatha Clinker: I'm not sure if he has a contract with pain mgt in regard to pain med. 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 I was reading his history in epic and he has a hx of drug abuse. I do not feel comfortable prescribing opioid medication Pt notified, states he will go to the ER * Telephone Encounter - Chante Smith - 05/20/2025 12:20 PM EDT Pt is calling because he just had injections with pain management in his back and he states he is in pain. He wants to know if he can get lorazepam and tramadol sent to [facility] in [place].States he is in severe pain and it is causing him anxiety. Call back number is [phone] documented in this encounterUniversity of Missouri Health CareQobzrvngqs94-32-7514 Telephone encounter Note* Telephone Encounter - Abi Diego - 05/22/2025 9:21 AM EDT LORazepam (Ativan) 1 MG tablet And tramadol [facility] [place] [facility] CareMqvkftvqvh65-58-2938 Telephone encounter Note* Telephone Encounter - Chante Smith - 05/20/2025 3:06 PM EDT Micheal Arzate: I spoke with the patient. He has 30 day scripts for both of the medications. I believe he may be overtaking the meds and is now out of. I also educated him on the injection and what to expect afterwards. He was raising his voice over the phone. I reached out to Haley and she said they can't be filled. [facility] CareVkcnzfcpbx53-81-3231 Telephone encounter Note* Telephone Encounter - Chante Smith - 05/20/2025 1:51 PM EDT Pt called back and asked that the provider call him directly, he is very upset and in a lot of pain, call back number [phone]. [facility] CareJrahkdewyl79-41-5104 Telephone encounter Note* Telephone Encounter - Chante Smith - 05/20/2025 1:41 PM EDT Per Leatha Arzate: I'm not sure if he has a contract with pain mgt in regard to pain med. 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 I was reading his history in [employer] and he has a hx of drug abuse. I do not feel comfortable prescribing opioid medication Pt notified, states he will go to the ER [place] [id number] Telephone encounter Note* Telephone Encounter - Chante Smith - 05/20/2025 12:20 PM EDT Pt is calling because he just had injections with pain management in his back and he states he is in pain. He wants to know if he can get lorazepam and tramadol sent to [facility] in [place].States he is in severe pain and it is causing him anxiety. Call back number is [phone] [place] [id number] Evaluation note* Diagnosis Onset Date Resolution Status Admit Date Impetigo acuteAugust 2024 9:43am [facility] Work Phone: 1(973) 663-301708-13-2025 Evaluation note* Diagnosis Onset Date Resolution Status Admit Date Impetigo acuteAugust 2024 9:43amPuncture wound of left handnoneactiveSeptember 2024 9:02am [facility] Work Phone: 1(331) 992-411508-13-2025 Evaluation note* Diagnosis Onset Date Resolution Status Admit Date Impetigo acuteAugust 2024 9:43amPuncture wound of left handnoneactiveSept2024 9:02amFolliculitisacuteSept2024 10:03amSkin infectionacute Racheal 2024 10:03am [facility] Work Phone: 1(345) 497-360507-23-2025 History of Present illness Narrative* Gabi Omalley PA-C - 04/26/2025 8:45 AM EDT [facility] [address] [place] [address] Patient: Ole Stephens Sex: male : 1965 Age: 59 y.o. PCP: CARLOS ENRIQUE MAGUIRE MD 04/26/2025 Ole Stephens is here for a(n) follow up appointment after starting Mobic 15mg daily whichis providing some relief for his upper back pain. Patient also started Physical Therapy in [place] which provides only very temporary relief before [...] Anxiety disorder, unspecified 12/09/2009 Bipolar 2 disorder ([facility]) 12/06/20092002 Chronic bilateral thoracic back pain Chronic idiopathic constipation 12/09/2023 Depressive disorder 12/09/2009 Drug abuse ([facility]) 12/06/2009 denies since 2005 Esophageal reflux 07/01/2023 ETOH abuse 12/06/2009 denies since 2005 External hemorrhoid, bleeding 12/09/2023 History of drug abuse in remission ([facility]) 12/09/2023 Hypothyroidism 07/01/2023 Loss of appetite 07/01/2023 Mixed hyperlipidemia 07/01/2023 Murmur Muscle spasm Orthostatic hypotension 12/15/2009 Palpitations 12/09/2009 Seizure ([facility]) 07/01/2023 Vitamin B12 deficiency 07/01/2023 History reviewed. [...] Omalley PA-C 04/26/25 0922 documented in this encounterCleveland Clinic Lutheran HospitalCast Iron Systems [facility] [id number] Instructions* Patient Instructions* Rufina Banks CNA - [...] the nearest emergency room. documented in this encounterMercy Health [facility]07-21-2025 Telephone encounter Note* Telephone Encounter - SHENG Carrasco - 04/24/2025 1:44 PM EDT OARRS reviewed, Rx sent into patient's pharmacy. [facility] CareEsvaqiyzer77-95-5369 Miscellaneous Notes* Telephone Encounter - SHENG Carrasco - 04/24/2025 1:44 PM EDT OARRS reviewed, Rx sent into patient's pharmacy. * Telephone Encounter - Jesusita Beck LPN - 04/24/2025 11:25 AM EDT I completed the prior auth on PHRQL and it came back that Prior auth not required . Spoke to pt and he is just asking for a refill. * Telephone Encounter - Yuly Chan - 04/24/2025 10:08 AM EDT Ole left a message stating he needed a prior auth done on his Tramadol so he can fill it. documented in this encounterUniversity of Missouri Health CareBmijokhmxe94-60-4463 Telephone encounter Note* Telephone Encounter - Jesusita Beck LPN - 04/24/2025 11:25 AM EDT I completed the prior auth on PHRQL and it came back that Prior auth not required . Spoke to pt and he is just asking for a refill. [facility] CareOxseyvjxct85-27-6527 Telephone encounter Note* Telephone Encounter - Yuly Chan - 04/24/2025 10:08 AM EDT Ole left a message stating he needed a prior auth done on his Tramadol so he can fill it. [facility] CareNtmxtwphko61-96-7896 Miscellaneous Notes* Telephone Encounter - SHENG Carrasco [...] a new prescription to be sent to [facility] in [place]. * Telephone Encounter - Abi Diego - 04/17/2025 4:22 PM EDT LORazepam (Ativan) 1 MG tablet [facility] documented in this encounterUniversity of Missouri Health CareBgnzhvukru07-51-7528 Telephone encounter Note* Telephone Encounter - SHENG [...] due to our office increasing the dosage. [place] [id number] Telephone encounter Note* Telephone Encounter - Yuly Chan - 04/18/2025 9:14 AM EDT Ole left a message stating hisLORazepam (Ativan) 1 MG could not be filled and the pharmacy stated it was waiting approval from the physician. He is asking for a new prescription to be sent to [facility] in [place]. [facility] CareYrisomohld80-84-4345 Telephone encounter Note* Telephone Encounter - Edith Contreras - 04/17/2025 5:06 PM EDT Pt called and he need refill of ativan [facility] CarePddnsldntq97-64-2564 Miscellaneous Notes* Telephone Encounter - Edith Contreras - 04/17/2025 5:06 PM EDT Pt called and he need refill of ativan documented in this encounterUniversity of Missouri Health CareOejojwntpn11-59-3103 Telephone encounter Note* Telephone Encounter - Abi Diego - 04/17/2025 4:22 PM EDT LORazepam (Ativan) 1 MG tablet [facility] [place] [address]Fgwokdycnj61-14-1771 Telephone encounter Note* Telephone Encounter - SHENG Carrasco - 04/10/2025 8:30 AM EDT OARRS reviewed, Rx sent into patient's pharmacy. [facility] CarePlmnhaojqt00-17-9775 Miscellaneous Notes* Telephone Encounter - SHENG Carrasco - 04/10/2025 8:30 AM EDT OARRS reviewed, Rx sent into patient's pharmacy. documented in this encounterUniversity of Missouri Health CareBaveyjsoqe03-78-5606 Telephone encounter Note* Telephone Encounter - SHENG Carrasco - 03/15/2025 3:12 PM EDT Spoke with patient. He would like imaging specifically of his ribs to make sure he did not break a rib. Rib series with chest PA x-ray order sent to [facility]. [facility] CareXmmsxerhye22-44-3741 Miscellaneous Notes* Telephone Encounter - SHENG Carrasco - 03/15/2025 3:12 PM EDT Spoke with patient. He would like imaging specifically of his ribs to make sure he did not break a rib. Rib series with chest PA x-ray order sent to [facility]. * Telephone Encounter - Abi Diego [...] of his ribs. documented in this encounterUniversity of Missouri Health CareJlczqevalm85-49-0456 Telephone encounter Note* Telephone Encounter - Abi [...] for another view of his ribs. [facility] [id number] History of Present illness Narrative* Gabi Omalley PA-C - 03/15/2025 12:00 PM EDT [facility] [address] [place] [address] Patient: Ole Stephens Sex: male : 1965 [...] Anxiety disorder, unspecified 12/09/2009 Bipolar 2 disorder ([facility]) 12/06/20092002 Chronic bilateral thoracic back pain Chronic idiopathic constipation 12/09/2023 Depressive disorder 12/09/2009 Drug abuse ([facility]) 12/06/2009 denies since 2005 Esophageal reflux 07/01/2023 ETOH abuse 12/06/2009 denies since 2005 External hemorrhoid, bleeding 12/09/2023 History of drug abuse in remission ([facility]) 12/09/2023 Hypothyroidism 07/01/2023 Loss of appetite 07/01/2023 Mixed hyperlipidemia 07/01/2023 Muscle spasm Orthostatic hypotension 12/15/2009 Palpitations 12/09/2009 Seizure ([facility]) 07/01/2023 Vitamin B12 deficiency 07/01/2023 History reviewed. [...] Omalley PA-C 03/15/25 1359 documented in this encounterMercy Health [facility] Center06-10-2025 Telephone encounter Note* Telephone Encounter - MORRIS VEGA - 03/14/2025 2:13 PM EDT Spoke with patient and he would like an x-ray done of his ribs due to back pain. He states his ribshurt all over when he coughs. He is to have back surgery and also see pain management on 03-15-25. Please avise [facility] CareZttvtbafuo06-49-0545 Miscellaneous Notes* Telephone Encounter - MORRIS VEGA [...] are very painful. documented in this encounterUniversity of Missouri Health CareJhzmwalfrt76-25-8811 Telephone encounter Note* Telephone Encounter - Abi Diego - 03/14/2025 11:04 AM EDT Patient wants to know if he can get an xray on his ribs he said that they are very painful. [facility] CareBelsuzmmzo37-38-8601 Telephone encounter Note* Telephone Encounter - Haley Morrell NP - 02/28/2025 12:06 PM EDT Pt needs his Tramadol and Ativan sent in. Both of these are an increase since last visit. I referred him to pain management for his back pain Ativan 1mg TID prn Tramadol 100mg every 6 hours as needed [facility] CareKpamrevich47-70-0637 Miscellaneous Notes* Telephone Encounter - Haley Morrell NP - 02/28/2025 12:06 PM EDT Pt needs his Tramadol and Ativan sent in. Both of these are an increase since last visit. I referred him to pain management for his back pain Ativan 1mg TID prn Tramadol 100mg every 6 hours as needed documented in this encounterUniversity of Missouri Health CareAjplcilxfd72-95-8540 History of Present illness Narrative* Haley Morrell NP - 02/28/2025 10:00 AM EDT Images [...] Yes Cognitive Screening Three Word Registration: Banana, [place], Chair Clock Drawing: Inability or Refusal to Draw Clock - 0 Three Word Recall: All 3 words correct - 3 Total Score (0-5 Points): 3 Pain Assessment Pain Score: 8 Advance Care Planning Do you have a living will?: Yes Do you have a medical power of immigration attorney?: Yes Objective : BP 112/76 Pulse [...] Visits Requested: 1 1. Reactive depression (situational) (CMS/HCC) Medication as directed. Verbalizes understanding of [...] depression. 18. [facility] Reviewed all relevant preventative [...] Medicare Wellness exams. Electronically signed by Haley Morrell NP on February 28, 2025 documented in this encounterUniversity of Missouri Health [id number] History of Present illness Narrative* SHENG Carrasco [...] Appointment As Scheduled. documented in this encounterUniversity of Missouri Health [id number] Telephone encounter Note* Telephone Encounter - Abi Diego - 01/26/2025 11:18 AM EDT traMADol (Ultram) 50 MG tablet GAYATRIS ANNALISAMONT [facility] [id number] Miscellaneous Notes* Telephone Encounter - Abi Diego - 01/26/2025 11:18 AM EDT traMADol (Ultram) 50 MG tablet [facility] [place] documented in this encounterUniversity of Missouri Health [id number] History of Present illness Narrative* MORRIS VEGA [...] Assessment/Plan No follow-ups on file. * Haley Morrell NP - 11/29/2024 11:00 AM EST Subjective [...] of treatment plan. documented in this encounterUniversity of Missouri Health [id number] History of Present illness Narrative* Michael Kong [...] No follow-ups on file. documented in this encounterUniversity of Missouri Health [id number] Instructions* Patient Instructions* Michael Kong NP - 11/09/2024 2:00 PM EST Refills sent today. documented in this [facility]01-10-2025 Telephone encounter Note* Telephone Encounter - Michael Kong NP - 10/14/2024 11:35 AM EST Please call the pt and notify that orthopedics recommended pain management. If he is ok with going to pain management please send the referral. [facility] [place] [facility] [id number] Miscellaneous Notes* Telephone Encounter - Michael Kong [...] pain management per ortho documented in this [facility]12-30-2024 Telephone encounter Note* Telephone Encounter - Marsha Schofield MA - 10/03/2024 9:27 AM EST Ortho office states they are denying the referral please refer to [facility] pain management per ortho [facility] [place] [facility] [id number] History of Present illness Narrative* Michael Kong [...] day pt is having microwave dinners like [employer] stated No problems with going to the [...] No follow-ups on file. documented in this [facility]12-26-2024 Instructions* Patient Instructions* Michael Kong NP - 09/29/2024 1:00 PM EST Norflex continues. Voltaren continues. Wellbutrin xl is started. Alprazolam is started x 10 days only. documented in this [facility]10-31-2023 Evaluation note* Encounter Date Diagnosis Assessment Notes [...] area. Pt understood agreed to treatment plan. [employer] Other Evaluation note* Diagnosis Hospital discharge follow-up- Primary Other follow-up examination Degenerative disc disease, thoracic Severe back pain Muscle spasm Spasm of muscle Reactive depression (situational) ([facility]) Dysthymic disorder Situational mixed anxiety and depressive disorder ([facility]) Weight loss Loss of weight [facility] Diagnosis Anxiety- Primary Anxiety state, unspecified Severe back pain Reactive depression (situational) ([facility]) Dysthymic disorder Mixed hyperlipidemia ([facility]) Mixed hyperlipidemia Hypothyroidism, unspecified ([facility]) Acute strain of neck muscle, initial encounter Acquired hypothyroidism ([facility]) Unspecified hypothyroidism Anorexia Anxiety disorder due to known physiological condition Bipolar affective disorder, current episode hypomanic ([facility]) Unspecified convulsions ([facility]) Bipolar disorder, in partial remission, most recent episode depressed ([facility]) Other psychoactive substance abuse, in remission ([facility]) Bipolar disorder, unspecified ([facility]) Bipolar disorder, unspecified Bipolar disorder, in partial remission, most recent episode mixed ([facility]) documented in this encounter [facility]* [...] thoracic back pain- Primary Reactive depression (situational) ([facility]) Dysthymic disorder Muscle spasm Spasm of muscle Vitamin B12 deficiency Other B-complex deficiencies Acquired hypothyroidism ([facility]) Unspecified hypothyroidism Mixed hyperlipidemia ([facility]) Mixed hyperlipidemia Orthostatic hypotension Weight loss Loss of weight Screening for prostate cancer Special screening for malignant neoplasm of prostate Seizure ([facility]) Other convulsions Palpitations Chronic idiopathic constipation Unspecified constipation Other specified anxiety disorders Bipolar disorder, in partial remission, most recent episode mixed ([facility]) History of drug abuse in remission History of ETOH abuse Persistent depressive disorder ([facility]) Routine general medical examination at health care [...] this [facility] Diagnosis Severe back pain [...] spondylosis without myelopathy documented in this encounter [facility] SystemEvaluation noteNo assessment information available [facility] Work Phone: Evaluation note* Diagnosis Anxiety Anxiety state, unspecified Severe back pain documented in this encounter [facility]* Diagnosis Severe back pain Anxiety Anxiety state, unspecified documented in this [facility]* Diagnosis Thoracic spondylosis without myelopathy Lumbar spondylosis Lumbosacral spondylosis without myelopathy documented in this encounter [facility]* Diagnosis SOB (shortness of breath)- [...] spondylosis without myelopathy documented in this encounter [facility]* Diagnosis Anxiety Anxiety state, unspecified [...] Diagnosis Weight loss- Primary Loss of weight Nausea and vomiting, unspecified vomiting type Marijuana abuse Nondependent cannabis abuse, unspecified documented [facility] Diagnosis Thoracic spine pain- Primary Pain in thoracic spine Thoracic spondylosis without myelopathy Lumbar spondylosis Lumbosacral spondylosis without myelopathy documented in this encounter [facility] SystemInstructionsNot on filedocumented in this encounter [facility] SystemInstructionsNot on filedocumented in this encounter [facility] SystemInstructionsNot on filedocumented in this encounter [facility] SystemInstructionsNot on filedocumented in this encounter [facility] SystemInstructionsNot on filedocumented in this encounter [facility] SystemInstructionsNot on filedocumented in this encounter [facility] SystemInstructionsNot on filedocumented in this encounter [facility] SystemReason for referral (narrative)No reason for referral information availableEast [facility] Work Phone: Summary Purpose Family History [...] 44am Puncture wound of left hand June d2024 9:02am Chief Complaint Admit Date Rash on Chin May 17, 2025 9: 43am wants tetanus, puncture on hand Septembe r 2024 9:02am infection on chin June 13, 2025 10:03am Sore on chin possible infected acne Sept ember 2024 11:05am Reason for Visit Admit Date Impetigo May 17, 2025 9: 43am Puncture wound of left hand June d2024 9:02am Folliculitis June 13, 2025 10:03am Skin infection June 13, 2025 10:03am Additional Source Comments (unrecognized sect ion and content) No Status Records FoundNo Status Records FoundNo Status Records FoundNo Status Records FoundNo Status Records FoundNo Status Records Found INFORMATION SOURCE (unrecogn ized section and content) DATE CREATED AUTHOR 12/07/2019 [facility] DATE CREATED AUTHOR AUTHOR'S ORGANIZ ATION 03/04/2025 [facility] DATE CREATED AUTHOR AUTHOR'S ORGANIZ ATION 07/13/2025 [facility] DATE CREATED AUTHOR AUTHOR'S ORGANIZ ATION 07/21/2025 [facility] DATE CREATED AUTHOR AUTHOR'S ORGANIZ ATION 07/24/[address] [facility] DATE CREATED AUTHOR AUTHOR'S ORGANIZ ATION 07/27/2025 [facility] EPIC REASON FOR VISIT (unrecogniz ed section and content) ReasonCommentsBack PainReasonCommentsMed RefillReasonOnset DateCommentsMed Idiedx0801/26/2025ReasonCommentsConstipationStates this has been going on forever and it he is taking Miralax with some relief. Has never triedanything else.Back PainAdmits lower back pain for 3 days. Describes pain as an ache, he can turn his back a certain way and it will crack and that will relieve the pain some. Rates pain 7/10. He has been taking a muscle relaxer, he has 2 on his med list and he is not sure which one he is taking and also diclofenac and tramadol. ReasonOnset DateCommentsMed Trpquk9904/17/2025ReasonOnset DateCommentsMed Refill 05/22/2025ReasonOnset DateCommentsMed Ffudvd5906/26/2025ReasonCommentsWeight Loss Weight loss, gastric pain, nausea, vomiting, dysphagia, constipation, referred by Haley Morrell CNPSpecialtyDiagnoses / ProceduresReferred By ContactReferred To ContactGeneral Surgery Diagnoses Weight loss Gastric pain Nausea and vomiting, unspecified vomiting type Dysphagia, unspecified type Procedures CT OFFICE OUTPATIENT VISIT 60-74 MINS HIGH MDM [id number] (SNOMED CT) - AMB REFERRAL TO GENERAL SURGERY Haley Morrell, MANAGER VAN-PNEUMATIC TOOL REPAIRER [address] [address] Phone: tel: fax: Gustavo Castro, DO [address] [place] [address] Phone: tel: fax: Referral IDStatusReasonStart DateExpiration DateVisits RequestedVisits [id number]/11/20253/[id number] DateCommentsAppointment Pykeoxd3607/24/2025ReasonOnset DateCommentsMed Jfvewt8907/26/2025 Care Teams (unrecognized sec tion and content) Team MemberRelationshipSpecialtyStart DateEnd Date Carlos Enrique Maguire MD [address] [address] [place] [address] PCP - ACO Reach02/26/23 Carlos Enrique Maguire MD [address] [address] [place] [address] PCP - GeneralInternal Medicine02/10/23Team MemberRelationshipSpecialtyStart Date End Date Carlos Enrique Maguire MD [address] [address] [place] [address] PCP - ACO Reach02/26/23 Carlos Enrique Maguire MD [address] [place] [address] PCP - GeneralInternal Medicine02/10/23Team MemberRelationshipSpecialtyStart Date End Date Carlos Enrique Maguire MD [address] [place] [address] PCP - ACO Reach02/26/23 Carlos Enrique Maguire MD [address] [place] [address] PCP - GeneralInternal [facility]02/10/23Team MemberRelationshipSpecialtyStart Date End Date Carlos Enrique Maguire MD [address] [place] [address] PCP - ACO [facility]02/26/23 Carlos Enrique Maguire MD [address] [place] [address] PCP - GeneralInternal [facility]02/10/23Team MemberRelationshipSpecialtyStart Date End Date Carlos Enrique Maguire MD [address] [place] [address] PCP - ACO [facility]02/26/23 Carlos Enrique Maguire MD [address] [place] [address] PCP - GeneralInternal [facility]02/10/23Team MemberRelationshipSpecialtyStart Date End Date Carlos Enrique Maguire MD [address] [place] [address] PCP - GeneralInternal Medicine02/10/23 Carlos Enrique Maguire MD [address] [place] [address] PCP - ACO [facility]11/18/24Team MemberRelationshipSpecialtyStart DateEnd Date Carlos Enrique Maguire MD [address] [place] [address] PCP - GeneralInternal Medicine02/10/23 Carlos Enrique Maguire MD [address] [place] [address] PCP - ACO [facility]11/18/24Team MemberRelationshipSpecialtyStart DateEnd Date Carlos Enrique Maguire MD [address] [place] [address] PCP - GeneralInternal Medicine02/10/23Team MemberRelationshipSpecialtyStart Date End Date Carlos Enrique Maguire MD [address] [place] [address] PCP - GeneralInternal Medicine02/10/23Team MemberRelationshipSpecialtyStart Date End Date Carlos Enrique Maguire MD [address] [place] [address] PCP - GeneralInternal Medicine02/10/23Team MemberRelationshipSpecialtyStart Date End Date Carlos Enrique Maguire MD [address] [place] [address] PCP - GeneralInternal Medicine02/10/23Team MemberRelationshipSpecialtyStart Date End Date Carlos Enrique Maguire MD [address] [place] [address] PCP - GeneralInternal Medicine02/10/23Team MemberRelationshipSpecialtyStart Date End Date Carlos Enrique Maguire MD [address] [place] [address] PCP - GeneralInternal Medicine02/10/23Team MemberRelationshipSpecialtyStart Date End Date Carlos Enrique Maguire MD [address] [place] [address] PCP - GeneralInternal Medicine02/10/23Team MemberRelationshipSpecialtyStart Date End Date Carlos Enrique Maguire MD [address] [place] [address] PCP - GeneralInternal Medicine02/10/23Team MemberRelationshipSpecialtyStart Date End Date Carlos Enrique Maguire MD [address] [place] [address] PCP - GeneralInternal Medicine03/15/25Team MemberRelationshipSpecialtyStart Date End Date Carlos Enrique Maguire MD [address] [place] [address] PCP - GeneralInternal Medicine02/10/23Team MemberRelationshipSpecialtyStart Date End Date Carlos Enrique Maguire MD [address] [place] [address] PCP - GeneralInternal Medicine03/15/25 Team Status: Active Member Role Status Dates Carlos Enrique Maguire II MD Primary Care Provider Active Team Status: Inactive Member Role Status Dates Carlos Enrique Maguire II MD Primary Care Provider Active Start: May 17, 2025 End: May 17, 2025Rebeca Dill APRN CATALOG LIBRARIAN-CAttending Provider ActiveStart: May 17, 2025 End: May 17, 2025Team MemberRelationshipSpecialtyStart DateEnd Date Carlos Enrique Maguire MD [address] [place] [address] PCP - GeneralInternal Medicine02/10/23Team MemberRelationshipSpecialtyStart Date End Date Carlos Enrique Maguire MD [address] [place] [address] PCP - GeneralInternal Medicine02/10/23Team MemberRelationshipSpecialtyStart Date End Date Carlos Enrique Maguire MD [address] [place] [address] PCP - GeneralInternal Medicine03/15/25Team MemberRelationshipSpecialtyStart Date End Date Carlos Enrique Maguire MD [address] [place] [address] PCP - GeneralInternal Medicine03/15/25Team MemberRelationshipSpecialtyStart Date End Date Carlos Enrique Maguire MD [address] [place] [address] PCP - GeneralInternal Medicine02/10/23Team MemberRelationshipSpecialtyStart Date End Date Carlos Enrique Maguire MD [address] [place] [address] PCP - GeneralInternal Medicine02/10/23 Team Status: Inactive Member Role Status Dates Carlos Enrique Maguire II MD Primary Care Provider Active Start: June 06, 2025 End: June 06Blaise Beaver ProviderActiveStart: June 06, 2025 End: June 06, 2025Team MemberRelationshipSpecialtyStart DateEnd Date Carlos Enrique Maguire MD [address] [place] [address] PCP - GeneralInternal Medicine02/10/23 Team Status: Inactive Member Role Status Dates Carlos Enrique Maguire II MD Primary Care Provider Active Start: June 13, 2025 End: June 13Blaise Mary ProviderActiveStart: June 13, 2025 End: June 13, 2025Team MemberRelationshipSpecialtyStart DateEnd Date Carlos Enrique Maguire MD [address] [place] [address] PCP - GeneralInternal Medicine02/10/23Team MemberRelationshipSpecialtyStart Date End Date Carlos Enrique Maguire MD [address] [place] [address] PCP - GeneralInternal Medicine02/10/23Team MemberRelationshipSpecialtyStart Date End Date Carlos Enrique Maguire MD [address] [place] [address] PCP - GeneralInternal Medicine03/15/25Team MemberRelationshipSpecialtyStart Date End Date Carlos Enrique Maguire MD [address] [place] [address] PCP - GeneralInternal Medicine06/26/25Team MemberRelationshipSpecialtyStart Date End Date Carlos Enrique Maguire MD [address] [place] [address] PCP - GeneralInternal Medicine03/15/25 Team Status: Inactive Member Role Status Dates Carlos Enrique Maguire II MD Primary Care Provider Active Start: June 30, 2025 End: June 30, 2025Blaise Mora ProviderActiveStart: June 30, 2025 End: June 30, 2025Team MemberRelationshipSpecialtyStart DateEnd Date Carlos Enrique Maguire MD [address] [place] [address] PCP - [facility] Centernal [facility]03/15/25Team MemberRelationshipSpecialtyStart Date End Date Alexander Lpoez MD [address] [place] [address] PCP - [facility] Uzrtfvjx19/5/25Team MemberRelationshipSpecialtyStart DateEnd Date Alexander Lopez MD [address] [place] [address] [facility] Uyieltdk77/5/25Team MemberRelationshipSpecialtyStart DateEnd Date Alexander Lopez MD [address] [place] [address] PCP - Generalmi Zxrgjamc80/5/25Team MemberRelationshipSpecialtyStart DateEnd Date Alexander Lopez MD [address] [place] [address] PCP - Generalmi Mqgmohli88/5/25Team MemberRelationshipSpecialtyStart DateEnd Date Alexander Lopez MD [address] [place] [address] PCP - GeneralFamily Totkurgq55/5/25Team MemberRelationshipSpecialtyStart DateEnd Date Unallocated, Nommignon Justice MD [address] [place] [address] PCP - GeneralFamily Medicine06/27/25Team MemberRelationshipSpecialtyStart DateEnd Date Alexander Lopez MD [address] [place] [address] P[facility] - [facility]mi[facility]07/09/25Team MemberRelationshipSpecialtyStart DateEnd Date Jean Pierre Galo DO [address] [place] [address] PCP - [facility]miP[facility]07/25/25Te MemberRelationshipSpecialtyStart Date End Date Jean Pierre Galo DO [address] [place] [address] [facility]CP - [facility]07/25/25 Goals (unrecognized section and content) Goals may [...] BE BASED ON THE PRIMARY CLINICAL RECORDS. [facility]. provides no warranty or guarantee of the accuracy or completeness of information in this document.
--- OUTSIDE RECORDS SUMMARY | 2025-07-28 17:02 | XMS_ITS | Encounter Summary ---
Author Organization [facility] Address [address] [place] [address] Care Team Providers Care Residential Leasing Manager Name Role Phone Dg Galo DO Primary Care Provider [phone] Reason for Visit * ReasonOnset KuzqCooixqfbUzgqvisy25/24/2025 Encounter Details DateTypeDepartmentCare Team (Latest Contact Info)Ahdllqydpxe02/24/2025Telephone [facility] [address] [facility] [address] [place] [phone] Dg Galo DO [address] [facility] [address] [place] [address] Referral Social History Tobacco UseTypesPacks/DayYears UsedDateSmoking Tobacco: Every DayCigarettes Smokeless Tobacco: NeverAlcohol UseStandard Drinks/WeekCommentsNever0 (1 standard drink = 0.6 oz pure alcohol)Caffeine intake : chocolatePHQ-2AnswerDate RecordedPatient Health Questionnaire-2 [id number] and Gender InformationValueDate RecordedSex Assigned at BirthNot on fileLegal SexMale 12/17/2022 6:37 PM EDTGender IdentityNot on fileSexual OrientationNot on file documented as of this encounter Miscellaneous Notes * Telephone Encounter - Isabelle Bunn MA - 07/28/2025 3:45 PM EDT Spoke to pt on the phone about his CT scan and Dr. Galo getting the information in. Pt states that his hydroxyzine is not helping and he feels overwhelmed and states that he feels like he should go to the ER. I told pt that if he is feeling that rough and does not feel like the medication is helping at this time that he should go be evaluated to be safe. Pt voiced understanding and states he is going to the ER * Telephone Encounter - Adeola Suarez - 07/28/2025 2:24 PM EDT Pt calling to let Dr. Galo's office know his insurance is requiring additional documentation in order to approve the CT scan. * Telephone Encounter - Mary Edmonds - 07/28/2025 2:18 PM EDT Pt called stating his insurance told him they need a note from Dr. Galo on why the Pt needs the CT scan for his chest that was sent on 07/26 so the insurance can approve this. documented in this encounter Plan of Treatment DateTypeDepartmentCare Team (Latest Contact Info)Orqdjjhafwt11/07/2025 9:15 AM ESTConsult [facility] [address] [facility] [address] [place] [phone] Samuel Taveras MD [address] [facility] [address] [place] [address] 08/23/2025 10:30 AM ESTOffice Visit [facility] [address] [facility] [address] [place] [address] Munira Freedman NP [address] [facility] [address] [place] [address] 09/04/2025 8:40 AM ESTOffice Visit [facility] [address] [place] [phone] Dg Galo DO [address] [place] [address] documented as of this encounter Visit Diagnoses Not on filedocumented in this encounter Additional Health Concerns AssessmentNoted TimePHQ-9 Depression Total Score: 8:11 AM EDT documented as of this encounter Care Teams Team MemberRelationshipSpecialtyStart DateEnd Date Dg Galo DO [address] [facility] [address] [place] [address] PCP - GeneralFamily Pcsewpgj53/21/25documented as of this encounter
--- OUTSIDE RECORDS SUMMARY | 2025-07-28 17:02 | XMS_ITS | Clinical Summary ---
Author Organization [facility] Healthcare Address [address] [place] [address] Care Team Providers Care Retention Representative Name Role Phone Dg Galo DO Primary Care Provider [phone] Allergies Active AllergyReactionsCriticalityNoted DateCommentsPenicillinsSwelling 12/06/2009 Other Reaction(s): Unknown localized to the site of injection Medications MedicationSigDispense QuantityRefillsLast FilledStart DateEnd DateStatus traMADol (Ultram) 50 MG tablet Indications:Severe back painTake 1 tablet (50 mg) by mouth every 6 (six) hours if needed for severe pain for up to 7 days 28 tablet 5Active cyclobenzaprine (Flexeril) 5 MG tablet Indications:Muscle spasmTake 1 tablet (5 mg) by mouth 3 (three) times a day as needed for muscle spasms May take 2 at bedtime 60 tablet /6Active bacitracin 500 UNIT/GM ointment Indications:AbrasionApply topically in the morning and before bedtime. 14 g 5Active diclofenac (Voltaren) 75 MG EC tablet Indications:Severe back painTake 1 tablet (75 mg) by mouth in the morning and 1 tablet (75 mg) before bedtime. 180 tablet /6Active levothyroxine (Synthroid, Levoxyl) 100 MCG tablet Indications:Hypothyroidism, unspecifiedTake 1 tablet (100 mcg) by mouth in the morning. Take before meals. 100 tablet 5Active pantoprazole (ProtoNix) 40 MG EC tablet Indications:Gastroesophageal reflux disease with esophagitis without hemorrhage Take 1 tablet (40 mg) by mouth Daily Do not crush, chew, or split. 90 tablet ctive sucralfate (Carafate) 1 g tablet Indications:Gastric pain,Nausea and vomiting, unspecified vomiting typeTake 1 tablet (1 g) by mouth 3 (three) times a day as needed (reflux) 120 tablet 5Active sertraline (Zoloft) 100 MG tablet Indications:Reactive depression (situational)Take 2 tablets (200 mg) by mouth at bedtime 60 tablet ctive atorvastatin (Lipitor) 20 MG tablet Indications:Mixed hyperlipidemiaTake 1 tablet (20 mg) by mouth Daily 30 tablet ctive triamcinolone (Kenalog) 0.1 % cream Indications:DermatitisApply topically in the morning and before bedtime. 30 g 07/26/2025tive hydrOXYzine pamoate (Vistaril) 50 MG capsule Indications:AnxietyTake 1 capsule (50 mg) by mouth every 6 (six) hours if needed for anxiety 90 capsule 5Active atorvastatin (Lipitor) 20 MG tablet Indications:Mixed hyperlipidemiaTake 1 tablet (20 mg) by mouth Daily 30 tablet Discontinued(Reorder) levothyroxine (Synthroid, Levoxyl) 100 MCG tablet Indications:Hypothyroidism, unspecifiedTake 1 tablet (100 mcg) by mouth in the morning. Take before meals. 100 tablet Discontinued(Reorder) mirtazapine (Remeron) 30 MG tablet Indications:Reactive depression (situational)Take 1 tablet (30 mg) by mouth at bedtime 30 tablet Discontinued diclofenac (Voltaren) 75 MG EC tablet Indications:Severe back painTake 1 tablet (75 mg) by mouth in the morning and 1 tablet (75 mg) before bedtime. 180 tablet Discontinued(Reorder) sertraline (Zoloft) 100 MG tablet Indications:Reactive depression (situational)Take 2 tablets (200 mg) by mouth at bedtime 60 tablet Discontinued(Reorder) pantoprazole (ProtoNix) 40 MG EC tablet Indications:Gastroesophageal reflux disease with esophagitis without hemorrhage Take 1 tablet (40 mg) by mouth Daily Do not crush, chew, or split. 100 tablet Discontinued(Reorder) sucralfate (Carafate) 1 g tablet Indications:Gastric pain,Nausea and vomiting, unspecified vomiting typeTake 1 tablet (1 g) by mouth in the morning and 1 tablet (1 g) in the evening. Take before meals. 60 tablet 110Discontinued(Reorder) predniSONE (Deltasone) 10 MG tablet Indications:Pericardial effusion (HHS-HCC)Take 4 tablets (40 mg) by mouth Daily for 4 days, THEN 3 tablets (30 mg) Daily for 4 days, THEN 2 tablets (20 mg) Daily for 4 days, THEN 1 tablet (10 mg) Daily for 4 days. 40 tablet Expired LORazepam (Ativan) 1 MG tablet Indications:AnxietyTake 1 tablet (1 mg) by mouth 3 (three) times a day as needed for anxiety for up to 10 days 30 tablet Discontinued Active Problems ProblemNoted DateDiagnosed DatePersistent depressive kvuwlser85/05/2025hronic idiopathic xjrldsryovrb08/06/2024External hemorrhoid, /06/2024History of drug abuse in reocglcwa04/06/2024History of ETOH abuse12/09/2023norexia 07/01/2023nxiety disorder, mtkxeynnviz35/27/2023ipolar edphtkts32/27/2023 Deficiency of other specified B group jywunipf08/27/2023Vitamin B12 deficiency 07/01/2023Esophageal ybqsxt9907/01/20237073Vvaywqgkwnfoyv93/27/2023Mixed wbdqkhypefvmqo90/27/2402Sbhxfzp99/27/2023Orthostatic vuqmaicebku17/13/2010 Dizziness and xicsyfzjl11/07/4217Rwhrywwyxoyd32/07/2010 Resolved Problems ProblemNoted DateDiagnosed DateResolved DequUuzaqtxsflp79rug abuse Overview (12/09/2023): denies since 2005 ETOH abuse12/06/04619712/09/2023 Overview (12/09/2023): denies since 2005 Encounters DateTypeDepartmentCare DgekZdkwxozroqp27/24/2025Results Follow-Up [facility] [address] [facility] [place] [place] [address] Dg Galo, DO CBC and differential, Comprehensive metabolic panel, Lipid panel, Additional followed-up results: Telephone [facility] [address] [facility] [place] [phone] Dg Galo, Qoxmiaxv01/22/2025 8:20 AM EDTOffice Visit [facility] [address] [facility] [place] [address] Dg Galo, Wellness examination (Primary Dx); Screening for colon cancer; Severe back pain; Anxiety; Encounter for screening for coronary artery disease; Smoker; Reactive depression (situational); Hypothyroidism, unspecified; Gastroesophageal reflux disease with esophagitis without hemorrhage; Gastric pain; Nausea and vomiting, unspecified vomiting type; Mixed hyperlipidemia; Unintentional weight loss; Eindmfmeek15/22/2025Telephone [facility] [address] [facility] [place] [phone] Dg Galo, DO Med Refill; Medication Tnlbtczq91/22/2025amboo flowsheet [facility] [address] [facility] [place] [phone] Dg Galo, 07/26/20257308Ckanjy61/20/2025Telephone [facility] [address] [facility] [place] [phone] Dg Galo, DO Appointment Kyxmvju6507/07/2025bstract [facility] [address] [place] [address] Unallocated, Noms Provider, 06/26/2025Refill [facility] [place] [facility] [address] [place] [address] Munira Freedman NP Situational mixed anxiety and depressive disorder ; Efwoocc9406/22/2025bstract [facility] [id number] [place] [address], [place] [address] Unallocated, Noms Provider, 06/22/2025Telephone [facility] [place] [facility] [address] [place] [address] Tessa Castañeda 06/21/2025 11:30 AM EDTOffice Visit [facility] [place] [facility] [address] [place] [address] Munira Freedman NP Pre-operative clearance (Primary Dx)06/21/2025Telephone [facility] [place] [facility] [address] [place] [address] Carlos Enrique Maguire MD 06/21/2025amboo flowsheet [facility] [place] [facility] [address] [place] [address] Munira Freedman NP 06/21/20250030Ondfcp34/11/2025 4:00 PM EDTOffice Visit [facility] [place] [facility] [address] [place] [address] Munira Freedman, MANAGEMENT LECTURER Weight loss (Primary Dx); Gastric pain; Nausea and vomiting, unspecified vomiting type; Dysphagia, unspecified type; Pericardial effusion ([facility]); Skin regqllifd21/11/2025amboo flowsheet [facility] [place] [facility] [address] [place] [address] Munira Freedman NP 06/15/20250099Ntlsnr17/10/2025Telephone [facility] [place] [facility] [address] [place] [address] Munira Freedman, JERRY 06/13/2025bstract [facility] [place] [facility] [address] [place] [address] Carlos Enrique Maguire MD 06/08/2025Refill [facility] [place] [facility] [address] [place] [address] Carlos Enrique Maguire MD Gvmkakt0106/08/2025bstract [facility] [place] [facility] [address] [place] [address] Carlos Enrique Maguire MD 06/06/2025bstract [facility] [place] [facility] [address] [place] [address] Carlos Enrique Maguire MD 05/24/2025 10:30 AM EDTOffice Visit [facility] [place] [facility] [address] [place] [address] Munira Freedman, JERRY SOB (shortness of breath) (Primary Dx); Nausea and vomiting, unspecified vomiting type; Muscle spasm; Abrasion; Gastroesophageal reflux disease with esophagitis without hemorrhage; Murmur, heart05/24/2025Telephone [facility] [place] [facility] [address] [place] [address] Carlos Enrique Maguire MD 05/24/2025amboo flowsheet [facility] [place] [facility] [address] [place] [address] Munira Freedman, JERRY 05/24/20255883Bnxltv36/18/2025Telephone [facility] [place] [facility] [address] [place] [address] Carlos Enrique Maguire MD 05/20/2025Refill [facility] [place] [facility] [address] [place] [address] Carlos Enrique Maguire MD Anxiety; Severe back pain05/17/2025bstract [facility] [place] [facility] [address] [place] [address] Carlos Enrique Maguire MD 05/03/2025Telephone [facility] [place] [facility] [address] [place] [address] Carlos Enrique Maguire MD Referralfrom Last 3 Months Immunizations ImmunizationAdministration DatesNext DueInfluenza, injectable, quadrivalent 07/08/2019Influenza, injectable, quadrivalent, preservative free06/22/2020 Influenza, seasonal, intradermal, preservative free06/22/2017,07/06/2015, 07/07/2014 Family History Medical HistoryRelationNameCommentsCoronary artery diseaseFatherHyperlipidemia FatherHypertensionFatherStrokeFatherRelationNameStatusCommentsFatherMother Social History Tobacco UseTypesPacks/DayYears UsedDateSmoking Tobacco: Every DayCigarettes Smokeless Tobacco: Never Tobacco Cessation:Ready to Q uit: Not Asked; Counseling Given: Yes Alcohol UseStandard Drinks/WeekCommentsNever0 (1 standard drink = 0.6 oz pure alcohol)Caffeine intake : chocolatePHQ-2AnswerDate RecordedPatient Health Questionnaire-2 Svcui484Sex and Gender InformationValueDate RecordedSex Assigned at BirthNot on fileLegal RhzFmen7312/17/2022 6:37 PM EDTGender Identity Not on fileSexual OrientationNot on file Last Filed Vital Signs Vital SignReadingTime TakenCommentsBlood Yramydti344/7810 8:12 AM EDT Kbfjm868607/26/2025 8:12 AM EDKXnadkyznyzz99.4 ??C (97.5 ??F)07/26/2025 8:12 AM EDTRespiratory Qtio366506/21/2025 11:32 AM EDTOxygen Zdvwhoxort73%07/26/2025 8:12 AM EDTInhaled Oxygen Concentration--Iwbwey87.9 kg (112 lb 3.2 oz)07/26/2025 8:12 AM FTFZdphwq260.3 cm (5' 9 )07/26/2025 8:12 AM EDTBody Mass Index16.5707/26/2025 8:12 AM EDT Plan of Treatment DateTypeDepartmentCare Team (Latest Contact Info)Vmboemyrhxv38/07/2025 9:15 AM ESTConsult [facility] [address] [facility] [address] [place] [address] Samuel Taveras MD [address] [place] [address] 08/23/2025 10:30 AM ESTOffice Visit [facility] [address] [place] [address] Munira Freedman NP [address] [place] [address] 09/04/2025 8:40 AM ESTOffice Visit [facility] [address] [place] [address] Dg Galo DO [address] [place], [place] [phone] Health MaintenanceDue DateLast DoneCommentsCT Mtnzuoqsqteb47/12/1967Colonoscopy 1965Colorectal Cancer Zgeuuauhi05/12/1967FIT-DNA1966FIT1966 FOBT1965 8589Kkuyvzbgbrvsq91/12/1967Medicare Annual Wellness (AWV)02/28/2026 02/28/2025, 02/28/2025, 12/09/2023Influenza RzkzfdgMhqhyetwo26/24/2025, 06/22/2020, 07/08/2019, Additional history exists Procedures Procedure NamePriorityDate/TimeAssociated DiagnosisCommentsSED RATE BY MODIFIED NJHGQWIBTCBtlkszt14/23/2025 8:42 AM EDT Unintentional weight loss C-REACTIVE JQQCUVURfoohpp32/23/2025 8:42 AM EDT Unintentional weight loss T4, KWXIWhletvy30/23/2025 8:42 AM EDT Hypothyroidism, unspecified Unintentional weight loss PMXAjijmdp97/23/2025 8:42 AM EDT Hypothyroidism, unspecified Unintentional weight loss LIPID XEOCCYkuqvbp60/23/2025 8:42 AM EDT Wellness examination Encounter for screening for coronary artery disease COMPREHENSIVE METABOLIC BJGTYMwtevoy15/23/2025 8:42 AM EDT Wellness examination Encounter for screening for coronary artery disease CBC (INCLUDES DIFF/PLT)Akfvozz4007/27/2025 8:42 AM EDT Wellness examination Encounter for screening for coronary artery disease from Last 3 Months Results * Sedimentation rate, automated (07/27/2025 8:42 AM EDT)ComponentValueRef Range Test MethodAnalysis TimePerformed AtPathologist SignatureSed Rate-Dvkyjzmkee68 0 - 30 mm/hrLABCORPSpecimen (Source)Anatomical Location / LateralityCollection Method / VolumeCollection TimeReceived TimeBloodVenous blood specimen / Wikvapk0007/27/2025 8:42 AM EDT1 Narrative [facility] - 07/28/2025 8:08 AM EDT Performed at: 01 - [facility] [address] ??[id number] Financial Aid Coordinator: Henri Figueroa PhD, Phone: ??[phone] Authorizing ProviderResult TypeResult StatusTimtristen Galo DOLAB BLOOD ORDERABLESFinal ResultPerforming OrganizationAddressCity/State/ZIP CodePhone Number [facility] * (ABNORMAL) CBC and differential (07/27/2025 8:42 AM EDT)ComponentValueRef RangeTest MethodAnalysis TimePerformed AtPathologist FjscqtbgyUYQ18.3(H)3.4 - 10.8 x10E3/uLLABCORPRBC4.734.14 - 5.80 x10E6/mJKGBQHZCFxw97.713.0 - 17.7 g/dL MDTPWHKVnn57.137.5 - 51.0 %IXLWOCFCPJ0306 - 97 cOZDTZEUNADJ32.026.6 - 33.0 pg WWNKDRZNZFL67.531.5 - 35.7 g/jZWNUVUZZYXX55.311.6 - 15.4 %NSKLWUXLgodelvdr671 150 - 450 x10E3/wFFFKAECHAojzafoiniz47Zzs Estab. %ROAMBAHXodlel82Smu Estab. % TPVSBOCGjvkdduvh9Cmq Estab. %TAJCMJEPqp4Mrh Estab. %WBSVBDIRlsjo8Fko Estab. % LABCORPNeutrophils Abs7.5(H)1.4 - 7.0 x10E3/uLLABCORPLymphs Abs3.4(H)0.7 - 3.1 x10E3/uLLABCORPMonocytesAbs1.0(H)0.1 - 0.9 x10E3/uLLABCORPEos Abs0.20.0 - 0.4 x10E3/uLLABCORPBaso Abs0.10.0 - 0.2 x10E3/uLLABCORPImmature Bcdoepiljnbj1Jqy Estab. %LABCORPImmature Grans Abs0.00.0 - 0.1 x10E3/uLLABCORPSpecimen (Source) Anatomical Location / LateralityCollection Method / VolumeCollection Time Received TimeBloodVenous blood specimen / Knsvggt2207/27/2025 8:42 AM EDT 07/27/2025 Narrative [facility] - 07/28/2025 8:08 AM EDT Performed at: 01 - [facility] ??[id number] Financial Aid Coordinator: Henri Figueroa PhD, Phone: ??[phone] Authorizing ProviderResult TypeResult StatusTimtristen LAUREN BLOOD ORDERABLESFinal ResultPerforming OrganizationAddressCity/State/ZIP CodePhone Number [facility] * C-reactive protein (07/27/2025 8:42 AM EDT)ComponentValueRef RangeTest Method Analysis TimePerformed AtPathologist SignatureC-Reactive Protein Quant<10 - 10 mg/LLABCORPSpecimen (Source)Anatomical Location / LateralityCollection Method / VolumeCollection TimeReceived TimeBloodVenous blood specimen / Unknown 07/27/2025 8:42 AM EDT1 Narrative [facility] - 07/28/2025 8:08 AM EDT Performed at: [address] [place] [address] ??[id number] Financial Aid Coordinator: Henri Figueroa PhD, Phone: ??[phone] Authorizing ProviderResult TypeResult StatusTimothy L Mineral DOLAB BLOOD ORDERABLESFinal ResultPerforming OrganizationAddressCity/State/ZIP CodePhone Number [facility] * (ABNORMAL) TSH (07/27/2025 8:42 AM EDT)ComponentValueRef RangeTest Method Analysis TimePerformed AtPathologist SignatureTSH7.650(H)0.450 - 4.500 uIU/mL [facility]PSpecimen (Source)Anatomical Location / LateralityCollection Method / VolumeCollection TimeReceived TimeBloodVenous blood specimen / Unknown 07/27/2025 8:42 AM EDT1 Narrative [facility] - 07/28/2025 8:08 AM EDT Performed at: [address] [place] [address] ??[id number] Financial Aid Coordinator: Henri Figueroa PhD, Phone: ??[phone] Authorizing ProviderResult TypeResult StatusTimothy L Mineral DOLAB BLOOD ORDERABLESFinal ResultPerforming OrganizationAddressty/State/ZIP CodePhone Number [facility] * T4, free (07/27/2025 8:42 AM EDT)ComponentValueRef RangeTest MethodAnalysis TimePerformed AtPathologist HrsyxcjweO3Tjzs(Direct)1.040.82 - 1.77 ng/dL [facility]PSpecimen (Source)Anatomical Location / LateralityCollection Method / VolumeCollection TimeReceived TimeBloodVenous blood specimen / Unknown 07/27/2025 8:42 AM EDT1 Narrative [facility] - 07/28/2025 8:08 AM EDT Performed at: [address] [place] [address], [place] ??[id number] Financial Aid Coordinator: Henri Figueroa PhD, Phone: ??[phone] Authorizing ProviderResult TypeResult StatusDg NAVARRETEAB BLOOD ORDERABLESFinal ResultPerforming OrganizationAddressty/State/ZIP CodePhone Number [facility] * (ABNORMAL) Lipid panel (07/27/2025 8:42 AM EDT)ComponentValueRef RangeTest MethodAnalysis TimePerformed AtPathologist SignatureCholesterol, Loqlp813737 - 199 mg/wFGYZJOCARmygytmvjqjyg0097 - 149 mg/dLLABCORPHDL Ugntcieszyy54>39 mg/dL [facility]PVLDL Cholesterol Pyh512 - 40 mg/dLLABCORPLDL Chol Calc (NIH)104(H)0 - 99 mg/dLLABCORPSpecimen (Source)Anatomical Location / LateralityCollection Method / VolumeCollection TimeReceived TimeBloodVenous blood specimen / Shunkzc3207/27/2025 8:42 AM EDT1 Narrative [facility] - 07/28/2025 8:08 AM EDT Performed at: - [facility] ??[id number] Financial Aid Coordinator: Henri Figueroa PhD, Phone: ??[phone] Authorizing ProviderResult TypeResult StatusDg LAUREN BLOOD ORDERABLESFinal ResultPerforming OrganizationAddressty/State/ZIP CodePhone Number [facility] * (ABNORMAL) Comprehensive metabolic panel (07/27/2025 8:42 AM EDT)Component ValueRef RangeTest MethodAnalysis TimePerformed AtPathologist SignatureGlucose 102(H)70 - 99 mg/mKFXMYRLXKWU769 - 24 mg/dLLABCORPCreat0.810.76 - 1.27 mg/dL HTCXISAIXIG985>59 mL/min/1.73LABCORPBUN/Creat Ratio28(H)9 - 34PLEQXKTLkhgmn542 134 - 144 mmol/[facility]PPotassium4.63.5 - 5.2 mmol/IXNTXLTVXgbruhdr70430 - 106 mmol/[facility]ABCORPCarbon Hgryper4595 - 29 mmol/LLABCORPCalcium9.18.7 - 10.2 mg/dL [facility]PProtein Total6.76.0 - 8.5 g/dLLABCORPAlbumin4.23.8 - 4.9 g/dLLABCORP Globulin Total2.51.5 - 4.5 g/dLLABCORPBili Total0.50.0 - 1.2 mg/dLLABCORPAlk Jnpdqmbefck80521 - 123 IU/UCCPZATBACT571 - 40 IU/PERBYTKZZPF714 - 44 IU/L [facility]PSpecimen (Source)Anatomical Location / LateralityCollection Method / VolumeCollection TimeReceived TimeBloodVenous blood specimen / Unknown 07/27/2025 8:42 AM EDT1 Narrative [facility] - 07/28/2025 8:08 AM EDT Performed at: 01 - [facility] [address] ??[id number] Financial Aid Coordinator: Henri Figueroa PhD, Phone: ??[phone] Authorizing ProviderResult TypeResult StatusDg Galo DOLAB BLOOD ORDERABLESFinal ResultPerforming OrganizationAddressCity/State/ZIP CodePhone Number [facility] from Last 3 Months Insurance * Guarantor: Ole Stephens EAccount TypeRelation to PatientDate of BirthPhone Billing AddressPersonal/CwjhutFvob[birth year][address] [address] Care Teams Team MemberRelationshipSpecialtyStart DateEnd Dg Galo DO [address] [place] [address] PCP - GeneralFamily Eenytkeg93/21/25
--- OUTSIDE RECORDS SUMMARY | 2025-07-28 17:02 | XMS_ITS | Encounter Summary ---
Author Organization [facility] tem Address [facility] [id number] [address] 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 Name Role Phone Alexander Lassiter MD Primary Care Provider [phone] Encounter Details DateTypeDepartmentCare Team (Latest Contact Info)Wlyyuyeivhn29/08/2025Telephone [facility] [address] [place] [phone] Jackelin Omalley PA-C [address] [facility], [address] [place], [place] [id number] Social History Tobacco UseTypesPacks/DayYears UsedDateSmoking Tobacco: Every DayCigarettes Smokeless Tobacco: NeverAlcohol UseStandard Drinks/WeekCommentsNot Currently0 (1 standard drink = 0.6 oz pure alcohol)soberChildcareAnswerDate RecordedChildcare Ewebdhv6103/16/2019EmploymentAnswerDate ZeiilunzTslbeulsxtAkzmule49/12/2019Hunger ScreeningAnswerDate RecordedWithin the past 12 months we worried whether our food would run out before we got money to buy more.Never True07/19/2025Within the past 12 months the food we bought just didn't last and we didn't have money to get more.Never True07/19/2025Sex and Gender InformationValueDate RecordedSex Assigned at BirthNot on fileLegal MggZppr9305/10/2015 11:28 AM EDTGender Identity Not on fileSexual OrientationNot on filedocumented as of this encounter Miscellaneous Notes * Telephone Encounter - Rufina Banks CNA - [...] ends call abruptly. * Telephone Encounter - Jackelin Omalley PA-C - 07/12/2025 2:39 PM EDT Send letter for inappropriate behavior * Telephone Encounter - Steffi Israel RN - 07/12/2025 2:39 PM EDT Done documented in this encounter Plan of Treatment DateTypeDepartmentCare Team (Latest Contact Info)Kwtobdtbeub31/06/2025 7:15 AM ESTAppointment [facility] [address] [place] [place] [address] Jackelin Omalley PA-C [address] [place] [address] 08/22/2025 8:00 AM ESTOffice Visit [facility] [address] [place] [address] Zarina Holt, DISTRIBUTING CLERK-CHIEF CLOTH FINISHING RANGE OPERATOR [address] [address] documented as of this encounter Goals GoalPatient Goal TypeAssociated ProblemsRecent ProgressPatient-Stated?Author Autogenerated Goal Care PlanAutogenerated ProblemNoPotts, Elizabethdocumented as of this encounter Visit Diagnoses Not on filedocumented in this encounter Additional Health Concerns Active ProblemsNoted DateDiagnosed DateAutogenerated Jqkspfa6307/11/2025documented as of this encounter Care Teams Team MemberRelationshipSpecialtyStart DateEnd Date Alexander Lassiter MD [address] [place] [phone] PCP - GeneralFamily Zkriohpf46/5/2510/documented as of this encounter
--- OUTSIDE RECORDS SUMMARY | 2025-07-28 17:02 | XMS_ITS | Clinical Summary ---
Author Organization [facility] Address [facility] [id number] [address] [place] [id number] Care Team Providers Care Publicity Writer Name Role Phone Dg Galo DO Primary Care Provider [phone] Allergies Active AllergyReactionsCriticalityNoted DateCommentsPenicillinsSwelling 12/06/2009 localized to the site of injection Other Reaction(s): Unknown localized to the site of injection Medications MedicationSigDispense QuantityRefillsLast FilledStart DateEnd DateStatus atorvastatin (LIPITOR) 20 mg tablet Take 1 tablet (20 mg total) by mouth in the morning.Active levothyroxine (SYNTHROID, LEVOTHROID) 100 MCG tablet Take 1 tablet (100 mcg total) by mouth in the morning.Active LORazepam (ATIVAN) 0.5 mg tablet Take 1 tablet (0.5 mg total) by mouth 2 (two) times a day as needed for anxiety. 5Active traMADoL (ULTRAM) 50 mg tablet Take 2 tablets (100 mg total) by mouth every 6 (six) hours as needed.03/02/2025 Active sucralfate (CARAFATE) 1 gram tablet Take 1 tablet (1 g total) by mouth in the morning and 1 tablet (1 g total) in the evening. Take before meals.5Active ibuprofen (MOTRIN) 600 mg tablet Take 1 tablet (600 mg total) by mouth every 6 (six) hours as needed for pain. 30 tablet 5Active bacitracin zinc ointment Apply 1 Application topically in the morning and 1 Application before bedtime. 120 g 5Active diclofenac sodium (VOLTAREN) 1 % gel Apply 2 g topically in the morning and 2 g at noon and 2 g in the evening and 2 g before bedtime. 100 g 5Active sod sulf-pot chloride-mag sulf 1.479-0.188- 0.225 gram tablet Indications:Weight loss,Nausea and vomiting, unspecified vomiting typePlease see instructional sheet given by physicians office. 24 tablet 5Active sertraline (ZOLOFT) 100 mg tablet Take 2 tablets (200 mg total) by mouth nightly.Active gabapentin (NEURONTIN) 600 mg tablet Indications:Thoracic spondylosis without myelopathy,Lumbar spondylosisTake 1 tablet (600 mg total) by mouth 3 (three) times a day. 90 tablet tive baclofen (LIORESAL) 10 mg tablet Take 1 tablet (10 mg total) by mouth 2 (two) times a day as needed for muscle spasms. 60 tablet tive meloxicam (MOBIC) 15 mg tablet Take 1 tablet (15 mg total) by mouth in the morning. 30 tablet tive mirtazapine (REMERON) 30 mg tablet Take 1 tablet (30 mg total) by mouth nightly.Discontinued (Therapy completed) tiZANidine (ZANAFLEX) 4 mg tablet Take 1 tablet (4 mg total) by mouth every 8 (eight) hours as needed for muscle spasms. TAKE 1 TABLET(4 MG) BY MOUTH EVERY 8 HOURS NEEDED FOR MUSCLE SPASMS Discontinued(Alternate therapy) gabapentin (NEURONTIN) 300 mg capsule Indications:Thoracic spondylosis without myelopathy,Lumbar spondylosisTake 1 capsule (300 mg total) by mouth 3 (three) times a day. 90 capsule Discontinued(Reorder) meloxicam (MOBIC) 15 mg tablet Take 1 tablet (15 mg total) by mouth in the morning. 30 tablet /Discontinued(Reorder) baclofen (LIORESAL) 10 mg tablet Take 1 tablet (10 mg total) by mouth 2 (two) times a day as needed for muscle spasms. 60 tablet /Discontinued(Reorder) predniSONE (DELTASONE) 10 mg tablet Take by mouth in the morning. 40 mg taper as directed ./ sod sulf-pot chloride-mag sulf 1.479-0.188- 0.225 gram tablet Indications:Weight loss,Nausea and vomiting, unspecified vomiting typePlease see instructional sheet given by physicians office. 24 tablet Discontinued Active Problems ProblemNoted DateDiagnosed DateThoracic spondylosis without jtxlopnzic05/11/2025 Chronic idiopathic vaoozefhulzl00/06/2024External hemorrhoid, oviprtxb80/06/2024 History of drug abuse in jbuwmjfuk50/06/2024Esophageal cesehy1507/01/2023 Qdyxoocmqcdtgz32/27/2023Loss of xhlifixp75/27/2023Mixed ewcaapsaiyimdp09/27/2023 Asjvskn6607/01/2023Vitamin B12 tlazdascfo95/27/2023Orthostatic hypotension 12/15/2009nxiety disorder, lmzeltkqemr97/07/2010Depressive /07/2010 Uyqlrbyyreur68/07/2010ipolar 2 dpbzsexl94/04/2010 Overview (03/15/2025): 2003 Drug abuse12/06/2009 Overview (03/15/2025): denies since 2005 ETOH abuse12/06/2009 Overview (03/15/2025): denies since 2005 Encounters DateTypeDepartmentCare UvizXgsfpsrgpqj12/17/2025Telephone [facility] [address] [place] [phone] Leny Madsen RN 07/20/2025Hospital Encounter [facility] - Surgery [address] [place] [address] Gustavo Castro DO 07/19/2025 10:45 AM EDTOffice Visit [facility] [address] [place] [address] Jackelin Omalley, PAAngC Thoracic spine pain (Primary Dx); Thoracic spondylosis without myelopathy; Lumbar yrjpsxrmcjm30/15/8505Mfkmkm82/14/2025Telephone [facility] General Surgery [address] [place] [address] Gustavo Castro, DO 07/17/2025 11:59 PM EDTAnesthesia Event [facility] - Surgery [address] [place] [address] [place] [address] Costa Brooke, DO 07/13/2025 1:50 PM EDTSupport Visit [facility] - Pre Admit [address] [place] [place] [address] 07/12/2025Telephone [facility] [address] [place] [address] [place] [phone] Jackelin Omalley PA-C 07/11/2025 9:00 AM EDTOffice Visit [facility] General Surgery [address] [place] [address] Monica Ortiz, BAKELITE MOLDER-SAEID Weight loss (Primary Dx); Nausea and vomiting, unspecified vomiting type; Marijuana abuse07/09/2025 2:09 PM EDT - 07/09/2025 2:52 PM EDTEmergency [facility] Emergency [address] [place] [phone] Open wound of chin, initial encounter (Primary Dx) Discharge Disposition: Home07/09/20253120Buwymy82/23/2025Telephone [facility] [address] [place] [address] Steffi Israel RN 06/23/2025 10:07 AM EDT - 06/23/2025 10:14 AM EDTSurgery [facility] - Pain Procedures [address] [place] [address] Kota Petty MD INJECTION BLOCK NERVE MEDIAL BRANCH Bilat T 3/4, 4/5 [90567 (CPT??)]06/23/2025 9:23 AM EDT - 06/23/2025 11:59 PM EDTHospital Encounter [facility] Pain Procedures [address] [place] [address] Kota Petty MD Discharge Disposition: Home06/23/2025 8:45 AM EDT - 06/23/2025 9:22 AM EDT Hospital Encounter [facility] - Radiology [address] [place] [address] Kota Petty MD Thoracic spondylosis without myelopathy Discharge Disposition: Home06/23/2025Telephone [facility] [address] [place] [address] Stacie Carranza RN 06/16/2025Orders Only [facility] [address] [place] [address] Steffi Israel, FLORENCIA 06/16/2025Telephone [facility] [address] [place] [address] Steffi Israel, FLORENCIA 06/09/2025Refill [facility] [address] [place] [address] Liss Moralez, FLORENCIA 06/08/2025 7:16 AM EDT - 06/08/2025 11:59 PM EDTHospital Encounter [facility] - Cardiovascular [address] [place] [address] Murmur, heart; SOB (shortness of breath) Discharge Disposition: Home06/07/2025 1:00 PM EDTOffice Visit [facility] [address] [place] [address] [place] [address] Jackelin Omalley PA-C Thoracic spondylosis without myelopathy (Primary Dx)06/06/20255937Vkwymc63/18/2025 Refill [facility] [address] [place] [address] Liss Moralez RN 05/22/2025Refill [facility] [address] [place] [address] Liss Moralez RN Thoracic spondylosis without myelopathy; Lumbar eztmahqlppp88/15/2025 9:50 AM EDT - 05/19/2025 9:57 AM EDTSurgery [facility] - Pain Procedures [address] [place] [address] Kota Petty MD INJECTION BLOCK NERVE MEDIAL BRANCH Bilat T 3/4, 4/5 [83871 (CPT??)]05/19/2025 8:59 AM EDT - 05/19/2025 11:59 PM EDTHospital Encounter [facility] Pain Procedures [address] [place] [address] [place] [address] Kota Petty MD Discharge Disposition: Home05/19/2025 8:20 AM EDT - 05/19/2025 8:58 AM EDT Hospital Encounter [facility] - Radiology [address] [place] [place] [address] Kota Petty MD Thoracic spondylosis without myelopathy Discharge Disposition: Home05/19/20251414Sbrrch13/04/2025Travelfrom Last 3 Months Family History Medical HistoryRelationNameCommentsDiabetesFatherHypertensionFatherHypertension MotherRelationNameStatusCommentsFatherDeceasedMotherDeceased Social History Tobacco UseTypesPacks/DayYears UsedDateSmoking Tobacco: Every DayCigarettes Smokeless Tobacco: Never Tobacco Cessation:Ready to Q uit: Not Asked; Counseling Given: Not Answered Alcohol UseStandard Drinks/WeekCommentsNot Currently0 (1 standard drink = 0.6 oz pure alcohol)soberChildcareAnswerDate FdedpottGauvpacltWyvjqgg89/12/2019 EmploymentAnswerDate SpbynrebJntjipogcwYqwaxui17/12/2019Hunger ScreeningAnswer Date RecordedWithin the past 12 months we worried whether our food would run out before we got money to buy more.Never True07/19/2025Within the past 12 months the food we bought just didn't last and we didn't have money to get more.Never True07/19/2025Sex and Gender InformationValueDate RecordedSex Assigned at Not on fileLegal JdjYpcw9705/10/2015 11:28 AM EDTGender IdentityNot on fileSexual OrientationNot on file Last Filed Vital Signs Vital SignReadingTime TakenCommentsBlood Lcicbvms454/9807/19/2025 10:37 AM EDT Stlfg058007/19/2025 10:37 AM NFNDpxdqlfylpx25.6 ??C (97.8 ??F)07/09/2025 2:13 PM EDTRespiratory Hgep0119 10:37 AM EDTOxygen Ftjqvikihq999%07/19/2025 10:37 AM EDTInhaled Oxygen Concentration--Lpzftn22.8 kg (114 lb 3.2 oz) 07/11/2025 8:55 AM DYWDotgdg891.3 cm (5' 9 )07/11/2025 8:55 AM EDTBody Mass Index16.8607/11/2025 8:55 AM EDT Plan of Treatment DateTypeDepartmentCare Team (Latest Contact Info)Kzshbuhdmay46/06/2025 7:15 AM ESTAppointment [facility] [address] [place] [address] Jackelin Omalley, PAAngC [address] [place], [place] [address] 08/22/2025 8:00 AM ESTOffice Visit [facility] [address] [place] [address] Zarina Holt, BAKELITE MOLDER-PAYROLL ASSISTANT [address] [facility] [address] Health MaintenanceDue DateLast DoneCommentsTobacco Onhavprllz52/12/1967 Depression Pupiuwmzb10/12/1979Adult BMI Follow Up Plan1984Zoster (Shingles) Vaccine (1 of 2)2016Adult BMI Qfnwczwxv36 Tobacco Ebbmfufud26DTaP,Tdap and Td Vaccines (2 - Td or Tdap) 5006/06/2025Influenza VazaolnYmlbedkgw58/24/2025, 06/22/2020, 07/08/2019, Additional history exists Goals GoalPatient Goal TypeAssociated ProblemsRecent ProgressPatient-Stated?Author Autogenerated Goal Care PlanAutogenerated ProblemNoPotts, Haily [employer] Not on file Procedures Procedure NamePriorityDate/TimeAssociated DiagnosisCommentsFL FLUOROSCOPY UP TO 1 SFEBLepzqte56/19/2025 9:55 AM EDT Thoracic spondylosis without myelopathy [place] INJ DX/THER AGNT PARAVERT FACET JOINT,IMG GUIDE,CERV/THORAC, 1ST LEVEL 06/23/2025 9:50 AM EDT Thoracic spondylosis without myelopathy Special Needs Echo / ECHO COMPLETE WO ZBVJIUPTEsqbsps83/04/2025 7:58 AM EDT Murmur, heart SOB (shortness of breath) FL FLUOROSCOPY UP TO 1 RHVOPqjrnbb91/15/2025 9:41 AM EDT Thoracic spondylosis without myelopathy [place] INJ DX/THER AGNT PARAVERT FACET JOINT,IMG GUIDE,CERV/THORAC, 1ST LEVEL 05/19/2025 9:34 AM EDT Thoracic spondylosis without myelopathy Special Needs NO STEROID PER INSURANCE from Last 3 Months Results * Fluoroscopy less than one hour (06/23/2025 9:55 AM EDT) Only the most recent of2 resultswithin the time period is included. Specimen (Source)Anatomical Location / LateralityCollection Method / Volume Collection TimeReceived Time Narrative SYSTEMGENERATED, DOCUMENTATION - 06/23/2025 9:55 AM EDT No Reading Required. This procedure does not require a formal dictation. Non-Radiologist provider performed procedures can be reviewed under Post-Op, Procedure or Progress notes. For full report details, please reach out to your physician. ??Effective 02/19/2021 this image will be visible to you in [facility]. Authorizing ProviderResult TypeResult StatusKota Petty MDIMJonathan FLUOROSCOPY ORDERABLESFinal Result * Echo complete W/O contrast (06/08/2025 7:58 AM EDT)ComponentValueRef RangeTest MethodAnalysis TimePerformed AtPathologist SignatureLVOT stroke fokvpd58.80ml XCELERALV Systolic Njlghb92.82oRYFNVEHBVQ13%DAFYCBKSD3858 - 44 %XCELERALV Diastolic Dnojfz78.78oYKGIIXFMJHJJy5.82liHOYVZDPOVBHh8.25xhTJXWDEHAWE7.800.6 - 1.1 cmXCELERAPW0.800.6 - 1.1 cmXCELERALVOT diameter2.99epICWEKSNTBV52.10cm/s XCELERAMV TDI E' (medial)7.29cm/sXCELERALA Volume Index13.1mL/s8TPLWPQHM/A ratio0.83XCELERAE wave deceleration qtyd045.00msecXCELERAMV Peak E Vel47.50 cm/sXCELERAMV Peak A Vel57.20cm/sXCELERALA size3.00cmXCELERAAortic root2.90cm XCELERALA oipmey13.13ph1TRPONNWUP diastolic dimension (basal)32.0mmXCELERARVID d2.1hhWJTUFFKMDVIH3.47cmXCELERAAV peak afq077.00cm/sXCELERALVOT peak vel1.25 m/sXCELERAAV VTI28.20cmXCELERALVOT peak VTI21.90cmXCELERAAV mean gradient4.00 mmHgXCELERAAV peak gradient7.95mmHgXCELERAAV valve area2.44XCELERAValve area - Index1.6XCELERAMV pressure 1/2 time80.00msXCELERAMV valve area p 1/2 method 2.79nv6IYQMZEQFJ Peak Vel1.8m/sXCELERATR peak ytrzbqef33.25mmHgXCELERALV ESV A2C18.80mLXCELERALV ESV A4C19.20mLXCELERALV RWT 2D44.44XCELERAEcho EF Fjocbnidn63%XCELERAAV Velocity Ratio0.78XCELERALeft Ventricle Mass 78.96723050665415tQDWLWQIUxpgtekvyxhnpxvz Septum Diastolic Thickness by 2D8cm XCELERAEst. RA sozmfunb0vtQbRXYFRZEBG area10.4nz0MFFHUGZSqwryztxmp Region LateralityModalityChestN/AUltrasoundSpecimen (Source)Anatomical Location / LateralityCollection Method / VolumeCollection TimeReceived Time Narrative 06/08/2025 9:51 AM EDT Left Ventricle: Left ventricle is small. Systolic function is normal with an ejection fraction of 60-65%. The quantitative EF by 2D Go biplane is 65%. Normal diastolic function is present. ?Right??Ventricle: Right ventricular size appears normal. ?There is no significant valvular stenosis or regurgitation. ?Pericardium: There is a small fluid pericardial effusion. [...] The left ventricular wall motion is normal. Authorizing ProviderResult TypeResult StatusMunira Freedman BAKELITE MOLDER-CNPCV ECHO ORDERABLESFinal Result from Last 3 Months Additional Health Concerns Active ProblemsNoted DateDiagnosed DateAutogenerated Tyudfge1707/11/2025 Insurance Care Teams Team MemberRelationshipSpecialtyStart DateEnd Date Dg Galo DO [address] [place] [address] PCP - GeneralOsteopathic Zbkpkirz76/22/25
--- NOTE | 2025-07-28 17:04 | ED.GENADUL1 ---
HPI HPI - General Adult General Chief complaint: Anxiety Stated complaint: ANXIETY Time Seen by Provider: 07/28/25 16:34 History of Present Illness HPI narrative: Patient is a 59-year-old male presenting to the emergency department for evaluation of anxiety. Patient states he has a longstanding history of anxiety, used to be on Ativan, but is now on hydroxyzine 50 mg every 6 hours as needed. He states that he became acutely anxious earlier today and did take a dose of hydroxyzine. However, his anxiety persists and is requesting Ativan. His last anxiety attack was 2 days ago. Other than anxiety, he has no other complaints. No chest pain, shortness breath, abdominal pain, nausea, vomiting, fevers, or chills. He denies suicidal homicidal ideation. The patient does note that he has had a 40 pound unintentional weight loss over the last 7 months, is currently being worked up outpatient for underlying malignancy. He just had blood work done with his PCP 2 days ago, unsure of the results. He has smokes cigarettes for the last 43 years. Related Data Home Medications ?Medication ?Instructions ?Recorded ?Confirmed olanzapine 20 mg tablet 20 mg PO DAILY 11/27/23 06/24/25 sertraline 100 mg tablet 200 mg PO DAILY 11/27/23 06/24/25 atorvastatin 20 mg tablet 20 mg PO DAILY 09/24/24 06/24/25 buspirone 5 mg tablet 5 mg PO TID 09/24/24 06/24/25 alprazolam 0.25 mg tablet 0.5 mg PO DAILY 11/28/24 06/24/25 meloxicam 15 mg tablet 15 mg PO DAILY 06/24/25 06/24/25 Previous Rx's ?Medication ?Instructions ?Recorded diclofenac sodium 75 mg 75 mg PO BID PRN pain #14 tabs 09/24/24 tablet,delayed release orphenadrine citrate 100 mg 100 mg PO BID PRN muscle spasm #14 09/24/24 tablet,extended release tabs lorazepam 0.5 mg tablet 0.5 mg PO Q12H PRN anxiety 2 days 07/28/25 #3 tabs Allergies Allergy/AdvReac Type Severity Reaction Status Date / Time Penicillins Allergy Mild swelling Verified 06/24/25 03:18 Opioid HPI Opioid Management Most Recent Opioid Data: Last Pain Scale 9 06/24/25, 03:23 Review of Systems ROS Status of ROS 10 or more systems reviewed and unremarkable except as noted in history and below PFSH PFS Social History Smoking status: Current every day smoker Little interest or pleasure in doing things: not at all Feeling down, depressed, or hopeless: not at all Exam Narrative Exam Narrative: CONSTITUTIONAL: Patient appears anxious and is hyperventilating, he appears very thin and borderline cachectic SKIN: Was warm and dry, no jaundice. EYES: Sclerae white. EARS, NOSE, THROAT: Moist oral mucosa. RESPIRATORY: Clear to auscultation bilaterally, no wheezes, crackles, or stridor, no use of accessory muscles CARDIOVASCULAR: Normal rate and regular rhythm. There is no S3, S4, murmur, rub. GASTROINTESTINAL: Abdomen is soft, nontender, nondistended. No palpable masses. MUSCULOSKELETAL: No peripheral edema. NEUROLOGIC: Patient is awake and alert. Facies were symmetrical. Constitutional Vital Signs, click to edit/add: Last Vital Signs Temp 98.6 F 07/28/25 16:35 Pulse 89 07/28/25 16:35 Resp 24 H 07/28/25 16:35 BP 151/87 H 07/28/25 16:35 Pulse Ox 100 07/28/25 16:35 O2 Del Method Room Air 07/28/25 16:35 Course Vital Signs Vital signs: Vital Signs Temperature 98.6 F 07/28/25 16:35 Pulse Rate 89 07/28/25 16:35 Respiratory Rate 24 H 07/28/25 16:35 Blood Pressure 151/87 H 07/28/25 16:35 Pulse Oximetry 100 07/28/25 16:35 Oxygen Delivery Method Room Air 07/28/25 16:35 Temperature 98.6 F 07/28/25 16:35 Pulse Rate 89 07/28/25 16:35 Respiratory Rate 24 H 07/28/25 16:35 Blood Pressure 151/87 H 07/28/25 16:35 Pulse Oximetry 100 07/28/25 16:35 Oxygen Delivery Method Room Air 07/28/25 16:35 Medical Decision Making MDM Narrative Medical decision making narrative: Patient is a 59-year-old male, history of anxiety and recent unintentional weight loss currently being worked up outpatient for underlying malignancy, presenting to the emergency department for evaluation of anxiety. His vital signs on arrival are significant for tachypnea, though he is anxious and hyperventilating. He is otherwise afebrile and hemodynamically stable. He does appear quite anxious, he was treated with oral Ativan. In regards to his unintentional weight loss, this very well could be an underlying malignancy especially given his smoking history. I do not believe any emergent workup is necessary, however he is extremely concerned and is requesting a workup here in the ED. Therefore, screening laboratory studies were obtained including a CT chest/abdomen/pelvis as he has been complaining of vague epigastric discomfort and changes bowel habits. CT chest demonstrated emphysematous changes without evidence of malignancy or acute pleural?parenchymal disease. CT abdomen/pelvis independently reviewed and interpreted by myself and radiology demonstrated no definite abdominal mass or metastatic disease identified. Possible gastritis. Laboratory studies were significant for mild anemia. No leukocytosis. No thrombocytosis. No electrolyte or metabolic derangement. Mild uremia. Normal creatinine. Euglycemic. No transaminitis or hyperbilirubinemia. On reevaluation, patient states he feels significantly improved after alprazolam. I do believe he is stable for discharge and outpatient follow-up with his PCP. I gave him a copy of his CT scans, and recommended continued outpatient workup for possible underlying malignancy. I did prescribe him a 3 tablets of 0.5 mg alprazolam for his anxiety. Return precautions were given including any new or concerning symptoms. Patient understands and agrees to the plan. FINAL IMPRESSION: #Acute anxiety #Acute recent unintentional weight loss DISPOSITION: Discharged home CONDITION: Good Lab Data Lab results reviewed: Yes I reviewed the patient's lab results Labs: Lab Results 07/28/25 Range/Units 17:04 WBC 9.1 (4.0-11.0) 10^3/uL RBC 4.59 L (4.70-6.10) 10^6/uL Hgb 13.5 L (14.0-18.0) g/dL Hct 40.1 L (42.0-54.0) % MCV 87.4 (80.0-94.0) fL MCH 29.4 (25.9-34.0) pg MCHC 33.7 (29.9-35.2) g/dL RDW 14.3 (11.0-15.0) % Plt Count 363 (150-450) 10^3/uL MPV 9.2 L (9.5-13.5) fL Neut % (Auto) 59.9 (43.0-75.0) % Lymph % (Auto) 29.9 (20.5-60.0) % [place] % (Auto) 8.2 (1.7-12.0) % Eos % (Auto) 0.9 (0.9-7.0) % Baso % (Auto) 0.9 (0.2-2.0) % Neut # (Auto) 5.5 (1.4-6.5) 10^3/uL Lymph # (Auto) 2.7 (1.2-3.8) 10^3/uL [place] # (Auto) 0.8 (0.3-0.8) 10^3/uL Eos # (Auto) 0.1 (0.0-0.7) 10^3/uL Baso # (Auto) 0.1 (0.0-0.1) 10^3/uL Abs Immat Gran (auto) 0.02 (0.00-0.03) 10^3/uL Imm/Tot Granulo (auto) 0.2 (0.0-0.5) % Sodium 142 (136-145) mmol/L Potassium 4.0 (3.5-5.1) mmol/L Chloride 104 (98-107) mmol/L Carbon Dioxide 27.6 (21.0-32.0) mmol/L Anion Gap 14.4 BUN 41.0 H (7.0-18.0) mg/dL Creatinine 0.76 (0.70-1.30) mg/dL Est GFR ( Amer) >60 (>=60 mL/min/1.73m^2) Est GFR (Non-Af Amer) >60 (>=60 mL/min/1.73m^2) BUN/Creatinine Ratio 53.9 Glucose 119 H (74-106) mg/dL Calcium 9.2 (8.5-10.1) mg/dL Total Bilirubin 0.3 (0.2-1.0) mg/dL AST 24 (15-37) U/L ALT 36 (16-63) U/L Alkaline Phosphatase 91 (46-116) U/L Total Protein 7.3 (6.4-8.2) g/dL Albumin 3.6 (3.4-5.0) g/dL Globulin 3.7 g/dL Albumin/Globulin Ratio 1.[address] scan - abdomen: Attestation: I personally reviewed and interpreted this imaging study as follows: Radiologist's impression: ITS Impressions Abdomen/Pelvis CT 07/28/25 17:02 IMPRESSION: No definite abdominal mass or metastatic disease identified Mild gastric wall thickening could raise possibility for gastritis. Impression dictated by: Hayden Collado M.D. 07/28/2025 6:11 PM Dictation Location: [id number]-[id number] Electronically authenticated by: [id number] Y Date: 07/28/2025 18:[address] 07/28/25 17:02 IMPRESSION: Emphysematous change. Negative acute pleural-parenchymal disease. Impression dictated by: Hayden Collado M.D. 07/28/2025 5:51 PM Dictation Location: [x+1]-[facility]-29 Electronically authenticated by: [id number] Y Date: 07/28/2025 17:51 Discharge Plan Discharge Chief Complaint: Anxiety Clinical Impression: Acute anxiety Patient Disposition: Home, Self-Care Time of Disposition Decision: 18:16 Condition: Good Mode of Transportation: Private Vehicle Prescriptions / Home Meds: New lorazepam 0.5 mg tablet 0.5 mg PO Q12H PRN (Reason: anxiety) 2 Days Qty: 3 0RF No Action atorvastatin 20 mg tablet 20 mg PO DAILY buspirone 5 mg tablet 5 mg PO TID orphenadrine citrate 100 mg tablet extended release 100 mg PO BID PRN (Reason: muscle spasm) Qty: 14 0RF diclofenac sodium 75 mg tablet,delayed release (DR/EC) 75 mg PO BID PRN (Reason: pain ) Qty: 14 0RF alprazolam 0.25 mg tablet 0.5 mg PO DAILY sertraline 100 mg tablet 200 mg PO DAILY olanzapine 20 mg tablet 20 mg PO DAILY meloxicam 15 mg tablet 15 mg PO DAILY Print Language: Sami Instructions: Anxiety (ED) Referrals: Dg Galo [Primary Care Provider] - 1 week Discharge Date/Time: 07/28/25 18:36
[2025-07-28 17:13] LABS: Hematocrit 40.1 % (42.0-54.0); Hemoglobin 13.5 g/dL (14.0-18.0); Immature Granulocytes Abs Auto 0.02 10^3/uL (0.00-0.03); Immature Granulocytes Pct Auto 0.2 % (0.0-0.5); Lymphocytes Absolute Auto 2.7 10^3/uL (1.2-3.8); Mean Corpuscular HGB Conc 33.7 g/dL (29.9-35.2); Mean Corpuscular Hemoglobin 29.4 pg (25.9-34.0); Mean Corpuscular Volume 87.4 fL (80.0-94.0); Platelet Count 363 10^3/uL (150-450); Red Blood Count 4.59 10^6/uL (4.70-6.10); White Blood Count 9.1 10^3/uL (4.0-11.0)
[2025-07-28 17:31] LABS: Alanine Aminotransferase 36 U/L (16-63); Albumin Globulin Ratio 1.0; Albumin Level 3.6 g/dL (3.4-5.0); Alkaline Phosphatase 91 U/L (46-116); Anion Gap 14.4; Aspartate Amino Transferase 24 U/L (15-37); Blood Urea Nitrogen 41.0 mg/dL (7.0-18.0); Calcium 9.2 mg/dL (8.5-10.1); Carbon Dioxide 27.6 mmol/L (21.0-32.0); Chloride 104 mmol/L (98-107); Estimated GFR (African America >60 (>=60 mL/min/1.73m^2); Estimated GFR (Non-African Ame >60 (>=60 mL/min/1.73m^2); Globulin 3.7 g/dL; Glucose 119 mg/dL (74-106); Potassium 4.0 mmol/L (3.5-5.1); Sodium 142 mmol/L (136-145); Total Protein 7.3 g/dL (6.4-8.2)
== END 2025-07-28 18:36 | disposition home or self-care (01) ==
PROVIDERS: Emergency Provider Student in an Organized Health Care Education/Training Program; PCP Family Medicine
DX: F41.9 Anxiety disorder, unspecified (principal); F17.210 Nicotine dependence, cigarettes, uncomplicated; R63.4 Abnormal weight loss
CPT/HCPCS: 36415; 71250; 74177; 80053; 85025; 99285; Q9967

== ENCOUNTER 2025-09-10 11:46 | Emergency (ER) | payer MEDICARE, MEDICAID, SELFPAY ==
--- OUTSIDE RECORDS SUMMARY | 2025-07-20 05:00 | XMS_ITS ---
Author Organization [facility] vices Address [address] [place], [place] [address] Care Team Providers Care Certified Phlebotomy Technician Name Role Phone Azucena Vargas Primary Care Provider REASON FOR VISIT BANANA CARRIER wellness Encounters Encounter Location Date Provider Diagnosis [address] [id number] 07/20/2025 Azucena Vargas Plan Of Treatment No Information Progress Notes * ANGELOOleDOB:[birth year] (59 yo M)Acc No.[id number]:07/20/2025 Patient:?Ole Stephens :?Azucena Vargas APRN, FNP-CDOB:1965???Age: 59 Y???Sex:MaleDate:07/20/2025Phone:[phone]:[address], [place], [place] Subjective: * Chief Complaints: * N P wellness * Electronic signature of MACHELLE Vincent on 09/10/2025 at 12:30 PM EST Sign off status: Pending * Provider: Yesica Vargas APRN, FNP-C Date: 1 Generated for Printing/Faxing/eTransmitting on:?09/10/2025 12:30 PM EST
--- OUTSIDE RECORDS SUMMARY | 2025-07-24 03:30 | XMS_ITS ---
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 Encounter Location Date Provider Diagnosis Main [address] [place] [id number] 07/24/2025 Alexander Cook Plan Of Treatment No Information Progress Notes * STEPHENSOle AGUILARDOB:[birth year] (59 yo M)Acc No.[id number]:07/24/2025 Patient:?Ole Stephens :?Alexander BlockdDOB:1965???Age:59 Y???Sex:Male Date:07/24/2025Phone:[phone]:[address], [place], [place]: Azucena Vargas Subjective: * Chief Complaints: * N P Wellness Billing Information: * Procedure Codes: * Electronic signature of SHENG Jacob on 09/10/2025 at 12:30 PM ESTSign off status: Pending * Provider: Chip Cook Date: Generated for Printing/Faxing/eTransmitting on:?09/10/2025 12:30 PM EST
--- OUTSIDE RECORDS SUMMARY | 2025-07-28 05:30 | XMS_ITS ---
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 Encounter Location Date Provider Diagnosis [address] [address] 07/28/2025 Azucena Vargas Plan Of Treatment No Information Progress Notes * Ole STEPHENSDOB:[birth year] (59 yo M)Acc No.[id number]:07/28/2025 Progress Notes Patient: Ole Phillips :?Azucena Vargas APRN, FNP-CDOB:1965???Age: 59 Y???Sex:MaleDate:07/28/2025Phone:[phone]:[address], [place], [place] Subjective: * Chief Complaints: * N P Wellness * Electronic signature of MACHELLE Vincent on 09/10/2025 at 12:30 PM EST Sign off status: Pending * Provider: Yesica Vargas APRN, FNP-C Date: Generated for Printing/Faxing/eTransmitting on:?09/10/2025 12:30 PM EST
[2025-09-10 11:50] VITALS: BP 131/81; PULSE 67; TEMP 36.4; O2SAT 100; BMI 18.5
--- NOTE | 2025-09-10 12:01 | XR_ITS ---
The [address] [address] Patient Name: GRACE JURADO MRN: [id number] date: 1965 Sex: M Assigned Patient Location: ER Current Patient Location: ED.MAIN Accession/Order Number: [id number] Exam Date: 09/10/2025 12:20 Report Date: 09/10/2025 13:43 At the request of: ILA SOARES MD Procedure: XR lumbar spine 2-3V 2 views of the lumbar spine INDICATION: Atraumatic pain Comparison: None FINDINGS: Lumbar vertebral heights maintained alignment maintained. Disc space is grossly preserved. Minimal facet hypertrophic changes L5-S1. XR/XR lumbar spine 2-3V IMPRESSION: Negative acute osseous findings. Impression dictated by: Hayden Collado M.D. 09/10/2025 1:43 PM Dictation Location: [place] [address] Electronically authenticated by: [id number] Y Date: 09/10/2025 13:43
--- NOTE | 2025-09-10 12:07 | ED.GENADUL1 ---
HPI HPI - General Adult General Chief complaint: Anxiety Stated complaint: LOWER EXTREMITY NUMBNESS Time Seen by Provider: 09/10/25 11:50 Source: patient Mode of arrival: walk-in Limitations: no limitations History of Present Illness HPI narrative: 59-year-old male presented to the emergency department for numbness in his legs. He has had the symptoms for 5 or 6 months and has had an extensive workup. He had an MRI of his upper back he states and he is scheduled for a lumbar MRI in 2 days. He has no new symptoms. He states he is also anxious. He has no new symptoms. Related Data Home Medications ?Medication ?Instructions ?Recorded ?Confirmed sertraline 100 mg tablet 200 mg PO DAILY 11/27/23 09/10/25 atorvastatin 20 mg tablet 20 mg PO DAILY 09/24/24 09/10/25 levothyroxine 100 mcg tablet 100 mcg PO QDAY 09/10/25 09/10/25 olanzapine 10 mg tablet 10 mg PO .qhs 09/10/25 09/10/25 olanzapine 2.5 mg tablet 2.5 mg PO BID PRN anxiety 09/10/25 09/10/25 pantoprazole 40 mg tablet,delayed 40 mg PO QDAY 09/10/25 09/10/25 release Previous Rx's ?Medication ?Instructions ?Recorded diclofenac sodium 75 mg 75 mg PO BID PRN pain #14 tabs 09/24/24 tablet,delayed release methocarbamol 750 mg tablet 750 mg PO Q6H PRN pain #20 tabs 09/10/25 Allergies Allergy/AdvReac Type Severity Reaction Status Date / Time Penicillins Allergy Mild swelling Verified 09/10/25 11:50 Opioid HPI Opioid Management Most Recent Opioid Data: Last Pain Scale 8 Today, 11:50 Last ED Pain Assessment Today, 12:09 Review of Systems ROS Narrative A ten point review of systems is negative except as noted above. PFSH PFSH Social History Smoking status: Current every day smoker Little interest or pleasure in doing things: not at all Feeling down, depressed, or hopeless: not at all Exam Narrative Exam Narrative: Nurses note and vital signs reviewed General:The patient appears well and in no apparent distress.Patient is resting comfortably on cart. Skin:Warm, dry, no pallor noted.There is no rash noted. Head:Normocephalic, atraumatic Eye: Normal conjunctiva, no drainage Ears, Nose, Mouth, and Throat: oral mucosa is moist. Nares patent. Cardiovascular:Regular Rate and Rhythm Respiratory:Patient is in no distress, no accessory muscle use, lungs are clear to auscultation, no wheezing, rales or rhonchi Back:non-tender, no bruise or rash in his lumbar or elsewhere on his back GI: Soft and nontender Musculoskeletal: His legs are thin. No swelling or bruising or rash. They are symmetric. All joints have full range of motion. Dorsalis pedis pulses are 2+ bilaterally Neurological:A&O, normal speech; motor strength intact in his lower extremities. Psychiatric:Cooperative Constitutional Vital Signs, click to edit/add: Last Vital Signs Temp 97.6 F 09/10/25 11:50 Pulse 67 09/10/25 11:50 Resp 20 09/10/25 11:50 BP 131/81 09/10/25 11:50 Pulse Ox 100 09/10/25 11:50 O2 Del Method Room Air 09/10/25 11:50 Course Vital Signs Vital signs: Vital Signs Temperature 97.6 F 09/10/25 11:50 Pulse Rate 67 09/10/25 11:50 Respiratory Rate 20 09/10/25 11:50 Blood Pressure 131/81 09/10/25 11:50 Pulse Oximetry 100 09/10/25 11:50 Oxygen Delivery Method Room Air 09/10/25 11:50 Temperature 97.6 F 09/10/25 11:50 Pulse Rate 67 09/10/25 11:50 Respiratory Rate 20 09/10/25 11:50 Blood Pressure 131/81 09/10/25 11:50 Pulse Oximetry 100 09/10/25 11:50 Oxygen Delivery Method Room Air 09/10/25 11:50 Medical Decision Making [facility] Narrative Medical decision making narrative: Lumbar films showed no acute findings. He has an MRI scheduled in 2 days and will follow-up with his doctor. He was prescribed Robaxin. Treatment diagnosis and follow-up were discussed with the patient. Differential Diagnosis Differential Diagnosis: Degenerative disc disease, lumbar fracture, muscle pain Imaging Data Lumbar x-rays: Radiologist's impression: ITS Impressions Lumbar Spine X-Ray 09/10/25 12:01 IMPRESSION: Negative acute osseous findings. Impression dictated by: Hayden Collado M.D. 09/10/2025 1:43 PM Dictation Location: [place] [address] Electronically authenticated by: [id number] Y Date: 09/10/2025 13:43 Discharge Plan Discharge Chief Complaint: Anxiety Clinical Impression: Low back pain Patient Disposition: Home, Self-Care Time of Disposition Decision: 13:51 Condition: Good Mode of Transportation: Private Vehicle Prescriptions / Home Meds: New methocarbamol 750 mg tablet 750 mg PO Q6H PRN (Reason: pain) Qty: 20 0RF No Action atorvastatin 20 mg tablet 20 mg PO DAILY diclofenac sodium 75 mg tablet,delayed release (DR/EC) 75 mg PO BID PRN (Reason: pain ) Qty: 14 0RF levothyroxine 100 mcg tablet 100 mcg PO QDAY olanzapine 10 mg tablet 10 mg PO .qhs olanzapine 2.5 mg tablet 2.5 mg PO BID PRN (Reason: anxiety) pantoprazole 40 mg tablet,delayed release (DR/EC) 40 mg PO QDAY sertraline 100 mg tablet 200 mg PO DAILY Print Language: Sammarinese Instructions: Acute Low Back Pain (ED) Referrals: Dg Galo [Primary Care Provider] - 1 week
--- OUTSIDE RECORDS SUMMARY | 2025-09-10 12:31 | XMS_ITS | Patient Health Record ---
Author Organization [facility] Address [address] [place], [place] [id number] Care Team Providers Care Welder 2Nd Shift Name Role Phone Azucena Vargas Primary Care Provider [phone] Alexander Cook Unavailable [phone] Reason For Referral No Information Plan Of Treatment No Information Insurance Providers Payer Name Payer Address Payer Phone Subscriber Number Group Number Insured Name Patient Relationship to Insured Coverage Start Date Coverage End Date [place] [employer] [address] [place] [address] [id number] Jennifer Stephens - patient is the insuredMedicaid CrossoverPo [address] [place], [place] [id number], CharlesSelf - patient is the insured
--- OUTSIDE RECORDS SUMMARY | 2025-09-10 12:31 | XMS_ITS | Clinical Summary ---
Author Organization [facility] Address [address] [place] [address] Care Team Providers Care Shift Supervisor Melting Name Role Phone Unavailable Primary Care Provider Unavailabl e Encounters DateTypeDepartmentCare CkkpGzpgfhocpyx20/06/2025 - 08/10/2025 9:02 PM EST Emergency [facility] [address] [place] [address] Discharge Disposition: ED Dismiss - Never Arrived (100)from Last 3 Months Social History Tobacco UseTypesPacks/DayYears UsedDateSmoking Tobacco: Never AssessedSex and Gender InformationValueDate RecordedSex Assigned at BirthNot on fileLegal Sex Male04/02/2022 10:41 PM EDTGender IdentityNot on fileSexual OrientationNot on file Plan of Treatment Health MaintenanceDue DateLast DoneCommentsCT Ioaabjwtotao06/12/1967Colonoscopy 1966Colorectal Cancer Rzykiqfxe49/12/1967FIT-DNA1966FIT1966 FOBT1966Medicare Annual Wellness (AWV)1965 9308Xgiedfdakixpd84/12/1967 Depression Lqfaunfqx28/12/1979Hepatitis B Vaccines (1 of 3 - 19+ 3-dose series) 1985Pneumococcal Vaccine: Pediatrics (0 to 5 Years) and At-Risk Patients (6 to 64 Years) (1 of 2 - PCV)1985Adult Zmnmsti3010/16/1988Zoster Vaccines (1 of 2)2016COVID-19 Vaccine (1 - 2024- season)2025Influenza Vaccine (#1)509/, 07/08/2019, 06/22/2017, Additional history existsHIB VaccinesAged OutNo longer eligible based on patient's age to complete this topicHPV VaccinesAged OutNo longer eligible based on patient's age to complete this topicIPV VaccinesAged OutNo longer eligible based on patient's age to complete this topicMeningococcal B VaccineAged OutNo longer eligible based on patient's age to complete this topicMeningococcal VaccineAged OutNo longer eligible based on patient's age to complete this topicRotavirus VaccinesAged Out No longer eligible based on patient's age to complete this topic [address] [place] [address]
--- OUTSIDE RECORDS SUMMARY | 2025-09-10 12:31 | XMS_ITS | Clinical Summary ---
[facility] Address [id number] [address] [place] [address] Care Team Providers Care Home Visit Field Care Manager Name Role Phone Dg Galo DO Primary Care Provider [phone] Allergies Active AllergyReactionsCriticalityNoted DateCommentsPenicillinsSwelling 12/06/2009 localized to [...] tablets (200 mg total) by mouth nightly.Active baclofen (LIORESAL) 10 mg tablet Take 1 tablet (10 mg total) by mouth 2 (two) times a day as needed for muscle spasms. 60 tablet 5Active gabapentin (NEURONTIN) 600 mg tablet Indications:Thoracic spondylosis without myelopathy,Lumbar spondylosisTake 1 tablet (600 mg total) by mouth 3 (three) times a day. 90 tablet 5Active diclofenac (VOLTAREN) 75 mg EC tablet Indications:Disc displacement, lumbar,Disorder of sacrum,Thoracic spondylosis without myelopathyTake 1 tablet (75 mg total) by mouth in the morning and 1 tablet (75 mg total) before bedtime. 60 tablet 5Active gabapentin (NEURONTIN) 600 mg tablet Indications:Thoracic spondylosis without myelopathy,Lumbar spondylosisTake 1 tablet (600 mg total) by mouth 3 (three) times a day. 90 tablet Discontinued(Reorder) meloxicam (MOBIC) 15 mg tablet Take 1 tablet (15 mg total) by mouth in the morning. 30 tablet Discontinued Active Problems ProblemNoted DateDiagnosed DateThoracic spondylosis without rdtdyibvsz14/11/2025 Chronic idiopathic ykegxcoizequ52/06/2024External hemorrhoid, jizhnjji59/06/2024 History of drug abuse in /06/2024Esophageal hairob3807/01/2023 Lvralpxmrzjibx12/27/2023Loss of stnvpwba49/27/2023Mixed nspgvceejumwgx31/27/2023 Xqhtqfj8307/01/2023Vitamin B12 czesknqrak91/27/2023Orthostatic hypotension 12/15/2009nxiety disorder, pgqadjhguqm59/07/2010Depressive hlcmfsyy34/07/2010 Ywhymoriumgs83/07/2010ipolar 2 vcowznfv54/04/2010 Overview (03/15/2025): 2002 Drug abuse12/06/2009 Overview (03/15/2025): denies since 2005 ETOH abuse12/06/2009 Overview (03/15/2025): denies since 2005 Encounters DateTypeDepartmentCare JqaqWozugxrstro77/18/2025 8:38 AM EST - 08/22/2025 11:59 PM ESTHospital Encounter [facility] - Radiology [address] [place] [address] Zarina Holt APRN-ORDER TAKERS SUPERVISOR Disorder of sacrum Discharge Disposition: Home08/22/2025 8:00 AM ESTOffice Visit [facility] [address] [place] [address] Zarina Holt, SILICATOR-ORDER TAKERS SUPERVISOR Disc displacement, lumbar (Primary Dx); Disorder of sacrum; Thoracic spondylosis without myelopathy; Lumbar mwhsmjgxhmo71/18/8525Jzdull71/06/2025 6:38 AM EST - 08/10/2025 11:59 PM ESTHospital Encounter [facility] - MRI Imaging [address] [place] [address] Jackelin Omalley PA-C Thoracic spondylosis without myelopathy; Thoracic spine pain Discharge Disposition: Home08/09/2025 12:12 PM EST - 08/09/2025 11:59 PM EST Hospital Encounter [facility] - Radiology [address] [place] [address] Jackelin Omalley PA-C Chronic pain of left knee Discharge Disposition: Home08/09/2025 12:10 PM EST - 08/09/2025 12:11 PM EST Hospital Encounter [facility] - Radiology [address] [place] [address] Jackelin Omalley PA-C Chronic pain of right knee Discharge Disposition: Home08/09/20253441Fvynuk37/17/2025Telephone [facility] [address] [place] [address] Leny Madsen RN 07/19/2025 10:45 AM EDTOffice Visit [facility] [address] [place] [address] Jackelin Omalley PA-C Thoracic spine pain (Primary Dx); Thoracic spondylosis without myelopathy; Lumbar mvaumdlrioy16/15/9767Yehgol98/14/2025Telephone [facility] General Surgery [address] [place] [address] Gustavo Castro, 07/17/2025 11:59 PM EDTAnesthesia Event [facility] Surgery [address] [place] [address] Costa Brooke, 07/13/2025 1:50 PM EDTSupport Visit [facility] - Pre Admit [address] [place] [address] 07/12/2025Telephone [facility] [address] [place] [address] Jackelin Omalley PA-C 07/11/2025 9:00 AM EDTOffice Visit [facility] General Surgery [address] [place] [address] Monica Ortiz APRN-SAEID Weight loss (Primary Dx); Nausea and vomiting, unspecified vomiting type; Marijuana abuse07/09/2025 2:09 PM EDT - 07/09/2025 2:52 PM EDTEmergency [facility] - Emergency [address] [place] [address] Open wound of chin, initial encounter (Primary Dx) Discharge Disposition: Home07/09/20257791Ljmtik26/23/2025Telephone [facility] [address] [place] [address] Steffi Israel, FLORENCIA 06/23/2025 10:07 AM EDT - 06/23/2025 10:14 AM EDTSurgery [facility] - Pain Procedures [address] [place] [address] Kota Petty MD INJECTION BLOCK NERVE MEDIAL BRANCH Bilat T 3/4, 4/5 [41313 (CPT??)]06/23/2025 9:23 AM EDT - 06/23/2025 11:59 PM EDTHospital Encounter [facility] Pain Procedures [address] [place] [address] Kota Petty MD Discharge Disposition: Home06/23/2025 8:45 AM EDT - 06/23/2025 9:22 AM EDT Hospital Encounter [facility] - Radiology [address] [place] [address] Kota Petty MD Thoracic spondylosis without myelopathy Discharge Disposition: Home06/23/2025Telephone [facility] [address] [place] [address] Stacie Carranza RN 06/16/2025Orders Only [facility] [address] [place] [address] Steffi Israel, FLORENCIA 06/16/2025Telephone [facility] [address] [place] [address] Steffi Israel, FLORENCIA from Last 3 Months Family History Medical HistoryRelationNameCommentsDiabetesFatherHypertensionFatherHypertension MotherRelationNameStatusCommentsFatherDeceasedMotherDeceased Social History Tobacco UseTypesPacks/DayYears UsedDateSmoking Tobacco: Every DayCigarettes Smokeless Tobacco: Never Tobacco Cessation:Ready to Q uit: Not Asked; Counseling Given: Not Answered Alcohol UseStandard Drinks/WeekCommentsNot Currently0 (1 standard drink = 0.6 oz pure alcohol)soberChildcareAnswerDate AbboopybTlcraaklaZvbcomi33/12/2019 EmploymentAnswerDate VrdyzfpcZcetmvymqtVmevbwd21/12/2019Hunger ScreeningAnswer Date RecordedWithin the past 12 months we worried whether our food would run out before we got money to buy more.Never True08/22/2025Within the past 12 months the food we bought just didn't last and we didn't have money to get more.Never True08/22/2025Sex and Gender InformationValueDate RecordedSex Assigned at Not on fileLegal SoiIeul0205/10/2015 11:28 AM EDTGender IdentityNot on fileSexual OrientationNot on file Last Filed Vital Signs Vital SignReadingTime TakenCommentsBlood Gshicmmx814/6708/22/2025 8:02 AM EST Xwovy967708/22/2025 8:02 AM GYIZtdzjecpdsg63.6 ??C (97.8 ??F)07/09/2025 2:13 PM EDTRespiratory Ijkp1480 8:02 AM ESTOxygen Wokprqczht223%07/19/2025 10:37 AM EDTInhaled Oxygen Concentration--Mgiove62.7 kg (114 lb)08/22/2025 8:02 AM EST Zohwsq324.3 cm (5' 9 )08/22/2025 8:02 AM ESTBody Mass Index16.8308/22/2025 8:02 AM EST Plan of Treatment DateTypeDepartmentCare Team (Latest Contact Info)Gpasiehzilv31/09/2025 11:15 AM ESTAppointment [facility] [address] [facility] [place] [address] Zarina Holt APRN-ORDER TAKERS SUPERVISOR [address] [place] [address] 10/02/2025 8:45 AM ESTOffice Visit [facility] [address] [facility] [place] [address] Zarina Holt APRN-ORDER TAKERS SUPERVISOR [address] [place] [address] Health MaintenanceDue DateLast DoneCommentsTobacco Qkenhejmug58/12/1967 Depression Ywerfcpha40/12/1979Adult BMI Follow Up Plan1984Zoster (Shingles) Vaccine (1 of 2)2016DTaP,Tdap and Td Vaccines (1 - Tdap) dult BMI Aexirzdqn85Tobacco Screening Influenza XujiaapRdwodvrgs82/24/2025, 06/22/2020, 07/08/2019, Additional history exists Medical Devices Not on file Procedures Procedure NamePriorityDate/TimeAssociated DiagnosisCommentsXR HIPS BILAT W OR WO PELVIS 5+ EDZVedvequ04/18/2025 8:53 AM EST Disorder of sacrum MR THORACIC SPINE WO VQMWMrrvnzj86/06/2025 7:46 AM EST Thoracic spondylosis without myelopathy Thoracic spine pain XR KNEE LT 3 GPJTbwgsod57/05/2025 12:33 PM EST Chronic pain of left knee XR KNEE RT 3 YIGPjbntkc29/05/2025 12:32 PM EST Chronic pain of right knee FL FLUOROSCOPY UP TO 1 WWBOWocrcld69/19/2025 9:55 AM EDT Thoracic spondylosis without myelopathy WI INJ DX/THER AGNT PARAVERT FACET JOINT,IMG GUIDE,CERV/THORAC, 1ST LEVEL 06/23/2025 9:50 AM EDT Thoracic spondylosis without myelopathy Special Needs Echo 06/08 from Last 3 Months Results * X-ray hips bilateral with or without pelvis 5+ views (08/22/2025 8:53 AM EST) Anatomical RegionLateralityModalityLower Extremities, MSK, HipBilateral Computed RadiographySpecimen (Source)Anatomical Location / Laterality Collection Method / VolumeCollection TimeReceived Time08/22/2025 9:17 AM EST Narrative 08/22/2025 9:19 AM EST BILATERAL HIPS INCLUDING PELVIS 5 VIEW COMPARISON: ??None. HISTORY: ??Disorder of sacrum. Chronic hip pain. FINDINGS: AP pelvis, AP right and left hips, and bilateral frog leg lateral radiographs of the hips obtained,5 total images. ??No evidence for an acute fracture or dislocation of the pelvis or hips. ??No destructive lesion. Hypertrophic change of the left. The right femoral head neck junctions, which can be seen with femoral acetabular impingement. There is mild superolateral right hip joint space narrowing. Left hip joint space is well-maintained. Mild spurring of both hips. IMPRESSION: Chronic and degenerative changes detailed above. Finalized by Cesar Thomson MD on 08/22/2025 9:19 AM Procedure Note Cesar Thomson MD - 08/22/2025 BILATERAL HIPS INCLUDING PELVIS 5 VIEW COMPARISON: None. HISTORY: Disorder of sacrum. Chronic hip pain. FINDINGS: AP pelvis, AP right and left hips, and bilateral frog leg lateralradiographs of the hips obtained, 5 total images. No evidence for anacute fracture or dislocation of the pelvis or hips. No destructivelesion. Hypertrophic change of the left. The right femoral head neckjunctions, which can be seen with femoral acetabular impingement. There is mild superolateralright hip joint space narrowing. Left hip joint space is well-maintained.Mild spurring of both hips. IMPRESSION: Chronic and degenerative changes detailed above. Finalized by Cesar Thomson MD on 08/22/2025 9:19 AM Authorizing ProviderResult TypeResult StatusSayoselin Holt APRN-[facility] ORDERABLESFinal Result * MR thoracic spine without contrast (08/10/2025 7:46 AM EST)Anatomical Region LateralityModalityMSK, Neuro, Spine, T-spine, Spine CoveraN/AMagnetic ResonanceSpecimen (Source)Anatomical Location / LateralityCollection Method / VolumeCollection TimeReceived Time08/10/2025 8:04 AM EST Narrative 08/10/2025 8:11 AM EST History: Thoracic spondylosis without myelopathy. Thoracic spine pain Procedure: MR thoracic spine without contrast Findings: There is no prior MR thoracic spine available for comparison. MR thoracic spine without contrast demonstrates exaggeration of the normal upper thoracic kyphosis.The thoracic vertebra have normal signal and height without evidence of fracture or destructive bony abnormality. There are mild degenerative changes within the disks without large disc herniation. There is no significant spinal or foraminal stenosis. The tip of the conus medullaris is not completely visualized but likely terminates at the L2 level. There is no definite cord signal abnormality or significant impingement. There is no significant edema within the spine or paraspinal tissues. Impression: There is no significant abnormality of the thoracic spine. Finalized by Stevan Hagen MD on 08/10/2025 8:11 AM Procedure Note Nathan Hagen MD - 08/10/2025 History: Thoracic spondylosis without myelopathy. Thoracic spine pain Procedure: MR thoracic spine without contrast Findings: There is no prior MR thoracic spine available for comparison. MR thoracic spine without contrast demonstrates exaggeration of the normalupper thoracic kyphosis. The thoracic vertebra have normal signal andheight without evidence of fracture or destructive bony abnormality. Thereare mild degenerative changes within the disks without large discherniation. There is no significant spinal or foraminal stenosis. The tip of the conus medullaris is not completely visualized but likely terminates at the J4kgpay. There is no definite cord signal abnormality or significantimpingement. There is no significant edema within the spine or paraspinaltissues. Impression: There is no significant abnormality of the thoracic spine. Finalized by Stevan Hagen MD on 08/10/2025 8:11 AM Authorizing ProviderResult TypeResult StatusMebryce Omalley [facility] MRI ORDERABLESFinal Result * X-ray knee left 3 views (08/09/2025 12:33 PM EST)Anatomical RegionLaterality ModalityLower Extremities, MSK, KneeLeftComputed RadiographySpecimen (Source) Anatomical Location / LateralityCollection Method / VolumeCollection Time Received Time08/09/2025 1:00 PM EST Narrative 08/09/2025 1:00 PM EST History: Pain Exam/Technique: Frontal lateral and oblique views of the left knee were obtained. Comparison: ??None Findings: There is no evidence for an acute osseous abnormality. No significant degenerative changes are seen. No joint effusions are identified. IMPRESSION: Normal left knee. Finalized by Roberto Fisher MD on 08/09/2025 1:00 PM Procedure Note Roberto Fisher MD - 08/09/2025 History: Pain Exam/Technique: Frontal lateral and oblique views of the left knee wereobtained. Comparison: None Findings: There is no evidence for an acute osseous abnormality. Nosignificant degenerative changes are seen. No joint effusions areidentified. IMPRESSION: Normal left knee. Finalized by Roberto Fisher MD on 08/09/2025 1:00 PM Authorizing ProviderResult TypeResult StatusPabryce Omalley [facility] ORDERABLESFinal Result * X-ray knee right 3 views (08/09/2025 12:32 PM EST)Anatomical RegionLaterality ModalityLower Extremities, MSK, KneeRightComputed RadiographySpecimen (Source) Anatomical Location / LateralityCollection Method / VolumeCollection Time Received Time08/09/2025 12:53 PM EST Narrative 08/09/2025 12:53 PM EST History: Pain Exam/Technique: Frontal lateral and oblique views of the right knee were obtained. Comparison: ??None Findings: There is no evidence for an acute osseous abnormality. No significant degenerative changes are seen. No joint effusions are identified. IMPRESSION: Normal right knee. Finalized by Roberto Fisher MD on 08/09/2025 12:53 PM Procedure Note Roberto Fisher MD - 08/09/2025 History: Pain Exam/Technique: Frontal lateral and oblique views of the right knee were obtained. Comparison: None Findings: There is no evidence for an acute osseous abnormality. Nosignificant degenerative changes are seen. No joint effusions areidentified. IMPRESSION: Normal right knee. Finalized by Roberto Fisher MD on 08/09/2025 12:53 PM Authorizing ProviderResult TypeResult Krishna [facility] ORDERABLESFinal Result * Fluoroscopy less than one hour (06/23/2025 9:55 AM EDT)Specimen (Source) Anatomical Location / LateralityCollection Method / VolumeCollection Time Received Time Narrative SYSTEMGENERATED, DOCUMENTATION - 06/23/2025 9:55 AM EDT No Reading Required. This procedure does not require a formal dictation. Non-Radiologist provider performed procedures can be reviewed under Post-Op, Procedure or Progress notes. For full report details, please reach out to your physician. ??Effective 02/19/2021 this image will be visible to you in MyChart. Authorizing ProviderResult TypeResult Crystal DOUGLAS FLUOROSCOPY ORDERABLESFinal Result from Last 3 Months Insurance Care Teams Team MemberRelationshipSpecialtyStart DateEnd Date Dg Galo DO [address] [facility] [address] [place] [address] PCP - GeneralOsteopathic Kmoavyjz95/22/25
--- OUTSIDE RECORDS SUMMARY | 2025-09-10 12:31 | XMS_ITS | Clinical Summary ---
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 180 tablet /ctive levothyroxine (Synthroid, Levoxyl) 100 MCG tablet Indications:Hypothyroidism, unspecifiedTake 1 tablet (100 mcg) by mouth in the morning. Take before meals. 100 tablet 5Active pantoprazole (ProtoNix) 40 MG EC tablet Indications:Gastroesophageal reflux disease with esophagitis without hemorrhage Take 1 tablet (40 mg) by mouth Daily Do not crush, chew, or split. 90 tablet /6Active Additional Information Patient taking differently:40 mg Oral Daily,(No times of day reported), Do not crush, chew, or split., Reported on 08/24/2025 sucralfate (Carafate) 1 g tablet Indications:Gastric pain,Nausea [...] (20 mg) by mouth Daily 30 tablet 6Active Additional Information Patient taking differently:20 mg Oral Daily,(No times of day reported), Reported on 08/24/2025 gabapentin (Neurontin) 600 MG tablet Take 600 mg by mouth in the morning and 600 mg in the evening and 600 mg before bedtime.5Active baclofen (Lioresal) 10 MG tablet Take 10 mg by mouth 2 (two) times a day as kyxmum0606/06/2025tive OLANZapine (ZyPREXA) 10 MG tablet Indications:Reactive depression (situational),Bipolar disorder, in partial remission, most recent episode mixed (HCC)Take 1 tablet (10 mg) by mouth at bedtime 90 tablet 5Active hydrOXYzine pamoate (Vistaril) 50 MG capsule Indications:AnxietyTake 1-2 capsules (50-100 mg) by mouth every 6 (six) hours if needed for anxiety 90 capsule 5Active OLANZapine (ZyPREXA) 2.5 MG tablet Indications:Bipolar disorder, in partial remission, most recent episode mixed (HCC)Take 1 tablet (2.5 mg) by mouth 2 (two) times a day as needed (acute anxiety) 60 tablet 5Active hydrOXYzine pamoate (Vistaril) 50 MG capsule Indications:AnxietyTake 1 capsule (50 mg) by mouth every 6 (six) hours if needed for anxiety 90 capsule 111Discontinued(Reorder) OLANZapine (ZyPREXA) 5 MG tablet Indications:Anxiety,Reactive depression (situational)Take 1 tablet (5 mg) by mouth at bedtime 90 tablet Discontinued(Reorder) meloxicam (Mobic) 15 MG tablet Take 15 mg by mouth in the morning.08/16/2025Discontinued Active Problems ProblemNoted DateDiagnosed DateUnintentional weight loss08/11/2025Nausea and uwdstqpn98/07/2025bdominal pain of multiple sites08/11/2025Persistent depressive jhmtatuk61/05/2025Chronic idiopathic qhvfimgmgxmc00/06/2024External hemorrhoid, zgadtobm25/06/2024History of drug abuse in vuzglxmem68/06/2024 History of ETOH abuse12/09/20234676Dkcifeji93/27/2023nxiety disorder, unspecified 07/01/2023ipolar zmsolfxd75/27/2023eficiency of other specified B group /27/2023Vitamin B12 mrdiyrexxf95/27/2023Esophageal joeldr1707/01/2023 Ssemqnmjzhvqxk47/27/2023Mixed klqpadpfrnkjsl58/27/6791Oyyzozr74/27/2023 Orthostatic nadxlrrrone02/13/2010Dizziness and /07/2010Palpitations 12/09/2009 Resolved Problems ProblemNoted DateDiagnosed DateResolved ZzylYrfwufyintm91rug abuse Overview (12/09/2023): denies since 2005 ETOH abuse Overview (12/09/2023): denies since 2005 Encounters DateTypeDepartmentCare FzghUiqzgqeroaa16/19/2025Telephone [facility] [address] [place] [address] Dg Galo, DO Medication Hxkoomjs53/17/1540Oljvqc92/13/2025Telephone [facility] [address] [place] [address] Dg Galo, DO Medication Lrledneg29/12/2025 9:20 AM ESTOffice Visit [facility] [address] [place] [phone] Dg Galo, DO History of drug abuse in remission ([facility]) (Primary Dx); Anxiety; Reactive depression (situational); Bipolar disorder, in partial remission, most recent episode mixed (HCC) 08/16/2025amboo flowsheet [facility] [address] [place] [address] Dg Galo, DO 08/16/20255708Zkyuss45/10/4226Arubxz53/10/2025Telephone [facility] [address] [place] [address] Dg Galo, DO 08/11/2025 9:15 AM ESTConsult [facility] [address] [place] [address] Samuel Taveras MD Unintentional weight loss (Primary Dx); Nausea and vomiting, unspecified vomiting type; Abdominal pain of multiple sites; Chronic vambpuyjgodz24/07/1700Xjfbor38/05/2025 11:30 AM ESTAncillary Procedure [facility] [address] [place] [address] Smoker; Unintentional weight loss08/09/20252645Shqrzu32/31/2025Telephone [facility] [address] [place] [address] Dg Galo, DO 07/31/2025Telephone [facility] [address] [place] [address] Duncan Cruz LPN 07/28/2025Results Follow-Up [facility] [address] [place] [address] Dg Galo, DO CBC and differential, Comprehensive metabolic panel, Lipid panel, Additional followed-up results: Telephone [facility] [address] [place] [address] Dg Galo, DO Qtoszmjc71/22/2025 8:20 AM EDTOffice Visit [facility] [address] [place] [address] Dg Galo, DO Wellness examination (Primary Dx); Screening for colon cancer; Severe back pain; Anxiety; Encounter for screening for coronary artery disease; Smoker; Reactive depression (situational); Hypothyroidism, unspecified; Gastroesophageal reflux disease with esophagitis without hemorrhage; Gastric pain; Nausea and vomiting, unspecified vomiting type; Mixed hyperlipidemia; Unintentional weight loss; Gczotpwlcf20/22/2025Telephone [facility] [address] [place] [address] Dg Galo, DO Med Refill; Medication Luthpyfo94/22/2025amboo flowsheet [facility] [address] [place] [address] Dg Galo, DO 07/26/20251231Yxkldv87/20/2025Telephone [facility] [address] [place] [address] Dg Galo, DO Appointment Rusgypp8807/07/2025bstract [facility] [address] [place] [phone] Unallocated, Noms Provider, 06/26/2025Refill [facility] [address] [place] [address] Munira Freedman NP Situational mixed anxiety and depressive disorder ; Uquwwib0406/22/2025bstract [facility] [address] [place] [phone] Unallocated, Noms Provider, 06/22/2025[facility]phone [facility] [address] [place] [phone] Tessa Castañeda 06/21/2025 11:30 AM EDTOffice Visit [facility] [address] [place] [phone] Munira Freedman NP Pre-operative clearance (Primary Dx)06/21/2025Telephone [facility] [address] [facility] [address] [place] [address] Carlos Enrique Maguire MD 06/21/2025amb flowsheet [facility] [address] [facility] [address] [place] [address] Munira Freedman, JERRY 06/21/20256768Abtmuo76/11/2025 4:00 PM EDTOffice Visit [facility] [address] [facility] [address] [place] [address] Munira Freedman, GARDENER Weight loss (Primary Dx); Gastric pain; Nausea and vomiting, unspecified vomiting type; Dysphagia, unspecified type; Pericardial effusion ([facility]); Skin fsojhewqy30/11/2025amboo [facility]sheet [facility] [address] [facility] [address] [place] [address] Munira Freedman, JERRY 06/15/20253065Sjteaw98/10/2025Telephone [facility] [address] [facility] [address] [place] [address] Munira Freedman, JERRY 06/13/2025bstract [facility] [address] [facility] [address] [place] [address] Carlos Enrique Maguire MD from Last 3 Months Immunizations ImmunizationAdministration DatesNext DueInfluenza, injectable, quadrivalent 07/08/2019Influenza, injectable, quadrivalent, preservative free06/22/2020 Influenza, seasonal, injectable, preservative free06/28/2025Influenza, seasonal, intradermal, preservative free06/22/2017,07/06/2015,07/07/2014Td (adult), 5 Lf tetanus toxoid, preservative free, atzrjbcr56/02/2025 Family History Medical HistoryRelationNameCommentsCoronary artery diseaseFatherHyperlipidemia FatherHypertensionFatherStrokeFatherRelationNameStatusCommentsFatherMother Social History Tobacco UseTypesPacks/DayYears UsedDateSmoking Tobacco: Every DayCigarettes Smokeless Tobacco: Never Tobacco Cessation:Ready to Q uit: No; Counseling Given: Yes Alcohol UseStandard Drinks/WeekCommentsNever0 (1 standard drink = 0.6 oz pure alcohol)Caffeine intake : chocolatePHQ-2AnswerDate RecordedPatient Health Questionnaire-2 Ckviz66710/16/2024Sex and Gender InformationValueDate RecordedSex Assigned at BirthNot on fileLegal UttRhrc3912/17/2022 6:37 PM EDTGender Identity Not on fileSexual OrientationNot on file Last Filed Vital Signs Vital SignReadingTime TakenCommentsBlood Vzkvqdho304/7408/16/2025 9:21 AM EST Ubhww907608/16/2025 9:21 AM SZEKlbbgbnoeav15.1 ??C (98.8 ??F)08/16/2025 9:21 AM ESTRespiratory Zwuy639906/21/2025 11:32 AM EDTOxygen Uwfbhimkha71%08/16/2025 9:21 AM ESTInhaled Oxygen Concentration--Hjsbol57.6 kg (127 lb)08/16/2025 9:21 AM EST Uafedr678.3 cm (5' 9 )08/16/2025 9:21 AM ESTBody Mass Index18.7508/16/2025 9:21 AM EST Plan of Treatment DateTypeDepartmentCare Team (Latest Contact Info)Nxtbsfpvniq10/22/2025 9:30 AM ESTOffice Visit [facility] [address] [facility] [address] [place] [address] Samuel Taveras MD [address] [facility] [address] [place] [address] 10/17/2025 10:00 AM ESTOffice Visit [facility] [address] [place] [address] Dg Galo DO [address] [place] [address] Health MaintenanceDue DateLast DoneCommentsCT Fxfqszcenvnv29/12/1967Colonoscopy 1966Colorectal Cancer Qyvwecjah63/12/1967FIT-DNA1966FIT1966 FOBT1966 1170Vriyjesomqyoo99/12/1967Pneumococcal Vaccine: Pediatrics (0 to 5 Years) and At-Risk Patients (6 to 64 Years) (1 of 2 - PCV)1985COVID-19 Vaccine (1 - 2024- season)2025Medicare Annual Wellness (AWV)02/28/2026 02/28/2025, 02/28/2025, 12/09/2023Influenza LrfjgvcHaibyksjg73/24/2025, 06/22/2020, 07/08/2019, Additional history exists Procedures Procedure NamePriorityDate/TimeAssociated DiagnosisCommentsCT CHEST W IV NXFPBTJZGwvdstp87/05/2025 11:53 AM EST Smoker Unintentional weight loss SED RATE BY MODIFIED QMAPQBMDTFNsuuyet74/23/2025 8:42 AM EDT Unintentional weight loss C-REACTIVE KVZBSPIBlmtvdk85/23/2025 8:42 AM EDT Unintentional weight loss T4, KIWGBjnkjdl22/23/2025 8:42 AM EDT Hypothyroidism, unspecified Unintentional weight loss PVAKmqexjc32/23/2025 8:42 AM EDT Hypothyroidism, unspecified Unintentional weight loss LIPID XUCFBAletmcv00/23/2025 8:42 AM EDT Wellness examination Encounter for screening for coronary artery disease COMPREHENSIVE METABOLIC HAPKDYmbtsrb86/23/2025 8:42 AM EDT Wellness examination Encounter for screening for coronary artery disease CBC (INCLUDES DIFF/PLT)Fmsbpjk6607/27/2025 8:42 AM EDT Wellness examination Encounter for screening for coronary artery disease from Last 3 Months Results * CT chest w IV contrast (08/09/2025 11:53 AM EST)Anatomical RegionLaterality ModalityBody, ChestComputed TomographySpecimen (Source)Anatomical Location / LateralityCollection Method / VolumeCollection TimeReceived Time08/10/2025 11:09 AM EST Impressions 08/10/2025 11:34 AM EST When compared to prior examination there has been no interval change. There is no acute process LUNG-RADS 2: BENIGN APPEARANCE OR BEHAVIOR--CONTINUE ANNUAL CT LUNG SCREENING IN [address] scans at this facility use dose modulation, iterative reconstruction, and/or weight based dosing when appropriate to reduce radiation dose to as low as reasonably achievable. ELECTRONICALLY SIGNED BY: Nitza Villagomez DO Narrative 08/10/2025 11:34 AM EST EXAM: CT CHEST NON-CONTRAST NODULE PROTOCOL/LOW DOSE CT CHEST (LDCT) DATE:08/09/2025 11:23 AM CTDI is 15.33 mGy and DLP is 586.58 mGy-cm. CLINICAL INDICATION:History of smoking. Lung nodule screening unintententional weight loss COMPARISON: July 28, 2025 TECHNIQUE: Low-dose helical CT was acquired without intravenous contrast from the lung apices to bases at 5 mm slices with axial reconstruction at 2.5 mm and 2 mm reconstruction in the coronal and sagittal plane. 5 x 2 mm MIP coronal were also generated. All CT scans at this facility use dose modulation, iterative reconstruction, and/or weight based dosing when appropriate to reduce radiation dose to as low as reasonably achievable. Findings: Mediastinum: The thyroid gland is not enlarged. No pathologically enlarged lymph nodes are seen. There is no evidence for aneurysm. No pericardial effusion is seen. In the superior aspect of the trachea there is debris seen layering. The central airways are patent. Lungs/pleura: No consolidating pneumonia, pneumothorax or pleural effusion is seen. Bullous diseaseis seen in the apices. Bones/soft tissue: There is a slight dextroscoliosis in the mid thoracic spine. The bony structuresare grossly intact. Upper abdomen: There are no acute findings. Procedure Note Nitza Villagomez DO - 08/10/2025 EXAM: CT CHEST NON-CONTRAST NODULE PROTOCOL/LOW DOSE CT CHEST (LDCT) DATE:08/09/2025 11:23 AM CTDI is 15.33 mGy and DLP is 586.58 mGy-cm. CLINICAL INDICATION:History of smoking. Lung nodule screeningunintententional weight loss COMPARISON: July 28, 2025 TECHNIQUE: Low-dose helical CT was acquired without intravenous contrastfrom the lung apices to bases at 5 mm slices with axial reconstruction at2.5 mm and 2 mm reconstruction in the coronal and sagittal plane. 5 x 2 mmMIP coronal were also generated. All CT scans at this facility use dosemodulation, iterative reconstruction, and/or weight based dosing whenappropriate to reduce radiation dose to as low as reasonably achievable. Findings: Mediastinum: The thyroid gland is not enlarged. No pathologically enlargedlymph nodes are seen. There is no evidence for aneurysm. No pericardialeffusion is seen. In the superior aspect of the trachea there is debrisseen layering. The central airways are patent. Lungs/pleura: No consolidating pneumonia, pneumothorax or pleural effusionis seen. Bullous disease is seen in the apices. Bones/soft tissue: There is a slight dextroscoliosis in the mid thoracicspine. The bony structures are grossly intact. Upper abdomen: There are no acute findings. IMPRESSION: When compared to prior examination there has been no interval change.There is no acute process LUNG-RADS 2: BENIGN APPEARANCE ORBEHAVIOR--CONTINUE ANNUAL CT LUNG SCREENING IN [address] scans at this facility use dose modulation, iterativereconstruction, and/or weight based dosing when appropriate to reduceradiation dose to as low as reasonably achievable. ELECTRONICALLY SIGNED BY: Nitza Villagomez DO Authorizing ProviderResult TypeResult StatusTimtristen Galo [facility] CT PROCEDURES Final Result * Sedimentation rate, automated (07/27/2025 8:42 AM EDT)ComponentValueRef Range Test MethodAnalysis TimePerformed AtPathologist SignatureSed Rate-Bybmdllemx61 0 - 30 mm/hrLABCORPSpecimen (Source)Anatomical Location / LateralityCollection Method / VolumeCollection TimeReceived TimeBloodVenous blood specimen / Arjxvyl0107/27/2025 8:42 AM EDT1 Narrative [facility] - 07/28/2025 8:08 AM EDT Performed at: 01 - [address] [place] ??[id number] Professor Of Family Medicine: Henri Figueroa PhD, Phone: ??[phone] Authorizing ProviderResult TypeResult StatusDg Galo DOL BLOOD ORDERABLESFinal ResultPerforming OrganizationAddressCity/State/ZIP CodePhone Number [facility] * (ABNORMAL) CBC and differential (07/27/2025 8:42 AM EDT)ComponentValueRef RangeTest MethodAnalysis TimePerformed AtPathologist DpyzluctwKQT06.3(H)3.4 - 10.8 x10E3/uLLABCORPRBC4.734.14 - 5.80 x10E6/vZGVDVVIRCrw81.713.0 - 17.7 g/dL PXYBMWHKbn64.137.5 - 51.0 %HJBZQSJWFY5649 - 97 gXCVKVMLUWAS23.026.6 - 33.0 pg OTIDWEEFQSQ60.531.5 - 35.7 g/tZZBLJSCTNDP20.311.6 - 15.4 %KVVDHOUCilthkovn116 150 - 450 x10E3/rLDRCXYSYDgugvlwpjab28Lcd Estab. %LRLJXDYEkcglb49Bbd Estab. % URKHFUXZwiyelqwx2Pqo Estab. %YBZUIGRGru6Enu Estab. %BHOQQGIWzijq1Ott Estab. % LABCORPNeutrophils Abs7.5(H)1.4 - 7.0 x10E3/uLLABCORPLymphs Abs3.4(H)0.7 - 3.1 x10E3/uLLABCORPMonocytesAbs1.0(H)0.1 - 0.9 x10E3/uLLABCORPEos Abs0.20.0 - 0.4 x10E3/uLLABCORPBaso Abs0.10.0 - 0.2 x10E3/uLLABCORPImmature Cxndiunhxmds5Ztm Estab. %LABCORPImmature Grans Abs0.00.0 - 0.1 x10E3/uLLABCORPSpecimen (Source) Anatomical Location / LateralityCollection Method / VolumeCollection Time Received TimeBloodVenous blood specimen / Anukgrj9407/27/2025 8:42 AM EDT 07/27/2025 Narrative [facility] - 07/28/2025 8:08 AM EDT Performed at: [address] [place] [address] ??[id number] Professor Of Family Medicine: Henri Figueroa PhD, Phone: ??[phone] Authorizing ProviderResult TypeResult StatusTimothy L Marion DOLAB BLOOD ORDERABLESFinal ResultPerforming OrganizationAddressCity/State/ZIP CodePhone Number [facility] * C-reactive protein (07/27/2025 8:42 AM EDT)ComponentValueRef RangeTest Method Analysis TimePerformed AtPathologist SignatureC-Reactive Protein Quant<10 - 10 mg/LLABCORPSpecimen (Source)Anatomical Location / LateralityCollection Method / VolumeCollection TimeReceived TimeBloodVenous blood specimen / Unknown 07/27/2025 8:42 AM EDT1 Narrative [facility] - 07/28/2025 8:08 AM EDT Performed at: [address] ??[id number] Professor Of Family Medicine: Henri Figueroa PhD, Phone: ??[phone] Authorizing ProviderResult TypeResult StatusTimothy L Marion DOLAB BLOOD ORDERABLESFinal ResultPerforming OrganizationAddressCity/State/ZIP CodePhone Number [facility] * (ABNORMAL) TSH (07/27/2025 8:42 AM EDT)ComponentValueRef RangeTest Method Analysis TimePerformed AtPathologist SignatureTSH7.650(H)0.450 - 4.500 uIU/mL [facility]PSpecimen (Source)Anatomical Location / LateralityCollection Method / VolumeCollection TimeReceived TimeBloodVenous blood specimen / Unknown 07/27/2025 8:42 AM EDT1 Narrative [facility] - 07/28/2025 8:08 AM EDT Performed at: [address] [place] [address] ??[id number] Professor Of Family Medicine: Henri Figueroa PhD, Phone: ??[phone] Authorizing ProviderResult TypeResult StatusTimothy L Marion DOLAB BLOOD ORDERABLESFinal ResultPerforming OrganizationAddressCity/State/ZIP CodePhone Number [facility] * T4, free (07/27/2025 8:42 AM EDT)ComponentValueRef RangeTest MethodAnalysis TimePerformed AtPathologist GvrfzkfjfX2Voei(Direct)1.040.82 - 1.77 ng/dL [facility]PSpecimen (Source)Anatomical Location / LateralityCollection Method / VolumeCollection TimeReceived TimeBloodVenous blood specimen / Unknown 07/27/2025 8:42 AM EDT1 Narrative [facility] - 07/28/2025 8:08 AM EDT Performed at: - [address] ??[id number] Professor Of Family Medicine: Henri Figueroa PhD, Phone: ??[phone] Authorizing ProviderResult TypeResult StatusDg Bliss Marion DOLAB BLOOD ORDERABLESFinal ResultPerforming OrganizationAddressCity/State/ZIP CodePhone Number [facility] * (ABNORMAL) Lipid panel (07/27/2025 8:42 AM EDT)ComponentValueRef RangeTest MethodAnalysis TimePerformed AtPathologist SignatureCholesterol, Buotg733123 - 199 mg/uCAGHRJMQHmbatzbooduun1449 - 149 mg/dLLABCORPHDL Pigajfbatbh60>39 mg/dL [facility]ABC[facility]PVLDL Cholesterol Jfh621 - 40 mg/dLLABCORPLDL Chol Calc (NIH)104(H)0 - 99 mg/dLLABCORPSpecimen (Source)Anatomical Location / LateralityCollection Method / VolumeCollection TimeReceived TimeBloodVenous blood specimen / Lxkvwro8407/27/2025 8:42 AM EDT1 Narrative [facility] - 07/28/2025 8:08 AM EDT Performed at: - [address] ??[id number] Professor Of Family Medicine: Henri Figueroa PhD, Phone: ??[phone] Authorizing ProviderResult TypeResult StatusTimtristen Izaiah Marion DOLAB BLOOD ORDERABLESFinal ResultPerforming OrganizationAddressCity/State/ZIP CodePhone Number [facility] * (ABNORMAL) Comprehensive metabolic panel (07/27/2025 8:42 AM EDT)Component ValueRef RangeTest MethodAnalysis TimePerformed AtPathologist SignatureGlucose 102(H)70 - 99 mg/oDDYDMMXHBOR710 - 24 mg/dLLABCORPCreat0.810.76 - 1.27 mg/dL EHJWHSWLHMY293>59 mL/min/1.73LABCORPBUN/Creat Ratio28(H)9 - 94LALYVAUZrakan821 134 - 144 mmol/[facility]PPotassium4.63.5 - 5.2 mmol/SGJTQFQXMswmmske16751 - 106 mmol/LLABCORPCarbon Zgmnfts7237 - 29 mmol/LLABCORPCalcium9.18.7 - 10.2 mg/dL [facility]PProtein Total6.76.0 - 8.5 g/dLLABCORPAlbumin4.23.8 - 4.9 g/dLLABCORP Globulin Total2.51.5 - 4.5 g/dLLABCORPBili Total0.50.0 - 1.2 mg/dLLABCORPAlk Ypqvuenafoy50984 - 123 IU/HKFXUZOVGUW265 - 40 IU/PHQMXOUWTQA178 - 44 IU/L [facility]PSpecimen (Source)Anatomical Location / LateralityCollection Method / VolumeCollection TimeReceived TimeBloodVenous blood specimen / Unknown 07/27/2025 8:42 AM EDT1 Narrative [facility] - 07/28/2025 8:08 AM EDT Performed at: 01 - [facility] ??[id number] Professor Of Family Medicine: Henri Figueroa PhD, Phone: ??[phone] Authorizing ProviderResult TypeResult StatusTimtristen Galo DOLAB BLOOD ORDERABLESFinal ResultPerforming OrganizationAddressCity/State/ZIP CodePhone Number [facility] from Last 3 Months Insurance Care Teams Team MemberRelationshipSpecialtyStart DateEnd Date Dg Galo DO [address] [facility] [address] [place] [address] [facility] Alexander Lassiter MD [address] [place] [address] PCP - Nigel ISLAS07/05/25
[2025-09-10] MEDS: LORAZEPAM 1 MG TABLET PO (12:56)
[2025-09-10 14:00] VITALS: BP 127/81; PULSE 65; O2SAT 99
== END 2025-09-10 14:02 | disposition home or self-care (01) ==
PROVIDERS: Emergency Provider Emergency Medicine; PCP Family Medicine
DX: M54.50 Low back pain, unspecified (principal); F17.200 Nicotine dependence, unspecified, uncomplicated
CPT/HCPCS: 72100; 99283

== ENCOUNTER 2025-09-12 12:37 | Emergency (ER) | payer MEDICARE, MEDICAID, SELFPAY ==
[2025-09-12 12:40] VITALS: BP 165/107; PULSE 71; TEMP 36.7; O2SAT 99; BMI 18.5
--- OUTSIDE RECORDS SUMMARY | 2025-09-12 13:22 | XMS_ITS | CCD ---
Author Organization [facility] Care Team Providers Care Edger Operator Name Role Phone CARLOS ENRIQUE MAGUIRE [...] PURA RUSSELL Consulting Unavailable Josephine Castillo Unavailable [phone] Carlos Enrique Maguire MD Unavailable [phone] Carlos Enrique Maguire MD Primary Care Provider Carlos Enrique Maguire MD Unavailable Carlos Enrique Maguire MD Primary Care Provider Carlos Enrique Maguire II Primary Care Provider Rebeca Dill APRN Attending Provider Jaqui Zeng APRN Attending Provider Anny Bhatti APRN Attending Provider [phone] Carlos Enrique Maguire MD Primary Care Provider Tonya Hare APRN Attending Provider Alexander Lopez MD Primary Care Provider MONICA ORTIZ Attending Unavailable CARLOS ENRIQUE MAGUIRE Referring Unavailable ALEXANDER LOPEZ Primary Care Unavailable Unallocatbessie QUACH, Noms Provider Primary Care Provi alba Benjy Ackerman Attending Unavailab le MekaBenjy fonseca Admitting Unavailab le Andrez Carlos Enrique Primary Care Unavailable Blaine DO, Jean Pierre L Primary Care Provider Carlos Enrique Maguire MD Unavailable RAUDEL CROWLEY Primary Care Unavailable VERHOFF, GABI [...] MAGUIRE, CARLOS ENRIQUE B Primary Care Unavailable KOTA PETTY E Attending Unavailable RYAN KOTA E Referring Unavailable MAGUIRE, CARLOS ENRIQUE B Primary Care Unavailable PETTY, KOTA E Admitting Unavailable PETTY, KOTA E Attending Unavailable MAGUIRE, CARLOS ENRIQUE B Referring Unavailable MAGUIRE, CARLOS ENRIQUE B Primary Care Unavailable VERHOFF, GABI N Referring Unavailable MAGUIRE, CARLOS ENRIQUE B Primary Care Unavailable VERHOFF, GABI N Attending Unavailable VERHOFF, GABI N Referring Unavailable CUTLER, JEAN PIERRE L Primary Care Unavailable VERHOFF, GABI N Attending Unavailable VERHOFF, GABI N Referring Unavailable CUTLER, JEAN PIERRE L Primary Care Unavailable VERHOFF, GABI N Attending Unavailable VERHOFF, GABI N Referring Unavailable CUTLER, JEAN PIERRE L Primary Care Unavailable VERHOFF, GABI N Attending Unavailable MAGUIRE, CARLOS ENRIQUE B Referring Unavailable NADERER, ALEXANDER Primary Care Unavailable NADERER, AELXANDER Primary Care Unavailable RYAN, KOTA E Admitting Unavailable RYAN KOTA E Attending Unavailable MAGUIRE, CARLOS ENRIQUE B Referring Unavailable MAGUIRE, CARLOS ENRIQUE B Primary Care Unavailable PETTY KOTA E Attending Unavailable PETTY KOTA E Referring Unavailable MAGUIRE, CARLOS ENRIQUE B Primary Care Unavailable AHSANHALEY VICTOR Referring Unavailable MAGUIRE, CARLOS ENRIQUE B Primary Care Unavailable VERHOFF, GABI N Attending Unavailable MAGUIRE, CARLOS ENRIQUE B Referring Unavailable MAGUIRE, CARLOS ENRIQUE B Primary Care Unavailable NADERER, ALEXANDER Referring Unavailable NADERER, ALEXANDER Primary Care Unavailable MICHAEL KONG Attending Unavailable HALEY MORRELL Attending Unavailable DORIAN CANADA Attending Unavailable AHSAN, HALEY Corrigan Attending Unavailable HALEY MORRELL Referring Unavailable AHSANHALEY Referring Unavailable AHSANHALEY Referring Unavailable HEMDORIAN FINCH Referring Unavailable HALEY MORRELL M Attending Unavailable AHSANHALEY Attending Unavailable AHSANHALEY Attending Unavailable JEAN PIERRE GALO L Attending Unavailable CUTJEAN PIERRE MCLAUGHLIN L Referring Unavailable CUTLERJEAN PIERRE L Referring Unavailable OLENA FIGUEROA Attending Unavailable CUTLER JEAN PIERRE L Referring Unavailable CUTLER JEAN PIERRE L Attending Unavailable MICAHEL KONG Attending Unavailable Alexander Lopez MD Unavailable Allergies Allergy ClassificationReported Allergen(s)Allergy TypeDate of OnsetReaction(s) Facility (7 sources)Penicillins; Translations: [PENICILLINS]Drug allergy (disorder) 26-90-9122EpcmyjesYnmMer[facility] ([facility] source)PenicillinDrug AllergyC[facility] Other (20 sources)PenicillinsDrug Smajqmegmib47-84-6464CwxiyzazXGPG [employer] Work Phone: (14 sources)PenicillinsPropensity to adverse reactions to vxcg54-71-8540Abncusih Preclick (1 source)PenicillinsDrug allergy (disorder)80-03-3332[facility]wtfjdfwsS[facility] Rep[facility] (1 source)ALLERGIES NOT ON FILE; Translations: [ALLERGIES NOT ON FILE]Propensity to adverse reactions (disorder)[facility] Repository Medications Current Medications MedicationDrug Class(es)DatesSig (Normalized)Sig (Original)atorvastatin 20 mg oral tablet (20 sources)HMG-CoA Reductase InhibitorStart: 12-10-2023 End: 48-53-2281rpkv 1 tablet by mouth once dailyatorvastatin (Lipitor) 20 MG tablet Indications: Mixed hyperlipidemia Take 1 tablet (20 mg) by mouth Daily 30 tablet 2 07/26/2025 10/24/2025 Activebacitracin zinc 0.5 unt/mg topical ointment (20 sources)Start: 04-14-9218wogtvqgkfr zinc ointment Apply 1 Application topically in the morning and 1 Application before bedtime. 120 g 07/09/2025 ActiveStart: 05-24-2025 End: 15-00-8193kqebivnygs 500 UNIT/GM ointment Indications: Abrasion Apply topically in the morning and before bedtime. 14 g 1 05/24/2025 08/11/2025 Discontinued (Therapy completed)baclofen 10 mg oral tablet (17 sources)gamma-Aminobutyric Acid-ergic AgonistStart: 05-31-2025 End: 71-16-2185fjqg 1 tablet by mouth twice daily as neededbaclofen (Lioresal) 10 MG tablet Take 10 mg by mouth 2 (two) times a day as needed 06/06/2025 Active 24 hr buPROPion hydrochloride 150 mg extended release oral tablet (19 sources)AminoketoneStart: 09-29-2024 End: 49-97-6158avdr 1 tablet by mouth every twenty-four hours in the morning buPROPion XL (Wellbutrin XL) 150 MG 24 hr tablet Indications: Reactive depression (situational) (CMS/HCC) Take 1 tablet (150 mg) by mouth in the morning. Do not crush, chew, or split.. 30 tablet 2 11/09/2024 02/28/2025 Discontinued (Ineffective)busPIRone hydrochloride 5 mg oral tablet (19 sources)Start: 11-09-2024 End: 52-85-9906aqbf 2 tablets by mouth in the morning, [...] tablet 11/09/2024 02/28/2025 Discontinued (Ineffective)Start: 01-22-2024 End: 71-69-5249wjir 1 tablet by mouth in the morningbusPIRone (Buspar) 5 MG tablet Take 5 mg by mouth in the morning and 5 mg before bedtime. 01/22/2024 11/09/2024 Discontinued (Reorder)cephalexin 500 mg oral capsule (1 source)Cephalosporin AntibacterialStart: 68-80-8911xilx 1 capsule by mouth three times dailyCephalexin 500 mg capsule Active 500 MG PO Three times daily 24 04June 30, 2025 12:00am Complies with drug therapyclindamycin 300 mg oral capsule (1 source)Lincosamide AntibacterialStart: 42-71-9555dvsn 1 capsule by mouth every twelve hoursClindamycin HCl 300 MG 1 capsule Orally every 12 hrs for 7 days Jul, Activecyclobenzaprine hydrochloride 5 mg oral tablet (20 sources)Muscle RelaxantStart: 05-24-2025 End: 28-87-8877mntf 1 tablet by mouth three times daily as needed for muscle spasms, then take 2 tablets by mouth at bedtime as needed for muscle spasms cyclobenzaprine (Flexeril) 5 MG tablet Indications: Muscle spasm Take 1 tablet (5 mg) by mouth 3 (three) times a day as needed for muscle spasms May take 2 at bedtime 60 tablet 2 05/24/2025 08/11/2025 Discontinueddiclofenac sodium 75 mg delayed release oral tablet (20 sources)Nonsteroidal Anti-inflammatory DrugStart: 20-40-5046xfynoxaizq sodium (VOLTAREN) 1 % gel Apply 2 g topically in the morning and 2 g at noon and 2 g in the evening and 2 g before bedtime. 100 g 07/09/2025 ActiveStart: 09-24-2024 End: 13-29-2454nvyd 1 tablet by mouth in the morningdiclofenac (Voltaren) 75 MG EC tablet Indications: Severe back pain Take 1 tablet (75 mg) by mouth in the morning and 1 tablet (75 mg) before bedtime. 180 tablet 3 07/26/2025 07/26/2026 Activegabapentin 600 mg oral tablet (20 sources)Anti-epileptic AgentStart: 27-37-5861yplg 1 tablet by mouth in the morning, then take 1 tablet by mouth in the evening, then take 1 tablet by mouth at bedtimegabapentin (Neurontin) 600 MG tablet Take 600 mg by mouth in the morning and 600 mg in the evening and 600 mg before bedtime. 07/19/2025 Active Start: 04-26-2025 End: 41-44-8849whqc 1 capsule by mouth three times dailygabapentin (NEURONTIN) 300 mg capsule Indications: Thoracic spondylosis without myelopathy , Lumbar spondylosis Take 1 capsule (300 mg total) by mouth 3 (three) times a day. 90 capsule 1 05/23/2025 07/19/2025 Discontinued (Reorder)hydrOXYzine pamoate 50 mg oral capsule (12 sources)AntihistamineStart: 81-13-2897tsjd 50-100 mg by mouth every six hours as needed for anxiety and anxiety and anxietyhydrOXYzine pamoate (Vistaril) 50 MG capsule Indications: Anxiety Take 1-2 capsules (50-100 mg) by m outh every 6 (six) hours if needed for anxiety 90 capsule 11 08/16/2025 Active Start: 40-57-9203ztfi 50-100 mg by mouth every six hours as needed for anxiety and anxiety and anxietyhydrOXYzine pamoate (Vistaril) 50 MG capsule Indications: Anxiety Take 1-2 capsules (50-100 mg) by mouth every 6 (six) hours if needed for anxiety 90 capsule 11 08/16/2025 ActiveStart: 07-26-2025 End: 42-29-6761kahi 1 capsule by mouth every six hours as needed for anxiety and anxiety and anxietyhydrOXYzine pamoate (Vistaril) 50 MG capsule Indications: Anxiety Take 1 capsule (50 mg) by mouth every 6 (six) hours if needed for anxiety 90 capsule 11 07/26/2025 08/16/2025 Discontinued (Reorder)ibuprofen 600 mg oral tablet (6 sources)Nonsteroidal Anti-inflammatory DrugStart: 90-16-9341nlzw 1 tablet by mouth every six hours as needed for painibuprofen (MOTRIN) 600 mg tablet Take 1 tablet (600 mg total) by mouth every 6 (six) hours as needed for pain. 30 tablet 07/09/2025 Activelevothyroxine sodium 0.1 mg oral tablet (20 sources)l-ThyroxineStart: 12-10-2023 End: 87-14-3127ixww 1 tablet by mouth before mealtimelevothyroxine (Synthroid, Levoxyl) 100 MCG tablet Indications: Hypothyroidism, unspecified Take 1 tablet (100 mcg) by mouth in the morning. Take before meals. 100 tablet 3 07/26/2025 ActiveLevothyroxine Sodium 100 MCG Oral for 90 Days Activemeloxicam 15 mg oral tablet (20 sources)Nonsteroidal Anti-inflammatory DrugStart: 03-15-2025 End: 38-96-0473izmc 1 tablet by mouth in the morningmeloxicam (MOBIC) 15 mg tablet Take 1 tablet (15 mg total) by mouth in the morning. 30 tablet 1 07/05 Activemupirocin 0.02 mg/mg topical ointment (6 sources)RNA Synthetase Inhibitor AntibacterialStart: 64-61-6897Avnrvfxxs 2 % ointment Active 1 APPLIC TOPICAL Three times daily 26 07June 30, 2025 12:00amComplies with drug therapyStart: 06-15-2025 End: 63-51-3658fndahohuo (Bactroban) 2 % cream Indications: Skin infection Apply topically in the morning and in the evening and before bedtime. Do all this for 10 days. 15 g 06/15/2025 06/25/2025 ActiveOLANZapine 10 mg oral tablet (18 sources)Atypical AntipsychoticStart: 69-96-7111zjoa 1 tablet by mouth twice daily as needed for anxietyOLANZapine (ZyPREXA) 2.5 MG tablet Indications: Bipolar disorder, in partial remission, most recentepisode mixed (HCC) Take 1 tablet (2.5 mg) by mouth 2 (two) times a day as needed (acute anxiety) 60 tablet 3 08/16/2025 ActiveStart: 26-51-8582gqsg 1 tablet by mouth twice daily as needed for anxietyOLANZapine (ZyPREXA) 2.5 MG tablet Indications: Bipolar disorder, in partial remission, most recentepisode mixed (HCC) Take 1 tablet (2.5 mg) by mouth 2 (two) times a day as needed (acute anxiety) 60 tablet 3 08/16/2025 ActiveStart: 12-56-4686fbkp 1 tablet by mouth at bedtimeOLANZapine (ZyPREXA) 10 MG tablet Indications: Reactive depression (situational) , Bipolar disorder, in partial remission, most recent episode mixed (HCC) Take 1 tablet (10 mg) by mouth at bedtime 90tablet 1 08/16/2025 ActiveStart: 81-23-3200hqpe 1 tablet by mouth at bedtimeOLANZapine (ZyPREXA) 10 MG tablet Indications: Reactive depression (situational) , Bipolar disorder, in partial remission, most recent episode mixed (HCC) Take 1 tablet (10 mg) by mouth at bedtime 90tablet 1 08/16/2025 ActiveStart: 07-31-2025 End: 00-39-2252uesv 1 tablet by mouth at bedtimeOLANZapine (ZyPREXA) 5 MG tablet Indications: Anxiety , Reactive depression (situational) Take 1 tablet (5 mg) by mouth at bedtime 90 tablet 1 07/31/2025 08/16/2025 Discontinued (Reorder)Start: 01-22-2024 End: 30-47-7262cdzh 1 tablet by mouth at bedtimeOLANZapine (ZyPREXA) 5 MG tablet Take 1 tablet by mouth at bedtime 01/22/2024 11/09/2024 Discontinued (Side effects)take 1 tablet by mouth once dailyOLANZapine 20 MG TAKE 1 TABLET BY MOUTH ONCE DAILY Oral for 67 Days Activeondansetron 4 mg disintegrating oral tablet (4 sources)Serotonin-3 Receptor AntagonistStart: 05-24-2025 End: 21-68-7449pnhz 1 tablet by mouth every eight hours for nauseaondansetron ODT (Zofran-ODT) 4 MG disintegrating tablet Indications: Nausea and vomiting, unspecified vomiting type Take 1 tablet (4 mg) by mouth every 8 (eight) hours if needed for nausea or vomiting for up to 7 days 21 tablet 05/24/2025 05/31/2025 ActiveStart: 02-06-2025 End: 57-79-2997pfrs 1 tablet by mouth every eight hours for nauseaondansetron ODT (Zofran-ODT) 4 MG disintegrating tablet Indications: Nausea and vomiting, unspecified vomiting type Take 1 tablet (4 mg) by mouth every 8 (eight) hours if needed for nausea or vomiting for up to 7 days 21 tablet 02/06/2025 02/13/2025 Eevrvp64 hr orphenadrine citrate 100 mg extended release oral tablet (20 sources)Muscle RelaxantStart: 12-16-2024 End: 74-98-4810viwp 1 tablet by mouth twice daily as needed for muscle spasms orphenadrine (Norflex) 100 MG 12 hr tablet Indications: Muscle spasm Take 1 tablet (100 mg) by mouth 2 (two) times a day as needed for muscle spasms Do not crush, chew, or split. 60 tablet 1 02/28/2025 05/24/2025 Discontinued (Ineffective)Start: 09-24-2024 End: 68-92-9150qlvr 1 tablet by mouth twice daily as needed for muscle spasms orphenadrine (Norflex) 100 MG 12 hr tablet Indications: Muscle spasm Take 1 tablet (100 mg) by mouth 2 (two) times a day as needed for muscle spasms Do not crush, chew, or split. 60 tablet 1 09/29/2024 11/09/2024 Discontinued (Cost of medication)pantoprazole 40 mg delayed release oral tablet (20 sources)Proton Pump InhibitorStart: 05-24-2025 End: 92-75-7900zekk 1 tablet by mouth once dailypantoprazole (ProtoNix) 40 MG EC tablet Indications: Gastroesophageal reflux disease with esophagitis without hemorrhage Take 1 tablet (40 mg) by mouth Daily Do not crush, chew, or split. 90 tablet 07/26/2026 ActivepredniSONE 10 mg oral tablet (7 sources)Start: 06-15-2025 End: 82-29-3777fjzd 4 tablets by mouth in the morningpredniSONE (DELTASONE) 10 mg tablet Take by mouth in the morning. 40 mg taper as directed . 06/15/2025 07/01/2025 Activesertraline 100 mg oral tablet (20 sources)Serotonin Reuptake InhibitorStart: 17-63-9831Hnyincsogw 100 mg tablet Active 100 MG PO May 17, 2025 12:00am Complies with drug therapy Start: 11-09-2024 End: 96-04-7754fahr 2 tablets by mouth at bedtimesertraline (Zoloft) 100 MG tablet Indications: Reactive depression (situational) Take 2 tablets (200 mg) by mouth at bedtime 60 tablet 2 07/26/2025 10/24/2025 Activesod sulf-pot chloride- mag sulf 1.479-0.188- 0.225 gram tablet (7 sources)Start: 30-78-8937gjh sulf-pot chloride-mag sulf 1.479-0.188- 0.225 gram tablet Indications: Weight loss , Nausea andvomiting, unspecified vomiting type Please see instructional sheet given by physicians office. 24 tablet 07/11/2025 ActiveStart: 07-11-2025 End: 80-76-6151umj sulf-pot chloride-mag sulf 1.479-0.188- 0.225 gram tablet Indications: Weight loss , Nausea andvomiting, unspecified vomiting type Please see instructional sheet given by physicians office. 24 tablet 07/11/2025 07/11/2025 Discontinuedsucralfate 1000 mg oral tablet (20 sources)Aluminum ComplexStart: 00-89-9408Nszciaoxep 1 gram tablet Active PO June 30, 2025 12:00am Complies with drug therapyStart: 06-15-2025 End: 27-26-7125qwal 1 tablet by mouth three times daily as needed for gastroesophageal reflux diseasesucralfate (Carafate) 1 g tablet Indications: Gastric pain , Nausea and vomiting, unspecified vomiting type Take 1 tablet (1 g) by mouth 3 (three) times a day as needed (reflux) 120 tablet 3 07/26/2025 ActivetraMADol hydrochloride 50 mg oral tablet (20 sources)Opioid AgonistStart: 05-17-2025 End: 79-88-2785mqhl 1 tablet by mouth every six hours for paintraMADol (Ultram) 50 MG tablet Indications: Severe back pain Take 1 tablet (50 mg) by mouth every 6(six) hours if needed for severe pain for up to 7 days 28 tablet 05/22/2025 08/11/2025 Discontinued(Therapy completed)Start: 03-02-2025 End: 70-88-6420skir 2 tablets by mouth every six hours as neededtraMADoL (ULTRAM) 50 mg tablet Take 2 tablets (100 mg total) by mouth every 6 (six) hours as needed. 03/02/2025 ActiveStart: 02-28-2025 End: 84-94-1226nagp 2 tablets by mouth every six hours for paintraMADol (Ultram) 50 MG tablet Indications: Severe back pain Take 2 tablets (100 mg) by mouth every6 (six) hours if needed for severe pain 28 tablet 02/28/2025 02/28/2025 Discontinued (Ineffective)Start: 02-23-2025 End: 24-68-8693qcfp 1 tablet by mouth every six hours for paintraMADol (Ultram) 50 MG tablet Indications: Severe back pain Take 1 tablet (50 mg) by mouth every 6(six) hours if needed for severe pain 28 tablet 02/23/2025 02/28/2025 Discontinued (Reorder)Start: 01-10-2025 End: 62-50-0481xoni 1 tablet by mouth every six hours for paintraMADol (Ultram) 50 MG tablet Indications: Severe back pain Take 1 tablet (50 mg) by mouth every 6(six) hours if needed for severe pain 28 tablet 01/26/2025 ActiveStart: 11-29-2024 End: 44-55-1471trmm 1 tablet by mouth every six hours for paintraMADol (Ultram) 50 MG tablet Indications: Severe back pain Take 1 tablet (50 mg) by mouth every 6(six) hours if needed for moderate pain or severe pain for up to 7 days 28 tablet 11/29/2024 12/06/2024 Activetriamcinolone acetonide 1 mg/ml topical cream (6 sources)CorticosteroidStart: 07-26-2025 End: 08-20-6682plzinfxnyenmr (Kenalog) 0.1 % cream Indications: Dermatitis Apply topically in the morning and before bedtime. 30 g 07/26/2025 08/11/2025 Discontinued (Therapy completed) Completed/Discontinued Medications MedicationDrug Class(es)DatesSig (Normalized)Sig (Original)ALPRAZolam 0.25 mg oral tablet (6 sources)BenzodiazepineStart: 09-29-2024 End: 21-95-6699meye 1 tablet by mouth three times daily as needed for anxiety ALPRAZolam (Xanax) 0.25 MG tablet Indications: Situational mixed anxiety and depressive disorder (CMS/HCC) Take 1 tablet (0.25 mg) by mouth 3 (three) times a day as needed for anxiety for up to 10 days 30 tablet 09/29/2024 11/09/2024 Discontinued (Side effects)cariprazine 4.5 mg oral capsule (9 sources)Atypical AntipsychoticStart: 08-08-2024 End: 39-80-1672yyib 1 capsule by mouth once dailyVraylar 4.5 MG capsule Take 1 capsule by mouth Daily 08/08/2024 11/09/2024 Discontinued (Cost of medication) End: 78-62-8360odfg 1 capsule by mouth once dailyCariprazine HCl (Vraylar) 3 MG capsule Take 3 mg by mouth Daily 09/29/2024 Discontinued (Other)doxycycline hyclate 100 mg oral capsule (2 sources)Tetracycline-class DrugStart: 06-13-2025 End: 66-36-7775uslc 1 capsule by mouth twice dailyDoxycycline Hyclate 100 mg capsule Discontinued 100 MG PO Twice daily 24 07June 13, 2025 12:00am June 30, 2025 11:09amLORazepam 1 mg oral tablet (20 sources)BenzodiazepineStart: 06-13-2025 End: 41-86-0230Gpawokmbs 0.5 mg tablet Discontinued MG PO June 13, 2025 12:00am June 30, 2025 11:10amStart: 03-02-2025 End: 05-14-3785qjso 1 tablet by mouth three times daily as needed for anxiety LORazepam (Ativan) 1 MG tablet Indications: Anxiety Take 1 tablet (1 mg) by mouth 3 (three) times aday as needed for anxiety for up to 10 days 30 tablet 06/26/2025 07/26/2025 DiscontinuedStart: 02-28-2025 End: 51-48-2378frya 1 tablet by mouth three times daily as needed for anxiety LORazepam (Ativan) 1 MG tablet Indications: Anxiety Take 1 tablet (1 mg) by mouth 3 (three) times aday as needed for anxiety 30 tablet 02/28/2025 02/28/2025 Discontinued (Ineffective)Start: 11-29-2024 End: 15-69-0233eoqf 1 tablet by mouth twice daily as needed for anxietyLORazepam (ATIVAN) 0.5 mg tablet Take 1 tablet (0.5 mg total) by mouth 2 (two) times a day as needed for anxiety. 02/23/2025 ActiveStart: 08-08-2024 End: 60-73-0252ndfu 1 tablet by mouth every twenty-four hours as needed for anxiety and anxiety and anxietyLORazepam (Ativan) 0.5 MG tablet Indications: Anxiety Take 1 tablet (0.5 mg) by mouth Daily as needed for anxiety 30 tablet 2 11/09/2024 02/07/2025 Activemirtazapine 30 mg oral tablet (20 sources)Start: 01-22-2024 End: 26-90-0686cqhr 1 tablet by mouth at bedtimemirtazapine (Remeron) 30 MG tablet Indications: Reactive depression (situational) Take 1 tablet (30mg) by mouth at bedtime 30 tablet 2 11/09/2024 07/26/2025 DiscontinuedMirtazapine 30 MG Oral for 67 Days Activesulfamethoxazole 800 mg / trimethoprim 160 mg oral tablet (4 sources)Dihydrofolate Reductase Inhibitor Antibacterial, Sulfonamide AntimicrobialStart: 05-17-2025 End: 14-47-5525ryla 1 tablet by mouth every twelve hoursSulfamethoxazole- Trimethoprim (Bactrim Ds) 800-160 mg tablet Discontinued 1 TAB PO Every 12 hours May 17, 2025 12:00am June 06, 2025 9:03amtiZANidine 4 mg oral tablet (20 sources)Central alpha-2 Adrenergic AgonistStart: 12-19-2024 End: 90-54-9425apfx 1 tablet by mouth every eight hours as neededtiZANidine (ZANAFLEX) 4 mg tablet Take 1 tablet (4 mg total) by mouth every 8 (eight) hours as needed for muscle spasms. TAKE 1 TABLET(4 MG) BY MOUTH EVERY 8 HOURS NEEDED FOR MUSCLE SPASMS 12/19/2024 07/19/2025 Discontinued (Alternate therapy) Start: 01-25-2024 End: 16-36-1598bmrd 1 tablet by mouth every eight hours for muscle spasms tiZANidine (Zanaflex) 4 MG tablet Indications: Acute strain of neck muscle, initial encounter Take 1 tablet (4 mg) by mouth every 8 (eight) hours if needed for muscle spasms 90 tablet 11/09/2024 12/09/2024 Active Problems Active Problems Problem ClassificationProblemDateDocumented DateEpisodic/ChronicAbdominal pain (20 sources)Unspecified abdominal pain; Translations: [Generalized abdominal pain]Onset: 411781-51-1700FmzsgjzqBecohcplkq disorders (3 sources)Mixed anxiety and depressive disorder; Translations: [Adjustment disorder with mixed anxiety and depressed mood]52-10-9898BtirelrLakuqku-related disorders (20 sources)History of alcohol abuse; Translations: [Alcohol abuse, in remission]Onset: 12-06-2009 Resolved: 164415-19-6521HtnpzpbNbyrlrrh reactions (2 sources)Inflammatory dermatosis; Translations: [Dermatitis, unspecified] 03-05-0210AngirscjMlcsacu disorders (20 sources)Anxiety disorder, unspecified; Translations: [Anxiety disorder] Onset: 112801-59-2314VojxjkyLbieztc disorders (2 sources)Organic anxiety disorder; 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]43-44-5971YeuehoqkUxtbzjz obstructive pulmonary disease and bronchiectasis (1 source)Emphysema, unspecified; Translations: [EMPHYSEMA UNSPECIFIED]Onset: 18-69-2887MyfrgybVqlpapfpm of lipid metabolism (20 sources)Hyperlipidemia, unspecified; Translations: [Mixed hyperlipidemia] Onset: 605674-46-1320SxylomlHydimldge of lipid metabolism (1 source)Pure hypercholesterolemia, unspecified; Translations: [PURE HYPERCHOLESTEROLEMIA UNSPEC]Onset: 64-07-8522Gkmsgrdvee disorders (20 sources)Gastro-esophageal reflux disease without esophagitis; Translations: [Gastroesophageal reflux disease]Onset: 352396-79-2674HyulaahGpptmdmfo hypertension (4 sources)Hypertensive disorder; Translations: [Essential (primary) hypertension]88-14-7941HclzzqwKoxhx and electrolyte disorders (2 sources)Hypokalemia; Translations: [Dehydration]Onset: 61-10-3036Oewuvroo Heart valve disorders (5 sources)Heart murmur; Translations: [Cardiac murmur, unspecified]Onset: 788512-53-5208NwnablrvUefh disorders (20 sources)Bipolar disorder; Translations: [Bipolar disorder, unspecified] Onset: 497350-81-5409NowyydrDghmej and vomiting (20 sources)Nausea and vomiting; Translations: [Nausea with vomiting, unspecified]Onset: 504765-53-6803OrxkjfwyMtpnepuwunx chest pain (4 sources)Chest pain, unspecified; Translations: [CHEST PAIN UNSPECIFIED]Onset: 34-02-3210YllobloiSudn wounds of extremities (2 sources)Puncture wound of left hand; Translations: [Puncture wound without foreign body of left hand, initial encounter]75-63-4716MchulieuGchw wounds of head; neck; and trunk (2 sources)Unspecified open wound of other part of head, initial encounter; Translations: [Facial laceration ]Onset: 56-41-6766LlfmyanaYbpyv aftercare (1 source)Other jail (current) drug therapy; Translations: [OTH CUSTODIAL CURRENT DRUG THERAPY]Onset: 23-39-4208WnumxwgsVktls aftercare (2 sources)Post-discharge follow-up; Translations: [Encounter for follow-up examination after completed treatment for conditions other than malignant neoplasm]31-25-1053HyeyjchiPqodj connective tissue disease (6 sources)Spasm; Translations: [Other muscle spasm]02-86-0846CdezkwnkMzvmz gastrointestinal disorders (20 sources)Chronic idiopathic constipation; Translations: [Chronic idiopathic constipation]Onset: 699984-87-7703FdtyntzCogdc gastrointestinal disorders (4 sources)Dysphagia; Translations: [Dysphagia, unspecified]36-62-7470Zluxxrxz Other gastrointestinal disorders (1 source)Chronic constipation; Translations: [Other constipation]08-11-2025 EpisodicOther injuries and conditions due to external causes (2 sources)Abrasion; Translations: [Other injury of unspecified body region, initial encounter]14-82-5259TpcngrjfHgknj lower respiratory disease (2 sources)Rib pain; Translations: [Pleurodynia]26-82-1235BlmdxqnlZgxpj lower respiratory disease (1 source)Cough; Translations: [Acute cough]74-67-7680AahuzpuhEbihr lower respiratory disease (4 sources)Dyspnea; Translations: [Shortness of breath]95-87-1554JcykctioPegfs lower respiratory disease (1 source)Shortness of breath; Translations: [Shortness of breath]Onset: 39-73-5540YhcpapdsTaeie nervous system disorders (1 source)Other chronic pain; Translations: [Other chronic pain]Onset: 55-13-1972EkrwzgqEjlan non-traumatic joint disorders (1 source)Pain in right knee; Translations: [Pain in right knee]Onset: 30-85-0020JdxqpwrtJftss non-traumatic joint disorders (1 source)Pain in left knee; Translations: [Pain in left knee]Onset: 08-09-2025 EpisodicOther nutritional; endocrine; and metabolic disorders (3 sources)Weight loss; Translations: [Abnormal weight loss]Onset: 07-11-2025 63-81-5339CmfulswuNpjgn nutritional; endocrine; and metabolic disorders (7 sources)Weight decreased; Translations: [Abnormal weight loss]02-28-2025 EpisodicOther nutritional; endocrine; and metabolic disorders (1 source)Abnormal weight loss; Translations: [Abnormal weight loss]Onset: 92-65-5209JyodxepmThbzi nutritional; endocrine; and metabolic disorders (14 sources)Unintentional weight loss; Translations: [Abnormal weight loss] Onset: 574984-94-1127JkmvvzcqGgzof screening for suspected conditions (not mental disorders or infectious disease) (8 sources)Patient encounter status; Translations: [Encounter for screening for malignant neoplasm of prostate]42-95-5198SkmeotxmKnsnd skin disorders (2 sources)Folliculitis; Translations: [Follicular disorder, unspecified] 90-52-3578DgrtkuqlSxui-; endo-; and myocarditis; cardiomyopathy (except that caused by tuberculosis or sexually transmitted disease) (2 sources)Pericardial effusion; Translations: [Pericardial effusion (HHS-HCC)] 28-60-9745NlpvrdxoXocmjpac codes; unclassified (4 sources)Tobacco user; Translations: [Tobacco use]39-06-1800YjuekceqWndcqcioc and history of mental health and substance abuse codes (2 sources)Tobacco use and exposure - ffenbou28-06-9103IzqlaciPupyeelmt and history of mental health and substance abuse codes (6 sources)Personal history of nicotine dependence; Translations: [Tobacco use and exposure - finding]69-96-8915HevbgdafNunr and subcutaneous tissue infections (10 sources)Impetigo; Translations: [Impetigo, unspecified]81-21-6986Qyvkhdvk Spondylosis; intervertebral disc disorders; other back problems (20 sources)Degeneration of thoracic intervertebral disc; Translations: [Other intervertebral disc degeneration, thoracic region]Onset: ChronicSpondylosis; intervertebral disc disorders; other back problems (20 sources)Backache; Translations: [Dorsalgia, unspecified]Onset: 03-15-2025 51-31-9018TzdyujoaMfwsciu and strains (2 sources)Strain of neck muscle; Translations: [Strain of muscle, fascia and tendon at neck level, initial encounter]16-19-7761DsaaodulRmsczcfsr-related disorders (20 sources)Nicotine dependence, cigarettes, uncomplicated; Translations: [History of drug abuse]Onset: 12-06-2009 Resolved: 453641-72-9726DgocxieKgihcqorptj injury; contusion (1 source)Blister (nonthermal) of oral cavity, initial encounterEpisodicThyroid disorders (20 sources)Hypothyroidism; Translations: [Hypothyroidism, unspecified]Onset: 610411-70-1656QeuviraVziajbpxddjy (4 sources)Patient encounter bdyxav67-46-7188Fwjilhzsfqfq (6 sources)Autogenerated ProblemOnset: 196502-66-1734Bqkwnjtpiysu (1 source)Anxiety, Med RefillOnset: 11-28-2024 Past or Other Problems Problem ClassificationProblemDateDocumented DateEpisodic/ChronicCardiac dysrhythmias (20 sources)Palpitations; Translations: [Palpitations]Onset: 12-09-2009 59-50-7166CkcpgcaaKevbrhhttv associated with dizziness or vertigo (20 sources)Dizziness and giddiness; Translations: [Dizziness and giddiness] Onset: 292854-91-6392SwlbkxadOywhwdsx; convulsions (20 sources)Seizure; Translations: [Unspecified convulsions]Onset: 07-01-2023 82-91-9296OarwiwcbGmuoqjcanos (20 sources)Bleeding external hemorrhoids; Translations: [Residual hemorrhoidal skin tags]Onset: 382322-91-1089LfdwsgqhKeij disorders (20 sources)Mood disordersOnset: 12-09-2023 Resolved: 503657-03-0937Kqaijddoktl deficiencies (20 sources)Vitamin B deficiency; Translations: [Deficiency of other specified B group vitamins]Onset: 831930-42-8678IbeqjiexNwmtd circulatory disease (20 sources)Orthostatic hypotension; Translations: [Orthostatic hypotension] Onset: 693857-68-9738VbgecxfrBcils nutritional; endocrine; and metabolic disorders (1 source)Anorexia; Translations: [ANOREXIA]Onset: 82-91-3393VyiaswyuGnzai nutritional; endocrine; and metabolic disorders (20 sources)Loss of appetite; Translations: [Anorexia]Onset: 07-01-2023 25-05-4381UnnrlurgQxagx skin disorders (20 sources)Excessive sweating; Translations: [Generalized hyperhidrosis]Onset: 12-09-2009 Resolved: 603315-78-7400DjrtdnoeAflkkqbn codes; unclassified (1 source)Pain, unspecified; Translations: [Pain, unspecified]Onset: 03-02-2025 Episodic Results Test NameValueInterpretationReference RangeFacilityMR THORACIC SPINE WO CONTon [id number] THORACIC SPINE WO CONTMR THORACIC SPINE WO CONT History: Thoracic spondylosis without myelopathy. Thoracic spine [...] There is no definite cord signal abnormality orsignificant impingement. There is no significant edema within the spine or paraspinal tissues. Impression: There is no significant abnormality of the thoracic spine. Finalized by Stevan Hagen MD on 08/10/2025 8:11 AMNNEA [facility]ca [facility] DiegoCT CHEST W IV CONTRASTon [id number] CHEST W IV CONTRASTEXAM: CT CHEST NON-CONTRAST NODULE PROTOCOL/LOW DOSE CT [...] low as reasonably achievable. ELECTRONICALLY SIGNED BY: Jun SolismalNot AvailableXR KNEE LT 3 VWS on [id number] KNEE LT 3 VWSXR KNEE LT 3 VWS History: Pain Exam/Technique: Frontal lateral and oblique views of the left knee were obtained. Comparison: None Findings: There is no evidence for an acute osseous abnormality. No significant degenerative changes are seen. No joint effusions are identified. IMPRESSION: Normal left knee. Finalized by Roberto Fisher MD on 08/09/2025 1:00 PMNMercy Health Kings Mills HospitalXR KNEE RT 3 VWSon [id number] KNEE RT 3 VWSXR KNEE RT 3 VWS History: Pain Exam/Technique: Frontal lateral and oblique views of the right knee were obtained. Comparison: None Findings: There is no evidence for an acute osseous abnormality. No significant degenerative changes are seen. No joint effusions are identified. IMPRESSION: Normal right knee. Finalized by Roberto Fisher MD on 08/09/2025 12:53 PMNMercy Health [facility] W Auto Differential panel (Bld)on 65-96-2566Wocsigzxv (Bld) [#/Vol] 0.1 10*3/uLNOMS HealthcareBasophils/100 WBC (Bld)1 %Not Estab.[facility] Eosinophils (Bld) [#/Vol]0.2 10*3/uLNOMS HealthcareEosinophils/100 WBC (Bld)2 % Not Estab.[facility] HealthcareErythrocyte distribution width (RBC) [Ratio]14.3 %11.6 - 15.4 %NOM HealthcareHematocrit (Bld) [Volume fraction]42.1 %37.5 - 51.0 %NOM HealthcareHemoglobin (Bld) [Mass/Vol]13.7 g/dL13.0 - 17.7 g/dLEllis Fischel Cancer Center Immature granulocytes (Bld) [#/Vol]0.0 10*3/uLNOMS HealthcareImmature granulocytes/100 WBC (Bld)0 %Not Estab.[facility] HealthcareLymphocytes (Bld) [#/Vol] 3.4 10*3/uLHighNOMS HealthcareLymphocytes/100 WBC (Bld)28 %Not Estab.[facility] Cancer CenterMCH (RBC) [Entitic mass]29.0 pg26.6 - 33.0 pgNOSaint Joseph Hospital of KirkwoodMCHC (RBC) [Mass/Vol]32.5 g/dL31.5 - 35.7 g/dLEllis Fischel Cancer CenterMCV (RBC) [Entitic vol]89 fL79 - 97 fLTIMPANOGOS REGIONAL HOSPITAL HealthcareMonocytes (Bld) [#/Vol]1.0 10*3/uLHighNOMS Healthcare Monocytes/100 WBC (Bld)8 %Not Estab.[facility] HealthcareNeutrophils (Bld) [#/Vol]7.5 10*3/uLHighNOMS HealthcareNeutrophils/100 WBC (Bld)61 %Not Estab.[facility] Platelets (Bld) [#/Vol]401 10*3/uLNOMS HealthcareRBC (Bld) [#/Vol]4.73 10*6/uL [facility] HealthcareWBC (Bld) [#/Vol]12.3 10*3/uLHighNOMS HealthcareLaboratory - Chemistry and Chemistry - challengeon [id number] [Mass/Vol]4.2 g/dL3.8 - 4.9 g/dLNOMS HealthcareALP [Catalytic activity/Vol]102 U/LNOMS HealthcareALT [Catalytic activity/Vol]31 U/LNOMS HealthcareAST [Catalytic activity/Vol]30 U/L [facility] HealthcareBilirubin [Mass/Vol]0.5 mg/dL0.0 - 1.2 mg/dLNOSaint Joseph Hospital of [facility]wood Calcium [Mass/Vol]9.1 mg/dL8.7 - 10.2 mg/dLNOCO HealthcareChloride [Moles/Vol] 102 mmol/L96 - 106 mmol/LNOMS HealthcareCO2 [Moles/Vol]24 mmol/L20 - 29 mmol/L [facility] CenterCreatinine [Mass/Vol]0.81 mg/dL0.76 - 1.27 mg/dLNOSaint Joseph Hospital of [facility] CRP [Mass/Vol]mg/L0 - 10 mg/LNNORMAN REGIONAL [facility] HealthcareFree T4 [Mass/Vol]1.04 ng/dL0.82 - 1.77 ng/dLNOSaint Joseph Hospital of KirkwoodGFR/1.73 sq M.predicted among non-blacks MDRD (S/P/Bld) [Vol rate/Area]102 mL/min/{1.73_m2}59 - PINF mL/min/1.73NOSaint Joseph Hospital of KirkwoodGlobulin (S) [Mass/Vol]2.5 g/dL1.5 - 4.5 g/dLNOSaint Joseph Hospital of KirkwoodGlucose [Mass/Vol]102 mg/dL High70 - 99 mg/dLEllis Fischel Cancer CenterPotassium [Moles/Vol]4.6 mmol/L3.5 - 5.2 mmol/L [facility] HealthcareProtein [Mass/Vol]6.7 g/dL6.0 - 8.5 g/dLEllis Fischel Cancer CenterSodium [Moles/Vol]140 mmol/L134 - 144 mmol/LNCox BransonTSH Qn7.650 m[IU]/LHighNOCO HealthcareUrea nitrogen [Mass/Vol]23 mg/dL6 - 24 mg/dLEllis Fischel Cancer CenterUrea nitrogen/Creatinine [Mass ratio]28 mg/mgHigh9 - 20NOSaint [facility] Hospital of KirkwoodLaboratory - Hematology and Cell countson 38-71-9238LJX (Bld) [Velocity]12 mm/hNCox BransonLipid 1996 panelon 24-31-1649Owjfyzgkzjf [Mass/Vol]171 mg/dL100 - 199 mg/dLNOSaint Joseph Hospital of KirkwoodCholesterol in HDL [Mass/Vol]43 mg/dL39 - PINF mg/dLNOSaint Joseph Hospital of KirkwoodCholesterol in LDL [Mass/Vol]104 mg/dLHigh0 - 99 mg/dLEllis Fischel Cancer Center Cholesterol in VLDL [Mass/Vol]24 mg/dL5 - 40 mg/dLEllis Fischel Cancer CenterTriglyceride [Mass/Vol]135 mg/dL0 - 149 mg/dLEllis Fischel Cancer CenterNo Panel Informationon 07-28-2025 Interpretation and review of laboratory resultsAbnoSCI-Waymart Forensic Treatment CenterPerformed at: 01 - [facility] [address] [id number] Assistant Professor Of Spanish: Henri Figueroa PhD, Phone: [phone] HealthcareXR RIBS 3 VIEWS BILATERAL WITH CHEST POSTEROANTERIORon [id number] RIBS 3 VIEWS BILATERAL WITH CHEST POSTEROANTERIORXR [...] interpreting Radiologist.NormalNot AvailableCT LUNG SCREENING LOW DOSEon [id number] LUNG SCREENING LOW DOSEThis is a summary [...] low dose images of the chest performed forng cancer screening. Findings: No suspicious nodule, mass [...] TRANSCRIBED BY: ELECTRONICALLY SIGNED BY: Aaron Edwards MDNonavidalNot AvailableCBC (H/H, RBC, INDICES, WBC, PLT)on [id number] distribution width (RBC) [Ratio]13.7 %Xcxwhh80.0-15.0Quest DiagnosticsComment on above:Performed By: #### 927, 866, 54870, 45061, 5363, 1759, 7600 #### [facility] [place] [address] Field Director: Brian Alvares MDHematocrit (Bld) [Volume fraction]41.3 %Normal 38.5-50.0Quest DiagnosticsComment on above:Performed By: #### 927, 866, 75015, 06719, 5363, 1759, 7600 #### [facility] [address], [address] [place] [address] Field Director: Brian Alvares MDHemoglobin (Bld) [Mass/Vol]12.8 g/dLLow 13.2-17.1Quest DiagnosticsComment on above:Performed By: #### 927, 866, 23382, 44569, 5363, 1759, 7600 #### [facility] [place] [address] Field Director: Brian Alvares MDMCH (RBC) [Entitic mass]28.7 cdGpovbi96.0-33.0 [facility] DiagnosticsComment on above:Performed By: #### 927, 866, 24092, 16116, 5363, 1759, 7600 #### [facility] [place] [address] Field Director: Brian Alvares MDMCHC (RBC) [Mass/Vol]31.0 g/dLLow32.0-36.0 [facility] DiagnosticsComment on above:Result Comment: For adults, a slight decrease in the calculated MCHC value (in the range of 30 to 32 g/dL) is most likely not clinically significant; however, it should be interpreted with caution in correlation with other red cell parameters and the patient's clinical condition.Performed By: #### 927, 866, 11160, 30297, 5363, 1759, 7600 #### [facility] of [place] [address], [address] [place] [address] Field Director: Brian Alvares MDMCV (RBC) [Entitic vol]92.6 mVOaavwa21.0-100.0 Quest DiagnosticsComment on above:Performed By: #### 927, 866, 21001, 47127, 5363, 1759, 7600 #### [facility] of [place] [address], [address] [place] [address] Field Director: Brian Alvares MDPlatelet mean volume (Bld) [Entitic vol]10.2 fLNormal7.5-12.5Quest DiagnosticsComment on above:Performed By: #### 927, 866, 58493, 63444, 5363, 1759, 7600 #### [facility] of [place] [address] , [address] [place] [address] Field Director: Brian Alvares MDPlatelets (Bld) [#/Vol]326 10*3/uLNormal 140-400Quest DiagnosticsComment on above:Performed By: #### 927, 866, 51736, 28481, 5363, 1759, 7600 #### [facility] of [place] [address], [address] [place] [address] Field Director: Brian Alvares MDRBC (Bld) [#/Vol]4.46 10*6/uLNormal4.20-5.80 Quest DiagnosticsComment on above:Performed By: #### 927, 866, 76619, 01397, 5363, 1759, 7600 #### [facility] of [address] , [address] [place] [address] Field Director: Brian Alvares MDWBC (d) [#/Vol]9.0 10*3/uLNormal3.8-10.8 Quest DiagnosticsComment on above:Performed By: #### 927, 866, 99686, 87647, 5363, 1759, 7600 #### [facility] of [place] [address] Field Director: Brian Alvares MDCOMPREHENSIVE METABOLIC PANELon 03-01-2025 Albumin [Mass/Vol]4.3 g/dLNormal3.6-5.1Quest DiagnosticsComment on above: Performed By: #### 927, 866, 76291, 68203, 5363, 1759, 7600 #### [facility] of [place] [address] Field Director: Brian Alvares MDAlbumin/Globulin [Mass ratio]1.7 {ratio}Normal 1.0-2.5Quest DiagnosticsComment on above:Performed By: #### 927, 866, 53413, 24719, 5363, 1759, 7600 #### [facility] of [place] [address] Field Director: Brian Alvares MDALP [Catalytic activity/Vol]83 U/NVjovbw47-704 Quest DiagnosticsComment on above:Performed By: #### 927, 866, 72935, 94425, 5363, 1759, 7600 #### [facility] of [place] [address] Field Director: Brian Alvares MDALT [Catalytic activity/Vol]17 U/LNormal9-46 Quest DiagnosticsComment on above:Performed By: #### 927, 866, 28292, 30675, 5363, 1759, 7600 #### [facility] of [place] [address] Field Director: Brian Alvares MDAST [Catalytic activity/Vol]18 U/XOglprx07-18 Quest DiagnosticsComment on above:Performed By: #### 927, 866, 27028, 49172, 5363, 1759, 7600 #### [facility] of [address], [address] [place] [address] Field Director: Brian Alvares MDBilirubin [Mass/Vol]0.3 mg/dLNormal0.2-1.2 Quest DiagnosticsComment on above:Performed By: #### 927, 866, 14422, 35567, 5363, 1759, 7600 #### [facility] of [address], [address] [place] [address] Field Director: Brian Alvares MDBUN/CREATININE RATIOSEE NOTE:Normal6-22Quest DiagnosticsComment on above:Result Comment: Not Reported: BUN and Creatinine are within reference range.Performed By: #### 927, 866, 54889, 56093, 5363, 1759, 7600 #### [facility] of [address], [address] [place] [address] Field Director: Brian Alvares MDCalcium [Mass/Vol]9.1 mg/dLNormal8.6-10.3Quest DiagnosticsComment on above:Performed By: #### 927, 866, 25144, 59092, 5363, 1759, 7600 #### [facility] [address], [address] [place] [address] Field Director: Brian Alvares MDChloride [Moles/Vol]104 mmol/PHhwehl95-771 Quest DiagnosticsComment on above:Performed By: #### 927, 866, 54622, 59868, 5363, 1759, 7600 #### [facility] of [address], [address] [place] [address] Field Director: Brian Alvares MDCO2 [Moles/Vol]30 mmol/DCeqwnh82-18Vwuhf DiagnosticsComment on above:Performed By: #### 927, 866, 75121, 45178, 5363, 1759, 7600 #### [facility] of [place] [address], [address] [place] [address] Field Director: Brian MCCARTHYreatinine [Mass/Vol]0.82 mg/dLNormal0.70-1.30 Quest DiagnosticsComment on above:Performed By: #### 927, 866, 83937, 09417, 5363, 1759, 7600 #### [facility] [place] [address] Field Director: Brian Alvares MDGFR/1.73 sq M.predicted among non-blacks MDRD (S/P/Bld) [Vol rate/Area]102 mL/min/{1.73_m2}Normal> OR = 60[facility] Comment on above:Performed By: #### 927, 866, 90230, 49391, 5363, 175, 7600 #### [facility] [place] [address] Field Director: Brian Alvares MDGlobulin (S) [Mass/Vol]2.5 g/dLNormal1.9-3.7 Quest DiagnosticsComment on above:Performed By: #### 927, 866, 92909, 50010, 5363, 175, 7600 #### [facility] [place] [address] Field Director: Brian Alvares MDGlucose [Mass/Vol]92 mg/mQLehsts95-47Wpqcy DiagnosticsComment on above:Result Comment: Fasting reference intervalPerformed By: #### 927, 866, 45287, 17710, 5363, 1759, 7600 #### [facility] [place] [address] Field Director: Brian Alvares MDPotassium [Moles/Vol]4.7 mmol/LNormal3.5-5.3 [facility] DiagnosticsComment on above:Performed By: #### 927, 866, 88895, 51573, 5363, 1759, 7600 #### [facility] of [place] [address] Field Director: Brian Alvares MDProtein [Mass/Vol]6.8 g/dLNormal6.1-8.1Quest DiagnosticsComment on above:Performed By: #### 927, 866, 10511, 09839, 5363, 1759, 7600 #### [facility] of [address], [address] [place] [address] Field Director: Brian Alvares MDSodium [Moles/Vol]141 mmol/MWspkpv688-326Zbjgf DiagnosticsComment on above:Performed By: #### 927, 866, 41252, 67260, 5363, 1759, 7600 #### [facility] of [address], [address] [place] [address] Field Director: Brian Alvares MDUrea nitrogen [Mass/Vol]12 mg/dLNormal7-25 Quest DiagnosticsComment on above:Performed By: #### 927, 866, 59508, 27256, 5363, 1759, 7600 #### [facility] of [place] [address] Field Director: Brian Alvares MDLIPID PANEL, STANDARD 99-53-5332Jlabuecrmfq [Mass/Vol]142 mg/dLNormal<200Quest DiagnosticsComment on above:Order Comment: FASTING:YES FASTING: YESPerformed By: #### 927, 866, 05687, 20857, 5363, 1759, 7600 #### [facility] of [place] [address] Field Director: Brian Alvares MDCholesterol in HDL [Mass/Vol]49 mg/dLNormal> OR = 40Quest DiagnosticsComment on above:Order Comment: FASTING:YES FASTING: YESPerformed By: #### 927, 866, 14331, 59200, 5363, 1759, 7600 #### [facility] of [place] [address] [place] [address] Field Director: Brian MCCARTHYholesterol in LDL [Mass/Vol]74 mg/dLNormal Quest DiagnosticsComment on [...] of LDL-C. Aman SS et al. CLARISA. 2013;310(91): 3962-5888 (http://education.[employer]/faq/KCN394)Performed By: #### 927, 866, 20255, 30118, 5363, 1759, 7600 #### [facility] [place] [address] Field Director: Brian MCCARTHYholesteroarely.total/Cholesterol in HDL [Mass ratio]2.9 {ratio}Normal<5.0Quest DiagnosticsComment on above:Order Comment: FASTING:YES FASTING: YESPerformed By: #### 927, 866, 82228, 31223, 5363, 1759, 7600 #### [facility] [place] [address] Field Director: Brian DE DIOS HDL UWKIPHKTMEU02 mg/dL (calc)Normal<130 Quest DiagnosticsComment on above:Order Comment: FASTING:YES FASTING: YESResult Comment: For patients with diabetes plus 1 major ASCVD risk factor, treating to a non-HDL-C goal of <100 mg/dL (LDL-C of <70 mg/dL) is considered a therapeutic option.Performed By: #### 927, 866, 81143, 20924, 5363, 1759, 7600 #### [facility] [place] [address] Field Director: Brian Alvares MDTriglyceride [Mass/Vol]111 mg/dLNormal<150 [facility] DiagnosticsComment on above:Order Comment: FASTING:YES FASTING: YESPerformed By: #### 927, 866, 44510, 73581, 5363, 1759, 7600 #### [facility] [place] [address] Field Director: Brian ASTUDILLO, [id number], TOTAL0.26 ng/mL Normal< OR = 4.00Quest DiagnosticsComment [...] absence of disease.Performed By: #### 927, 866, 71830, , 5363, 175, 7600 #### [facility] [place] [address] Field Director: Brian BROTHERS, [id number] T4 [Mass/Vol]1.0 ng/dLNormal0.8-1.8Quest DiagnosticsComment on above:Performed By: #### 927, 866, 07346, , 5363, 175, 7600 #### [facility] [place] [address] Field Director: Brian Alvares MDPEACEHEALTH ST. [facility] W/REFLEX TO [id number] W/REFLEX TO FT45.15 mIU/LHigh0.40-4.50Quest DiagnosticsComment on above:Performed By: #### 927, 866, 22968, , 5363, 175, 7600 #### [facility] [place] [address] Field Director: Brian Alvares MDVITAMIN B12on 67-80-9636Wadleufaq (Vitamin B12) [Mass/Vol]317 pg/oNAgfsmx713-0267Bxivw DiagnosticsComment on above:Result Comment: Please Note: Although the reference range for vitamin B12 is 200-1100 pg/mL, it has been reported that between 5 and 10% of patients with values between 200 and 400 pg/mL may experience neuropsychiatric and hematologic abnormalities due to occult B12 deficiency; less than 1% of patients with values above 400 pg/mL will have symptoms.Performed By: #### 927, 866, 46976, 53836, 5363, 1759, 7600 #### [facility] [address] [facility], [address] [place] [address] Field Director: Brian Alvares MDXR ABDOMEN 2 VIEWon [id number] ABDOMEN 2 VIEWAbdomen CLINICAL HISTORY: Abdominal pain Supine and upright views of the abdomen. Normal bowel gas pattern. Retained stool in the distal colon. No apparent air- fluid level. There are clips in the right upper quadrant related to cholecystectomy. IMPRESSION: Distal colonic stool. No evidence for obstructionNormalNot AvailableXR LUMBAR SPINE 4+ VIEWS WITH FLEXION EXTENSIONon [id number] LUMBAR SPINE 4+ VIEWS WITH FLEXION EXTENSIONExam: [...] by the interpreting Radiologist.NormalNot AvailableCB AUTO DIFFon 27-73-3781Gbtvrqsri (Bld) [#/Vol] 0.1 103/ulNormal0.0-0.1Berger HospitalComment on above:Performed By: #### CBC #### [facility] [address] [place], [place] [address] Loc KarenBasophils/100 WBC (Bld)1.1 %Normal0.2-2.0[facility] Comment on above:Performed By: #### CBC #### [facility] [address] [place] [address] Loc KarenEosinophils (Bld) [#/Vol]0.2 103/ulNormal0.0-0.7The [facility] Medical CenterComment on above:Performed By: #### CBC #### [facility] [address] [place] [address] Loc KarenEosinophils/100 WBC (Bld)2.2 %Normal0.9-7.0[facility] Comment on above:Performed By: #### CBC #### [facility] [address] [place] [address] Loc KarenErythrocyte distribution width (RBC) [Ratio]15.1 %Critically high 11.0-15.0The [facility] Medical Centerment on above:Performed By: #### CBC #### [facility] [address] [place] [address] Loc KarenHematocrit (Bld) [Volume fraction]37.2 %Critically low42.0-54.0The [facility] CenterComment on above:Performed By: #### CBC #### [facility] [address] [place] [address] Loc KarenHemoglobin (Bld) [Mass/Vol]12.4 g/dLCritically low14.0-18.0The [facility] Centerment on above:Performed By: #### CBC #### [facility] [address] [place] [address] Loc KarenIG #0.04 10e3/ulCritically high0.00-0.03The [facility] CenterComment on above:Performed By: #### CBC #### [facility] [address] [place] [address] Loc KarenIG %0.4 %Normal0.0-0.5The [facility] Medical CenterComment on above: Performed By: #### CBC #### [facility] [address] [place] [address] Loc KarenLymphocytes (Bld) [#/Vol]2.9 103/ulNormal1.2-3.8The [facility] HospitalComment on above:Performed By: #### CBC #### [facility] [address] [address] Loc KarenLymphocytes/100 WBC (Bld)31.6 %Xgshsg23.5-60.0[facility] Comment on above:Performed By: #### CBC #### [facility] [address] [address] Loc KarenMANUAL DIFF REQNONormalThe [facility] CenterComment on above: Performed By: #### CBC #### [facility] [address] [place] [address] Loc KarenMCH (RBC) [Entitic mass]27.0 jbTuftbo82.9-34.0[facility] Comment on above:Performed By: #### CBC #### [facility] [address] [place] [address] Loc KarenMCHC (RBC) [Mass/Vol]33.3 g/oILghxye78.9-35.2[facility] Comment on above:Performed By: #### CBC #### [facility] [address] [place] [address] Loc KarenMCV (RBC) [Entitic vol]81.0 dMAfcxmn21.0-94.0[facility] Comment on above:Performed By: #### CBC #### [facility] [address] [place] [address] Loc KarenMonocytes (Bld) [#/Vol]0.6 103/ulNormal0.3-0.8ThRegency Hospital [facility] Comment on above:Performed By: #### CBC #### [facility] [address] [place] [address] Loc KarenMonocytes/100 WBC (Bld)7.0 %Normal1.7-12.0[facility] Comment on above:Performed By: #### CBC #### [facility] [address] [place] [address] Loc KarenNeutrophils (Bld) [#/Vol]5.3 103/ulNormal1.4-6.5The [facility] CenterComment on above:Performed By: #### CBC #### [facility] [address] [place], [place] [id number] Loc KarenNeutrophils/100 WBC (Bld)57.7 %Nuwynh16.0-75.0[facility] Comment on above:Performed By: #### CBC #### [facility] [address] [place], [place] [id number] Loc KarenPlatelet mean volume (Bld) [Entitic vol]9.7 fLNormal9.5-13.5The [facility] CenterComment on above:Performed By: #### CBC #### [facility] [address] [place] [address] Loc KarenPlatelets (Bld) [#/Vol]241 103/ltExqmco071-126Oct [facility] Comment on above:Performed By: #### CBC #### [facility] [address] [place] [address] Loc KarenRBC (Bld) [#/Vol]4.59 106/ulCritically low4.70-6.10The [facility] CenterComment on above:Performed By: #### CBC #### [facility] [address] [place] [address] Loc KarenWBC (Bld) [#/Vol]9.2 103/ulNormal4.0-11.0[facility] Comment on above:Performed By: #### CBC #### [facility] [address] [place] [address] Loc KarenCTA CHEST WO W CONon 75-12-1727UYK CHEST WO W CONEXAMINATION: CTA CHEST WO [...] and bilateral hilar lymph nodes, likely reactive.NormalThe [facility] Medical CenterD-DIMERon 92-23-9791V-DIMER COMMENTS SEE BELOWNormalThe [facility] CenterComment on above:Result Comment: Increases in D-Dimer concentration [...] stress, and generalizd hospitalization.Performed By: #### DDIM ####[facility] [address] [place], [place] [address]Gerken KarenFibrin D-dimer FEU IA (Bld) [Mass/Vol]0.71 ug/mLCritically high0.19-0.50The [facility] on above:Result Comment: test repeated, critical value verifiedPerformed By: #### DDIM ####[facility] [address] [place], [place] [address]Gerken KarenPROF 14(COMP METB)on 00-28-9927Gumggub [Mass/Vol]3.6 g/dLNormal3.5-5.0The [facility] Centerment on above:Performed By: #### CMP, TROP ####[facility] [address] [phone] KarenAlbumin/Globulin [Mass ratio]1.0 {ratio} NormalThe [facility] on above:Performed By: #### CMP, TROP ####[facility] [address] [phone] KarenALP [Catalytic activity/Vol]84 U/UVuiuoj76-151Jcz [facility] HospitalComment on above:Performed By: #### CMP, TROP ####[facility] [address] [place], [place] [address]Cagiby KarenALT [Catalytic activity/Vol]25 U/L Ekiqwq53-29Gny [facility] CenterComment on above:Performed By: #### CMP, TROP ####[facility] [address] [place], [place] [address]Uwqdjn KarenAnion gap [Moles/Vol]17.1 mmol/LNormalThe [facility] CenterComment on above:Performed By: #### CMP, TROP ####[facility] [address] [place], [place] [address]Zhmpfu KarenAST [Catalytic activity/Vol]19 U/L Ccrhhk82-84Gha [facility] CenterComment on above:Performed By: #### CMP, TROP ####[facility] [address] [place], [place] [address]Gjczfp KarenBilirubin Ql (U)0.5 mg/dLNormal0.2-1.3The [facility] CenterComment on above:Performed By: #### CMP, TROP ####[facility] [address]zig[address] [place], [place] [address]Zlmkhp KarenCalcium [Mass/Vol]8.8 mg/dLNormal 8.4-10.2The [facility] Centerment on above:Performed By: #### CMP, TROP ####[facility] [address] [place], [place] [address]Vpqbqe KarenChloride [Moles/Vol]104 mmol/MOrwaiy66-423Wbe [facility] CenterComment on above:Performed By: #### CMP, TROP ####[facility] [address] [place], [place] [address]Eobaea KarenCO2 [Moles/Vol]21.3 mmol/LCritically low22.0-30.0The [facility] CenterComment on above:Performed By: #### CMP, TROP ####[facility] [address] [place], [place] [address]Qvucrg KarenCreatinine [Mass/Vol]1.02 mg/dLNormal0.66-1.25The [facility] CenterComment on above:Performed By: #### CMP, TROP ####[facility] [address] [phone] KarenEGFR-AF CAYMAN ISLANDER>60Normal>=60The [facility] CenterComment on above:Performed By: #### CMP, TROP ####[facility] [address] [phone] KarenEGFR-NON AF CAY[place] ISLANDER>60Normal>=60The [facility] CenterComment on above:Performed By: #### CMP, TROP ####[facility] [address] [place], [place] [address]Gerken KarenGlobulin (S) [Mass/Vol]3.6 g/dLNormalThe [facility] Comment on above:Performed By: #### CMP, TROP ####[facility] [address] [place], [place] [address]Gerken KarenGlucose [Mass/Vol]99 mg/oKVulkoe81-485Vot [facility] CenterComment on above:Performed By: #### CMP, TROP ####[facility] [address] [place] [address] KarenPotassium [Moles/Vol]3.4 mmol/LNormal 3.4-5.0The [facility] CenterComment on above:Performed By: #### CMP, TROP ####[facility] [address] [place], [place] [address]Gerken KarenProtein [Mass/Vol]7.2 g/dLNormal6.1-8.2The [facility] CenterComment on above:Performed By: #### CMP, TROP ####[facility] [address] [place], [place] [address]Gerken KarenSodium [Moles/Vol]139 mmol/LNormal 137-145The [facility] CenterComment on above:Performed By: #### CMP, TROP ####[facility] [address] [place], [place] [address]Gerken KarenUrea nitrogen [Mass/Vol]19.0 mg/dLNormal9.0-20.0The [facility] Comment on above:Performed By: #### CMP, TROP ####[facility] [address] [address]Gerken KarenUrea nitrogen/Creatinine [Mass ratio]18.6 mg/mgNoChildren's Hospital for RehabilitationComment on above:Performed By: #### CMP, TROP ####[facility] [address] [address]Gerken KarenPROTIMEon 62-79-9828XNR Coag (PPP) [Relative time]1.05 {INR}NormalThe [facility] Medical CenterComment on above:Performed By: #### PT, PTT #### [facility] [address] [address] Loc KarenPT Coag (PPP) [Time]10.9 sNormal9.0-11.6The [facility] CenterComment on above:Performed By: #### PT, PTT #### [facility] [address] [address] Loc KarenPT Coag (PPP) [Time]PLEASE NOTE: NORMAL RANGE CHANGE 06-22-2014 DUE TO REAGENT LOT CHANGENoChildren's Hospital for RehabilitationComment on above:Performed By: #### PT, PTT #### [facility] [address] [address] Loc KarenPT Coag (PPP) [Time]SEE BELOWNoChildren's Hospital for RehabilitationComment on above:Result Comment: DESIRED INR: 2.0 - 3.0 CONDITIONS NOT LISTED BELOW 2.5 - 3.5 FOR PROSTHETIC HEART VALVE REPLACEMENT 2.5 - 3.5 RECURRENT THROMBOSIS Performed By: #### PT, PTT #### [facility] [address] [address] Loc KarenPTTon 52-36-2668bZTN Coag (Bld) [Time]24.8 wCpdjku73.3-36.2The [facility] CenterComment on above:Performed By: #### PT, PTT ####[facility] [address] [address]Gerken KarenaPTT Coag (Bld) [Time]PLEASE NOTE: NORMAL RANGE CHANGE 08-29-2015 DUE TO REAGENT LOT CHANGEUpper Valley Medical CenterComment on above:Performed By: #### PT, PTT ####[facility] [address] KarenTROPONIN - Ion 37-76-5147Hbxtrwmm I.cardiac [Mass/Vol]SEE BELOWNoChildren's Hospital for RehabilitationComment on above:Result Comment: <0.034 ng/ml NEGATIVE 0.034- 0.119 INDETERMINATE 0.120 AMI CUT OFFPerformed By: #### CMP, TROP ####[facility] [address] KarenTroponin I.cardiac [Mass/Vol]ng/mLNormal<=0.034[facility] HospitalComment on above: Performed By: #### CMP, TROP ####[facility] [address] [place], [place] [address]Gerken KarenCBC AUTO DIFFon 29-95-1633Tndzcakiq (Bld) [#/Vol]0.1 103/ulNormal0.0-0.1[facility] HospitalComment on above:Performed By: #### CBC #### [facility] [address] [place] [address] Loc KarenBasophils/100 WBC (Bld)1.2 %Normal0.2-2.0[facility] Comment on above:Performed By: #### CBC #### [facility] [address] [place] [address] Loc KarenEosinophils (Bld) [#/Vol]0.1 103/ulNormal0.0-0.7The [facility] CenterComment on above:Performed By: #### CBC #### [facility] [address] [place] [address] Loc KarenEosinophils/100 WBC (Bld)1.1 %Normal0.9-7.0The [facility] Comment on above:Performed By: #### CBC #### [facility] [address] [address] Loc KarenErythrocyte distribution width (RBC) [Ratio]14.8 %Luqbsd28.0-15.0The [facility] CenterComment on above:Performed By: #### CBC #### [facility] [address] [place] [address] Loc KarenHematocrit (Bld) [Volume fraction]42.7 %Taasvm50.0-54.0The [facility] CenterComment on above:Performed By: #### CBC #### [facility] [address] [place] [address] Loc KarenHemoglobin (Bld) [Mass/Vol]14.8 g/zOAcanlu71.0-18.0The [facility] CenterComment on above:Performed By: #### CBC #### [facility] [address] [place] [address] Loc KarenIG #0.05 10e3/ulCritically high0.00-0.03The [facility] CenterComment on above:Performed By: #### CBC #### [facility] [address] [place] [address] Loc KarenIG %0.4 %Normal0.0-0.5The [facility] CenterComment on above: Performed By: #### CBC #### [facility] [address] [place] [address] Loc KarenLymphocytes (Bld) [#/Vol]2.7 103/ulNormal1.2-3.8The [facility] CenterComment on above:Performed By: #### CBC #### [facility] [address] [place] [address] Loc KarenLymphocytes/100 WBC (Bld)23.1 %Zfxued37.5-60.0The [facility] Comment on above:Performed By: #### CBC #### [facility] [address] [place] [address] Loc KarenMANUAL DIFF REQNONormalThe [facility] CenterComment on above: Performed By: #### CBC #### [facility] [address] [place], [place] [id number] Loc KarenMCH (RBC) [Entitic mass]27.1 kwYbqrjz93.9-34.0The [facility] Comment on above:Performed By: #### CBC #### [facility] [address] [place] [address] Loc KarenMCHC (RBC) [Mass/Vol]34.7 g/vWCxtnxd44.9-35.2The [facility] Comment on above:Performed By: #### CBC #### [facility] [address] [place] [address] Loc KarenMCV (RBC) [Entitic vol]78.2 fLCritically low80.0-94.0The [facility] CenterComment on above:Performed By: #### CBC #### [facility] [address] [place] [address] Loc KarenMonocytes (Bld) [#/Vol]1.0 103/ulCritically high0.3-0.8The [facility] CenterComment on above:Performed By: #### CBC #### [facility] [address] [place] [address] Loc KarenMonocytes/100 WBC (Bld)8.4 %Normal1.7-12.0The [facility] Comment on above:Performed By: #### CBC #### [facility] [address] [place] [address] Loc KarenNeutrophils (Bld) [#/Vol]7.6 103/ulCritically high1.4-6.5The [facility] CenterComment on above:Performed By: #### CBC #### [facility] [address] [place] [address] Loc KarenNeutrophils/100 WBC (Bld)65.8 %Kgbwjq06.0-75.0The [facility] Comment on above:Performed By: #### CBC #### [facility] [address] [place] [address] Loc KarenPlatelet mean volume (Bld) [Entitic vol]9.3 fLCritically low9.5-13.5 The [facility] HospitalComment on above:Performed By: #### CBC #### [facility] [address] [place], [place] [address] Loc KarenPlatelets (Bld) [#/Vol]285 103/fcFzgpkl077-423TedBerger Hospital Comment on above:Performed By: #### CBC #### [facility] [address] [place] [address] Loc KarenRBC (Bld) [#/Vol]5.46 106/ulNormal4.70-6.10The [facility] Comment on above:Performed By: #### CBC #### [facility] [address] [place] [address] Loc KarenWBC (Bld) [#/Vol]11.6 103/ulCritically high4.0-11.0The [facility] CenterComment on above:Performed By: #### CBC #### [facility] [address] [place] [address] Loc KarenPROF CHEM 8 (BAS METB)on 71-11-2312Ouhqn gap [Moles/Vol]20.8 mmol/L NormalBerger HospitalComment on above:Performed By: #### TROP, TSH, T4, BMP #### [facility] [address] [place] [address] Loc KarenCalcium [Mass/Vol]9.9 mg/dLNormal8.4-10.2[facility] Comment on above:Performed By: #### TROP, TSH, T4, BMP #### [facility] [address] [place] [address] Loc KarenChloride [Moles/Vol]102 mmol/XVvvpld49-936XczBerger Hospital Comment on above:Performed By: #### TROP, TSH, T4, BMP #### [facility] [address] [place] [address] Loc KarenCO2 [Moles/Vol]18.4 mmol/LCritically low22.0-30.0The [facility] CenterComment on above:Performed By: #### TROP, TSH, T4, BMP #### [facility] [address] [place] [address] Loc KarenCreatinine [Mass/Vol]1.50 mg/dLCritically high0.66-1.25The [facility] Centerment on above:Performed By: #### TROP, TSH, T4, BMP #### [facility] [address] [place] [address] Loc KarenEGFR-AF FTESPMUK68 mL/min/1.95e1Rioykphflm low>=60The [facility] CenterComment on above:Performed By: #### TROP, TSH, T4, BMP #### [facility] [address] [place] [address] Loc KarenEGFR-NON AF KNSDBXYI03 mL/min/1.45l1Xuouhkgnoc low>=60The [facility] CenterComment on above:Performed By: #### TROP, TSH, T4, BMP #### [facility] [address] [place] [address] Loc KarenGlucose [Mass/Vol]101 mg/jIEqrrvp38-591Bdu [facility] CenterComment on above:Performed By: #### TROP, TSH, T4, BMP #### [facility] [address] [place] [address] Loc KarenPotassium [Moles/Vol]3.2 mmol/LCritically low3.4-5.0The [facility] Centerment on above:Performed By: #### TROP, TSH, T4, BMP #### [facility] [address] [place] [address] Loc KarenSodium [Moles/Vol]138 mmol/WGykkiq616-433Efp [facility] Comment on above:Performed By: #### TROP, TSH, T4, BMP #### [facility] [address] [place] [address] Loc KarenUrea nitrogen [Mass/Vol]26.0 mg/dLCritically high9.0-20.0The [facility] Centerment on above:Performed By: #### TROP, TSH, T4, BMP #### [facility] [address] [place], [place] [address] Loc KarenUrea nitrogen/Creatinine [Mass ratio]17.3 mg/mgNoChildren's Hospital for RehabilitationComment on above:Performed By: #### TROP, TSH, T4, BMP #### [facility] [address] [place] [address] oLc OrrenT4on 82-17-8344B1 [Mass/Vol]7.40 ug/dLNormal5.53-11.00The [facility] CenterComment on above:Performed By: #### TROP, TSH, T4, BMP #### [facility] [address] [place] [address] KarenTROPONIN - Ion 61-28-6615Fqigsxui I.cardiac [Mass/Vol]ng/mLNormal <=0.034The [facility] CenterComment on above:Performed By: #### TROP, TSH, T4, BMP #### [facility] [address] [place], [place] [address]enTroponin I.cardiac [Mass/Vol]SEE [facility] Comment on above:Result Comment: <0.034 ng/ml NEGATIVE 0.034-0.119 INDETERMINATE 0.120 AMI CUT OFFPerformed By: #### TROP, TSH, T4, BMP #### [facility] [address] [place] [address] Loc KarenTSHon 91-42-9818OSB QnSEE [facility] CenterComment on above:Result Comment: <0.34 UIU/ml HYPERTHYROID 0.34-5.60 UIU/ml EUTHYROID >5.60 UIU/ml HYPOTHYROIDPerformed By: #### TROP, TSH, T4, BMP #### [facility] [address] [place] [address] Qn11.107 uIU/mLCritically high0.470-4.680[facility] Comment on above:Performed By: #### TROP, TSH, T4, BMP #### [facility] [address] [place] [address] Loc KarenXR CHEST 2 Von 52-35-6225HC CHEST 2 VEXAM:XR CHEST 2 V 12/04/2019 INDICATION: SHORTNESS OF BREATH COMPARISON: None. TECHNIQUE: PA and lateral chest radiographs. FINDINGS: The cardiomediastinal contour is within normal limits. There is chronic bronchial wall thickening. No focal consolidative opacity. No pleural effusion. No acute abnormalities of the visualized osseous structures. IMPRESSION: Chronic bronchial wall thickening is likely related to sequela of COPD. No focal consolidative opacity.NormalBerger HospitalXR CINERADIOGRAPHYon 63-71-1181BK UPWXMMMZDOBRPGR[address]46 [place] [address] Patient: OLE STEPHENS. Exam Date: 12/17/2018 : 1965 Gender:M Ordering : DR CARLOS ENRIQUE MAGUIRE M.D. Admission #: [id number] Family : Order #: [id number] CLICK HERE TO VIEW EXAM RADIOLOGY REPORT [...] No visible esophageal damage. Dictated by: Ana Benosn M.D. on 12/17/2018 at 13:58 Approved by: Ana Benson M.D. on 12/17/2018 at 14:01[facility] CenterXR UPPER GI W AIR KUBon [id number] UPPER GI W AIR [id number] [place] [address] Patient: OLE STEPHENS. Exam Date: 12/17/2018 : 1965 Gender:M Ordering : DR CARLOS ENRIQUE MAGUIRE M.D. Admission #: [id number] Family : Order #: [id number] CLICK HERE TO VIEW EXAM RADIOLOGY REPORT [...] by: Ana Benson M.D. on 12/17/2018 at 14:01[facility] Vital Signs Date TimeVital SignValuePerforming RlsobwsoqJwpndogy81-70-3779 09:21-0500Body abwelj604.3 cmTimothy Blaine DO Work Phone: [employer] CorporationSaint Joseph Hospital of KirkwoodYlocaqbanl99-93-7445 09:21-0500Body mass index (BMI) [Ratio]18.75 kg/w5Zwbrdia Blaine DO Work Phone: [employer] CorporationSaint Joseph Hospital of KirkwoodUlpobebmjw14-93-2580 09:21-0500Body temperature 98.8 [degF]Jean Pierre Blaine DO Work Phone: [employer] Qxavcwluzv71-55-0271 09:21-0500Body vheolh33.61 kgTimothy Blaine DO Work Phone: [employer] Axcjayqfmn46-18-2704 09:21-0500Diastolic blood pagzpzds70 mm[Hg]Jean Pierre Blaine DO Work Phone: [employer] Cjpamtqujw68-49-1848 09:21-0500Heart rate76 /min Jean Pierre Blaine DO Work Phone: [employer] Ijdknlmmxp92-26-7705 09:21-7132AlM6% (BldA) [Mass fraction]99 %Jean Pierre Blaine DO Work Phone: [employer] Wwvvevhzdz61-61-8524 09:21-0500Systolic blood oikoxlun149 mm[Hg]Jean Pierre Blaine DO Work Phone: [facility] CenterLuocyqvjlg05-48-4838 09:11-0500Body .3 cmAangi Salgado MD Work Phone: [facility] CenterUlvkngayob94-90-6355 09:11-0500Body mass index (BMI) [Ratio]18.61 kg/j2FcojbkOlena Salgado MD Work Phone: [facility] CenterKqchlqdcfp33-41-8656 09:11-0500Body yfobql33.15 kgOlena Salgado MD Work Phone: [facility] CenterRhobpxnzyp40-32-4132 09:11-0500Diastolic blood ntfvipnu22 mm[Hg]Olena Salgado MD Work Phone: [facility] CenterLxiecobsfs53-28-9654 09:11-0500Systolic blood jzulyxez571 mm[Hg]Olena Salgado MD Work Phone: 1(902)[facility]-0806[facility] CenterPuqlbefexv64-02-6225 08:12-0400Body dwzyhu322.3 cmTimothy Blaine DO Work Phone: [facility] CenterZbdblgmaaa39-86-1683 08:12-0400Body mass index (BMI) [Ratio]16.57 kg/b1Viqzjco Blaine DO Work Phone: 1(161)[facility] [place], [place] [address]Hncbxqrsok13-49-3086 08:12-0400Body temperature 97.5 [degF]Jean Pierre Blaine DO Work Phone: [phone] [place], [place] [address]Mzqkgfwvrh97-34-5655 08:12-0400Body aerutq95.89 kgTimothy Blaine DO Work Phone: 1(095)189-[address] [place], [place] [address]Foyqwypylo67-02-7784 08:12-0400Diastolic blood ehbabghm13 mm[Hg]Jean Pierre Blaine DO Work Phone: 1(379)[facility] [place], [place] [address]Avpkmpcxoy57-87-0750 08:12-0400Heart rate68 /min Jean Pierre Blaine DO Work Phone: 1(157)[facility]-1238[facility] Cancer CenterHkndinxgxp29-24-4820 08:12-0283QrC8% (BldA) [Mass fraction]99 %Jean Pierre Blaine DO Work Phone: 1(711)625-[address] [place] [address]-22-2025 08:12-0400Systolic blood hhedzbek408 mm[Hg]Jean Pierre Galo DO Work Phone: noCO Xlfdkoynju65-39-4088 10:37-0400Diastolic blood dqezboby42 mm[Hg]Gabi Verhoff PA-C Work Phone: [facility] KenguruCczxwx85-05-6460 10:37-0400Heart rate 66 /minMegan Verhoff PA-C Work Phone: [facility] KenguruGvegpv40-00-7742 10:37-0400 Respiratory rate18 /minMegan Verhoff PA-C Work Phone: [facility] KenguruDpjdwg86-79-9936 10:37-9212ElR7% (BldA) [Mass fraction]100 %Gabi Verhoff PA-C Work Phone: [facility] [employer] Hgmwuh19-34-0846 10:37-0400Systolic blood cpxaqovs184 mm[Hg]Gabi Verhoff PA-C Work Phone: [facility] [employer] Nwbyxs65-57-7203 08:55-0400Body khpxuc577.3 cmJelb Aguirreoll NEUROPSYCHIATRIC AIDE-VETERINARIAN Work Phone: [facility] [employer] Vwtpsh90-12-2938 08:55-0400Body mass index (BMI) [Ratio]16.86 kg/c0Ktpveqz Ortiz NEUROPSYCHIATRIC AIDE-VETERINARIAN Work Phone: [facility] [employer] Ihvdco47-39-0189 08:55-0400Body utekuk43.8 kgMonica Aguirreoll NEUROPSYCHIATRIC AIDE-VETERINARIAN Work Phone: [facility] Vxfsnj93-89-0818 08:55-0400Diastolic blood mm[Hg]Monica Angel NEUROPSYCHIATRIC AIDE-VETERINARIAN Work Phone: [facility]10-07-2025 08:55-0400Heart rate 60 /minAyderic Ortiz NEUROPSYCHIATRIC AIDE-VETERINARIAN Work Phone: [facility]10-07-2025 08:55-0400Systolic blood qfllhexc897 mm[Hg]Monica Ortiz NEUROPSYCHIATRIC AIDE-VETERINARIAN Work Phone: [facility]09-26-2025 11:15-0400Body ghsyjy825.26 cmDacornelius Maguire II Work Phone: 1(011)[address]09-26-2025 11:15-0400 Body mass index (BMI) [Ratio]16.1 kg/n0Tmhbmb Maguire II Work Phone: 1(593)[address]09-26-2025 11:15-0400 Body izkfdbfuvre54.3 [degF]Carlos Enrique Maguire II Work Phone: 1(996)[address] [place], [place] 7292109-26-2025 11:15-0400 Body ygeeef91.49 kgDacornelius Maguire II Work Phone: 1(396)[address]09-26-2025 11:15-0400 Diastolic blood wtrjeygj22 mm[Hg]Carlos Enrique Maguire II Work Phone: 1(698)[address] [place], [place] 7292109-26-2025 11:15-0400 Heart rate54 /Rhiannon Maguire II Work Phone: 1(084)[address] [place], [place] 7292109-26-2025 11:15-0400 Respiratory rate18 /Rhiannon Maguire II Work Phone: 1(197)[address] [place], [place] 7292109-26-2025 11:15-0400 SaO2% (BldA) [Mass fraction]99 %Carlos Enrique Maguire II Work Phone: 1(973)[address]09-26-2025 11:15-0400 Systolic blood mm[Hg]Carlos Enrique Maguire II Work Phone: 1(770)[address] [place], [place] 7292109-17-2025 11:32-0400 Body rvghwi053.3 Bc Morrell BEAVER TRAPPER Work Phone: [facility] CenterTnhnlakwlh93-94-7573 11:32-0400Body mass index (BMI) [Ratio]16.69 kg/v4RigejaHaley Morrell BEAVER TRAPPER Work Phone: 1(419)483-[address] [place], [place] [address]Qrnqlsprit02-24-6593 11:32-0400Body ksbewg24.26 kgShmarymoses Morrell BEAVER TRAPPER Work Phone: [facility] CenterTavpiruehu24-90-5555 11:32-0400Diastolic blood pzdnbopn12 mm[Hg]Haleyaidan Morrell BEAVER TRAPPER Work Phone: [facility] CenterThucjaelsh86-59-1385 11:32-0400Heart rate80 /min Haley Morrell BEAVER TRAPPER Work Phone: 1(650)861-[address] [place], [place] [address]Dlcdgmvgqr83-59-6771 11:32-0400Respiratory rate16 /minSherri Mccleary BEAVER TRAPPER Work Phone: 1(718)330-[address] [place], [place] [address]Dckwpqmmbb93-25-8395 11:32-3074JyN1% (BldA) [Mass fraction]98 %Haley Morrell BEAVER TRAPPER Work Phone: [facility] CenterCysnxfjloe65-01-9386 11:32-0400Systolic blood riurpffg148 mm[Hg]Haley Morrell BEAVER TRAPPER Work Phone: 1(200)235-[address] [place], [place] [address]Zqbtnbwlqr16-55-1898 15:49-0400Body kwbzyp213.3 cmSmarlene Reynavely BEAVER TRAPPER Work Phone: 1(916)525-[address] [place], [place] [address]Hgilytcmnc89-24-1717 15:49-0400Body mass index (BMI) [Ratio]16.83 kg/r4VujpcfHaley Reynavely BEAVER TRAPPER Work Phone: [facility] CenterCoimhzofld61-03-2047 15:49-0400Body vtafar40.71 kgShveronica Reynavely BEAVER TRAPPER Work Phone: 1(128)296-[address] [place], [place] [address]Vlircotorx83-43-9827 15:49-0400Diastolic blood mimkyehw39 mm[Hg]Haley Morrell BEAVER TRAPPER Work Phone: 1(924)210-[address] [place], [place] [address]Kqupxaowqj68-90-5717 15:49-0400Heart rate84 /min Haley Morrell BEAVER TRAPPER Work Phone: 1(336)484-[address] [place], [place] [address]Gajaeogdne16-86-5663 15:49-0400Respiratory rate17 /minSri Ahsan BEAVER TRAPPER Work Phone: [facility] CenterVgzhtlmosb67-22-7412 15:49-2099PbM1% (BldA) [Mass fraction]96 %Haley Morrell NP Work Phone: [facility] CenterNtsntnkgqy76-86-5351 15:49-0400Systolic blood niqgzkar434 mm[Hg]Haley Morrell BEAVER TRAPPER Work Phone: [facility] CenterXqdggydidc90-36-7900 10:12-0400Body .26 cmDacornelius Maguire II Work Phone: 1(849)[address]09-09-2025 10:12-0400 Body mass index (BMI) [Ratio]16.2 kg/o3Wpgivucornelius Maguire II Work Phone: 1(188)[address]09-09-2025 10:12-0400 Body bjommvwysig75 [degF]Carlos Enrique Maguire II Work Phone: 1(568)[address]09-09-2025 10:12-0400 Body pyhenu05.95 kgDacornelius Maguire II Work Phone: 1(548)47[address]09-09-2025 10:12-0400 Diastolic blood nlwpsmki47 mm[Hg]Carlos Enrique Maguire II Work Phone: 1(640)299-[address] [place], [place] 4413509-09-2025 10:12-0400 Heart rate75 /Rhiannon Maguire II Work Phone: 1(824)[address]09-09-2025 10:12-0400 Respiratory rate18 /Rhiannon Maguire II Work Phone: 1(208)006-[address] [place], [place] 4413509-09-2025 10:12-0400 SaO2% (BldA) [Mass fraction]99 %Carlos Enrique Maguire II Work Phone: 1(602)333-[address] [place], [place] 4413509-09-2025 10:12-0400 Systolic blood bhdisbah358 mm[Hg]Carlos Enrique Maguire II Work Phone: 1(230)[address]09-03-2025 12:55-0400 Body mewhdx618.3 cmMebryce PATRICIO-C [facility] Phone[facility]-2025 12:55-0400Body mass index (BMI) [Ratio]15.8 kg/o9Oeymtbryce Wardff PA-C Work Phone: [facility]09-03-2025 12:55-0400Body zpxvso45.53 kgMegan Verhoff PA-C Work Phone: [facility]09-03-2025 12:55-0400Diastolic blood xtueyptd15 mm[Hg]Gabi Verhoff PA-C Work Phone: [facility]09-03-2025 12:55-0400Heart rate 100 /minMegan Verhoff PA-C Work Phone: [facility]09-03-2025 12:55-0400 Respiratory rate18 /minMegan Verhoff PA-C Work Phone: [facility]09-03-2025 12:55-1274GyF9% (BldA) [Mass fraction]100 %Gabi Verhoff PA-C Work Phone: [facility]09-03-2025 12:55-0400Systolic blood newgqqyl777 mm[Hg]Gabi Verhoff PA-C Work Phone: [facility]09-02-2025 09:08-0400Body nejmnf914.26 cmDaanthonyelisabeth Maguire II Work Phone: [facility]09-02-2025 09:08-0400 Body mass index (BMI) [Ratio]16.7 kg/o9Qjslvn Maguire II Work Phone: [facility]09-02-2025 09:08-0400 Body poqxwsvriiy31.2 [degF]Carlos Enrique Maguire II Work Phone: [facility]09-02-2025 09:08-0400 Body xyzilq56.31 kgDacornelius Maguire II Work Phone: [facility]09-02-2025 09:08-0400 Diastolic blood mm[Hg]Carlos Enrique Maguire II Work Phone: 1(419)483-[address] [place], [place] 4413509-02-2025 09:08-0400 Heart rate75 /Rhiannon Maguire II Work Phone: 1(222)616-[address] [place], [place] 4333309-02-2025 09:08-0400 Respiratory rate16 /Rhiannon Maguire II Work Phone: 1(288)592-[address] [place], [place] 4333309-02-2025 09:08-0400 SaO2% (BldA) [Mass fraction]99 %Carlos Enrique Maguire II Work Phone: 1(733)775-[address] [place], [place] 4333309-02-2025 09:08-0400 Systolic blood zivwekgh570 mm[Hg]Carlos Enrique Maguire II Work Phone: 1(537)810-[address] [place], [place] 4413508-20-2025 10:35-0400 Body xmyeek600.3 cmSmarlene Morrell BEAVER TRAPPER Work Phone: [facility] CenterLxqgwqkrga81-03-8484 10:35-0400Body mass index (BMI) [Ratio]16.69 kg/z1HyuxexHaley Morrell BEAVER TRAPPER Work Phone: [facility] CenterEsbmymqglb54-95-5171 10:35-0400Body .26 kgHaley Morrell BEAVER TRAPPER Work Phone: [facility] CenterDtzusosvks88-77-2429 10:35-0400Diastolic blood gqooconc80 mm[Hg]Haley Morrell BEAVER TRAPPER Work Phone: [facility] CenterQurocebkql07-58-9827 10:35-0400Heart rate55 /min Haley Morrell BEAVER TRAPPER Work Phone: [facility] CenterAcmfgnrzqp34-87-6414 10:35-0400Respiratory rate17 /minSmarlene Morrell BEAVER TRAPPER Work Phone: [facility] CenterTxpcacjqhv99-79-9506 10:35-5245NbD8% (BldA) [Mass fraction]99 %Haley Morrell BEAVER TRAPPER Work Phone: [facility] CenterDnotsdzknn58-18-0551 10:35-0400Systolic blood hvkyonbt910 mm[Hg]Haley Morrell BEAVER TRAPPER Work Phone: [facility] CenterOdkayupufz63-43-5107 09:49-0400Body .26 cmDacornelius Maguire II Work Phone: [facility]08-13-2025 09:49-0400 Body mass index (BMI) [Ratio]16.7 kg/k5Urqxcmcornelius Maguire II Work Phone: [facility]08-13-2025 09:49-0400 Body hpsnvyqoouk29.9 [degF]Carlos Enrique Maguire II Work Phone: 1(101)627-[address] [place], [place] 4413508-13-2025 09:49-0400 Body jaonia85.25 kgDacornelius Maguire II Work Phone: 1(172)834-[address] [place], [place] 4413508-13-2025 09:49-0400 Diastolic blood bysmalmy06 mm[Hg]Carlos Enrique Maguire II Work Phone: 1(883)[address]08-13-2025 09:49-0400 Heart rate58 /Rhiannon Maguire II Work Phone: 1(288)169-[address] [place], [place] 4413508-13-2025 09:49-0400 Respiratory rate14 /Rhiannon Maguire II Work Phone: 1(105)252-[address] [place], [place] 4413508-13-2025 09:49-0400 SaO2% (BldA) [Mass fraction]99 %Carlos Enrique Maguire II Work Phone: 1(688)983-[address] [place], [place] 4413508-13-2025 09:49-0400 Systolic blood ucsgqhbd122 mm[Hg]Carlos Enrique Maguire II Work Phone: 1(446)124-[facility]07-23-2025 08:50-0400 Diastolic blood vepbjmoa96 mm[Hg]Gabi Verhoff PA-C Work Phone: [facility]Acet[facility] SemiconductorStat[facility]07-23-2025 08:50-0400Heart rate 51 /minMegan Verhoff PA-C Work Phone: [facility]07-23-2025 08:50-0400 Respiratory rate18 /minMegan Verhoff PA-C Work Phone: [facility]07-23-2025 08:50-0537MnG9% (BldA) [Mass fraction]100 %Gabi Verhoff PA-C Work Phone: [facility] [employer] Netake60-40-8873 08:50-0400Systolic blood iafqyagl351 mm[Hg]Gabi Verhoff PA-C Work Phone: [facility] [employer] Xesnsj88-94-5456 12:29-0400Body ufrcpr579.3 cmMegan Verhoff PA-C Work Phone: [facility] [employer] Pckfdj21-71-0385 12:29-0400Body mass index (BMI) [Ratio]16.54 kg/w8Spytt Verhoff PA-C Work Phone: [facility]06-11-2025 12:29-0400Body qztgwe25.8 kgMegan Verhoff PA-C Work Phone: [facility] [employer] Ubhzyj53-58-2602 12:29-0400Diastolic blood bsqyasvh48 mm[Hg]Gabi Verhoff PA-C Work Phone: [facility] [employer] Pujfeq17-45-8212 12:29-0400Heart rate 59 /minMegan Verhoff PA-C Work Phone: [facility]06-11-2025 12:29-0400 Respiratory rate18 /minMegan Verhoff PA-C Work Phone: [facility] [employer] Rezqka26-01-8909 12:29-8302WwE2% (BldA) [Mass fraction]100 %Gabi Verhoff PA-C Work Phone: [facility] [employer] Elcvox41-69-4947 12:29-0400Systolic blood padpulny996 mm[Hg]Gabi Verhoff PA-C Work Phone: [facility]05-27-2025 10:11-0400Body .3 cmSherri Mccleary BEAVER TRAPPER Work Phone: [facility] CenterMqujrkwlmk69-09-0067 10:11-0400Body mass index (BMI) [Ratio]16.89 kg/o9NvjeltHaley Morrell BEAVER TRAPPER Work Phone: [facility] CenterZyeltrtxqt14-25-8172 10:11-0400Body uihski44.89 kgHaley Morrell BEAVER TRAPPER Work Phone: [facility] CenterRbikgdfpfa85-29-8182 10:11-0400Diastolic blood pllycaeh52 mm[Hg]Haley Morrell BEAVER TRAPPER Work Phone: [facility] CenterQpdhcutcsz74-48-3531 10:11-0400Heart rate54 /min Haley Morrell BEAVER TRAPPER Work Phone: [facility] CenterXepvncdvwy77-88-2818 10:11-0400Respiratory rate16 /minSmarlene Morrell BEAVER TRAPPER Work Phone: 1([phone] CenterUzdqbawjxe35-65-6142 10:11-8250GxV8% (BldA) [Mass fraction]98 %Haley Morrell BEAVER TRAPPER Work Phone: [facility] CenterWmlbdzjbjh04-76-1503 10:11-0400Systolic blood rtdfaufc179 mm[Hg]Haley Morrell BEAVER TRAPPER Work Phone: [facility] CenterNvnqibegbv10-38-8714 08:38-0400Body ezdcos100.3 cmKirbyen Hemmer PA Work Phone: 1([phone] CenterLhiduwyrja14-12-5191 08:38-0400Body mass index (BMI) [Ratio]17.1 kg/k1Rikzf Hemmer PA Work Phone: 1([phone] CenterVynssmrcge62-93-9694 08:38-0400Body temperature 97.3 [degF]Dorian Hemmer PA Work Phone: 1([phone] CenterMibryjymkb90-73-1712 08:38-0400Body vdtolf49.53 kgDorian Hemmer PA Work Phone: [facility] CenterYbtaznrfns90-68-3037 08:38-0400Diastolic blood zlvuzqkf20 mm[Hg]Dorian Hemmer PA Work Phone: [facility] CenterNsteycufxj22-04-9043 08:38-0400Heart rate54 /min Dorian Hemmer PA Work Phone: [facility] CenterJzdzrylzhk55-68-8103 08:38-0400Respiratory rate16 /minKirbykathryn Arellanoclay PA Work Phone: [facility]woodCrveflsagu13-06-1714 08:38-4343HbM9% (BldA) [Mass fraction]98 %Dorian Arellanoclay PA Work Phone: [facility] KirkwoodHjbpktxrgg76-00-2015 08:38-0400Systolic blood mm[Hg]Dorian Arellanoclay PA Work Phone: [facility] KirkwoodMbpeuehluh17-27-7818 11:05-0500Body fncpux614.3 Bc Morrell BEAVER TRAPPER Work Phone: [facility] KirkwoodCjycpuohti15-86-7852 11:05-0500Body mass index (BMI) [Ratio]16.69 kg/t1IdyqjaHaley Morrell BEAVER TRAPPER Work Phone: [facility] CenterOstbjhndfu90-16-6912 11:05-0500Body vedriz97.26 kgHaley Morrell BEAVER TRAPPER Work Phone: [facility] CenterJlavnjbqly33-00-6230 11:05-0500Diastolic blood edaesuzt59 mm[Hg]Haley Morrell BEAVER TRAPPER Work Phone: [facility] KirkwoodMdxrlwpnzl10-47-1444 11:05-0500Heart rate56 /min Haley Morrell BEAVER TRAPPER Work Phone: [facility] KirkwoodBybxxoseir52-23-7622 11:05-0500Respiratory rate17 /minSmarlene Morrell BEAVER TRAPPER Work Phone: [facility] KirkwoodXxqipzbglg05-62-7511 11:05-2904HyU9% (BldA) [Mass fraction]99 %Haley Morrell BEAVER TRAPPER Work Phone: [facility] KirkwoodTqxadkvvce36-53-0325 11:05-0500Systolic blood zhluxyrs100 mm[Hg]Haley Morrell BEAVER TRAPPER Work Phone: [facility] KirkwoodUesupdzxpy25-75-5966 14:00-0500Body uolohi233.3 Fatuma Kong BEAVER TRAPPER Work Phone: [facility] KirkwoodJyhwcusoan84-94-8610 14:00-0500Body mass index (BMI) [Ratio]17.66 kg/m2Michael Kong BEAVER TRAPPER Work Phone: [facility] CenterFieuxfnuam58-26-2631 14:00-0500Body uprssd89.25 kgMichael Kong BEAVER TRAPPER Work Phone: [facility] CenterJghjpfaihq24-05-8448 14:00-0500Diastolic blood sadoedic50 mm[Hg]Michael Derek BEAVER TRAPPER Work Phone: [facility] CenterCjsavghwtn69-65-4844 14:00-0500Heart rate67 /min Michael Kong BEAVER TRAPPER Work Phone: [facility] CenterSheosbjmmj32-86-1535 14:00-0500Respiratory rate17 /minMichael Kong BEAVER TRAPPER Work Phone: [facility] CenterFdetyjrcrg70-66-8341 14:00-2106UbM9% (BldA) [Mass fraction]99 %Michael Kong BEAVER TRAPPER Work Phone: [facility] CenterEbtlbapflz41-34-6618 14:00-0500Systolic blood epfrwjpw393 mm[Hg]Michael Kong BEAVER TRAPPER Work Phone: [facility] CenterJtbomhuopm66-55-2273 13:06-0500Body iyaimo430.3 cmMichael Kong BEAVER TRAPPER Work Phone: [facility] CenterLntxeweoit70-53-8879 13:06-0500Body mass index (BMI) [Ratio]17.43 kg/m2Michael Kong BEAVER TRAPPER Work Phone: [facility] CenterEkrslytgpi86-16-2483 13:06-0500Body ubfxhz67.52 kgMichael Kong BEAVER TRAPPER Work Phone: [facility] CenterQnyvrawkws98-30-4590 13:06-0500Diastolic blood vzricsbp16 mm[Hg]Michael Kong BEAVER TRAPPER Work Phone: [facility] CenterJhycwwmiob18-68-2227 13:06-0500Heart rate56 /min Michael Kong BEAVER TRAPPER Work Phone: [facility] CenterUdcjdjwako41-54-3392 13:06-0399HhJ1% (BldA) [Mass fraction]97 %Michael Kong BEAVER TRAPPER Work Phone: [facility] CenterNvsyhdovxn51-45-6746 13:06-0500Systolic blood jjaalmtk271 mm[Hg]Michael Kong BEAVER TRAPPER Work Phone: [facility]10-31-2023 13:25-0400Body bmfjaq270.34 cmJosephine Castillo Other [employer] Other 10-31-2023 13:25-0400Body mass index (BMI) [Ratio]18.6 kg/i9GulspkxaJosephine Castillo Other [employer] Other 10-31-2023 13:25-0400Body avbulxklgwy73.3 [degF] Josephine Castillo Other [employer] Other 10-31-2023 13:25-0400Body avtxmc57.51 kgJosephine Castillo Other [employer] Other 10-31-2023 13:25-0400Diastolic blood rqwjivwl13 mm[Hg] Josephine Castillo Other [employer] Other 10-31-2023 13:25-0400Respiratory rate18 /minJosephine Castillo Other [employer] Other 10-31-2023 13:25-2971BoA9% (BldA) [Mass fraction]96 % Josephine Castillo Other [employer] Other 10-31-2023 13:25-0400Systolic blood kpebbfxw961 mm[Hg] Josephine Castillo Other [employer] Other Encounters Encounter DateEncounter TypeCare ProviderFacilityStart: 08-16-2025 End: 12-00-8183Ejrura flowsheetTimothy L Blaine DO Work Phone: [facility] 230Start: 08-16-2025 End: 32-73-8100Mosikb flowsheetTimothy L Blaine DO Work Phone: [facility] 230Start: 08-16-2025 End: 94-20-3216sdktpdgzlfZUCEYXW L CUTLERNot AvailableStart: 08-16-2025 End: 60-24-7997Tyfwlc outpatient visit 40 minutesTimothy L Blaine DO Work Phone: [facility] 230Comment on above: 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); Anxiety; Reactive depression (situational); Bipolar disorder, in partial remission, most recent episode mixed (HCC)Start: 08-14-2025 End: 83-50-7882Azyrxguaj encounterTimothy L Blaine DO Work Phone: [facility] 230Start: 08-11-2025 End: 38-70-5041Rkuekc outpatient new 45 minutesOlena Taveras MD Work Phone: [facility] AssociatesComment on above:Unintentional weight loss (Primary Dx); Nausea and vomiting, unspecified vomiting type; Abdominal pain of multiple sites; Chronic constipationStart: 08-11-2025 End: 86-74-4433prguwnvqiuGKMWCV VARGAS VNot AvailableStart: 08-10-2025 End: 29-75-6463Yqjbrcslh department patient visitKettering Health Prebletart: 08-10-2025 End: 99-72-4972lubiosxtsrDXUCN N VERHOFFProMedica Menifee Global Medical Centertart: 08-09-2025 End: 38-10-3851qnrjcghyqeNYRZO N VERHOFFProMedica Menifee Global Medical Centertart: 08-04-2025 End: 97-35-0107Vdjiysvvw encounterTimothy L Blaine DO Work Phone: [facility] 230Start: 07-28-2025 End: 96-19-5808Shsjcyezy encounterTimothy L Blaine DO Work Phone: [facility] 230Comment on above: ReferralStart: 07-26-2025 End: 65-36-2085Enmenr flowsheetTimothy L Blaine DO Work Phone: [facility] 230Start: 07-26-2025 End: 49-14-6007Mguejq flowsheetTimothy L Blaine DO Work Phone: [facility] 230Start: 07-26-2025 End: 93-84-3479Xpswkrcmd encounterTimothy L Blaine DO Work Phone: [facility] 230Comment on above:Med RefillStart: 07-26-2025 End: 55-57-1596Hqrdqr outpatient visit 25 minutesTimothy L Blaine DO Work Phone: [facility] 230Comment on above: Wellness examination (Primary Dx); Screening for colon cancer; Severe back pain; Anxiety; Encounter for screening for coronary artery disease; Smoker; Reactive depression (situational); Hypothyroidism, unspecified; Gastroesophageal reflux disease with esophagitis without hemorrhage; Gastric pain; Nausea and vomiting, unspecified vomiting type; Mixed hyperlipidemia; Unintentional weight loss; DermatitisStart: 07-26-2025 End: 62-64-2434Lzjuntj encounter statusTimothy L Blaine DO Work Phone: [facility] HealthcareStart: 07-26-2025 End: 53-28-6603ivnehumtwxIPACMQD L CUTLERNot AvailableStart: 07-24-2025 End: 27-21-9791Ajoykjsuy encounterTimothy L Blaine DO Work Phone: [facility] 230Comment on above: Appointment RequestStart: 07-21-2025 End: 82-53-8848Lijgubejq encounterLeny Madsen [facility] - Pain Management ClinicStart: 07-19-2025 End: 10-53-9816Ajocau outpatient visit 25 minutesGabi Omalley PA-C Work Phone: [facility] - Pain Management ClinicComment on above:Thoracic spine pain (Primary Dx); Thoracic spondylosis without myelopathy; Lumbar spondylosisStart: 07-19-2025 End: 46-99-4253jmrcftjnsjNipyvlkjeev AbdelazizFacility:[facility] - Andersontart: 07-18-2025 End: 64-23-4044Atbeszmge encounterGustavo Castro DO Work Phone: [facility] General SurgeryStart: 07-13-2025 End: 82-70-2934bakphmwpiaXye Pat Phone Call Provider [address] [place] [address] - Pre AdmitStart: 07-12-2025 End: 92-35-5486Anmlpizeq encounterGabi Omalley PA-C Work Phone: [facility] - Pain Management ClinicStart: 07-12-2025 End: 08-94-2561hbgnzueknrMHSGSelect Medical [facility], Beachwoodtart: 07-11-2025 End: 91-48-4770Jajygd outpatient new 30 minutesAydew. d. [facility] Yesica Ortiz NEUROPSYCHIATRIC AIDE-VETERINARIAN Work Phone: [facility] CampusComment on above: Weight loss (Primary Dx); Nausea and vomiting, unspecified vomiting type; Marijuana abuseStart: 07-11-2025 End: 73-57-7351tuplvxojatJLNCDBHProvidence [facility] Start: 07-09-2025 End: 28-63-8212Uvjvkahhg department patient visitSelect Medical [facility], Beachwoodtart: 06-30-2025 End: 76-60-7264woklysjbwpHbqtzo Berry II Work Phone: [facility] Work Phone: Start: 06-30-2025 End: 51-85-5841Jncmxkt encounter Luis Fernando Corrigan NEUROPSYCHIATRIC AIDE-[facility] Work Phone: Start: 06-27-2025 End: 27-21-4908Oogajlyzl encounterAnnaKettering Health Main Campus - Pain Management ClinicStart: 06-26-2025 End: 72-92-8641WjiqisHbyqoc M Shively BEAVER TRAPPER Work Phone: NOJH [facility] MedinceComment on above:Situational mixed anxiety and depressive disorder ; AnxietyStart: 06-23-2025 End: 71-89-9062Sjzrtmllh encounterStacie Carranza [facility] - Pain Management ClinicStart: 06-23-2025 End: 17-14-2685zrrfvdorurPLMRIVP E HOGANProMedica Menifee Global Medical Centertart: 06-21-2025 End: 86-54-7085Kbnenn Bubba Morrell BEAVER TRAPPER Work Phone: [facility] MedinceStart: 06-21-2025 End: 66-76-7069Edvxvn Bubba Morrell BEAVER TRAPPER Work Phone: [facility] MedinceStart: 06-21-2025 End: 54-97-2112Lgjgoi outpatient visit 25 minutesHaley Morrell BEAVER TRAPPER Work Phone: NOWY [facility] MedinceComment on above:Pre- operative clearance (Primary Dx)Start: 06-21-2025 End: 61-64-6198Mkxqtubqzdui stateSmarlene Morrell BEAVER TRAPPER Work Phone: [facility] Work Phone: Start: 06-21-2025 End: 98-70-7800jtfviqirpwUSVFJT M SHIVELYNot AvailableStart: 06-16-2025 End: 30-40-8388Mbtkryrqi encounterTuscarawas Hospital - Pain Management ClinicStart: 06-15-2025 End: 32-10-9600Gskwut outpatient visit 25 minutesHaley Morrell BEAVER TRAPPER Work Phone: [facility] MedinceComment on above:Weight loss (Primary Dx); Gastric pain; Nausea and vomiting, unspecified vomiting type; Dysphagia, unspecified type; Pericardial effusion (HHS-HCC); Skin infectionStart: 06-15-2025 End: 69-24-0332pzcpetieavRUVTCL M SHIVELYNot AvailableStart: 06-15-2025 End: 28-07-8228Kernhn Bubba Morrell BEAVER TRAPPER Work Phone: [facility] CenternceStart: 06-15-2025 End: 93-89-2390Dnnfiy Bubba Morrell BEAVER TRAPPER Work Phone: NO[facility] MedinceStart: 06-13-2025 End: 49-12-6089eyrtcivcgaTifxcu Berry II Work Phone: [facility] Work Phone: Start: 06-13-2025 End: 59-24-2890Oqmduvc encounter procedureAnny Corrigan NEUROPSYCHIATRIC AIDE-[facility] Work Phone: Start: 06-08-2025 End: 84-26-0600FnatjrTesfke B Berry MD Work Phone: noms [facility] [address] [place] [address] MedicineComment on above:Anxiety Start: 06-07-2025 End: 16-82-1548Nuwmgq outpatient visit 15 minutesGabi Omalley PA-C Work Phone: [facility] ClinicComment on above:Thoracic spondylosis without myelopathy (Primary Dx) Start: 06-07-2025 End: 48-65-8955pqioepapzcDWWQL N VERHOFFKettering Health Miamisburgtart: 06-06-2025 End: 53-99-0215jipqrwspnnSpiwav Berry II Work Phone: [facility] Work Phone: Start: 06-06-2025 End: 08-88-3474Mxwjtmf encounter procedureJaqui Zeng NEUROPSYCHIATRIC AIDE-[facility] Work Phone: Start: 05-24-2025 End: 26-45-1767Qoiiaydede Morrell BEAVER TRAPPER Work Phone: n[facility] MedinceStart: 05-24-2025 End: 47-75-6071Gaxbkt flowsheetSmarlene Morrell BEAVER TRAPPER Work Phone: n[facility] MedinceStart: 05-24-2025 End: 59-08-0128bsylogpvebFDJLNF M SHIVELYNot AvailableStart: 05-24-2025 End: 59-57-6015Mdydzw outpatient visit 25 minutesHaley Morrell BEAVER TRAPPER Work Phone: noms [facility] MedinceComment on above:SOB (shortness of breath) (Primary Dx); Nausea and vomiting, unspecified vomiting type; Muscle spasm; Abrasion; Gastroesophageal reflux disease with esophagitis without hemorrhage; Murmur, heartStart: 05-22-2025 End: 10-55-9672Utlxsrjtc encounterCarlos Enrique Maguire MD Work Phone: noms [place] [facility] MedicineComment on above: Thoracic spondylosis without myelopathy; Lumbar spondylosisStart: 05-20-2025 End: 20-59-3818UcxuwoBsirhr B Berry MD Work Phone: noms [place] [facility] MedinceComment on above:Anxiety; Severe back painStart: 05-19-2025 End: 99-28-0727pypqxcdyazCKQEJKL E HOGANVan Wert County Hospital HospitalStart: 05-17-2025 End: 84-07-5069mndeeciighDmbcxk Berry II Work Phone: [facility] Work Phone: Start: 05-17-2025 End: 38-62-9232Mezucye encounter procedurePatricjaved Dill NEUROPSYCHIATRIC AIDE-[facility] [place] Work Phone: Start: 90-15-4106ivchngyashMQITW N VERHOFFProMedica Eagle HospitalStart: 04-26-2025 End: 82-54-4906Huajmu outpatient visit 25 minutesGabi Omalley PA-C Work Phone: [facility] ClinicComment on above:Thoracic spondylosis without myelopathy (Primary Dx); Lumbar spondylosisStart: 04-26-2025 End: 11-16-4091ahqitkekxuYJGSO N [facility] Centertart: 04-24-2025 End: 82-17-3387PrdhqxTuthrc B Berry MD Work Phone: [facility] CI FM 100Comment on above:Severe back painStart: 04-17-2025 End: 77-07-1036MdyburRlqcjp B Berry MD Work Phone: [facility] CI FMComment on above:AnxietyStart: 04-08-2025 End: 84-54-3142JypkcpBgrhqz B Berry MD Work Phone: [facility] CI FMComment on above:Severe back painStart: 18-36-6921ckkcxztamcYDJJJ N [facility] CENTERFFVan W[facility] Hospital HospitalStart: 03-15-2025 End: 95-99-1425flhrfrqdltUANKS M HEMMERNot AvailableStart: 03-15-2025 End: 62-86-8887Uyknvbiid encounterCarlos Enrique Maguire MD Work Phone: [facility] FMStart: 03-15-2025 End: 82-32-1530qybpqtaltsXEQHR N VERHOFFVan Wert County Hospital HospitalStart: 03-15-2025 End: 07-37-7221Jlkvqq outpatient new 45 minutesMebryce Omalley PA-C Work Phone: [facility] Pain Management ClinicComment on above:Thoracic spondylosis without myelopathy (Primary Dx); Lumbar spondylosisStart: 03-14-2025 End: 93-95-9554Iiyfxiydp encounterCarlos Enrique Maguire MD Work Phone: [facility] CI FMStart: 03-10-2025 End: 70-20-3271lqzdmvedtsGNQCXD M SHIVELYNot AvailableStart: 03-02-2025 [facility] PPGStart: 02-28-2025 End: 01-53-8110Vqqdtx flowsRoberth Morrell NP Work Phone: [facility] FMStart: 02-28-2025 End: 13-59-2104Jnqqpu flowsRoberth Morrell BEAVER TRAPPER Work Phone: [facility] CI FMStart: 02-28-2025 End: 09-09-7490Ktrbtlgli Zora Morrell NP Work Phone: [facility] CI FMStart: 02-28-2025 End: 01-03-1227aioegmecvhVTGUCR M SHIVELYNot AvailableStart: 02-28-2025 End: 77-36-4399Lkbwg of hemosiderin, quantHaley Morrell BEAVER TRAPPER Work Phone: [facility] HealthcareStart: 02-28-2025 End: 01-91-3393Wrzrsiz encounter procedureSmarlene Morrell NP Work Phone: [facility] CI FMComment on above:Chronic [...] Medicare annual wellness visit, subsequentStart: 02-28-2025 End: 28-49-8047ibwapaqvmeIKTXMN M SHIVELYNot AvailableStart: 02-06-2025 End: 24-42-2414Scqwnp Alvaro PATRICIO Work Phone: [facility] FMStart: 02-06-2025 End: 40-42-6845Dekrtw Alvaro PATRICIO Work Phone: [facility] FMStart: 02-06-2025 End: 24-36-8038Xjmssz outpatient visit 15 minutesDorian Corrigan Maria R PA Work Phone: [facility] CI FMComment on above:Nausea and vomiting, unspecified vomiting type (Primary Dx); Chronic idiopathic constipation; Acute bilateral low back pain without sciaticaStart: 02-06-2025 End: 29-49-6443oytsvcwpnsQHLHR M HEMMERNot AvailableStart: 01-26-2025 End: 05-05-3378GlxjwbQignhr B Berry MD Work Phone: [facility] CI FMComment on above:Severe back painStart: 01-06-2025 End: 50-07-6921ApxzrvCygsiq B Berry MD Work Phone: [facility] CI FMComment on above:Severe back painStart: 11-29-2024 End: 22-16-9807Xpbgyk Bubba Morrell BEAVER TRAPPER Work Phone: [facility] CI FMStart: 11-29-2024 End: 21-30-5256Odavuq Bubba Morrell BEAVER TRAPPER Work Phone: [facility] CI FMStart: 11-29-2024 End: 61-71-4910Jkzdra outpatient visit 25 minutesHaley Morrell BEAVER TRAPPER Work Phone: [facility] CI FMComment on above:Severe back pain; AnxietyStart: 11-29-2024 End: 09-32-0873vcfnkufclhZLMOJK M SHIVELYNot AvailableStart: 11-28-2024 End: 46-44-2390Kocoztnzm department patient visitKeenan Private Hospitaltart: 11-09-2024 End: 10-11-2017Avkybm Pedro Kong BEAVER TRAPPER Work Phone: [facility] CI FMStart: 11-09-2024 End: 09-48-9008Kojxxc Pedro Kong BEAVER TRAPPER Work Phone: [facility] FMStart: 11-09-2024 End: 33-70-4039Zqwzgm outpatient visit 25 minutesMichael Kong BEAVER TRAPPER Work Phone: [facility] CI FMComment on above:Anxiety [...] recent episode mixed (CMS/HCC) Start: 11-09-2024 End: 11-31-8738jsvamplqkvUCGEvelio Alaniz AvailableStart: 10-03-2024 End: 54-66-0153Atmembzoo encounterMarsha ROSARIO [facility] UCStart: 09-29-2024 End: 88-93-8376Qhokly Pedro Kong BEAVER TRAPPER Work Phone: [facility] CI FMStart: 09-29-2024 End: 92-79-9253Utiiwqdede Kong BEAVER TRAPPER Work Phone: [facility] CI FMStart: 09-29-2024 End: 07-27-3071Xlojbg outpatient visit 25 minutesMichael Kong BEAVER TRAPPER Work Phone: [facility] CI FMComment on above:Hospital discharge follow- up (Primary Dx); Degenerative disc disease, thoracic; Severe back pain; Muscle spasm; Reactive depression (situational) (CMS/HCC); Situational mixed anxiety and depressive disorder (CMS/HCC); Weight lossStart: 09-29-2024 End: 10-80-5749qvetdxvgzxSNIEvelio Alaniz AvailableStart: 08-04-2023 End: 35-22-1324kmljzykjxdJvhlboik Rohrbacheedgar Other [facility] [employer] Other Start: 68-02-3655Slpkto outpatient new 20 minutes Josephine RothmanPG Urgent Care ClydeStart: 12-05-2019 End: 88-78-3082Ibsvlyl encounter procedureDACORNELIUS MAGUIREFacility:I3Gnxyk: 12-04-2019 End: 91-83-8331Tdescwe encounter procedureDACORNELIUS MAGUIREFacility:N0Kkuxw: 12-17-2018 End: 64-97-5339Nkhyonu encounter procedureDANIELISABETH MAGUIREFacility:H1 Procedures DateProcedureProcedure DetailPerforming ClinicianStart: 67-69-3900Rwtnrrnv blood count with white cell differential, automatedTimtristen Bliss ReliOn DO Work Phone: Start: 36-48-4305Dbqcuhtyjyayc metabolic panelTimtristen Bliss ReliOn DO Work Phone: Start: 53-80-3609Actmb panelTimtristen Bliss ReliOn DO Work Phone: Plan of Treatment DateCare ActivityDetailAuthorStart: 67-79-8931PPgR,Tdap and Td Vaccines (2 - Td or Tdap)DTaP,Tdap and Td Vaccines (2 - Td or Tdap)ProMencompass health rehabilitation hospital of [facility] Famo.us SystemStart: 92-02-3285Yytbqab ScreeningTobacco ScreeningSt. Francis Hospitalca [facility] SystemStart: 73-24-4838Hzyhczu ScreeningTobacco ScreeningSt. Francis Hospitalca Health SystemStart: 03-27-6547Fvtaf BMI ScreeningAdult BMI ScreeningSt. Francis Hospitalca Health SystemStart: 27-40-8691Zqkitwk ScreeningTobacco ScreeningProUpper Valley Medical Centerca Health SystemStart: 58-46-2133Gsoiteq ScreeningTobacco ScreeningProUpper Valley Medical Centerca Health SystemStart: 43-77-9375Dxvaz BMI ScreeningAdult BMI ScreeningSt. Francis Hospitalca Health SystemStart: 61-68-6989Mtyqxoh ScreeningTobacco ScreeningSt. Francis Hospitalca Health SystemStart: 93-06-3449Lsanv BMI ScreeningAdult BMI ScreeningSt. Francis Hospitalca [facility] SystemStart: 05-27-2026Medicare Annual Wellness (AWV)Medicare Annual Wellness (AWV)[facility] HealthcareStart: 10-17-2025 End: 49-29-5104Biesuly encounter guwgcuohf47/13/2026 10:00 AM EST Office Visit [facility] [address] [place] [address] BlaineJean Pierre mclaughlin L, DO [address] [place] [address] NOMFlakito [facility] 230 Start: 09-11-2025 End: 82-75-7434Fnnojfm encounter cymcjocle04/08/2025 9:00 AM EST Office Visit [facility] [address] [place] [address] Olena Taveras MD [address] [place] [address] [facility] AssociatesStart: 09-04-2025 End: 38-35-0316Ltsutgg encounter /01/2025 8:40 AM EST Office Visit [facility]OMFl[facility] [address] [place] [address] BlaineJean Pierre mclaughlin L, DO [address] [place] [address] [facility] 230 Start: 08-23-2025 End: 95-56-7843Xmkrsdb encounter trehvhlmv43/19/2025 10:30 AM EST Office Visit NOMFlakito [facility] [address] [place] [address] Haley Morrell NP [address] [place] [address] HENNY [facility] [place] HospitaleStart: 08-22-2025 End: 27-35-4298Xtvowyd encounter hgaaahmuu23/18/2025 8:00 AM EST Office Visit [facility] [address] [address] Zarina Holt, NEUROPSYCHIATRIC AIDE-VETERINARIAN [address] [place] [address] [facility] ClinicStart: 08-11-2025 End: 31-86-5711Italqvu encounter prkdpwfhy89/07/2025 9:15 AM EST Consult [facility] [address] [facility] [address] [place] [address] Olena Taveras MD [address] [facility] [address] [place] [address] [facility] Surgical AssociatesStart: 08-10-2025 End: 10-49-4218Veulhmq encounter wwkxpayjg81/06/2025 7:15 AM EST Appointment [facility] [address] [place] [address] Gabi Omalley, MARK [address] [place] [address] [facility] MRI ImagingStart: 08-09-2025 End: 41-55-5938Djzxqqflvhel / ancillary services aumfpombil77/05/2025 11:30 AM EST Ancillary Procedure [facility] [address] [place] [address] [facility] ImagingStart: 07-26-2025 End: 94-01-1095VE Abdomen and Pelvis W contrast IVCT abdomen pelvis w IV contrast Imaging Routine Gastroesophageal reflux disease with esophagitis wit hout hemorrhage Gastric pain Nausea and vomiting, unspecified vomiting type Unintentional weight loss Expected: 07/26/2025, Expires: 07/26/2026[facility] Work Phone: Comment on above:Expected: 07/26/2025, Expires: 07/26/2026Start: 07-26-2025 End: 57-51-1812IY Chest W contrast IVCT chest w IV contrast Imaging Routine Smoker Unintentional weight loss Expected: 07/26/2025, Expires: 07/26/2026[facility] HealthcareComment on above:Expected: 07/26/2025, Expires: 07/26/2026Start: 07-26-2025 End: 42-57-1783Jthxcfh encounter bdvnleogi40/22/2025 8:20 AM EDT Office Visit [facility] [address] [place] [address] Jean Pierre Galo, [address] [place] [address] ArrivedNOMaria [facility] 230Comment on above:ArrivedStart: 07-20-2025 End: 88-77-0127Oknwepnuj to same day surgery zbyhen8307/20/2025 11:00 AM EDT - 07/20/2025 11:45 AM EDT Surgery [facility] [address] [place] [address] Gustavo Castro, DO [address] [place] [address] ESOPHAGOGASTRODUODENOSCOPY DIAGNOSTIC [24590 (CPT )][facility] SurgeryComment on above:ESOPHAGOGASTRODUODENOSCOPY DIAGNOSTIC [16227 (CPT )]Start: 07-20-2025 End: 35-84-0459Iwlmobtsrpv flx dx w/collj spec when pfrmdCOLONOSCOPY DIAGNOSTIC / SCREENING unintentional weight loss 07/20/2025 11:00 AM EDTFREMMERCY [facility] Start: 07-20-2025 End: 69-21-5165Sfgcjjsujdpbncikmeygdvwbsc transoral diagnostic ESOPHAGOGASTRODUODENOSCOPY DIAGNOSTIC unintentional weight loss 07/20/2025 11:00 AM EDTFRESNICK [facility] SURGERYStart: 67-90-2263Hysqkcrqot hospital visit by physician [facility] SurgeryStart: 07-19-2025 End: 67-58-3098HU Thoracic spine WO contrastMR thoracic spine without contrast Imaging Routine Thoracic spondylosis without myelopathy Thoracicspine pain Expected: 07/19/2025, Expires: 07/19/2026[facility] Work Phone: Comment on above:Expected: 07/19/2025, Expires: 07/19/2026Start: 07-19-2025 End: 20-82-9241Sjukqsi encounter /15/2025 10:45 AM EDT Office Visit [facility] [address] [place] [address] Gabi Omalley, MARK [address] [place], [place] [address] [facility] ClinicStart: 07-17-2025 End: 77-08-6829Iqzljhgwrv sxtdcbbeibjn40/13/2025 11:59 PM EDT Anesthesia Event [facility] [address] [place] [place] [address] Costa Brooke, DO [address] [place] [address] [facility] Start: 07-13-2025 End: 38-34-8211jxybsjkxpg07/09/2025 1:50 PM EDT Support Visit [facility] Pre Admit [address] [facility] [address] [facility] Pre AdmitStart: 07-11-2025 End: 54-17-1980Ukthlmt encounter vuzydltzs35/07/2025 9:00 AM EDT Office Visit [facility] General Surgery [address] [place], [place] Monica Ortiz, NEUROPSYCHIATRIC AIDE-VETERINARIAN [address] [place] [address] [facility] General SurgeryStart: 06-23-2025 End: 75-83-6039Ppqkrpwon to same day surgery bsyhzp7106/23/2025 10:07 AM EDT - 06/23/2025 10:14 AM EDT Surgery [facility] Pain Procedures [address] [place] [place] [address] Kota Petty MD [address] [place] [place] [address] INJECTION FACET JOINT Bilateral T 3/4, 4/5 [78733 (CPT )][facility] Pain ProceduresComment on above:INJECTION FACET JOINT Bilateral T 3/4, 4/5 [47288 (CPT )]Start: 06-23-2025 End: 23-59-5167Ztm dx/ther agt pvrt facet jt crv/thrc 1 levelINJECTION FACET JOINT Thoracic spondylosis without myelopathy 06/23/2025 10:07 AM EDTFREMONT PAINStart: 38-57-6647Uginlfofji hospital visit by iouwaoyjy47/19/2025 10:07 AM EDT Hospital Encounter [facility] Procedures [address] [place] [address] Kota Petty MD [address] [place] [address] [facility] Pain ProceduresStart: 06-21-2025 End: 86-94-0332Gfhqwuu encounter fifliygdt31/17/2025 11:30 AM EDT Office Visit [facility] [place] [facility] [address] [place] [address] Haley Morrell NP [address] [place] [address] ArrivedNOMS [place] [facility] MedinceComment on above:ArrivedStart: 06-15-2025 End: 65-58-0314Gagrazd encounter ynasizjvv75/11/2025 4:00 PM EDT Office Visit [facility] [place] [facility] [address] [facility] [address] [place] [address] Haley Morrell NP [address] [facility] [address] [place] [address] ArrivedNOMS [place] [facility] MedinceComment on above:ArrivedStart: 06-08-2025 End: 34-69-3723Beouwiz encounter ehbhslifh89/04/2025 7:30 AM EDT Appointment [facility] Cardiovascular [address] [place] [address] [facility] Start: 06-07-2025 End: 08-39-5928Axyhzke encounter procedureProMedica [facility] Pain Management ClinicStart: 50-19-4267GUQEQ-19 Vaccine ( season) COVID-19 Vaccine ()NOMS HealthcareStart: 48-33-3082Sssswfisx vaccinationNOCO HealthcareStart: 05-24-2025 End: 12-44-8207Tqycvwozsnlyws 2D completeEchocardiogram 2D complete Echocardiography Routine Murmur, heart SOB (shortness of breath) Expected: 05/24/2025 (Approximate), Expires: 05/24/2027[facility] Work Phone: Comment on above:Expected: 05/24/2025 (Approximate), Expires: 05/24/2027Start: 05-24-2025 End: 13-12-6561Dzkirge encounter procedureNOCO CI FMStart: 05-19-2025 End: 96-64-0667Ejzpbqikh to same day surgery uvrfzf6305/19/2025 9:45 AM EDT - 05/19/2025 9:52 AM EDT Surgery [facility] Pain P rocedures [address] [place] [address] Kota Petty MD [address] [place], [place] [address] INJECTION FACET JOINT Bilateral T 3/4, 4/5 [23546 (CPT )][facility] - Pain ProceduresComment on above:INJECTION FACET JOINT Bilateral T 3/4, 4/5 [58936 (CPT )]Start: 05-19-2025 End: 46-20-6679Jpd dx/ther agt pvrt facet jt crv/thrc 1 levelINJECTION FACET JOINT Thoracic spondylosis without myelopathy 05/19/2025 9:45 AM EDTFREMONT PAIN Start: 04-76-4929Hflzplzzjb hospital visit by lfuhvpdod62/15/2025 9:45 AM EDT Hospital Encounter [facility] Procedures [address] [place] [address] Kota Petty MD [address] [place] [address] [facility] Pain ProceduresStart: 04-26-2025 End: 02-19-3292Ooneefg encounter /23/2025 8:45 AM EDT Office Visit [facility] [address] [place] [address] Gabi Omalley, MARK [address] [facility] [place] [address] [facility] ClinicStart: 03-15-2025 End: 97-24-2629TK Chest 2 ViewsXR chest 2 views Imaging Routine Rib pain Expected: 03/15/2025, Expires: 03/15/2026[facility] Work Phone: Comment on above:Expected: 03/15/2025, Expires: 03/15/2026Start: 03-15-2025 End: 51-77-3350IP Ribs Views and Chest [facility] Work Phone: Comment on above:Expected: 03/15/2025, Expires: 03/15/2026Start: 02-28-2025 End: 69-46-0261JSY panel - Blood by Automated countCBC Lab Routine Orthostatic hypotension Expected: 02/28/2025 (Approximate), Expires: 02/28/2026N[facility] HealthcareComment on above:Expected: 02/28/2025 (Approximate), Expires: 02/28/2026Start: 02-28-2025 End: 25-91-3171Gpdzaydnk (Vitamin B12) [Mass/volume] in Serum or PlasmaVitamin B12 Lab Routine Vitamin B12 deficiency Expected: 02/28/2025 (Approximate), Expires: 02/28/2026N[facility] HealthcareComment on above:Expected: 02/28/2025 (Approximate), Expires: 02/28/2026Start: 02-28-2025 End: 72-09-4926Rdeawdvuoegbj metabolic 2000 panel - Serum or PlasmaComprehensive metabolic panel Lab Routine Acquired hypothyroidism (CMS/HCC) Orthostatic hypotensionWeight loss Expected: 02/28/2025 (Approximate), Expires: 02/28/2026 [facility] HealthcareComment on above:Expected: 02/28/2025 (Approximate), Expires: 02/28/2026Start: 02-28-2025 End: 46-11-6825DJ Chest for screening WO contrastNOMS HealthcareComment on above:Expected: 02/28/2025 (Approximate), Expires: 02/28/2026Expected: 02/28/2025, Expires: 02/28/2026Start: 02-28-2025 End: 15-77-6955Kgkqs 1996 panel - Serum or PlasmaLipid panel Lab Routine Mixed hyperlipidemia (CMS/HCC) Expected: 02/28/2025 (Approximate), Expires:02/28/2026 N[facility] HealthcareComment on above:Expected: 02/28/2025 (Approximate), Expires: 02/28/2026Start: 02-28-2025 End: 68-48-1050Dsnmpszg specific Ag [Mass/volume] in Serum or PlasmaPSA Lab Routine Screening for prostate cancer Expected: 02/28/2025 (Approximate), Expires: 02/28/2026N[facility] HealthcareComment on above:Expected: 02/28/2025 (Approximate), Expires: 02/28/2026Start: 02-28-2025 End: 35-08-2342SEM W/REFLEX TO FT4TSH W/REFLEX TO FT4 Lab Routine Acquired hypothyroidism (CMS/HCC) Expected: 02/28/2025 (Approximate), Expires: 02/28/2026 [facility] Work Phone: Comment on above:Expected: 02/28/2025 (Approximate), Expires: 02/28/2026Start: 02-28-2025 End: 65-89-0627ED Abdomen Single viewXR ABDOMEN 2 VIEW Imaging Routine Chronic idiopathic constipation Expected: 02/28/2025, Expires: 02/28/2026[facility] Comment on above:Expected: 02/28/2025, Expires: 02/28/2026Start: 02-28-2025 End: 61-91-1066PZ Lumbar spine Views W flexion and W extensionXR lumbar spine 4+ views w flexion extension Imaging Routine Acute bilateral low back pain without sciatica Expected: 02/28/2025, Expires: 02/28/2026N[facility] HealthcareComment on above:Expected: 02/28/2025, Expires: 02/28/2026Start: 02-28-2025 End: 18-21-5999Jetqabp encounter procedureNOMS CI FMComment on above:Arrived Start: 02-08-2025 End: 63-50-7598Etormyy encounter latcjzdkt47/07/2025 1:00 PM EDT Office Visit [facility] [address] [place] [address] Michael Kong, BEAVER TRAPPER [address] [place] [address] [facility] CI FMStart: 02-06-2025 End: 72-39-5939Silpfoo encounter yojcundlg08/05/2025 8:30 AM EDT Office Visit [facility] [address] [place] [address] Dorian Canada PA [address] [place] [address] ArrivedNOMS CI FMComment on above:ArrivedStart: 03-06-2025Medicare Annual Wellness (AWV)Medicare Annual Wellness (AWV)[facility] HealthcareStart: 09-40-3686Xdgzoixop for malignant neoplasm of colonColorectal Cancer ScreeningNOMS HealthcareComment on above:Postponed from 1966 (Patient Refused)Start: 11-29-2024 End: 29-38-1214Avhnisk encounter othnzztvf62/25/2025 11:00 AM EST Office Visit [facility] [address] [place] [address] Haley Morrell NP [address] [place] [address] ArrivedNOMS CI FMComment on above:ArrivedStart: 11-09-2024 End: 17-68-4037Kjavwwb encounter pgbcubskm83/05/2025 2:00 PM EST Office Visit [facility] [address] [place] [address] Michael Kong, BEAVER TRAPPER [address] [place] [address] ArrivedNOMS CI FMComment on above:ArrivedStart: 10-27-2024 End: 29-34-7268Girwhbi encounter sbqtoubeg32/23/2025 1:30 PM EST Office Visit [facility] [address] [place] [address] Michael Kong, BEAVER TRAPPER [address] [place] [address] [facility] CI FMStart: 09-29-2024 End: 68-80-1528Qhewmgn encounter /26/2024 1:00 PM EST Office Visit [facility] [address] [place] [address] Michael Kong, BEAVER TRAPPER [address] [place] [address] ArrivedNOMS CI FMComment on above:ArrivedStart: 97-09-3706Aprcbhrgd vaccinationInfluenza Vaccine (#1)[facility] HealthcareStart: 22-43-4034Fzivgqxzfokqgt of varicella zoster vaccineZoster (Shingles) Vaccine (1 of 2)[facility] SystemStart: 35-56-1220KBlZ,Tdap and Td Vaccines (1 - Tdap)DTaP,Tdap and Td Vaccines (1 - Tdap)[facility] SystemStart: 64-42-7702Dwlephsrj B Vaccines (1 of 3 - 19+ 3-dose series)Hepatitis B Vaccines (1 of 3 - 19+ 3-dose series)[facility] HealthcareStart: 24-82-3367Pswuhdomyzee Vaccine: Pediatrics (0 to 5 Years) and At-Risk Patients (6 to 64 Years) (1 of 2 - PCV)Pneumococcal Vaccine: Pediatrics (0 to 5 Years) and At-Risk Patients (6 to 64 Years) (1 of 2 - PCV)[facility] HealthcareStart: 67-19-3265Nwfgr BMI Follow Up PlanAdult BMI Follow Up PlanPomerene Hospital SystemStart: 67-90-6171Npfrsqxvvz ScreeningDepression ScreeningPomerene Hospital SystemStart: 60-82-0673Dkhacjv ScreeningTobacco ScreeningPomerene Hospital SystemStart: 23-69-5658ZGnA/Tdap/Td Vaccines (1 - Tdap)DTaP/Tdap/Td Vaccines (1 - Tdap)[facility] HealthcareStart: 00-20-9120VKF Vaccines (1 of 1 - Standard series)MMR Vaccines (1 of 1 - Standard series)[facility] HealthcareStart: 29-85-8433Urejxsgdf for malignant neoplasm of colonNOCO HealthcareStart: 07-50-7905Baspqwn CounselingTobacco Counseling [facility] SystemColonoscopy flx dx w/collj spec when pfrmdCOLONOSCOPY DIAGNOSTIC / SCREENING unintentional weight lossFREMONT SURGERY End: 75-19-8235ZYA / ColonoscopyEGD / Colonoscopy GI Routine Weight loss Nausea and vomiting, unspecified vomiting type 1 Occurrences starting 07/11/2025 until 07/11/2026[facility] Work Phone: Comment on above:1 Occurrences starting 07/11/2025 until 07/11/2026Esophagogastroduodenoscopy transoral diagnostic ESOPHAGOGASTRODUODENOSCOPY DIAGNOSTIC unintentional weight lossFRLEE'S [facility] SUR[facility] Immunizations Immunization DateImmunizationNotesCare [id number], seasonal, injectable, preservative freeJean Pierre Torresler DO Work Phone: noSaint [facility] [id number] and diphtheria toxoids, adsorbed, preservative free, for adult use (5 Lf of tetanus toxoid and 2 Lf of diphtheria toxoid)Carlos Enrique Maguire II Work Phone: [facility]09-18-2020influenza, injectable, quadrivalent, preservative freeMichael Kong BEAVER TRAPPER Work Phone: [facility] [id number] virus vaccine, unspecified formulationKisujey Kong BEAVER TRAPPER Work Phone: [facility] [id number], injectable, quadrivalent, contains preservativeKisujey Kong BEAVER TRAPPER Work Phone: [facility] [id number] influenza, intradermal, preservative freeMichael Kong BEAVER TRAPPER Work Phone: noSaint [facility] KirkwoodPphkjsytty12-15-4496oqzcouko influenza, intradermal, preservative freeCoreym Kong BEAVER TRAPPER Work Phone: noSaint [facility] KirkwoodZytoxbxsev57-56-0472isvhiayj influenza, intradermal, preservative freeCoreym Kong BEAVER TRAPPER Work Phone: [facility] Payers DatePayer CategoryPayerPolicy [id number] 2025Medicare O [id number] 2024Medicare (Managed Care) [id number] 2023Self-pay2018Medicaid [id number] 2.840.1.298223.3.57[id number] 2.840.1.374458.3.57[id number] 2.840.1.965642.3.57[id number] 2.840.1.638137.3.57[id number] 2.840.1.640823.3.579.[id number] 2.840.1.554488.3.57[id number] 2.840.1.003824.3.579.[id number] 2.840.1.020604.3.57[id number] 2.840.1.230221.3.579.[id number] 2.0.1.533703.3.57[id number] 2.840.1.581222.3.579.2.[id number] 2.840.1.379753.3.579.2.720446-52-8585Vhjsepj743485931 2..840.1.495003.3.579.2.67[id number] 2.16.840.1.990330.3.57[id number] 2.840.1.211950.3.57[id number] 2.840.1.657038.3.57[id number] 2.840.1.304903.3.57[id number] 2.840.1.254304.3.57[id number] 2.840.1.207714.3.57[id number] 2.840.1.295897.3.579.[id number] 2.840.1.390803.3.57[id number] 2.840.1.035200.3.57[id number] 2.840.1.639239.3.57[id number] 2.840.1.646564.3.579.2.304[id number] 2.840.1.572549.3.579.2.372996-96-8423Fbdjnxo53623386 2.840.1.545209.3.579.2.372026-21-5180Zqdsihy39569735 2.16.840.1.582208.3.579.2.883347-80-7706Dionjqa50852292 2.16.840.1.511142.3.579.2.064374-25-3174Hrczbiy30697578 2.16.840.1.591276.3.579.2.914873-26-1857Ehqrxtr49047772 2.16840.1.705821.3.57[id number] 2.16.840.1.024868.3.579.2.190647-10-3698Tkteexf05139422 2..840.1.580545.3.57[id number] 2.840.1.326504.3.57[id number] 2.840.1.266330.3.579.2.404259-88-3490Rjfssnh4213635 2.840.1.601259.3.579.2.062871-02-3434Nhzcejh5870575 2.840.1.523158.3.579.2.155063-98-6900Pnlozyq7200018 2.840.1.651419.3.579.[id number] 2.840.1.660722.3.579.2.419293-53-6561Gpzalnk7829568 2.840.1.186858.3.579.2.367418-14-5387Jjxbuar3828735 2.840.1.969247.3.579.2.[id number] 2.840.1.816282.3.579.2.1259 [id number] 1960Medicare [id number] 2.16.840.1.759798.3.579.2.531 Social History DateTypeDetailFacilityUnknown if ever smokedOzark [facility] Other Start: 05-11-2024 End: 86-49-9996Zev Assigned At [facility] Other Start: 12-09-2023 End: 38-15-5958Vazzkkc smoking status NHISSmokes tobacco dailyNOMS Healthcare History of tobacco useCigarette SmokerNOMS HealthcareStart: 12-09-2023 End: 61-22-4914Faywzkn use and exposureSmokeless tobacco non-userNOMS Healthcare Start: 05-11-2024 End: 24-99-1326Forlsjmks beverage intakeLifetime non-drinker (finding)[facility] HealthcareStart: 05-11-2024 End: 08-85-4202Gjizyzu of Social functionNOMS HealthcareStart: 39-80-6622Srjnvgf CommentCaffeine intake : chocolateNOMS HealthcareStart: 20-51-0408Vkc assigned at [facility] hospitalNot on fileTIMPANOGOS REGIONAL HOSPITAL HealthcareTobacco smoking status NHISTobacco smoking consumption unknownPomerene Hospital SystemStart: 28-77-5579LhtdmjorqVlsgjes [facility] SystemStart: 29-71-0925GkrFztd (finding)[facility] Start: 63-89-6254Dge Assigned At [facility] Start: 07-11-2025 End: 85-06-9428Ipoguziau beverage intakeEx-drinker (finding)[facility] SystemStart: 10-63-1232Eytjxbg CommentsoberPomerene Hospital System Goals DatePatient GoalDesired Activity/StatePersonal health goal Functional Status IuteEoxtvcehweAvchhqNycppoku78-60-5110Sqtkprq Health Questionnaire 2 item (PHQ- 2) [Reported][facility] CenterTunznjfruq73-28-5000Ewaxfnn Health Questionnaire 2 item (PHQ- 2) [Reported][facility] CenterAjyirnfvcl85-82-1184Ioerlcy Health Questionnaire (PHQ) [Reported][facility] CenterDgvrmhlowf53-50-7281Rmlgivz Health Questionnaire 2 item (PHQ-2) [Reported][facility] CenterGvplljmoso87-24-8730YZK-9 quick depression assessment panel [Reported.PHQ][facility] CenterKdxiavhiff01-15-4675Jkowcuo Health Questionnaire 2 item (PHQ- 2) [Reported][facility] CenterUoojvmevbp65-67-1357UWA-2 quick depression assessment panel [Reported.PHQ][facility] CenterTjugubulha02-49-2715Ynbgeig Health Questionnaire 2 item (PHQ- 2) [Reported][facility] CenterIldjktuhak77-45-1204MEA-3 quick depression assessment panel [Reported.PHQ][facility] CenterBmhowkurlj91-44-9324Kwxlmsx Health Questionnaire 2 item (PHQ- 2) [Reported][facility] CenterYxxlbsjfuw23-33-9939Umhwrhq Health Questionnaire 2 item (PHQ- 2) [Reported][facility] Clinical Notes 08-04-2023 to 08-16-2025 Note Date & AlstOhevDssnzceu70-60-3529 History of Present illness Narrative* Jean Pierre Galo, DO - 08/16/2025 9:20 AM EST Images from the original note were not included. [facility] NATALIA Tanner SUBJECTIVE: HPI: Ole Stephens is a 59 y.o. male who presents with chief complaint of Anxiety Here to follow up in regards to anxiety. Feels his anxiety is worsening and wishes to discuss restarting lorazepam. A few days ago he was getting a hair cut and felt very anxious during this. He feltlike he was sweating and was very agitated and when he went to stand up he passed out, states he woke up quickly but then had to lay on the floor for 15 minutes before he was able to stand up. Prior to this, about a week ago he was at [facility] ER for anxiety and was given lorazepam and this took him right out of the anxiety. Is wanting to restart lorazepam. With the holidays coming up he is really struggling due to past experience with his mother dying around this time. Does see [facility] for mental hea lt and typically goes there every 3-4 months for counseling. I have reviewed and reconciled the history and medication list with the patient today. History of Present Illness The patient presents for evaluation of anxiety, weight gain, and back pain. Anxiety - He seeks lorazepam 0.5 mg for anxiety, as previous medications (BuSpar, Zyprexa, hydroxyzine, olanzapine) were ineffective. - He has been under psychiatric care for 20 years and is currently seeing a counselor. - He was prescribed Zoloft by Latrice Sanford a year ago. - He feels on the verge of a major breakdown and requests medication for his nerves. Weight Gain - He has gained 15 pounds since his last visit. - He is scheduled for a colonoscopy and endoscopy on 08/24/[address] Taveras. - He is unsure of the cause of his weight gain. Back Pain - He has been receiving ineffective back injections. - He was advised against nerve ablation. - He has a pain management appointment on 08/22/2025. Syncopal Episode - Three days ago, he experienced a syncopal episode at a hair salon. - He felt unwell, lost consciousness, and remained on the floor for 10 minutes. - He drove home but has no recollection of the journey. SOCIAL HISTORY History of smoking. MEDICATIONS - Olanzapine: 5 mg, oral, at bedtime - Hydroxyzine: 50 mg, oral, as needed Depression: Not at risk (08/16/2025) PHQ-2 PHQ-2 Score: 2 Recent Concern: Depression - At risk (07/26/2025) PHQ-2 PHQ-2 Score: 6 reports that he has been smoking cigarettes. He has never used smokeless tobacco. He reports current drug use. Drug: Marijuana. He reports that he does not drink alcohol. OBJECTIVE: 02/28/2025 10:11 AM 05/24/2025 10:35 AM 06/15/2025 3:49 PM 06/21/2025 11:32 AM 07/26/2025 8:12 AM 08/11/2025 9:11 AM 08/16/2025 9:21 AM Vitals BMI 16.89 kg/m2 16.69 kg/m2 16.83 kg/m2 16.69 kg/m2 16.57 kg/m2 18.61 kg/m2 18.75 kg/m2 BSA (m2) 1.59 m2 1.58 m2 1.59 m2 1.58 m2 1.57 m2 1.67 m2 1.67 m2 Systolic 112 110 130 122 136 100 124 Diastolic 76 78 68 78 78 60 74 Heart Rate 54 55 84 80 68 76 SpO2 98 % 99 % 96 % 98 % 99 % 99 % Temp 97.5 F 98.8 F Resp 16 17 17 16 Height (in) 5' 9 5' 9 5' 9 5' 9 5' 9 5' 9 5' 9 Weight (lb) 114.4 113 114 113 112.2 126 127 Visit Report Report Report Report Report Report Report Physical Exam Constitutional: General: He is not in acute distress. Appearance: He is not ill-appearing or toxic-appearing. HENT: Head: Normocephalic. Eyes: Conjunctiva/sclera: Conjunctivae normal. Pulmonary: Effort: Pulmonary effort is normal. No respiratory distress. Breath sounds: No stridor. Abdominal: General: Abdomen is flat. Tenderness: There is no abdominal tenderness. Musculoskeletal: General: No swelling or signs of injury. Normal range of motion. Cervical back: Normal range of motion. Skin: General: Skin is warm and dry. Neurological: General: No focal deficit present. Mental Status: He is alert. Mental status is at baseline. Psychiatric: Mood and Affect: Mood normal. Behavior: Behavior normal. Thought Content: Thought content normal. Judgment: Judgment normal. Physical Exam Results Laboratory Studies Inflammatory markers normal. Imaging CT chest: no change, no masses or concerning findings. MRI thoracic spine: mild degenerative changes. Recent Results (from the past 4 weeks) [...] 5 - 40 mg/dL LDL Chol Calc ([facility]) 104 (H) 0 - 99 mg/dL TSH [...] Diagnoses and all orders for this visit: History of drug abuse in remission (CMS-HCC) Anxiety - hydrOXYzine pamoate (Vistaril) 50 MG capsule; Take 1-2 capsules (50-100 mg) by mouth every 6 (six) hours if needed for anxiety Reactive depression (situational) - OLANZapine (ZyPREXA) 10 MG tablet; Take 1 tablet (10 mg) by mouth at bedtime Bipolar disorder, in partial remission, most recent episode mixed (HCC) - OLANZapine (ZyPREXA) 10 MG tablet; Take 1 tablet (10 mg) by mouth at bedtime - OLANZapine (ZyPREXA) 2.5 MG tablet; Take 1 tablet (2.5 mg) by mouth 2 (two) times a day as needed(acute anxiety) Assessment & Plan 1. Anxiety: Chronic. - History of anxiety, previously used lorazepam 1 mg frequently - Prev using 30 tabs lorazepam every 2-3 weeks from prior provider. Discussed rebound anxiety with lorazepam and this is not a good jail solution. Patient was persistent in wanting rx for lorazepam and I explained why this would not be prescribed from this office. Note hx drug abuse, congratulated on years of sobriety. Currentlyon olanzapine 5 mg at bedtime and hydroxyzine 50 mg as needed. Increase olanzapine to 10 mg at bedtime, with an additional 2.5 mg during the day if needed. Take 1-2 tablets of hydroxyzine 50 mg during the day for acute anxiety; if ineffective, take prn dose of olanzapine. Prescribe olanzapine 10 mgtablets and hydroxyzine 50 mg tablets. - Did offer referral to psychiatry, he declines. 2. Weight gain after unintentional weight loss. - Gained 15 pounds since last visit, positive development given previous weight loss concerns. Blood work and inflammatory markers normal. CT chest on 08/09/2025: no changes or concerning findings. Scheduled colonoscopy and EGD on 08/24/2025. CT A/P in ER also unremarkable. 3. Back pain. - History of back pain, MRI thoracic spine showed mild degenerative changes. Receiving pain management injections. Follow-up with pain management on 08/22/2025. Discontinue meloxicam, continue diclofenac. Follow-up - Cancel appointment on 09/04/2025. Follow up in 2 months. Greater than 45 minutes was spent in the care of this patient by the physician on the day of the visit including record review, discussion of symptoms/care plan, documentation, examination, etc. Jean Pierre Galo DO Problem List[1] Medical History[2] [1] Patient Active Problem List Diagnosis Anorexia Anxiety disorder, unspecified Bipolar disorder (HCC) Deficiency of other specified B group vitamins Vitamin B12 deficiency Esophageal reflux Hypothyroidism Mixed hyperlipidemia Seizure (HCC) Dizziness and giddiness Orthostatic hypotension Palpitations Chronic idiopathic constipation External hemorrhoid, bleeding History of drug abuse in remission ([facility]) History of ETOH abuse Persistent depressive disorder Unintentional weight loss Nausea and vomiting Abdominal pain of multiple sites [2] Past Medical History: Diagnosis Date Allergies Anxiety Bipolar disorder (HCC) Chest discomfort Closed head injury 10/2016 Fall Degenerative disease of basal ganglia (HCC) Diaphoresis Dysfunction of eustachian tube Esophageal reflux Gastritis and gastroduodenitis Hyperlipidemia Hypothyroidism Loss of appetite Seizure (HCC) Vitamin B 12 deficiency documented in this encounterEllis Fischel Cancer CenterQaqfldqycf13-61-4103 Telephone encounter Note* Telephone Encounter - Letty Bui - 08/14/2025 8:35 AM EST Patient called in stating that his anxiety has been really flaring up lately and he is wanting to know if Dr. Galo will prescribe him the lorazepam again of the lowest dose. He says that he has taken this before and stated that he was here a few weeks ago and spoke with Dr. Galo about this. Please advise. He uses [facility] in [place]. Please call him to let him know what the decision is either way. [facility] CenterEycpwtrqju22-89-9441 Miscellaneous Notes* Telephone Encounter - Letty Bui - 08/14/2025 8:35 AM EST Patient called in stating that his anxiety has been really flaring up lately and he is wanting to know if Dr. Galo will prescribe him the lorazepam again of the lowest dose. He says that he has taken this before and stated that he was here a few weeks ago and spoke with Dr. Galo about this. Please advise. He uses [facility] in [place]. Please call him to let him know what the decision is either way. documented in this encounterEllis Fischel Cancer CenterDsfyadkqij10-35-3104 History of Present illness Narrative* Olena Salgado MD - 08/11/2025 9:15 AM EST Images from the original note were not included. Ole Stephens 1965 Ole Stephens is a 59 y.o. male presents with chief complaint of Consult (EGD/Colonoscopy- Pt states he has chronic constipation, losing weight, no appetite, vomiting x 7 months.) HPI: Pt is a 59 year old male who presents to the surgery clinic for a colonoscopy and EGD. Pt has neverhad a colonscopy or EGD before. Pt does not have a family hx of cancers. Pt denies taking any bloodthinners. Pt has limited primary care history and saw his PCP a little over 2 weeks ago. Pt endorses 30 pound weight loss over the past 7 months. In addition, pt states he has had concurrent stomach issues and he has been unable to tolerate liquids and solids without nausea and vomiting. Pt states that he vomits 5 minutes after he eats. He describes the emesis as non bloody and non-bilious. Pt also complains of right sided abdominal pain that has been there for 3 years. He describes it as an int ermittent 4/10 non-radiating pain. He states that he has constipation and has a bowel movement every 3-4 day. He describes the bowel movements as loose with no obvious blood In the stools. Pt endorses having had a previous hernia repair over 30 years ago but he states that this time it feels different. Pt also endorses chronic back pain that he has had for many years with associated bilateral lower leg numbness. Pt denies any ulcers, or recent skin changes of the feet. Pt denies any recent falls, traumas, or accidents. Pt also endorses shortness of breath over the past three months with no associated coughs or wheezes. Pt also states that he has trouble urinating and describes it as the urgency to urinate without urinating. He states that this has been going on for 3 months. He denies pain or hematuria.Pt endorses daily marijuana use and a 40 pack year smoking history. Pt denies alcoholor other recreational drug use. CTAP and CT chest from previous hospitals reviewed. No acute processes were found in either. Labs drawn from outside offices insignificant for source of pt's chief complaints. Pt medical hx pertinent for: bipolar disorder, anxiety, depression, hypothyroidism, hyperlipidemia,gastritis, esophageal reflux, and seizures. Pt surgical hx significant for: cholecystectomy, appendectomy, hernia repair SUBJECTIVE: MEDICATIONS: ALLERGIES Current Outpatient Medications Medication Instructions atorvastatin (LIPITOR) 20 mg, Oral, Daily baclofen (LIORESAL) 10 mg, 2 times daily PRN diclofenac (VOLTAREN) 75 mg, Oral, 2 times daily gabapentin (NEURONTIN) 600 mg, 3 times daily hydrOXYzine pamoate (VISTARIL) 50 mg, Oral, Every 6 hours PRN levothyroxine (SYNTHROID, LEVOXYL) 100 mcg, Oral, Daily before breakfast meloxicam (MOBIC) 15 mg, Oral, Every morning OLANZapine (ZYPREXA) 5 mg, Oral, Nightly pantoprazole (PROTONIX) 40 mg, Oral, Daily, Do not crush, chew, or split. sertraline (ZOLOFT) 200 mg, Oral, Nightly sucralfate (CARAFATE) 1 g, Oral, 3 times daily PRN Allergies[1] PAST MEDICAL HISTORY: SOCIAL HISTORY SURGICAL HISTORY: Medical History[2] Social History[3] Surgical History[4] REVIEW OF SYMPTOMS: Review of Systems Constitutional: Positive for appetite change, fatigue and unexpected weight change. Negative for chills and fever. HENT: Negative for congestion, hearing loss, sinus pressure, sore throat, trouble swallowing and voice change. Eyes: Positive for visual disturbance (gradual loss of vision over years). Negative for pain. Breasts: Negative for breast mass. Respiratory: Positive for shortness of breath. Negative for cough, choking, chest tightness, wheezing and stridor. Cardiovascular: Negative. Negative for chest pain, palpitations and leg swelling. Gastrointestinal: Positive for abdominal pain (RLQ intermittent 4/10 pain), constipation, diarrhea,nausea and vomiting. Negative for blood in stool and rectal pain. Genitourinary: Positive for difficulty urinating and urgency. Negative for dysuria and hematuria. Musculoskeletal: Positive for back pain. Negative for joint swelling. Skin: Negative for color change. Neurological: Positive for weakness and numbness (bilateral lower extremity numbness and tinglingfor years). Negative for dizziness, seizures, facial asymmetry, light-headedness and headaches. Hematological: Does not bruise/bleed easily. OBJECTIVE: Visit Vitals BP 100/60 Ht 5' 9 Wt 126 lb BMI 18.61 kg/m Smoking Status Every Day BSA 1.67 m Physical Exam Constitutional: General: He is not in acute distress. Appearance: He is ill-appearing. Eyes: General: No scleral icterus. Cardiovascular: Rate and Rhythm: Normal rate and regular rhythm. Pulses: Normal pulses. Heart sounds: Normal heart sounds. No murmur heard. No friction rub. No gallop. Pulmonary: Effort: Pulmonary effort is normal. No respiratory distress. Breath sounds: Normal breath sounds. No stridor. No wheezing, rhonchi or rales. Chest: Chest wall: No tenderness. Abdominal: General: Abdomen is flat. Bowel sounds are normal. There is no distension. Palpations: Abdomen is soft. There is no mass. Tenderness: There is no abdominal tenderness. There is no guarding or rebound. Hernia: No hernia is present. Skin: General: Skin is warm and dry. Coloration: Skin is pale. Skin is not jaundiced. Neurological: Mental Status: He is alert and oriented to person, place, and time. Mental status is at baseline. Psychiatric: Mood and Affect: Mood normal. Behavior: Behavior normal. Thought Content: Thought content normal. Judgment: Judgment normal. ASSESSMENT AND PLAN: Assessment/Plan Diagnoses and all orders for this visit: Unintentional weight loss Nausea and vomiting, unspecified vomiting type Abdominal pain of multiple sites Chronic constipation Other orders - Ambulatory referral to General Surgery Plan will be to perform esophagogastroduodenoscopy as well as colonoscopy. The procedure, benefits,risks include risks of bleeding, infection, perforation, incomplete colonoscopy were discussed. If the colonoscopy is normal, next screening colonoscopy in 10 years. [1] Allergies Allergen Reactions Penicillins Swelling Other Reaction(s): Unknown localized to the site of injection [2] Past Medical History: Diagnosis Date Allergies Anxiety Bipolar disorder (HCC) Chest discomfort Closed head injury 10/2016 Fall Degenerative disease of basal ganglia (HCC) Diaphoresis Dysfunction of eustachian tube Esophageal reflux Gastritis and gastroduodenitis Hyperlipidemia Hypothyroidism Loss of appetite Seizure (HCC) Vitamin B 12 deficiency [3] Social History Tobacco Use Smoking status: Every Day Current packs/day: 1.00 Types: Cigarettes Smokeless tobacco: Never Vaping Use Vaping status: Never Used Substance Use Topics Alcohol use: Never Comment: Caffeine intake : chocolate Drug use: Yes Types: Marijuana [4] Past Surgical History: Procedure Laterality Date CHOLECYSTECTOMY HERNIA REPAIR 1980 documented in this encounterEllis Fischel Cancer CenterUuevezbqef09-24-6081 Telephone encounter Note* Telephone Encounter - Letty Bui - 08/04/2025 10:19 AM EDT [place] Nurse case management assistant with [facility] called to inform Dr. Galo that they have completed an Annual Health Risk Assessment and there is a care plan that is located at [facility] if he is interested at looking at that care plan. She also wanted to inform Dr. Galo that they offer physician rounds and if he'd like to call and schedule that the ph # to call would be [phone] option 3. [facility] Cancer CenterVzjenfmgmp81-26-2191 Miscellaneous Notes* Telephone Encounter - Letty Bui - 08/04/2025 10:19 AM EDT N[place] Nurse case management assistant with [facility] called to inform Dr. Galo that they have completed an Annual Health Risk Assessment and there is a care plan that is located at [facility] if he is interested at looking at that care plan. She also wanted to inform Dr. Galo that they offer physician rounds and if he'd like to call and schedule that the ph # to call would be [phone] option 3. documented in this [facility]10-24-2025 Telephone encounter Note* Telephone Encounter - Mary Edmonds - 07/28/2025 2:18 PM EDT Pt called stating his insurance told him they need a note from Dr. Galo on why the Pt needs the CT scan for his chest that was sent on 07/26 so the insurance can approve this. [facility] Cancer [id number] Miscellaneous Notes* Telephone Encounter - Mary Edmonds - 07/28/2025 2:18 PM EDT Pt called stating his insurance told him they need a note from Dr. Galo on why the Pt needs the CT scan for his chest that was sent on 07/26 so the insurance can approve this. documented in this encounterEllis Fischel Cancer [id number] Telephone encounter Note* Telephone Encounter - Letty Bui - 07/26/2025 1:07 PM EDT Patient called in stating that he was missing a few medications that he was supposed to be prescribed after today's visit with Dr. Galo. He says that he is missing the magnesium glycinate and also alpha lipoic acid medication. These need to be sent to drug [facility] in [place]. Please advise. [facility] [id number] Miscellaneous Notes* Telephone Encounter - Letty Bui - 07/26/2025 1:07 PM EDT Patient called in stating that he was missing a few medications that he was supposed to be prescribed after today's visit with Dr. Galo. He says that he is missing the magnesium glycinate and also alpha lipoic acid medication. These need to be sent to drug [facility] in [place]. Please advise. documented in this [facility]10-22-2025 History of Present illness Narrative* Jean Pierre Galo, DO - 07/26/2025 8:20 AM EDT Images from the original note were not included. [facility] [facility] [place] SUBJECTIVE: HPI: Ole Stephens is a 59 [...] states he does see pain management at [facility]. I have reviewed and reconciled the [...] % 98 % 99 % Temp 97.3 F 97.5 F Resp 17 16 16 17 17 16 [...] Refills as necessary. Follow-up in 1 month. Jean Pierre Galo DO Problem List[1] Medical History[2] [1] Patient Active Problem List Diagnosis Anorexia Anxiety disorder, unspecified Bipolar disorder (HCC) Deficiency of other specified B group vitamins Vitamin B12 deficiency Esophageal reflux Hypothyroidism Mixed hyperlipidemia Seizure (HCC) Dizziness and giddiness Orthostatic hypotension Palpitations Chronic idiopathic constipation External hemorrhoid, bleeding History of drug abuse in remission ([facility]) History of ETOH abuse Persistent depressive disorder [2] Past Medical History: Diagnosis Date Allergies Anxiety Bipolar disorder (HCC) Chest discomfort Closed head injury 10/2016 Fall Degenerative disease of basal ganglia (HCC) Diaphoresis Dysfunction of eustachian tube Esophageal reflux Gastritis and gastroduodenitis Hyperlipidemia Hypothyroidism Loss of appetite Seizure (HCC) Vitamin B 12 deficiency documented in this [facility]10-20-2025 Telephone encounter Note* Telephone Encounter - Adeola Suarez - 07/24/2025 10:18 AM EDT Pt is calling to fu about npq that was filled out for Dr. Galo last week. He is concerned becausehe has lost a significant amount of weight and would like to get checked out mini. [facility] Cancer [id number] Miscellaneous Notes* Telephone Encounter - Adeola Suarez - 07/24/2025 10:18 AM EDT Pt is calling to fu about npq that was filled out for Dr. Galo last week. He is concerned becausehe has lost a significant amount of weight and would like to get checked out mini. documented in this [facility]10-17-2025 Miscellaneous Notes* Telephone Encounter - Leny Madsen RN - 07/21/2025 3:07 PM EDT Attempted to return patient's call about what he could do and what medications he could take for knee arthritis. No voicemail was set up. documented in this [facility]10-17-2025 Telephone encounter Note* Telephone Encounter - Leny Madsen RN - 07/21/2025 3:07 PM EDT Attempted to return patient's call about what he could do and what medications he could take for knee arthritis. No voicemail was set up. [facility]10-15-2025 History of Present illness Narrative* Gabi Omalley PA-C - 07/19/2025 10:45 AM EDT [facility] [address] [place] [address] Patient: Ole Stephens Sex: male : 1965 [...] Anxiety disorder, unspecified 12/09/2009 Bipolar 2 disorder ([facility]) 12/06/2009 2003 Chronic bilateral thoracic back pain Chronic idiopathic constipation 12/09/2023 Chronic pain disorder Constipation Depressive disorder 12/09/2009 Drug abuse ([facility]) 12/06/2009 denies since 2005 Esophageal reflux 07/01/2023 ETOH abuse 12/06/2009 denies since 2005 External hemorrhoid, bleeding 12/09/2023 History of drug abuse in remission ([facility]) 12/09/2023 Hypothyroidism 07/01/2023 Joint pain Loss of appetite 07/01/2023 Low back pain Mixed hyperlipidemia 07/01/2023 Murmur Muscle spasm Nausea & vomiting Orthostatic hypotension 12/15/2009 Palpitations 12/09/2009 Seizure ([facility]) 07/01/2023 Vitamin B12 deficiency 07/01/2023 Weight loss Past Surgical History: Procedure Laterality Date CHOLECYSTECTOMY HERNIA REPAIR inguinal hernia INJECTION BLOCK NERVE MEDIAL BRANCH Bilat T 3/4, 4/5 Bilateral 06/23/2025 Performed by Kota Petty MD at [facility] INJECTION BLOCK NERVE MEDIAL BRANCH Bilat T 3/4, 4/5 Bilateral 05/19/2025 Performed by Kota Petty MD at [facility] NOSE SURGERY Allergies Allergen Reactions Penicillins [...] making: Anxiety, Depression. OARRS: Reviewed. Scribe Statement: ISteffi RN, scribed for and in the presence of GALA MANN who performed theabove service. Steffi Israel RN 07/19/25 1109 Steffi Israel RN 07/19/25 1207 Gabi Omalley PA-C 07/19/25 1247 documented in this encounterSt. Francis HospitalJennerex Biotherapeutics [id number] Instructions* Patient Instructions* Steffi Israel RN - 07/19/2025 10:45 AM EDT Call our office to notify us of the date MRI is scheduled. You will then be scheduled for a follow up with our office so that the provider can discuss your MRI results and treatment plan. documented in this [facility]10-14-2025 Miscellaneous Notes* Telephone Encounter - [...] ROZINA Blair - 07/18/2025 9:53 AM EDT [facility] Surgery Coordinator @ [facility] was called and patient was removed from the surgery schedule. documented in this [facility]10-14-2025 Telephone encounter Note* Telephone Encounter - Karie Pope - 07/18/2025 9:53 AM EDT Ole called the office and stated he wished to cancel his colonoscopy and egd scheduled for 07/20/[address] Castro. He does not wish to reschedule at this time. I informed patient he will need another consult if he chooses to wait past 30 days to reschedule. [facility]10-14-2025 Telephone encounter Note* Telephone Encounter - ROZINA Blair - 07/18/2025 9:53 AM EDT [facility] Surgery Coordinator @ [facility] was called and patient was removed from the surgery schedule. [facility]10-09-2025 Miscellaneous Notes* Perioperative Nursing Note - Madelyn White RN - 07/13/2025 1:50 PM EDT Preoperative Education Checklist- General Surgery date: 07/20/25 Surgery time: 1100 Arrival time: 0900 1. Bring a photo ID and your insurance card with you the day of surgery. You will check in at the main lobby of the [facility]- registration desk is straight ahead as soon as you walk in. Tell them you are here for surgery. 2. If you have a Living Will/Durable Power of On Site Nurse for Health Care that is not on [...] after you have bathed. 5. NO nail serbian/acrylic on at least one finger. If you are having a hand, wrist or foot surgery then all nail serbian and artificial/acrylic nails must be removed from [...] please call the Preadmission Testing office at [phone], Mon.-Fri. 7 a.m.-3 p.m. Leave a voicemail [...] days prior to procedure documented in this encounterMount Carmel Health System10-09-2025 Nurse Note* Perioperative Nursing Note - Madelyn White RN - 07/13/2025 1:50 PM EDT Preoperative Education Checklist- General Surgery date: 07/20/25 Surgery time: 1100 Arrival time: 0900 1. Bring a photo ID and your insurance card with you the day of surgery. You will check in at the main lobby of the [facility]- registration desk is straight ahead as soon as you walk in. Tell them you are here for surgery. 2. If you have a Living Will/Durable Power of On Site Nurse for Health Care that is not on [...] after you have bathed. 5. NO nail serbian/acrylic on at least one finger. If you are having a hand, wrist or foot surgery then all nail serbian and artificial/acrylic nails must be removed from [...] please call the Preadmission Testing office at [phone], Mon.-Fri. 7 a.m.-3 p.m. Leave a voicemail [...] Stop taking 0 days prior to procedure [facility] [id number] Miscellaneous Notes* Telephone Encounter - Rufina Banks [...] 2:39 PM EDT Done documented in this encounterMount Carmel Health System10-08-2025 Telephone encounter Note* Telephone Encounter - Rufina [...] talking to you and ends call abruptly. [facility]10-08-2025 Telephone encounter Note* Telephone Encounter - Gabi Omalley PA-C - 07/12/2025 2:39 PM EDT Send letter for inappropriate behavior [facility]10-08-2025 Telephone encounter Note* Telephone Encounter - Steffi Israel RN - 07/12/2025 2:39 PM EDT Done [facility]10-07-2025 History of Present illness Narrative* SHERLYN Gomez - 07/11/2025 9:00 AM EDT Images from [...] Anxiety disorder, unspecified 12/09/2009 Bipolar 2 disorder ([facility]) 12/06/2009 2003 Chronic bilateral thoracic back pain Chronic idiopathic constipation 12/09/2023 Chronic pain disorder Constipation Depressive disorder 12/09/2009 Drug abuse ([facility]) 12/06/2009 denies since 2005 Esophageal reflux 07/01/2023 ETOH abuse 12/06/2009 denies since 2005 External hemorrhoid, bleeding 12/09/2023 History of drug abuse in remission ([facility]) 12/09/2023 Hypothyroidism 07/01/2023 Joint pain Loss of appetite 07/01/2023 Low back pain Mixed hyperlipidemia 07/01/2023 Murmur Muscle spasm Nausea & vomiting Orthostatic hypotension 12/15/2009 Palpitations 12/09/2009 Seizure ([facility]) 07/01/2023 Vitamin B12 deficiency 07/01/2023 Weight loss Past Surgical History: Procedure Laterality Date CHOLECYSTECTOMY HERNIA REPAIR inguinal hernia INJECTION BLOCK NERVE MEDIAL BRANCH Bilat T 3/4, 4/5 Bilateral 06/23/2025 Performed by Kota Petty MD at [facility] INJECTION BLOCK NERVE MEDIAL BRANCH Bilat T 3/4, 4/5 Bilateral 05/19/2025 Performed by Kota Petty MD at [facility] NOSE SURGERY Allergies Allergen Reactions Penicillins [...] patient/family/caregiver Referring and communicating with other health restorative care technician Weight loss [R63.4] SHERLYN GOMEZ [facility] General Surgery [place] This note was created with the assistance of a speech recognition program. While intending to generate a timely document that accurately reflects the content of the visit, no guarantee can be provided that every grammatical or spelling mistake has been or will be identified or corrected. Thank you for your understanding. SHERLYN Gomez 07/11/25 1352 documented in this encounterMount Carmel Health System09-23-2025 Miscellaneous Notes* Telephone Encounter - Steffi Israel RN - 06/27/2025 1:36 PM EDT Patient left message requesting Meloxicam refill. Prescription signed 05/23/2025 has 1 refill. Call placed to patient to inform him of this information and to advise him to call his pharmacy. PVU documented in this encounterMount Carmel Health System09-23-2025 Telephone encounter Note* Telephone Encounter - Steffi Israel RN - 06/27/2025 1:36 PM EDT Patient left message requesting Meloxicam refill. Prescription signed 05/23/2025 has 1 refill. Call placed to patient to inform him of this information and to advise him to call his pharmacy. PVU [facility]09-22-2025 Telephone encounter Note* Telephone Encounter - SHENG Carrasco - 06/26/2025 2:25 PM EDT Request was for Xanax, Alprazolam. Pt does not take this medication. OARRS reviewed. Lorazepam sent. [facility] [id number] Miscellaneous Notes* Telephone Encounter - SHENG Carrasco - 06/26/2025 2:25 PM EDT Request was for Xanax, Alprazolam. Pt does not take this medication. OARRS reviewed. Lorazepam sent. documented in this encounterEllis Fischel Cancer [id number] Miscellaneous Notes* Telephone Encounter - Stacie Carranza RN - 06/23/2025 12:37 PM EDT Pt calls with c/o pain at injection site and bilateral shoulder blades are sore. Educated pt that injection site pain is to be expected and for pain control he can use OTC treatments such as NSAIDs, tylenol, topical pain relievers such as creams/gels, patches, heat/ice. PVU documented in this encounterMount Carmel Health System09-19-2025 Telephone encounter Note* Telephone Encounter - Stacie Carranza RN - 06/23/2025 12:37 PM EDT Pt calls with c/o pain at injection site and bilateral shoulder blades are sore. Educated pt that injection site pain is to be expected and for pain control he can use OTC treatments such as NSAIDs, tylenol, topical pain relievers such as creams/gels, patches, heat/ice. PVU [facility]09-17-2025 History of Present illness Narrative* Haley Morrell NP - 06/21/2025 11:30 AM EDT Images from the original note were not included. Subjective Patient ID: Ole Stephens is a 59 y.o. male who presents for No chief complaint on file.. Ole presents today for issues with fluid around his heart. Pain management will not do anythinguntil they speak with a provider. He see's pain management at [facility] in [place]. Pt needs surgical clearance injection. See echo [...] effusion. Pt does not want to pursue electrical maintenance mechanic at this time. WBC 9.0 Hgb 12.8 [...] No follow-ups on file. documented in this encounterEllis Fischel Cancer [id number] Miscellaneous Notes* Telephone Encounter - Steffi Israel RN - 06/16/2025 1:40 PM EDT Patient called office today to report that he was seen by cardiology and placed on new medications.He states he had an echo that showed water around my heart . New medications include 40 mg Prednisone taper, Carafate, Doxycycline (started 2 days ago), and a steroid cream that he has not lease picker yet from the pharmacy. Doxy and [...] patient to obtain the name of patient's electrical maintenance mechanic. He states he does not have a electrical maintenance mechanic. Patient's PCP, Haley Morrell NP, ordered the [...] be made aware that he has no electrical maintenance mechanic and that his PCP was the ordering [...] letter sent to his PCP, Haley Morrell BEAVER TRAPPER. * Telephone Encounter - Stacie Carranza RN [...] Will try again later. documented in this encounterSt. Francis HospitalJennerex Biotherapeutics [id number] Telephone encounter Note* Telephone Encounter - Steffi [...] a steroid cream that he has not lease picker yet from the pharmacy. Doxy and topical is for a skin infection on his chin. Patient is scheduled for Bilateral T 3/4 4/5 MBB 06/23/2025. [facility] [employer] [id number] Telephone encounter Note* Telephone Encounter - Gabi Omalley PA-C - 06/16/2025 1:40 PM EDT We will need cardio clearance prior to procedure [facility] [employer] [id number] Telephone encounter Note* Telephone Encounter - Steffi Israel RN - 06/16/2025 1:40 PM EDT Call placed to patient to obtain the name of patient's electrical maintenance mechanic. He states he does not have a electrical maintenance mechanic. Patient's PCP, Haley Morrell NP, ordered the echo. Patient's upcoming procedure is without sedation. How would you like to proceed? [facility] [employer] [id number] Telephone encounter Note* Telephone Encounter - Steffi Israel RN - 06/16/2025 1:40 PM EDT Patient called office and repeated information noted in previous encounters related to echo results. He states he has to have his injection this week as he is so much pain. Patient is informed that provider will be made aware that he has no electrical maintenance mechanic and that his PCP was the ordering provider. Patient states that if he not able to have his scheduled injection this week he will go to the ED. Jose ended the call. [facility] [employer] [id number] Telephone encounter Note* Telephone Encounter - Steffi [...] a little water around my heart . [facility]09-12-2025 Telephone encounter Note* Telephone Encounter - Gabi Omalley PA-C - 06/16/2025 1:40 PM EDT If PCP will clear him that is sufficient [facility]09-12-2025 Telephone encounter Note* Telephone Encounter - Steffi Israel RN - 06/16/2025 1:40 PM EDT Clearance letter sent to his PCP, Haley Morrell NP. [facility]09-12-2025 Telephone encounter Note* Telephone Encounter - Stacie Carranza RN - 06/16/2025 1:40 PM EDT Resent surgical clearance to haley morrell. They did not send it back. They sent a referral, documentation stating pt requested referral [facility]09-12-2025 Telephone encounter Note* Telephone Encounter - Stacie [...] for Bilateral T 3/4, 4/5 MBB, local. [facility]09-12-2025 Telephone encounter Note* Telephone Encounter - Stacie Carranza RN - 06/16/2025 1:40 PM EDT Clearance received from PCP. Called pt to inform him and that he can proceed with procedure. No answer. Will try again later. [facility]09-11-2025 History of Present illness Narrative* Haley Morrell [...] 10/2016 Fall Degenerative disease of basal ganglia ([facility]) Diaphoresis Dysfunction of eustachian tube Esophageal reflux Gastritis and gastroduodenitis Hyperlipidemia Hypothyroidism Loss of appetite Seizure ([facility]) Vitamin B 12 deficiency Past [...] General Surgery; Future Await EGD Pericardial effusion ([facility]) - predniSONE (Deltasone) 10 MG tablet; [...] No follow-ups on file. documented in this [facility]09-04-2025 Telephone encounter Note* Telephone Encounter - SHENG Carrasco - 06/08/2025 4:52 PM EDT OARRS reviewed, Rx sent into patient's pharmacy. [facility] [id number] Miscellaneous Notes* Telephone Encounter - SHENG Carrasco - 06/08/2025 4:52 PM EDT OARRS reviewed, Rx sent into patient's pharmacy. * Telephone Encounter - Yluy Chan - 06/08/2025 12:58 PM EDT Ole stopped in asking for a refill on LORazepam (Ativan) 1 MG to [facility] in [place] documented in this [facility]09-04-2025 Telephone encounter Note* Telephone Encounter - Yuly Chan - 06/08/2025 12:58 PM EDT Ole stopped in asking for a refill on LORazepam (Ativan) 1 MG to [facility] [place] [facility] Cancer [id number] History of Present illness Narrative* Gabi Omalley PA-C - 06/07/2025 1:00 PM EDT [facility] [address] [place] [address] Patient: Ole Stpehens Sex: male : 1965 Age: 59 y.o. [...] Anxiety disorder, unspecified 12/09/2009 Bipolar 2 disorder ([facility]) 12/06/2009 2003 Chronic bilateral thoracic back pain Chronic idiopathic constipation 12/09/2023 Chronic pain disorder Depressive disorder 12/09/2009 Drug abuse ([facility]) 12/06/2009 denies since 2005 Esophageal reflux 07/01/2023 ETOH abuse 12/06/2009 denies since 2005 External hemorrhoid, bleeding 12/09/2023 History of drug abuse in remission ([facility]) 12/09/2023 Hypothyroidism 07/01/2023 Joint pain Loss of appetite 07/01/2023 Low back pain Mixed hyperlipidemia 07/01/2023 Murmur Muscle spasm Orthostatic hypotension 12/15/2009 Palpitations 12/09/2009 Seizure ([facility]) 07/01/2023 Vitamin B12 deficiency 07/01/2023 Past Surgical History: Procedure Laterality Date INJECTION BLOCK NERVE MEDIAL BRANCH Bilat T 3/4, 4/5 Bilateral 05/19/2025 Performed by Kota Petty MD at [facility] Allergies Allergen Reactions Penicillins Swelling localized [...] Omalley PA-C 06/07/25 1329 documented in this encounterMount Carmel Health System09-03-2025 Instructions* Patient Instructions* Rufina Banks CNA - [...] the nearest emergency room. documented in this encounterSt. Francis HospitalFunky Moves Mclaren [id number] History of Present illness Narrative* Haley Morrell [...] 10/2016 Fall Degenerative disease of basal ganglia ([facility]) Diaphoresis Dysfunction of eustachian tube Esophageal reflux Gastritis and gastroduodenitis Hyperlipidemia Hypothyroidism Loss of appetite Seizure ([facility]) Vitamin B 12 deficiency Past [...] No follow-ups on file. documented in this encounterEllis Fischel Cancer [id number] Miscellaneous Notes* Telephone Encounter - Liss Moralez RN - 05/22/2025 3:56 PM EDT Patient had a bilateral T3/4, 4/5 on 05/19/25, he only received 100% relief x 30 minutes. 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 Advised patient, will send note to provider, but to follow up as scheduled and reminded him to bring his pain diary. PVU [facility]08-18-2025 Telephone encounter Note* Telephone Encounter - Steffi [...] has not tried any other muscle relaxer. [facility]08-18-2025 Telephone encounter Note* Telephone Encounter - Sarah Andrews - 05/22/2025 3:56 PM EDT Pt called in and left a voicemail requesting a different muscle relaxer. He stated that the muscle relaxer he is taking now does nothing but put him to sleep [facility]08-18-2025 Miscellaneous Notes* Telephone Encounter - Liss Moralez RN - 05/22/2025 3:51 PM EDT Last OV: 04/26/2025 Next OV: 06/07/2025 OARRS appropriate: Yes Last UDS: NA Pharmacy: [facility] Gabapentin was new on 04/26/25, patient requested refill of the Gabapentin and Mobic. documented in this encounterMount Carmel Health System08-18-2025 Telephone encounter Note* Telephone Encounter - Liss Moralez RN - 05/22/2025 3:51 PM EDT Last OV: 04/26/2025 Next OV: 06/07/2025 OARRS appropriate: Yes Last UDS: NA Pharmacy: [facility] Gabapentin was new on 04/26/25, patient requested refill of the Gabapentin and Mobic. [facility]08-18-2025 Telephone encounter Note* Telephone Encounter - SHENG Carrasco - 05/22/2025 3:01 PM EDT resent [facility] [id number] Miscellaneous Notes* Telephone Encounter - SHENG Carrasco - 05/22/2025 3:01 PM EDT resent * Telephone Encounter - Yuly Chan - 05/22/2025 11:06 AM EDT Ole called and stated his meds got sent to [facility] but [facility] [place]. He asked that you res[facility] to [facility]. documented in this encounterEllis Fischel Cancer [id number] Telephone encounter Note* Telephone Encounter - Yuly Chan - 05/22/2025 11:06 AM EDT Ole called and stated his meds got sent to [facility] but [facility] [place]. He asked that you res[facility] it to [facility]. [facility] [id number] Telephone encounter Note* Telephone Encounter - SHENG Carrasco - 05/22/2025 10:38 AM EDT OARRS reviewed, Rx sent into patient's pharmacy. [facility] [id number] Miscellaneous Notes* Telephone Encounter - SHENG Carrasco - 05/22/2025 10:38 AM EDT OARRS reviewed, Rx sent into patient's pharmacy. * Telephone Encounter - Abi Diego - 05/22/2025 9:21 AM EDT LORazepam (Ativan) 1 MG tablet And tramadol [facility] * Telephone Encounter - Chante Smith - [...] a lot of pain, call back number [phone]. * Telephone Encounter - Chante Smith - [...] can get lorazepam and tramadol sent to [facility] in [place].States he is in severe pain and it is causing him anxiety. Call back number is [phone] documented in this encounterEllis Fischel Cancer [id number] Telephone encounter Note* Telephone Encounter - Abi Diego - 05/22/2025 9:21 AM EDT LORazepam (Ativan) 1 MG tablet And [facility]ad[facility] [place] [facility] [id number] Telephone encounter Note* Telephone Encounter - Chante [...] and she said they can't be filled. [place] [id number] Telephone encounter Note* Telephone Encounter - Chante Smith - 05/20/2025 1:51 PM EDT Pt called back and asked that the provider call him directly, he is very upset and in a lot of pain, call back number [phone]. [address] [id number] Telephone encounter Note* Telephone Encounter - Chante Smith - 05/20/2025 1:41 PM EDT Per Leatha Arzate: I'm not sure if he has a contract with pain mgt in regard to pain med. 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 I was reading his history in [place] and he has a hx of drug abuse. I do not feel comfortable prescribing opioid medication Pt notified, states he will go to the ER [place] [id number] Telephone encounter Note* Telephone Encounter - Chante Smith - 05/20/2025 12:20 PM EDT Pt is calling because he just had injections with pain management in his back and he states he is in pain. He wants to know if he can get lorazepam and tramadol sent to [facility] in [place].States he is in severe pain and it is causing him anxiety. Call back number is [phone] [id number] Evaluation note* Diagnosis Onset Date Resolution Status Admit Date Impetigo acuteAugust 2024 9:43am [facility] Work Phone: 1(443) 417-195608-13-2025 Evaluation note* Diagnosis Onset Date Resolution Status Admit Date Impetigo acuteAugust 2024 9:43amPuncture wound of left handnoneactiveSeptember 2024 9:02am [facility] Work Phone: 1(706) 864-541508-13-2025 Evaluation note* Diagnosis Onset Date Resolution Status Admit Date Impetigo acuteAugust 2024 9:43amPuncture wound of left handnoneactiveSept2024 9:02amFolliculitisacuteSept2024 10:03amSkin infectionacute Racheal 2024 10:03am [facility] Work Phone: 1(215) 140-266107-23-2025 History of Present illness Narrative* Gabi Omalley PA-C - 04/26/2025 8:45 AM EDT [facility] [address] [place] [address] Patient: Ole Stephens Sex: male : 1965 Age: 59 y.o. PCP: CARLOS ENRIQUE MAGUIRE MD 04/26/2025 Ole Stephens is here for a(n) follow up appointment after starting Mobic 15mg daily whichis providing some relief for his upper back pain. Patient also started Physical Therapy in [place] which provides only very temporary relief before [...] advil ibuprofen w/ no relief; massage therapy makeswsavage,) for the symptoms. The effect of pain on patient's ADLS: Moderate Impairment. Past Medical History: Diagnosis Date Anxiety disorder, unspecified 12/09/2009 Bipolar 2 disorder ([facility]) 12/06/20092002 Chronic bilateral thoracic back pain Chronic idiopathic constipation 12/09/2023 Depressive disorder 12/09/2009 Drug abuse ([facility]) 12/06/2009 denies since 2005 Esophageal reflux 07/01/2023 ETOH abuse 12/06/2009 denies since 2005 External hemorrhoid, bleeding 12/09/2023 History of drug abuse in remission ([facility]) 12/09/2023 Hypothyroidism 07/01/2023 Loss of appetite 07/01/2023 Mixed hyperlipidemia 07/01/2023 Murmur Muscle spasm Orthostatic hypotension 12/15/2009 Palpitations 12/09/2009 Seizure ([facility]) 07/01/2023 Vitamin B12 deficiency 07/01/2023 History reviewed. [...] Omalley PA-C 04/26/25 0922 documented in this encounterSt. Francis HospitalFunky Moves [facility] [id number] Instructions* Patient Instructions* Rufina Banks CNA - [...] the nearest emergency room. documented in this encounterMount [facility]07-[facility]-2025 Telephone encounter Note* Telephone Encounter - SHENG Carrasco - 04/24/2025 1:44 PM EDT OARRS reviewed, Rx sent into patient's pharmacy. [facility] CenterMqvuibbuzc72-06-1751 Miscellaneous Notes* Telephone Encounter - SHENG Carrasco - 04/24/2025 1:44 PM EDT OARRS reviewed, Rx sent into patient's pharmacy. * Telephone Encounter - Jesusita Beck LPN - 04/24/2025 11:25 AM EDT I completed the prior auth on [employer] and it came back that Prior auth not required . Spoke to pt and he is just asking for a refill. * Telephone Encounter - Yuly Chan - 04/24/2025 10:08 AM EDT Ole left a message stating he needed a prior auth done on his Tramadol so he can fill it. documented in this encounterEllis Fischel Cancer CenterDfwcagpmfu96-81-6916 Telephone encounter Note* Telephone Encounter - Jesusita Beck LPN - 04/24/2025 11:25 AM EDT I completed the prior auth on [employer] and it came back that Prior auth not required . Spoke to pt and he is just asking for a refill. [facility] CenterAdjkjobbxf21-21-2711 Telephone encounter Note* Telephone Encounter - Yuly Chan - 04/24/2025 10:08 AM EDT Ole left a message stating he needed a prior auth done on his Tramadol so he can fill it. [facility] [id number] Miscellaneous Notes* Telephone Encounter - SHENG Carrasco [...] a [facility] [place] in [place]. * Telephone Encounter - Abi Diego - 04/17/2025 4:22 PM EDT LORazepam (Ativan) 1 MG tablet [facility] documented in this encounterEllis Fischel Cancer [id number] Telephone encounter Note* Telephone Encounter - SHENG [...] due to our office increasing the dosage. [facility] CenterUikasmryoh01-16-4993 Telephone encounter Note* Telephone Encounter - Yuly Chan - 04/18/2025 9:14 AM EDT Ole left a message stating hisLORazepam (Ativan) 1 MG could not be filled and the pharmacy stated it was waiting approval from the physician. He is asking for a new prescription to be sent to [facility] in [place]. [facility] CenterGbkbejsncn01-85-6568 Telephone encounter Note* Telephone Encounter - Edith Contreras - 04/17/2025 5:06 PM EDT Pt called and he need refill of ativan [place] [id number] Miscellaneous Notes* Telephone Encounter - Edith Contreras - 04/17/2025 5:06 PM EDT Pt called and he need refill of ativan documented in this encounterEllis Fischel Cancer CenterWawmhbvugz75-87-5295 Telephone encounter Note* Telephone Encounter - Abi Diego - 04/17/2025 4:22 PM EDT LORazepam (Ativan) 1 MG tablet [facility] [place] [id number] Telephone encounter Note* Telephone Encounter - SHENG Carrasco - 04/10/2025 8:30 AM EDT OARRS reviewed, Rx sent into patient's pharmacy. [place] [id number] Miscellaneous Notes* Telephone Encounter - SHENG Carrasco - 04/10/2025 8:30 AM EDT OARRS reviewed, Rx sent into patient's pharmacy. documented in this [facility]06-11-2025 Telephone encounter Note* Telephone Encounter - SHENG Carrasco - 03/15/2025 3:12 PM EDT Spoke with patient. He would like imaging specifically of his ribs to make sure he did not break a rib. Rib series with chest PA x-ray order sent to [facility]. [facility] [id number] Miscellaneous Notes* Telephone Encounter - SHENG Carrasco - 03/15/2025 3:12 PM EDT Spoke with patient. He would like imaging specifically of his ribs to make sure he did not break a rib. Rib series with chest PA x-ray order sent to [facility] Imaging. * Telephone Encounter - Abi [...] view of his ribs. documented in this [facility]06-11-2025 Telephone encounter Note* Telephone Encounter - Abi [...] for another view of his ribs. [facility] [id number] History of Present illness Narrative* Gabi Omalley PA-C - 03/15/2025 12:00 PM EDT [facility] [address] [place] [address] Patient: Ole Stephens Sex: male : 1965 [...] Anxiety disorder, unspecified 12/09/2009 Bipolar 2 disorder ([facility]) 12/06/20092002 Chronic bilateral thoracic back pain Chronic idiopathic constipation 12/09/2023 Depressive disorder 12/09/2009 Drug abuse ([facility]) 12/06/2009 denies since 2005 Esophageal reflux 07/01/2023 ETOH abuse 12/06/2009 denies since 2005 External hemorrhoid, bleeding 12/09/2023 History of drug abuse in remission ([facility]) 12/09/2023 Hypothyroidism 07/01/2023 Loss of appetite 07/01/2023 Mixed hyperlipidemia 07/01/2023 Muscle spasm Orthostatic hypotension 12/15/2009 Palpitations 12/09/2009 Seizure ([facility]) 07/01/2023 Vitamin B12 deficiency 07/01/2023 History reviewed. [...] Omalley PA-C 03/15/25 1359 documented in this encounterMount Carmel Health System06-10-2025 Telephone encounter Note* Telephone Encounter - MORRIS VEGA - 03/14/2025 2:13 PM EDT Spoke with patient and he would like an x-ray done of his ribs due to back pain. He states his ribshurt all over when he coughs. He is to have back surgery and also see pain management on 03-15-25. Please avise [facility] [id number] Miscellaneous Notes* Telephone Encounter - MORRIS VEGA [...] they are very painful. documented in this encounterEllis Fischel Cancer [id number] Telephone encounter Note* Telephone Encounter - Abi Diego - 03/14/2025 11:04 AM EDT Patient wants to know if he can get an xray on his ribs he said that they are very painful. [facility] CenterSctvewhuva83-39-3869 Telephone encounter Note* Telephone Encounter - Haley Morrell NP - 02/28/2025 12:06 PM EDT Pt needs his Tramadol and Ativan sent in. Both of these are an increase since last visit. I referred him to pain management for his back pain Ativan 1mg TID prn Tramadol 100mg every 6 hours as needed [facility] CenterGxeoherofc25-03-2778 Miscellaneous Notes* Telephone Encounter - Haley Morrell NP - 02/28/2025 12:06 PM EDT Pt needs his Tramadol and Ativan sent in. Both of these are an increase since last visit. I referred him to pain management for his back pain Ativan 1mg TID prn Tramadol 100mg every 6 hours as needed documented in this encounterEllis Fischel Cancer CenterPjziyvkwcg71-55-0790 History of Present illness Narrative* Haley Morrell [...] Yes Cognitive Screening Three Word Registration: Banana, [place], Chair Clock Drawing: Inability or Refusal to Draw Clock - 0 Three Word Recall: All 3 words correct - 3 Total Score (0-5 Points): 3 Pain Assessment Pain Score: 8 Advance Care Planning Do you have a living will?: Yes Do you have a medical power of bomb loader?: Yes Objective : BP 112/76 Pulse 54 [...] at this time. 17. Persistent depressive disorder (CMS/[facility]) Medication as directed. Verbalizes understanding [...] depression. 18. Routine general medical examination at [facility] Reviewed all relevant preventative screenings [...] on February 28, 2025 documented in this encounterEllis Fischel Cancer [id number] History of Present illness Narrative* SHENG Carrasco [...] for Appointment As Scheduled. documented in this encounterEllis Fischel Cancer CenterGlmqqyhxes16-37-4983 Telephone encounter Note* Telephone Encounter - Abi Diego - 01/26/2025 11:18 AM EDT traMADol (Ultram) 50 MG tablet [facility] CenterRuyaqzfcyj52-86-2313 Miscellaneous Notes* Telephone Encounter - Abi Diego - 01/26/2025 11:18 AM EDT traMADol (Ultram) 50 MG tablet [facility] documented in this encounterEllis Fischel Cancer CenterAlojssuobi50-07-7826 History of Present illness Narrative* MORRIS VEGA [...] understanding of treatment plan. documented in this encounterEllis Fischel Cancer CenterRtbqkpulvf07-67-8687 History of Present illness Narrative* Michael Kong [...] No follow-ups on file. documented in this encounterEllis Fischel Cancer CenterGkjxlkhjtg22-76-7480 Instructions* Patient Instructions* Michael Kong NP - 11/09/2024 2:00 PM EST Refills sent today. documented in this [facility]01-10-2025 Telephone encounter Note* Telephone Encounter - Michael Kong NP - 10/14/2024 11:35 AM EST Please call the pt and notify that orthopedics recommended pain management. If he is ok with going to pain management please send the referral. [facility] CenterHmtaihawqn73-53-2391 Miscellaneous Notes* Telephone Encounter - Michael Kong [...] pain management per ortho documented in this [facility]12-30-2024 Telephone encounter Note* Telephone Encounter - Marsha Schofield MA - 10/03/2024 9:27 AM EST Ortho office states they are denying the referral please refer to [facility] per ortho [facility] CenterPdhzjinhxm33-54-0603 History of Present illness Narrative* Michael Kong [...] day pt is having microwave dinners like [employer] stated No problems with going to the [...] No follow-ups on file. documented in this [facility]12-26-2024 Instructions* Patient Instructions* Michael Kong NP - 09/29/2024 1:00 PM EST Norflex continues. Voltaren continues. Wellbutrin xl is started. Alprazolam is started x 10 days only. documented in this [facility]10-31-2023 Evaluation note* Encounter Date Diagnosis Assessment Notes [...] area. Pt understood agreed to treatment plan. [employer] Other Evaluation note* Diagnosis Hospital discharge follow-up- [...] disorder, current episode hypomanic (CMS/HCC) Unspecified convulsions ([facility]/HCC) Bipolar disorder, in partial remission, most recent episode depressed ([facility]/HCC) Other psychoactive substance abuse, in remission ([facility]) Bipolar disorder, unspecified ([facility]/HCC) Bipolar disorder, unspecified Bipolar disorder, in partial remission, most recent episode mixed ([facility]/HCC) documented in this encounter [facility] HealthcareEvaluation note* [...] [facility]Evaluation noteNo assessment information available [facility] Work Phone: Evaluation note* Diagnosis Anxiety Anxiety [...] vomiting type Dysphagia, unspecified type Pericardial effusion ([facility]-HCC) Unspecified disease of pericardium Skin infection Unspecified [...] cannabis abuse, unspecified documented in this encounter [facility]Evaluation [facility]* Diagnosis Thoracic spine pain- Primary Pain in thoracic spine Thoracic spondylosis without myelopathy Lumbar spondylosis Lumbosacral spondylosis without myelopathy documented in this encounter [facility]* Diagnosis Wellness examination- Primary Screening for colon [...] to unspecified cause documented in this encounter [facility] HealthcareEvaluation [facility]* Diagnosis Unintentional weight loss- Primary Loss of weight Nausea and vomiting, unspecified vomiting type Abdominal pain of multiple sites Chronic constipation Unspecified constipation documented in this encounter [facility]Evaluation [facility]* Diagnosis History of drug abuse in remission ([facility]-HCC)- Primary Anxiety Anxiety state, unspecified Reactive depression (situational) Dysthymic disorder Bipolar disorder, in partial remission, most recent episode mixed (HCC) documented in this encounter [facility] HealthcareInstructionsNot on filedocumented in this encounterProMedica Health SystemInstructionsNot on filedocumented in this encounterProMedica Health SystemInstructionsNot on filedocumented in this encounterProMedica Health SystemInstructionsNot on filedocumented in this encounterProMedica Health System InstructionsNot on filedocumented in this encounterProMedica Health System InstructionsNot on filedocumented in this encounterProUniversity Hospitals [facility] System InstructionsNot on filedocumented in this encounterPomerene Hospital SystemReason for referral (narrative)No reason for referral information availableChildren'S Hospital For [facility] Work Phone: Summary Purpose Family History No [...] 43am Puncture wound of left hand June 2n d2024 9:02am Chief Complaint Admit Date Rash on Chin May 17, 2025 9: 43am wants tetanus, puncture on hand Septembe r 2024 9:02am infection on chin June 13, 2025 10:03am Sore on chin possible infected acne Sept 2024 11:05am Reason for Visit Admit Date Impetigo May 17, 2025 9: 43am Puncture wound of left hand June 2n d2024 9:02am Folliculitis June 13, 2025 10:03am Skin infection June 13, 2025 10:03am Additional Source Comments (unrecognized sect ion and content) No Status Records FoundNo Status Records FoundNo Status Records FoundNo Status Records FoundNo Status Records FoundNo Status Records FoundNo Status Records Found INFORMATION SOURCE (unrecogn ized section and content) DATE CREATED AUTHOR 12/07/2019 [facility] DATE CREATED AUTHOR AUTHOR'S ORGANIZ ATION 03/04/2025 [facility] DATE CREATED AUTHOR AUTHOR'S ORGANIZ ATION 07/13/2025 [facility] DATE CREATED AUTHOR AUTHOR'S ORGANIZ ATION 07/24/2025 [facility] DATE CREATED AUTHOR AUTHOR'S ORGANIZ ATION 08/11/2025 [facility] DATE CREATED AUTHOR AUTHOR'S ORGANIZ ATION 08/12/2025 [facility] DATE CREATED AUTHOR AUTHOR'S ORGANIZ ATION 08/17/2025 [facility] EPIC REASON FOR VISIT (unrecogniz ed section and content) ReasonCommentsBack PainReasonCommentsMed RefillReasonOnset DateCommentsMed Wmciga4401/26/2025ReasonCommentsConstipationStates this has been going on forever and [...] and also diclofenac and tramadol. ReasonOnset DateCommentsMed Imaliy3504/17/2025ReasonOnset DateCommentsMed Refill 05/22/2025ReasonOnset DateCommentsMed Qpefsk0606/26/2025ReasonCommentsWeight Loss Weight loss, gastric pain, nausea, vomiting, dysphagia, constipation, referred by Haley Morrell CNPSpecialtyDiagnoses / ProceduresReferred By ContactReferred To ContactGeneral Surgery Diagnoses Weight loss Gastric pain Nausea and vomiting, unspecified vomiting type Dysphagia, unspecified type Procedures [place] OFFICE OUTPATIENT VISIT 60-74 MINS HIGH [facility] [id number] (SNOMED CT) - AMB REFERRAL TO GENERAL SURGERY Haley Morrell, NEUROPSYCHIATRIC AIDE-VETERINARIAN [address] [facility] [address] [place] [address] Phone: tel: fax: Gustavo Castro DO [address] [place] [address] Phone: tel: fax: Referral IDStatusReasonStart DateExpiration DateVisits RequestedVisits [id number]/11/20253/[id number] DateCommentsAppointment Ozjogbu9707/24/2025ReasonOnset DateCommentsMed Uosujl2407/26/2025ReasonComments Establish CareReasonOnset XwzwRulsoavwZhpeesue56/24/2025ReasonCommentsConsult EGD/Colonoscopy- Pt states he has chronic constipation, losing weight, no appetite, vomiting x 7 months.SpecialtyDiagnoses / ProceduresReferred By Contact Referred To ContactGeneral Surgery Diagnoses Screening for colon cancer Unintentional weight loss Procedures [place] OFFICE/OUTPATIENT NEW HIGH MDM 60 MINUTES Jean Pierre Galo, DO [address] [place] [address] Phone: tel: fax: Jarod Wall, DO [address] [place] [address] Phone: tel: fax: Referral IDStatusReasonStart DateExpiration DateVisits RequestedVisits [id number] Specialty Services Required /[id number] Care Teams (unrecognized sec tion and content) Team MemberRelationshipSpecialtyStart DateEnd Date Carlos Enrique Maguire MD [address] [facility] [address] [place] [address] PCP - [facility]02/26/23 Carlos Enrique Maguire MD [address] [facility] [address] [place] [address] PCP - GeneralInternal Medicine02/10/23Team MemberRelationshipSpecialtyStart Date End Date Carlos Enrique Maguire MD [address] [facility] [address] [place] [address] PCP - [facility]02/26/23 Carlos Enrique Maguire MD [address] [place] [address] PCP - [facility]02/10/23Te MemberRelationshipSpecialtyStart Date End Date Carlos Enrique Maguire MD [address] [place] [address] PCP - [facility]02/26/23 Carlos Enrique Maguire MD [address] [place] [address] PCP - [facility]02/10/23Te MemberRelationshipSpecialtyStart Date End Date Carlos Enrique Maguire MD [address] [place] [address] [facility] - [facility]02/26/23 Carlos Enrique Maguire MD [address] [place] [address] PCP - [facility]02/10/23Te MemberRelationshipSpecialtyStart Date End Date Carlos Enrique Maguire MD [address] [place] [address] PCP - [facility]02/26/23 Carlos Enrique Maguire MD [address] [place] [address] PCP - [facility]02/10/23Te MemberRelationshipSpecialtyStart Date End Date Carlos Enrique Maguire MD [address] [place] [address] PCP - [facility]02/10/23 Carlos Enrique Maguire MD [address] [place] [address] PCP - [facility]11/18/24Team MemberRelationshipSpecialtyStart DateEnd Date Carlos Enrique Maguire MD [address] [place] [address] PCP - GeneralInternal Medicine02/10/23 Carlos Enrique Maguire MD [address] [place] [address] PCP - [facility]11/18/24Team MemberRelationshipSpecialtyStart DateEnd Date Carlos Enrique Maguire MD [address] [place] [address] PCP - GeneralInternal Medicine02/10/23Team MemberRelationshipSpecialtyStart Date End Date Carlos Enrique Maguire MD [address] [place] [address] PCP - GeneralInternal Medicine02/10/23Team MemberRelationshipSpecialtyStart Date End Date Carlos Enrique Maguire MD [address] [place] [address] PCP - GeneralInternal Medicine02/10/23Team MemberRelationshipSpecialtyStart Date End Date Carlos Enrique Maguire MD [address] [place] [address] PCP - GeneralInternal Medicine02/10/23Team MemberRelationshipSpecialtyStart Date End Date Carlos Enrique Maguire MD [address] [place] [address] PCP - GeneralInternal Medicine02/10/23Team MemberRelationshipSpecialtyStart Date End Date Carlos Enrique Maguire MD [address] [place] [address] PCP - GeneralInternal Medicine02/10/23Team MemberRelationshipSpecialtyStart Date End Date Carlos Enrique Maguire MD [address] [place] [address] PCP - GeneralInternal Medicine02/10/23am MemberRelationshipSpecialtyStart Date End Date Carlos Enrique Maguire MD [address] [place] [address] PCP - GeneralInternal Medicine02/10/23Team MemberRelationshipSpecialtyStart Date End Date Carlos Enrique Maguire MD [address] [place] [address] PCP - GeneralInternal Medicine03/15/25Team MemberRelationshipSpecialtyStart Date End Date Carlos Enrique Maguire MD [address] [place] [address] PCP - GeneralInternal Medicine02/10/23Team MemberRelationshipSpecialtyStart Date End Date Carlos Enrique Maguire MD [address] [place] [address] PCP - GeneralInternal Medicine03/15/25 Team Status: Active Member Role Status Dates Carlos Enrique Maguire II MD Primary Care Provider Active Team Status: Inactive Member Role Status Dates Carlos Enrique Maguire II MD Primary Care Provider Active Start: May 17, 2025 End: May 17, 2025Rebeca Dill APRN [employer]-Melvintenneymar Provider ActiveStart: May 17, 2025 End: May 17, 2025Team MemberRelationshipSpecialtyStart DateEnd Date Carlos Enrique Maguire MD [address] [place] [address] PCP - GeneralInternal Medicine02/10/23Team MemberRelationshipSpecialtyStart Date End Date Carlos Enrique Maguire MD [address] [place] [address] PCP - GeneralInternal Medicine02/10/23Team MemberRelationshipSpecialtyStart Date End Date Carlos Enrique Maguire MD [address] [place] [address] PCP - GeneralInternal Medicine03/15/25Team MemberRelationshipSpecialtyStart Date End Date Carlos Enrique Maguire MD [address] [place] [address] PCP - GeneralInternal Medicine03/15/25Team MemberRelationshipSpecialtyStart Date End Date Carlos Enrique Maguire MD [address] [place] [address] PCP - GeneralInternal Medicine02/10/23Team MemberRelationshipSpecialtyStart Date End Date Carlos Enrique Maguire MD [address] [place] [address] PCP - GeneralInternal Medicine02/10/23 Team Status: Inactive Member Role Status Dates Carlos Enrique Maguire II MD Primary Care Provider Active Start: June 06, 2025 End: June 06Blaise Beaver ProviderActiveStart: June 06, 2025 End: June 06, 2025Team MemberRelationshipSpecialtyStart DateEnd Date Carlos Enrique Maguire MD [address] [place] [address] PCP - GeneralInternal Medicine02/10/23 Team Status: Inactive Member Role Status Dates Carlos Enrique Maguire II MD Primary Care Provider Active Start: June 13, 2025 End: June 13mandyesica Bhatti , APRNAtchanirothman [facility] ProviderActiveStart: June 13, 2025 End: June 13, 2025Team MemberRelationshipSpecialtyStart DateEnd Date Carlos Enrique Maguire MD [address] [place] [address] PCP - GeneralInternal Medicine02/10/23Team MemberRelationshipSpecialtyStart Date End Date Carlos Enrique Maguire MD [address] [place] [address] PCP - GeneralInternal Medicine02/10/23Team MemberRelationshipSpecialtyStart Date End Date Carlos Enrique Maguire MD [address] [place] [address] PCP - GeneralInternal Medicine03/15/25Team MemberRelationshipSpecialtyStart Date End Date Carlos Enrique Magurie MD [address] [place] [address] PCP - GeneralInternal Medicine06/26/25Team MemberRelationshipSpecialtyStart Date End Date Carlos Enrique Maguire MD [address] [place] [address] PCP - GeneralInternal Medicine03/15/25 Team Status: Inactive Member Role Status Dates Carlos Enrique Maguire II MD Primary Care Provider Active Start: June 30, 2025 End: June 30, 2025Blaise Mora ProviderActiveStart: June 30, 2025 End: June 30, 2025Team MemberRelationshipSpecialtyStart DateEnd Date Carlos Enrique Maguire MD [address] [place] [address] [facility] - [facility]/15/25Team MemberRelationshipSpecialtyStart Date End Date Alexander Lopez MD [address] [place] [address] PCP - Generalmily Prxlysbd35/5/25Team MemberRelationshipSpecialtyStart DateEnd Date Alexander Lopez MD [address] [place] [address] PCP - Generalmily Jvxpuqch55/5/25Team MemberRelationshipSpecialtyStart DateEnd Date Alexander Lopez MD [address] [place] [address] PCP - Generalmily Djrauhfu60/5/25Team MemberRelationshipSpecialtyStart DateEnd Date Alexander Lopez MD [address] [place] [address] PCP - Generalmily Ibleflbd63/5/25Team MemberRelationshipSpecialtyStart DateEnd Date Alexander Lopez MD [address] [place] [address] PCP - GeneralFamily Jpuxuarh48/5/25am MemberRelationshipSpecialtyStart DateEnd Date Unallocated, Noms MD [facility] [address] [place] [address] PCP - GeneralFamily Medicine06/27/25am MemberRelationshipSpecialtyStart DateEnd Date Alexander Lopez MD [address] [place] [address] [facility] Mgmckppf43/5/25 MemberRelationshipSpecialtyStart DateEnd Date Jean Pierre Galo, DO [address] [place] [address] [facility] Frowtrfz58/21/25am MemberRelationshipSpecialtyStart Date End Date Jean Pierre Galo, DO [address] [place] [address] [facility] Zyowvsvf59/21/25am MemberRelationshipSpecialtyStart Date End Date Jean Pierre Galo, DO [address] [place] [address] PCP - Generalmily Riqcgxlr67/21/25Team MemberRelationshipSpecialtyStart Date End Date Jean Pierre Galo, DO [address] [place] [address] [facility] Cjjubqga61/21/25Team MemberRelationshipSpecialtyStart Date End Date Jean Pierre Gaol, DO [address] [place] [address] PCP - Generalmily Bhggwjoa57/21/25 Carlos Enrique Maguire MD [address] [facility] [address] [place] [address] PCP - [place]05/05/25Te MemberRelationshipSpecialtyStart DateEnd Date Jean Pierre Galo, [address] [place] [address] PCP - [facility]07/25/25 Carlos Enrique Maguire MD [address] [facility] [address] [place] [address] PCP - [place]05/05/25Te MemberRelationshipSpecialtyStart DateEnd Date Jean Pierre Galo DO [address] [place] [address] PCP - [facility]07/25/25 Carlos Enrique Maguire MD [address] [facility] [address] [place] [address] PCP - [place]05/05/25Te MemberRelationshipSpecialtyStart DateEnd Date Jean Pierre Galo, DO [address] [place] [address] PCP - [facility]07/25/25 Alexander Lopez MD [address] [place] [address] PCP - [place]07/05/25Te MemberRelationshipSpecialtyStart DateEnd Date Jean Pierre Galo DO [address] [place] [address] PCP - GeneralFancly Uapucymx99/21/25 Alexander Lopez MD [address] [place] [address] PCP - [place]07/05/25 Goals (unrecognized section and content) Goals may [...] BE BASED ON THE PRIMARY CLINICAL RECORDS. [facility]. provides no warranty or guarantee of the accuracy or completeness of information in this document.
--- NOTE | 2025-09-12 13:26 | ED.ANXIETY1 ---
HPI - Anxiety General Chief Complaint: Anxiety Stated Complaint: ANXIETY Time Seen by Provider: 09/12/25 12:44 Source: patient Mode of arrival: walk-in Limitations: no limitations History of Present Illness HPI narrative: Patient presents to the ER with no acute complaint he has been having anxiety for a long time but he is supposed to see his primary care tomorrow for further evaluation his anxiety and he has never been seen by psych Patient complaining of bilateral numbness and tingling with [id number] in his foot going up to his knee which also is not a new finding has been going on at least for few weeks and he follow-up with pain management for that Related Data Home Medications ?Medication ?Instructions ?Recorded ?Confirmed sertraline 100 mg tablet 200 mg PO DAILY 11/27/23 09/12/25 atorvastatin 20 mg tablet 20 mg PO DAILY 09/24/24 09/12/25 levothyroxine 100 mcg tablet 100 mcg PO QDAY 09/10/25 09/12/25 pantoprazole 40 mg tablet,delayed 40 mg PO QDAY 09/10/25 09/12/25 release Previous Rx's ?Medication ?Instructions ?Recorded lorazepam 0.5 mg tablet (Ativan) 0.5 mg PO DAILY PRN anxiety #3 tabs 09/12/25 meloxicam 15 mg tablet 15 mg PO DAILY PRN pain #10 tabs 09/12/25 Allergies Allergy/AdvReac Type Severity Reaction Status Date / Time Penicillins Allergy Mild swelling Verified 09/12/25 12:39 Review of Systems ROS Status of ROS 10 or more systems reviewed and unremarkable except as noted in history and below PFSH PFS Social History Smoking status: Current every day smoker Little interest or pleasure in doing things: not at all Feeling down, depressed, or hopeless: not at all Exam Narrative Exam Narrative: Nurses notes and vital signs reviewed and patient is not hypoxic. General: Well-appearing and in no apparent distress. Skin: Warm, dry, no pallor noted. But appears malnourished Head: Normocephalic, atraumatic. Neck: Supple, non-tender. Eye: Pupils are equal, round and EOMI. No scleral icterus. Ears, Nose, Mouth, and Throat: TM are clear, no nasal mucosal hypertrophy. Oral mucosa is moist, no posterior oropharynx erythema, uvula is mid-line Cardiovascular: Regular Rate and Rhythm without murmur, gallop or rub. Respiratory: No accessory muscle use or respiratory distress. Lungs are clear to auscultation, no wheezing, rales or rhonchi Chest Wall: no tenderness Back: No midline thoracic or lumbar vertebral tenderness. No CVA tenderness Musculoskeletal: normal ROM, no calf or popliteal tenderness, no lower extremity edema/swelling ,patient seem to be malnourished and cachectic GI: Abdomen is soft, non-distended. Normal bowel sounds. No masses appreciated. No tenderness to palpation. No rebound, guarding, or rigidity noted. Neurological: A&O x4. No cranial nerve dysfunction observed. No truncal ataxia. Moves all extremities. Sensation intact. Psychiatric: Cooperative and interactive. Normal mood and affect. Constitutional Vital Signs, click to edit/add: Last Vital Signs Temp 98.1 F 09/12/25 12:40 Pulse 78 09/12/25 13:45 Resp 16 09/12/25 13:45 BP 150/88 H 09/12/25 13:45 Pulse Ox 97 09/12/25 13:45 O2 Del Method Room Air 09/12/25 13:45 Course Vital Signs Vital signs: Vital Signs Temperature 98.1 F 09/12/25 12:40 Pulse Rate 71 09/12/25 12:40 Respiratory Rate 20 09/12/25 12:40 Blood Pressure 165/107 H 09/12/25 12:40 Pulse Oximetry 99 09/12/25 12:40 Oxygen Delivery Method Room Air 09/12/25 12:40 Temperature 98.1 F 09/12/25 12:40 Pulse Rate 78 09/12/25 13:45 Respiratory Rate 16 09/12/25 13:45 Blood Pressure 150/88 H 09/12/25 13:45 Pulse Oximetry 97 09/12/25 13:45 Oxygen Delivery Method Room Air 09/12/25 13:45 MDM - Anxiety MDM Narrative Medical decision making narrative: The patient presenting with no alarming symptoms ,he does have a history of anxiety and he is not suicidal or homicidal he was provided with Ativan for the next 3 days to be taken daily urine for anxiety And he will see his primary care tomorrow and schedule outpatient with the resources provided to him The patient bilateral lower extremity numbness and tingling that could be secondary to multiple causes none of them is acutely to be evaluated in the ER but the patient have no alarming symptoms of back pain, there is no incontinence of stool or urine and he does not have any weakness Right now the patient was provided with a blood test mostly vitamin B12 and folic acid to be done as outpatient specially with his history of alcohol use before although he is not alcoholic at the moment Patient result to be referred to his primary care The patient to follow-up with the primary care within 2 to 3 days and to come back to the ER in case of any worsening of the current symptoms or any new symptoms or concerns Was provided with Mobic as needed for pain Discharge Plan Discharge Chief Complaint: Anxiety Clinical Impression: Anxiety, Peripheral neuropathy Patient Disposition: Home, Self-Care Time of Disposition Decision: 13:28 Condition: Good Prescriptions / Home Meds: New lorazepam [Ativan] 0.5 mg tablet 0.5 mg PO DAILY PRN (Reason: anxiety) Qty: 3 0RF meloxicam 15 mg tablet 15 mg PO DAILY PRN (Reason: pain) Qty: 10 0RF Discontinued diclofenac sodium 75 mg tablet,delayed release (DR/EC) 75 mg PO BID PRN (Reason: pain ) Qty: 14 0RF olanzapine 10 mg tablet 10 mg PO .qhs olanzapine 2.5 mg tablet 2.5 mg PO BID PRN (Reason: anxiety) methocarbamol 750 mg tablet 750 mg PO Q6H PRN (Reason: pain) Qty: 20 0RF No Action atorvastatin 20 mg tablet 20 mg PO DAILY levothyroxine 100 mcg tablet 100 mcg PO QDAY pantoprazole 40 mg tablet,delayed release (DR/EC) 40 mg PO QDAY sertraline 100 mg tablet 200 mg PO DAILY Print Language: Citizen Of [place] Instructions: Peripheral Neuropathy (ED), Anxiety (ED) Referrals: Dg Galo [Primary Care Provider] - 1 week Discharge Date/Time: 09/12/25 13:48
[2025-09-12 13:45] VITALS: BP 150/88; PULSE 78; O2SAT 97
== END 2025-09-12 13:48 | disposition home or self-care (01) ==
PROVIDERS: Emergency Provider Emergency Medicine; PCP Family Medicine
DX: F41.9 Anxiety disorder, unspecified (principal); G62.9 Polyneuropathy, unspecified; R20.2 Paresthesia of skin
CPT/HCPCS: 36415; 82607; 82746; 99283

== ENCOUNTER 2025-09-12 13:45 | Outpatient (OUT) | payer MEDICARE, MEDICAID, SELFPAY ==
--- OUTSIDE RECORDS SUMMARY | 2025-09-12 13:55 | XMS_ITS | CCD ---
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 Name Role Phone CARLOS ENRIQUE MAGUIRE Admitting [...] KOENIG Consulting Unavailable QUENTIN ZHAO Admitting Unavailable QUENTNI ZHAO Attending Unavailable QUENTIN ZHAO Consulting Unavailable PURA RUSSELL Consulting Unavailable Josephine Castillo Unavailable Carlos Enrique Maguire MD Unavailable Carlos Enrique Maguire MD Primary Care Provider Carlos Enrique Maguire MD Unavailable Carlos Enrique Maguire MD Primary Care Provider Carlos Enrique Maguire II Primary Care Provider Rebeca Dill APRN Attending Provider Jaqui Zeng APRN Attending Provider [phone] Anny Bhatti APRN Attending Provider [phone] Carlos Enrique Maguire MD Primary Care Provider [phone] Tonya Hare APRN Attending Provider Alexander Lopez MD Primary Care Provider MONICA ORTIZ Attending Unavailable CARLOS ENRIQUE MAGUIRE Referring Unavailable ALEXANDER LOPEZ Primary Care Unavailable Unallocatbessie QUACH, Noms Provider Primary Care Provi alba Benjy Ackerman Attending Unavailab le MekaBenjy fonseca Admitting Unavailab le Andrez Carlos Enrique Primary Care Unavailable Steele DO, Jean Pierre L Primary Care Provider Carlos Enrique Maguire MD Unavailable [phone] RAUDEL CROWLEY Primary Care Unavailable VERHOFF, GABI [...] NADERER, ALEXANDER Primary Care Unavailable NADERER, ALEXANDER Primary Care Unavailable RYAN, KOTA E Admitting [...] Unavailable CUTLER JEAN PIERRE L Attending Unavailable MICHAEL KONG Attending Unavailable Alexander Lopez MD Unavailable Allergies Allergy ClassificationReported Allergen(s)Allergy TypeDate of OnsetReaction(s) Facility (7 sources)Penicillins; Translations: [PENICILLINS]Drug allergy (disorder) 53-66-4604[facility]atmQeyL[facility] ([facility] source)PenicillinDrug AllergyGeneral [facility] LUVHAN Other (20 sources)PenicillinsDrug Esdaaeqzxkb39-78-1777HpugxmnmUYIK [employer] Work Phone: (14 sources)PenicillinsPropensity to adverse reactions to ztxi97-93-9881Jjgxrffm [employer] (1 source)PenicillinsDrug allergy (disorder)65-53-7218[facility]qyjlVan [facility] ([facility] source)ALLERGIES NOT ON FILE; Translations: [ALLERGIES NOT ON FILE]Propensity to adverse reactions (disorder)[facility] Repository Medications Current Medications MedicationDrug Class(es)DatesSig (Normalized)Sig (Original)atorvastatin 20 mg oral tablet (20 sources)HMG-CoA Reductase InhibitorStart: 12-10-2023 End: 46-58-8100mdvj 1 tablet by mouth once dailyatorvastatin (Lipitor) 20 MG tablet Indications: Mixed hyperlipidemia Take 1 tablet (20 mg) by mouth Daily 30 tablet 2 07/26/2025 10/24/2025 Activebacitracin zinc 0.5 unt/mg topical ointment (20 sources)Start: 31-73-3185kzvtvvhrdu zinc ointment Apply 1 Application topically in the morning and 1 Application before bedtime. 120 g 07/09/2025 ActiveStart: 05-24-2025 End: 30-62-9353bgpiyduems 500 UNIT/GM ointment Indications: Abrasion Apply topically in the morning and before bedtime. 14 g 1 05/24/2025 08/11/2025 Discontinued (Therapy completed)baclofen 10 mg oral tablet (17 sources)gamma-Aminobutyric Acid-ergic AgonistStart: 05-31-2025 End: 00-21-9042bdij 1 tablet by mouth twice daily as neededbaclofen (Lioresal) 10 MG tablet Take 10 mg by mouth 2 (two) times a day as needed 06/06/2025 Active 24 hr buPROPion hydrochloride 150 mg extended release oral tablet (19 sources)AminoketoneStart: 09-29-2024 End: 02-39-1049qifc 1 tablet by mouth every twenty-four hours in the morning buPROPion XL (Wellbutrin XL) 150 MG 24 hr tablet Indications: Reactive depression (situational) (CMS/HCC) Take 1 tablet (150 mg) by mouth in the morning. Do not crush, chew, or split.. 30 tablet 2 11/09/2024 02/28/2025 Discontinued (Ineffective)busPIRone hydrochloride 5 mg oral tablet (19 sources)Start: 11-09-2024 End: 67-49-3538whmn 2 tablets by mouth in the morning, [...] tablet 11/09/2024 02/28/2025 Discontinued (Ineffective)Start: 01-22-2024 End: 88-59-6437imrr 1 tablet by mouth in the morningbusPIRone (Buspar) 5 MG tablet Take 5 mg by mouth in the morning and 5 mg before bedtime. 01/22/2024 11/09/2024 Discontinued (Reorder)cephalexin 500 mg oral capsule (1 source)Cephalosporin AntibacterialStart: 84-21-2124rgii 1 capsule by mouth three times dailyCephalexin 500 mg capsule Active 500 MG PO Three times daily 24 04June 30, 2025 12:00am Complies with drug therapyclindamycin 300 mg oral capsule (1 source)Lincosamide AntibacterialStart: 89-49-5577huvc 1 capsule by mouth every twelve hoursClindamycin HCl 300 MG 1 capsule Orally every 12 hrs for 7 days Jul, Activecyclobenzaprine hydrochloride 5 mg oral tablet (20 sources)Muscle RelaxantStart: 05-24-2025 End: 32-06-5515qfbf 1 tablet by mouth three times daily [...] release oral tablet (20 sources)Nonsteroidal Anti-inflammatory DrugStart: 21-29-8375sbcpwkpjbm sodium (VOLTAREN) 1 % gel Apply 2 g topically in the morning and 2 g at noon and 2 g in the evening and 2 g before bedtime. 100 g 07/09/2025 ActiveStart: 09-24-2024 End: 42-68-2944nzzn 1 tablet by mouth in the morningdiclofenac (Voltaren) 75 MG EC tablet Indications: Severe back pain Take 1 tablet (75 mg) by mouth in the morning and 1 tablet (75 mg) before bedtime. 180 tablet 3 07/26/2025 07/26/2026 Activegabapentin 600 mg oral tablet (20 sources)Anti-epileptic AgentStart: 55-96-3673ncln 1 tablet by mouth in the morning, then take 1 tablet by mouth in the evening, then take 1 tablet by mouth at bedtimegabapentin (Neurontin) 600 MG tablet Take 600 mg by mouth in the morning and 600 mg in the evening and 600 mg before bedtime. 07/19/2025 Active Start: 04-26-2025 End: 58-42-8154suqp 1 capsule by mouth three times dailygabapentin (NEURONTIN) 300 mg capsule Indications: Thoracic spondylosis without myelopathy , Lumbar spondylosis Take 1 capsule (300 mg total) by mouth 3 (three) times a day. 90 capsule 1 05/23/2025 07/19/2025 Discontinued (Reorder)hydrOXYzine pamoate 50 mg oral capsule (12 sources)AntihistamineStart: 18-19-5972luus 50-100 mg by mouth every six hours as needed for anxiety and anxiety and anxietyhydrOXYzine pamoate (Vistaril) 50 MG capsule Indications: Anxiety Take 1-2 capsules (50-100 mg) by m outh every 6 (six) hours if needed for anxiety 90 capsule 11 08/16/2025 Active Start: 90-88-6511qowk 50-100 mg by mouth every six hours as needed for anxiety and anxiety and anxietyhydrOXYzine pamoate (Vistaril) 50 MG capsule Indications: Anxiety Take 1-2 capsules (50-100 mg) by mouth every 6 (six) hours if needed for anxiety 90 capsule 11 08/16/2025 ActiveStart: 07-26-2025 End: 38-17-2213pgeb 1 capsule by mouth every six hours as needed for anxiety and anxiety and anxietyhydrOXYzine pamoate (Vistaril) 50 MG capsule Indications: Anxiety Take 1 capsule (50 mg) by mouth every 6 (six) hours if needed for anxiety 90 capsule 11 07/26/2025 08/16/2025 Discontinued (Reorder)ibuprofen 600 mg oral tablet (6 sources)Nonsteroidal Anti-inflammatory DrugStart: 54-45-6110yexf 1 tablet by mouth every six hours as needed for painibuprofen (MOTRIN) 600 mg tablet Take 1 tablet (600 mg total) by mouth every 6 (six) hours as needed for pain. 30 tablet 07/09/2025 Activelevothyroxine sodium 0.1 mg oral tablet (20 sources)l-ThyroxineStart: 12-10-2023 End: 18-30-4574mxgj 1 tablet by mouth before mealtimelevothyroxine (Synthroid, Levoxyl) 100 MCG tablet Indications: Hypothyroidism, unspecified Take 1 tablet (100 mcg) by mouth in the morning. Take before meals. 100 tablet 3 07/26/2025 ActiveLevothyroxine Sodium 100 MCG Oral for 90 Days Activemeloxicam 15 mg oral tablet (20 sources)Nonsteroidal Anti-inflammatory DrugStart: 03-15-2025 End: 49-91-6606qcdo 1 tablet by mouth in the morningmeloxicam (MOBIC) 15 mg tablet Take 1 tablet (15 mg total) by mouth in the morning. 30 tablet 1 07/05 Activemupirocin 0.02 mg/mg topical ointment (6 sources)RNA Synthetase Inhibitor AntibacterialStart: 43-38-4016Ssrptrkxr 2 % ointment Active 1 APPLIC TOPICAL Three times daily 26 07June 30, 2025 12:00amComplies with drug therapyStart: 06-15-2025 End: 22-05-0432opmtwxbok (Bactroban) 2 % cream Indications: Skin infection Apply topically in the morning and in the evening and before bedtime. Do all this for 10 days. 15 g 06/15/2025 06/25/2025 ActiveOLANZapine 10 mg oral tablet (18 sources)Atypical AntipsychoticStart: 49-30-7509bqwf 1 tablet by mouth twice daily as needed for anxietyOLANZapine (ZyPREXA) 2.5 MG tablet Indications: Bipolar disorder, in partial remission, most recentepisode mixed (HCC) Take 1 tablet (2.5 mg) by mouth 2 (two) times a day as needed (acute anxiety) 60 tablet 3 08/16/2025 ActiveStart: 62-82-9647knxb 1 tablet by mouth twice daily as needed for anxietyOLANZapine (ZyPREXA) 2.5 MG tablet Indications: Bipolar disorder, in partial remission, most recentepisode mixed (HCC) Take 1 tablet (2.5 mg) by mouth 2 (two) times a day as needed (acute anxiety) 60 tablet 3 08/16/2025 ActiveStart: 44-05-9016smgw 1 tablet by mouth at bedtimeOLANZapine (ZyPREXA) 10 MG tablet Indications: Reactive depression (situational) , Bipolar disorder, in partial remission, most recent episode mixed (HCC) Take 1 tablet (10 mg) by mouth at bedtime 90tablet 1 08/16/2025 ActiveStart: 36-25-3845ixeb 1 tablet by mouth at bedtimeOLANZapine (ZyPREXA) 10 MG tablet Indications: Reactive depression (situational) , Bipolar disorder, in partial remission, most recent episode mixed (HCC) Take 1 tablet (10 mg) by mouth at bedtime 90tablet 1 08/16/2025 ActiveStart: 07-31-2025 End: 16-08-8992eque 1 tablet by mouth at bedtimeOLANZapine (ZyPREXA) 5 MG tablet Indications: Anxiety , Reactive depression (situational) Take 1 tablet (5 mg) by mouth at bedtime 90 tablet 1 07/31/2025 08/16/2025 Discontinued (Reorder)Start: 01-22-2024 End: 35-23-1592opqj 1 tablet by mouth at bedtimeOLANZapine (ZyPREXA) 5 MG tablet Take 1 tablet by mouth at bedtime 01/22/2024 11/09/2024 Discontinued (Side effects)take 1 tablet by mouth once dailyOLANZapine 20 MG TAKE 1 TABLET BY MOUTH ONCE DAILY Oral for 67 Days Activeondansetron 4 mg disintegrating oral tablet (4 sources)Serotonin-3 Receptor AntagonistStart: 05-24-2025 End: 16-51-0650draa 1 tablet by mouth every eight hours for nauseaondansetron ODT (Zofran-ODT) 4 MG disintegrating tablet Indications: Nausea and vomiting, unspecified vomiting type Take 1 tablet (4 mg) by mouth every 8 (eight) hours if needed for nausea or vomiting for up to 7 days 21 tablet 05/24/2025 05/31/2025 ActiveStart: 02-06-2025 End: 95-52-3123kcmo 1 tablet by mouth every eight hours for nauseaondansetron ODT (Zofran-ODT) 4 MG disintegrating tablet Indications: Nausea and vomiting, unspecified vomiting type Take 1 tablet (4 mg) by mouth every 8 (eight) hours if needed for nausea or vomiting for up to 7 days 21 tablet 02/06/2025 02/13/2025 Lwfmoy35 hr orphenadrine citrate 100 mg extended release oral tablet (20 sources)Muscle RelaxantStart: 12-16-2024 End: 73-09-3600jbtj 1 tablet by mouth twice daily as needed for muscle spasms orphenadrine (Norflex) 100 MG 12 hr tablet Indications: Muscle spasm Take 1 tablet (100 mg) by mouth 2 (two) times a day as needed for muscle spasms Do not crush, chew, or split. 60 tablet 1 02/28/2025 05/24/2025 Discontinued (Ineffective)Start: 09-24-2024 End: 45-86-3398bsaz 1 tablet by mouth twice daily as [...] tablet (20 sources)Proton Pump InhibitorStart: 05-24-2025 End: 13-97-5894dism 1 tablet by mouth once dailypantoprazole (ProtoNix) 40 MG EC tablet Indications: Gastroesophageal reflux disease with esophagitis without hemorrhage Take 1 tablet (40 mg) by mouth Daily Do not crush, chew, or split. 90 tablet 07/26/2026 ActivepredniSONE 10 mg oral tablet (7 sources)Start: 06-15-2025 End: 89-29-1312iqwn 4 tablets by mouth in the morningpredniSONE (DELTASONE) 10 mg tablet Take by mouth in the morning. 40 mg taper as directed . 06/15/2025 07/01/2025 Activesertraline 100 mg oral tablet (20 sources)Serotonin Reuptake InhibitorStart: 29-58-6280Xesxgaekyw 100 mg tablet Active 100 MG PO May 17, 2025 12:00am Complies with drug therapy Start: 11-09-2024 End: 90-27-6661cjqw 2 tablets by mouth at bedtimesertraline (Zoloft) 100 MG tablet Indications: Reactive depression (situational) Take 2 tablets (200 mg) by mouth at bedtime 60 tablet 2 07/26/2025 10/24/2025 Activesod sulf-pot chloride- mag sulf 1.479-0.188- 0.225 gram tablet (7 sources)Start: 36-59-6424esi sulf-pot chloride-mag sulf 1.479-0.188- 0.225 gram tablet Indications: Weight loss , Nausea andvomiting, unspecified vomiting type Please see instructional sheet given by physicians office. 24 tablet 07/11/2025 ActiveStart: 07-11-2025 End: 63-11-4803gfs sulf-pot chloride-mag sulf 1.479-0.188- 0.225 gram tablet Indications: Weight loss , Nausea andvomiting, unspecified vomiting type Please see instructional sheet given by physicians office. 24 tablet 07/11/2025 07/11/2025 Discontinuedsucralfate 1000 mg oral tablet (20 sources)Aluminum ComplexStart: 88-01-8452Ipyhcuuljg 1 gram tablet Active PO June 30, 2025 12:00am Complies with drug therapyStart: 06-15-2025 End: 21-18-4916upnc 1 tablet by mouth three times daily as needed for gastroesophageal reflux diseasesucralfate (Carafate) 1 g tablet Indications: Gastric pain , Nausea and vomiting, unspecified vomiting type Take 1 tablet (1 g) by mouth 3 (three) times a day as needed (reflux) 120 tablet 3 07/26/2025 ActivetraMADol hydrochloride 50 mg oral tablet (20 sources)Opioid AgonistStart: 05-17-2025 End: 38-92-4561kamz 1 tablet by mouth every six hours for paintraMADol (Ultram) 50 MG tablet Indications: Severe back pain Take 1 tablet (50 mg) by mouth every 6(six) hours if needed for severe pain for up to 7 days 28 tablet 05/22/2025 08/11/2025 Discontinued(Therapy completed)Start: 03-02-2025 End: 79-23-0154ttwf 2 tablets by mouth every six hours as neededtraMADoL (ULTRAM) 50 mg tablet Take 2 tablets (100 mg total) by mouth every 6 (six) hours as needed. 03/02/2025 ActiveStart: 02-28-2025 End: 99-54-3650ieju 2 tablets by mouth every six hours for paintraMADol (Ultram) 50 MG tablet Indications: Severe back pain Take 2 tablets (100 mg) by mouth every6 (six) hours if needed for severe pain 28 tablet 02/28/2025 02/28/2025 Discontinued (Ineffective)Start: 02-23-2025 End: 53-72-5574eggx 1 tablet by mouth every six hours for paintraMADol (Ultram) 50 MG tablet Indications: Severe back pain Take 1 tablet (50 mg) by mouth every 6(six) hours if needed for severe pain 28 tablet 02/23/2025 02/28/2025 Discontinued (Reorder)Start: 01-10-2025 End: 25-47-0219olsc 1 tablet by mouth every six hours for paintraMADol (Ultram) 50 MG tablet Indications: Severe back pain Take 1 tablet (50 mg) by mouth every 6(six) hours if needed for severe pain 28 tablet 01/26/2025 ActiveStart: 11-29-2024 End: 42-28-3227rlja 1 tablet by mouth every six hours for paintraMADol (Ultram) 50 MG tablet Indications: Severe back pain Take 1 tablet (50 mg) by mouth every 6(six) hours if needed for moderate pain or severe pain for up to 7 days 28 tablet 11/29/2024 12/06/2024 Activetriamcinolone acetonide 1 mg/ml topical cream (6 sources)CorticosteroidStart: 07-26-2025 End: 21-53-6603qeeifhmfsmjgs (Kenalog) 0.1 % cream Indications: Dermatitis Apply topically in the morning and before bedtime. 30 g 07/26/2025 08/11/2025 Discontinued (Therapy completed) Completed/Discontinued Medications MedicationDrug Class(es)DatesSig (Normalized)Sig (Original)ALPRAZolam 0.25 mg oral tablet (6 sources)BenzodiazepineStart: 09-29-2024 End: 81-12-5350biqs 1 tablet by mouth three times daily as needed for anxiety ALPRAZolam (Xanax) 0.25 MG tablet Indications: Situational mixed anxiety and depressive disorder (CMS/HCC) Take 1 tablet (0.25 mg) by mouth 3 (three) times a day as needed for anxiety for up to 10 days 30 tablet 09/29/2024 11/09/2024 Discontinued (Side effects)cariprazine 4.5 mg oral capsule (9 sources)Atypical AntipsychoticStart: 08-08-2024 End: 01-61-3417ttwo 1 capsule by mouth once dailyVraylar 4.5 MG capsule Take 1 capsule by mouth Daily 08/08/2024 11/09/2024 Discontinued (Cost of medication) End: 12-20-4334pphv 1 capsule by mouth once dailyCariprazine HCl (Vraylar) 3 MG capsule Take 3 mg by mouth Daily 09/29/2024 Discontinued (Other)doxycycline hyclate 100 mg oral capsule (2 sources)Tetracycline-class DrugStart: 06-13-2025 End: 37-13-4311vbgg 1 capsule by mouth twice dailyDoxycycline Hyclate 100 mg capsule Discontinued 100 MG PO Twice daily 24 07June 13, 2025 12:00am June 30, 2025 11:09amLORazepam 1 mg oral tablet (20 sources)BenzodiazepineStart: 06-13-2025 End: 40-46-0501Urvjjdgrs 0.5 mg tablet Discontinued MG PO June 13, 2025 12:00am June 30, 2025 11:10amStart: 03-02-2025 End: 73-52-3633xkym 1 tablet by mouth three times daily as needed for anxiety LORazepam (Ativan) 1 MG tablet Indications: Anxiety Take 1 tablet (1 mg) by mouth 3 (three) times aday as needed for anxiety for up to 10 days 30 tablet 06/26/2025 07/26/2025 DiscontinuedStart: 02-28-2025 End: 24-04-2578ligh 1 tablet by mouth three times daily as needed for anxiety LORazepam (Ativan) 1 MG tablet Indications: Anxiety Take 1 tablet (1 mg) by mouth 3 (three) times aday as needed for anxiety 30 tablet 02/28/2025 02/28/2025 Discontinued (Ineffective)Start: 11-29-2024 End: 20-02-9967zgyb 1 tablet by mouth twice daily as needed for anxietyLORazepam (ATIVAN) 0.5 mg tablet Take 1 tablet (0.5 mg total) by mouth 2 (two) times a day as needed for anxiety. 02/23/2025 ActiveStart: 08-08-2024 End: 06-76-4638rzcx 1 tablet by mouth every twenty-four hours as needed for anxiety and anxiety and anxietyLORazepam (Ativan) 0.5 MG tablet Indications: Anxiety Take 1 tablet (0.5 mg) by mouth Daily as needed for anxiety 30 tablet 2 11/09/2024 02/07/2025 Activemirtazapine 30 mg oral tablet (20 sources)Start: 01-22-2024 End: 53-30-0808rsfr 1 tablet by mouth at bedtimemirtazapine (Remeron) 30 MG tablet Indications: Reactive depression (situational) Take 1 tablet (30mg) by mouth at bedtime 30 tablet 2 11/09/2024 07/26/2025 DiscontinuedMirtazapine 30 MG Oral for 67 Days Activesulfamethoxazole 800 mg / trimethoprim 160 mg oral tablet (4 sources)Dihydrofolate Reductase Inhibitor Antibacterial, Sulfonamide AntimicrobialStart: 05-17-2025 End: 94-56-1944anqz 1 tablet by mouth every twelve hoursSulfamethoxazole- Trimethoprim (Bactrim Ds) 800-160 mg tablet Discontinued 1 TAB PO Every 12 hours May 17, 2025 12:00am June 06, 2025 9:03amtiZANidine 4 mg oral tablet (20 sources)Central alpha-2 Adrenergic AgonistStart: 12-19-2024 End: 88-64-9600zxxv 1 tablet by mouth every eight hours as neededtiZANidine (ZANAFLEX) 4 mg tablet Take 1 tablet (4 mg total) by mouth every 8 (eight) hours as needed for muscle spasms. TAKE 1 TABLET(4 MG) BY MOUTH EVERY 8 HOURS NEEDED FOR MUSCLE SPASMS 12/19/2024 07/19/2025 Discontinued (Alternate therapy) Start: 01-25-2024 End: 03-74-0790xwzt 1 tablet by mouth every eight hours for muscle spasms tiZANidine (Zanaflex) 4 MG tablet Indications: Acute strain of neck muscle, initial encounter Take 1 tablet (4 mg) by mouth every 8 (eight) hours if needed for muscle spasms 90 tablet 11/09/2024 12/09/2024 Active Problems Active Problems Problem ClassificationProblemDateDocumented DateEpisodic/ChronicAbdominal pain (20 sources)Unspecified abdominal pain; Translations: [Generalized abdominal pain]Onset: 366901-16-0540YkqdiaorOwxnljicgy disorders (3 sources)Mixed anxiety and depressive disorder; Translations: [Adjustment disorder with mixed anxiety and depressed mood]26-07-1118NtrsyiyZyvirby-related disorders (20 sources)History of alcohol abuse; Translations: [Alcohol abuse, in remission]Onset: 12-06-2009 Resolved: 950714-97-9395IgfzzjdVjwmzmis reactions (2 sources)Inflammatory dermatosis; Translations: [Dermatitis, unspecified] 13-22-9862LdlgydqvXinzzol disorders (20 sources)Anxiety disorder, unspecified; Translations: [Anxiety disorder] Onset: 929345-81-7597PlyppdbReyideg disorders (2 sources)Organic anxiety disorder; 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]14-90-7029OlfglekbJrlbmzw obstructive pulmonary disease and bronchiectasis (1 source)Emphysema, unspecified; Translations: [EMPHYSEMA UNSPECIFIED]Onset: 12-44-1052YwmhkgqDhhuijeef of lipid metabolism (20 sources)Hyperlipidemia, unspecified; Translations: [Mixed hyperlipidemia] Onset: 050815-18-9651VjryfnhDsecltaxw of lipid metabolism (1 source)Pure hypercholesterolemia, unspecified; Translations: [PURE HYPERCHOLESTEROLEMIA UNSPEC]Onset: 96-25-5024Modimmjfku disorders (20 sources)Gastro-esophageal reflux disease without esophagitis; Translations: [Gastroesophageal reflux disease]Onset: 187160-53-6352UafyfniIqpoglcza hypertension (4 sources)Hypertensive disorder; Translations: [Essential (primary) hypertension]97-14-5371NtylsmxWmjuu and electrolyte disorders (2 sources)Hypokalemia; Translations: [Dehydration]Onset: 23-75-0365Iqrrhaoo Heart valve disorders (5 sources)Heart murmur; Translations: [Cardiac murmur, unspecified]Onset: 804719-82-0726ZkwfgngoErls disorders (20 sources)Bipolar disorder; Translations: [Bipolar disorder, unspecified] Onset: 003443-82-9054VwrqjdiImlnhl and vomiting (20 sources)Nausea and vomiting; Translations: [Nausea with vomiting, unspecified]Onset: 263380-20-3871YoqapookKaeioftmglp chest pain (4 sources)Chest pain, unspecified; Translations: [CHEST PAIN UNSPECIFIED]Onset: 28-33-1458MhfbxbhdLykx wounds of extremities (2 sources)Puncture wound of left hand; Translations: [Puncture wound without foreign body of left hand, initial encounter]75-16-4489DditovgpAqda wounds of head; neck; and trunk (2 sources)Unspecified open wound of other part of head, initial encounter; Translations: [Facial laceration ]Onset: 63-79-4030UwkrxxegUngvt aftercare (1 source)Other fci (current) drug therapy; Translations: [OTH SNF CURRENT DRUG THERAPY]Onset: 94-65-1614ObpnprtwAqckm aftercare (2 sources)Post-discharge follow-up; Translations: [Encounter for follow-up examination after completed treatment for conditions other than malignant neoplasm]33-04-5343PbeqxuelXdkvr connective tissue disease (6 sources)Spasm; Translations: [Other muscle spasm]35-86-0914YwvyvnxpTldrq gastrointestinal disorders (20 sources)Chronic idiopathic constipation; Translations: [Chronic idiopathic constipation]Onset: 252779-39-5532WxbfzadEtogg gastrointestinal disorders (4 sources)Dysphagia; Translations: [Dysphagia, unspecified]14-72-5357Drxczyed Other gastrointestinal disorders (1 source)Chronic constipation; Translations: [Other constipation]08-11-2025 EpisodicOther injuries and conditions due to external causes (2 sources)Abrasion; Translations: [Other injury of unspecified body region, initial encounter]81-93-2206LanhkhkeHtszf lower respiratory disease (2 sources)Rib pain; Translations: [Pleurodynia]76-57-6305TlacmubpRuwvu lower respiratory disease (1 source)Cough; Translations: [Acute cough]20-45-1700DfukrhhqOlhwc lower respiratory disease (4 sources)Dyspnea; Translations: [Shortness of breath]58-56-8496XeavxplrHsczi lower respiratory disease (1 source)Shortness of breath; Translations: [Shortness of breath]Onset: 49-06-4655FwevpyhbSlask nervous system disorders (1 source)Other chronic pain; Translations: [Other chronic pain]Onset: 17-44-1126QtaukfpHbcro non-traumatic joint disorders (1 source)Pain in right knee; Translations: [Pain in right knee]Onset: 09-38-3888LtqgihahCxybd non-traumatic joint disorders (1 source)Pain in left knee; Translations: [Pain in left knee]Onset: 08-09-2025 EpisodicOther nutritional; endocrine; and metabolic disorders (3 sources)Weight loss; Translations: [Abnormal weight loss]Onset: 07-11-2025 96-13-8186DrxuteuxWoaqg nutritional; endocrine; and metabolic disorders (7 sources)Weight decreased; Translations: [Abnormal weight loss]02-28-2025 EpisodicOther nutritional; endocrine; and metabolic disorders (1 source)Abnormal weight loss; Translations: [Abnormal weight loss]Onset: 90-23-9705WzvkquljAgpue nutritional; endocrine; and metabolic disorders (14 sources)Unintentional weight loss; Translations: [Abnormal weight loss] Onset: 055267-67-3588RterrcfaPyhuq screening for suspected conditions (not mental disorders or infectious disease) (8 sources)Patient encounter status; Translations: [Encounter for screening for malignant neoplasm of prostate]32-53-5145LgcyjostDpnsb skin disorders (2 sources)Folliculitis; Translations: [Follicular disorder, unspecified] 80-19-8429PgznhnhaBkqy-; endo-; and myocarditis; cardiomyopathy (except that caused by tuberculosis or sexually transmitted disease) (2 sources)Pericardial effusion; Translations: [Pericardial effusion (HHS-HCC)] 37-09-9179SmidlovaDdmcuwmo codes; unclassified (4 sources)Tobacco user; Translations: [Tobacco use]97-78-5785MuhctmsdXsyvjbbmg and history of mental health and substance abuse codes (2 sources)Tobacco use and exposure - qdvaiek06-09-3897UweafuyAvdcwhjln and history of mental health and substance abuse codes (6 sources)Personal history of nicotine dependence; Translations: [Tobacco use and exposure - finding]30-40-3483VbshqtnzWlja and subcutaneous tissue infections (10 sources)Impetigo; Translations: [Impetigo, unspecified]94-49-7981Ejdrwktu Spondylosis; intervertebral disc disorders; other back problems (20 sources)Degeneration of thoracic intervertebral disc; Translations: [Other intervertebral disc degeneration, thoracic region]Onset: ChronicSpondylosis; intervertebral disc disorders; other back problems (20 sources)Backache; Translations: [Dorsalgia, unspecified]Onset: 03-15-2025 09-78-7912CfzakpbdLmklhgq and strains (2 sources)Strain of neck muscle; Translations: [Strain of muscle, fascia and tendon at neck level, initial encounter]97-04-4380QreszkpoChhsamnsy-related disorders (20 sources)Nicotine dependence, cigarettes, uncomplicated; Translations: [History of drug abuse]Onset: 12-06-2009 Resolved: 613247-08-4971MnkdeosJedahnnxgfs injury; contusion (1 source)Blister (nonthermal) of oral cavity, initial encounterEpisodicThyroid disorders (20 sources)Hypothyroidism; Translations: [Hypothyroidism, unspecified]Onset: 603453-47-5002VlqzdidMbzdtwucftdr (4 sources)Patient encounter -70-9349Vukbggvjuvsc (6 sources)Autogenerated ProblemOnset: 394311-98-0946Dteowistttzn (1 source)Anxiety, Med RefillOnset: 11-28-2024 Past or Other Problems Problem ClassificationProblemDateDocumented DateEpisodic/ChronicCardiac dysrhythmias (20 sources)Palpitations; Translations: [Palpitations]Onset: 12-09-2009 04-20-7340TnvfoqwgLpncqudoor associated with dizziness or vertigo (20 sources)Dizziness and giddiness; Translations: [Dizziness and giddiness] Onset: 903337-04-4848NzrantbmTefughao; convulsions (20 sources)Seizure; Translations: [Unspecified convulsions]Onset: 07-01-2023 60-05-7163TpalmqviJimxjfwihny (20 sources)Bleeding external hemorrhoids; Translations: [Residual hemorrhoidal skin tags]Onset: 041510-86-0251RxyxxxafFlow disorders (20 sources)Mood disordersOnset: 12-09-2023 Resolved: 893858-52-5179Ijmygbgfwbb deficiencies (20 sources)Vitamin B deficiency; Translations: [Deficiency of other specified B group vitamins]Onset: 025539-34-2157FqhnschmTfzls circulatory disease (20 sources)Orthostatic hypotension; Translations: [Orthostatic hypotension] Onset: 835672-87-3621EzhfibilPewzc nutritional; endocrine; and metabolic disorders (1 source)Anorexia; Translations: [ANOREXIA]Onset: 02-17-8895HgailtcdMnmra nutritional; endocrine; and metabolic disorders (20 sources)Loss of appetite; Translations: [Anorexia]Onset: 07-01-2023 57-21-7764HiggxpluXtvsr skin disorders (20 sources)Excessive sweating; Translations: [Generalized hyperhidrosis]Onset: 12-09-2009 Resolved: 032968-27-9765MqregykqGlxjcajk codes; unclassified (1 source)Pain, unspecified; Translations: [Pain, unspecified]Onset: 03-02-2025 Episodic Results Test NameValueInterpretationReference RangeFacilityMR THORACIC SPINE WO CONTon 04-78-6499VU THORACIC SPINE WO CONTMR THORACIC SPINE WO [...] by Stevan Hagen MD on 08/10/2025 8:11 AMNNorth Metro Medical Centerca [facility] CenterCT CHEST W IV CONTRASTon [id number] CHEST W IV CONTRASTEXAM: CT CHEST NON-CONTRAST [...] SolismalNot AvailableXR KNEE LT 3 VWS on 30-08-8896QB KNEE LT 3 VWSXR KNEE LT 3 VWS History: Pain Exam/Technique: Frontal lateral and oblique views of the left knee were obtained. Comparison: None Findings: There is no evidence for an acute osseous abnormality. No significant degenerative changes are seen. No joint effusions are identified. IMPRESSION: Normal left knee. Finalized by Roberto Fisher MD on 08/09/2025 1:00 PMNTriHealth McCullough-Hyde Memorial HospitalXR KNEE RT 3 VWSon [id number] KNEE RT 3 VWSXR KNEE RT 3 VWS History: Pain Exam/Technique: Frontal lateral and oblique views of the right knee were obtained. Comparison: None Findings: There is no evidence for an acute osseous abnormality. No significant degenerative changes are seen. No joint effusions are identified. IMPRESSION: Normal right knee. Finalized by Roberto Fisher MD on 08/09/2025 12:[address] [facility] W Auto Differential panel (Bld)on 68-81-6750Yaxzrbkqm (Bld) [#/Vol] 0.1 10*3/uLNOMS HealthcareBasophils/100 WBC (Bld)1 %Not Estab.[facility] Eosinophils (Bld) [#/Vol]0.2 10*3/uLNOMS HealthcareEosinophils/100 WBC (Bld)2 % Not Estab.[facility] HealthcareErythrocyte distribution width (RBC) [Ratio]14.3 %11.6 - 15.4 %NOM HealthcareHematocrit (Bld) [Volume fraction]42.1 %37.5 - 51.0 %NOM HealthcareHemoglobin (Bld) [Mass/Vol]13.7 g/dL13.0 - 17.7 g/dLTwo [facility] Immature granulocytes (Bld) [#/Vol]0.0 10*3/uLNOMS HealthcareImmature granulocytes/100 WBC (Bld)0 %Not Estab.[facility] HealthcareLymphocytes (Bld) [#/Vol] 3.4 10*3/uLHighNOMS HealthcareLymphocytes/100 WBC (Bld)28 %Not Estab.[facility] HospitalMCH (RBC) [Entitic mass]29.0 pg26.6 - 33.0 pgNOCameron Regional Medical CenterMCHC (RBC) [Mass/Vol]32.5 g/dL31.5 - 35.7 g/dLTwo Rivers Psychiatric HospitalMCV (RBC) [Entitic vol]89 fL79 - 97 fLPRIMARY CHILDREN'S HOSPITAL HealthcareMonocytes (Bld) [#/Vol]1.0 10*3/uLHighNOMS Healthcare Monocytes/100 WBC (Bld)8 %Not Estab.[facility] HealthcareNeutrophils (Bld) [#/Vol]7.5 10*3/uLHighNOMS HealthcareNeutrophils/100 WBC (Bld)61 %Not Estab.[facility] Platelets (Bld) [#/Vol]401 10*3/uLNOMS HealthcareRBC (Bld) [#/Vol]4.73 10*6/uL [facility] HealthcareWBC (Bld) [#/Vol]12.3 10*3/uLHighNOMS HealthcareLaboratory - Chemistry and Chemistry - challengeon [id number] [Mass/Vol]4.2 g/dL3.8 - 4.9 g/dLNOMS HealthcareALP [Catalytic activity/Vol]102 U/LNOMS HealthcareALT [Catalytic activity/Vol]31 U/LNOMS HealthcareAST [Catalytic activity/Vol]30 U/L [facility] HealthcareBilirubin [Mass/Vol]0.5 mg/dL0.0 - 1.2 mg/dLNOCameron Regional Medical Center Calcium [Mass/Vol]9.1 mg/dL8.7 - 10.2 mg/dLNOVA HealthcareChloride [Moles/Vol] 102 mmol/L96 - 106 mmol/LNOMS HealthcareCO2 [Moles/Vol]24 mmol/L20 - 29 mmol/L [facility] HospitalCreatinine [Mass/Vol]0.81 mg/dL0.76 - 1.27 mg/dLNOCameron Regional Medical Center CRP [Mass/Vol]mg/L0 - 10 mg/LNHILLCREST HOS[facility] [place] HealthcareFree T4 [Mass/Vol]1.04 ng/dL0.82 - 1.77 ng/dLNOCameron Regional Medical CenterGFR/1.73 sq M.predicted among non-blacks MDRD (S/P/Bld) [Vol rate/Area]102 mL/min/{1.73_m2}59 - PINF mL/min/1.73NOCameron Regional Medical CenterGlobulin (S) [Mass/Vol]2.5 g/dL1.5 - 4.5 g/dLNOCameron Regional Medical CenterGlucose [Mass/Vol]102 mg/dL High70 - 99 mg/dLTwo Rivers Psychiatric HospitalPotassium [Moles/Vol]4.6 mmol/L3.5 - 5.2 mmol/L [facility] HealthcareProtein [Mass/Vol]6.7 g/dL6.0 - 8.5 g/dLTwo Rivers Psychiatric HospitalSodium [Moles/Vol]140 mmol/L134 - 144 mmol/LNChristian HospitalTSH Qn7.650 m[IU]/LHighNOVA HealthcareUrea nitrogen [Mass/Vol]23 mg/dL6 - 24 mg/dLTwo Rivers Psychiatric HospitalUrea nitrogen/Creatinine [Mass ratio]28 mg/mgHigh9 - 20NOCameron Regional Medical CenterLaboratory - Hematology and Cell countson 66-87-2254QTM (Bld) [Velocity]12 mm/hNChristian HospitalLipid 1996 panelon 48-23-8257Dnefgfsupjr [Mass/Vol]171 mg/dL100 - 199 mg/dLNOCameron Regional Medical CenterCholesterol in HDL [Mass/Vol]43 mg/dL39 - PINF mg/dLNOCameron Regional Medical CenterCholesterol in LDL [Mass/Vol]104 mg/dLHigh0 - 99 mg/dLTwo [facility] Cholesterol in VLDL [Mass/Vol]24 mg/dL5 - 40 mg/dLTwo Rivers Psychiatric HospitalTriglyceride [Mass/Vol]135 mg/dL0 - 149 mg/dLTwo Rivers Psychiatric HospitalNo Panel Informationon 07-28-2025 Interpretation and review of laboratory resultsAbnoGeisinger Community Medical CenterPerformed at: 01 - [facility] [address] [id number] [employer] Filling Mixer: Henri Figueroa PhD, Phone: [phone] HealthcareXR RIBS 3 VIEWS BILATERAL WITH CHEST POSTEROANTERIORon 07-50-9141XU RIBS 3 VIEWS BILATERAL WITH CHEST POSTEROANTERIORXR [...] interpreting Radiologist.NormalNot AvailableCT LUNG SCREENING LOW DOSEon 83-88-4126OZ LUNG SCREENING LOW DOSEThis is a summary [...] MDNonavidalNot AvailableCBC (H/H, RBC, INDICES, WBC, PLT)on 97-27-1439Dvpoxzjkcay distribution width (RBC) [Ratio]13.7 %Pntjwr12.0-15.0Quest DiagnosticsComment on above:Performed By: #### 927, 866, 10479, 32204, 5363, 1759, 7600 #### [facility] [place] [address] [employer] Rep[employer]man: Brian Alvares MDHematocrit (Bld) [Volume fraction]41.3 %Normal 38.5-50.0Quest DiagnosticsComment on above:Performed By: #### 927, 866, 14860, 03846, 5363, 1759, 7600 #### [facility] [address], [address] [place] [address] [employer] Rep[employer]man: Brian Alvares MDHemoglobin (Bld) [Mass/Vol]12.8 g/dLLow 13.2-17.1Quest DiagnosticsComment on above:Performed By: #### 927, 866, 79545, 63545, 5363, 1759, 7600 #### [facility] [place] [address] [employer] Rep[employer]man: Brian Alvares MDMCH (RBC) [Entitic mass]28.7 ulCjliba70.0-33.0 Quest DiagnosticsComment on above:Performed By: #### 927, 866, 61806, 52386, 5363, 1759, 7600 #### [facility] [place] [address] [employer] Rep[employer]man: Brian Alvares MDMCHC (RBC) [Mass/Vol]31.0 g/dLLow32.0-36.0 Quest DiagnosticsComment on above:Result Comment: For adults, a slight decrease in the calculated MCHC value (in the range of 30 to 32 g/dL) is most likely not clinically significant; however, it should be interpreted with caution in correlation with other red cell parameters and the patient's clinical condition.Performed By: #### 927, 866, 11419, 41721, 5363, 1759, 7600 #### [facility] of [place] [address], [address] [place] [address] Tire Repairman: Brian Alvares MDMCV (RBC) [Entitic vol]92.6 hFEltbtr47.0-100.0 Quest DiagnosticsComment on above:Performed By: #### 927, 866, 61770, 83723, 5363, 1759, 7600 #### [facility] [place] [address], [address] [place] [address] [employer] Repairman: Brian Alvares MDPlatelet mean volume (Bld) [Entitic vol]10.2 fLNormal7.5-12.5Quest DiagnosticsComment on above:Performed By: #### 927, 866, 01233, 83408, 5363, 1759, 7600 #### [facility] [place] [address] [address] , [address] [place] [address] [employer] Repairman: Brian Alvares MDPlatelets (Bld) [#/Vol]326 10*3/uLNormal 140-400Quest DiagnosticsComment on above:Performed By: #### 927, 866, 31358, 58756, 5363, 1759, 7600 #### [facility] [place] [address], [address] [place] [address] [employer] Repairman: Brian Alvares MDRBC (Bld) [#/Vol]4.46 10*6/uLNormal4.20-5.80 Quest DiagnosticsComment on above:Performed By: #### 927, 866, 90234, 71954, 5363, 1759, 7600 #### [facility] of [address] , [address] [place] [address] [employer] Repairman: Brian Alvares MDWBC (d) [#/Vol]9.0 10*3/uLNormal3.8-10.8 Quest DiagnosticsComment on above:Performed By: #### 927, 866, 65648, 94161, 5363, 1759, 7600 #### [facility] of [place] [address] [employer] Rep[employer]man: Brian Alvares MDCOMPREHENSIVE METABOLIC PANELon 03-01-2025 Albumin [Mass/Vol]4.3 g/dLNormal3.6-5.1Quest DiagnosticsComment on above: Performed By: #### 927, 866, 60289, 49872, 5363, 1759, 7600 #### [facility] [place] [address] [employer] Rep[employer]man: Brian Alvares MDAlbumin/Globulin [Mass ratio]1.7 {ratio}Normal 1.0-2.5Quest DiagnosticsComment on above:Performed By: #### 927, 866, 21874, 24881, 5363, 1759, 7600 #### [facility] [place] [address] [employer] Rep[employer]man: Brian Alvares MDALP [Catalytic activity/Vol]83 U/IAplgve86-634 Quest DiagnosticsComment on above:Performed By: #### 927, 866, 90142, 50134, 5363, 1759, 7600 #### [facility] of [place] [address] [employer] Rep[employer]man: Brian Alvares MDALT [Catalytic activity/Vol]17 U/LNormal9-46 Quest DiagnosticsComment on above:Performed By: #### 927, 866, 21258, 67913, 5363, 1759, 7600 #### [facility] of [place] [address] [employer] Rep[employer]man: Brain Alvares MDAST [Catalytic activity/Vol]18 U/XJvbake88-26 Quest DiagnosticsComment on above:Performed By: #### 927, 866, 70458, 66929, 5363, 1759, 7600 #### [facility] of [address], [address] [place] [address] [employer] Repairman: Brian Alvares MDBilirubin [Mass/Vol]0.3 mg/dLNormal0.2-1.2 Quest DiagnosticsComment on above:Performed By: #### 927, 866, 93072, 32378, 5363, 1759, 7600 #### [facility] of [address], [address] [place] [address] [employer] Repairman: Brian Alvares MDBUN/CREATININE RATIOSEE NOTE:Normal6-22Quest DiagnosticsComment on above:Result Comment: Not Reported: BUN and Creatinine are within reference range.Performed By: #### 927, 866, 94285, 23316, 5363, 1759, 7600 #### [facility] of [address], [address] [place] [address] [employer] Repairman: Brian Alvares MDCalcium [Mass/Vol]9.1 mg/dLNormal8.6-10.3Quest DiagnosticsComment on above:Performed By: #### 927, 866, 02774, 70677, 5363, 1759, 7600 #### [facility] [address], [address] [place] [address] [employer] Repairman: Brian Alvares MDChloride [Moles/Vol]104 mmol/QUdrkle61-017 Quest DiagnosticsComment on above:Performed By: #### 927, 866, 84003, 67296, 5363, 1759, 7600 #### [facility] of [address], [address] [place] [address] [employer] Repairman: Brian Alvares MDCO2 [Moles/Vol]30 mmol/MAujipj17-06Zblrf DiagnosticsComment on above:Performed By: #### 927, 866, 87222, 59239, 5363, 1759, 7600 #### [facility] of [place] [address], [address] [place] [address] [employer] Repairman: Brian MCCARTHYreatinine [Mass/Vol]0.82 mg/dLNormal0.70-1.30 Quest DiagnosticsComment on above:Performed By: #### 927, 866, 30179, 75719, 5363, 1759, 7600 #### [facility] [place] [address] [employer] Rep[employer]man: Brian Alvares MDGFR/1.73 sq M.predicted among non-blacks MDRD (S/P/Bld) [Vol rate/Area]102 mL/min/{1.73_m2}Normal> OR = 60[facility] Comment on above:Performed By: #### 927, 866, 79304, 66431, 5363, 175, 7600 #### [facility] [place] [address] [employer] Repairman: Brian Alvares MDGlobulin (S) [Mass/Vol]2.5 g/dLNormal1.9-3.7 Quest DiagnosticsComment on above:Performed By: #### 927, 866, 14294, 99533, 5363, 175, 7600 #### [facility] [place] [address] [employer] Repairman: Brian Alvares MDGlucose [Mass/Vol]92 mg/jSGzsgpt60-52Nuplk DiagnosticsComment on above:Result Comment: Fasting reference intervalPerformed By: #### 927, 866, 55570, 82945, 5363, 1759, 7600 #### [facility] [place] [address] [employer] Repairman: Brian Alvares MDPotassium [Moles/Vol]4.7 mmol/LNormal3.5-5.3 [facility] DiagnosticsComment on above:Performed By: #### 927, 866, 69393, 55194, 5363, 1759, 7600 #### [facility] of [place] [address] [employer] Rep[employer]man: Brian Alvares MDProtein [Mass/Vol]6.8 g/dLNormal6.1-8.1Quest DiagnosticsComment on above:Performed By: #### 927, 866, 57908, 61640, 5363, 1759, 7600 #### [facility] of [address], [address] [place] [address] T[employer] Repairman: Brian Alvares MDSodium [Moles/Vol]141 mmol/VXalidj983-931Qizkl DiagnosticsComment on above:Performed By: #### 927, 866, 81521, 30540, 5363, 1759, 7600 #### [facility] of [address], [address] [place] [address] Tire Repairman: Brian Alvares MDUrea nitrogen [Mass/Vol]12 mg/dLNormal7-25 Quest DiagnosticsComment on above:Performed By: #### 927, 866, 26615, 39821, 5363, 1759, 7600 #### [facility] of [place] [address] [employer] Repairman: Brian Alvares MDLIPID PANEL, STANDARD 29-62-3530Kkqqqbbnwko [Mass/Vol]142 mg/dLNormal<200Quest DiagnosticsComment on above:Order Comment: FASTING:YES FASTING: YESPerformed By: #### 927, 866, 30777, 49181, 5363, 1759, 7600 #### [facility] of [place] [address] [employer] Repairman: Brian Alvares MDCholesterol in HDL [Mass/Vol]49 mg/dLNormal> OR = 40Quest DiagnosticsComment on above:Order Comment: FASTING:YES FASTING: YESPerformed By: #### 927, 866, 84733, 55960, 5363, 1759, 7600 #### [facility] of [place] [address] [place] [address] T[employer] Repairman: Brian MCCARTHYholesterol in LDL [Mass/Vol]74 mg/dLNormal Quest [...] of LDL-C. Aman SS et al. CLARISA. 2013;310(08): 6025-9348 (http://education.Hytle/faq/FUJ020)Performed By: #### 927, 866, 32981, 01446, 5363, 1759, 7600 #### [facility] [place] [address] T[employer] Repairman: Brian MCCARTHYholesteroarely.total/Cholesterol in HDL [Mass ratio]2.9 {ratio}Normal<5.0Quest DiagnosticsComment on above:Order Comment: FASTING:YES FASTING: YESPerformed By: #### 927, 866, 90216, 38199, 5363, 1759, 7600 #### [facility] [place] [address] T[employer] Repairman: Brian DE DIOS HDL GOEBCBUVTSI43 mg/dL (calc)Normal<130 [facility] DiagnosticsComment on above:Order Comment: FASTING:YES FASTING: YESResult Comment: For patients with diabetes plus 1 major ASCVD risk factor, treating to a non-HDL-C goal of <100 mg/dL (LDL-C of <70 mg/dL) is considered a therapeutic option.Performed By: #### 927, 866, 19659, 54007, 5363, 1759, 7600 #### [facility] [place] [address] [employer] Repairman: Brian Alvares MDTriglyceride [Mass/Vol]111 mg/dLNormal<150 Quest DiagnosticsComment on above:Order Comment: FASTING:YES FASTING: YESPerformed By: #### 927, 866, 12443, 31368, 5363, 1759, 7600 #### [facility] [place] [address] T[employer] Repairman: Brian ASTUDILLO, [facility]40-42-6567PUZ, TOTAL0.26 ng/mL Normal< OR = 4.00Quest DiagnosticsComment [...] absence of disease.Performed By: #### 927, 866, 26844, , 5363, 175, 7600 #### [facility] [place] [address] T[employer] Repairman: Brian BROTHERS, [facility]43-95-6191Afro T4 [Mass/Vol]1.0 ng/dLNormal0.8-1.8Quest DiagnosticsComment on above:Performed By: #### 927, 866, 60121, , 5363, 175, 7600 #### [facility] [place] [address] T[employer] Repairman: Brian Alvares MDSKAGIT [facility] W/REFLEX TO [id number] W/REFLEX TO FT45.15 mIU/LHigh0.40-4.50Quest DiagnosticsComment on above:Performed By: #### 927, 866, 13916, , 5363, 175, 7600 #### [facility] [place] [address] T[employer] Repairman: Brian Alvares MDVITAMIN B12on 44-29-5437Etrclhcgt (Vitamin B12) [Mass/Vol]317 pg/hUAbmbfv359-7727Ohkcr DiagnosticsComment on above:Result Comment: Please Note: Although the reference range for vitamin B12 is 200-1100 pg/mL, it has been reported that between 5 and 10% of patients with values between 200 and 400 pg/mL may experience neuropsychiatric and hematologic abnormalities due to occult B12 deficiency; less than 1% of patients with values above 400 pg/mL will have symptoms.Performed By: #### 927, 866, 72291, 67768, 5363, 1759, 7600 #### [facility] [address] [facility], [address] [place] [address] T[employer] Repairman: Brian Alvares MDXR ABDOMEN 2 VIEWon 00-66-2564NT ABDOMEN 2 VIEWAbdomen CLINICAL HISTORY: Abdominal pain Supine and upright views of the abdomen. Normal bowel gas pattern. Retained stool in the distal colon. No apparent air- fluid level. There are clips in the right upper quadrant related to cholecystectomy. IMPRESSION: Distal colonic stool. No evidence for obstructionNormalNot AvailableXR LUMBAR SPINE 4+ VIEWS WITH FLEXION EXTENSIONon [id number] LUMBAR SPINE 4+ VIEWS WITH FLEXION EXTENSIONExam: [...] by the interpreting Radiologist.NormalNot AvailableCB AUTO DIFFon 46-63-2016Cffjuspmm (Bld) [#/Vol] 0.1 103/ulNormal0.0-0.1Wood County HospitalComment on above:Performed By: #### CBC #### [facility] [address] [place], [place] [address] Loc KarenBasophils/100 WBC (Bld)1.1 %Normal0.2-2.0[facility] Comment on above:Performed By: #### CBC #### [facility] [address] [place] [address] Loc KarenEosinophils (Bld) [#/Vol]0.2 103/ulNormal0.0-0.7The [place] Health CenterComment on above:Performed By: #### CBC #### [facility] [address] [place] [address] Loc KarenEosinophils/100 WBC (Bld)2.2 %Normal0.9-7.0The [facility] Comment on above:Performed By: #### CBC #### [facility] [address] [place] [address] Loc KarenErythrocyte distribution width (RBC) [Ratio]15.1 %Critically high 11.0-15.0The [facility] God Hospitalment on above:Performed By: #### CBC #### [facility] [address] [place] [address] Loc KarenHematocrit (Bld) [Volume fraction]37.2 %Critically low42.0-54.0The [place] CenterComment on above:Performed By: #### CBC #### [facility] [address] [place] [address] Loc KarenHemoglobin (Bld) [Mass/Vol]12.4 g/dLCritically low14.0-18.0The [facility] Hospitalment on above:Performed By: #### CBC #### [facility] [address] [place] [address] Loc KarenIG #0.04 10e3/ulCritically high0.00-0.03The [place] CenterComment on above:Performed By: #### CBC #### [facility] [address] [place] [address] Loc KarenIG %0.4 %Normal0.0-0.5The [place] CenterComment on above: Performed By: #### CBC #### [facility] [address] [place] [address] Loc KarenLymphocytes (Bld) [#/Vol]2.9 103/ulNormal1.2-3.8The [facility]eter HospitalComment on above:Performed By: #### CBC #### [facility] [address] [place] [address] Loc KarenLymphocytes/100 WBC (Bld)31.6 %Avfing58.5-60.0[facility] Comment on above:Performed By: #### CBC #### [facility] [address] [place] [address] Loc KarenMANUAL DIFF REQNONormalThe [facility] CenterComment on above: Performed By: #### CBC #### [facility] [address] [place] [address] Loc KarenMCH (RBC) [Entitic mass]27.0 ryNopuvi30.9-34.0[facility] Comment on above:Performed By: #### CBC #### [facility] [address] [place] [address] Loc KarenMCHC (RBC) [Mass/Vol]33.3 g/cMLrqjzs79.9-35.2[facility] Comment on above:Performed By: #### CBC #### [facility] [address] [place] [address] Loc KarenMCV (RBC) [Entitic vol]81.0 cJSdjdlz09.0-94.0[facility] Comment on above:Performed By: #### CBC #### [facility] [address] [place] [address] Loc KarenMonocytes (Bld) [#/Vol]0.6 103/ulNormal0.3-0.8ThOhioHealth Van [facility] Comment on above:Performed By: #### CBC #### [facility] [address] [place] [address] Loc KarenMonocytes/100 WBC (Bld)7.0 %Normal1.7-12.0[facility] Comment on above:Performed By: #### CBC #### [facility] [address] [place] [address] Loc KarenNeutrophils (Bld) [#/Vol]5.3 103/ulNormal1.4-6.5The [place] CenterComment on above:Performed By: #### CBC #### [facility] [address] [place], [place] [address] Loc KarenNeutrophils/100 WBC (Bld)57.7 %Romlzs68.0-75.0[facility] Comment on above:Performed By: #### CBC #### [facility] [address] [place], [place] [id number] Loc KarenPlatelet mean volume (Bld) [Entitic vol]9.7 fLNormal9.5-13.5The [place] CenterComment on above:Performed By: #### CBC #### [facility] [address] [place] [address] Loc KarenPlatelets (Bld) [#/Vol]241 103/bcFtvaym752-100Nor [facility] Comment on above:Performed By: #### CBC #### [facility] [address] [place] [address] Loc KarenRBC (Bld) [#/Vol]4.59 106/ulCritically low4.70-6.10The [facility] CenterComment on above:Performed By: #### CBC #### [facility] [address] [place] [address] Loc KarenWBC (Bld) [#/Vol]9.2 103/ulNormal4.0-11.0[facility] Comment on above:Performed By: #### CBC #### [facility] [address] [place] [address] Loc KarenCTA CHEST WO W CONon 55-16-9722DQY CHEST WO W CONEXAMINATION: CTA CHEST WO [...] and bilateral hilar lymph nodes, likely reactive.NormalThe [facility] CenterD-DIMERon 39-07-7716V-DIMER COMMENTS SEE BELOWNormalThe [facility] CenterComment on above:Result Comment: Increases in D-Dimer [...] stress, and generalizd hospitalization.Performed By: #### DDIM ####[facility] [address] [place], [place] [address]Gerken KarenFibrin D-dimer FEU IA (Bld) [Mass/Vol]0.71 ug/mLCritically high0.19-0.50The [facility] on above:Result Comment: test repeated, critical value verifiedPerformed By: #### DDIM ####[facility] [address] [place], [place] [address]Gerken KarenPROF 14(COMP METB)on 78-83-7856Thdxvpi [Mass/Vol]3.6 g/dLNormal3.5-5.0The [facility] Hospitalment on above:Performed By: #### CMP, TROP ####[facility] [address] [place] [address]Gerken KarenAlbumin/Globulin [Mass ratio]1.0 {ratio} NormalThe [facility] on above:Performed By: #### CMP, TROP ####[facility] [address] [place] [address]Gerken KarenALP [Catalytic activity/Vol]84 U/RZxzrjm71-344Std Jordan HospitalComment on above:Performed By: #### CMP, TROP ####[facility] T[address] [place], [place] [address]Zofjon KarenALT [Catalytic activity/Vol]25 U/L Mieetq56-78Bpw [facility] CenterComment on above:Performed By: #### CMP, TROP ####[facility] Gaeapdsfxf[address] [place], [place] [address]Wxbutb KarenAnion gap [Moles/Vol]17.1 mmol/LNormalThe [facility] CenterComment on above:Performed By: #### CMP, TROP ####[facility] [address]ql[address] [place], [place] [address]Dalbuj KarenAST [Catalytic activity/Vol]19 U/L Clfqxi19-84Kwm [facility] CenterComment on above:Performed By: #### CMP, TROP ####[facility] F[address]ytksls[address] [place], [place] [address]Vddxyw KarenBilirubin Ql (U)0.5 mg/dLNormal0.2-1.3The [facility] CenterComment on above:Performed By: #### CMP, TROP ####[facility] W[address] [place], [place] [address]Ynakob KarenCalcium [Mass/Vol]8.8 mg/dLNormal 8.4-10.2The [facility] Hospitalment on above:Performed By: #### CMP, TROP ####[facility] Febungx[address] [place], [place] [address]Eolpps KarenChloride [Moles/Vol]104 mmol/CSxikdc11-200Geq [facility] CenterComment on above:Performed By: #### CMP, TROP ####[facility] Qehjabpdjf[address] [place], [place] [address]Yhgiux KarenCO2 [Moles/Vol]21.3 mmol/LCritically low22.0-30.0The [facility] CenterComment on above:Performed By: #### CMP, TROP ####[facility] Ab[address]fl[address]se[address] [place], [place] [address]Rplpne KarenCreatinine [Mass/Vol]1.02 mg/dLNormal0.66-1.25The [facility] CenterComment on above:Performed By: #### CMP, TROP ####[facility] [address] [place] [address]Gerken KarenEGFR-AF BELARUSIAN>60Normal>=60The [facility] CenterComment on above:Performed By: #### CMP, TROP ####[facility] [address] [place] [address]Gerken KarenEGFR-NON AF BELARUSIAN>60Normal>=60The [facility] CenterComment on above:Performed By: #### CMP, TROP ####[facility] [address] [place], [place] [address]Gerken KarenGlobulin (S) [Mass/Vol]3.6 g/dLNormalThe [facility] Comment on above:Performed By: #### CMP, TROP ####[facility] Qtss[address] [place], [place] [address]Gerken KarenGlucose [Mass/Vol]99 mg/oTDeugqi96-842Hhu [facility] CenterComment on above:Performed By: #### CMP, TROP ####[facility] Ig[address] [place] [address] KarenPotassium [Moles/Vol]3.4 mmol/LNormal 3.4-5.0The [facility] CenterComment on above:Performed By: #### CMP, TROP ####[facility] [address] [place], [place] [address]Gerken KarenProtein [Mass/Vol]7.2 g/dLNormal6.1-8.2The [facility] CenterComment on above:Performed By: #### CMP, TROP ####[facility] [address]od[address]we[address] [place], [place] [address]Gerken KarenSodium [Moles/Vol]139 mmol/LNormal 137-145The [facility] CenterComment on above:Performed By: #### CMP, TROP ####[facility] C[address] [place], [place] [address]Gerken KarenUrea nitrogen [Mass/Vol]19.0 mg/dLNormal9.0-20.0The [facility] Comment on above:Performed By: #### CMP, TROP ####[facility] [address] [place] [address]Gerken KarenUrea nitrogen/Creatinine [Mass ratio]18.6 mg/mgNoUniversity Hospitals Cleveland Medical CenterComment on above:Performed By: #### CMP, TROP ####[facility] [address]wrabts[address] [place] [address]Gerken KarenPROTIMEon 57-29-8020DIP Coag (PPP) [Relative time]1.05 {INR}NormalThe [facility] CenterComment on above:Performed By: #### PT, PTT #### [facility] [address] [address] Loc KarenPT Coag (PPP) [Time]10.9 sNormal9.0-11.6The [facility] CenterComment on above:Performed By: #### PT, PTT #### [facility] [address] [place] [address] Loc KarenPT Coag (PPP) [Time]PLEASE NOTE: NORMAL RANGE CHANGE 06-22-2014 DUE TO REAGENT LOT CHANGENoUniversity Hospitals Cleveland Medical CenterComment on above:Performed By: #### PT, PTT #### [facility] [address] [place] [address] Loc KarenPT Coag (PPP) [Time]SEE BELOWNoUniversity Hospitals Cleveland Medical CenterComment on above:Result Comment: DESIRED INR: 2.0 - 3.0 CONDITIONS NOT LISTED BELOW 2.5 - 3.5 FOR PROSTHETIC HEART VALVE REPLACEMENT 2.5 - 3.5 RECURRENT THROMBOSIS Performed By: #### PT, PTT #### [facility] [address] [address] Loc KarenPTTon 41-91-7624lHTF Coag (Bld) [Time]24.8 mZkjnhd56.3-36.2The [facility] CenterComment on above:Performed By: #### PT, PTT ####[facility] [address] [place] [address]Gerken KarenaPTT Coag (Bld) [Time]PLEASE NOTE: NORMAL RANGE CHANGE 08-29-2015 DUE TO REAGENT LOT CHANGEWyandot Memorial HospitalComment on above:Performed By: #### PT, PTT ####[facility] Dgntnn[address]fp[address] KarenTROPONIN - Ion 21-08-2945Wvyqtbxl I.cardiac [Mass/Vol]SEE BELOWNoUniversity Hospitals Cleveland Medical CenterComment on above:Result Comment: <0.034 ng/ml NEGATIVE 0.034- 0.119 INDETERMINATE 0.120 AMI CUT OFFPerformed By: #### CMP, TROP ####[facility] Hwiwipcixw[address] KarenTroponin I.cardiac [Mass/Vol]ng/mLNormal<=0.034[facility] HospitalComment on above: Performed By: #### CMP, TROP ####[facility] [address] [place], [place] [address]Gerken KarenCBC AUTO DIFFon 23-03-3593Jpsqvxvax (Bld) [#/Vol]0.1 103/ulNormal0.0-0.1[facility] County HospitalComment on above:Performed By: #### CBC #### [facility] [address] [place] [address] Loc KarenBasophils/100 WBC (Bld)1.2 %Normal0.2-2.0[facility] Comment on above:Performed By: #### CBC #### [facility] [address] [place] [address] Loc KarenEosinophils (Bld) [#/Vol]0.1 103/ulNormal0.0-0.7The [facility] CenterComment on above:Performed By: #### CBC #### [facility] [address] [place] [address] Loc KarenEosinophils/100 WBC (Bld)1.1 %Normal0.9-7.0The [facility] Comment on above:Performed By: #### CBC #### [facility] [address] [address] Loc KarenErythrocyte distribution width (RBC) [Ratio]14.8 %Lehsth39.0-15.0The [facility] CenterComment on above:Performed By: #### CBC #### [facility] [address] [place] [address] Loc KarenHematocrit (Bld) [Volume fraction]42.7 %Rjtpom59.0-54.0The [facility] CenterComment on above:Performed By: #### CBC #### [facility] [address] [place] [address] Loc KarenHemoglobin (Bld) [Mass/Vol]14.8 g/rAQugxqw41.0-18.0The [facility] CenterComment on above:Performed By: #### CBC #### [facility] [address] [place] [address] Loc KarenIG #0.05 10e3/ulCritically high0.00-0.03The [facility] CenterComment on above:Performed By: #### CBC #### [facility] [address] [place] [address] Loc KarenIG %0.4 %Normal0.0-0.5The [facility] CenterComment on above: Performed By: #### CBC #### [facility] [address] [place] [address] Loc KarenLymphocytes (Bld) [#/Vol]2.7 103/ulNormal1.2-3.8The [facility] CenterComment on above:Performed By: #### CBC #### [facility] [address] [place] [address] Loc KarenLymphocytes/100 WBC (Bld)23.1 %Sucyac42.5-60.0The [facility] Comment on above:Performed By: #### CBC #### [facility] [address] [place] [address] Loc KarenMANUAL DIFF REQNONormalThe [facility] CenterComment on above: Performed By: #### CBC #### [facility] [address] [place], [place] [address] Loc KarenMCH (RBC) [Entitic mass]27.1 ayBbntse50.9-34.0The [facility] Comment on above:Performed By: #### CBC #### [facility] [address] [place] [address] Loc KarenMCHC (RBC) [Mass/Vol]34.7 g/bWOccmfu56.9-35.2The [facility] Comment on above:Performed By: #### CBC #### [facility] [address] [place] [address] Loc KarenMCV (RBC) [Entitic vol]78.2 fLCritically low80.0-94.0The [facility] CenterComment on above:Performed By: #### CBC #### [facility] [address] [place] [address] Loc KarenMonocytes (Bld) [#/Vol]1.0 103/ulCritically high0.3-0.8The [facility] CenterComment on above:Performed By: #### CBC #### [facility] [address] [place] [address] Loc KarenMonocytes/100 WBC (Bld)8.4 %Normal1.7-12.0The [facility] Comment on above:Performed By: #### CBC #### [facility] [address] [place] [address] Loc KarenNeutrophils (Bld) [#/Vol]7.6 103/ulCritically high1.4-6.5The [facility] CenterComment on above:Performed By: #### CBC #### [facility] [address] [place] [address] Loc KarenNeutrophils/100 WBC (Bld)65.8 %Idpxte65.0-75.0The [facility] Comment on above:Performed By: #### CBC #### [facility] [address] [place] [address] Loc KarenPlatelet mean volume (Bld) [Entitic vol]9.3 fLCritically low9.5-13.5 The [place] HospitalComment on above:Performed By: #### CBC #### [facility] [address] [place], [place] [address] Loc KarenPlatelets (Bld) [#/Vol]285 103/sjEgakkt455-671QqrWood County Hospital Comment on above:Performed By: #### CBC #### [facility] [address] [place] [address] Loc KarenRBC (Bld) [#/Vol]5.46 106/ulNormal4.70-6.10The [facility] Comment on above:Performed By: #### CBC #### [facility] [address] [place] [address] Loc KarenWBC (Bld) [#/Vol]11.6 103/ulCritically high4.0-11.0The [facility] CenterComment on above:Performed By: #### CBC #### [facility] [address] [place] [address] Loc KarenPROF CHEM 8 (BAS METB)on 40-16-0279Quofa gap [Moles/Vol]20.8 mmol/L NormalWood County HospitalComment on above:Performed By: #### TROP, TSH, T4, BMP #### [facility] [address] [place] [address] Loc KarenCalcium [Mass/Vol]9.9 mg/dLNormal8.4-10.2[facility] Comment on above:Performed By: #### TROP, TSH, T4, BMP #### [facility] [address] [place] [address] Loc KarenChloride [Moles/Vol]102 mmol/YOxxgde39-376QudWood County Hospital Comment on above:Performed By: #### TROP, TSH, T4, BMP #### [facility] [address] [place] [address] Loc KarenCO2 [Moles/Vol]18.4 mmol/LCritically low22.0-30.0The [facility] CenterComment on above:Performed By: #### TROP, TSH, T4, BMP #### [facility] [address] [place] [address] Loc KarenCreatinine [Mass/Vol]1.50 mg/dLCritically high0.66-1.25The [facility]. [facility] Hospitalment on above:Performed By: #### TROP, TSH, T4, BMP #### [facility] [address] [place] [address] Loc KarenEGFR-AF MERVSKSY13 mL/min/1.38h7Jdmvfczgww low>=60The [facility] CenterComment on above:Performed By: #### TROP, TSH, T4, BMP #### [facility] [address] [place] [address] Loc KarenEGFR-NON AF YVKTIQEB00 mL/min/1.02c6Dsnxtqgbiw low>=60The [facility] CenterComment on above:Performed By: #### TROP, TSH, T4, BMP #### [facility] [address] [place] [address] Loc KarenGlucose [Mass/Vol]101 mg/kMWswpma93-901Seh [facility] CenterComment on above:Performed By: #### TROP, TSH, T4, BMP #### [facility] [address] [place] [address] Loc KarenPotassium [Moles/Vol]3.2 mmol/LCritically low3.4-5.0The [facility] God Hospitalment on above:Performed By: #### TROP, TSH, T4, BMP #### [facility] [address] [place] [address] Loc KarenSodium [Moles/Vol]138 mmol/ODwbxux876-303Vmw [facility] Comment on above:Performed By: #### TROP, TSH, T4, BMP #### [facility] [address] [place] [address] Loc KarenUrea nitrogen [Mass/Vol]26.0 mg/dLCritically high9.0-20.0The [facility] Hospitalment on above:Performed By: #### TROP, TSH, T4, BMP #### [facility] [address] [place], [place] [address] Loc KarenUrea nitrogen/Creatinine [Mass ratio]17.3 mg/mgNoUniversity Hospitals Cleveland Medical CenterComment on above:Performed By: #### TROP, TSH, T4, BMP #### [facility] [address] [place] [address] Loc OrrenT4on 10-54-4993S3 [Mass/Vol]7.40 ug/dLNormal5.53-11.00The [facility] CenterComment on above:Performed By: #### TROP, TSH, T4, BMP #### [facility] [address] [place] [address] KarenTROPONIN - Ion 00-04-4125Ucyxhbgs I.cardiac [Mass/Vol]ng/mLNormal <=0.034The [facility] CenterComment on above:Performed By: #### TROP, TSH, T4, BMP #### [facility] [address] [place], [place] [address]enTroponin I.cardiac [Mass/Vol]SEE [facility] Comment on above:Result Comment: <0.034 ng/ml NEGATIVE 0.034-0.119 INDETERMINATE 0.120 AMI CUT OFFPerformed By: #### TROP, TSH, T4, BMP #### [facility] [address] [place] [address] Loc KarenTSHon 36-55-4024OWX QnSEE [facility] HospitalComment on above:Result Comment: <0.34 UIU/ml HYPERTHYROID 0.34-5.60 UIU/ml EUTHYROID >5.60 UIU/ml HYPOTHYROIDPerformed By: #### TROP, TSH, T4, BMP #### [facility] [address] [place] [address] Qn11.107 uIU/mLCritically high0.470-4.680[facility] Comment on above:Performed By: #### TROP, TSH, T4, BMP #### [facility] [address] [place] [address] Loc KarenXR CHEST 2 Von 34-62-3463EL CHEST 2 VEXAM:XR CHEST 2 V 12/04/2019 INDICATION: SHORTNESS OF BREATH COMPARISON: None. TECHNIQUE: PA and lateral chest radiographs. FINDINGS: The cardiomediastinal contour is within normal limits. There is chronic bronchial wall thickening. No focal consolidative opacity. No pleural effusion. No acute abnormalities of the visualized osseous structures. IMPRESSION: Chronic bronchial wall thickening is likely related to sequela of COPD. No focal consolidative opacity.NormalWood County HospitalXR CINERADIOGRAPHYon 87-54-1144KO JZZKSCTMKCGZRWA2991 [place] [address] Patient: OLE STEPHENS. Exam Date: 12/17/2018 : 1965 Gender:M Ordering : DR CARLOS ENRIQUE MAGUIRE M.D. Admission #: [id number] Family : Order #: [id number] CLICK HERE TO VIEW EXAM RADIOLOGY REPORT [...] by: Ana Benson M.D. on 12/17/2018 at 14:01[facility] HospitalXR UPPER GI W AIR KUBon 93-07-4558LY UPPER GI W AIR [address] [place] [address] Patient: OLE STEPHENS. Exam Date: 12/17/2018 : 1965 Gender:M Ordering : DR CARLOS ENRIQUE MAGUIRE M.D. Admission #: [id number] Family : Order #: [id number] CLICK HERE TO VIEW EXAM RADIOLOGY REPORT [...] by: Ana Benson M.D. on 12/17/2018 at 14:01[facility] Vital Signs Date TimeVital SignValuePerforming BdachlxezKhzjnuey74-64-5709 09:21-0500Body oqqcyn977.3 cmTimothy Steele DO Work Phone: [facility]ecanetC[facility] CenterGdahufmopi92-63-6996 09:21-0500Body mass index (BMI) [Ratio]18.75 kg/w0Sfczvdd Steele DO Work Phone: [facility]etC[facility] Medical CenterLhgvwpvnqz78-22-8983 09:21-0500Body temperature 98.8 [degF]Jean Pierre Steele DO Work Phone: [employer]Carl[employer] Metmdaxpph56-72-6369 09:21-0500Body vnthro29.61 kgTimothy Steele DO Work Phone: [employer] Jhrmshfhao58-10-1062 09:21-0500Diastolic blood mm[Hg]Jean Pierre Steele DO Work Phone: [employer] Mngymzgokz06-00-6091 09:21-0500Heart rate76 /min Jean Pierre Steele DO Work Phone: [employer] Cjrudzoejr45-65-6121 09:21-2474TwD9% (BldA) [Mass fraction]99 %Jean Pierre Steele DO Work Phone: [employer] Ivdimypahm78-74-7524 09:21-0500Systolic blood cxsuzmsr246 mm[Hg]Jean Pierre Steele DO Work Phone: [facility] HospitalDpubcmkavm62-27-9729 09:11-0500Body mlaeqd583.3 cmAangi Salgado MD Work Phone: [facility] HospitalFmkbmnypwf78-71-4259 09:11-0500Body mass index (BMI) [Ratio]18.61 kg/i4DbpsdmOlena Salgado MD Work Phone: [facility] HospitalXlkyltxmzo93-62-4096 09:11-0500Body .15 kgOlena Salgado MD Work Phone: [facility] HospitalCaviqrjwrf61-70-0102 09:11-0500Diastolic blood rayrrmil58 mm[Hg]Olena Salgado MD Work Phone: [facility] HospitalZnyncqparj26-65-4710 09:11-0500Systolic blood bdcpjudg702 mm[Hg]Olena Salgado MD Work Phone: 1(851)[facility]-5282[facility] HospitalEfvalcrfkd54-03-0563 08:12-0400Body tncarb088.3 cmTimothy Steele DO Work Phone: [facility] HospitalZubiijtwxf21-69-7404 08:12-0400Body mass index (BMI) [Ratio]16.57 kg/r1Nvzkrlo Steele DO Work Phone: 1(841)[facility] [place], [place] [address]Guakbngcvz88-17-6431 08:12-0400Body temperature 97.5 [degF]Jean Pierre Steele DO Work Phone: [phone] [place], [place] [address]Secdpccyud97-53-4204 08:12-0400Body .89 kgTimothy Steele DO Work Phone: 1([phone] [place], [place] [address]Ccdzzxlzbt95-95-5228 08:12-0400Diastolic blood mm[Hg]Jean Pierre Steele DO Work Phone: 1(167)[facility] [place], [place] [address]Nvdkixtvqt89-61-1370 08:12-0400Heart rate68 /min Jean Pierre Steele DO Work Phone: 1(063)[facility]-0987[facility] HospitalHobkvasegn58-26-1912 08:12-7061PgC5% (BldA) [Mass fraction]99 %Jean Pierre Steele DO Work Phone: 1(892)625-[address] [place] [address]-22-2025 08:12-0400Systolic blood qhpvcvix826 mm[Hg]Jean Pierre Galo DO Work Phone: noVA Azrxakobac92-52-7124 10:37-0400Diastolic blood rvhoxilp15 mm[Hg]Gabi Verhoff PA-C Work Phone: [facility] MutualinkQimtph52-52-0900 10:37-0400Heart rate 66 /minMegan Verhoff PA-C Work Phone: [facility] MutualinkMywbpm77-67-3931 10:37-0400 Respiratory rate18 /minMegan Verhoff PA-C Work Phone: [facility] MutualinkGnsiqk36-65-6632 10:37-3450ZtC2% (BldA) [Mass fraction]100 %Gabi Verhoff PA-C Work Phone: [facility] [employer] Dwpuyw07-51-1495 10:37-0400Systolic blood yzadjngm297 mm[Hg]Gabi Verhoff PA-C Work Phone: [facility] [employer] Extlqb93-06-0816 08:55-0400Body wzuqkk131.3 cmJelb Aguirreoll LOCATION DIRECTOR-TENNIS BALL COVER CEMENTER Work Phone: [facility] [employer] Gdlspb51-05-3905 08:55-0400Body mass index (BMI) [Ratio]16.86 kg/d1Tcgzfrh Ortiz LOCATION DIRECTOR-TENNIS BALL COVER CEMENTER Work Phone: [facility] [employer] Bvimrw74-45-3725 08:55-0400Body jlkyqh98.8 kgMonica Aguirreoll LOCATION DIRECTOR-TENNIS BALL COVER CEMENTER Work Phone: [facility] Hfitxr20-67-7866 08:55-0400Diastolic blood usstxlka34 mm[Hg]Monica Angel LOCATION DIRECTOR-TENNIS BALL COVER CEMENTER Work Phone: [facility]10-07-2025 08:55-0400Heart rate 60 /minAyderic Ortiz LOCATION DIRECTOR-TENNIS BALL COVER CEMENTER Work Phone: [facility]10-07-2025 08:55-0400Systolic blood pnapddzz743 mm[Hg]Monica Ortiz LOCATION DIRECTOR-TENNIS BALL COVER CEMENTER Work Phone: [facility]09-26-2025 11:15-0400Body .26 cmDacornelius Maguire II Work Phone: 1(686)[address]09-26-2025 11:15-0400 Body mass index (BMI) [Ratio]16.1 kg/n4Ughctk Maguire II Work Phone: 1(644)[address]09-26-2025 11:15-0400 Body cwgwtdbnizx73.3 [degF]Carlos Enrique Maguire II Work Phone: 1(866)[address] [place], [place] [address]9-26-2025 11:15-0400 Body xeatgt74.49 kgDacornelius Maguire II Work Phone: 1(323)[address]09-26-2025 11:15-0400 Diastolic blood zwjukdbj87 mm[Hg]Carlos Enrique Maguire II Work Phone: 1(501)[address] [place], [place] [address]40[address]9-26-2025 11:15-0400 Heart rate54 /Rhiannon Maguire II Work Phone: 1(422)[address] [place], [place] 940[address]9-26-2025 11:15-0400 Respiratory rate18 /Rhiannon Maguire II Work Phone: 1(576)[address] [place], [place] [address]40[address]9-26-2025 11:15-0400 SaO2% (BldA) [Mass fraction]99 %Carlos Enrique Maguire II Work Phone: 1(218)[address]09-26-2025 11:15-0400 Systolic blood kpahrwoq752 mm[Hg]Carlos Enrique Maguire II Work Phone: 1(498)[address] [place], [place] [address]9-17-2025 11:32-0400 Body .3 Bc Morrell DISTRICT ENGINEER Work Phone: [facility] HospitalPipaeqxbtv61-31-0068 11:32-0400Body mass index (BMI) [Ratio]16.69 kg/k0PcrexuHaley Morrell DISTRICT ENGINEER Work Phone: 1(419)483-[address] [place], [place] [address]Pwcuclmrdh63-95-3191 11:32-0400Body cbulia27.26 kgShmayrmoses Morrell DISTRICT ENGINEER Work Phone: [facility] HospitalHmnukceuyu99-05-9773 11:32-0400Diastolic blood mm[Hg]Haleyaidan Morrell DISTRICT ENGINEER Work Phone: [facility] HospitalQridjgzcpe37-96-4817 11:32-0400Heart rate80 /min Haley Morrell DISTRICT ENGINEER Work Phone: 1(869)817-[address] [place], [place] [address]Igjshnninv16-01-3418 11:32-0400Respiratory rate16 /minSherri Hartland DISTRICT ENGINEER Work Phone: 1(443)858-[address] [place], [place] [address]Efztbthhrf73-12-2687 11:32-0678JnV9% (BldA) [Mass fraction]98 %Haley Morrell DISTRICT ENGINEER Work Phone: [facility] HospitalSauzmxuvsj18-37-2042 11:32-0400Systolic blood mm[Hg]Haley Morrell DISTRICT ENGINEER Work Phone: 1(646)855-[address] [place], [place] [address]Mxqommjqcd41-79-5600 15:49-0400Body ffkgik757.3 cmSmarlene Reynavely DISTRICT ENGINEER Work Phone: 1(605)179-[address] [place], [place] [address]Xnjmcmgqcg07-91-6202 15:49-0400Body mass index (BMI) [Ratio]16.83 kg/b9PnydczHaley Reynavely DISTRICT ENGINEER Work Phone: [facility] HospitalJtggwuqfuc78-79-3406 15:49-0400Body qmirrv36.71 kgShveronica Reynavely DISTRICT ENGINEER Work Phone: 1(368)783-[address] [place], [place] [address]Ewuwzjtcrt21-03-1551 15:49-0400Diastolic blood jzjyamij55 mm[Hg]Haley Morrell DISTRICT ENGINEER Work Phone: 1(866)143-[address] [place], [place] [address]Snrtykqvup09-25-5620 15:49-0400Heart rate84 /min Haley Morrell DISTRICT ENGINEER Work Phone: 1(717)708-[address] [place], [place] [address]Mbxszzmpjy03-34-2437 15:49-0400Respiratory rate17 /minSri Ahsan DISTRICT ENGINEER Work Phone: [facility] HospitalDjmeaurpqz70-02-2699 15:49-0336EuF1% (BldA) [Mass fraction]96 %Haley Morrell NP Work Phone: [facility] HospitalQdgnrnpqfj34-95-4696 15:49-0400Systolic blood pvfvhabn231 mm[Hg]Haley Morrell DISTRICT ENGINEER Work Phone: [facility] HospitalAxlokvknnw60-96-1110 10:12-0400Body glhicd649.26 cmDacornelius Maguire II Work Phone: 1(333)[address]09-09-2025 10:12-0400 Body mass index (BMI) [Ratio]16.2 kg/c5Aftdkdcornelius Maguire II Work Phone: 1(997)[address]09-09-2025 10:12-0400 Body jrkakfiqixm11 [degF]Carlos Enrique Maguire II Work Phone: 1(857)[address]09-09-2025 10:12-0400 Body matuqk21.95 kgDacornelius Maguire II Work Phone: 1(261)[address]09-09-2025 10:12-0400 Diastolic blood mm[Hg]Carlos Enrique Maguire II Work Phone: 1(961)371-[address] [place], [place] 1002909-09-2025 10:12-0400 Heart rate75 /Rhiannon Maguire II Work Phone: 1(611)[address]154 [address]09-09-2025 10:12-0400 Respiratory rate18 /Rhiannon Maguire II Work Phone: 1(174)702-[address] [place], [place] 1002909-09-2025 10:12-0400 SaO2% (BldA) [Mass fraction]99 %Carlos Enrique Maguire II Work Phone: 1(135)198-[address] [place], [place] 1002909-09-2025 10:12-0400 Systolic blood igjzdetf433 mm[Hg]Carlos Enrique Maguire II Work Phone: 1(272)[address]09-03-2025 12:55-0400 Body .3 cmMebryce PATRICIO-C Work Phone: [facility]09-03-2025 12:55-0400Body mass index (BMI) [Ratio]15.8 kg/y6Mknwfbryce Wardff PA-C Work Phone: [facility]09-03-2025 12:55-0400Body uzoutp99.53 kgMegan Verhoff PA-C Work Phone: [facility]09-03-2025 12:55-0400Diastolic blood gxxlyabo73 mm[Hg]Gabi Verhoff PA-C Work Phone: [facility]09-03-2025 12:55-0400Heart rate 100 /minMegan Verhoff PA-C Work Phone: [facility]09-03-2025 12:55-0400 Respiratory rate18 /minMegan Verhoff PA-C Work Phone: [facility]09-03-2025 12:55-3143YiS9% (BldA) [Mass fraction]100 %Gabi Verhoff PA-C Work Phone: [facility]09-03-2025 12:55-0400Systolic blood brtdfjux493 mm[Hg]Gabi Verhoff PA-C Work Phone: [facility]09-02-2025 09:08-0400Body .26 cmDaanthonyelisabeth Maguire II Work Phone: [facility]09-02-2025 09:08-0400 Body mass index (BMI) [Ratio]16.7 kg/z5Wjlami Maguire II Work Phone: [facility]09-02-2025 09:08-0400 Body yhhrajcixrn56.2 [degF]Carlos Enrique Maguire II Work Phone: [facility]09-02-2025 09:08-0400 Body afaiwf49.31 kgDacornelius Maguire II Work Phone: [facility]09-02-2025 09:08-0400 Diastolic blood kvxesnkj03 mm[Hg]Carlos Enrique Maguire II Work Phone: 1(419)483-[address] [place], [place] 1002909-02-2025 09:08-0400 Heart rate75 /Rhiannon Maguire II Work Phone: 1(457)707-[address] [place], [place] 8472309-02-2025 09:08-0400 Respiratory rate16 /Rhiannon Maguire II Work Phone: 1(605)245-[address] [place], [place] [address]472309-02-2025 09:08-0400 SaO2% (BldA) [Mass fraction]99 %Carlos Enrique Maguire II Work Phone: 1(930)730-[address] [place], [place] [address]472309-02-2025 09:08-0400 Systolic blood mm[Hg]Carlos Enrique Maguire II Work Phone: 1(390)692-[address] [place], [place] 1002908-20-2025 10:35-0400 Body kagixc174.3 cmSmarlene Morrell DISTRICT ENGINEER Work Phone: [facility] HospitalLpfwtjqqsd87-48-3352 10:35-0400Body mass index (BMI) [Ratio]16.69 kg/p0ZhhglyHaley Morrell DISTRICT ENGINEER Work Phone: [facility] HospitalJscfxslqrz53-53-1355 10:35-0400Body karhxm26.26 kgHaley Morrell DISTRICT ENGINEER Work Phone: [facility] HospitalWghkumharh95-97-7533 10:35-0400Diastolic blood ycuvqorx61 mm[Hg]Haley Morrell DISTRICT ENGINEER Work Phone: [facility] HospitalLpmehxiowu06-67-5039 10:35-0400Heart rate55 /min Haley Morrell DISTRICT ENGINEER Work Phone: [facility] HospitalFvgvafevfv05-03-4691 10:35-0400Respiratory rate17 /minSmarlene Morrell DISTRICT ENGINEER Work Phone: [facility] HospitalOrpbusrboh23-45-5742 10:35-2272JiT1% (BldA) [Mass fraction]99 %Haley Morrell DISTRICT ENGINEER Work Phone: [facility] HospitalXkedfqlnuj23-05-7093 10:35-0400Systolic blood vjuvkvgf836 mm[Hg]Haley Morrell DISTRICT ENGINEER Work Phone: [facility] HospitalRbigtsvbjj02-67-0178 09:49-0400Body ewzsvc500.26 cmDacornelius Maguire II Work Phone: [facility]08-13-2025 09:49-0400 Body mass index (BMI) [Ratio]16.7 kg/g9Rlazcrcornelius Maguire II Work Phone: [facility]08-13-2025 09:49-0400 Body adayucfqmtq29.9 [degF]Carlos Enrique Maguire II Work Phone: 1(631)875-[address] [place], [place] 1002908-13-2025 09:49-0400 Body jqyrgk27.25 kgDacornelius Maguire II Work Phone: 1(906)731-[address] [place], [place] 1002908-13-2025 09:49-0400 Diastolic blood jmrafnsw79 mm[Hg]Carlos Enrique Maguire II Work Phone: 1(878)[address]08-13-2025 09:49-0400 Heart rate58 /Rhiannon Maguire II Work Phone: 1(394)149-[address] [place], [place] 1002908-13-2025 09:49-0400 Respiratory rate14 /Rhiannon Maguire II Work Phone: 1(539)719-[address] [place], [place] 1002908-13-2025 09:49-0400 SaO2% (BldA) [Mass fraction]99 %Carlos Enrique Maguire II Work Phone: 1(920)213-[address] [place], [place] 1002908-13-2025 09:49-0400 Systolic blood axiatvlc365 mm[Hg]Carlos Enrique Maguire II Work Phone: 1(561)826-[facility]07-23-2025 08:50-0400 Diastolic blood oxzdrllb84 mm[Hg]Gabi Verhoff PA-C Work Phone: [facility] HospitalROK[employer]07-23-2025 08:50-0400Heart rate 51 /minMegan Verhoff PA-C Work Phone: [facility]07-23-2025 08:50-0400 Respiratory rate18 /minMegan Verhoff PA-C Work Phone: [facility]07-23-2025 08:50-7978XbN2% (BldA) [Mass fraction]100 %Gabi Verhoff PA-C Work Phone: [facility] [employer] Lwockk41-80-0284 08:50-0400Systolic blood veapbvub567 mm[Hg]Gabi Verhoff PA-C Work Phone: [facility] [employer] Fyshpq28-74-6832 12:29-0400Body rdxivc181.3 cmMegan Verhoff PA-C Work Phone: [facility] [employer] Iodyur42-89-3666 12:29-0400Body mass index (BMI) [Ratio]16.54 kg/c9Ajdch Verhoff PA-C Work Phone: [facility]06-11-2025 12:29-0400Body cnhvix36.8 kgMegan Verhoff PA-C Work Phone: [facility] [employer] Gecpkq79-40-9771 12:29-0400Diastolic blood mm[Hg]Gabi Verhoff PA-C Work Phone: [facility] [employer] Ivemqf04-01-8357 12:29-0400Heart rate 59 /minMegan Verhoff PA-C Work Phone: [facility]06-11-2025 12:29-0400 Respiratory rate18 /minMegan Verhoff PA-C Work Phone: [facility] [employer] Dbmyoo43-34-5425 12:29-5737MlW4% (BldA) [Mass fraction]100 %Gabi Verhoff PA-C Work Phone: [facility] [employer] Rllmao48-97-7398 12:29-0400Systolic blood mgecsavs461 mm[Hg]Gabi Verhoff PA-C Work Phone: [facility]05-27-2025 10:11-0400Body cioodo168.3 cmSherri Hartland DISTRICT ENGINEER Work Phone: [facility] HospitalLbywcegiza81-03-3443 10:11-0400Body mass index (BMI) [Ratio]16.89 kg/v6WrudylHaley Morrell DISTRICT ENGINEER Work Phone: [facility] HospitalYrktlqdjep28-42-4958 10:11-0400Body .89 kgHaley Morrell DISTRICT ENGINEER Work Phone: [facility] HospitalPudadiyiog89-30-9134 10:11-0400Diastolic blood ogonmkfu17 mm[Hg]Haley Morrell DISTRICT ENGINEER Work Phone: [facility] HospitalKyivoxadot19-06-6836 10:11-0400Heart rate54 /min Haley Morrell DISTRICT ENGINEER Work Phone: [facility] HospitalXkukvlofam04-71-6504 10:11-0400Respiratory rate16 /minSmarlene Morrell DISTRICT ENGINEER Work Phone: [phone] HospitalSazrggwong03-28-6095 10:11-1143LxB1% (BldA) [Mass fraction]98 %Haley Morrell DISTRICT ENGINEER Work Phone: [facility] HospitalIkyzlunzry16-11-6986 10:11-0400Systolic blood dgylbjcw498 mm[Hg]Haley Morrell DISTRICT ENGINEER Work Phone: [facility] HospitalWhfhfgbkjy32-92-5656 08:38-0400Body fhjgun161.3 cmKirbyen Hemmer PA Work Phone: [phone] HospitalKrwuerrolw53-80-9241 08:38-0400Body mass index (BMI) [Ratio]17.1 kg/f6Dkgal Hemmer PA Work Phone: [phone] HospitalIazsiwioez60-13-9536 08:38-0400Body temperature 97.3 [degF]Dorian Hemmer PA Work Phone: [phone] HospitalYkmpggjups25-08-2453 08:38-0400Body ppdnis68.53 kgDorian Hemmer PA Work Phone: [facility] HospitalZvxroqozbc02-87-3805 08:38-0400Diastolic blood kguhclnu34 mm[Hg]Dorian Hemmer PA Work Phone: [facility] HospitalLooiuneour00-70-6949 08:38-0400Heart rate54 /min Dorian Hemmer PA Work Phone: [facility] HospitalKudqlhgrhn98-00-7572 08:38-0400Respiratory rate16 /minKirbykathryn Arellanoclay PA Work Phone: [facility] CenterTsnsnpbgmj26-89-5553 08:38-5525XgI8% (BldA) [Mass fraction]98 %Dorian Arellanoclay PA Work Phone: [facility] CenterVgwuoccqal95-63-1899 08:38-0400Systolic blood yvysfzlu740 mm[Hg]Dorian Arellanoclay PA Work Phone: [facility] CenterDrxojozuqh47-55-9827 11:05-0500Body fsuqed061.3 Bc Morrell DISTRICT ENGINEER Work Phone: [facility] CenterBjvrfscnvu89-81-5833 11:05-0500Body mass index (BMI) [Ratio]16.69 kg/w6DboapgHaley Morrell DISTRICT ENGINEER Work Phone: [facility] HospitalJxcprlbgyq16-61-8118 11:05-0500Body tzmoit09.26 kgHaley Morrell DISTRICT ENGINEER Work Phone: [facility] HospitalPyfudslkkb45-21-4765 11:05-0500Diastolic blood kbicvufj48 mm[Hg]Haley Morrell DISTRICT ENGINEER Work Phone: [facility] CenterNhkakcpoup87-33-5631 11:05-0500Heart rate56 /min Haley Morrell DISTRICT ENGINEER Work Phone: [facility] CenterCmkqutyiiu21-15-9496 11:05-0500Respiratory rate17 /minSmarlene Morrell DISTRICT ENGINEER Work Phone: [facility] CenterFgrfkaguqt60-46-5796 11:05-0214PxD6% (BldA) [Mass fraction]99 %Haley Morrell DISTRICT ENGINEER Work Phone: [facility] CenterAxobknyled21-71-3816 11:05-0500Systolic blood qagxkhws021 mm[Hg]Haley Morrell DISTRICT ENGINEER Work Phone: [facility] CenterCqhtzdtych14-97-8750 14:00-0500Body .3 Fatuma Kong DISTRICT ENGINEER Work Phone: [facility] CenterWslfpnzgrp63-43-7952 14:00-0500Body mass index (BMI) [Ratio]17.66 kg/m2Michael Kong DISTRICT ENGINEER Work Phone: [facility] HospitalMzbnimbniq99-00-1539 14:00-0500Body .25 kgMichael Kong DISTRICT ENGINEER Work Phone: [facility] HospitalIwemhtgiaw07-00-1458 14:00-0500Diastolic blood oyllnkkh60 mm[Hg]Michael Derek DISTRICT ENGINEER Work Phone: [facility] HospitalYsodkchgbh41-84-7552 14:00-0500Heart rate67 /min Michael Kong DISTRICT ENGINEER Work Phone: [facility] HospitalWtpfiqoicz18-32-7294 14:00-0500Respiratory rate17 /minMichael Kong DISTRICT ENGINEER Work Phone: [facility] HospitalBkbpavyfsm76-79-4719 14:00-6624GaU8% (BldA) [Mass fraction]99 %Michael Kong DISTRICT ENGINEER Work Phone: [facility] HospitalTsleqlyfun07-65-0518 14:00-0500Systolic blood oakrgmns245 mm[Hg]Michael Kong DISTRICT ENGINEER Work Phone: [facility] HospitalXowvckuoev84-89-7865 13:06-0500Body ilvmbv750.3 cmMichael Kong DISTRICT ENGINEER Work Phone: [facility] HospitalMczudefpjp74-22-8740 13:06-0500Body mass index (BMI) [Ratio]17.43 kg/m2Michael Kong DISTRICT ENGINEER Work Phone: [facility] HospitalLnpvhkfkvu31-52-6935 13:06-0500Body qjscub63.52 kgMichael Kong DISTRICT ENGINEER Work Phone: [facility] HospitalTkfkzkiyut20-76-5084 13:06-0500Diastolic blood mm[Hg]Michael Kong DISTRICT ENGINEER Work Phone: [facility] HospitalRwablgtsao80-41-8081 13:06-0500Heart rate56 /min Michael Kong DISTRICT ENGINEER Work Phone: [facility] HospitalFcvsspajaa06-14-5745 13:06-8154ApG2% (BldA) [Mass fraction]97 %Michael Kong DISTRICT ENGINEER Work Phone: [facility] HospitalSeyuxjvvma38-78-6842 13:06-0500Systolic blood mm[Hg]Michael Kong DISTRICT ENGINEER Work Phone: [facility]10-31-2023 13:25-0400Body lgmdau528.34 cmJosephine Castillo Other [employer] Other 10-31-2023 13:25-0400Body mass index (BMI) [Ratio]18.6 kg/e4FbtallsjJosephine Castillo Other [employer] Other 10-31-2023 13:25-0400Body .3 [degF] Josephine Castillo Other [employer] Other 10-31-2023 13:25-0400Body .51 kgJosephine Castillo Other [employer] Other 10-31-2023 13:25-0400Diastolic blood avdwsuqo51 mm[Hg] Josephine Castillo Other [employer] Other 10-31-2023 13:25-0400Respiratory rate18 /minJosephine Castillo Other [employer] Other 10-31-2023 13:25-3658GiU0% (BldA) [Mass fraction]96 % Josephine Castillo Other [employer] Other 10-31-2023 13:25-0400Systolic blood mm[Hg] Josephine Castillo Other [employer] Other Encounters Encounter DateEncounter TypeCare ProviderFacilityStart: 08-16-2025 End: 58-71-4598Hplbof flowsheetTimothy L Steele DO Work Phone: [facility] 230Start: 08-16-2025 End: 05-17-7435Rssdxl flowsheetTimothy L Steele DO Work Phone: [facility] 230Start: 08-16-2025 End: 90-00-0447nzgqmfykfhUUTAEST L CUTLERNot AvailableStart: 08-16-2025 End: 42-70-3473Lxfhha outpatient visit 40 minutesTimothy L Steele DO Work Phone: [facility] 230Comment on above: 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); Anxiety; Reactive depression (situational); Bipolar disorder, in partial remission, most recent episode mixed (HCC)Start: 08-14-2025 End: 09-78-9897Zsduaxgqs encounterTimothy L Steele DO Work Phone: [facility] 230Start: 08-11-2025 End: 05-32-8437Qwizrp outpatient new 45 minutesOlena Taveras MD Work Phone: [facility] AssociatesComment on above:Unintentional weight loss (Primary Dx); Nausea and vomiting, unspecified vomiting type; Abdominal pain of multiple sites; Chronic constipationStart: 08-11-2025 End: 16-23-2707hqthxibysrWUKUWW VARGAS VNot AvailableStart: 08-10-2025 End: 03-28-8699Dnlrrgdej department patient visitChildren's Hospital for Rehabilitationtart: 08-10-2025 End: 70-18-6177exfakqvjovKBTDT N VERHOFFProMedica Santa Paula Hospitaltart: 08-09-2025 End: 72-88-9219ogorhcbtuqOEYSP N VERHOFFProMedica Santa Paula Hospitaltart: 08-04-2025 End: 88-87-9844Hdiuhdsyy encounterTimothy L Steele DO Work Phone: [facility] 230Start: 07-28-2025 End: 20-82-8071Npiqzsebf encounterTimothy L Steele DO Work Phone: [facility] 230Comment on above: ReferralStart: 07-26-2025 End: 06-33-9053Wpmabk flowsheetTimothy L Steele DO Work Phone: [facility] 230Start: 07-26-2025 End: 15-62-9791Srozaz flowsheetTimothy L Steele DO Work Phone: [facility] 230Start: 07-26-2025 End: 65-37-6722Aaqiwcnee encounterTimothy L Steele DO Work Phone: [facility] 230Comment on above:Med RefillStart: 07-26-2025 End: 52-71-0256Lzmrlq outpatient visit 25 minutesTimothy L Steele DO Work Phone: [facility] 230Comment on above: Wellness examination (Primary Dx); Screening for colon cancer; Severe back pain; Anxiety; Encounter for screening for coronary artery disease; Smoker; Reactive depression (situational); Hypothyroidism, unspecified; Gastroesophageal reflux disease with esophagitis without hemorrhage; Gastric pain; Nausea and vomiting, unspecified vomiting type; Mixed hyperlipidemia; Unintentional weight loss; DermatitisStart: 07-26-2025 End: 02-90-9329Pjtwzmz encounter statusTimothy L Steele DO Work Phone: [facility] HealthcareStart: 07-26-2025 End: 08-80-4968ghlsesbixwUJQAVWA L CUTLERNot AvailableStart: 07-24-2025 End: 45-10-3539Dvkqsfwru encounterTimothy L Steele DO Work Phone: [facility] 230Comment on above: Appointment RequestStart: 07-21-2025 End: 92-62-6299Xtzvhhbbu encounterLeny Madsen [facility] - Pain Management ClinicStart: 07-19-2025 End: 89-98-7357Qphgnq outpatient visit 25 minutesGabi Omalley PA-C Work Phone: [facility] - Pain Management ClinicComment on above:Thoracic spine pain (Primary Dx); Thoracic spondylosis without myelopathy; Lumbar spondylosisStart: 07-19-2025 End: 11-08-0245xhauehjmiyRuzfmofpqrm AbdelazizFacility:[facility] Hospitaltart: 07-18-2025 End: 36-61-8703Bvqewidba encounterGustavo Castro DO Work Phone: [facility] General SurgeryStart: 07-13-2025 End: 17-30-1101ywxxojptbfDib Pat Phone Call Provider [address] [place] [address] - Pre AdmitStart: 07-12-2025 End: 53-07-6945Xymqoktqb encounterGabi Omalley PA-C Work Phone: [facility] - Pain Management ClinicStart: 07-12-2025 End: 36-78-5609cadaovatvxMNKEEast Liverpool City Hospitaltart: 07-11-2025 End: 35-13-3151Wlbbis outpatient new 30 minutesAydegrandview medical center Yesica Ortiz LOCATION DIRECTOR-T[employer] COVER CEMENTER Work Phone: [facility] ToledoComment on above: Weight loss (Primary Dx); Nausea and vomiting, unspecified vomiting type; Marijuana abuseStart: 07-11-2025 End: 14-11-7679wedwtlzornVZJVQGHMultiCare Health Ambulatory [facility] Start: 07-09-2025 End: 62-94-1125Wtxbuhmfj department patient visitEast Liverpool City Hospitaltart: 06-30-2025 End: 72-53-8664bqpwgooscoQoeovd Berry II Work Phone: [facility] Work Phone: Start: 06-30-2025 End: 84-12-9123Gtmilhn encounter Luis Fernando Corrigan LOCATION DIRECTOR-[facility] Work Phone: Start: 06-27-2025 End: 00-24-2144Hnhrxetdl encounterAnnaMercy Health St[facility] - Pain Management ClinicStart: 06-26-2025 End: 18-66-7481FgsijhZhyyvp M Shively DISTRICT ENGINEER Work Phone: NOJF [facility] MedinceComment on above:Situational mixed anxiety and depressive disorder ; AnxietyStart: 06-23-2025 End: 53-38-6363Bnorykknw encounterStacie Carranza [facility] - Pain Management ClinicStart: 06-23-2025 End: 92-20-6927umautrzsceUMVFMMP E HOGANProMedica Santa Paula Hospitaltart: 06-21-2025 End: 94-38-2837Lbetmt Bubba Morrell DISTRICT ENGINEER Work Phone: NOVN [facility] MedinceStart: 06-21-2025 End: 51-41-6846Lxraly Bubba Morrell DISTRICT ENGINEER Work Phone: [facility]OM[facility] MedinceStart: 06-21-2025 End: 72-83-1337Yduzsa outpatient visit 25 minutesHaley Morrell DISTRICT ENGINEER Work Phone: NOZM [facility] MedinceComment on above:Pre- operative clearance (Primary Dx)Start: 06-21-2025 End: 45-67-8663Dsqkevdrcgeg stateSmarlene Morrell DISTRICT ENGINEER Work Phone: [facility] Work Phone: Start: 06-21-2025 End: 00-36-0219vdvkkgbowxYKDCQR M SHIVELYNot AvailableStart: 06-16-2025 End: 01-90-5757Mvktgflnc encounterBarberton [facility] - Pain Management ClinicStart: 06-15-2025 End: 09-22-3519Ytrohy outpatient visit 25 minutesHaley Morrell DISTRICT ENGINEER Work Phone: [facility] MedinceComment on above:Weight loss (Primary Dx); Gastric pain; Nausea and vomiting, unspecified vomiting type; Dysphagia, unspecified type; Pericardial effusion (HHS-HCC); Skin infectionStart: 06-15-2025 End: 29-04-6392iryvbsdiahZLNTQU M SHIVELYNot AvailableStart: 06-15-2025 End: 02-99-3356Wdqxxs Bubba Morrell DISTRICT ENGINEER Work Phone: [facility] HospitalnceStart: 06-15-2025 End: 07-83-8385Nwrsfw Bubba Morrell DISTRICT ENGINEER Work Phone: NOLM [facility] MedinceStart: 06-13-2025 End: 97-47-4396numuqehtrnTakyko Berry II Work Phone: [facility] Work Phone: Start: 06-13-2025 End: 44-43-4624Lfaktix encounter procedureAnny Corrigan LOCATION DIRECTOR-[facility] Work Phone: Start: 06-08-2025 End: 78-83-2705MwhygzZnhnzq B Berry MD Work Phone: [facility] [address] [place] [address] MedicineComment on above:Anxiety Start: 06-07-2025 End: 20-10-5142Pfjbzb outpatient visit 15 minutesGabi Omalley PA-C Work Phone: [facility] - Pain Management ClinicComment on above:Thoracic spondylosis without myelopathy (Primary Dx) Start: 06-07-2025 End: 50-22-5413bejqwbndrzAYEKB N VERHOFFCleveland Clinictart: 06-06-2025 End: 22-84-6538hgxxxlvbnnOlxmww Berry II Work Phone: [facility] Work Phone: Start: 06-06-2025 End: 93-57-9564Cknmjwh encounter procedureJaqui Zeng LOCATION DIRECTOR-[facility] Work Phone: Start: 05-24-2025 End: 04-35-0096Mqwfmpdede Morrell DISTRICT ENGINEER Work Phone: [facility] MedinceStart: 05-24-2025 End: 34-44-6788Pfkxdi flowsheetSmarlene Morrell DISTRICT ENGINEER Work Phone: [facility] MedinceStart: 05-24-2025 End: 06-41-1553mskrayapwnCFNVBE M SHIVELYNot AvailableStart: 05-24-2025 End: 91-51-6879Dvlgrh outpatient visit 25 minutesHaley Morrell DISTRICT ENGINEER Work Phone: [facility] MedinceComment on above:SOB (shortness of breath) (Primary Dx); Nausea and vomiting, unspecified vomiting type; Muscle spasm; Abrasion; Gastroesophageal reflux disease with esophagitis without hemorrhage; Murmur, heartStart: 05-22-2025 End: 50-67-4034Stgpgyxum encounterCarlos Enrique Maguire MD Work Phone: [facility] MedicineComment on above: Thoracic spondylosis without myelopathy; Lumbar spondylosisStart: 05-20-2025 End: 04-03-9743XmrkzqVlqgsb B Berry MD Work Phone: [facility] MedinceComment on above:Anxiety; Severe back painStart: 05-19-2025 End: 60-51-2111uptzeqhikhPRSPHVJ E HOGANUniversity Hospitals [facility] HospitalStart: 05-17-2025 End: 69-92-4907bgilnayapwNicvuh Berry II Work Phone: [facility] Work Phone: Start: 05-17-2025 End: 73-25-0968Tgcmzpv encounter procedurePatricjaved Dill LOCATION DIRECTOR-[facility] Work Phone: Start: 64-48-1057mbiyxmrtbbIJBRG N VERHOFFProMedica Seminole HospitalStart: 04-26-2025 End: 38-55-5025Ataifh outpatient visit 25 minutesGabi Omalley PA-C Work Phone: [facility] - Pain Management ClinicComment on above:Thoracic spondylosis without myelopathy (Primary Dx); Lumbar spondylosisStart: 04-26-2025 End: 15-00-5912boojgxorbrAZKHE N [facility] Hospitaltart: 04-24-2025 End: 09-28-4160RcueclQkzcqy B Berry MD Work Phone: [facility] FM 100Comment on above:Severe back painStart: 04-17-2025 End: 68-45-9518HrkyabCnlomf B Berry MD Work Phone: [facility] CI FMComment on above:AnxietyStart: 04-08-2025 End: 63-27-5725EyqugzSvjkvt B Berry MD Work Phone: [facility] CI FMComment on above:Severe back painStart: 46-20-1546joyzniojxqFSYOH N [facility] HOSPITALFFUniversity [facility]als [facility] HospitalStart: 03-15-2025 End: 06-56-2363rborfbccymDOUFC M HEMMERNot AvailableStart: 03-15-2025 End: 76-93-0917Gwjiqbffm encounterCarlos Enrique Maguire MD Work Phone: [facility] CI FMStart: 03-15-2025 End: 71-37-7563stxkucthzuJMKQH N VERHOFFUniversity Hospitals Beachwood [facility] Center HospitalStart: 03-15-2025 End: 55-54-2450Ugxxhr outpatient new 45 minutesMebryce Omalley PA-C Work Phone: [facility] Pain Management ClinicComment on above:Thoracic spondylosis without myelopathy (Primary Dx); Lumbar spondylosisStart: 03-14-2025 End: 40-85-2385Qwyxhyzou encounterCarlos Enrique Maguire MD Work Phone: [facility] CI FMStart: 03-10-2025 End: 72-89-4833cpjadfqvgkDWRVAG M SHIVELYNot AvailableStart: 03-02-2025 [facility] PPGStart: 02-28-2025 End: 68-51-0650Ixpkjh flowsRoberth Morrell NP Work Phone: [facility] CI FMStart: 02-28-2025 End: 37-61-5043Saylow flowsRoberth Morrell DISTRICT ENGINEER Work Phone: [facility] CI FMStart: 02-28-2025 End: 24-51-9873Hvdcnriwf Zora Morrell NP Work Phone: [facility] CI FMStart: 02-28-2025 End: 03-92-1874tdidebxcdhUXNCTL M SHIVELYNot AvailableStart: 02-28-2025 End: 40-80-9649Zsofz of hemosiderin, quantHaley Morrell DISTRICT ENGINEER Work Phone: [facility] HealthcareStart: 02-28-2025 End: 74-21-3858Rzwcxbk encounter procedureSmarlene Morrell NP Work Phone: [facility] [...] Medicare annual wellness visit, subsequentStart: 02-28-2025 End: 65-04-4256lxxryavopcFYGEDZ M SHIVELYNot AvailableStart: 02-06-2025 End: 90-75-2961Schxoz Alvaro PATRICIO Work Phone: [facility] CI FMStart: 02-06-2025 End: 15-29-2918Cfjrgq Alvaro PATRICIO Work Phone: [facility] CI FMStart: 02-06-2025 End: 94-64-0185Zablsa outpatient visit 15 minutesDorian Corrigan Maria R PA Work Phone: [facility] CI FMComment on above:Nausea and vomiting, unspecified vomiting type (Primary Dx); Chronic idiopathic constipation; Acute bilateral low back pain without sciaticaStart: 02-06-2025 End: 00-77-7037dizzarfsahDZSID M HEMMERNot AvailableStart: 01-26-2025 End: 39-38-5086UnbtbgCwmzbc B Berry MD Work Phone: [facility] CI FMComment on above:Severe back painStart: 01-06-2025 End: 30-02-1114PwikuqKxdibz B Berry MD Work Phone: [facility] CI FMComment on above:Severe back painStart: 11-29-2024 End: 23-23-7751Djjzpn Bubba Morrell DISTRICT ENGINEER Work Phone: [facility] CI FMStart: 11-29-2024 End: 33-20-7484Ndrzgp Bubba Morrell DISTRICT ENGINEER Work Phone: [facility] CI FMStart: 11-29-2024 End: 71-66-8971Puptij outpatient visit 25 minutesHaley Morrell DISTRICT ENGINEER Work Phone: [facility] CI FMComment on above:Severe back pain; AnxietyStart: 11-29-2024 End: 30-96-7112oucqqoocadKKYNEC M SHIVELYNot AvailableStart: 11-28-2024 End: 35-17-2890Hddxxidxb department patient visitBucyrus Community Hospitaltart: 11-09-2024 End: 52-53-5669Pvfepk Pdero Kong DISTRICT ENGINEER Work Phone: [facility] CI FMStart: 11-09-2024 End: 13-99-6285Zeticq Pedro Kong DISTRICT ENGINEER Work Phone: [facility] CI FMStart: 11-09-2024 End: 99-07-2384Fxwlgb outpatient visit 25 minutesMichael Kong DISTRICT ENGINEER Work Phone: [facility] CI FMComment on above:Anxiety [...] recent episode mixed (CMS/HCC) Start: 11-09-2024 End: 97-59-0984bohsmlmjrhCGZEvelio Alaniz AvailableStart: 10-03-2024 End: 13-14-4242Lgqtjquoy encounterMarsha ROSARIO [facility] UCStart: 09-29-2024 End: 24-21-7532Jqqbjk Pedro Kong DISTRICT ENGINEER Work Phone: [facility] CI FMStart: 09-29-2024 End: 14-30-0367Zuhnwgdede Kong DISTRICT ENGINEER Work Phone: [facility] CI FMStart: 09-29-2024 End: 91-02-5741Pxyszr outpatient visit 25 minutesMichael Kong DISTRICT ENGINEER Work Phone: [facility] CI FMComment on above:Hospital discharge follow- up (Primary Dx); Degenerative disc disease, thoracic; Severe back pain; Muscle spasm; Reactive depression (situational) (CMS/HCC); Situational mixed anxiety and depressive disorder (CMS/HCC); Weight lossStart: 09-29-2024 End: 73-04-9555cthpgjomrzUIJEvelio Alaniz AvailableStart: 08-04-2023 End: 98-80-0332kcjoggsdhuCnojpnhe Rohrbacheedgar Other [facility] LUVHAN Other Start: 71-93-2465Ujvboh outpatient new 20 minutes Josephine RothmanPG Urgent Care ClydeStart: 12-05-2019 End: 45-96-1768Cxbfwqt encounter procedureDACORNELIUS MAGUIREFacility:E1Qjsep: 12-04-2019 End: 05-53-5192Towzokr encounter procedureDACORNELIUS MAGUIREFacility:D8Jdzed: 12-17-2018 End: 98-44-1878Iiwyuqq encounter procedureDANIELISABETH MAGUIREFacility:H1 Procedures DateProcedureProcedure DetailPerforming ClinicianStart: 81-38-5607Ldtcfwyu blood count with white cell differential, automatedTimtristen Bliss Teepix DO Work Phone: Start: 62-50-0059Wblqrpsntjfqu metabolic panelTimtristen Bliss Teepix DO Work Phone: Start: 47-03-9794Uecvj panelTimtristen Bliss Teepix DO Work Phone: Plan of Treatment DateCare ActivityDetailAuthorStart: 93-25-0702KSxW,Tdap and Td Vaccines (2 - Td or Tdap)DTaP,Tdap and Td Vaccines (2 - Td or Tdap)ProMencompass health rehabilitation [facility] Webroot SystemStart: 03-48-7448Dqrguqy ScreeningTobacco ScreeningCherrington Hospitalca [facility] SystemStart: 42-75-1965Vmlkjen ScreeningTobacco ScreeningCherrington Hospitalca Health SystemStart: 32-35-9211Srgkc BMI ScreeningAdult BMI ScreeningCherrington Hospitalca Health SystemStart: 83-63-6424Ydjbsjs ScreeningTobacco ScreeningProSalem City Hospitalca Health SystemStart: 04-63-3239Duowzqs ScreeningTobacco ScreeningProSalem City Hospitalca Health SystemStart: 17-95-9454Cskkv BMI ScreeningAdult BMI ScreeningCherrington Hospitalca Health SystemStart: 35-95-4647Zgdvsxw ScreeningTobacco ScreeningCherrington Hospitalca Health SystemStart: 61-44-3295Atuoy BMI ScreeningAdult BMI ScreeningCherrington Hospitalca [facility] SystemStart: 05-27-2026Medicare Annual Wellness (AWV)Medicare Annual Wellness (AWV)[facility] HealthcareStart: 10-17-2025 End: 50-11-5972Stauank encounter spkklqkbi46/13/2026 10:00 AM EST Office Visit NOMFlakito [facility] [address] [place] [address] SteeleJean Pierre mclaughlin L, DO [address] [place] [address] NOMFlakito [facility] 230 Start: 09-11-2025 End: 48-44-1817Pansjon encounter oapolcioz28/08/2025 9:00 AM EST Office [facility] [address] [place] [address] Olena Taveras MD [address] [place] [address] [facility] AssociatesStart: 09-04-2025 End: 23-72-3018Deqkjex encounter /01/2025 8:40 AM EST Office Visit [facility]OMFlakito [facility] [address] [place] [address] SteeleJean Pierre mclaughlin L, DO [address] [place] [address] [facility] 230 Start: 08-23-2025 End: 33-58-7690Ddsyxqz encounter jegtiookq92/19/2025 10:30 AM EST Office Visit NOMFlakito [facility] [address] [place] [address] Haley Morrell NP [address] [place] [address] [facility] HospitaleStart: 08-22-2025 End: 39-96-7174Imkzrnd encounter huospgzlu75/18/2025 8:00 AM EST Office Visit [facility] [address] [address] Zarina Holt, LOCATION DIRECTOR-TENNIS BALL COVER CEMENTER [address] [place] [address] [facility] Pain [facility] ClinicStart: 08-11-2025 End: 99-14-0012Lhmuadu encounter /07/2025 9:15 AM EST Consult [facility] [address] [facility] [address] [place] [address] Olena Taveras MD [address] [facility] [address] [place] [address] [facility] Surgical AssociatesStart: 08-10-2025 End: 75-35-5698Gwywpzn encounter cnuwyjsjo84/06/2025 7:15 AM EST Appointment [facility] MRI Imaging [address] [address] Gabi Omalley, MARK [address] [place] [address] [facility] MRI ImagingStart: 08-09-2025 End: 37-23-9831Zyzxxmsypinu / ancillary services emyaclrion01/05/2025 11:30 AM EST Ancillary Procedure [facility] [address] [place] [address] [facility] ImagingStart: 07-26-2025 End: 27-56-4390EZ Abdomen and Pelvis W contrast IVCT abdomen pelvis w IV contrast Imaging Routine Gastroesophageal reflux disease with esophagitis wit hout hemorrhage Gastric pain Nausea and vomiting, unspecified vomiting type Unintentional weight loss Expected: 07/26/2025, Expires: 07/26/2026[facility] Work Phone: Comment on above:Expected: 07/26/2025, Expires: 07/26/2026Start: 07-26-2025 End: 67-32-1737RZ Chest W contrast IVCT chest w IV contrast Imaging Routine Smoker Unintentional weight loss Expected: 07/26/2025, Expires: 07/26/2026[facility] HealthcareComment on above:Expected: 07/26/2025, Expires: 07/26/2026Start: 07-26-2025 End: 85-73-3770Wzmvyhk encounter bkpyumbkz26/22/2025 8:20 AM EDT Office Visit [facility] [address] [place] [address] Jean Pierre Galo, [address] [place] [address] [facility] 230Comment on above:ArrivedStart: 07-20-2025 End: 30-68-9965Txjtkjxyo to same day surgery kauwon3607/20/2025 11:00 AM EDT - 07/20/2025 11:45 AM EDT Surgery [facility] Surgery [address] [place] [address] Gustavo Castro, DO [address] [place] [address] ESOPHAGOGASTRODUODENOSCOPY DIAGNOSTIC [69327 (CPT )][facility] - SurgeryComment on above:ESOPHAGOGASTRODUODENOSCOPY DIAGNOSTIC [48494 (CPT )]Start: 07-20-2025 End: 48-90-8508Lgkzpjnihbf flx dx w/collj spec when pfrmdCOLONOSCOPY DIAGNOSTIC / SCREENING unintentional weight loss 07/20/2025 11:00 AM EDTFREMHAWTHORN CHIL[facility] Start: 07-20-2025 End: 11-99-3527Eoptcsrgxhhgocugkykdzvgkki transoral diagnostic ESOPHAGOGASTRODUODENOSCOPY DIAGNOSTIC unintentional weight loss 07/20/2025 11:00 AM EDTFLITTLE COMPANY OF MARY [facility] SURGERYStart: 35-71-9240Fgiltrerwp hospital visit by physician [facility] SurgeryStart: 07-19-2025 End: 63-32-4956WA Thoracic spine WO contrastMR thoracic spine without contrast Imaging Routine Thoracic spondylosis without myelopathy Thoracicspine pain Expected: 07/19/2025, Expires: 07/19/2026[facility] Work Phone: Comment on above:Expected: 07/19/2025, Expires: 07/19/2026Start: 07-19-2025 End: 48-65-9755Eryxkmd encounter owekqlgmq47/15/2025 10:45 AM EDT Office Visit [facility] [address] [place] [address] Gabi Omalley, MARK [address] [place], [place] [address] [facility] Pain Management ClinicStart: 07-17-2025 End: 74-08-9401Sdrpholaim yjcbxaepwijz44/13/2025 11:59 PM EDT Anesthesia Event [facility] Surgery [address] [place] [place] [address] Costa Brooke, DO [address] [place] [address] [facility] Surgery Start: 07-13-2025 End: 21-77-8245wakbobhzzd48/09/2025 1:50 PM EDT Support Visit [facility] - Pre Admit [address] [place] [address] [facility] - Pre AdmitStart: 07-11-2025 End: 40-27-3733Rvhczci encounter /07/2025 9:00 AM EDT Office Visit [facility] General Surgery [address] [place], [place] Monica Ortiz, LOCATION DIRECTOR-TENNIS BALL COVER CEMENTER [address] [place] [address] [facility] General SurgeryStart: 06-23-2025 End: 20-43-3440Ehukrkzkq to same day surgery jgcjch2806/23/2025 10:07 AM EDT - 06/23/2025 10:14 AM EDT Surgery [facility] - Pain Procedures [address] [place] [place] [address] Kota Petty MD [address] [place] [place] [address] INJECTION FACET JOINT Bilateral T 3/4, 4/5 [59992 (CPT )][facility] - Pain ProceduresComment on above:INJECTION FACET JOINT Bilateral T 3/4, 4/5 [31373 (CPT )]Start: 06-23-2025 End: 89-87-7505Blg dx/ther agt pvrt facet jt crv/thrc 1 levelINJECTION FACET JOINT Thoracic spondylosis without myelopathy 06/23/2025 10:07 AM EDTFREMONT PAINStart: 65-55-4827Acmhchwgqr hospital visit by ivynlzemz37/19/2025 10:07 AM EDT Hospital Encounter [facility] Pain Procedures [address] [place] [address] [place] [address] Kota Petty MD [address] [place] [address] [facility] - Pain ProceduresStart: 06-21-2025 End: 18-88-9364Vatvytu encounter vmmbydbxc28/17/2025 11:30 AM EDT Office Visit [facility] [place] [facility] [address] [place] [address] Haley Morrell NP [address] [place] [address] ArrivedNOMS [place] [facility] MedinceComment on above:ArrivedStart: 06-15-2025 End: 03-55-2175Bmvtjay encounter msoakmddh24/11/2025 4:00 PM EDT Office [facility] [facility] [address] [facility] [address] [place] [address] Haley Morrell NP [address] [facility] [address] [place] [address] ArrivedNOMS [place] [facility] MedinceComment on above:ArrivedStart: 06-08-2025 End: 50-00-4631Ijnjnvz encounter fvityxngz44/04/2025 7:30 AM EDT Appointment [facility] - Cardiovascular [address] [place] [address] [facility] Start: 06-07-2025 End: 03-07-0020Bnegelb encounter procedureProMedica [facility] Pain Management ClinicStart: 84-31-0469TRMIU-19 Vaccine ( season) COVID-19 Vaccine ()[facility] HealthcareStart: 96-93-4145Vbiksfqix vaccinationNOVA HealthcareStart: 05-24-2025 End: 86-10-5374Ubyaesdjwwzqle 2D completeEchocardiogram 2D complete Echocardiography Routine Murmur, heart SOB (shortness of breath) Expected: 05/24/2025 (Approximate), Expires: 05/24/2027[facility] Work Phone: Comment on above:Expected: 05/24/2025 (Approximate), Expires: 05/24/2027Start: 05-24-2025 End: 74-04-0375Bwfdume encounter procedureNOVA CI FMStart: 05-19-2025 End: 45-03-6460Lnithneke to same day surgery tuprug2205/19/2025 9:45 AM EDT - 05/19/2025 9:52 AM EDT Surgery [facility] Pain P rocedures [address] [place] [address] Kota Petty MD [address] [place], [place] [address] INJECTION FACET JOINT Bilateral T 3/4, 4/5 [50289 (CPT )][facility] - Pain ProceduresComment on above:INJECTION FACET JOINT Bilateral T 3/4, 4/5 [61881 (CPT )]Start: 05-19-2025 End: 28-35-5513Dlc dx/ther agt pvrt facet jt crv/thrc 1 levelINJECTION FACET JOINT Thoracic spondylosis without myelopathy 05/19/2025 9:45 AM EDTFREMONT PAIN Start: 90-43-9028Dzkkaicdah hospital visit by dzlomudql30/15/2025 9:45 AM EDT Hospital Encounter [facility] Pain Procedures [address] [place] [address] Kota ePtty MD [address] [place] [address] [facility] - Pain ProceduresStart: 04-26-2025 End: 90-29-4449Frjddsx encounter xxcrkbtji82/23/2025 8:45 AM EDT Office Visit [facility] [address] [place] [address] Gabi Omalley, MARK [address] [facility] [address] [place] [address] [facility] Pain Management ClinicStart: 03-15-2025 End: 36-50-2627AD Chest 2 ViewsXR chest 2 views Imaging Routine Rib pain Expected: 03/15/2025, Expires: 03/15/2026[facility] Work Phone: Comment on above:Expected: 03/15/2025, Expires: 03/15/2026Start: 03-15-2025 End: 33-60-7532YE Ribs Views and Chest PAN[facility] Work Phone: Comment on above:Expected: 03/15/2025, Expires: 03/15/2026Start: 02-28-2025 End: 06-00-7923DHS panel - Blood by Automated countCBC Lab Routine Orthostatic hypotension Expected: 02/28/2025 (Approximate), Expires: 02/28/2026[facility] HealthcareComment on above:Expected: 02/28/2025 (Approximate), Expires: 02/28/2026Start: 02-28-2025 End: 11-25-5907Eqzylwdzz (Vitamin B12) [Mass/volume] in Serum or PlasmaVitamin B12 Lab Routine Vitamin B12 deficiency Expected: 02/28/2025 (Approximate), Expires: 02/28/2026[facility] HealthcareComment on above:Expected: 02/28/2025 (Approximate), Expires: 02/28/2026Start: 02-28-2025 End: 79-23-5652Hpconmrkgaoug metabolic 2000 panel - Serum or PlasmaComprehensive metabolic panel Lab Routine Acquired hypothyroidism (CMS/HCC) Orthostatic hypotensionWeight loss Expected: 02/28/2025 (Approximate), Expires: 02/28/2026 [facility] HealthcareComment on above:Expected: 02/28/2025 (Approximate), Expires: 02/28/2026Start: 02-28-2025 End: 45-60-7506NK Chest for screening WO contrastNOMS HealthcareComment on above:Expected: 02/28/2025 (Approximate), Expires: 02/28/2026Expected: 02/28/2025, Expires: 02/28/2026Start: 02-28-2025 End: 65-60-5246Ksgfy 1996 panel - Serum or PlasmaLipid panel Lab Routine Mixed hyperlipidemia (CMS/HCC) Expected: 02/28/2025 (Approximate), Expires:02/28/2026 N[facility] HealthcareComment on above:Expected: 02/28/2025 (Approximate), Expires: 02/28/2026Start: 02-28-2025 End: 56-51-5486Otmjyyuw specific Ag [Mass/volume] in Serum or PlasmaPSA Lab Routine Screening for prostate cancer Expected: 02/28/2025 (Approximate), Expires: 02/28/2026N[facility] HealthcareComment on above:Expected: 02/28/2025 (Approximate), Expires: 02/28/2026Start: 02-28-2025 End: 71-94-9796DBQ W/REFLEX TO FT4TSH W/REFLEX TO FT4 Lab Routine Acquired hypothyroidism (CMS/HCC) Expected: 02/28/2025 (Approximate), Expires: 02/28/2026 [facility] Work Phone: Comment on above:Expected: 02/28/2025 (Approximate), Expires: 02/28/2026Start: 02-28-2025 End: 44-40-4493FR Abdomen Single viewXR ABDOMEN 2 VIEW Imaging Routine Chronic idiopathic constipation Expected: 02/28/2025, Expires: 02/28/2026[facility] Comment on above:Expected: 02/28/2025, Expires: 02/28/2026Start: 02-28-2025 End: 75-45-4495NW Lumbar spine Views W flexion and W extensionXR lumbar spine 4+ views w flexion extension Imaging Routine Acute bilateral low back pain without sciatica Expected: 02/28/2025, Expires: 02/28/2026N[facility] HealthcareComment on above:Expected: 02/28/2025, Expires: 02/28/2026Start: 02-28-2025 End: 38-80-8501Etnxusl encounter procedureNOMS CI FMComment on above:Arrived Start: 02-08-2025 End: 45-52-0855Kigudpk encounter /07/2025 1:00 PM EDT Office Visit [facility] [address] [place] [address] Michael Kong, DISTRICT ENGINEER [address] [place] [address] [facility] CI FMStart: 02-06-2025 End: 80-39-7561Qapoxpv encounter lbrtynpwq25/05/2025 8:30 AM EDT Office Visit [facility] [address] [place] [address] Dorian Canada PA [address] [place] [address] ArrivedNOMS CI FMComment on above:ArrivedStart: 03-06-2025Medicare Annual Wellness (AWV)Medicare Annual Wellness (AWV)[facility] HealthcareStart: 13-20-6811Mkyumzvgw for malignant neoplasm of colonColorectal Cancer ScreeningNOMS HealthcareComment on above:Postponed from 1966 (Patient Refused)Start: 11-29-2024 End: 83-82-7227Avgxzbr encounter osneqpolm70/25/2025 11:00 AM EST Office Visit [facility] [address] [place] [address] Haley Morrell NP [address] [place] [address] ArrivedNOMS CI FMComment on above:ArrivedStart: 11-09-2024 End: 10-41-0481Hkmyukd encounter wlcdnsrla65/05/2025 2:00 PM EST Office Visit [facility] [address] [place] [address] Michael Kong, DISTRICT ENGINEER [address] [place] [address] ArrivedNOMS CI FMComment on above:ArrivedStart: 10-27-2024 End: 59-41-0635Cjnvlzh encounter wxarjqxwp53/23/2025 1:30 PM EST Office Visit [facility] [address] [place] [address] Michael Kong, DISTRICT ENGINEER [address] [place] [address] [facility] CI FMStart: 09-29-2024 End: 32-28-7724Guminlb encounter wlodxmcbu21/26/2024 1:00 PM EST Office Visit [facility] [address] [place] [address] Michael Kong, DISTRICT ENGINEER [address] [place] [address] ArrivedNOMS CI FMComment on above:ArrivedStart: 65-35-8260Ehxsnietc vaccinationInfluenza Vaccine (#1)[facility] HealthcareStart: 00-16-6793Podlxcvpdqldvf of varicella zoster vaccineZoster (Shingles) Vaccine (1 of 2)[facility] SystemStart: 78-34-2384ZLlR,Tdap and Td Vaccines (1 - Tdap)DTaP,Tdap and Td Vaccines (1 - Tdap)[facility] SystemStart: 21-31-0298Qwezfspcx B Vaccines (1 of 3 - 19+ 3-dose series)Hepatitis B Vaccines (1 of 3 - 19+ 3-dose series)[facility] HealthcareStart: 42-37-4108Swrvwwcobrjv Vaccine: Pediatrics (0 to 5 Years) and At-Risk Patients (6 to 64 Years) (1 of 2 - PCV)Pneumococcal Vaccine: Pediatrics (0 to 5 Years) and At-Risk Patients (6 to 64 Years) (1 of 2 - PCV)[facility] HealthcareStart: 20-64-7350Ujawu BMI Follow Up PlanAdult BMI Follow Up PlanMarietta Osteopathic Clinic SystemStart: 63-82-4210Irggwnckyr ScreeningDepression ScreeningMarietta Osteopathic Clinic SystemStart: 58-97-5190Kopkdug ScreeningTobacco ScreeningMarietta Osteopathic Clinic SystemStart: 78-75-2954IZxZ/Tdap/Td Vaccines (1 - Tdap)DTaP/Tdap/Td Vaccines (1 - Tdap)[facility] HealthcareStart: 51-28-5604MKD Vaccines (1 of 1 - Standard series)MMR Vaccines (1 of 1 - Standard series)[facility] HealthcareStart: 74-37-9067Xilltoxwz for malignant neoplasm of colonNOVA HealthcareStart: 61-80-3710Puwhefk CounselingTobacco Counseling [facility] HospitalColonoscopy flx dx w/collj spec when pfrmdCOLONOSCOPY DIAGNOSTIC / SCREENING unintentional weight lossFREMONT SURGERY End: 59-23-2993PEA / ColonoscopyEGD / Colonoscopy GI Routine Weight loss Nausea and vomiting, unspecified vomiting type 1 Occurrences starting 07/11/2025 until 07/11/2026[facility] Work Phone: Comment on above:1 Occurrences starting 07/11/2025 until 07/11/2026Esophagogastroduodenoscopy transoral diagnostic ESOPHAGOGASTRODUODENOSCOPY DIAGNOSTIC unintentional weight lossFRSAINTE GENEVIEVE [facility] SURGERY [facility] Immunizations Immunization DateImmunizationNotesCare CozcndqdFdaiinmy22-46-4679gvuuyrqcb, seasonal, injectable, preservative freeJean Pierre Torresler DO Work Phone: noCameron Regional Medical CenterEpybherkhu18-32-8769mrvuifw and diphtheria toxoids, adsorbed, preservative free, for adult use (5 Lf of tetanus toxoid and 2 Lf of diphtheria toxoid)Carlos Enrique Maguire II Work Phone: [facility]09-18-2020influenza, injectable, quadrivalent, preservative freeMichael Kong DISTRICT ENGINEER Work Phone: [facility] HospitalXuphkxyjld13-84-6107pcfmmimwk virus vaccine, unspecified formulationKisujey Kong DISTRICT ENGINEER Work Phone: [facility] HospitalXkwrzabwfm15-76-1765jssnogxcw, injectable, quadrivalent, contains preservativeKisujey Kong DISTRICT ENGINEER Work Phone: [facility] HospitalOniyjqeqnj29-33-9134vfxcmcac influenza, intradermal, preservative freeMichael Kong DISTRICT ENGINEER Work Phone: noCameron Regional Medical CenterRqgbseappw46-57-3894etcrhdpy influenza, intradermal, preservative freeCoreym Kong DISTRICT ENGINEER Work Phone: noCameron [facility] Medical CenterIkcihfxwdq20-47-5109xxyjshwq influenza, intradermal, preservative freeCoreym Kong DISTRICT ENGINEER Work Phone: [facility] Payers DatePayer CategoryPayerPolicy [id number] 2025Medicare O [id number] 2024Medicare (Managed Care) [id number] 2023Self-pay2018Medicaid [id number] 2.840.1.103931.3.57[id number] 2.840.1.976036.3.57[id number] 2.840.1.359345.3.57[id number] 2.840.1.594180.3.579.[id number] 2.840.1.628758.3.579.2.35[id number] 2.840.1.100998.3.579.[id number] 2.840.1.207024.3.579.2.4[id number] 2.0.1.287067.3.579.2.2[id number] 2.840.1.386098.3.579.2.[id number] 2.840.1.821180.3.579.2.[id number] 2..840.1.384810.3.57[id number] 2.16.840.1.026306.3.57[id number] 2.840.1.865734.3.57[id number] 2.840.1.077026.3.579.2.03[id number] 2.840.1.505920.3.579.2.47[id number] 2.840.1.568546.3.579.2.099812-34-2737Egnebpa868703900 2.840.1.378789.3.579.2.199783-81-4127Saijsht733469813 2.840.1.759466.3.579.2.05[id number] 2.840.1.383935.3.579.2.732[id number] 2.840.1.907664.3.579.2.8[id number] 2.840.1.172761.3.579.2.[id number] 2.840.1.142114.3.57[id number] 2.840.1.124169.3.579.2.325[id number] 2.840.1.697710.3.579.2.687520-02-0345Hfixyps68284219 2.16.840.1.293504.3.579.2.923363-01-1147Grqrexh67517743 2.16.840.1.884589.3.579.2.441286-28-5292Dytkerv72236181 2.16.840.1.911357.3.579.2.442431-73-1054Oloarqe04934106 2.16840.1.035742.3.579.2.486918-07-5139Nvnvkbx28565592 2.16.840.1.858428.3.579.2.024169-58-8666Xwedxcc25391958 2..840.1.997828.3.579.2.765129-65-5798Zqbqyat38711878 2.840.1.595038.3.579.2.434764-25-6097Zwxsvnb28940302 2.840.1.268982.3.579.2.086867-81-8842Zqrbboz3907732 2.840.1.009633.3.579.2.152932-42-7766Dlnfahp2653343 2.840.1.944424.3.579.2.803240-27-6611Hapgevz2921552 2.840.1.550656.3.579.2.981452-46-8025Jsogfyh4587338 2.840.1.016665.3.579.2.032422-88-1202Zkzbvpp8290190 2.840.1.817381.3.579.2.910269-44-7064Dtqczxs4077444 2.840.1.805412.3.579.2.176004-55-0163Liusksl0825412 2.840.1.998617.3.579.2.1259 [id number] 1959Medicare [id number] 2.16.840.1.273608.3.579.2.531 Social History DateTypeDetailFacilityUnknown if ever [place] Other Start: 05-11-2024 End: 50-54-6834Myk Assigned At [facility] [place]UV[place] Other Start: 12-09-2023 End: 33-25-9956Hzricbl smoking status NHISSmokes tobacco dailyNOMS Healthcare History of tobacco useCigarette SmokerNOMS HealthcareStart: 12-09-2023 End: 79-99-0523Sgqfcxv use and exposureSmokeless tobacco non-userNOMS Healthcare Start: 05-11-2024 End: 02-38-0653Okkvlmdoi beverage intakeLifetime non-drinker (finding)[facility] HealthcareStart: 05-11-2024 End: 61-01-5202Hbsutel of Social functionNOMS HealthcareStart: 51-76-0469Xuxbnpx CommentCaffeine intake : chocolateNOMS HealthcareStart: 18-55-4403Dda assigned at [facility] hospitalNot on filePR[facility] CHILDR[facility] HealthcareTobacco smoking status NHISTobacco smoking consumption unknownMarietta Osteopathic Clinic SystemStart: 74-35-5017KlqytgzdvElaaade [facility] SystemStart: 22-39-5416MxuYzng (finding)[facility] Start: 88-69-0424Tmc Assigned At [facility] Start: 07-11-2025 End: 60-84-2989Hxkevwkgx beverage intakeEx-drinker (finding)[facility] SystemStart: 74-07-3940Mylvbud CommentsoberMarietta Osteopathic Clinic System Goals DatePatient GoalDesired Activity/StatePersonal health goal Functional Status OhyhNiqpeailnfSzdufbSppkluua97-23-1801Xqxxtae Health Questionnaire 2 item (PHQ- 2) [Reported][facility] HospitalMrdxvrywlt81-10-7558Zhzaofo Health Questionnaire 2 item (PHQ- 2) [Reported][facility] HospitalAnwjnfvtdx42-64-1772Vfjwdoe Health Questionnaire (PHQ) [Reported][facility] HospitalAmupzzbtvg84-36-1127Puxohmf Health Questionnaire 2 item (PHQ-2) [Reported][facility] HospitalJrodgswjpe83-32-3879TNY-6 quick depression assessment panel [Reported.PHQ][facility] HospitalAdcijajrsa51-18-0215Gcezars Health Questionnaire 2 item (PHQ- 2) [Reported][facility] HospitalTfzeleivff56-77-8718PKD-5 quick depression assessment panel [Reported.PHQ][facility] HospitalSbcbutsqma34-91-1882Myigvnj Health Questionnaire 2 item (PHQ- 2) [Reported][facility] HospitalXfembmlelm37-77-0766GRD-0 quick depression assessment panel [Reported.PHQ][facility] HospitalAxbyfehyti86-66-7200Vjefzqa Health Questionnaire 2 item (PHQ- 2) [Reported][facility] HospitalOorqfqwufp82-03-0422Tchwmdw Health Questionnaire 2 item (PHQ- 2) [Reported][facility] Clinical Notes 08-04-2023 to 08-16-2025 Note Date & QnrlXtjkAquaedml63-59-4450 History of Present illness Narrative* Jean Pierre Galo, DO - 08/16/2025 9:20 AM EST Images from the original note were not included. [facility] NATALIA Tanner SUBJECTIVE: HPI: Ole Stephens [...] about a week ago he was at [facility] for anxiety and was given lorazepam and this took him right out of the anxiety. Is wanting to restart lorazepam. With the holidays coming up he is really struggling due to past experience with his mother dying around this time. Does see [facility] for mental hea lt and typically goes [...] 5 - 40 mg/dL LDL Chol Calc ([facility]) 104 (H) 0 - 99 mg/dL TSH [...] lorazepam and this is not a good fci solution. Patient was persistent in wanting rx [...] bleeding History of drug abuse in remission ([facility]) History of ETOH abuse Persistent depressive disorder [...] Vitamin B 12 deficiency documented in this encounterTwo Rivers Psychiatric HospitalNwdzkxkpdw03-96-3242 Telephone encounter Note* Telephone Encounter - Letty [...] about this. Please advise. He uses [facility] in [place]. Please call him to let him know what the decision is either way. [facility] HospitalOxkievoatu85-27-4849 Miscellaneous Notes* Telephone Encounter - Letty Bui [...] about this. Please advise. He uses [facility] in [place]. Please call him to let him know what the decision is either way. documented in this encounterTwo Rivers Psychiatric HospitalRbognznldi47-03-4255 History of Present illness Narrative* Olena Salgado [...] CHOLECYSTECTOMY HERNIA REPAIR 1980 documented in this encounterTwo Rivers Psychiatric HospitalPcsvauxoor97-55-6531 Telephone encounter Note* Telephone Encounter - Letty Bui - 08/04/2025 10:19 AM EDT Neris Nurse caser with [facility] called to inform Dr. Galo that they have completed an Annual Health Risk Assessment and there is a care plan that is located at [facility] if he is interested at looking at that care plan. She also wanted to inform Dr. Galo that they offer physician rounds and if he'd like to call and schedule that the ph # to call would be [phone] option 3. [facility] HospitalKvewmgqfoa26-91-4187 Miscellaneous Notes* Telephone Encounter - Letty Bui - 08/04/2025 10:19 AM EDT Neris Nurse caser with [facility] called to inform Dr. Galo that they have completed an Annual Health Risk Assessment and there is a care plan that is located at [employer] if he is interested at looking at that care plan. She also wanted to inform Dr. Galo that they offer physician rounds and if he'd like to call and schedule that the ph # to call would be [phone] option 3. documented in this [facility]10-24-2025 Telephone encounter Note* Telephone Encounter - Mary Edmonds - 07/28/2025 2:18 PM EDT Pt called stating his insurance told him they need a note from Dr. Galo on why the Pt needs the CT scan for his chest that was sent on 07/26 so the insurance can approve this. [facility] HospitalNptckinkba63-26-6056 Miscellaneous Notes* Telephone Encounter - Mary Edmonds - 07/28/2025 2:18 PM EDT Pt called stating his insurance told him they need a note from Dr. Galo on why the Pt needs the CT scan for his chest that was sent on 07/26 so the insurance can approve this. documented in this encounterTwo Rivers Psychiatric HospitalTwpdzjduyu21-28-4417 Telephone encounter Note* Telephone Encounter - Letty Bui - 07/26/2025 1:07 PM EDT Patient called in stating that he was missing a few medications that he was supposed to be prescribed after today's visit with Dr. Galo. He says that he is missing the magnesium glycinate and also alpha lipoic acid medication. These need to be sent to [facility] in [place]. Please advise. [facility] HospitalHmnrwphvvz48-24-2966 Miscellaneous Notes* Telephone Encounter - Letty Bui - 07/26/2025 1:07 PM EDT Patient called in stating that he was missing a few medications that he was supposed to be prescribed after today's visit with Dr. Galo. He says that he is missing the magnesium glycinate and also alpha lipoic acid medication. These need to be sent to [facility] in [place]. Please advise. documented in this [facility]10-22-2025 History of Present illness Narrative* Jean Pierre Galo, DO - 07/26/2025 8:20 AM EDT Images from the original note were not included. [facility] [place] SUBJECTIVE: HPI: Ole Stephens is a 59 [...] states he does see pain management at [facility]. I have reviewed and reconciled the [...] bleeding History of drug abuse in remission ([facility]) History of ETOH abuse Persistent depressive disorder [2] Past Medical History: Diagnosis Date Allergies Anxiety Bipolar disorder (HCC) Chest discomfort Closed head injury 10/2016 Fall Degenerative disease of basal ganglia (HCC) Diaphoresis Dysfunction of eustachian tube Esophageal reflux Gastritis and gastroduodenitis Hyperlipidemia Hypothyroidism Loss of appetite Seizure (HCC) Vitamin B 12 deficiency documented in this [facility]10-20-2025 Telephone encounter Note* Telephone Encounter - Adeola Suarez - 07/24/2025 10:18 AM EDT Pt is calling to fu about npq that was filled out for Dr. Galo last week. He is concerned becausehe has lost a significant amount of weight and would like to get checked out mini. [facility] HospitalFhubluocwt19-66-1189 Miscellaneous Notes* Telephone Encounter - Adeola Suarez - 07/24/2025 10:18 AM EDT Pt is calling to fu about npq that was filled out for Dr. Galo last week. He is concerned becausehe has lost a significant amount of weight and would like to get checked out mini. documented in this [facility]10-17-2025 Miscellaneous Notes* Telephone Encounter - Leny Madsen RN - 07/21/2025 3:07 PM EDT Attempted to return patient's call about what he could do and what medications he could take for knee arthritis. No voicemail was set up. documented in this [facility]10-17-2025 Telephone encounter Note* Telephone Encounter - Leny Madsen RN - 07/21/2025 3:07 PM EDT Attempted to return patient's call about what he could do and what medications he could take for knee arthritis. No voicemail was set up. [facility]10-15-2025 History of Present illness Narrative* Gabi Omalley PA-C - 07/19/2025 10:45 AM EDT [facility] [address] [place] [address] Patient: Ole Stephens Sex: male : 1965 [...] Anxiety disorder, unspecified 12/09/2009 Bipolar 2 disorder ([facility] 12/06/2009 2003 Chronic bilateral thoracic back pain Chronic idiopathic constipation 12/09/2023 Chronic pain disorder Constipation Depressive disorder 12/09/2009 Drug abuse ([facility]) 12/06/2009 denies since 2005 Esophageal reflux 07/01/2023 ETOH abuse 12/06/2009 denies since 2005 External hemorrhoid, bleeding 12/09/2023 History of drug abuse in remission ([facility]) 12/09/2023 Hypothyroidism 07/01/2023 Joint pain Loss of appetite 07/01/2023 Low back pain Mixed hyperlipidemia 07/01/2023 Murmur Muscle spasm Nausea & vomiting Orthostatic hypotension 12/15/2009 Palpitations 12/09/2009 Seizure ([facility]) 07/01/2023 Vitamin B12 deficiency 07/01/2023 Weight loss Past Surgical History: Procedure Laterality Date CHOLECYSTECTOMY HERNIA REPAIR inguinal hernia INJECTION BLOCK NERVE MEDIAL BRANCH Bilat T 3/4, 4/5 Bilateral 06/23/2025 Performed by Kota Petty MD at [facility] INJECTION BLOCK NERVE MEDIAL BRANCH Bilat T 3/4, 4/5 Bilateral 05/19/2025 Performed by Kota Petty MD at [facility] NOSE SURGERY Allergies Allergen Reactions Penicillins [...] Omalley PA-C 07/19/25 1247 documented in this encounterCherrington HospitalStepping Stones Home & Care [id number] Instructions* Patient Instructions* Steffi Israel RN - 07/19/2025 10:45 AM EDT Call our office to notify us of the date MRI is scheduled. You will then be scheduled for a follow up with our office so that the provider can discuss your MRI results and treatment plan. documented in this [facility]10-14-2025 Miscellaneous Notes* Telephone Encounter - Karie Niko [...] - 07/18/2025 9:53 AM EDT [facility] Coord[facility] was called and patient was removed from the surgery schedule. documented in this [facility]10-14-2025 Telephone encounter Note* Telephone Encounter - Karie Pope - 07/18/2025 9:53 AM EDT Ole called the office and stated he wished to cancel his colonoscopy and egd scheduled for 07/20/[address] Castro. He does not wish to reschedule at this time. I informed patient he will need another consult if he chooses to wait past 30 days to reschedule. [facility]10-14-2025 Telephone encounter Note* Telephone Encounter - ROZINA Blair - 07/18/2025 9:53 AM EDT [facility] Surgery Coordinator [facility] was called and patient was removed from the surgery schedule. [facility]10-09-2025 Miscellaneous Notes* Perioperative Nursing Note - Madelyn White RN - 07/13/2025 1:50 PM EDT Preoperative Education Checklist- General Surgery date: 07/20/25 Surgery time: 1100 Arrival time: 0900 1. Bring a photo ID and your insurance card with you the day of surgery. You will check in at the main lobby of the [facility]- registration desk is straight ahead as soon as you walk in. Tell them you are here for surgery. 2. If you have a Living Will/Durable Power of Neonatal Nurse Practitioner for Health Care that is not on [...] after you have bathed. 5. NO nail latvian/acrylic on at least one finger. If you are having a hand, wrist or foot surgery then all nail latvian and artificial/acrylic nails must be removed from [...] please call the Preadmission Testing office at [phone], Mon.-Fri. 7 a.m.-3 p.m. Leave a voicemail [...] days prior to procedure documented in this encounterCleveland Clinic [facility] Hospital10-09-2025 Nurse Note* Perioperative Nursing Note - Madelyn White RN - 07/13/2025 1:50 PM EDT Preoperative Education Checklist- General Surgery date: 07/20/25 Surgery time: 1100 Arrival time: 0900 1. Bring a photo ID and your insurance card with you the day of surgery. You will check in at the main lobby of the [facility]- registration desk is straight ahead as soon as you walk in. Tell them you are here for surgery. 2. If you have a Living Will/Durable Power of Neonatal Nurse Practitioner for Health Care that is not on [...] after you have bathed. 5. NO nail latvian/acrylic on at least one finger. If you are having a hand, wrist or foot surgery then all nail latvian and artificial/acrylic nails must be removed from [...] please call the Preadmission Testing office at [phone], Mon.-Fri. 7 a.m.-3 p.m. Leave a voicemail [...] Stop taking 0 days prior to procedure [facility] [employer] [id number] Miscellaneous Notes* Telephone Encounter - Rufina Banks [...] 2:39 PM EDT Done documented in this encounterCleveland [facility] Hospital10-08-2025 Telephone encounter Note* Telephone Encounter - Rufina [...] talking to you and ends call abruptly. [facility]10-08-2025 Telephone encounter Note* Telephone Encounter - Gabi Omalley PA-C - 07/12/2025 2:39 PM EDT Send letter for inappropriate behavior [facility]10-08-2025 Telephone encounter Note* Telephone Encounter - Steffi Israel RN - 07/12/2025 2:39 PM EDT Done [facility]10-07-2025 History of Present illness Narrative* SHERLYN Gomez [...] Anxiety disorder, unspecified 12/09/2009 Bipolar 2 disorder ([facility] 12/06/2009 2003 Chronic bilateral thoracic back pain Chronic idiopathic constipation 12/09/2023 Chronic pain disorder Constipation Depressive disorder 12/09/2009 Drug abuse ([facility]) 12/06/2009 denies since 2005 Esophageal reflux 07/01/2023 ETOH abuse 12/06/2009 denies since 2005 External hemorrhoid, bleeding 12/09/2023 History of drug abuse in remission ([facility]) 12/09/2023 Hypothyroidism 07/01/2023 Joint pain Loss of appetite 07/01/2023 Low back pain Mixed hyperlipidemia 07/01/2023 Murmur Muscle spasm Nausea & vomiting Orthostatic hypotension 12/15/2009 Palpitations 12/09/2009 Seizure ([facility]) 07/01/2023 Vitamin B12 deficiency 07/01/2023 Weight loss Past Surgical History: Procedure Laterality Date CHOLECYSTECTOMY HERNIA REPAIR inguinal hernia INJECTION BLOCK NERVE MEDIAL BRANCH Bilat T 3/4, 4/5 Bilateral 06/23/2025 Performed by Kota Petty MD at [facility] INJECTION BLOCK NERVE MEDIAL BRANCH Bilat T 3/4, 4/5 Bilateral 05/19/2025 Performed by Kota Petty MD at [facility] NOSE SURGERY Allergies Allergen Reactions Penicillins [...] patient/family/caregiver Referring and communicating with other health multi care technician Weight loss [R63.4] SHERLYN GOMEZ [facility] [place] [facility] General Surgery [place] This note was created with the assistance of a speech recognition program. While intending to generate a timely document that accurately reflects the content of the visit, no guarantee can be provided that every grammatical or spelling mistake has been or will be identified or corrected. Thank you for your understanding. SHERLYN Gomez 07/11/25 1352 documented in this encounterCleveland Clinic [facility] Hospital09-23-2025 Miscellaneous Notes* Telephone Encounter - Steffi Israel RN - 06/27/2025 1:36 PM EDT Patient left message requesting Meloxicam refill. Prescription signed 05/23/2025 has 1 refill. Call placed to patient to inform him of this information and to advise him to call his pharmacy. PVU documented in this encounterCleveland Clinic [facility] Hospital09-23-2025 Telephone encounter Note* Telephone Encounter - Steffi Israel RN - 06/27/2025 1:36 PM EDT Patient left message requesting Meloxicam refill. Prescription signed 05/23/2025 has 1 refill. Call placed to patient to inform him of this information and to advise him to call his pharmacy. PVU [facility]09-22-2025 Telephone encounter Note* Telephone Encounter - SHENG Carrasco - 06/26/2025 2:25 PM EDT Request was for Xanax, Alprazolam. Pt does not take this medication. OARRS reviewed. Lorazepam sent. [facility] HospitalVynhrldcwg63-84-4078 Miscellaneous Notes* Telephone Encounter - SHENG Carrasco - 06/26/2025 2:25 PM EDT Request was for Xanax, Alprazolam. Pt does not take this medication. OARRS reviewed. Lorazepam sent. documented in this encounterTwo Rivers Psychiatric HospitalNddcipzdwf59-38-5714 Miscellaneous Notes* Telephone Encounter - Stacie Carranza RN - 06/23/2025 12:37 PM EDT Pt calls with c/o pain at injection site and bilateral shoulder blades are sore. Educated pt that injection site pain is to be expected and for pain control he can use OTC treatments such as NSAIDs, tylenol, topical pain relievers such as creams/gels, patches, heat/ice. PVU documented in this encounterC[facility] Hospital09-19-2025 Telephone encounter Note* Telephone Encounter - Stacie Carranza RN - 06/23/2025 12:37 PM EDT Pt calls with c/o pain at injection site and bilateral shoulder blades are sore. Educated pt that injection site pain is to be expected and for pain control he can use OTC treatments such as NSAIDs, tylenol, topical pain relievers such as creams/gels, patches, heat/ice. PVU [facility]09-17-2025 History of Present illness Narrative* Haley Morrell [...] a provider. He see's pain management at [facility] in [place]. Pt needs surgical clearance injection. See echo [...] effusion. Pt does not want to pursue clinical data programmer at this time. WBC 9.0 Hgb 12.8 [...] No follow-ups on file. documented in this encounterTwo Rivers Psychiatric HospitalPkffelatkh78-98-4377 Miscellaneous Notes* Telephone Encounter - Steffi Israel RN - 06/16/2025 1:40 PM EDT Patient called office today to report that he was seen by cardiology and placed on new medications.He states he had an echo that showed water around my heart . New medications include 40 mg Prednisone taper, Carafate, Doxycycline (started 2 days ago), and a steroid cream that he has not product picker yet from the pharmacy. Doxy and [...] patient to obtain the name of patient's clinical data programmer. He states he does not have a clinical data programmer. Patient's PCP, Haley Morrell NP, ordered the [...] be made aware that he has no clinical data programmer and that his PCP was the ordering [...] letter sent to his PCP, Haley Morrell DISTRICT ENGINEER. * Telephone Encounter - Stacie Carranza RN [...] Will try again later. documented in this encounterCherrington HospitalStepping Stones Home & Care [id number] Telephone encounter Note* Telephone Encounter - Steffi [...] a steroid cream that he has not product picker yet from the pharmacy. Doxy and topical is for a skin infection on his chin. Patient is scheduled for Bilateral T 3/4 4/5 MBB 06/23/2025. [facility] [employer] [id number] Telephone encounter Note* Telephone Encounter - Gabi Omalley PA-C - 06/16/2025 1:40 PM EDT We will need cardio clearance prior to procedure [facility] [employer] Nejern00-96-0762 Telephone encounter Note* Telephone Encounter - Steffi Israel RN - 06/16/2025 1:40 PM EDT Call placed to patient to obtain the name of patient's clinical data programmer. He states he does not have a clinical data programmer. Patient's PCP, Haley Morrell NP, ordered the echo. Patient's upcoming procedure is without sedation. How would you like to proceed? [facility] [employer] [id number] Telephone encounter Note* Telephone Encounter - Steffi Israel RN - 06/16/2025 1:40 PM EDT Patient called office and repeated information noted in previous encounters related to echo results. He states he has to have his injection this week as he is so much pain. Patient is informed that provider will be made aware that he has no clinical data programmer and that his PCP was the ordering provider. Patient states that if he not able to have his scheduled injection this week he will go to the ED. Jose ended the call. [facility] [employer] [id number] Telephone encounter Note* Telephone Encounter - Steffi [...] a little water around my heart . [facility]09-12-2025 Telephone encounter Note* Telephone Encounter - Gabi Omalley PA-C - 06/16/2025 1:40 PM EDT If PCP will clear him that is sufficient [facility]09-12-2025 Telephone encounter Note* Telephone Encounter - Steffi Israel RN - 06/16/2025 1:40 PM EDT Clearance letter sent to his PCP, Haley Morrell NP. [facility]09-12-2025 Telephone encounter Note* Telephone Encounter - Stacie Carranza RN - 06/16/2025 1:40 PM EDT Resent surgical clearance to haley morrell. They did not send it back. They sent a referral, documentation stating pt requested referral [facility]09-12-2025 Telephone encounter Note* Telephone Encounter - Stacie [...] for Bilateral T 3/4, 4/5 MBB, local. [facility]09-12-2025 Telephone encounter Note* Telephone Encounter - Stacie Carranza RN - 06/16/2025 1:40 PM EDT Clearance received from PCP. Called pt to inform him and that he can proceed with procedure. No answer. Will try again later. [facility]09-11-2025 History of Present illness Narrative* Haley Morrell [...] 10/2016 Fall Degenerative disease of basal ganglia ([facility]) Diaphoresis Dysfunction of eustachian tube Esophageal reflux Gastritis and gastroduodenitis Hyperlipidemia Hypothyroidism Loss of appetite Seizure ([facility]) Vitamin B 12 deficiency Past [...] General Surgery; Future Await EGD Pericardial effusion ([facility]) - predniSONE (Deltasone) 10 MG tablet; [...] No follow-ups on file. documented in this [facility]09-04-2025 Telephone encounter Note* Telephone Encounter - SHENG Carrasco - 06/08/2025 4:52 PM EDT OARRS reviewed, Rx sent into patient's pharmacy. [facility] [id number] Miscellaneous Notes* Telephone Encounter - SHENG Carrasco - 06/08/2025 4:52 PM EDT OARRS reviewed, Rx sent into patient's pharmacy. * Telephone Encounter - Yuly Chan - 06/08/2025 12:58 PM EDT Ole stopped in asking for a refill on LORazepam (Ativan) 1 MG to [facility] in [place] documented in this [facility]09-04-2025 Telephone encounter Note* Telephone Encounter - Yuly Chan - 06/08/2025 12:58 PM EDT Ole stopped in asking for a refill on LORazepam (Ativan) 1 MG to [facility] [place] [facility] [id number] History of Present illness Narrative* Gabi Omalley PA-C - 06/07/2025 1:00 PM EDT [facility] [address] [place] [address] Patient: Ole Stephens Sex: male : 1965 [...] Anxiety disorder, unspecified 12/09/2009 Bipolar 2 disorder ([facility] 12/06/2009 2003 Chronic bilateral thoracic back pain Chronic idiopathic constipation 12/09/2023 Chronic pain disorder Depressive disorder 12/09/2009 Drug abuse ([facility]) 12/06/2009 denies since 2005 Esophageal reflux 07/01/2023 ETOH abuse 12/06/2009 denies since 2005 External hemorrhoid, bleeding 12/09/2023 History of drug abuse in remission ([facility]) 12/09/2023 Hypothyroidism 07/01/2023 Joint pain Loss of appetite 07/01/2023 Low back pain Mixed hyperlipidemia 07/01/2023 Murmur Muscle spasm Orthostatic hypotension 12/15/2009 Palpitations 12/09/2009 Seizure ([facility]) 07/01/2023 Vitamin B12 deficiency 07/01/2023 Past Surgical History: Procedure Laterality Date INJECTION BLOCK NERVE MEDIAL BRANCH Bilat T 3/4, 4/5 Bilateral 05/19/2025 Performed by Kota Petty MD at [facility] Allergies Allergen Reactions Penicillins Swelling localized [...] Omalley PA-C 06/07/25 1329 documented in this encounterC[facility] Instructions* Patient Instructions* Rufina Banks CNA - [...] the nearest emergency room. documented in this encounterCherrington HospitalLectus Therapeutics [facility] [id number] History of Present illness Narrative* Haley Morrell [...] 10/2016 Fall Degenerative disease of basal ganglia ([facility]) Diaphoresis Dysfunction of eustachian tube Esophageal reflux Gastritis and gastroduodenitis Hyperlipidemia Hypothyroidism Loss of appetite Seizure ([facility]) Vitamin B 12 deficiency Past [...] No follow-ups on file. documented in this encounterTwo Rivers Psychiatric [id number] Miscellaneous Notes* Telephone Encounter - Liss Moralez RN - 05/22/2025 3:56 PM EDT Patient had a bilateral T3/4, 4/5 on 05/19/25, he only received 100% relief x 30 minutes. 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 Advised patient, will send note to provider, but to follow up as scheduled and reminded him to bring his pain diary. [facility]U [facility]08-18-2025 Telephone encounter Note* Telephone Encounter - Steffi [...] has not tried any other muscle relaxer. [facility]08-18-2025 Telephone encounter Note* Telephone Encounter - Sarah Andrews - 05/22/2025 3:56 PM EDT Pt called in and left a voicemail requesting a different muscle relaxer. He stated that the muscle relaxer he is taking now does nothing but put him to sleep [facility]08-18-2025 Miscellaneous Notes* Telephone Encounter - Liss Moralez RN - 05/22/2025 3:51 PM EDT Last OV: 04/26/2025 Next OV: 06/07/2025 OARRS appropriate: Yes Last UDS: NA Pharmacy: [facility] Gabapentin was new on 04/26/25, patient requested refill of the Gabapentin and Mobic. documented in this encounterCleveland [facility]08-[facility]-2025 Telephone encounter Note* Telephone Encounter - Liss Morlaez RN - 05/22/2025 3:51 PM EDT Last OV: 04/26/2025 Next OV: 06/07/2025 OARRS appropriate: Yes Last UDS: NA Pharmacy: [facility] Gabapentin was new on 04/26/25, patient requested refill of the Gabapentin and Mobic. [facility]08-18-2025 Telephone encounter Note* Telephone Encounter - SHENG Carrasco - 05/22/2025 3:01 PM EDT resent [facility] HospitalSwvpjoltdr53-00-6858 Miscellaneous Notes* Telephone Encounter - SHENG Carrasco - 05/22/2025 3:01 PM EDT resent * Telephone Encounter - Yuly Chan - 05/22/2025 11:06 AM EDT Ole called and stated his meds got sent to [facility] but [facility] [place]. He asked that [facility] documented in this encounterTwo Rivers Psychiatric HospitalKvodokppml52-61-1150 Telephone encounter Note* Telephone Encounter - Yuly Chan - 05/22/2025 11:06 AM EDT Ole called and stated his meds got sent to [facility] but [facility] [place]. He asked that [facility] to [facility] HospitalNrwvnycmjd39-93-9657 Telephone encounter Note* Telephone Encounter - SHENG Carrasco - 05/22/2025 10:38 AM EDT OARRS reviewed, Rx sent into patient's pharmacy. [facility] HospitalEycjoscesw87-00-0636 Miscellaneous Notes* Telephone Encounter - SHENG Carrasco - 05/22/2025 10:38 AM EDT OARRS reviewed, Rx sent into patient's pharmacy. * Telephone Encounter - Abi Diego - 05/22/2025 9:21 AM EDT LORazepam (Ativan) 1 MG tablet And [facility]ad[facility] * Telephone Encounter - Chante Smith - [...] a lot of pain, call back number [phone]. * Telephone Encounter - Chante Smith - [...] tramadol sent to [facility] in [place].States he is in severe pain and it is causing him anxiety. Call back number is [phone] documented in this encounterTwo Rivers Psychiatric HospitalHmavhfrchp98-07-5683 Telephone encounter Note* Telephone Encounter - Abi Diego - 05/22/2025 9:21 AM EDT LORazepam (Ativan) 1 MG tablet And [facility]ad[facility] [place] [facility] [id number] Telephone encounter Note* Telephone Encounter - Chante [...] and she said they can't be filled. [place] [id number] Telephone encounter Note* Telephone Encounter - Chante Smith - 05/20/2025 1:51 PM EDT Pt called back and asked that the provider call him directly, he is very upset and in a lot of pain, call back number [phone]. [address]Trhcimevij56-75-9498 Telephone encounter Note* Telephone Encounter - Chante Smith - 05/20/2025 1:41 PM EDT Per Leatha Arzate: I'm not sure if he has a contract with pain mgt in regard to pain med. 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 I was reading his history in [employer] and he has a hx of drug abuse. I do not feel comfortable prescribing opioid medication Pt notified, states he will go to the ER [place] [id number] Telephone encounter Note* Telephone Encounter - Chante Smith - 05/20/2025 12:20 PM EDT Pt is calling because he just had injections with pain management in his back and he states he is in pain. He wants to know if he can get lorazepam and tramadol sent to [facility] in [place].States he is in severe pain and it is causing him anxiety. Call back number is [phone] [address]Rcyfzcehmx59-42-1179 Evaluation note* Diagnosis Onset Date Resolution Status Admit Date Impetigo acuteAugust 2024 9:43am [facility] Work Phone: 1(192) 637-770608-13-2025 Evaluation note* Diagnosis Onset Date Resolution Status Admit Date Impetigo acuteAugust 2024 9:43amPuncture wound of left handnoneactiveSeptember 2024 9:02am [facility] Work Phone: 1(759) 499-907808-13-2025 Evaluation note* Diagnosis Onset Date Resolution Status Admit Date Impetigo acuteAugust 2024 9:43amPuncture wound of left handnoneactiveSept2024 9:02amFolliculitisacuteSept2024 10:03amSkin infectionacute Racheal 2024 10:03am [facility] Work Phone: 1(488) 535-185007-23-2025 History of Present illness Narrative* Gabi Omalley PA-C - 04/26/2025 8:45 AM EDT [facility] [address] [place] [address] Patient: Ole Stephens Sex: male : 1965 Age: 59 y.o. PCP: CARLOS ENRIQUE MAGUIRE MD 04/26/2025 Ole Stephens is here for a(n) follow up appointment after starting Mobic 15mg daily whichis providing some relief for his upper back pain. Patient also started Physical Therapy in [place] which provides only very temporary relief before [...] Anxiety disorder, unspecified 12/09/2009 Bipolar 2 disorder ([facility] 12/06/20092002 Chronic bilateral thoracic back pain Chronic idiopathic constipation 12/09/2023 Depressive disorder 12/09/2009 Drug abuse ([facility]) 12/06/2009 denies since 2005 Esophageal reflux 07/01/2023 ETOH abuse 12/06/2009 denies since 2005 External hemorrhoid, bleeding 12/09/2023 History of drug abuse in remission ([facility]) 12/09/2023 Hypothyroidism 07/01/2023 Loss of appetite 07/01/2023 Mixed hyperlipidemia 07/01/2023 Murmur Muscle spasm Orthostatic hypotension 12/15/2009 Palpitations 12/09/2009 Seizure ([facility]) 07/01/2023 Vitamin B12 deficiency 07/01/2023 History reviewed. [...] Omalley PA-C 04/26/25 0922 documented in this encounterCherrington HospitalLectus Therapeutics [facility] CenterJrhkcg91-96-5407 Instructions* Patient Instructions* Rufina Banks CNA - [...] emergency room. documented in this encounterC[facility] Telephone encounter Note* Telephone Encounter - SHENG Carrasco - 04/24/2025 1:44 PM EDT OARRS reviewed, Rx sent into patient's pharmacy. [facility] HospitalKiusdbvefe58-05-6281 Miscellaneous Notes* Telephone Encounter - SHENG Carrasco - 04/24/2025 1:44 PM EDT OARRS reviewed, Rx sent into patient's pharmacy. * Telephone Encounter - Jesusita Beck LPN - 04/24/2025 11:25 AM EDT I completed the prior auth on [employer] and it came back that Prior auth not required . Spoke to pt and he is just asking for a refill. * Telephone Encounter - Yuly Chan - 04/24/2025 10:08 AM EDT Ole left a message stating he needed a prior auth done on his Tramadol so he can fill it. documented in this encounterTwo Rivers Psychiatric HospitalMighpsqjil54-98-3294 Telephone encounter Note* Telephone Encounter - Jesusita Beck LPN - 04/24/2025 11:25 AM EDT I completed the prior auth on [employer] and it came back that Prior auth not required . Spoke to pt and he is just asking for a refill. [facility] HospitalGhxhosupkd06-45-5238 Telephone encounter Note* Telephone Encounter - Yuly Chan - 04/24/2025 10:08 AM EDT Ole left a message stating he needed a prior auth done on his Tramadol so he can fill it. [facility] HospitalIgsqdrwjok89-04-0247 Miscellaneous Notes* Telephone Encounter - SHENG Carrasco [...] [facility] [place]. * Telephone Encounter - Abi Diego - 04/17/2025 4:22 PM EDT LORazepam (Ativan) 1 MG tablet [facility] documented in this encounterTwo Rivers Psychiatric HospitalKebjcxyyir22-74-3211 Telephone encounter Note* Telephone Encounter - SHENG [...] due to our office increasing the dosage. [facility] HospitalNminjnowih00-75-9473 Telephone encounter Note* Telephone Encounter - Yuly Chan - 04/18/2025 9:14 AM EDT Ole left a message stating hisLORazepam (Ativan) 1 MG could not be filled and the pharmacy stated it was waiting approval from the physician. He is asking for a new prescription to be sent to [facility] in [place]. [facility] HospitalSaykpssvxi14-86-4363 Telephone encounter Note* Telephone Encounter - Edith Contreras - 04/17/2025 5:06 PM EDT Pt called and he need refill of ativan [place] [id number] Miscellaneous Notes* Telephone Encounter - Edith Contreras - 04/17/2025 5:06 PM EDT Pt called and he need refill of ativan documented in this encounterTwo Rivers Psychiatric HospitalSspkrkwomu82-67-9106 Telephone encounter Note* Telephone Encounter - Abi Diego - 04/17/2025 4:22 PM EDT LORazepam (Ativan) 1 MG tablet [facility] [place] [id number] Telephone encounter Note* Telephone Encounter - SHENG Carrasco - 04/10/2025 8:30 AM EDT OARRS reviewed, Rx sent into patient's pharmacy. [place] [id number] Miscellaneous Notes* Telephone Encounter - SHENG Carrasco - 04/10/2025 8:30 AM EDT OARRS reviewed, Rx sent into patient's pharmacy. documented in this [facility]06-11-2025 Telephone encounter Note* Telephone Encounter - SHENG Carrasco - 03/15/2025 3:12 PM EDT Spoke with patient. He would like imaging specifically of his ribs to make sure he did not break a rib. Rib series with chest PA x-ray order sent to [facility]. [facility] HospitalDqwyvurhbo12-81-6846 Miscellaneous Notes* Telephone Encounter - SHENG Carrasco - 03/15/2025 3:12 PM EDT Spoke with patient. He would like imaging specifically of his ribs to make sure he did not break a rib. Rib series with chest PA x-ray order sent to [facility]. * Telephone Encounter - Abi [...] view of his ribs. documented in this [facility]06-11-2025 Telephone encounter Note* Telephone Encounter - Abi [...] for another view of his ribs. [facility] [id number] History of Present illness Narrative* Gabi Omalley PA-C - 03/15/2025 12:00 PM EDT [facility] [address] [place] [address] Patient: Ole Stephens Sex: male : 1965 [...] Anxiety disorder, unspecified 12/09/2009 Bipolar 2 disorder ([facility] 12/06/20092002 Chronic bilateral thoracic back pain Chronic idiopathic constipation 12/09/2023 Depressive disorder 12/09/2009 Drug abuse ([facility]) 12/06/2009 denies since 2005 Esophageal reflux 07/01/2023 ETOH abuse 12/06/2009 denies since 2005 External hemorrhoid, bleeding 12/09/2023 History of drug abuse in remission ([facility]) 12/09/2023 Hypothyroidism 07/01/2023 Loss of appetite 07/01/2023 Mixed hyperlipidemia 07/01/2023 Muscle spasm Orthostatic hypotension 12/15/2009 Palpitations 12/09/2009 Seizure ([facility]) 07/01/2023 Vitamin B12 deficiency 07/01/2023 History reviewed. [...] Omalley PA-C 03/15/25 1359 documented in this encounterC[facility] Telephone encounter Note* Telephone Encounter - MORRIS VEGA - 03/14/2025 2:13 PM EDT Spoke with patient and he would like an x-ray done of his ribs due to back pain. He states his ribshurt all over when he coughs. He is to have back surgery and also see pain management on 03-15-25. Please avise [facility] HospitalSmopjpkesl20-74-1861 Miscellaneous Notes* Telephone Encounter - MORRIS VEGA [...] they are very painful. documented in this encounterTwo Rivers Psychiatric HospitalZkvjdamirc10-67-0368 Telephone encounter Note* Telephone Encounter - Abi Diego - 03/14/2025 11:04 AM EDT Patient wants to know if he can get an xray on his ribs he said that they are very painful. [facility] HospitalXesdltwdki74-23-7438 Telephone encounter Note* Telephone Encounter - Haley Morrell NP - 02/28/2025 12:06 PM EDT Pt needs his Tramadol and Ativan sent in. Both of these are an increase since last visit. I referred him to pain management for his back pain Ativan 1mg TID prn Tramadol 100mg every 6 hours as needed [facility] HospitalXbnvyprwla13-07-1158 Miscellaneous Notes* Telephone Encounter - Haley Morrell NP - 02/28/2025 12:06 PM EDT Pt needs his Tramadol and Ativan sent in. Both of these are an increase since last visit. I referred him to pain management for his back pain Ativan 1mg TID prn Tramadol 100mg every 6 hours as needed documented in this encounterTwo Rivers Psychiatric HospitalVdngpqhztj49-46-6839 History of Present illness Narrative* Haley Morrell [...] Yes Cognitive Screening Three Word Registration: Banana, Temperance, Chair Clock Drawing: Inability or Refusal to Draw Clock - 0 Three Word Recall: All 3 words correct - 3 Total Score (0-5 Points): 3 Pain Assessment Pain Score: 8 Advance Care Planning Do you have a living will?: Yes Do you have a medical power of real estate associate attorney?: Yes Objective : BP 112/76 Pulse [...] at this time. 17. Persistent depressive disorder (CMS/[facility]) Medication as directed. Verbalizes understanding [...] depression. 18. Routine general medical examination at [facility] Reviewed all relevant preventative [...] on February 28, 2025 documented in this encounterTwo Rivers Psychiatric HospitalEorsafhmia01-90-8640 History of Present illness Narrative* SHENG Carrasco [...] for Appointment As Scheduled. documented in this encounterTwo Rivers Psychiatric HospitalBrtonitrev98-31-7142 Telephone encounter Note* Telephone Encounter - Abi Diego - 01/26/2025 11:18 AM EDT traMADol (Ultram) [facility] HospitalVkexhagkgz80-85-5014 Miscellaneous Notes* Telephone Encounter - Abi Diego - 01/26/2025 11:18 AM EDT traMADol (Ultram) 50 MG tablet [facility] documented in this encounterTwo Rivers Psychiatric HospitalXppuogtypw46-20-9945 History of Present illness Narrative* MORRIS VEGA [...] understanding of treatment plan. documented in this encounterTwo Rivers Psychiatric HospitalOlmosycyur63-31-0504 History of Present illness Narrative* Michael Kong [...] No follow-ups on file. documented in this encounterTwo Rivers Psychiatric HospitalKsanlrazbp66-83-3552 Instructions* Patient Instructions* Michael Kong NP - 11/09/2024 2:00 PM EST Refills sent today. documented in this [facility]01-10-2025 Telephone encounter Note* Telephone Encounter - Michael Kong NP - 10/14/2024 11:35 AM EST Please call the pt and notify that orthopedics recommended pain management. If he is ok with going to pain management please send the referral. [facility] HospitalEkerpalqvx64-46-4658 Miscellaneous Notes* Telephone Encounter - Michael Kong [...] pain management per ortho documented in this [facility]12-30-2024 Telephone encounter Note* Telephone Encounter - Marsha Schofield MA - 10/03/2024 9:27 AM EST Ortho office states they are denying the referral please refer to [facility] per ortho [facility] HospitalNclmcncfzg97-99-9207 History of Present illness Narrative* Michael Kong [...] day pt is having microwave dinners like [employer] stated No problems with going to the [...] No follow-ups on file. documented in this [facility]12-26-2024 Instructions* Patient Instructions* Michael Kong NP - 09/29/2024 1:00 PM EST Norflex continues. Voltaren continues. Wellbutrin xl is started. Alprazolam is started x 10 days only. documented in this [facility]10-31-20[facility] Evaluation note* Encounter Date Diagnosis Assessment [...] area. Pt understood agreed to treatment plan. [place] Other Evaluation note* Diagnosis Hospital discharge follow-up- [...] disorder, current episode hypomanic (CMS/HCC) Unspecified convulsions ([facility]HCC) Bipolar disorder, in partial remission, most recent episode depressed ([facility]/H[facility]) Other psychoactive substance abuse, in remission ([facility]) Bipolar disorder, unspecified ([facility]/HCC) Bipolar disorder, unspecified Bipolar disorder, in partial remission, most recent episode mixed ([facility]/HCC) documented in this encounter [facility] HealthcareEvaluation note* [...] [facility] SystemEvaluation noteNo assessment information available [facility] Work Phone: Evaluation note* Diagnosis Anxiety [...] vomiting type Dysphagia, unspecified type Pericardial effusion ([facility]) Unspecified disease of pericardium Skin infection [...] Diagnosis History of drug abuse in remission ([facility])- Primary Anxiety Anxiety state, unspecified Reactive depression [...] Health System InstructionsNot on filedocumented in this encounterProOhiohealth [facility]in [facility] System InstructionsNot on filedocumented in this encounterMarietta Osteopathic Clinic SystemReason for referral (narrative)No reason for referral information availableHenry County Hospital Work Phone: Summary Purpose Family History [...] section and content) DATE CREATED AUTHOR 12/07/2019 [facility] DATE CREATED AUTHOR AUTHOR'S ORGANIZ ATION 03/04/2025 [facility] DATE CREATED AUTHOR AUTHOR'S ORGANIZ ATION 07/13/2025 [facility] DATE CREATED AUTHOR AUTHOR'S ORGANIZ ATION 07/24/2025 [facility] DATE CREATED AUTHOR AUTHOR'S ORGANIZ ATION 08/11/2025 [facility] DATE CREATED AUTHOR AUTHOR'S ORGANIZ ATION 08/12/2025 [facility] DATE CREATED AUTHOR AUTHOR'S ORGANIZ ATION 08/17/2025 [facility] EPIC REASON FOR VISIT (unrecogniz ed section and content) ReasonCommentsBack PainReasonCommentsMed RefillReasonOnset DateCommentsMed Imqclo3301/26/2025ReasonCommentsConstipationStates this has been going on forever and [...] and also diclofenac and tramadol. ReasonOnset DateCommentsMed Nbormy6104/17/2025ReasonOnset DateCommentsMed Refill 05/22/2025ReasonOnset DateCommentsMed Qaspho9806/26/2025ReasonCommentsWeight Loss Weight loss, gastric pain, nausea, vomiting, dysphagia, constipation, referred by Haley Morrell CNPSpecialtyDiagnoses / ProceduresReferred By ContactReferred To ContactGeneral Surgery Diagnoses Weight loss Gastric pain Nausea and vomiting, unspecified vomiting type Dysphagia, unspecified type Procedures [place] OFFICE OUTPATIENT VISIT 60-74 MINS [facility] [id number] (SNOMED CT) - AMB REFERRAL TO GENERAL SURGERY Haley Morrell, LOCATION DIRECTOR-TENNIS BALL COVER CEMENTER [address] [facility] [address] [place], [place] [id number] Phone: tel: fax: Gustavo Castro DO [address] [place] [id number] Phone: tel: fax: Referral IDStatusReasonStart DateExpiration DateVisits RequestedVisits [id number] DateCommentsAppointment Jccazgx6807/24/2025ReasonOnset DateCommentsMed Qcqkcz6807/26/2025ReasonComments Establish CareReasonOnset HwtbLqtgotqkBooruqbv72/24/2025ReasonCommentsConsult EGD/Colonoscopy- Pt states he has chronic constipation, losing weight, no appetite, vomiting x 7 months.SpecialtyDiagnoses / ProceduresReferred By Contact Referred To ContactGeneral Surgery Diagnoses Screening for colon cancer Unintentional weight loss Procedures [place] OFFICE/OUTPATIENT NEW HIGH MDM 60 MINUTES Jean Pierre Galo, DO [address] [place] [address] Phone: tel: fax: Jarod Wall, DO [address] [place] [address] Phone: tel: fax: Referral IDStatusReasonStart DateExpiration DateVisits RequestedVisits [id number] Specialty Services Required /[id number] Care Teams (unrecognized sec tion and content) Team MemberRelationshipSpecialtyStart DateEnd Date Carlos Enrique Maguire MD [address] [facility] [address] [place] [address] PCP - [facility]02/26/23 Carlos Enrique Maguire MD [address] [facility] [address] [place] [address] PCP - GeneralInternal Medicine02/10/23Team MemberRelationshipSpecialtyStart Date End Date Carlos Enrique Maguire MD [address] [facility] [address] [place] [address] PCP - [facility]02/26/23 Carlos Enrique Maguire MD [address] [place] [address] PCP - [facility]02/10/23Te MemberRelationshipSpecialtyStart Date End Date Carlos Enrique Maguire MD [address] [place] [address] PCP - [facility]02/26/23 Carlos Enrique Maguire MD [address] [place] [address] PCP - [facility]02/10/23Te MemberRelationshipSpecialtyStart Date End Date Carlos Enrique Maguire MD [address] [place] [address] [facility] - Critical access hospital02/26/23 Carlos Enrique Maguire MD [address] [place] [address] PCP - [facility]02/10/23Te MemberRelationshipSpecialtyStart Date End Date Carlos Enrique Maguire MD [address] [place] [address] PCP - [facility]02/26/23 Carlos Enrique Maguire MD [address] [place] [address] PCP - [facility]02/10/23Te MemberRelationshipSpecialtyStart Date End Date Carlos Enrique Maguire MD [address] [place] [address] PCP - [facility]02/10/23 Carlos Enrique Maguire MD [address] [place] [address] PCP - [facility]11/18/24Team MemberRelationshipSpecialtyStart DateEnd Date Carlos Enrique Maguire MD [address] [place] [address] PCP - GeneralInternal Medicine02/10/23 Carlos Enrique Maguire MD [address] [place] [address] PCP - [facility]11/18/24Team MemberRelationshipSpecialtyStart DateEnd Date Carlos Enrique Maguire MD [address] [place] [address] PCP - GeneralInternal Medicine02/10/23Team MemberRelationshipSpecialtyStart Date End Date Carlos Enrique Maguire MD [address] [place] [address] PCP - GeneralInternal Medicine02/10/23Team MemberRelationshipSpecialtyStart Date End Date Carlos Enrique Maguire MD [address] [place] [address] PCP - GeneralInternal Medicine02/10/23Team MemberRelationshipSpecialtyStart Date End Date Carlos Enrique Maguire MD [address] [place] [address] PCP - GeneralInternal Medicine02/10/23Team MemberRelationshipSpecialtyStart Date End Date Carlos Enrique Maguire MD [address] [place] [address] PCP - GeneralInternal Medicine02/10/23Team MemberRelationshipSpecialtyStart Date End Date Carlos Enrique Maguire MD [address] [place] [address] PCP - GeneralInternal Medicine02/10/23Team MemberRelationshipSpecialtyStart Date End Date Carlos Enrique Maguire MD [address] [place] [address] PCP - GeneralInternal Medicine02/10/23am MemberRelationshipSpecialtyStart Date End Date Carlos Enrique Maguire MD [address] [place] [address] PCP - GeneralInternal Medicine02/10/23Team MemberRelationshipSpecialtyStart Date End Date Carlos Enrique Maguire MD [address] [place] [address] PCP - GeneralInternal Medicine03/15/25Team MemberRelationshipSpecialtyStart Date End Date Carlos Enrique Maguire MD [address] [place] [address] PCP - GeneralInternal Medicine02/10/23Team MemberRelationshipSpecialtyStart Date End Date Carlos Enrique Maguire MD [address] [place] [address] PCP - GeneralInternal Medicine03/15/25 Team Status: Active Member Role Status Dates Carlos Enrique Maguire II MD Primary Care Provider Active Team Status: Inactive Member Role Status Dates Carlos Enrique Maguire II MD Primary Care Provider Active Start: May 17, 2025 End: May 17, 2025Rebeca Dill APRN DISTRICT ENGINEER-Melvintenneymar Provider ActiveStart: May 17, 2025 End: May 17, 2025Team MemberRelationshipSpecialtyStart DateEnd Date Carlos Enrique Maguire MD [address] [place] [address] PCP - GeneralInternal Medicine02/10/23Team MemberRelationshipSpecialtyStart Date End Date Carlos Enrique Maguire MD [address] [place] [address] PCP - GeneralInternal Medicine02/10/23Team MemberRelationshipSpecialtyStart Date End Date Carlos Enrique Maguire MD [address] [place] [address] PCP - GeneralInternal Medicine03/15/25Team MemberRelationshipSpecialtyStart Date End Date Carlos Enrique Maguire MD [address] [place] [address] PCP - GeneralInternal Medicine03/15/25Team MemberRelationshipSpecialtyStart Date End Date Carlos Enrique Maguire MD [address] [place] [address] PCP - GeneralInternal Medicine02/10/23Team MemberRelationshipSpecialtyStart Date End Date Carlos Enrique Maguire MD [address] [place] [address] PCP - GeneralInternal Medicine02/10/23 Team Status: Inactive Member Role Status Dates Carlos Enrique Maguire II MD Primary Care Provider Active Start: June 06, 2025 End: June 06Blaise Beaver ProviderActiveStart: June 06, 2025 End: June 06, 2025Team MemberRelationshipSpecialtyStart DateEnd Date Carlos Enrique Maguire MD [address] [place] [address] PCP - GeneralInternal Medicine02/10/23 Team Status: Inactive Member Role Status Dates Carlos Enrique Maguire II MD Primary Care Provider Active Start: June 13, 2025 End: June 13mandyesica Bhatti , APRNAtchaniexcela [facility] ProviderActiveStart: June 13, 2025 End: June 13, 2025Team MemberRelationshipSpecialtyStart DateEnd Date Carlos Enrique Maguire MD [address] [place] [address] PCP - GeneralInternal Medicine02/10/23Team MemberRelationshipSpecialtyStart Date End Date Carlos Enrique Maguire MD [address] [place] [address] PCP - GeneralInternal Medicine02/10/23Team MemberRelationshipSpecialtyStart Date End Date Carlos Enrique Maguire MD [address] [place] [address] PCP - GeneralInternal Medicine03/15/25Team MemberRelationshipSpecialtyStart Date End Date Carlos Enrique Maguire MD [address] [place] [address] PCP - GeneralInternal Medicine06/26/25Team MemberRelationshipSpecialtyStart Date End Date Carlos Enrique Maguire MD [address] [place] [address] PCP - GeneralInternal Medicine03/15/25 Team Status: Inactive Member Role Status Dates Carlos Enrique Maguire II MD Primary Care Provider Active Start: June 30, 2025 End: June 30, 2025Blaise Mora ProviderActiveStart: June 30, 2025 End: June 30, 2025Team MemberRelationshipSpecialtyStart DateEnd Date Carlos Enrique Maguire MD [address] [place] [address] [facility]/15/25Team MemberRelationshipSpecialtyStart Date End Date Alexander Lopez MD [address] [place] [address] PCP - Generalmily Lcfnphlu43/5/25Team MemberRelationshipSpecialtyStart DateEnd Date Alexander Lopez MD [address] [place] [address] PCP - Generalmily Tecyfmuy91/5/25Team MemberRelationshipSpecialtyStart DateEnd Date Alexander Lopez MD [address] [place] [address] PCP - Generalmily Paeclwol88/5/25Team MemberRelationshipSpecialtyStart DateEnd Date Alexander Lopez MD [address] [place] [address] PCP - Generalmily Aimhlpjl55/5/25Team MemberRelationshipSpecialtyStart DateEnd Date Alexander Lopez MD [address] [place] [address] PCP - GeneralFamily Kewmxmxp94/5/25am MemberRelationshipSpecialtyStart DateEnd Date Unallocated, Noms MD Reshma [address] [place] [address] PCP - GeneralFamily Medicine06/27/25am MemberRelationshipSpecialtyStart DateEnd Date Alexander Lopez MD [address] [place] [address] [facility] Ckgoufdo73/5/25 MemberRelationshipSpecialtyStart DateEnd Date Jean Pierre Galo, DO [address] [place] [address] [facility] - [facility] Ruykpakr67/21/25am MemberRelationshipSpecialtyStart Date End Date Jean Pierre Galo, DO [address] [place] [address] PCP - [facility] Nfgeyxmx72/21/25am MemberRelationshipSpecialtyStart Date End Date Jean Pierre Galo, DO [address] [place] [address] PCP - Generalmily Wfzxvtfs17/21/25Team MemberRelationshipSpecialtyStart Date End Date Jean Pierre Galo, DO [address] [place] [address] [facility] - [facility] Diosffzz63/21/25Team MemberRelationshipSpecialtyStart Date End Date Jean Pierre Galo, DO [address] [place] [address] PCP - Generalmily Uxtqksjr59/21/25 Carlos Enrique Maguire MD [address] [facility] [address] [place] [address] PCP - [place]05/05/25Te MemberRelationshipSpecialtyStart DateEnd Date Jean Pierre Galo, [address] [place] [address] PCP - [facility]07/25/25 Carlos Enrique Maguire MD [address] [facility] [address] [place] [address] PCP - [place]05/05/25Te MemberRelationshipSpecialtyStart DateEnd Date Jean Pierre Galo DO [address] [place] [address] PCP - [facility]07/25/25 Carlos Enrique Maguire MD [address] [facility] [address] [place] [address] PCP - [place]05/05/25Te MemberRelationshipSpecialtyStart DateEnd Date Jean Pierre Galo, DO [address] [place] [address] PCP - [facility]07/25/25 Alexander Lopez MD [address] [place] [address] PCP - [place]07/05/25Te MemberRelationshipSpecialtyStart DateEnd Date Jean Pierre Galo DO [address] [place] [address] PCP - GeneralFalaly Fwuofcqz30/21/25 Alexander Lopez MD [address] [place] [address] PCP - [place]07/05/25 Goals (unrecognized section and content) Goals may [...] BE BASED ON THE PRIMARY CLINICAL RECORDS. [employer] [facility]. provides no warranty or guarantee of the accuracy or completeness of information in this document.
[2025-09-12 14:59] LABS: Folate 12.00 ng/mL (8.60-58.90)
[2025-09-13 04:07] LABS: Vitamin B12 585 pg/mL (232-1245)
== END 2025-09-12 13:46 | disposition home or self-care (01) ==
PROVIDERS: PCP Family Medicine; Visit Provider Emergency Medicine
DX: G62.9 Polyneuropathy, unspecified (principal)
CPT/HCPCS: 36415; 82607; 82746